=== PATIENT | male | born 1965 | race Caucasian/White ===

== ENCOUNTER 2016-04-19 10:43 | Inpatient (IN) | payer MEDICARE, OTHER ==
[2016-04-19 10:47] VITALS: BMI 28.1
[2016-04-19] MEDS ORDERED: Albuterol-Ipratrop 3 mg / 0.5 (3 ml) UD IH STA (11:07)
--- NOTE | 2016-04-19 11:08 | ED PDOC ---
Arrival/HPI - General Chief Complaint: Altered Mental Status Time Seen by Provider: 04/19/16 11:04 Historian: EMS - History of Present Illness Narrative History of Present Illness (Text): 04/19/16 11:07 A 50 year old male, whose past medical history includes hypertension and ESRD, presents to ED with paramedics after reportedly he was found "unresponsive at the [facility]" by a bystander. Patient reportedly was noted to be confused and lethargic and brought for evaluation. Patient unable to provide further history. Time/Duration: Prior to Arrival Symptom Onset: Other (unknown down time) Past Medical History - Cardiac Hx Hypertension: Yes - Pulmonary Hx Pneumonia: Yes - Neurological Hx Dizziness: Yes - HEENT Other/Comment: with dentures upper and lower dentures - Renal Hx Renal Disorder: Yes Hx Dialysis: Yes - Hematological/Oncological Hx Hepatitis B: Yes - Musculoskeletal/Rheumatological Hx Arthritis: Yes - Gastrointestinal Hx Gastrointestinal Ulcer: Yes (gi bleed) - Psychiatric Hx Substance Use: No - Surgical History Hx Open Heart Surgery: Yes - Anesthesia Hx Anesthesia: Yes Hx Anesthesia Reactions: No Hx Malignant Hyperthermia: No - Suicidal Assessment Feels Threatened In Home Enviroment: No Family/Social History Family/Social History: Unknown Family HX Smoking Status: Heavy Smoker > 10 Cigarettes Daily Hx Alcohol Use: Yes (occasionally) Hx Substance Use: No Allergies/Home Meds Allergies/Adverse Reactions: Allergies No Known Allergies Allergy (Verified 09/27/15 21:01) Home Medications: Home Meds Medication Instructions Recorded Confirmed Unobtainable 09/27/15 04/19/16 Review of Systems - Review of Systems Systems not reviewed;Unavailable: Acuity of Condition Gastrointestinal: absent: Vomiting Physical Exam - Physical Exam Narrative Physical Exam (Text): Head: Atraumatic. Normocephalic. Eyes: Pupils are NOT pinpoint, they are reactive minimally. No pathologic nystagmus noted. ENT: Mucous membranes are extremely dry and tacky. No drooling or pharyngeal edema. Neck: Supple. Full ROM. No JVD. No lymphadenopathy. Cardiovascular: Regular rate. Regular rhythm. Systolic murmur. Pulmonary/Chest: No evidence of respiratory distress. Not tachypneic. Mild rhonchi. Abdominal: Soft with mild distension. No pulsatile masses. No rebound or guarding. No incarcerated hernia. Back: No CVA tenderness. No midline deformity. Normal inspection. Extremities: No edema. Pulses intact. Rectal: ulceration, no melena or gross bleeding. Skin: Skin is cool and pale. Neurological: Patient is lethargic. Will respond to painful stimul and move all 4 extremities. Will open eyes to command at times but does not have meaningful verbal ineraction. No facial droop noted. Fine tremors. Hyperreflexive in lower extremities Rectal: no gross bleeding or melena Psychiatric: Poor eye contact. General: patient is found to have vials likely consistent with drug paraphernalia on his property upon arrival, police contacted regarding this 04/19/16 23:21 Vital Signs Reviewed: Yes Vital Signs Temp Pulse Resp BP Pulse Ox 04/19/16 15:48 95.7 F L 78 22 92/52 L 99 04/19/16 14:44 78 24 87/47 L 98 04/19/16 13:20 71 26 H 98/58 L 99 04/19/16 13:00 94.3 F L 70 16 93/57 L 97 04/19/16 12:50 76 26 H 101/53 L 90 L 04/19/16 12:35 60 29 H 83/45 L 91 L 04/19/16 12:20 68 23 95/59 L 91 L 04/19/16 11:09 91.9 F L 66 14 73/34 L 87 L Temperature: Hypothermic Blood Pressure: Hypotensive Respiratory Rate: Normal Appearance: Positive for: Ill-Appearing, Unkept Pain Distress: Severe Mental Status: Positive for: Lethargic Medical Decision Making ED Course and Treatment: 04/19/16 11:07 History obtained by EMS as paitent with AMS. Prior visits and studies reviewed: Prior Visits: Notes and results from previous visits were reviewed. Patient had a cardiac catheterization performed on 10/01/15, report showed: Report date: 10/01/15 13:46 Procedure: Right and left heart catherization with coronary angiography, left ventriculogram, right heart pressures, subclavian angiograms and supra-aortic valvular injection. Dictated by: Josh Kay MD The findings on catheterization included hemodynamic studies revealed a mean atrial pressure of 23 mmHG, the RV pressures were 44/13 mmHg. Because prosthetc tricupsid valve, thSwan-Anabell catheter could not advance to the pulmoary artery. LVEDP was 18 mmHg and no gradient across te aortic valve. Angiographic studies included a left ventriculogram was performed in the CARSON projection. In the CARSON projection, wall motion in within normal limits. Estimated ejection fraction is 55-60%. Supr-aortic valvular injection reveals trace aortic insufficiency. His coronary anatomy revealed a left main artery that eas unremarkable. The LAD and diagonal vessels reveled intimal irregularities without critical lesions. The circumflex artery and ontuse marginal branches reveled initmal irregularities without significant stenosis. The right coronary artery was a large vessel with slow filling. However, no coronary lesions were noted. Selective bilateral subclavian angiograms revealed no ostial stenoses in both vessels with no blockages noted. Angio-Seal was used to close the left femoral artery site. The patient tolerated the procedure well. Patient had a chest CT performed on 09/30/15, report showed: Report Date : 09/30/2015 09:59:05 PROCEDURE: CT Chest with contrast (Pulmonary Angiogram) Dictator : Westley Christiansen MD IMPRESSION: Bilateral pleural effusions, probably loculated. Moderate ascites. No evidence of pulmonary embolus Progress Notes: Patient on initial evaluation is at times responsive to stimuli. He is a dialysis patient, and at some point verbalized he was due for dialysis. Prior admission to Dr. Talavera was reviewed, patient does not follow-up with Dr. Talavera on a consistent basis. Patient reportedly had seen Dr. Rossi from nephrology in the past, I did call his office although they state he is not thier patient. He is hypothermic and was placed on EDDI hugger. Patient was given d50 prior to arrival with no significant improvement in mental status. He has heroin noted on his possession, prior history of drug and alcohol abuse. Narcan given and he appears more interactive. He is not in respiratory distress, although has had hypotension on re- evaluation. EKG difficult to interpret due to tremulousness, although patient is noted to have heart rate 80s. Patient given boluses of iv fluids. Report Date : 04/19/2016 13:04:28 Procedure: Chest xray Dictator : Qiana Estrada MD IMPRESSION: Mild pulmonary venous congestion. Background of COPD. Report Date : 04/19/2016 14:11:04 PROCEDURE: CT HEAD WITHOUT CONTRAST. Dictator : Qiana Estrada MD IMPRESSION: No acute intracranial abnormality. Moderate global parenchymal volume loss, advanced for the patient's age. Patient with improvement in BP. Mental status remains slightly more interactive. Suspect possible overdose, although cannot exclude shock, sepsis ( although initial lactate unremarkable). Prior cardiac cath reviewed. He is hypocalcemic. Abdomen appears nontender with serial exams. Will admit to ICU, consult nephrology for dialysis, continued to monitor cardiac status and serial neurological exams. Will maintain cardiovascular monitoring in the ICU. Bp to be monitored to assess for any further volume or pressor support. Will continue to monitor neuro status. Case d/w ICU team accepts admission and will admit to hospitalist service. Further medications as per icu team, care turned over to certified nurses' aide. 04/19/16 23:23 - Critical Care Critical Care Minutes: 60 minutes - Lab Interpretations Lab Results: 04/19/16 12:56 04/19/16 12:56 Lab Results 04/19/16 12:56: WBC 6.5 D, RBC 4.03, Hgb 11.8 L, Hct 36.5 L, MCV 90.6, MCH 29.3 , MCHC 32.3, RDW 14.8 H, Plt Count 113 L, MPV 12.3 H, Gran % 78.1 H, Lymph % ( Auto) 9.9 L, [place] % (Auto) 11.3 H, Eos % (Auto) 0.5 L, Baso % (Auto) 0.2, Gran # 5.05, Lymph # 0.6 L, [place] # 0.7 H, Eos # 0.0, Baso # 0.01, PT 12.4 H, INR 1.15 H, APTT 27.3, Sodium 139, Potassium 3.7, Chloride 101, Carbon Dioxide 26, Anion Gap 16, BUN 60 H, Creatinine 8.6 H*, Est GFR ( Amer) 8, Est GFR ( Non-Af Amer) 7, Random Glucose 77, Calcium 6.5 L*, Total Bilirubin 1.5 H, AST 50 , ALT 33, Alkaline Phosphatase 198 H, Lactate Dehydrogenase 713 H, Total Creatine Kinase 971 H, CK-MB (CK-2) 20.5 H, CK-MB (CK-2) % 2.1 L, Troponin I 0.01 D, NT-Pro-B Natriuret Pep 55817 H, Total Protein 4.5 L, Albumin 1.9 L, Globulin 2.6, Albumin/Globulin Ratio 0.7 L, Procalcitonin 0.92 H, Alcohol, Quantitative < 10 04/19/16 12:30: pCO2 47 H, pO2 52.0 L, HCO3 23.7, ABG pH 7.31 L, ABG Total CO2 25.1, ABG O2 Saturation 83.7 L, ABG Base Excess -2.9 L, ABG Potassium 3.7, Glucose 75, Lactate 1.5, FiO2 21.0, Sodium 137.0, Chloride 104.0, Arterial Blood Potassium 3.7, Digoxin 1.1 I have reviewed the lab results: Yes - RAD Interpretation Radiology Orders: 04/19/16 11:04 HEAD W/O CONTRAST [CT] Stat CHEST PORTABLE [RAD] Stat - EKG Interpretation EKG Interpretation (Text): 04/19/16 15:14 EKG at 13:12 extremely poor quality due to tremors, rate appears to be 69-70, sinus rhythm versus accelerated junction Interpreted by ED Physician: Yes Type: 12 lead EKG - Medication Orders Current Medication Orders: Heparin Sodium (Porcine) (Heparin) 5,000 units SC Q12 SIMON PRN Reason: Protocol Ceftriaxone Sodium (Rocephin 2 Gm Ivpb) 100 mls @ 100 mls/hr IVPB DAILY SIMON PRN Reason: Protocol Last Admin: 04/19/16 17:47 Dose: 100 MLS/HR eMAR Start Stop Document 04/19/16 17:47 CLA (Rec: 04/19/16 17:48 CLA [id number]) Intravenous Solution Start Date 04/19/16 Start Time 17:48 End Date 04/19/16 End time 18:55 Total Infusion Time 67 Lactulose (Enulose) 20 gm PO BID [facility] Last Admin: 04/19/16 17:48 Dose: 20 GM Lorazepam (Ativan) 2 mg IVP Q4H PRN; Protocol PRN Reason: Agitation Midodrine (Proamatine) 10 mg PO DAILY [facility] Last Admin: 04/19/16 17:48 Dose: 10 MG Pantoprazole Sodium (Protonix Inj) 40 mg IVP DAILY [facility] Rifaximin (Xifaxan) 550 mg PO BID SIMON PRN Reason: Protocol Last Admin: 04/19/16 17:48 Dose: 550 MG Discontinued Medications Albuterol/Ipratropium (Duoneb 3 Mg/0.5 Mg (3 Ml) Ud) 3 ml IH STAT STA Stop: 04/19/16 11:08 Last Admin: 04/19/16 11:54 Dose: 3 ML Heparin Sodium (Porcine) (Heparin Lock Flush) Confirm Administered Dose 300 unit .ROUTE .STK-MED ONE Stop: 04/19/16 12:31 Last Admin: 04/19/16 12:55 Dose: 300 UNIT Sodium Chloride (Sodium Chloride 0.9%) 500 mls @ 1,000 mls/hr IV .Q30M STA Stop: 04/19/16 12:02 Last Admin: 04/19/16 11:47 Dose: 1,000 MLS/HR eMAR Start Stop Document 04/19/16 11:47 JOL (Rec: 04/19/16 11:47 [id number] [id number]) Intravenous Solution Start Date 04/19/16 Start Time 11:47 End Date 04/19/16 End time 12:17 Total Infusion Time 30 Sodium Chloride (Sodium Chloride 0.9%) 500 mls @ 1,000 mls/hr IV .Q30M STA Stop: 04/19/16 15:22 Last Admin: 04/19/16 15:41 Dose: 1,000 MLS/HR eMAR Start Stop Document 04/19/16 15:41 JOL (Rec: 04/19/16 15:41 [id number] [id number]) Intravenous Solution Start Date 04/19/16 Start Time 15:41 End Date 04/19/16 End time 16:11 Total Infusion Time 30 Vancomycin HCl (Vancomycin 1gm) 250 mls @ 167 mls/hr IVPB DAILY ONE PRN Reason: Protocol Stop: 04/19/16 18:19 Last Admin: 04/19/16 17:48 Dose: 167 MLS/HR eMAR Start Stop Document 04/19/16 17:48 CLA (Rec: 04/19/16 17:48 CLA [id number]) Intravenous Solution Start Date 04/19/16 Start Time 17:48 End Date 04/19/16 End time 19:30 Total Infusion Time 102 Influenza Virus Vaccine (Fluvirin) 45 mcg IM .ONCE ONE Stop: 04/19/16 22:17 Naloxone HCl (Narcan) Confirm Administered Dose 0.4 mg .ROUTE .STK-MED ONE Stop: 04/19/16 11:44 Last Admin: 04/19/16 11:44 Dose: 0.4 MG Naloxone HCl (Narcan) 0.4 mg IVP STAT STA Stop: 04/19/16 11:46 Last Admin: 04/19/16 12:48 Dose: 0.4 MG IVP Administration Document 04/19/16 12:48 ANTONIO (Rec: 04/19/16 12:49 ANTONIO [id number]) Charges for Administration # of IVP Administrations 1 Pneumococcal Polyvalent Vaccine (Pneumovax 23 Vaccine) 0.5 ml IM .ONCE ONE Stop: 04/19/16 22:17 Disposition/Present on Arrival - Present on Arrival Any Indicators Present on Arrival: Yes History of DVT/PE: No History of Uncontrolled Diabetes: No Urinary Catheter: Yes History of Decub. Ulcer: No History Surgical Site Infection Following: None - Disposition Have Diagnosis and Disposition been Completed?: Yes Diagnosis: Altered mental status, Overdose, Renal failure, Hypocalcemia, Hypothermia, Hypotension Disposition: HOSPITALIZED Disposition Time: 13:00 Patient Plan: Admission, ICU Condition: CRITICAL
[2016-04-19] MEDS ORDERED: Sodium Chloride 0.9% 500 ML IV STA ×2 (11:33→14:53)
[2016-04-19] MEDS ORDERED: Naloxone 0.4 mg/ml Inj (Adult) SC STA (11:43)
[2016-04-19] MEDS ORDERED: Naloxone 0.4 mg/ml Inj (Adult) ONE (11:43)
[2016-04-19] MEDS ORDERED: Naloxone 0.4 mg/ml Inj (Adult) IVP STA (11:45)
[2016-04-19 12:57] LABS: ADD MANUAL DIFF? NO
[2016-04-19 12:58] LABS: ARTERIAL BLOOD GAS HCO3 23.7 mmol/L (21-28); ARTERIAL BLOOD GAS PH 7.31 (7.35-7.45)
[2016-04-19 13:01] LABS: BASO # 0.01 K/mm3 (0.0-2.0); BASO % 0.2 % (0.0-3.0); EOS % 0.5 % (1.5-5.0); GRAN # 5.05 (1.4-6.5); GRAN % 78.1 % (50.0-68.0); HEMATOCRIT 36.5 % (42.0-52.0); LYMPH # 0.6 (1.2-3.4); LYMPH % 9.9 % (22.0-35.0); MEAN CELL VOLUME 90.6 fL (80.0-105.0); MEAN CORPUSCULAR HEMOGLOBIN 29.3 pg (25.0-35.0); MEAN CORPUSCULAR HGB CONC 32.3 g/dl (31.0-37.0); MEAN PLATELET VOLUME 12.3 fl (7.0-11.0); MONO # 0.7 (0.1-0.6); MONO % 11.3 % (1.0-6.0); PLATELET COUNT 113 10^3/uL (120.0-450.0); RED CELL DISTRIBUTION WIDTH 14.8 % (11.5-14.5); WHITE BLOOD COUNT 6.5 10^3/ul (4.5-11.0)
--- NOTE | 2016-04-19 13:05 | RAD ---
HISTORY: Altered mental status COMPARISON: 09/29/2015 FINDINGS: The right-sided central venous catheter terminates in the right atrium. There is stable appearance of a left subclavian stent. LUNGS: Lung markings are accentuated. There is chronic scarring in both lungs. PLEURA: No significant pleural effusion identified, no pneumothorax apparent. CARDIOVASCULAR: The heart is normal in size. Status post median sternotomy and aortic valve replacement. OSSEOUS STRUCTURES: No significant abnormalities. VISUALIZED UPPER ABDOMEN: Normal. OTHER FINDINGS: None. IMPRESSION: Mild pulmonary venous congestion. Background of COPD.
[2016-04-19 13:11] LABS: ALB/GLOB RATIO 0.7 (1.1-1.8); BILIRUBIN,TOTAL 1.5 mg/dL (0.2-1.3); POTASSIUM 3.7 mmol/L (3.6-5.0); TOTAL PROTEIN 4.5 g/dL (5.8-8.3)
[2016-04-19 13:13] LABS: CALCIUM 6.5 mg/dL (8.4-10.5); INR 1.15 (0.93-1.08); PARTIAL THROMBOPLASTIN TIME 27.3 Seconds (23.7-30.8)
[2016-04-19 13:32] LABS: TROPONIN I 0.01 ng/mL
--- NOTE | 2016-04-19 14:12 | CT ---
PROCEDURE: CT HEAD WITHOUT CONTRAST. HISTORY: Altered mental status COMPARISON: None available. TECHNIQUE: Axial computed tomography images were obtained through the head/brain without intravenous contrast. Radiation dose: Total exam DLP = 812.28 mGy-cm. FINDINGS: HEMORRHAGE: No intracranial hemorrhage. BRAIN: There are mild chronic microangiopathic changes. There is no mass, mass effect or abnormal extra-axial fluid collection. VENTRICLES: There is moderate global parenchymal volume loss and proportionate enlargement of the ventricles and cortical sulci. CALVARIUM: Within normal limits. PARANASAL SINUSES: There is mild polypoid mucosal thickening in the paranasal sinuses. MASTOID AIR CELLS: Predominantly clear. OTHER FINDINGS: None. IMPRESSION: No acute intracranial abnormality. Moderate global parenchymal volume loss, advanced for the patient's age.
--- NOTE | 2016-04-19 15:46 | US ---
HISTORY: Ascites COMPARISON: None. TECHNIQUE: Grayscale imaging was performed. FINDINGS: LIVER: Measures 19.4 cm. Normal echogenicity of the liver parenchyma. No mass. No intrahepatic bile duct dilatation. GALLBLADDER: Unremarkable. No gallstones. COMMON BILE DUCT: Measures 5.0 mm. No stones. No dilatation. PANCREAS: Unremarkable as visualized. No mass. No ductal dilatation. RIGHT KIDNEY: Measures 7.3cm. Small in size with diffuse increased echogenicity. No hydronephrosis or nephrolithiasis. LEFT KIDNEY: Measures 7.6cm. Small in size with diffuse increased echogenicity. No hydronephrosis or nephrolithiasis. SPLEEN: Mildly enlarged and measures 13.3 cm. Normal echotexture. AORTA: No aneurysmal dilatation. IVC: Unremarkable. OTHER FINDINGS: There are moderate bilateral pleural effusions. There is moderate abdominal ascites. IMPRESSION: Moderate bilateral pleural effusions and moderate abdominal ascites. Medical renal disease. Mild hepatosplenomegaly.
--- NOTE | 2016-04-19 16:10 | CP.PCM.CON ---
<Foster Santoyo - Last Filed: 04/19/16 18:14> History of Present Illness - History of Present Illness History of Present Illness: Medicine PGY1 - GI service cc: ALE HPI: Patient is a 50yo male with past medical history of CAD s/p CABG, Hepatitis C, Ascites, Valvular disease, ESRD on hemodialysis (//Mon) that presented via EMS from [facility] care home with altered mental status. Patient was lethargic on presentation and unable to provide thorough history. Per ED history , patient was found by bystander at the [facility]. Multiple bags of heroine were found in his possession and he was subsequently given 2 doses of narcan. On arrival to the ED, patient's vitals were as follows: temperature 91.9, pulse 66bpm, blood pressure 73/34, respiratory rate 16, o2 saturation 87% on room air. Labs were notable for hgb of 11.8, hct 36.5, platelets 113, INR 1.15, total biliribuin 1.5, ALKP 198, BUN 60, Creatinine 8.6, Albumin 1.9, calcium 6.5. Patient was admitted to the ICU for further evaluation/treatment. 12point ROS limited due to patient status PMHx: CAD s/p CABG, Chronic Hepatitis C, ascites, valvular disease, lymphadenopathy, ascites, ESRD PSHx: CABG PFHx: Unknown Allergies: NKDA Social History: Homeless, lives at the [facility]. History of drug abuse heroine/ cocaine, tobacco use over 20yrs, alcohol abuse Review of Systems - Review of Systems Review of Systems: 12 point ROS limited due to patient status Past Patient History - Past Social History Smoking Status: Heavy Smoker > 10 Cigarettes Daily - CARDIAC Hx Hypertension: Yes - PULMONARY Hx Pneumonia: Yes - NEUROLOGICAL Hx Dizziness: Yes - HEENT Other/Comment: with dentures upper and lower dentures - RENAL Hx Chronic Kidney Disease: Yes Hx Dialysis: Yes - HEMATOLOGICAL/ONCOLOGICAL Hx Hepatitis B: Yes - MUSCULOSKELETAL/RHEUMATOLOGICAL Hx Arthritis: Yes - PSYCHIATRIC Hx Substance Use: No - SURGICAL HISTORY Hx Open Heart Surgery: Yes - ANESTHESIA Hx Anesthesia: Yes Hx Anesthesia Reactions: No Hx Malignant Hyperthermia: No Meds Allergies/Adverse Reactions: Allergies Allergy/AdvReac Type Severity Reaction Status Date / Time No Known Allergies Allergy Verified 09/27/15 21:01 - Medications Medications: Current Medications Pantoprazole Sodium (Protonix Inj) 40 mg IVP DAILY SIMON Physical Exam - Constitutional Appears: In Acute Distress, Unkempt, Chronically Ill - Head Exam Head Exam: ATRAUMATIC, NORMOCEPHALIC - Eye Exam Eye Exam: EOMI - ENT Exam ENT Exam: Mucous Membranes Dry - Respiratory Exam Respiratory Exam: Decreased Breath Sounds. absent: Rales, Rhonchi, Wheezes - Cardiovascular Exam Cardiovascular Exam: RRR, +S1, +S2, Systolic Murmur. absent: Rubs - GI/Abdominal Exam GI & Abdominal Exam: Distended (mild distention), Soft. absent: Firm, Guarding , Rebound, Rigid, Tenderness - Extremities Exam Extremities exam: Negative for: pedal edema - Neurological Exam Additional comments: lethargic; responds to name and is able to move all 4 extremities. Results - Vital Signs Recent Vital Signs: Last Vital Signs Temp 95.7 F L 04/19/16 15:48 Pulse 78 04/19/16 15:48 Resp 22 04/19/16 15:48 BP 92/52 L 04/19/16 15:48 Pulse Ox 99 04/19/16 15:48 - Labs Result Diagrams: 04/19/16 12:56 04/19/16 12:56 Assessment & Plan - Assessment and Plan (Free Text) Assessment: 50yo male with history of CAD s/p CABG, Hepatitis C, Ascites, Valvular disease, ESRD on hemodialysis (/) that presented via EMS from [facility] with altered mental status 1. Hepatic encephalopathy 2. Chronic hepatitis C 3. Ascites 4. ESRD on hemodialysis 5. CAD Plan: -Continue lactulose 20gm BID, titrate to 2-3 bowel movements per day -Continue xifaxan 550mg BID -Abdominal paracentesis ordered -Abdominal US reviewed; bilateral pleural effusions and moderate abdominal ascites; mild hepatosplenomegaly -MELD-Na score of 23 -Continue current medical management as per ICU/primary team -Nephrology on board - f/u recommendations Patient seen and case discussed with attending, Dr. Quiroz - Date & Time Date: 04/19/16 Time: 16:28 <Ezekiel Quiroz - Last Filed: 04/19/16 20:18> Meds - Medications Medications: Current Medications Heparin Sodium (Porcine) (Heparin) 5,000 units SC Q12 SIMON PRN Reason: Protocol Ceftriaxone Sodium (Rocephin 2 Gm Ivpb) 100 mls @ 100 mls/hr IVPB DAILY SIMON PRN Reason: Protocol Last Admin: 04/19/16 17:47 Dose: 100 mls/hr Lactulose (Enulose) 20 gm PO BID SIMON Last Admin: 04/19/16 17:48 Dose: 20 gm Lorazepam (Ativan) 2 mg IVP Q4H PRN; Protocol PRN Reason: Agitation Midodrine (Proamatine) 10 mg PO DAILY [facility] Last Admin: 04/19/16 17:48 Dose: 10 mg Pantoprazole Sodium (Protonix Inj) 40 mg IVP DAILY [facility] Rifaximin (Xifaxan) 550 mg PO BID SIMON PRN Reason: Protocol Last Admin: 04/19/16 17:48 Dose: 550 mg Results - Vital Signs Recent Vital Signs: Last Vital Signs Temp 96.1 F L 04/19/16 16:05 Pulse 77 04/19/16 18:00 Resp 22 04/19/16 18:00 BP 101/44 L 04/19/16 18:00 Pulse Ox 90 L 04/19/16 18:00 - Labs Result Diagrams: 04/19/16 12:56 04/19/16 12:56 Labs: Laboratory Results - last 24 hr 04/19/16 04/19/16 04/19/16 16:45 17:52 18:00 POC Glucose (mg/dL) 58 L 55 L Ammonia 19 Acetaminophen < 10.0 L Attending/Attestation - Attestation I have personally seen and examined this patient.: Yes I have fully participated in the care of the patient.: Yes I have reviewed all pertinent clinical information: Yes Notes (Text): 04/19/16 20:14 50 year old male with h/o CAD s/p CABG, chronic hepatitis C, ESRD on HD, polysubstance abuse including current heroin use admitted with altered mental status. 1. Altered mental status 2. Ascites 3. Chronic hepatitis C Plan: -altered mental status may be 2/2 drug abuse, uremia, or hepatic encephalopathy , or multifactorial -ammonia is unremarkable -mild asterixis on exam -no definite diagnosis of cirrhosis on imaging, but he does have thrombocytopenia and chronic hepatitis c -his paracentesis from 09/30/15 had a SAAG > 1.1 suggestive of portal hypertension -would empirically treat for HE until he improves -recommend lactulose and rifaxamin -recommend US guided paracentesis to reevaluate saag, TP, and r/o SBP
--- NOTE | 2016-04-19 16:35 | CP.PCM.CON ---
<Adela Foreman - Last Filed: 04/19/16 16:52> History of Present Illness - History of Present Illness History of Present Illness: PGY-1 ICU consult note. 50 yo male with PMH of ESRD on HD (T,,S) cirrhosis, hep C, alcohol abuse, and h/o cocaine and heroin use presented to ED after being found unresponsive. Patient was reportedly found by bystander at [facility]. Patient was minimally responsive in ED. Head CT showed no intracranial abnormalities. Multiple bags of heroin were found in his belonging. Patient was give 2 doses of narcan. Pt become more alert but remains lethargic and confused. PMH; ESRD on HD (T,Th,S) cirrhosis, hep C, alcohol abuse, and h/o cocaine and heroin use PSH; CABG family hx; unknown med; unknown allergy; NKDA Review of Systems - Review of Systems Systems not reviewed;Unavailable: Altered Mental Status Past Patient History - Past Social History Smoking Status: Heavy Smoker > 10 Cigarettes Daily - CARDIAC Hx Hypertension: Yes - PULMONARY Hx Pneumonia: Yes - NEUROLOGICAL Hx Dizziness: Yes - HEENT Other/Comment: with dentures upper and lower dentures - RENAL Hx Chronic Kidney Disease: Yes Hx Dialysis: Yes - HEMATOLOGICAL/ONCOLOGICAL Hx Hepatitis B: Yes - MUSCULOSKELETAL/RHEUMATOLOGICAL Hx Arthritis: Yes - PSYCHIATRIC Hx Substance Use: No - SURGICAL HISTORY Hx Open Heart Surgery: Yes - ANESTHESIA Hx Anesthesia: Yes Hx Anesthesia Reactions: No Hx Malignant Hyperthermia: No Meds Allergies/Adverse Reactions: Allergies Allergy/AdvReac Type Severity Reaction Status Date / Time No Known Allergies Allergy Verified 09/27/15 21:01 - Medications Medications: Current Medications Pantoprazole Sodium (Protonix Inj) 40 mg IVP DAILY SIMON Physical Exam - Head Exam Head Exam: ATRAUMATIC, NORMOCEPHALIC - Eye Exam Eye Exam: EOMI. absent: Scleral icterus Pupil Exam: PERRL. absent: NORMAL ACCOMODATION Additional comments: Pupils are sluggish - ENT Exam ENT Exam: Mucous Membranes Dry - Respiratory Exam Respiratory Exam: Clear to Auscultation Bilateral, NORMAL BREATHING PATTERN. absent: Decreased Breath Sounds, Wheezes, Respiratory Distress - Cardiovascular Exam Cardiovascular Exam: REGULAR RHYTHM. absent: Tachycardia, Diastolic murmur, Systolic Murmur - GI/Abdominal Exam GI & Abdominal Exam: Distended, Normal Bowel Sounds, Soft. absent: Guarding, Tenderness - Extremities Exam Extremities exam: Positive for: pedal pulses present. Negative for: pedal edema - Neurological Exam Additional comments: awake, oriented x1, able to follow simple commends - Skin Skin Exam: Dry, Intact, Normal Color Results - Vital Signs Recent Vital Signs: Last Vital Signs Temp 95.7 F L 04/19/16 15:48 Pulse 78 04/19/16 15:48 Resp 22 04/19/16 15:48 BP 92/52 L 04/19/16 15:48 Pulse Ox 99 04/19/16 15:48 - Labs Result Diagrams: 04/19/16 12:56 04/19/16 12:56 Assessment & Plan - Assessment and Plan (Free Text) Assessment: 50 yo male with PMH of ESRD on HD (T,TH,S) cirrhosis, hep C, alcohol abuse, and h/o cocaine and heroin use presented with AMS 2/2 drug overdose v. hepatic encephalopathy v. hypoglycemia Plan: Neuro -AMS 2/2 drug overdose v. hepatic encephalopathy v. hypoglycemia - received 2 doses of narcan in ED, increase in responsiveness - pt is awake and attempts to answer question - drug screen pending - glucose of 77, cont to monitor - if glucose decrease will start D10 IVF - ammonia level pending to r/o hepatic encephalopathy - if elevated will insert NG tube and start lactulose - cont to monitor cardio - Low BP - pt received 1 liter NS in ED, BP improved - trops neg x1 - B[place], [id number] - cont to monitor - maintain MAP>65 pulm - cxr shows mild pulm venous congestion and background of COPD - Saturating well on non rebreather - cont supplemental O2 to maintain SaO2>90 - cont to monitor GI - h/o hep c, cirrhosis with ascites - abd US showed moderate ascites with mild hepatosplenomegaly and moderate bilateral pleural effusions - mildly elevated total bilirubin of 1.5, AST and ALT is wnl - ammonia level pending to r/o hepatic encephalopathy - if elevated will insert NG tube and start lactulose - GI consulted, Dr. Quiroz - NPO - swallow eval when patient is awake and alert - protonix ppx Renal - ESRD on HD - nephro consult, Dr. Gonzalez - corrected Ca of 8.2 - monitor electrolytes, replace as needed endo - glucose of 77 - fingerstick q1h - if hypoglycemia will start D10 IVF ID - hypothermia (91.9) without leukocytosis - lia hugger placed - blood, urine cultures - procalcitonin pending - lactate in wnl - currently low suspension for infection will hold off on abx d/w attending <Kimberly Brush MD - Last Filed: 04/19/16 17:40> Meds - Medications Medications: Current Medications Heparin Sodium (Porcine) (Heparin) 5,000 units SC Q12 SIMON PRN Reason: Protocol Ceftriaxone Sodium (Rocephin 2 Gm Ivpb) 100 mls @ 100 mls/hr IVPB DAILY SIMON PRN Reason: Protocol Vancomycin HCl (Vancomycin 1gm) 250 mls @ 167 mls/hr IVPB DAILY ONE PRN Reason: Protocol Stop: 04/19/16 18:19 Lactulose (Enulose) 20 gm PO BID SIMON Lorazepam (Ativan) 2 mg IVP Q4H PRN; Protocol PRN Reason: Agitation Midodrine (Proamatine) 10 mg PO DAILY SIMON Pantoprazole Sodium (Protonix Inj) 40 mg IVP DAILY SIMON Rifaximin (Xifaxan) 550 mg PO BID SIMON PRN Reason: Protocol Results - Vital Signs Recent Vital Signs: Last Vital Signs Temp 96.1 F L 04/19/16 16:05 Pulse 71 04/19/16 17:05 Resp 37 H 04/19/16 17:05 BP 81/40 L 04/19/16 17:05 Pulse Ox 93 L 04/19/16 17:05 - Labs Result Diagrams: 04/19/16 12:56 04/19/16 12:56 Labs: Laboratory Results - last 24 hr 04/19/16 16:45 POC Glucose (mg/dL) 58 L Attending/Attestation - Attestation I have personally seen and examined this patient.: Yes I have fully participated in the care of the patient.: Yes I have reviewed all pertinent clinical information: Yes Notes (Text): 04/19/16 17:36 50 y/o M found difficult to arrouse at [facility] skilled nursing. Brought to the ER hypothermic and confused. Thought to have possibly ingested or used heroin, narcan given with minimal response Pt awake and answering some questions upon my arrival. CT head un remarakable , neuro exam doesn't show any focal defecits Pt has a questionable liver cirrohsis history, need imaging and records to show. Hepatitis history and could be encephalopathic from Liver failure, no signs of SBP U/S abd ordered for ascites screen and need for drainage , could show liver morphology Needs Hepatology consult ESRD received, 1L normal saline due to dehydration and hypotention. Currently awake and answering more questions. Explains that sbp normally 80's and takes midodrine daily Nephrology consult pending, HD in the a.m Neuro checks q 1hr Need to follow for any late intoxication syndromes. cc time 65 min
[2016-04-19] MEDS ORDERED: Vancomycin 1gm in NS 250ml 250 ML IVPB ONE (16:50)
--- NOTE | 2016-04-19 16:55 | CP.PCM.HP ---
<Joyce Ceja - Last Filed: 04/19/16 17:23> History of Present Illness - History of Present Illness History of Present Illness: CC: Found unconscious. Patient is a 50 y/o with PMH of alcohol abuse, cocaine and heroine abuse, ascites with liver cirrhosis, ESRD ( on HD , , and Monday), CAD with CABG in the past brought in by ambulance after patient was found unconscious at [facility], where patient resides. Patient was found with bags of heroin in front of him. In the ED patient was giving 2 doses of narcan. Patient is currently awake, but very altered and lethargic. Patient is only complaining of back pain. Unable to obtain a detail history due to mental status. PMH: alcohol abuse, cocaine and heroine abuse, ascites with liver cirrhosis, ESRD ( on HD , , and Monday), CAD with CABG PSH: CABG, cardiac cath, paracentesis Home meds: unknown Social: as per prior record, patient is alcoholic, uses heroinr, cocaine. Homeless, lives in [facility]. Allergy: nkda as per records. Present on Admission - Present on Admission Any Indicators Present on Admission: No History of DVT/PE: No History of Uncontrolled Diabetes: No Urinary Catheter: No Decubitus Ulcer Present: No Review of Systems - Review of Systems Review of Systems: Unable to obtain due to mental status. Past Patient History - Past Social History Smoking Status: Heavy Smoker > 10 Cigarettes Daily - CARDIAC Hx Hypertension: Yes - PULMONARY Hx Pneumonia: Yes - NEUROLOGICAL Hx Dizziness: Yes - HEENT Other/Comment: with dentures upper and lower dentures - RENAL Hx Chronic Kidney Disease: Yes Hx Dialysis: Yes - HEMATOLOGICAL/ONCOLOGICAL Hx Hepatitis B: Yes - MUSCULOSKELETAL/RHEUMATOLOGICAL Hx Arthritis: Yes - PSYCHIATRIC Hx Substance Use: No - SURGICAL HISTORY Hx Open Heart Surgery: Yes - ANESTHESIA Hx Anesthesia: Yes Hx Anesthesia Reactions: No Hx Malignant Hyperthermia: No Meds Allergies/Adverse Reactions: Allergies Allergy/AdvReac Type Severity Reaction Status Date / Time No Known Allergies Allergy Verified 09/27/15 21:01 Physical Exam - Constitutional Appears: Toxic, No Acute Distress, Unkempt - Head Exam Head Exam: ATRAUMATIC, NORMAL INSPECTION, NORMOCEPHALIC - Eye Exam Eye Exam: EOMI, Normal appearance, PERRL. absent: Conjunctival injection, Nystagmus, Scleral icterus Pupil Exam: Fixed Additional comments: equal, sluggish. + 2 - ENT Exam ENT Exam: Mucous Membranes Dry Additional comments: left port cath - Neck Exam Neck exam: Positive for: Normal Inspection - Respiratory Exam Respiratory Exam: Decreased Breath Sounds, NORMAL BREATHING PATTERN. absent: Rales, Rhonchi, Wheezes, Respiratory Distress, Stridor - Cardiovascular Exam Cardiovascular Exam: REGULAR RHYTHM, RRR, +S1, +S2. absent: Diastolic murmur, JVD, Rubs, Systolic Murmur - GI/Abdominal Exam GI & Abdominal Exam: Distended, Normal Bowel Sounds, Rigid (mild, + fluid wave.) , Soft, Tenderness. absent: Guarding - Extremities Exam Extremities exam: Negative for: pedal edema, tenderness Additional comments: left avf - Neurological Exam Additional comments: a&ox1. unable to assess neurological status due to mental status. Grossly moves his extremities. - Psychiatric Exam Psychiatric exam: Flat Affect - Skin Skin Exam: Dry, Warm Additional comments: dry, flaking skin in the lower extremities. Results - Vital Signs Recent Vital Signs: Last Vital Signs Temp 95.7 F L 04/19/16 15:48 Pulse 78 04/19/16 15:48 Resp 22 04/19/16 15:48 BP 92/52 L 04/19/16 15:48 Pulse Ox 99 04/19/16 15:48 - Labs Result Diagrams: 04/19/16 12:56 04/19/16 12:56 Labs: Laboratory Results - last 24 hr 04/19/16 04/19/16 04/19/16 12:30 12:56 16:45 WBC 6.5 D RBC 4.03 Hgb 11.8 L Hct 36.5 L MCV 90.6 MCH 29.3 MCHC 32.3 RDW 14.8 H Plt Count 113 L MPV 12.3 H Gran % 78.1 H Lymph % (Auto) 9.9 L [place] % (Auto) 11.3 H Eos % (Auto) 0.5 L Baso % (Auto) 0.2 Gran # 5.05 Lymph # 0.6 L [place] # 0.7 H Eos # 0.0 Baso # 0.01 PT 12.4 H INR 1.15 H APTT 27.3 pCO2 47 H pO2 52.0 L HCO3 23.7 ABG pH 7.31 L ABG Total CO2 25.1 ABG O2 Saturation 83.7 L ABG Base Excess -2.9 L ABG Potassium 3.7 Sodium 137.0 139 Chloride 104.0 101 Glucose 75 Lactate 1.5 FiO2 21.0 Potassium 3.7 Carbon Dioxide 26 Anion Gap 16 BUN 60 H Creatinine 8.6 H* Est GFR ( Amer) 8 Est GFR (Non-Af Amer) 7 POC Glucose (mg/dL) 58 L Random Glucose 77 Calcium 6.5 L* Total Bilirubin 1.5 H AST 50 ALT 33 Alkaline Phosphatase 198 H Lactate Dehydrogenase 713 H Total Creatine Kinase 971 H CK-MB (CK-2) 20.5 H CK-MB (CK-2) % 2.1 L Troponin I 0.01 D NT-Pro-B Natriuret Pep 88272 H Total Protein 4.5 L Albumin 1.9 L Globulin 2.6 Albumin/Globulin Ratio 0.7 L Arterial Blood Potassium 3.7 Digoxin 1.1 Alcohol, Quantitative < 10 Assessment & Plan - Assessment and Plan (Free Text) Assessment: 50 y/o with PMH of alcohol abuse, cocaine and heroine abuse, ascites with liver cirrhosis, ESRD ( on HD , , and Monday), CAD with CABG, latest cardiac cath normal EF 09/2015. Plan: 1) AMS likely secondary to drug overdose, r/o sepsis versus hyperuremia versus AL versus CVA versus hepatic encephalopathy. - CT head with no acute ischemia - will obtain toxicology panel - alcohol levl <10 - EKG with low voltage junction-> will repeat - Trop negative x1, will trend - pending ammonia level - speech and swallow eval - seizure and fall precaution. 2) Sirs with sbp as the possible source - hypothermic-> continue cooling blanket - mendieta cultures sent - will obtain procal - chest x-ray with vascular congestion - no wbc - no lactic acidosis - tachycardic and tachypneic - abdominal u/s with moderate ascites-> will consult IR for paracentesis. - will start rocephin, will give one dose of vanco 3) Low voltage junction on ekg - repeat ekg - Normal calcium and potassium - cardio consult - will consider repating echo 4) chronic thrombocytopenia likely from chronic alcohol abuse. - plt 113- will observe for now 5) ESRD - HD due today - neprho consulted for HD 6) Hypercapneic/hypoxemic respiratory distress with respiratory acidosis - saturating well on non rebreather - in icu for monitoring 7) h.o alcohol abuse - ciwa protocal - Ativan prn forn withdrawal 8) h/o liver cirrhosis secondary to hep c - gi consulted - mod ascites - ir for paracentesis to r/o sbp. - prophylactic abx for sbp. 9) Mild rhabdo - cpk 971 - will continue to trend 10) Hypotension- r/o sepsis/septic shock - s/p a litter of fluid bolus - monitor bp in icu 11) ppi for gi prophylaxis 12) DVT prophylaxis: heparin sc. Patient seen, examined, case discussed with Dr Villanueva. - Date & Time Date: 04/19/16 Time: 17:30 <Rich RILEY,Luis - Last Filed: 04/20/16 12:23> Results - Vital Signs Recent Vital Signs: Last Vital Signs Temp 98.3 F 04/20/16 05:58 Pulse 79 04/20/16 06:12 Resp 22 04/20/16 06:12 BP 105/48 L 04/20/16 05:30 Pulse Ox 95 04/20/16 05:59 - Labs Result Diagrams: 04/20/16 10:20 04/20/16 07:00 Labs: Laboratory Results - last 24 hr 04/19/16 04/19/16 04/19/16 16:45 17:52 18:00 WBC RBC Hgb Hct MCV MCH MCHC RDW Plt Count MPV Gran % Lymph % (Auto) [place] % (Auto) Eos % (Auto) Baso % (Auto) Gran # Lymph # [place] # Eos # Baso # Sodium Potassium Chloride Carbon Dioxide Anion Gap BUN Creatinine Est GFR ( Amer) Est GFR (Non-Af Amer) POC Glucose (mg/dL) 58 L 55 L Random Glucose Calcium Phosphorus Magnesium Total Bilirubin AST ALT Alkaline Phosphatase Ammonia 19 Lactate Dehydrogenase Total Creatine Kinase CK-MB (CK-2) CK-MB (CK-2) % Troponin I Total Protein Albumin Globulin Albumin/Globulin Ratio Acetaminophen < 10.0 L 04/19/16 04/19/16 04/19/16 18:46 19:47 20:50 WBC RBC Hgb Hct MCV MCH MCHC RDW Plt Count MPV Gran % Lymph % (Auto) [place] % (Auto) Eos % (Auto) Baso % (Auto) Gran # Lymph # [place] # Eos # Baso # Sodium Potassium Chloride Carbon Dioxide Anion Gap BUN Creatinine Est GFR ( Amer) Est GFR (Non-Af Amer) POC Glucose (mg/dL) 61 L 66 70 Random Glucose Calcium Phosphorus Magnesium Total Bilirubin AST ALT Alkaline Phosphatase Ammonia Lactate Dehydrogenase Total Creatine Kinase CK-MB (CK-2) CK-MB (CK-2) % Troponin I Total Protein Albumin Globulin Albumin/Globulin Ratio Acetaminophen 04/19/16 04/19/16 04/19/16 21:10 22:04 23:30 WBC RBC Hgb Hct MCV MCH MCHC RDW Plt Count MPV Gran % Lymph % (Auto) [place] % (Auto) Eos % (Auto) Baso % (Auto) Gran # Lymph # [place] # Eos # Baso # Sodium Potassium Chloride Carbon Dioxide Anion Gap BUN Creatinine Est GFR ( Amer) Est GFR (Non-Af Amer) POC Glucose (mg/dL) 72 79 Random Glucose Calcium Phosphorus Magnesium Total Bilirubin AST ALT Alkaline Phosphatase Ammonia Lactate Dehydrogenase 817 H Total Creatine Kinase 1078 H CK-MB (CK-2) 21.4 H CK-MB (CK-2) % 2.0 L Troponin I 0.02 D Total Protein Albumin Globulin Albumin/Globulin Ratio Acetaminophen 04/20/16 04/20/16 04/20/16 00:03 00:58 01:56 WBC RBC Hgb Hct MCV MCH MCHC RDW Plt Count MPV Gran % Lymph % (Auto) [place] % (Auto) Eos % (Auto) Baso % (Auto) Gran # Lymph # [place] # Eos # Baso # Sodium Potassium Chloride Carbon Dioxide Anion Gap BUN Creatinine Est GFR ( Amer) Est GFR (Non-Af Amer) POC Glucose (mg/dL) 78 89 85 Random Glucose Calcium Phosphorus Magnesium Total Bilirubin AST ALT Alkaline Phosphatase Ammonia Lactate Dehydrogenase Total Creatine Kinase CK-MB (CK-2) CK-MB (CK-2) % Troponin I Total Protein Albumin Globulin Albumin/Globulin Ratio Acetaminophen 04/20/16 04/20/16 04/20/16 03:07 04:33 05:03 WBC RBC Hgb Hct MCV MCH MCHC RDW Plt Count MPV Gran % Lymph % (Auto) [place] % (Auto) Eos % (Auto) Baso % (Auto) Gran # Lymph # [place] # Eos # Baso # Sodium Potassium Chloride Carbon Dioxide Anion Gap BUN Creatinine Est GFR ( Amer) Est GFR (Non-Af Amer) POC Glucose (mg/dL) 68 127 H 91 Random Glucose Calcium Phosphorus Magnesium Total Bilirubin AST ALT Alkaline Phosphatase Ammonia Lactate Dehydrogenase Total Creatine Kinase CK-MB (CK-2) CK-MB (CK-2) % Troponin I Total Protein Albumin Globulin Albumin/Globulin Ratio Acetaminophen 04/20/16 04/20/16 04/20/16 05:30 05:57 07:00 WBC RBC Hgb Hct MCV MCH MCHC RDW Plt Count MPV Gran % Lymph % (Auto) [place] % (Auto) Eos % (Auto) Baso % (Auto) Gran # Lymph # [place] # Eos # Baso # Sodium 140 Potassium 4.0 Chloride 101 Carbon Dioxide 25 Anion Gap 18 BUN 65 H Creatinine 9.0 H* Est GFR ( Amer) 8 Est GFR (Non-Af Amer) 6 POC Glucose (mg/dL) 104 Random Glucose 91 Calcium 6.5 L* Phosphorus 7.8 H Magnesium 2.0 Total Bilirubin 1.2 AST 54 ALT 41 Alkaline Phosphatase 220 H Ammonia Lactate Dehydrogenase 826 H Total Creatine Kinase 1031 H CK-MB (CK-2) 17.8 H CK-MB (CK-2) % 1.7 L Troponin I < 0.01 D Total Protein 4.8 L Albumin 2.0 L Globulin 2.8 Albumin/Globulin Ratio 0.7 L Acetaminophen 04/20/16 10:20 WBC 9.2 D RBC 4.18 Hgb 12.3 L Hct 37.9 L MCV 90.7 MCH 29.4 MCHC 32.5 RDW 15.3 H Plt Count 111 L MPV 11.5 H Gran % 82.5 H Lymph % (Auto) 4.5 L [place] % (Auto) 11.9 H Eos % (Auto) 0.9 L Baso % (Auto) 0.2 Gran # 7.58 H Lymph # 0.4 L [place] # 1.1 H Eos # 0.1 Baso # 0.02 Sodium Potassium Chloride Carbon Dioxide Anion Gap BUN Creatinine Est GFR ( Amer) Est GFR (Non-Af Amer) POC Glucose (mg/dL) Random Glucose Calcium Phosphorus Magnesium Total Bilirubin AST ALT Alkaline Phosphatase Ammonia Lactate Dehydrogenase Total Creatine Kinase CK-MB (CK-2) CK-MB (CK-2) % Troponin I Total Protein Albumin Globulin Albumin/Globulin Ratio Acetaminophen Attending/Attestation - Attestation I have personally seen and examined this patient.: Yes I have fully participated in the care of the patient.: Yes I have reviewed all pertinent clinical information: Yes Notes (Text): 04/20/16 12:17 Patient was seen and examined with territory sales manager medical .Agreed with resident assessment and plan. 50 y/o with PMH of CAD, SP CABAG,alcohol abuse, Drug abuse, Chronic liver disease , ascites ESRD ( on HD , , and Monday), was admitted with change of mental status, confusion, unresponsiveness, hypothermia and hypotension, was given Narcain by ER, more awake now but still confused, etiology of change of mental status is mutifactorial due to opiod abuse, hypothermia, sepsis can not be ruled out.Patient is also hypoxic, EKG in ER showed Junctional rythm likely due to hypothermia,CT head was negative. Patient will be admitted to ICU,agreed with broad spectrum antibiotics, will repeat EKG, will get serial troponin, will get cardiology and Nephrology consult.We will also watch for alcohol withdrawal. Prognosis is guarded due to non compliance and ongoing alcohol and drug abuse.
--- NOTE | 2016-04-19 17:03 | CARD ---
APPROVED REPORT EKG Measurement Heart [id number] <Conclusion> Accelerated Junctional rhythm with fusion complexes Low voltage QRS T wave abnormality, consider anterior ischemia vs artifacts Abnormal ECG
[2016-04-19 21:48] LABS: TROPONIN I 0.02 ng/mL
[2016-04-19] MEDS ORDERED: Influenza Vaccine 45 MCG/0.5 ml IM ONE (22:16)
[2016-04-19] MEDS ORDERED: Pneumococcal 23-Valent Vaccine IM ONE (22:16)
[2016-04-20] MEDS ORDERED: Dextrose 50% SYRINGE Inj (50 ml) IVP ONE ×2 (03:15→23:25)
[2016-04-20 07:21] LABS: TROPONIN I < 0.01 ng/mL
[2016-04-20 08:18] LABS: PHOSPHOROUS 7.8 mg/dL (2.5-4.5)
[2016-04-20 10:12] LABS: ALB/GLOB RATIO 0.7 (1.1-1.8); BILIRUBIN,TOTAL 1.2 mg/dL (0.2-1.3); TOTAL PROTEIN 4.8 g/dL (5.8-8.3)
[2016-04-20 10:17] LABS: CALCIUM 6.5 mg/dL (8.4-10.5)
[2016-04-20 10:27] LABS: ADD MANUAL DIFF? NO
[2016-04-20 10:33] LABS: BASO # 0.02 K/mm3 (0.0-2.0); BASO % 0.2 % (0.0-3.0); EOS # 0.1 (0.0-0.7); EOS % 0.9 % (1.5-5.0); GRAN # 7.58 (1.4-6.5); GRAN % 82.5 % (50.0-68.0); HEMATOCRIT 37.9 % (42.0-52.0); LYMPH # 0.4 (1.2-3.4); LYMPH % 4.5 % (22.0-35.0); MEAN CELL VOLUME 90.7 fL (80.0-105.0); MEAN CORPUSCULAR HEMOGLOBIN 29.4 pg (25.0-35.0); MEAN CORPUSCULAR HGB CONC 32.5 g/dl (31.0-37.0); MEAN PLATELET VOLUME 11.5 fl (7.0-11.0); MONO # 1.1 (0.1-0.6); MONO % 11.9 % (1.0-6.0); PLATELET COUNT 111 10^3/uL (120.0-450.0); RED CELL DISTRIBUTION WIDTH 15.3 % (11.5-14.5); WHITE BLOOD COUNT 9.2 10^3/ul (4.5-11.0)
--- NOTE | 2016-04-20 11:13 | RAD ---
HISTORY: congestion fu COMPARISON: 04/19/2016 FINDINGS: LUNGS: No active pulmonary disease. PLEURA: Small bilateral pleural effusions. CARDIOVASCULAR: Normal. OSSEOUS STRUCTURES: No significant abnormalities. VISUALIZED UPPER ABDOMEN: Normal. OTHER FINDINGS: Right internal jugular dialysis catheter terminates in the right atrium IMPRESSION: Small pleural effusions
--- NOTE | 2016-04-20 12:37 | CP.PCM.PN ---
<Foster Santoyo - Last Filed: 04/20/16 12:34> Subjective - Date & Time of Evaluation Date of Evaluation: 04/20/16 Time of Evaluation: 12:34 - Subjective Subjective: Medicine PGY1 - GI service Patient seen and examined at bedside this morning. No acute events overnight per nursing staff. Patient currently receiving hemodialysis, tolerating well; 12point ROS limited due to patient status. Objective - Vital Signs/Intake and Output Vital Signs (last 24 hours): Temp Pulse Resp BP Pulse Ox 98.8 F 112 H 17 128/97 H 78 L 04/20/16 12:00 04/20/16 12:15 04/20/16 12:15 04/20/16 12:15 04/20/16 12:15 Intake and Output: 04/20/16 04/20/16 06:59 18:59 Intake Total 660 Balance 660 - Medications Medications: Current Medications Heparin Sodium (Porcine) (Heparin) 5,000 units SC Q12 SIMON PRN Reason: Protocol Last Admin: 04/20/16 11:36 Dose: 5,000 units Ceftriaxone Sodium (Rocephin 2 Gm Ivpb) 100 mls @ 100 mls/hr IVPB DAILY SIMON PRN Reason: Protocol Last Admin: 04/20/16 11:37 Dose: 100 mls/hr Lactulose (Enulose) 20 gm PO BID SIMON Last Admin: 04/20/16 11:36 Dose: 20 gm Midodrine (Proamatine) 10 mg PO Q12H SIMON Pantoprazole Sodium (Protonix Inj) 40 mg IVP DAILY SIMON Last Admin: 04/20/16 11:36 Dose: 40 mg Rifaximin (Xifaxan) 550 mg PO BID SIMON PRN Reason: Protocol Last Admin: 04/20/16 11:37 Dose: 550 mg - Labs Labs: 04/20/16 10:20 04/20/16 07:00 PT 12.4 Seconds (9.9-11.8) H 04/19/16 12:56 INR 1.15 (0.93-1.08) H 04/19/16 12:56 APTT 27.3 Seconds (23.7-30.8) 04/19/16 12:56 - Constitutional Appears: Unkempt, Older Than Stated Age, Chronically Ill - Head Exam Head Exam: ATRAUMATIC, NORMAL INSPECTION, NORMOCEPHALIC - Eye Exam Eye Exam: EOMI - ENT Exam ENT Exam: Mucous Membranes Dry - Respiratory Exam Respiratory Exam: Decreased Breath Sounds. absent: Rales, Rhonchi, Wheezes - Cardiovascular Exam Cardiovascular Exam: +S1, +S2, Murmur. absent: Gallop, Rubs - GI/Abdominal Exam GI & Abdominal Exam: Soft, Diminished Bowel Sounds. absent: Distended, Firm, Guarding, Rigid, Tenderness, Rebound - Extremities Exam Additional comments: asterixis - Neurological Exam Neurological Exam: Alert, Awake - Skin Skin Exam: Dry, Intact, Warm. absent: Normal Color Assessment and Plan - Assessment and Plan (Free Text) Assessment: 50yo male with history of CAD s/p CABG, chronic Hepatitis C, ESRD on hemodialysis (), polysubstance abuse admitted to ICU with altered mental status 1. Altered mental status 2. Ascites 3. Chronic hepatitis C 4. ESRD on hemodialysis 5. CAD Plan: -Altered mental status may be 2/2 drug abuse, uremia, or hepatic encephalopathy , or multifactorial -Ascites may be cardiac in origin given extensive cardiac history; Echocardiogram pending -No definite diagnosis of cirrhosis on imaging, but he does have thrombocytopenia and chronic hepatitis c -Continue lactulose 20gm BID, titrate to 2-3 bowel movements per day -Continue xifaxan 550mg BID -Recommend empiric treatment for hepatic encephalopathy -ammonia is unremarkable; asterixis on examination -Recommend US guided paracentesis to reevaluate SAAG, TP, and r/o SBP -Paracentesis from 09/30/15 had a SAAG > 1.1 suggestive of portal hypertension -Abdominal US reviewed; bilateral pleural effusions and moderate abdominal ascites; mild hepatosplenomegaly -Continue current medical management as per ICU/primary team Patient seen and case discussed with attending, Dr. Reynolds <[facility] - Last Filed: 04/20/16 21:45> Objective - Vital Signs/Intake and Output Vital Signs (last 24 hours): Temp Pulse Resp BP Pulse Ox 97.8 F 86 22 94/36 L 78 L 04/20/16 20:00 04/20/16 21:03 04/20/16 19:25 04/20/16 21:03 04/20/16 21:03 Intake and Output: 04/20/16 04/21/16 18:59 06:59 Intake Total 220 Output Total 1000 Balance -780 - Medications Medications: Current Medications Albuterol/Ipratropium (Duoneb 3 Mg/0.5 Mg (3 Ml) Ud) 3 ml IH [id number] PRN PRN Reason: Shortness of Breath Calcium Acetate (Phoslo) 667 mg PO WM SIMON Heparin Sodium (Porcine) (Heparin) 5,000 units SC Q12 SIMON PRN Reason: Protocol Last Admin: 04/20/16 21:25 Dose: Not Given Ceftriaxone Sodium (Rocephin 2 Gm Ivpb) 100 mls @ 100 mls/hr IVPB DAILY SIMON PRN Reason: Protocol Last Admin: 04/20/16 11:37 Dose: 100 mls/hr Heparin Sodium/Sodium Chloride (Heparin 21238 Units/250ml 1/2 Normal Saline) 250 mls @ 14.158 mls/hr IV .[id number] PRN; Protocol; 18 UNITS/KG/HR PRN Reason: ADJUST RATE PER PROTOCOL Last Admin: 04/20/16 18:16 Dose: 14.158 mls/hr Propofol (Diprivan) 100 mls @ 2.36 mls/hr IV .Q24H PRN; Protocol; 5 MCG/KG/MIN PRN Reason: TITRATE PER MD ORDER Last Titration: 04/20/16 20:54 Dose: 15 mcg/kg/min Metronidazole (Flagyl) 100 mls @ 100 mls/hr IVPB Q8 SIMON PRN Reason: Protocol Lactulose (Enulose) 20 gm PO BID [facility] Last Admin: 04/20/16 18:14 Dose: Not Given Midodrine (Proamatine) 10 mg PO Q12H [facility] Pantoprazole Sodium (Protonix Inj) 40 mg IVP DAILY [facility] Last Admin: 04/20/16 11:36 Dose: 40 mg Rifaximin (Xifaxan) 550 mg PO BID SIMON PRN Reason: Protocol Last Admin: 04/20/16 18:14 Dose: Not Given - Labs Labs: 04/20/16 10:20 04/20/16 07:00 PT 12.4 Seconds (9.9-11.8) H 04/19/16 12:56 INR 1.15 (0.93-1.08) H 04/19/16 12:56 APTT 27.3 Seconds (23.7-30.8) 04/19/16 12:56 Attending/Attestation - Attestation I have personally seen and examined this patient.: Yes I have fully participated in the care of the patient.: Yes I have reviewed all pertinent clinical information, including history, physical exam and plan: Yes Notes (Text): 04/20/16 21:42 Patient seen and examined at bedside. This is a 50 year old male with h/o CAD s/ p CABG, chronic hepatitis C, ESRD on HD, polysubstance abuse including current heroin use admitted with altered mental status which could be multifactorial due to uremia, HE. Last paracentesis had SAAG > 1.1. Currently not enough fluid for diagnostic tap. ECHO pending which will be useful given extensive cardiac history. Continue lactulose and rifaximin for HE.
[2016-04-20 13:05] LABS: ARTERIAL BLOOD GAS O2 CAPACITY 19.1 mL/dl (16-24); ARTERIAL BLOOD GAS O2 CONTENT 14.6 ML/dl (15-23); ARTERIAL BLOOD GAS PH 7.38 (7.35-7.45); ARTERIAL BLOOD HGB O2 SAT 75.3 % (95.0-98.0); CARBOXYHEMOGLOBIN 0.9 % (0.5-1.5); HHB 23.4 % (0-5); METHEMOGLOBIN 0.3 % (0.0-3.0)
[2016-04-20] MEDS ORDERED: Albuterol-Ipratrop 3 mg / 0.5 (3 ml) UD IH STA (13:12)
--- NOTE | 2016-04-20 14:08 | CON ---
DATE: 04/20/2016 REQUESTING PHYSICIAN: Dr. Irwin REASON FOR CONSULTATION: Abnormal electrocardiogram, hypotension. HISTORY: This is a 50-year-old man who has undergone prior heart surgery, admitted with altered ment al status and hypotension. He was also noted to be hypothermic upon arrival. He has a history of po lysubstance abuse including alcohol, cocaine and heroin as well as chronic renal failure, maintained on hemodialysis. He was found unconscious at the [facility] where he is a resident. Upon arrival, he was noted to be hypothermic. His electrocardiogram showed low voltage and a probable junctional rhythm. Upon arrival, the emergency squad found bags of heroin in his possession. He was given Narcan with some improvement in his mental status. He is currently in the ICU and is arousable, but answers ques tions in unintelligent fashion. The rest of the history is obtained via the chart. He does have a h istory of chronic renal failure, cause unknown. He is maintained on hemodialysis. He has a history of cirrhosis as well. According to the chart, he has undergone prior coronary bypass surgery; nik olivarez, upon review of prior records this appears to be inaccurate. He appears to undergone a prior tricu spid valve replacement with a prosthetic valve. PAST MEDICAL HISTORY: Notable for the problems mentioned above. He has undergone prior paracenteses . MEDICATIONS AT HOME: Unknown. ALLERGIES: According to the chart, he has no reported allergies. CURRENT MEDICATIONS: Include lactulose, subcutaneous heparin, midodrine, Protonix, Rocephin, and rif aximin. SOCIAL HISTORY: As mentioned. FAMILY HISTORY: Unobtainable. REVIEW OF SYSTEMS: Unobtainable. PHYSICAL EXAMINATION: GENERAL: He is a disheveled appearing middle-aged man. VITAL SIGNS: His blood pressure is 82/30 with a pulse of 110 and regular, respirations are 16. He i s currently afebrile with a temperature of 98.8. HEENT: Some temporal wasting is noted. NECK: No JVD noted. CHEST: Bilateral scattered rhonchi are heard. HEART: PMI is in normal position with a harsh systolic murmur at the lower left sternal border. ABDOMEN: Soft, distended, somewhat protuberant. Bowel sounds are present. Hepatomegaly is noted. EXTREMITIES: 1+ leg edema with chronic cellulitic changes noted. SKIN: Warm and dry. PSYCHIATRIC: Unable to assess. NEUROLOGIC: Moving all 4 extremities. Exam otherwise limited due to mental status. DIAGNOSTIC DATA: Potassium is 4.0. BUN and creatinine are 65 and 9.0. White count 9.2, hemoglobin and hematocrit of 12.3 and 37.9 with a platelet count 111,000. Three sets of troponins are negative. Peak CK was 1078 with a negative MB fraction. Chest x-ray reveals a normal cardiac silhouette with post-sternotomy changes. The radiology report is inaccurate in that it reports the presence of a pr osthetic aortic valve. Electrocardiogram reveals probable junctional rhythm with low voltage in all limbs leads. This is fairly unchanged compared to prior tracings. IMPRESSION: 1. Abnormal electrocardiogram, appears likely chronic. Low voltage does not appear significantly ch anged from prior tracings. However, given his history of renal failure, the possibility of pericardi al effusion should be considered, especially in the setting of transient hypotension. 2. 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 3. Chronic renal failure, maintained on hemodialysis. 4. Altered mental status, possibly due to hypothermia although sepsis should be considered. 5. Chronic substance abuse. RECOMMENDATIONS: 1. Broad spectrum antibiotics should be continued. An echocardiogram has been ordered to evaluate h is tricuspid valve LV function and exclude any significant pericardial effusion. 2. Standard GI and DVT prophylaxis should continue. His overall prognosis is somewhat guarded at th is time. Substance abuse counseling should be provided. We will continue to follow and make further recommendations as appropriate. Jose Lai MD cc: [id number] TT: 04/20/2016 14:07:12 Confirmation # [id number] Dictation # [id number]
--- NOTE | 2016-04-20 14:46 | CARD ---
APPROVED REPORT EKG Measurement Heart [id number] <Conclusion> Undetermined rhythm Low voltage QRS ST & T wave abnormality, consider anterior ischemia Prolonged QT Abnormal ECG
--- NOTE | 2016-04-20 14:57 | CP.CCUPN ---
<Adela Foreman - Last Filed: 04/20/16 16:00> CCU Subjective - Physician Review Subjective (Free Text): PGY-1 ICU progress note. Patient seen and examined at bedside in ICU. No acute distress. Nurse reports that overnight his glucose level fell and he was given D50. He had 2 BM overnight. This morning patient is receiving HD at bedside. He did not report chest pain, fever, chills, abd pain, n/v. In the afternoon patient began to complain of SOB. 04/20/16 14:54 CCU Objective - Vital Signs / Intake & Output Vital Signs (Last 4 hours): Vital Signs Temp Pulse Resp BP Pulse Ox 04/20/16 12:15 112 H 17 128/97 H 78 L 04/20/16 12:00 98.8 F 110 H 27 H 95/43 L 89 L 04/20/16 11:45 102 H 37 H 111/52 L 88 L 04/20/16 11:30 121 H 34 H 97/52 L 83 L 04/20/16 11:18 122 H 46 H 103/43 L 86 L 04/20/16 11:00 98 H 29 H 89 L 04/20/16 10:55 108 H 33 H 82/28 L 88 L Intake and Output (Last 8hrs): Intake & Output 04/19/16 04/20/16 04/20/16 22:59 06:59 14:59 Intake Total 1969 660 Output Total 0 Balance 1969 660 Weight 79.2 kg 78.653 kg Intake: IV 300 RIGHT FOREARM 300 Oral 120 360 Other 1850 Output: Urine 0 Urine, Voided 0 Other: # Bowel Movements 0 2 - Physical Exam Head: Positive for: Atraumatic, Normocephalic Pupils: Positive for: Sluggish Extroacular Muscles: Positive for: EOMI Conjunctiva: Positive for: Normal Mouth: Positive for: Dry Respiratory/Chest: Positive for: Rhonchi, Tachypneic. Negative for: Accessory Muscle Use Cardiovascular: Positive for: Regular Rate and Rhythm, Normal S1, S2. Negative for: Murmurs Abdomen: Positive for: Distention, Normal Bowel Sounds. Negative for: Tenderness, Peritoneal Signs Upper Extremity: Positive for: Normal Inspection, Other (tremors of upper and lower extremties ). Negative for: Cyanosis, Edema Lower Extremity: Positive for: Normal Inspection. Negative for: Edema, CALF TENDERNESS Neurological: Positive for: CN II-XII Intact. Negative for: Speech Normal Skin: Positive for: Warm, Dry, Normal Color. Negative for: Rashes Psychiatric: Positive for: Alert. Negative for: Oriented x 3 - Medications Active Medications: Active Medications Generic Name Dose Route Start Last Admin Trade Name Freq PRN Reason Stop Dose Admin Albuterol/Ipratropium 3 ml 04/20/16 13:13 Duoneb 3 Mg/0.5 Mg (3 Ml) Ud IH [id number] PRN Shortness of Breath Heparin Sodium (Porcine) 5,000 units 04/20/16 10:00 04/20/16 11:36 Heparin SC 5,000 units Q12 SIMON Administration Protocol Ceftriaxone Sodium 100 mls @ 100 mls/hr 04/19/16 16:45 04/20/16 11:37 Rocephin 2 Gm Ivpb IVPB 100 mls/hr DAILY SIMON Administration Protocol Lactulose 20 gm 04/19/16 18:00 04/20/16 11:36 Enulose PO 20 gm BID SIMON Administration Midodrine 10 mg 04/20/16 22:00 Proamatine PO Q12H SIMON Pantoprazole Sodium 40 mg 04/20/16 10:00 04/20/16 11:36 Protonix Inj IVP 40 mg DAILY SIMON Administration Rifaximin 550 mg 04/19/16 18:00 04/20/16 11:37 Xifaxan PO 550 mg BID SIMON Administration Protocol - Patient Studies Lab Studies: Lab Studies 04/20/16 04/20/16 04/20/16 Range/Units 13:02 10:20 07:00 WBC 9.2 D (4.5-11.0) 10^3/ul RBC 4.18 (3.5-6.1) 10^6/uL Hgb 12.3 L (14.0-18.0) gm/dL Hct 37.9 L (42.0-52.0) % MCV 90.7 (80.0-105.0) fL MCH 29.4 (25.0-35.0) pg MCHC 32.5 (31.0-37.0) g/dl RDW 15.3 H (11.5-14.5) % Plt Count 111 L (120.0-450.0) 10^3/uL MPV 11.5 H (7.0-11.0) fl Gran % 82.5 H (50.0-68.0) % Lymph % (Auto) 4.5 L (22.0-35.0) % Ralls % (Auto) 11.9 H (1.0-6.0) % Eos % (Auto) 0.9 L (1.5-5.0) % Baso % (Auto) 0.2 (0.0-3.0) % Gran # 7.58 H (1.4-6.5) Lymph # 0.4 L (1.2-3.4) Ralls # 1.1 H (0.1-0.6) Eos # 0.1 (0.0-0.7) Baso # 0.02 (0.0-2.0) K/mm3 pCO2 44 (35-45) mm/Hg pO2 44.0 L* (80-100) mm/Hg HCO3 26.0 (21-28) mmol/L ABG pH 7.38 (7.35-7.45) ABG Total CO2 27.4 (22-28) mmol.L ABG O2 Saturation 76.3 L (95-98) % ABG O2 Content 14.6 L (15-23) ML/dl ABG Base Excess 0.5 (-2.0-3.0) mmol/L ABG Hemoglobin 13.8 (11.7-17.4) g/dL ABG Carboxyhemoglobin 0.9 (0.5-1.5) % POC ABG HHb (Measured) 23.4 H (0-5) % ABG Methemoglobin 0.3 (0.0-3.0) % ABG O2 Capacity 19.1 (16-24) mL/dl Hgb O2 Saturation 75.3 L (95.0-98.0) % FiO2 100.0 % Sodium 140 (132-148) mmol/L Potassium 4.0 (3.6-5.0) mmol/L Chloride 101 (98-107) mmol/L Carbon Dioxide 25 (21-33) mmol/L Anion Gap 18 (10-20) BUN 65 H (7-21) mg/dL Creatinine 9.0 H* (0.5-1.4) mg/dL Est GFR ( Amer) 8 Est GFR (Non-Af Amer) 6 POC Glucose (mg/dL) (65-110) mg/dL Random Glucose 91 (70-110) mg/dL Calcium 6.5 L* (8.4-10.5) mg/dL Phosphorus 7.8 H (2.5-4.5) mg/dL Magnesium 2.0 (1.7-2.2) mg/dL Total Bilirubin 1.2 (0.2-1.3) mg/dL AST 54 (15-59) U/L ALT 41 (7-56) U/L Alkaline Phosphatase 220 H (38-133) U/L Ammonia (9-33) umol/L Lactate Dehydrogenase (333-699) U/L Total Creatine Kinase (35-230) U/L CK-MB (CK-2) (0.0-3.6) NG/ML CK-MB (CK-2) % (2.5-3.0) % Troponin I ng/mL Total Protein 4.8 L (5.8-8.3) g/dL Albumin 2.0 L (3.0-4.8) g/dL Globulin 2.8 gm/dL Albumin/Globulin Ratio 0.7 L (1.1-1.8) Acetaminophen (10.0-20.0) ug/ml 04/20/16 04/20/16 04/20/16 Range/Units 05:57 05:30 05:03 WBC (4.5-11.0) 10^3/ul RBC (3.5-6.1) 10^6/uL Hgb (14.0-18.0) gm/dL Hct (42.0-52.0) % MCV (80.0-105.0) fL MCH (25.0-35.0) pg MCHC (31.0-37.0) g/dl RDW (11.5-14.5) % Plt Count (120.0-450.0) 10^3/uL MPV (7.0-11.0) fl Gran % (50.0-68.0) % Lymph % (Auto) (22.0-35.0) % Ralls % (Auto) (1.0-6.0) % Eos % (Auto) (1.5-5.0) % Baso % (Auto) (0.0-3.0) % Gran # (1.4-6.5) Lymph # (1.2-3.4) Ralls # (0.1-0.6) Eos # (0.0-0.7) Baso # (0.0-2.0) K/mm3 pCO2 (35-45) mm/Hg pO2 (80-100) mm/Hg HCO3 (21-28) mmol/L ABG pH (7.35-7.45) ABG Total CO2 (22-28) mmol.L ABG O2 Saturation (95-98) % ABG O2 Content (15-23) ML/dl ABG Base Excess (-2.0-3.0) mmol/L ABG Hemoglobin (11.7-17.4) g/dL ABG Carboxyhemoglobin (0.5-1.5) % POC ABG HHb (Measured) (0-5) % ABG Methemoglobin (0.0-3.0) % ABG O2 Capacity (16-24) mL/dl Hgb O2 Saturation (95.0-98.0) % FiO2 % Sodium (132-148) mmol/L Potassium (3.6-5.0) mmol/L Chloride (98-107) mmol/L Carbon Dioxide (21-33) mmol/L Anion Gap (10-20) BUN (7-21) mg/dL Creatinine (0.5-1.4) mg/dL Est GFR ( Amer) Est GFR (Non-Af Amer) POC Glucose (mg/dL) 104 91 (65-110) mg/dL Random Glucose (70-110) mg/dL Calcium (8.4-10.5) mg/dL Phosphorus (2.5-4.5) mg/dL Magnesium (1.7-2.2) mg/dL Total Bilirubin (0.2-1.3) mg/dL AST (15-59) U/L ALT (7-56) U/L Alkaline Phosphatase (38-133) U/L Ammonia (9-33) umol/L Lactate Dehydrogenase 826 H (333-699) U/L Total Creatine Kinase 1031 H (35-230) U/L CK-MB (CK-2) 17.8 H (0.0-3.6) NG/ML CK-MB (CK-2) % 1.7 L (2.5-3.0) % Troponin I < 0.01 D ng/mL Total Protein (5.8-8.3) g/dL Albumin (3.0-4.8) g/dL Globulin gm/dL Albumin/Globulin Ratio (1.1-1.8) Acetaminophen (10.0-20.0) ug/ml 04/20/16 04/20/16 04/20/16 Range/Units 04:33 03:07 01:56 WBC (4.5-11.0) 10^3/ul RBC (3.5-6.1) 10^6/uL Hgb (14.0-18.0) gm/dL Hct (42.0-52.0) % MCV (80.0-105.0) fL MCH (25.0-35.0) pg MCHC (31.0-37.0) g/dl RDW (11.5-14.5) % Plt Count (120.0-450.0) 10^3/uL MPV (7.0-11.0) fl Gran % (50.0-68.0) % Lymph % (Auto) (22.0-35.0) % Ralls % (Auto) (1.0-6.0) % Eos % (Auto) (1.5-5.0) % Baso % (Auto) (0.0-3.0) % Gran # (1.4-6.5) Lymph # (1.2-3.4) Ralls # (0.1-0.6) Eos # (0.0-0.7) Baso # (0.0-2.0) K/mm3 pCO2 (35-45) mm/Hg pO2 (80-100) mm/Hg HCO3 (21-28) mmol/L ABG pH (7.35-7.45) ABG Total CO2 (22-28) mmol.L ABG O2 Saturation (95-98) % ABG O2 Content (15-23) ML/dl ABG Base Excess (-2.0-3.0) mmol/L ABG Hemoglobin (11.7-17.4) g/dL ABG Carboxyhemoglobin (0.5-1.5) % POC ABG HHb (Measured) (0-5) % ABG Methemoglobin (0.0-3.0) % ABG O2 Capacity (16-24) mL/dl Hgb O2 Saturation (95.0-98.0) % FiO2 % Sodium (132-148) mmol/L Potassium (3.6-5.0) mmol/L Chloride (98-107) mmol/L Carbon Dioxide (21-33) mmol/L Anion Gap (10-20) BUN (7-21) mg/dL Creatinine (0.5-1.4) mg/dL Est GFR ( Amer) Est GFR (Non-Af Amer) POC Glucose (mg/dL) 127 H 68 85 (65-110) mg/dL Random Glucose (70-110) mg/dL Calcium (8.4-10.5) mg/dL Phosphorus (2.5-4.5) mg/dL Magnesium (1.7-2.2) mg/dL Total Bilirubin (0.2-1.3) mg/dL AST (15-59) U/L ALT (7-56) U/L Alkaline Phosphatase (38-133) U/L Ammonia (9-33) umol/L Lactate Dehydrogenase (333-699) U/L Total Creatine Kinase (35-230) U/L CK-MB (CK-2) (0.0-3.6) NG/ML CK-MB (CK-2) % (2.5-3.0) % Troponin I ng/mL Total Protein (5.8-8.3) g/dL Albumin (3.0-4.8) g/dL Globulin gm/dL Albumin/Globulin Ratio (1.1-1.8) Acetaminophen (10.0-20.0) ug/ml 04/20/16 04/20/16 04/19/16 Range/Units 00:58 00:03 23:30 WBC (4.5-11.0) 10^3/ul RBC (3.5-6.1) 10^6/uL Hgb (14.0-18.0) gm/dL Hct (42.0-52.0) % MCV (80.0-105.0) fL MCH (25.0-35.0) pg MCHC (31.0-37.0) g/dl RDW (11.5-14.5) % Plt Count (120.0-450.0) 10^3/uL MPV (7.0-11.0) fl Gran % (50.0-68.0) % Lymph % (Auto) (22.0-35.0) % Ralls % (Auto) (1.0-6.0) % Eos % (Auto) (1.5-5.0) % Baso % (Auto) (0.0-3.0) % Gran # (1.4-6.5) Lymph # (1.2-3.4) Ralls # (0.1-0.6) Eos # (0.0-0.7) Baso # (0.0-2.0) K/mm3 pCO2 (35-45) mm/Hg pO2 (80-100) mm/Hg HCO3 (21-28) mmol/L ABG pH (7.35-7.45) ABG Total CO2 (22-28) mmol.L ABG O2 Saturation (95-98) % ABG O2 Content (15-23) ML/dl ABG Base Excess (-2.0-3.0) mmol/L ABG Hemoglobin (11.7-17.4) g/dL ABG Carboxyhemoglobin (0.5-1.5) % POC ABG HHb (Measured) (0-5) % ABG Methemoglobin (0.0-3.0) % ABG O2 Capacity (16-24) mL/dl Hgb O2 Saturation (95.0-98.0) % FiO2 % Sodium (132-148) mmol/L Potassium (3.6-5.0) mmol/L Chloride (98-107) mmol/L Carbon Dioxide (21-33) mmol/L Anion Gap (10-20) BUN (7-21) mg/dL Creatinine (0.5-1.4) mg/dL Est GFR ( Amer) Est GFR (Non-Af Amer) POC Glucose (mg/dL) 89 78 79 (65-110) mg/dL Random Glucose (70-110) mg/dL Calcium (8.4-10.5) mg/dL Phosphorus (2.5-4.5) mg/dL Magnesium (1.7-2.2) mg/dL Total Bilirubin (0.2-1.3) mg/dL AST (15-59) U/L ALT (7-56) U/L Alkaline Phosphatase (38-133) U/L Ammonia (9-33) umol/L Lactate Dehydrogenase (333-699) U/L Total Creatine Kinase (35-230) U/L CK-MB (CK-2) (0.0-3.6) NG/ML CK-MB (CK-2) % (2.5-3.0) % Troponin I ng/mL Total Protein (5.8-8.3) g/dL Albumin (3.0-4.8) g/dL Globulin gm/dL Albumin/Globulin Ratio (1.1-1.8) Acetaminophen (10.0-20.0) ug/ml 04/19/16 04/19/16 04/19/16 Range/Units 22:04 21:10 20:50 WBC (4.5-11.0) 10^3/ul RBC (3.5-6.1) 10^6/uL Hgb (14.0-18.0) gm/dL Hct (42.0-52.0) % MCV (80.0-105.0) fL MCH (25.0-35.0) pg MCHC (31.0-37.0) g/dl RDW (11.5-14.5) % Plt Count (120.0-450.0) 10^3/uL MPV (7.0-11.0) fl Gran % (50.0-68.0) % Lymph % (Auto) (22.0-35.0) % Ralls % (Auto) (1.0-6.0) % Eos % (Auto) (1.5-5.0) % Baso % (Auto) (0.0-3.0) % Gran # (1.4-6.5) Lymph # (1.2-3.4) Ralls # (0.1-0.6) Eos # (0.0-0.7) Baso # (0.0-2.0) K/mm3 pCO2 (35-45) mm/Hg pO2 (80-100) mm/Hg HCO3 (21-28) mmol/L ABG pH (7.35-7.45) ABG Total CO2 (22-28) mmol.L ABG O2 Saturation (95-98) % ABG O2 Content (15-23) ML/dl ABG Base Excess (-2.0-3.0) mmol/L ABG Hemoglobin (11.7-17.4) g/dL ABG Carboxyhemoglobin (0.5-1.5) % POC ABG HHb (Measured) (0-5) % ABG Methemoglobin (0.0-3.0) % ABG O2 Capacity (16-24) mL/dl Hgb O2 Saturation (95.0-98.0) % FiO2 % Sodium (132-148) mmol/L Potassium (3.6-5.0) mmol/L Chloride (98-107) mmol/L Carbon Dioxide (21-33) mmol/L Anion Gap (10-20) BUN (7-21) mg/dL Creatinine (0.5-1.4) mg/dL Est GFR ( Amer) Est GFR (Non-Af Amer) POC Glucose (mg/dL) 72 70 (65-110) mg/dL Random Glucose (70-110) mg/dL Calcium (8.4-10.5) mg/dL Phosphorus (2.5-4.5) mg/dL Magnesium (1.7-2.2) mg/dL Total Bilirubin (0.2-1.3) mg/dL AST (15-59) U/L ALT (7-56) U/L Alkaline Phosphatase (38-133) U/L Ammonia (9-33) umol/L Lactate Dehydrogenase 817 H (333-699) U/L Total Creatine Kinase 1078 H (35-230) U/L CK-MB (CK-2) 21.4 H (0.0-3.6) NG/ML CK-MB (CK-2) % 2.0 L (2.5-3.0) % Troponin I 0.02 D ng/mL Total Protein (5.8-8.3) g/dL Albumin (3.0-4.8) g/dL Globulin gm/dL Albumin/Globulin Ratio (1.1-1.8) Acetaminophen (10.0-20.0) ug/ml 04/19/16 04/19/16 04/19/16 Range/Units 19:47 18:46 18:00 WBC (4.5-11.0) 10^3/ul RBC (3.5-6.1) 10^6/uL Hgb (14.0-18.0) gm/dL Hct (42.0-52.0) % MCV (80.0-105.0) fL MCH (25.0-35.0) pg MCHC (31.0-37.0) g/dl RDW (11.5-14.5) % Plt Count (120.0-450.0) 10^3/uL MPV (7.0-11.0) fl Gran % (50.0-68.0) % Lymph % (Auto) (22.0-35.0) % Ralls % (Auto) (1.0-6.0) % Eos % (Auto) (1.5-5.0) % Baso % (Auto) (0.0-3.0) % Gran # (1.4-6.5) Lymph # (1.2-3.4) Ralls # (0.1-0.6) Eos # (0.0-0.7) Baso # (0.0-2.0) K/mm3 pCO2 (35-45) mm/Hg pO2 (80-100) mm/Hg HCO3 (21-28) mmol/L ABG pH (7.35-7.45) ABG Total CO2 (22-28) mmol.L ABG O2 Saturation (95-98) % ABG O2 Content (15-23) ML/dl ABG Base Excess (-2.0-3.0) mmol/L ABG Hemoglobin (11.7-17.4) g/dL ABG Carboxyhemoglobin (0.5-1.5) % POC ABG HHb (Measured) (0-5) % ABG Methemoglobin (0.0-3.0) % ABG O2 Capacity (16-24) mL/dl Hgb O2 Saturation (95.0-98.0) % FiO2 % Sodium (132-148) mmol/L Potassium (3.6-5.0) mmol/L Chloride (98-107) mmol/L Carbon Dioxide (21-33) mmol/L Anion Gap (10-20) BUN (7-21) mg/dL Creatinine (0.5-1.4) mg/dL Est GFR ( Amer) Est GFR (Non-Af Amer) POC Glucose (mg/dL) 66 61 L (65-110) mg/dL Random Glucose (70-110) mg/dL Calcium (8.4-10.5) mg/dL Phosphorus (2.5-4.5) mg/dL Magnesium (1.7-2.2) mg/dL Total Bilirubin (0.2-1.3) mg/dL AST (15-59) U/L ALT (7-56) U/L Alkaline Phosphatase (38-133) U/L Ammonia 19 (9-33) umol/L Lactate Dehydrogenase (333-699) U/L Total Creatine Kinase (35-230) U/L CK-MB (CK-2) (0.0-3.6) NG/ML CK-MB (CK-2) % (2.5-3.0) % Troponin I ng/mL Total Protein (5.8-8.3) g/dL Albumin (3.0-4.8) g/dL Globulin gm/dL Albumin/Globulin Ratio (1.1-1.8) Acetaminophen < 10.0 L (10.0-20.0) ug/ml 04/19/16 04/19/16 Range/Units 17:52 16:45 WBC (4.5-11.0) 10^3/ul RBC (3.5-6.1) 10^6/uL Hgb (14.0-18.0) gm/dL Hct (42.0-52.0) % MCV (80.0-105.0) fL MCH (25.0-35.0) pg MCHC (31.0-37.0) g/dl RDW (11.5-14.5) % Plt Count (120.0-450.0) 10^3/uL MPV (7.0-11.0) fl Gran % (50.0-68.0) % Lymph % (Auto) (22.0-35.0) % Ralls % (Auto) (1.0-6.0) % Eos % (Auto) (1.5-5.0) % Baso % (Auto) (0.0-3.0) % Gran # (1.4-6.5) Lymph # (1.2-3.4) Ralls # (0.1-0.6) Eos # (0.0-0.7) Baso # (0.0-2.0) K/mm3 pCO2 (35-45) mm/Hg pO2 (80-100) mm/Hg HCO3 (21-28) mmol/L ABG pH (7.35-7.45) ABG Total CO2 (22-28) mmol.L ABG O2 Saturation (95-98) % ABG O2 Content (15-23) ML/dl ABG Base Excess (-2.0-3.0) mmol/L ABG Hemoglobin (11.7-17.4) g/dL ABG Carboxyhemoglobin (0.5-1.5) % POC ABG HHb (Measured) (0-5) % ABG Methemoglobin (0.0-3.0) % ABG O2 Capacity (16-24) mL/dl Hgb O2 Saturation (95.0-98.0) % FiO2 % Sodium (132-148) mmol/L Potassium (3.6-5.0) mmol/L Chloride (98-107) mmol/L Carbon Dioxide (21-33) mmol/L Anion Gap (10-20) BUN (7-21) mg/dL Creatinine (0.5-1.4) mg/dL Est GFR ( Amer) Est GFR (Non-Af Amer) POC Glucose (mg/dL) 55 L 58 L (65-110) mg/dL Random Glucose (70-110) mg/dL Calcium (8.4-10.5) mg/dL Phosphorus (2.5-4.5) mg/dL Magnesium (1.7-2.2) mg/dL Total Bilirubin (0.2-1.3) mg/dL AST (15-59) U/L ALT (7-56) U/L Alkaline Phosphatase (38-133) U/L Ammonia (9-33) umol/L Lactate Dehydrogenase (333-699) U/L Total Creatine Kinase (35-230) U/L CK-MB (CK-2) (0.0-3.6) NG/ML CK-MB (CK-2) % (2.5-3.0) % Troponin I ng/mL Total Protein (5.8-8.3) g/dL Albumin (3.0-4.8) g/dL Globulin gm/dL Albumin/Globulin Ratio (1.1-1.8) Acetaminophen (10.0-20.0) ug/ml Laboratory Results - last 24 hr 04/19/16 04/19/16 04/19/16 16:45 17:52 18:00 WBC RBC Hgb Hct MCV MCH MCHC RDW Plt Count MPV Gran % Lymph % (Auto) Ralls % (Auto) Eos % (Auto) Baso % (Auto) Gran # Lymph # Ralls # Eos # Baso # pCO2 pO2 HCO3 ABG pH ABG Total CO2 ABG O2 Saturation ABG O2 Content ABG Base Excess ABG Hemoglobin ABG Carboxyhemoglobin POC ABG HHb (Measured) ABG Methemoglobin ABG O2 Capacity Hgb O2 Saturation FiO2 Sodium Potassium Chloride Carbon Dioxide Anion Gap BUN Creatinine Est GFR ( Amer) Est GFR (Non-Af Amer) POC Glucose (mg/dL) 58 L 55 L Random Glucose Calcium Phosphorus Magnesium Total Bilirubin AST ALT Alkaline Phosphatase Ammonia 19 Lactate Dehydrogenase Total Creatine Kinase CK-MB (CK-2) CK-MB (CK-2) % Troponin I Total Protein Albumin Globulin Albumin/Globulin Ratio Acetaminophen < 10.0 L 04/19/16 04/19/16 04/19/16 18:46 19:47 20:50 WBC RBC Hgb Hct MCV MCH MCHC RDW Plt Count MPV Gran % Lymph % (Auto) Ralls % (Auto) Eos % (Auto) Baso % (Auto) Gran # Lymph # Ralls # Eos # Baso # pCO2 pO2 HCO3 ABG pH ABG Total CO2 ABG O2 Saturation ABG O2 Content ABG Base Excess ABG Hemoglobin ABG Carboxyhemoglobin POC ABG HHb (Measured) ABG Methemoglobin ABG O2 Capacity Hgb O2 Saturation FiO2 Sodium Potassium Chloride Carbon Dioxide Anion Gap BUN Creatinine Est GFR ( Amer) Est GFR (Non-Af Amer) POC Glucose (mg/dL) 61 L 66 70 Random Glucose Calcium Phosphorus Magnesium Total Bilirubin AST ALT Alkaline Phosphatase Ammonia Lactate Dehydrogenase Total Creatine Kinase CK-MB (CK-2) CK-MB (CK-2) % Troponin I Total Protein Albumin Globulin Albumin/Globulin Ratio Acetaminophen 04/19/16 04/19/16 04/19/16 21:10 22:04 23:30 WBC RBC Hgb Hct MCV MCH MCHC RDW Plt Count MPV Gran % Lymph % (Auto) Ralls % (Auto) Eos % (Auto) Baso % (Auto) Gran # Lymph # Ralls # Eos # Baso # pCO2 pO2 HCO3 ABG pH ABG Total CO2 ABG O2 Saturation ABG O2 Content ABG Base Excess ABG Hemoglobin ABG Carboxyhemoglobin POC ABG HHb (Measured) ABG Methemoglobin ABG O2 Capacity Hgb O2 Saturation FiO2 Sodium Potassium Chloride Carbon Dioxide Anion Gap BUN Creatinine Est GFR ( Amer) Est GFR (Non-Af Amer) POC Glucose (mg/dL) 72 79 Random Glucose Calcium Phosphorus Magnesium Total Bilirubin AST ALT Alkaline Phosphatase Ammonia Lactate Dehydrogenase 817 H Total Creatine Kinase 1078 H CK-MB (CK-2) 21.4 H CK-MB (CK-2) % 2.0 L Troponin I 0.02 D Total Protein Albumin Globulin Albumin/Globulin Ratio Acetaminophen 04/20/16 04/20/16 04/20/16 00:03 00:58 01:56 WBC RBC Hgb Hct MCV MCH MCHC RDW Plt Count MPV Gran % Lymph % (Auto) Ralls % (Auto) Eos % (Auto) Baso % (Auto) Gran # Lymph # Ralls # Eos # Baso # pCO2 pO2 HCO3 ABG pH ABG Total CO2 ABG O2 Saturation ABG O2 Content ABG Base Excess ABG Hemoglobin ABG Carboxyhemoglobin POC ABG HHb (Measured) ABG Methemoglobin ABG O2 Capacity Hgb O2 Saturation FiO2 Sodium Potassium Chloride Carbon Dioxide Anion Gap BUN Creatinine Est GFR ( Amer) Est GFR (Non-Af Amer) POC Glucose (mg/dL) 78 89 85 Random Glucose Calcium Phosphorus Magnesium Total Bilirubin AST ALT Alkaline Phosphatase Ammonia Lactate Dehydrogenase Total Creatine Kinase CK-MB (CK-2) CK-MB (CK-2) % Troponin I Total Protein Albumin Globulin Albumin/Globulin Ratio Acetaminophen 04/20/16 04/20/16 04/20/16 03:07 04:33 05:03 WBC RBC Hgb Hct MCV MCH MCHC RDW Plt Count MPV Gran % Lymph % (Auto) Ralls % (Auto) Eos % (Auto) Baso % (Auto) Gran # Lymph # Ralls # Eos # Baso # pCO2 pO2 HCO3 ABG pH ABG Total CO2 ABG O2 Saturation ABG O2 Content ABG Base Excess ABG Hemoglobin ABG Carboxyhemoglobin POC ABG HHb (Measured) ABG Methemoglobin ABG O2 Capacity Hgb O2 Saturation FiO2 Sodium Potassium Chloride Carbon Dioxide Anion Gap BUN Creatinine Est GFR ( Amer) Est GFR (Non-Af Amer) POC Glucose (mg/dL) 68 127 H 91 Random Glucose Calcium Phosphorus Magnesium Total Bilirubin AST ALT Alkaline Phosphatase Ammonia Lactate Dehydrogenase Total Creatine Kinase CK-MB (CK-2) CK-MB (CK-2) % Troponin I Total Protein Albumin Globulin Albumin/Globulin Ratio Acetaminophen 04/20/16 04/20/16 04/20/16 05:30 05:57 07:00 WBC RBC Hgb Hct MCV MCH MCHC RDW Plt Count MPV Gran % Lymph % (Auto) Ralls % (Auto) Eos % (Auto) Baso % (Auto) Gran # Lymph # Ralls # Eos # Baso # pCO2 pO2 HCO3 ABG pH ABG Total CO2 ABG O2 Saturation ABG O2 Content ABG Base Excess ABG Hemoglobin ABG Carboxyhemoglobin POC ABG HHb (Measured) ABG Methemoglobin ABG O2 Capacity Hgb O2 Saturation FiO2 Sodium 140 Potassium 4.0 Chloride 101 Carbon Dioxide 25 Anion Gap 18 BUN 65 H Creatinine 9.0 H* Est GFR ( Amer) 8 Est GFR (Non-Af Amer) 6 POC Glucose (mg/dL) 104 Random Glucose 91 Calcium 6.5 L* Phosphorus 7.8 H Magnesium 2.0 Total Bilirubin 1.2 AST 54 ALT 41 Alkaline Phosphatase 220 H Ammonia Lactate Dehydrogenase 826 H Total Creatine Kinase 1031 H CK-MB (CK-2) 17.8 H CK-MB (CK-2) % 1.7 L Troponin I < 0.01 D Total Protein 4.8 L Albumin 2.0 L Globulin 2.8 Albumin/Globulin Ratio 0.7 L Acetaminophen 04/20/16 04/20/16 10:20 13:02 WBC 9.2 D RBC 4.18 Hgb 12.3 L Hct 37.9 L MCV 90.7 MCH 29.4 MCHC 32.5 RDW 15.3 H Plt Count 111 L MPV 11.5 H Gran % 82.5 H Lymph % (Auto) 4.5 L Ralls % (Auto) 11.9 H Eos % (Auto) 0.9 L Baso % (Auto) 0.2 Gran # 7.58 H Lymph # 0.4 L Ralls # 1.1 H Eos # 0.1 Baso # 0.02 pCO2 44 pO2 44.0 L* HCO3 26.0 ABG pH 7.38 ABG Total CO2 27.4 ABG O2 Saturation 76.3 L ABG O2 Content 14.6 L ABG Base Excess 0.5 ABG Hemoglobin 13.8 ABG Carboxyhemoglobin 0.9 POC ABG HHb (Measured) 23.4 H ABG Methemoglobin 0.3 ABG O2 Capacity 19.1 Hgb O2 Saturation 75.3 L FiO2 100.0 Sodium Potassium Chloride Carbon Dioxide Anion Gap BUN Creatinine Est GFR ( Amer) Est GFR (Non-Af Amer) POC Glucose (mg/dL) Random Glucose Calcium Phosphorus Magnesium Total Bilirubin AST ALT Alkaline Phosphatase Ammonia Lactate Dehydrogenase Total Creatine Kinase CK-MB (CK-2) CK-MB (CK-2) % Troponin I Total Protein Albumin Globulin Albumin/Globulin Ratio Acetaminophen EKG/Cardiology Studies: Cardiology / EKG Studies 04/19/16 15:16 EKG [ELECTROCARDIOGRAM] Stat Comment: Reason For Exam: ams 04/20/16 09:29 EKG [ELECTROCARDIOGRAM] Stat Comment: Reason For Exam: fu Fingerstick Blood Sugar Results: 104 Critical Care Progress Note - Nutrition Nutrition: Nutrition Category Date Time Status NPO Diet [DIET] Diets 04/19/16 Dinner Ordered Renal Diet [DIET] Diets 04/20/16 Dinner Ordered Assessment/Plan - Assessment and Plan (Free Text) Assessment: 50 yo male with PMH of ESRD on HD (T,TH,S) cirrhosis, hep C, alcohol abuse, and h/o cocaine and heroin use presented with AMS 2/2 drug abuse v. uremia v. hepatic encephalopathy Plan: Neuro -AMS 2/2 drug overdose v. uremia v. hepatic encephalopathy - pt is awake and oriented x2, able to follow simple commends - pt continues to have tremors - drug screen pending - pt demonstrates moderate oropharyngeal dysphagia, was recommended pureed diet with crushed medications - will treat empirically for hepatic encephalopathy - cont to monitor cardio - Low BP - pt states he take midorine BID at home, will start - trops neg x3 - BNP elevated - echo pending - cont to monitor - maintain MAP>65 - cardiology following pulm - cxr shows mild pulm venous congestion and background of COPD - ABG showed low O2 on the rebreather - Saturations in the 80s - will start Bipap - cont supplemental O2 to maintain SaO2>90 - cont to monitor - aspiration precaution, HOB >35 GI - h/o hep c and ascites - abd US showed moderate ascites with mild hepatosplenomegaly and moderate bilateral pleural effusions - repeat total bilirubin is wnl, cont to monitor LFTs - ammonia level is unremarkable - on lactulose and rifaxmine for empiric treatment for hepatic encephalopathy - titrate lactulose to 2-3 BM per day - paracentesis is ordered - ppx antibiotic for SBP - GI following - pureed diet - protonix ppx Renal - ESRD on HD - HD today, 1 liter removed - nephro consult, Dr. Gonzalez - monitor electrolytes, replace as needed endo - glucose ranging between 50- 120 - fingerstick q6h - start PO diet, monitor glucose ID - afebrile without leukocytosis - hypothermia (91.9) has resolved - blood cx neg after 24 hours - urine cultures pending - procalcitonin mildly elevated - lactate in wnl d/w attending <Gonsalo RILEY,Kimberly H - Last Filed: 04/20/16 17:24> CCU Objective - Vital Signs / Intake & Output Vital Signs (Last 4 hours): Vital Signs Temp Pulse Resp BP Pulse Ox 04/20/16 17:00 103 H 39 H 84 L 04/20/16 16:29 90 04/20/16 16:18 107 H 40 H 80 L 04/20/16 16:00 97.4 F L 103 H 43 H 152/92 H 85 L 04/20/16 15:40 104 H 35 H 135/99 H 83 L 04/20/16 15:01 119 H 39 H 04/20/16 15:00 112 H 39 H 80 L 04/20/16 14:31 109 H 32 H 88/45 L 84 L 04/20/16 14:02 113 H 90/49 L 89 L 04/20/16 14:00 115 H 36 H 88 L 04/20/16 13:49 108 H 35 H 148/112 H 91 L Intake and Output (Last 8hrs): Intake & Output 03/08/17 03/08/17 03/08/17 06:59 14:59 22:59 Intake Total 660 Balance 660 Weight 173 lb 6.4 oz Intake: IV 300 RIGHT FOREARM 300 Oral 360 Other: # Bowel Movements 2 - Medications Active Medications: Active Medications Generic Name Dose Route Start Last Admin Trade Name Freq PRN Reason Stop Dose Admin Albuterol/Ipratropium 3 ml 04/20/16 13:13 Duoneb 3 Mg/0.5 Mg (3 Ml) Ud IH [id number] PRN Shortness of Breath Heparin Sodium (Porcine) 5,000 units 04/20/16 10:00 04/20/16 11:36 Heparin SC 5,000 units Q12 SIMON Administration Protocol Ceftriaxone Sodium 100 mls @ 100 mls/hr 04/19/16 16:45 04/20/16 11:37 Rocephin 2 Gm Ivpb IVPB 100 mls/hr DAILY SIMON Administration Protocol Lactulose 20 gm 04/19/16 18:00 04/20/16 11:36 Enulose PO 20 gm BID SIMON Administration Midodrine 10 mg 04/20/16 22:00 Proamatine PO Q12H SIMON Pantoprazole Sodium 40 mg 04/20/16 10:00 04/20/16 11:36 Protonix Inj IVP 40 mg DAILY SIMON Administration Rifaximin 550 mg 04/19/16 18:00 04/20/16 11:37 Xifaxan PO 550 mg BID SIMON Administration Protocol - Patient Studies Lab Studies: Lab Studies 04/20/16 04/20/16 04/20/16 Range/Units 16:01 14:58 13:51 WBC (4.5-11.0) 10^3/ul RBC (3.5-6.1) 10^6/uL Hgb (14.0-18.0) gm/dL Hct (42.0-52.0) % MCV (80.0-105.0) fL MCH (25.0-35.0) pg MCHC (31.0-37.0) g/dl RDW (11.5-14.5) % Plt Count (120.0-450.0) 10^3/uL MPV (7.0-11.0) fl Gran % (50.0-68.0) % Lymph % (Auto) (22.0-35.0) % Ralls % (Auto) (1.0-6.0) % Eos % (Auto) (1.5-5.0) % Baso % (Auto) (0.0-3.0) % Gran # (1.4-6.5) Lymph # (1.2-3.4) Ralls # (0.1-0.6) Eos # (0.0-0.7) Baso # (0.0-2.0) K/mm3 pCO2 (35-45) mm/Hg pO2 (80-100) mm/Hg HCO3 (21-28) mmol/L ABG pH (7.35-7.45) ABG Total CO2 (22-28) mmol.L ABG O2 Saturation (95-98) % ABG O2 Content (15-23) ML/dl ABG Base Excess (-2.0-3.0) mmol/L ABG Hemoglobin (11.7-17.4) g/dL ABG Carboxyhemoglobin (0.5-1.5) % POC ABG HHb (Measured) (0-5) % ABG Methemoglobin (0.0-3.0) % ABG O2 Capacity (16-24) mL/dl Hgb O2 Saturation (95.0-98.0) % FiO2 % Sodium (132-148) mmol/L Potassium (3.6-5.0) mmol/L Chloride (98-107) mmol/L Carbon Dioxide (21-33) mmol/L Anion Gap (10-20) BUN (7-21) mg/dL Creatinine (0.5-1.4) mg/dL Est GFR ( Amer) Est GFR (Non-Af Amer) POC Glucose (mg/dL) 66 79 86 (65-110) mg/dL Random Glucose (70-110) mg/dL Calcium (8.4-10.5) mg/dL Phosphorus (2.5-4.5) mg/dL Magnesium (1.7-2.2) mg/dL Total Bilirubin (0.2-1.3) mg/dL AST (15-59) U/L ALT (7-56) U/L Alkaline Phosphatase (38-133) U/L Ammonia (9-33) umol/L Lactate Dehydrogenase (333-699) U/L Total Creatine Kinase (35-230) U/L CK-MB (CK-2) (0.0-3.6) NG/ML CK-MB (CK-2) % (2.5-3.0) % Troponin I ng/mL Total Protein (5.8-8.3) g/dL Albumin (3.0-4.8) g/dL Globulin gm/dL Albumin/Globulin Ratio (1.1-1.8) Acetaminophen (10.0-20.0) ug/ml 04/20/16 04/20/16 04/20/16 Range/Units 13:02 12:53 11:57 WBC (4.5-11.0) 10^3/ul RBC (3.5-6.1) 10^6/uL Hgb (14.0-18.0) gm/dL Hct (42.0-52.0) % MCV (80.0-105.0) fL MCH (25.0-35.0) pg MCHC (31.0-37.0) g/dl RDW (11.5-14.5) % Plt Count (120.0-450.0) 10^3/uL MPV (7.0-11.0) fl Gran % (50.0-68.0) % Lymph % (Auto) (22.0-35.0) % Ralls % (Auto) (1.0-6.0) % Eos % (Auto) (1.5-5.0) % Baso % (Auto) (0.0-3.0) % Gran # (1.4-6.5) Lymph # (1.2-3.4) Ralls # (0.1-0.6) Eos # (0.0-0.7) Baso # (0.0-2.0) K/mm3 pCO2 44 (35-45) mm/Hg pO2 44.0 L* (80-100) mm/Hg HCO3 26.0 (21-28) mmol/L ABG pH 7.38 (7.35-7.45) ABG Total CO2 27.4 (22-28) mmol.L ABG O2 Saturation 76.3 L (95-98) % ABG O2 Content 14.6 L (15-23) ML/dl ABG Base Excess 0.5 (-2.0-3.0) mmol/L ABG Hemoglobin 13.8 (11.7-17.4) g/dL ABG Carboxyhemoglobin 0.9 (0.5-1.5) % POC ABG HHb (Measured) 23.4 H (0-5) % ABG Methemoglobin 0.3 (0.0-3.0) % ABG O2 Capacity 19.1 (16-24) mL/dl Hgb O2 Saturation 75.3 L (95.0-98.0) % FiO2 100.0 % Sodium (132-148) mmol/L Potassium (3.6-5.0) mmol/L Chloride (98-107) mmol/L Carbon Dioxide (21-33) mmol/L Anion Gap (10-20) BUN (7-21) mg/dL Creatinine (0.5-1.4) mg/dL Est GFR ( Amer) Est GFR (Non-Af Amer) POC Glucose (mg/dL) 105 84 (65-110) mg/dL Random Glucose (70-110) mg/dL Calcium (8.4-10.5) mg/dL Phosphorus (2.5-4.5) mg/dL Magnesium (1.7-2.2) mg/dL Total Bilirubin (0.2-1.3) mg/dL AST (15-59) U/L ALT (7-56) U/L Alkaline Phosphatase (38-133) U/L Ammonia (9-33) umol/L Lactate Dehydrogenase (333-699) U/L Total Creatine Kinase (35-230) U/L CK-MB (CK-2) (0.0-3.6) NG/ML CK-MB (CK-2) % (2.5-3.0) % Troponin I ng/mL Total Protein (5.8-8.3) g/dL Albumin (3.0-4.8) g/dL Globulin gm/dL Albumin/Globulin Ratio (1.1-1.8) Acetaminophen (10.0-20.0) ug/ml 04/20/16 04/20/16 04/20/16 Range/Units 11:09 10:20 09:45 WBC 9.2 D (4.5-11.0) 10^3/ul RBC 4.18 (3.5-6.1) 10^6/uL Hgb 12.3 L (14.0-18.0) gm/dL Hct 37.9 L (42.0-52.0) % MCV 90.7 (80.0-105.0) fL MCH 29.4 (25.0-35.0) pg MCHC 32.5 (31.0-37.0) g/dl RDW 15.3 H (11.5-14.5) % Plt Count 111 L (120.0-450.0) 10^3/uL MPV 11.5 H (7.0-11.0) fl Gran % 82.5 H (50.0-68.0) % Lymph % (Auto) 4.5 L (22.0-35.0) % Ralls % (Auto) 11.9 H (1.0-6.0) % Eos % (Auto) 0.9 L (1.5-5.0) % Baso % (Auto) 0.2 (0.0-3.0) % Gran # 7.58 H (1.4-6.5) Lymph # 0.4 L (1.2-3.4) Ralls # 1.1 H (0.1-0.6) Eos # 0.1 (0.0-0.7) Baso # 0.02 (0.0-2.0) K/mm3 pCO2 (35-45) mm/Hg pO2 (80-100) mm/Hg HCO3 (21-28) mmol/L ABG pH (7.35-7.45) ABG Total CO2 (22-28) mmol.L ABG O2 Saturation (95-98) % ABG O2 Content (15-23) ML/dl ABG Base Excess (-2.0-3.0) mmol/L ABG Hemoglobin (11.7-17.4) g/dL ABG Carboxyhemoglobin (0.5-1.5) % POC ABG HHb (Measured) (0-5) % ABG Methemoglobin (0.0-3.0) % ABG O2 Capacity (16-24) mL/dl Hgb O2 Saturation (95.0-98.0) % FiO2 % Sodium (132-148) mmol/L Potassium (3.6-5.0) mmol/L Chloride (98-107) mmol/L Carbon Dioxide (21-33) mmol/L Anion Gap (10-20) BUN (7-21) mg/dL Creatinine (0.5-1.4) mg/dL Est GFR ( Amer) Est GFR (Non-Af Amer) POC Glucose (mg/dL) 79 81 (65-110) mg/dL Random Glucose (70-110) mg/dL Calcium (8.4-10.5) mg/dL Phosphorus (2.5-4.5) mg/dL Magnesium (1.7-2.2) mg/dL Total Bilirubin (0.2-1.3) mg/dL AST (15-59) U/L ALT (7-56) U/L Alkaline Phosphatase (38-133) U/L Ammonia (9-33) umol/L Lactate Dehydrogenase (333-699) U/L Total Creatine Kinase (35-230) U/L CK-MB (CK-2) (0.0-3.6) NG/ML CK-MB (CK-2) % (2.5-3.0) % Troponin I ng/mL Total Protein (5.8-8.3) g/dL Albumin (3.0-4.8) g/dL Globulin gm/dL Albumin/Globulin Ratio (1.1-1.8) Acetaminophen (10.0-20.0) ug/ml 04/20/16 04/20/16 04/20/16 Range/Units 07:59 07:09 07:00 WBC (4.5-11.0) 10^3/ul RBC (3.5-6.1) 10^6/uL Hgb (14.0-18.0) gm/dL Hct (42.0-52.0) % MCV (80.0-105.0) fL MCH (25.0-35.0) pg MCHC (31.0-37.0) g/dl RDW (11.5-14.5) % Plt Count (120.0-450.0) 10^3/uL MPV (7.0-11.0) fl Gran % (50.0-68.0) % Lymph % (Auto) (22.0-35.0) % Ralls % (Auto) (1.0-6.0) % Eos % (Auto) (1.5-5.0) % Baso % (Auto) (0.0-3.0) % Gran # (1.4-6.5) Lymph # (1.2-3.4) Ralls # (0.1-0.6) Eos # (0.0-0.7) Baso # (0.0-2.0) K/mm3 pCO2 (35-45) mm/Hg pO2 (80-100) mm/Hg HCO3 (21-28) mmol/L ABG pH (7.35-7.45) ABG Total CO2 (22-28) mmol.L ABG O2 Saturation (95-98) % ABG O2 Content (15-23) ML/dl ABG Base Excess (-2.0-3.0) mmol/L ABG Hemoglobin (11.7-17.4) g/dL ABG Carboxyhemoglobin (0.5-1.5) % POC ABG HHb (Measured) (0-5) % ABG Methemoglobin (0.0-3.0) % ABG O2 Capacity (16-24) mL/dl Hgb O2 Saturation (95.0-98.0) % FiO2 % Sodium 140 (132-148) mmol/L Potassium 4.0 (3.6-5.0) mmol/L Chloride 101 (98-107) mmol/L Carbon Dioxide 25 (21-33) mmol/L Anion Gap 18 (10-20) BUN 65 H (7-21) mg/dL Creatinine 9.0 H* (0.5-1.4) mg/dL Est GFR ( Amer) 8 Est GFR (Non-Af Amer) 6 POC Glucose (mg/dL) 98 93 (65-110) mg/dL Random Glucose 91 (70-110) mg/dL Calcium 6.5 L* (8.4-10.5) mg/dL Phosphorus 7.8 H (2.5-4.5) mg/dL Magnesium 2.0 (1.7-2.2) mg/dL Total Bilirubin 1.2 (0.2-1.3) mg/dL AST 54 (15-59) U/L ALT 41 (7-56) U/L Alkaline Phosphatase 220 H (38-133) U/L Ammonia (9-33) umol/L Lactate Dehydrogenase (333-699) U/L Total Creatine Kinase (35-230) U/L CK-MB (CK-2) (0.0-3.6) NG/ML CK-MB (CK-2) % (2.5-3.0) % Troponin I ng/mL Total Protein 4.8 L (5.8-8.3) g/dL Albumin 2.0 L (3.0-4.8) g/dL Globulin 2.8 gm/dL Albumin/Globulin Ratio 0.7 L (1.1-1.8) Acetaminophen (10.0-20.0) ug/ml 04/20/16 04/20/16 04/20/16 Range/Units 05:57 05:30 05:03 WBC (4.5-11.0) 10^3/ul RBC (3.5-6.1) 10^6/uL Hgb (14.0-18.0) gm/dL Hct (42.0-52.0) % MCV (80.0-105.0) fL MCH (25.0-35.0) pg MCHC (31.0-37.0) g/dl RDW (11.5-14.5) % Plt Count (120.0-450.0) 10^3/uL MPV (7.0-11.0) fl Gran % (50.0-68.0) % Lymph % (Auto) (22.0-35.0) % Ralls % (Auto) (1.0-6.0) % Eos % (Auto) (1.5-5.0) % Baso % (Auto) (0.0-3.0) % Gran # (1.4-6.5) Lymph # (1.2-3.4) Ralls # (0.1-0.6) Eos # (0.0-0.7) Baso # (0.0-2.0) K/mm3 pCO2 (35-45) mm/Hg pO2 (80-100) mm/Hg HCO3 (21-28) mmol/L ABG pH (7.35-7.45) ABG Total CO2 (22-28) mmol.L ABG O2 Saturation (95-98) % ABG O2 Content (15-23) ML/dl ABG Base Excess (-2.0-3.0) mmol/L ABG Hemoglobin (11.7-17.4) g/dL ABG Carboxyhemoglobin (0.5-1.5) % POC ABG HHb (Measured) (0-5) % ABG Methemoglobin (0.0-3.0) % ABG O2 Capacity (16-24) mL/dl Hgb O2 Saturation (95.0-98.0) % FiO2 % Sodium (132-148) mmol/L Potassium (3.6-5.0) mmol/L Chloride (98-107) mmol/L Carbon Dioxide (21-33) mmol/L Anion Gap (10-20) BUN (7-21) mg/dL Creatinine (0.5-1.4) mg/dL Est GFR ( Amer) Est GFR (Non-Af Amer) POC Glucose (mg/dL) 104 91 (65-110) mg/dL Random Glucose (70-110) mg/dL Calcium (8.4-10.5) mg/dL Phosphorus (2.5-4.5) mg/dL Magnesium (1.7-2.2) mg/dL Total Bilirubin (0.2-1.3) mg/dL AST (15-59) U/L ALT (7-56) U/L Alkaline Phosphatase (38-133) U/L Ammonia (9-33) umol/L Lactate Dehydrogenase 826 H (333-699) U/L Total Creatine Kinase 1031 H (35-230) U/L CK-MB (CK-2) 17.8 H (0.0-3.6) NG/ML CK-MB (CK-2) % 1.7 L (2.5-3.0) % Troponin I < 0.01 D ng/mL Total Protein (5.8-8.3) g/dL Albumin (3.0-4.8) g/dL Globulin gm/dL Albumin/Globulin Ratio (1.1-1.8) Acetaminophen (10.0-20.0) ug/ml 04/20/16 04/20/16 04/20/16 Range/Units 04:33 03:07 01:56 WBC (4.5-11.0) 10^3/ul RBC (3.5-6.1) 10^6/uL Hgb (14.0-18.0) gm/dL Hct (42.0-52.0) % MCV (80.0-105.0) fL MCH (25.0-35.0) pg MCHC (31.0-37.0) g/dl RDW (11.5-14.5) % Plt Count (120.0-450.0) 10^3/uL MPV (7.0-11.0) fl Gran % (50.0-68.0) % Lymph % (Auto) (22.0-35.0) % Ralls % (Auto) (1.0-6.0) % Eos % (Auto) (1.5-5.0) % Baso % (Auto) (0.0-3.0) % Gran # (1.4-6.5) Lymph # (1.2-3.4) Ralls # (0.1-0.6) Eos # (0.0-0.7) Baso # (0.0-2.0) K/mm3 pCO2 (35-45) mm/Hg pO2 (80-100) mm/Hg HCO3 (21-28) mmol/L ABG pH (7.35-7.45) ABG Total CO2 (22-28) mmol.L ABG O2 Saturation (95-98) % ABG O2 Content (15-23) ML/dl ABG Base Excess (-2.0-3.0) mmol/L ABG Hemoglobin (11.7-17.4) g/dL ABG Carboxyhemoglobin (0.5-1.5) % POC ABG HHb (Measured) (0-5) % ABG Methemoglobin (0.0-3.0) % ABG O2 Capacity (16-24) mL/dl Hgb O2 Saturation (95.0-98.0) % FiO2 % Sodium (132-148) mmol/L Potassium (3.6-5.0) mmol/L Chloride (98-107) mmol/L Carbon Dioxide (21-33) mmol/L Anion Gap (10-20) BUN (7-21) mg/dL Creatinine (0.5-1.4) mg/dL Est GFR ( Amer) Est GFR (Non-Af Amer) POC Glucose (mg/dL) 127 H 68 85 (65-110) mg/dL Random Glucose (70-110) mg/dL Calcium (8.4-10.5) mg/dL Phosphorus (2.5-4.5) mg/dL Magnesium (1.7-2.2) mg/dL Total Bilirubin (0.2-1.3) mg/dL AST (15-59) U/L ALT (7-56) U/L Alkaline Phosphatase (38-133) U/L Ammonia (9-33) umol/L Lactate Dehydrogenase (333-699) U/L Total Creatine Kinase (35-230) U/L CK-MB (CK-2) (0.0-3.6) NG/ML CK-MB (CK-2) % (2.5-3.0) % Troponin I ng/mL Total Protein (5.8-8.3) g/dL Albumin (3.0-4.8) g/dL Globulin gm/dL Albumin/Globulin Ratio (1.1-1.8) Acetaminophen (10.0-20.0) ug/ml 04/20/16 04/20/16 04/19/16 Range/Units 00:58 00:03 23:30 WBC (4.5-11.0) 10^3/ul RBC (3.5-6.1) 10^6/uL Hgb (14.0-18.0) gm/dL Hct (42.0-52.0) % MCV (80.0-105.0) fL MCH (25.0-35.0) pg MCHC (31.0-37.0) g/dl RDW (11.5-14.5) % Plt Count (120.0-450.0) 10^3/uL MPV (7.0-11.0) fl Gran % (50.0-68.0) % Lymph % (Auto) (22.0-35.0) % Ralls % (Auto) (1.0-6.0) % Eos % (Auto) (1.5-5.0) % Baso % (Auto) (0.0-3.0) % Gran # (1.4-6.5) Lymph # (1.2-3.4) Ralls # (0.1-0.6) Eos # (0.0-0.7) Baso # (0.0-2.0) K/mm3 pCO2 (35-45) mm/Hg pO2 (80-100) mm/Hg HCO3 (21-28) mmol/L ABG pH (7.35-7.45) ABG Total CO2 (22-28) mmol.L ABG O2 Saturation (95-98) % ABG O2 Content (15-23) ML/dl ABG Base Excess (-2.0-3.0) mmol/L ABG Hemoglobin (11.7-17.4) g/dL ABG Carboxyhemoglobin (0.5-1.5) % POC ABG HHb (Measured) (0-5) % ABG Methemoglobin (0.0-3.0) % ABG O2 Capacity (16-24) mL/dl Hgb O2 Saturation (95.0-98.0) % FiO2 % Sodium (132-148) mmol/L Potassium (3.6-5.0) mmol/L Chloride (98-107) mmol/L Carbon Dioxide (21-33) mmol/L Anion Gap (10-20) BUN (7-21) mg/dL Creatinine (0.5-1.4) mg/dL Est GFR ( Amer) Est GFR (Non-Af Amer) POC Glucose (mg/dL) 89 78 79 (65-110) mg/dL Random Glucose (70-110) mg/dL Calcium (8.4-10.5) mg/dL Phosphorus (2.5-4.5) mg/dL Magnesium (1.7-2.2) mg/dL Total Bilirubin (0.2-1.3) mg/dL AST (15-59) U/L ALT (7-56) U/L Alkaline Phosphatase (38-133) U/L Ammonia (9-33) umol/L Lactate Dehydrogenase (333-699) U/L Total Creatine Kinase (35-230) U/L CK-MB (CK-2) (0.0-3.6) NG/ML CK-MB (CK-2) % (2.5-3.0) % Troponin I ng/mL Total Protein (5.8-8.3) g/dL Albumin (3.0-4.8) g/dL Globulin gm/dL Albumin/Globulin Ratio (1.1-1.8) Acetaminophen (10.0-20.0) ug/ml 04/19/16 04/19/16 04/19/16 Range/Units 22:04 21:10 20:50 WBC (4.5-11.0) 10^3/ul RBC (3.5-6.1) 10^6/uL Hgb (14.0-18.0) gm/dL Hct (42.0-52.0) % MCV (80.0-105.0) fL MCH (25.0-35.0) pg MCHC (31.0-37.0) g/dl RDW (11.5-14.5) % Plt Count (120.0-450.0) 10^3/uL MPV (7.0-11.0) fl Gran % (50.0-68.0) % Lymph % (Auto) (22.0-35.0) % Ralls % (Auto) (1.0-6.0) % Eos % (Auto) (1.5-5.0) % Baso % (Auto) (0.0-3.0) % Gran # (1.4-6.5) Lymph # (1.2-3.4) Ralls # (0.1-0.6) Eos # (0.0-0.7) Baso # (0.0-2.0) K/mm3 pCO2 (35-45) mm/Hg pO2 (80-100) mm/Hg HCO3 (21-28) mmol/L ABG pH (7.35-7.45) ABG Total CO2 (22-28) mmol.L ABG O2 Saturation (95-98) % ABG O2 Content (15-23) ML/dl ABG Base Excess (-2.0-3.0) mmol/L ABG Hemoglobin (11.7-17.4) g/dL ABG Carboxyhemoglobin (0.5-1.5) % POC ABG HHb (Measured) (0-5) % ABG Methemoglobin (0.0-3.0) % ABG O2 Capacity (16-24) mL/dl Hgb O2 Saturation (95.0-98.0) % FiO2 % Sodium (132-148) mmol/L Potassium (3.6-5.0) mmol/L Chloride (98-107) mmol/L Carbon Dioxide (21-33) mmol/L Anion Gap (10-20) BUN (7-21) mg/dL Creatinine (0.5-1.4) mg/dL Est GFR ( Amer) Est GFR (Non-Af Amer) POC Glucose (mg/dL) 72 70 (65-110) mg/dL Random Glucose (70-110) mg/dL Calcium (8.4-10.5) mg/dL Phosphorus (2.5-4.5) mg/dL Magnesium (1.7-2.2) mg/dL Total Bilirubin (0.2-1.3) mg/dL AST (15-59) U/L ALT (7-56) U/L Alkaline Phosphatase (38-133) U/L Ammonia (9-33) umol/L Lactate Dehydrogenase 817 H (333-699) U/L Total Creatine Kinase 1078 H (35-230) U/L CK-MB (CK-2) 21.4 H (0.0-3.6) NG/ML CK-MB (CK-2) % 2.0 L (2.5-3.0) % Troponin I 0.02 D ng/mL Total Protein (5.8-8.3) g/dL Albumin (3.0-4.8) g/dL Globulin gm/dL Albumin/Globulin Ratio (1.1-1.8) Acetaminophen (10.0-20.0) ug/ml 04/19/16 04/19/16 04/19/16 Range/Units 19:47 18:46 18:00 WBC (4.5-11.0) 10^3/ul RBC (3.5-6.1) 10^6/uL Hgb (14.0-18.0) gm/dL Hct (42.0-52.0) % MCV (80.0-105.0) fL MCH (25.0-35.0) pg MCHC (31.0-37.0) g/dl RDW (11.5-14.5) % Plt Count (120.0-450.0) 10^3/uL MPV (7.0-11.0) fl Gran % (50.0-68.0) % Lymph % (Auto) (22.0-35.0) % Ralls % (Auto) (1.0-6.0) % Eos % (Auto) (1.5-5.0) % Baso % (Auto) (0.0-3.0) % Gran # (1.4-6.5) Lymph # (1.2-3.4) Ralls # (0.1-0.6) Eos # (0.0-0.7) Baso # (0.0-2.0) K/mm3 pCO2 (35-45) mm/Hg pO2 (80-100) mm/Hg HCO3 (21-28) mmol/L ABG pH (7.35-7.45) ABG Total CO2 (22-28) mmol.L ABG O2 Saturation (95-98) % ABG O2 Content (15-23) ML/dl ABG Base Excess (-2.0-3.0) mmol/L ABG Hemoglobin (11.7-17.4) g/dL ABG Carboxyhemoglobin (0.5-1.5) % POC ABG HHb (Measured) (0-5) % ABG Methemoglobin (0.0-3.0) % ABG O2 Capacity (16-24) mL/dl Hgb O2 Saturation (95.0-98.0) % FiO2 % Sodium (132-148) mmol/L Potassium (3.6-5.0) mmol/L Chloride (98-107) mmol/L Carbon Dioxide (21-33) mmol/L Anion Gap (10-20) BUN (7-21) mg/dL Creatinine (0.5-1.4) mg/dL Est GFR ( Amer) Est GFR (Non-Af Amer) POC Glucose (mg/dL) 66 61 L (65-110) mg/dL Random Glucose (70-110) mg/dL Calcium (8.4-10.5) mg/dL Phosphorus (2.5-4.5) mg/dL Magnesium (1.7-2.2) mg/dL Total Bilirubin (0.2-1.3) mg/dL AST (15-59) U/L ALT (7-56) U/L Alkaline Phosphatase (38-133) U/L Ammonia 19 (9-33) umol/L Lactate Dehydrogenase (333-699) U/L Total Creatine Kinase (35-230) U/L CK-MB (CK-2) (0.0-3.6) NG/ML CK-MB (CK-2) % (2.5-3.0) % Troponin I ng/mL Total Protein (5.8-8.3) g/dL Albumin (3.0-4.8) g/dL Globulin gm/dL Albumin/Globulin Ratio (1.1-1.8) Acetaminophen < 10.0 L (10.0-20.0) ug/ml 04/19/16 Range/Units 17:52 WBC (4.5-11.0) 10^3/ul RBC (3.5-6.1) 10^6/uL Hgb (14.0-18.0) gm/dL Hct (42.0-52.0) % MCV (80.0-105.0) fL MCH (25.0-35.0) pg MCHC (31.0-37.0) g/dl RDW (11.5-14.5) % Plt Count (120.0-450.0) 10^3/uL MPV (7.0-11.0) fl Gran % (50.0-68.0) % Lymph % (Auto) (22.0-35.0) % Ralls % (Auto) (1.0-6.0) % Eos % (Auto) (1.5-5.0) % Baso % (Auto) (0.0-3.0) % Gran # (1.4-6.5) Lymph # (1.2-3.4) Ralls # (0.1-0.6) Eos # (0.0-0.7) Baso # (0.0-2.0) K/mm3 pCO2 (35-45) mm/Hg pO2 (80-100) mm/Hg HCO3 (21-28) mmol/L ABG pH (7.35-7.45) ABG Total CO2 (22-28) mmol.L ABG O2 Saturation (95-98) % ABG O2 Content (15-23) ML/dl ABG Base Excess (-2.0-3.0) mmol/L ABG Hemoglobin (11.7-17.4) g/dL ABG Carboxyhemoglobin (0.5-1.5) % POC ABG HHb (Measured) (0-5) % ABG Methemoglobin (0.0-3.0) % ABG O2 Capacity (16-24) mL/dl Hgb O2 Saturation (95.0-98.0) % FiO2 % Sodium (132-148) mmol/L Potassium (3.6-5.0) mmol/L Chloride (98-107) mmol/L Carbon Dioxide (21-33) mmol/L Anion Gap (10-20) BUN (7-21) mg/dL Creatinine (0.5-1.4) mg/dL Est GFR ( Amer) Est GFR (Non-Af Amer) POC Glucose (mg/dL) 55 L (65-110) mg/dL Random Glucose (70-110) mg/dL Calcium (8.4-10.5) mg/dL Phosphorus (2.5-4.5) mg/dL Magnesium (1.7-2.2) mg/dL Total Bilirubin (0.2-1.3) mg/dL AST (15-59) U/L ALT (7-56) U/L Alkaline Phosphatase (38-133) U/L Ammonia (9-33) umol/L Lactate Dehydrogenase (333-699) U/L Total Creatine Kinase (35-230) U/L CK-MB (CK-2) (0.0-3.6) NG/ML CK-MB (CK-2) % (2.5-3.0) % Troponin I ng/mL Total Protein (5.8-8.3) g/dL Albumin (3.0-4.8) g/dL Globulin gm/dL Albumin/Globulin Ratio (1.1-1.8) Acetaminophen (10.0-20.0) ug/ml Laboratory Results - last 24 hr 04/19/16 04/19/16 04/19/16 17:52 18:00 18:46 WBC RBC Hgb Hct MCV MCH MCHC RDW Plt Count MPV Gran % Lymph % (Auto) Ralls % (Auto) Eos % (Auto) Baso % (Auto) Gran # Lymph # Ralls # Eos # Baso # pCO2 pO2 HCO3 ABG pH ABG Total CO2 ABG O2 Saturation ABG O2 Content ABG Base Excess ABG Hemoglobin ABG Carboxyhemoglobin POC ABG HHb (Measured) ABG Methemoglobin ABG O2 Capacity Hgb O2 Saturation FiO2 Sodium Potassium Chloride Carbon Dioxide Anion Gap BUN Creatinine Est GFR ( Amer) Est GFR (Non-Af Amer) POC Glucose (mg/dL) 55 L 61 L Random Glucose Calcium Phosphorus Magnesium Total Bilirubin AST ALT Alkaline Phosphatase Ammonia 19 Lactate Dehydrogenase Total Creatine Kinase CK-MB (CK-2) CK-MB (CK-2) % Troponin I Total Protein Albumin Globulin Albumin/Globulin Ratio Acetaminophen < 10.0 L 04/19/16 04/19/16 04/19/16 19:47 20:50 21:10 WBC RBC Hgb Hct MCV MCH MCHC RDW Plt Count MPV Gran % Lymph % (Auto) Ralls % (Auto) Eos % (Auto) Baso % (Auto) Gran # Lymph # Ralls # Eos # Baso # pCO2 pO2 HCO3 ABG pH ABG Total CO2 ABG O2 Saturation ABG O2 Content ABG Base Excess ABG Hemoglobin ABG Carboxyhemoglobin POC ABG HHb (Measured) ABG Methemoglobin ABG O2 Capacity Hgb O2 Saturation FiO2 Sodium Potassium Chloride Carbon Dioxide Anion Gap BUN Creatinine Est GFR ( Amer) Est GFR (Non-Af Amer) POC Glucose (mg/dL) 66 70 Random Glucose Calcium Phosphorus Magnesium Total Bilirubin AST ALT Alkaline Phosphatase Ammonia Lactate Dehydrogenase 817 H Total Creatine Kinase 1078 H CK-MB (CK-2) 21.4 H CK-MB (CK-2) % 2.0 L Troponin I 0.02 D Total Protein Albumin Globulin Albumin/Globulin Ratio Acetaminophen 04/19/16 04/19/16 04/20/16 22:04 23:30 00:03 WBC RBC Hgb Hct MCV MCH MCHC RDW Plt Count MPV Gran % Lymph % (Auto) Ralls % (Auto) Eos % (Auto) Baso % (Auto) Gran # Lymph # Ralls # Eos # Baso # pCO2 pO2 HCO3 ABG pH ABG Total CO2 ABG O2 Saturation ABG O2 Content ABG Base Excess ABG Hemoglobin ABG Carboxyhemoglobin POC ABG HHb (Measured) ABG Methemoglobin ABG O2 Capacity Hgb O2 Saturation FiO2 Sodium Potassium Chloride Carbon Dioxide Anion Gap BUN Creatinine Est GFR ( Amer) Est GFR (Non-Af Amer) POC Glucose (mg/dL) 72 79 78 Random Glucose Calcium Phosphorus Magnesium Total Bilirubin AST ALT Alkaline Phosphatase Ammonia Lactate Dehydrogenase Total Creatine Kinase CK-MB (CK-2) CK-MB (CK-2) % Troponin I Total Protein Albumin Globulin Albumin/Globulin Ratio Acetaminophen 04/20/16 04/20/16 04/20/16 00:58 01:56 03:07 WBC RBC Hgb Hct MCV MCH MCHC RDW Plt Count MPV Gran % Lymph % (Auto) Ralls % (Auto) Eos % (Auto) Baso % (Auto) Gran # Lymph # Ralls # Eos # Baso # pCO2 pO2 HCO3 ABG pH ABG Total CO2 ABG O2 Saturation ABG O2 Content ABG Base Excess ABG Hemoglobin ABG Carboxyhemoglobin POC ABG HHb (Measured) ABG Methemoglobin ABG O2 Capacity Hgb O2 Saturation FiO2 Sodium Potassium Chloride Carbon Dioxide Anion Gap BUN Creatinine Est GFR ( Amer) Est GFR (Non-Af Amer) POC Glucose (mg/dL) 89 85 68 Random Glucose Calcium Phosphorus Magnesium Total Bilirubin AST ALT Alkaline Phosphatase Ammonia Lactate Dehydrogenase Total Creatine Kinase CK-MB (CK-2) CK-MB (CK-2) % Troponin I Total Protein Albumin Globulin Albumin/Globulin Ratio Acetaminophen 04/20/16 04/20/16 04/20/16 04:33 05:03 05:30 WBC RBC Hgb Hct MCV MCH MCHC RDW Plt Count MPV Gran % Lymph % (Auto) Ralls % (Auto) Eos % (Auto) Baso % (Auto) Gran # Lymph # Ralls # Eos # Baso # pCO2 pO2 HCO3 ABG pH ABG Total CO2 ABG O2 Saturation ABG O2 Content ABG Base Excess ABG Hemoglobin ABG Carboxyhemoglobin POC ABG HHb (Measured) ABG Methemoglobin ABG O2 Capacity Hgb O2 Saturation FiO2 Sodium Potassium Chloride Carbon Dioxide Anion Gap BUN Creatinine Est GFR ( Amer) Est GFR (Non-Af Amer) POC Glucose (mg/dL) 127 H 91 Random Glucose Calcium Phosphorus Magnesium Total Bilirubin AST ALT Alkaline Phosphatase Ammonia Lactate Dehydrogenase 826 H Total Creatine Kinase 1031 H CK-MB (CK-2) 17.8 H CK-MB (CK-2) % 1.7 L Troponin I < 0.01 D Total Protein Albumin Globulin Albumin/Globulin Ratio Acetaminophen 04/20/16 04/20/16 04/20/16 05:57 07:00 07:09 WBC RBC Hgb Hct MCV MCH MCHC RDW Plt Count MPV Gran % Lymph % (Auto) Ralls % (Auto) Eos % (Auto) Baso % (Auto) Gran # Lymph # Ralls # Eos # Baso # pCO2 pO2 HCO3 ABG pH ABG Total CO2 ABG O2 Saturation ABG O2 Content ABG Base Excess ABG Hemoglobin ABG Carboxyhemoglobin POC ABG HHb (Measured) ABG Methemoglobin ABG O2 Capacity Hgb O2 Saturation FiO2 Sodium 140 Potassium 4.0 Chloride 101 Carbon Dioxide 25 Anion Gap 18 BUN 65 H Creatinine 9.0 H* Est GFR ( Amer) 8 Est GFR (Non-Af Amer) 6 POC Glucose (mg/dL) 104 93 Random Glucose 91 Calcium 6.5 L* Phosphorus 7.8 H Magnesium 2.0 Total Bilirubin 1.2 AST 54 ALT 41 Alkaline Phosphatase 220 H Ammonia Lactate Dehydrogenase Total Creatine Kinase CK-MB (CK-2) CK-MB (CK-2) % Troponin I Total Protein 4.8 L Albumin 2.0 L Globulin 2.8 Albumin/Globulin Ratio 0.7 L Acetaminophen 04/20/16 04/20/16 04/20/16 07:59 09:45 10:20 WBC 9.2 D RBC 4.18 Hgb 12.3 L Hct 37.9 L MCV 90.7 MCH 29.4 MCHC 32.5 RDW 15.3 H Plt Count 111 L MPV 11.5 H Gran % 82.5 H Lymph % (Auto) 4.5 L Ralls % (Auto) 11.9 H Eos % (Auto) 0.9 L Baso % (Auto) 0.2 Gran # 7.58 H Lymph # 0.4 L Ralls # 1.1 H Eos # 0.1 Baso # 0.02 pCO2 pO2 HCO3 ABG pH ABG Total CO2 ABG O2 Saturation ABG O2 Content ABG Base Excess ABG Hemoglobin ABG Carboxyhemoglobin POC ABG HHb (Measured) ABG Methemoglobin ABG O2 Capacity Hgb O2 Saturation FiO2 Sodium Potassium Chloride Carbon Dioxide Anion Gap BUN Creatinine Est GFR ( Amer) Est GFR (Non-Af Amer) POC Glucose (mg/dL) 98 81 Random Glucose Calcium Phosphorus Magnesium Total Bilirubin AST ALT Alkaline Phosphatase Ammonia Lactate Dehydrogenase Total Creatine Kinase CK-MB (CK-2) CK-MB (CK-2) % Troponin I Total Protein Albumin Globulin Albumin/Globulin Ratio Acetaminophen 04/20/16 04/20/16 04/20/16 11:09 11:57 12:53 WBC RBC Hgb Hct MCV MCH MCHC RDW Plt Count MPV Gran % Lymph % (Auto) Ralls % (Auto) Eos % (Auto) Baso % (Auto) Gran # Lymph # Ralls # Eos # Baso # pCO2 pO2 HCO3 ABG pH ABG Total CO2 ABG O2 Saturation ABG O2 Content ABG Base Excess ABG Hemoglobin ABG Carboxyhemoglobin POC ABG HHb (Measured) ABG Methemoglobin ABG O2 Capacity Hgb O2 Saturation FiO2 Sodium Potassium Chloride Carbon Dioxide Anion Gap BUN Creatinine Est GFR ( Amer) Est GFR (Non-Af Amer) POC Glucose (mg/dL) 79 84 105 Random Glucose Calcium Phosphorus Magnesium Total Bilirubin AST ALT Alkaline Phosphatase Ammonia Lactate Dehydrogenase Total Creatine Kinase CK-MB (CK-2) CK-MB (CK-2) % Troponin I Total Protein Albumin Globulin Albumin/Globulin Ratio Acetaminophen 04/20/16 04/20/16 04/20/16 13:02 13:51 14:58 WBC RBC Hgb Hct MCV MCH MCHC RDW Plt Count MPV Gran % Lymph % (Auto) Ralls % (Auto) Eos % (Auto) Baso % (Auto) Gran # Lymph # Ralls # Eos # Baso # pCO2 44 pO2 44.0 L* HCO3 26.0 ABG pH 7.38 ABG Total CO2 27.4 ABG O2 Saturation 76.3 L ABG O2 Content 14.6 L ABG Base Excess 0.5 ABG Hemoglobin 13.8 ABG Carboxyhemoglobin 0.9 POC ABG HHb (Measured) 23.4 H ABG Methemoglobin 0.3 ABG O2 Capacity 19.1 Hgb O2 Saturation 75.3 L FiO2 100.0 Sodium Potassium Chloride Carbon Dioxide Anion Gap BUN Creatinine Est GFR ( Amer) Est GFR (Non-Af Amer) POC Glucose (mg/dL) 86 79 Random Glucose Calcium Phosphorus Magnesium Total Bilirubin AST ALT Alkaline Phosphatase Ammonia Lactate Dehydrogenase Total Creatine Kinase CK-MB (CK-2) CK-MB (CK-2) % Troponin I Total Protein Albumin Globulin Albumin/Globulin Ratio Acetaminophen 04/20/16 16:01 WBC RBC Hgb Hct MCV MCH MCHC RDW Plt Count MPV Gran % Lymph % (Auto) Ralls % (Auto) Eos % (Auto) Baso % (Auto) Gran # Lymph # Ralls # Eos # Baso # pCO2 pO2 HCO3 ABG pH ABG Total CO2 ABG O2 Saturation ABG O2 Content ABG Base Excess ABG Hemoglobin ABG Carboxyhemoglobin POC ABG HHb (Measured) ABG Methemoglobin ABG O2 Capacity Hgb O2 Saturation FiO2 Sodium Potassium Chloride Carbon Dioxide Anion Gap BUN Creatinine Est GFR ( Amer) Est GFR (Non-Af Amer) POC Glucose (mg/dL) 66 Random Glucose Calcium Phosphorus Magnesium Total Bilirubin AST ALT Alkaline Phosphatase Ammonia Lactate Dehydrogenase Total Creatine Kinase CK-MB (CK-2) CK-MB (CK-2) % Troponin I Total Protein Albumin Globulin Albumin/Globulin Ratio Acetaminophen EKG/Cardiology Studies: Cardiology / EKG Studies 04/20/16 09:29 EKG [ELECTROCARDIOGRAM] Stat Comment: Reason For Exam: fu Critical Care Progress Note - Nutrition Nutrition: Nutrition Category Date Time Status Renal Diet [DIET] Diets 04/20/16 Dinner Ordered Attending/Attestation - Attestation I have personally seen and examined this patient.: Yes I have fully participated in the care of the patient.: Yes I have reviewed all pertinent clinical information: Yes Notes (Text): 04/20/16 17:20 50 y/o M admitted to the ICU secondary to AMS, hypothermia and questionable drug OD with heroin. Overnight no acute issues, tolerated HD this am with 1L removal. Transient hypoxia continued as the day progressed, unclear cause as CXR does not explain. Would have to evaluate for possible VTE Would place on BIPAP 100% repeat ABG , if hypoxia continues, and work of breathing increases, would likely Intubate and evaluate with imaging. Start heparin ggt, Venous dopplers lower ext. F/U 2-d Echo findings, for PE, etc. HX of HEP C untreated, presumed HEP C Cirrhosis ? Encephalopathy improving on lactulose and rifaxamine. GI following patient as well. poor prognosis cc time 65 min
--- NOTE | 2016-04-20 16:48 | CP.PCM.PN ---
<Ezequiel Cota - Last Filed: 04/20/16 16:44> Subjective - Date & Time of Evaluation Date of Evaluation: 04/20/16 Time of Evaluation: 10:00 - Subjective Subjective: Pt was seen and examined at bedside. Pt was having hemodialysis at time of examination. He was AAOx2 to person and place. He denied any acute complaints. He was found to have a tremor. He had 2 bm overnight as per nursing staff. He admitted to [facility]. He denied fever, chills, chest pains, abdominal pains, n/v/d/ c. Objective - Vital Signs/Intake and Output Vital Signs (last 24 hours): Temp Pulse Resp BP Pulse Ox 97.4 F L 90 28 H 152/92 H 85 L 04/20/16 16:00 04/20/16 16:29 04/20/16 16:00 04/20/16 16:00 04/20/16 16:00 Intake and Output: 04/20/16 04/20/16 06:59 18:59 Intake Total 660 Balance 660 - Medications Medications: Current Medications Albuterol/Ipratropium (Duoneb 3 Mg/0.5 Mg (3 Ml) Ud) 3 ml IH [id number] PRN PRN Reason: Shortness of Breath Heparin Sodium (Porcine) (Heparin) 5,000 units SC Q12 SIMON PRN Reason: Protocol Last Admin: 04/20/16 11:36 Dose: 5,000 units Ceftriaxone Sodium (Rocephin 2 Gm Ivpb) 100 mls @ 100 mls/hr IVPB DAILY SIMON PRN Reason: Protocol Last Admin: 04/20/16 11:37 Dose: 100 mls/hr Lactulose (Enulose) 20 gm PO BID SIMON Last Admin: 04/20/16 11:36 Dose: 20 gm Midodrine (Proamatine) 10 mg PO Q12H SIMON Pantoprazole Sodium (Protonix Inj) 40 mg IVP DAILY SIMON Last Admin: 04/20/16 11:36 Dose: 40 mg Rifaximin (Xifaxan) 550 mg PO BID SIMON PRN Reason: Protocol Last Admin: 04/20/16 11:37 Dose: 550 mg - Labs Labs: 04/20/16 10:20 04/20/16 07:00 PT 12.4 Seconds (9.9-11.8) H 04/19/16 12:56 INR 1.15 (0.93-1.08) H 04/19/16 12:56 APTT 27.3 Seconds (23.7-30.8) 04/19/16 12:56 - Constitutional Appears: No Acute Distress, Confused - Head Exam Head Exam: ATRAUMATIC, NORMAL INSPECTION, NORMOCEPHALIC - Eye Exam Eye Exam: EOMI, Normal appearance, PERRL Pupil Exam: NORMAL ACCOMODATION, PERRL - ENT Exam ENT Exam: Mucous Membranes Moist, Normal Exam - Neck Exam Neck Exam: Full ROM, Normal Inspection. absent: Lymphadenopathy - Respiratory Exam Respiratory Exam: Decreased Breath Sounds, Rales - Cardiovascular Exam Cardiovascular Exam: REGULAR RHYTHM, +S1, +S2. absent: Murmur - GI/Abdominal Exam GI & Abdominal Exam: Soft, Normal Bowel Sounds. absent: Tenderness - Extremities Exam Extremities Exam: Full ROM, Normal Capillary Refill, Normal Inspection. absent : Joint Swelling, Pedal Edema - Neurological Exam Neurological Exam: Altered, Awake - Psychiatric Exam Psychiatric exam: Normal Affect, Normal Mood - Skin Skin Exam: Dry, Intact, Normal Color, Warm Assessment and Plan - Assessment and Plan (Free Text) Assessment: 50 M with PMHx of ESRD on HD (T,TH,S) cirrhosis, hep C, alcohol abuse, and polysubstance abuse (heroin/cocaine) admitted with AMS 2/2 drug intoxication vs encephalopathy. Pt to receiving HD today, will repeat cxr to fu congestion. As per GI, possible US guided paracentesis to reevaluate SAAG, TP, and r/o SBP. Pt on Bipap due to poor 02 sats. Repeat ABG Plan as per ICU Team Neuro -AMS 2/2 drug overdose v. uremia v. hepatic encephalopathy - pt is awake and oriented x2, able to follow simple commends - pt continues to have tremors - drug screen pending - pt demonstrates moderate oropharyngeal dysphagia, was recommended pureed diet with crushed medications - will treat empirically for hepatic encephalopathy - cont to monitor cardio - Low BP - pt states he take midorine BID at home, will start - trops neg x3 - BNP elevated - echo pending - cont to monitor - maintain MAP>65 - cardiology following pulm - cxr shows mild pulm venous congestion and background of COPD - ABG showed low O2 on the rebreather - Saturations in the 80s - will start Bipap - cont supplemental O2 to maintain SaO2>90 - cont to monitor - aspiration precaution, HOB >35 GI - h/o hep c and ascites - abd US showed moderate ascites with mild hepatosplenomegaly and moderate bilateral pleural effusions - repeat total bilirubin is wnl, cont to monitor LFTs - ammonia level is unremarkable - on lactulose and rifaxmine for empiric treatment for hepatic encephalopathy - titrate lactulose to 2-3 BM per day - paracentesis is ordered - ppx antibiotic for SBP - GI following - pureed diet - protonix ppx Renal - ESRD on HD - HD today, 1 liter removed - nephro consult, Dr. Gonzalez - monitor electrolytes, replace as needed endo - glucose ranging between 50- 120 - fingerstick q6h - start PO diet, monitor glucose ID - afebrile without leukocytosis - hypothermia (91.9) has resolved - blood cx neg after 24 hours - urine cultures pending - procalcitonin mildly elevated - lactate in wnl <Rich RILEY,Luis - Last Filed: 04/20/16 17:07> Objective - Vital Signs/Intake and Output Vital Signs (last 24 hours): Temp Pulse Resp BP Pulse Ox 97.4 F L 90 28 H 152/92 H 85 L 04/20/16 16:00 04/20/16 16:29 04/20/16 16:00 04/20/16 16:00 04/20/16 16:00 Intake and Output: 04/20/16 04/20/16 06:59 18:59 Intake Total 660 Balance 660 - Medications Medications: Current Medications Albuterol/Ipratropium (Duoneb 3 Mg/0.5 Mg (3 Ml) Ud) 3 ml IH [id number] PRN PRN Reason: Shortness of Breath Heparin Sodium (Porcine) (Heparin) 5,000 units SC Q12 SIMON PRN Reason: Protocol Last Admin: 04/20/16 11:36 Dose: 5,000 units Ceftriaxone Sodium (Rocephin 2 Gm Ivpb) 100 mls @ 100 mls/hr IVPB DAILY SIMON PRN Reason: Protocol Last Admin: 04/20/16 11:37 Dose: 100 mls/hr Lactulose (Enulose) 20 gm PO BID SIMON Last Admin: 04/20/16 11:36 Dose: 20 gm Midodrine (Proamatine) 10 mg PO Q12H SIMON Pantoprazole Sodium (Protonix Inj) 40 mg IVP DAILY SIMON Last Admin: 04/20/16 11:36 Dose: 40 mg Rifaximin (Xifaxan) 550 mg PO BID SIMON PRN Reason: Protocol Last Admin: 04/20/16 11:37 Dose: 550 mg - Labs Labs: 04/20/16 10:20 04/20/16 07:00 PT 12.4 Seconds (9.9-11.8) H 04/19/16 12:56 INR 1.15 (0.93-1.08) H 04/19/16 12:56 APTT 27.3 Seconds (23.7-30.8) 04/19/16 12:56 Attending/Attestation - Attestation I have personally seen and examined this patient.: Yes I have fully participated in the care of the patient.: Yes I have reviewed all pertinent clinical information, including history, physical exam and plan: Yes Notes (Text): Patient was seen and examined with chief medical technologist .Agreed with resident assessment and plan. 50 M with CAD,sp CABAG,ESRD on HD, wasa dmitted with change of mental status, hypothermia and possible drug overdose and hypotension. Menatal status is better , but patient is still confused, there is no focal deficit. Hypothermia has improved, on broad spectrum antibiotics , will follow up culture , also has possible aspiration Pneumonia. Prognosis is guarded.
--- NOTE | 2016-04-20 16:56 | RAD ---
HISTORY: Aspiration. COMPARISON: April 19, 2016. FINDINGS: LUNGS: Worsening infiltrates lower lobes consistent with clinically suspected aspiration pneumonia. PLEURA: Lobe stable trace bilateral pleural effusions. CARDIOVASCULAR: No radiographic findings to suggest acute or significant cardiovascular disease. Satisfactory position of dialysis catheter. OSSEOUS STRUCTURES: No significant abnormalities. VISUALIZED UPPER ABDOMEN: Normal. OTHER FINDINGS: None. IMPRESSION: New lower lobe infiltrates consistent with clinically suspected aspiration pneumonia.
[2016-04-20 17:52] LABS: ARTERIAL BLOOD GAS HCO3 25.4 mmol/L (21-28); ARTERIAL BLOOD GAS O2 CAPACITY 16.9 mL/dl (16-24); ARTERIAL BLOOD GAS O2 CONTENT 15.2 ML/dl (15-23); ARTERIAL BLOOD HGB O2 SAT 89.3 % (95.0-98.0); CARBOXYHEMOGLOBIN 0.8 % (0.5-1.5); HHB 9.9 % (0-5)
[2016-04-20] MEDS ORDERED: Heparin25000 units/250ml 1/2NS 250 ML IV PRN (17:56)
[2016-04-20] MEDS ORDERED: Propofol 10 mg/ml Inj (20 ML) IVP ONE (19:12)
[2016-04-20] MEDS ORDERED: Sodium Chloride 0.9% 500 ML IV STA (20:37)
[2016-04-20] MEDS ORDERED: Iodixanol 320 MG/ML 100 ML BOTTLE IV ONE (21:04)
[2016-04-20] MEDS ORDERED: metroNIDAZOLE IV 500 mg/100 ml 100 ML IVPB SCH (22:00)
--- NOTE | 2016-04-20 22:39 | CON ---
DATE: 04/20/2016 The patient seen, and consultation done on 04/20/2016. CONSULTATION REQUESTED BY: Dr. Wolfgang Irwin. REASON FOR CONSULTATION: End-stage renal disease, hypocalcemia, rhabdomyolysis. The patient is a 50-year-old gentleman with a known history of end-stage renal disease, although he i s not compliant with his outpatient hemodialysis sessions. He was brought to [facility] s Emergency Department yesterday after he was found unresponsive at his home (the [facility]). In truth, geovanny capone was noted to be confused and somewhat lethargic and with several bags of heroin being found around the patient. On arrival to the ED he was noted to be hypotensive with a blood pressure of 73/34, and a heart rate of 66, breathing at 14 breaths per minute. Oxygen saturation was 87%, and oral tempera ture was 91.9 degrees. In the ED, the patient was placed on a Nila Hugger. He was also given Narcan , and appeared to be more interactive following the administration of Narcan. Laboratory studies obtained in the ED revealed that the patient had a normal white blood cell count, although he had 78% neutrophils. He was thrombocytopenic at 113,000. Lactic acid level was within n ormal limits. Calcium was low at 6.5, however, and CPK was elevated at 971, but this subsequently in creased to as high as 1078. N-terminal proBNP was increased at 33,900, and chest x-ray did reveal so me mild vascular congestion. The patient underwent a CT scan of his head which did not reveal any ac alex pathology, as well as an abdominal ultrasound which revealed moderate bilateral pleural effusions , as well as moderate ascites, and mild hepatosplenomegaly. He was admitted to the intensive care unit for further evaluation and management. Of note, the patie nt does have end-stage renal disease, and is supposed to receive hemodialysis every Monday, , and Monday at [facility] under the care of another chocolate packer. His last hemodialysis sessio n, however, was on , 04/14, (today is 04/20). He is somewhat confused and cannot provide a more detailed history. There was apparently no nausea, vomiting, or abdominal pain, howeve r. REVIEW OF SYSTEMS: Taken across all 10 systems and 14 points, and was negative unless stated otherwi se above. PAST MEDICAL HISTORY: Significant for alcohol abuse, cocaine and heroin abuse, cirrhosis with prior history of decompensation, end-stage renal disease on hemodialysis every Monday, , and via a right internal jugular PermCath, coronary artery disease with history of CABG. Medications that the patient had been taking at home and prior to admission were unknown. The patient reportedly has no known drug allergies. SOCIAL HISTORY: Notable for the patient currently residing at the [facility]. As stated above, he does [place] ve a history of alcohol, cocaine, and heroin abuse. It is unclear whether or not he is a smoker. FAMILY HISTORY: Negative for any inheritable renal or electrolyte disorders, and was otherwise nonco ntributory. On exam I saw the patient in the intensive care unit. When I saw him, he was confused and tremulous. VITAL SIGNS: Blood pressure is 93/78, with a minimum blood pressure of 76/45, and a maximum blood pr essure of 177/91. Heart rate is 95, but has ranged from the 90s to approximately 115 beats per minut e in the last 24-hour period. Oral temperature is 97.4 degrees, and the patient's temperature has ra nged from 91.9 to 98.8 degrees. Respiratory rate is 43 breaths per minute, but has been documented fr om 17-46 breaths per minute. Oxygen saturation is 77%, but has been documented from the 70s to the 9 0s percent. The patient did undergo hemodialysis earlier today at my direction, with 1500 mL having been removed. The remainder of the exam was as follows: The patient, as stated above, appear to be unkempt. He wa s normocephalic and atraumatic. He did have mild jugular venous distention. Conjunctivae were neith er pale nor icteric. He had a right internal jugular PermCath in place. LUNGS ROSA: Had coarse breath sounds when auscultated anteriorly. There was no wheezing or rhonch i. Diaphragmatic excursion, as well as airflow into both lungs rosa was bilaterally symmetrical. CARDIAC EXAMINATION: Had a regular rate and rhythm without any rubs or gallops. There were no heave s. There was a II/ systolic ejection murmur. ABDOMEN: Soft, distended with ascites, but nontender. There was hepatosplenomegaly, but there was n o rebounding, guarding, or rigidity. EXTREMITIES: Had 2+ sacral edema. NEUROLOGICALLY: The patient was tremulous and confused as stated above. VASCULAR EXAMINATION: Had no bruits. SKIN: Was somewhat thickened, but the patient had 1+ edema in all limbs. NEUROLOGICALLY: He was as stated above. LABORATORY STUDIES: White count is 9.2, H and H is 12.3/37.9, with a platelet count of 111,000. The re are 83% neutrophils, 5% lymphocytes, 12% monocytes, 1% eosinophils. ABG today is a pH of 7.40, wi th a pCO2 of 41, PaO2 of 57, and an oxygen saturation of 98%. Sodium is 140, potassium is 4.0, chlor roma 101, bicarbonate 25, BUN/creatinine is 65/9.0, with a glucose of 91. Total protein/albumin is 4. 8/2.0, such that his calcium of 6.5 corrects to 8.1. Phosphorus level was 7.8. Total bilirubin is 1 .2, AST/ALT is 54/41, alkaline phosphatase is 220, ammonia level was 19. Acetaminophen level was les s than 10. Alcohol level was also less than 10. Chest x-ray revealed new lower lobe infiltrates consistent with aspiration pneumonia. Echocardiogram was performed, and the results are pending. Blood cultures thus far have no growth to date. IMPRESSION AND PLAN: The patient is a 50-year-old gentleman with a known history of alcohol abuse, c ocaine abuse, heroin abuse, and cirrhosis, end-stage renal disease on hemodialysis every Monday, Mon, Monday via a right internal jugular PermCath at a facility in [place], [place] under the care of another chocolate packer, with his last treatment having been on 04/14, who is brought to [facility]'s Emergency Department after being found to be lethargic, with multiple bags of hero in around him and on his person. On arrival to the ED he was hypotensive and hypothermic, as well as hypoxic, and improved following a dministration of 2 doses of Narcan. With respect to the hypotension he had on arrival, this is likely secondary to his known history of c irrhosis, as well as the vasodilation that can occur with any opiate. Although the patient's calcium level is low, after correcting for his hypoalbuminemia the corrected calcium is 8.1, which would n ot be low enough to impair his cardiac output. Nonetheless, hypocalcemia, it does raise the patient' s risk of seizures, and this patient will be at an elevated risk of seizure since he will be withdraw ing off of opiates, and therefore it would be preferable if his calcium level was higher. He has bee n started on a renal diet, and I will also start him on calcium acetate 667 mg with each meal, which will both lower his phosphorus level and help reciprocally increase his calcium level as well. He wi ll need to be monitored closely for signs of withdrawal. CPK was elevated on admission, and this may have been secondary to perhaps the patient having had an unwitnessed seizure, or perhaps intramuscul ar injection of medication. We will need to continue to monitor his CPK, however, given the fact helio t the patient has end-stage renal disease, even if the CPK is elevated, he not a candidate for intrav enous fluids. If he is hypotensive, however, we can give him boluses of isotonic intravenous fluids (such as normal saline) to help maintain his blood pressure, but he should not be on standing intrave nous fluids. GI followup is appreciated, and the patient is to have a paracentesis done, and is being given antibi otics prophylactically against spontaneous bacterial peritonitis for now. He has also been started o n a proton pump inhibitor also. We will to see whether or not he requires hemodialysis tomorrow. Of note, patients with cirrhosis are prone to hypoglycemia, as are patients with end-stage renal dise ase, and we will need to monitor his fingerstick quite closely as well. Chest x-ray on presentation did reveal mild vascular congestion on a background of chronic obstructiv e pulmonary disease, and we will also need to monitor the patient's respiratory status quite closely as well. Unfortunately, we are limited in how much fluid we can remove from the patient during hemod ialysis, as he is chronically hypotensive because of his underlying cirrhosis. I will be following this complex patient closely for the above complex medical problems, and more helio n 35 minutes were spent in the care of this ICU patient today. Jose Gonzalez MD cc: [id number] TT: 04/20/2016 22:38:57 Confirmation # [id number] Dictation # [id number] jn
[2016-04-21] MEDS: Piperacillin/Tazobact 2.25gm 100 ML IVPB SCH ×2 (00:09→06:12)
[2016-04-21] MEDS ORDERED: Sodium Chloride 0.9% 1,000 ML IV STA (00:43)
[2016-04-21 00:46] LABS: ARTERIAL BLOOD GAS HCO3 23.2 mmol/L (21-28); ARTERIAL BLOOD GAS O2 CAPACITY 15.1 mL/dl (16-24); ARTERIAL BLOOD GAS O2 CONTENT 13.8 ML/dl (15-23); ARTERIAL BLOOD GAS PH 7.43 (7.35-7.45); ARTERIAL BLOOD HGB O2 SAT 90.1 % (95.0-98.0); CARBOXYHEMOGLOBIN 1.1 % (0.5-1.5); HHB 8.6 % (0-5); METHEMOGLOBIN 0.2 % (0.0-3.0)
[2016-04-21] MEDS ORDERED: Dextrose 50% SYRINGE Inj (50 ml) IVP ONE (01:30)
[2016-04-21] MEDS ORDERED: Dextrose 50% SYRINGE Inj (50 ml) ONE (01:36)
--- NOTE | 2016-04-21 03:47 | US ---
HISTORY: Leg pain and swelling. Evaluate for DVT PHYSICIAN(S): Josh Gayle MD. TECHNIQUE: Duplex sonography and color-flow Doppler with graded compression were used to evaluate the deep venous systems of both lower extremities. FINDINGS: The exam is limited by edema. The visualized deep venous systems of both lower extremities are sonographically normal and compressible. Normal wave forms and augmentation are seen. There is no sonographic evidence for deep venous thrombosis in the visualized segments of both lower extremities. There is an anechoic 3.2 x 4.2 cm fluid collection in the right groin. There is a 1.7 x 3.4 cm fluid collection in the right popliteal fossa and a bilobed 1.9 x 3.2 cm fluid collection in the left popliteal fossa. These are consistent with bilateral Calderon's cysts IMPRESSION: No sonographic evidence for deep venous thrombosis in the visualized segments of both lower extremities.
--- NOTE | 2016-04-21 04:47 | CP.PCM.CON ---
History of Present Illness - History of Present Illness History of Present Illness: SURGERY CONSULT NOTE FOR DR. HENAO 50M presents with respiratory failure after being found unconscious in a [employer] with multiple bag as of heroin surrounding him. Last time patient was conscious is unknown. Patient is currently intubated on 100%FiO2 AND 5PEEP. Patient has a right subclavian catheter used for dialysis PMH: Cocaine use, heroin use, Alcohol abuse, Liver cirrhosis, ESRD on Dialysis //monday, CAD, Hep C? PSG: CABG, Cardiac cath, Paracentesis Allergies: NKDA Past Patient History - Past Social History Smoking Status: Heavy Smoker > 10 Cigarettes Daily - CARDIAC Hx Cardiac Disorders: Yes - PULMONARY Hx Pneumonia: Yes - NEUROLOGICAL Hx Dizziness: Yes - HEENT Other/Comment: with dentures upper and lower dentures - RENAL Hx Renal Failure: Yes - HEMATOLOGICAL/ONCOLOGICAL Hx Hepatitis B: Yes - INTEGUMENTARY Other/Comment: multiple tatoos, multiple small abrasions to left forehead, ble dry scaley tight discolored skin +1 pitting edema, rred sacrum - MUSCULOSKELETAL/RHEUMATOLOGICAL Hx Arthritis: Yes - GASTROINTESTINAL Hx Gastrointestinal Disorders: Yes (umbilical hernia, ascites) Hx Liver Failure: Yes (cirrhosis) - PSYCHIATRIC Hx Substance Use: No - SURGICAL HISTORY Hx Open Heart Surgery: Yes - ANESTHESIA Hx Anesthesia: Yes Hx Anesthesia Reactions: No Hx Malignant Hyperthermia: No Meds Allergies/Adverse Reactions: Allergies Allergy/AdvReac Type Severity Reaction Status Date / Time No Known Allergies Allergy Verified 09/27/15 21:01 - Medications Medications: Current Medications Albuterol/Ipratropium (Duoneb 3 Mg/0.5 Mg (3 Ml) Ud) 3 ml IH [id number] PRN PRN Reason: Shortness of Breath Calcium Acetate (Phoslo) 667 mg PO WM SIMON Heparin Sodium (Porcine) (Heparin) 5,000 units SC Q12 SIMON PRN Reason: Protocol Last Admin: 04/20/16 21:25 Dose: Not Given Heparin Sodium (Porcine) (Heparin) 5,000 units SC Q12 SIMON PRN Reason: Protocol Ceftriaxone Sodium (Rocephin 2 Gm Ivpb) 100 mls @ 100 mls/hr IVPB DAILY SIMON PRN Reason: Protocol Last Admin: 04/20/16 11:37 Dose: 100 mls/hr Propofol (Diprivan) 100 mls @ 2.36 mls/hr IV .Q24H PRN; Protocol; 5 MCG/KG/MIN PRN Reason: TITRATE PER MD ORDER Last Titration: 04/21/16 02:30 Dose: 31.78 mcg/kg/min Piperacillin Sod/Tazobactam Sod (Zosyn 2.25 Gm In 0.9% 100 Ml) 100 mls @ 100 mls/hr IVPB Q6 SIMON PRN Reason: Protocol Stop: 04/21/16 06:59 Last Admin: 04/21/16 00:09 Dose: 100 mls/hr Norepinephrine Bitartrate 4 mg (/ Dextrose) 254 mls @ 15.24 mls/hr IV .[id number] PRN; Protocol; 4 MCG/MIN PRN Reason: TITRATE PER MD ORDER Last Titration: 04/21/16 03:55 Dose: 8 mcg/min Lactulose (Enulose) 20 gm PO BID [facility] Last Admin: 04/20/16 18:14 Dose: Not Given Midodrine (Proamatine) 10 mg PO Q12H [facility] Last Admin: 04/20/16 22:48 Dose: 10 mg Pantoprazole Sodium (Protonix Inj) 40 mg IVP DAILY [facility] Last Admin: 04/20/16 11:36 Dose: 40 mg Rifaximin (Xifaxan) 550 mg PO BID [facility] PRN Reason: Protocol Last Admin: 04/20/16 18:14 Dose: Not Given Physical Exam - Constitutional Appears: Toxic, In Acute Distress Additional comments: intubated on [id number], 5PEEP, O2 sat 70s/80s - Head Exam Head Exam: ATRAUMATIC - ENT Exam ENT Exam: Mucous Membranes Moist - Respiratory Exam Respiratory Exam: Rhonchi Additional comments: Intubated at 100%FiO2 and 5PEEP. Saturating at 70s/80s - Cardiovascular Exam Cardiovascular Exam: REGULAR RHYTHM, +S1, +S2 - GI/Abdominal Exam GI & Abdominal Exam: Soft. absent: Distended, Rigid - Extremities Exam Additional comments: edema of lower extremities, hardening of skin, Genital ulcers - Neurological Exam Additional comments: Intubated Results - Vital Signs Recent Vital Signs: Last Vital Signs Temp 97.5 F L 04/21/16 00:00 Pulse 72 04/21/16 03:15 Resp 22 04/20/16 19:25 BP 56/38 L 04/21/16 03:15 Pulse Ox 83 L 04/21/16 03:15 - Labs Result Diagrams: 04/21/16 06:00 04/20/16 07:00 Labs: Laboratory Results - last 24 hr 04/19/16 04/19/16 04/19/16 18:46 19:47 20:50 WBC RBC Hgb Hct MCV MCH MCHC RDW Plt Count MPV Gran % Lymph % (Auto) [place] % (Auto) Eos % (Auto) Baso % (Auto) Gran # Lymph # [place] # Eos # Baso # pCO2 pO2 HCO3 ABG pH ABG Total CO2 ABG O2 Saturation ABG O2 Content ABG Base Excess ABG Hemoglobin ABG Carboxyhemoglobin POC ABG HHb (Measured) ABG Methemoglobin ABG O2 Capacity Hgb O2 Saturation FiO2 Sodium Potassium Chloride Carbon Dioxide Anion Gap BUN Creatinine Est GFR ( Amer) Est GFR (Non-Af Amer) POC Glucose (mg/dL) 61 L 66 70 Random Glucose Calcium Phosphorus Magnesium Total Bilirubin AST ALT Alkaline Phosphatase Lactate Dehydrogenase Total Creatine Kinase CK-MB (CK-2) CK-MB (CK-2) % Troponin I Total Protein Albumin Globulin Albumin/Globulin Ratio 04/19/16 04/19/16 04/20/16 22:04 23:30 00:03 WBC RBC Hgb Hct MCV MCH MCHC RDW Plt Count MPV Gran % Lymph % (Auto) [place] % (Auto) Eos % (Auto) Baso % (Auto) Gran # Lymph # [place] # Eos # Baso # pCO2 pO2 HCO3 ABG pH ABG Total CO2 ABG O2 Saturation ABG O2 Content ABG Base Excess ABG Hemoglobin ABG Carboxyhemoglobin POC ABG HHb (Measured) ABG Methemoglobin ABG O2 Capacity Hgb O2 Saturation FiO2 Sodium Potassium Chloride Carbon Dioxide Anion Gap BUN Creatinine Est GFR ( Amer) Est GFR (Non-Af Amer) POC Glucose (mg/dL) 72 79 78 Random Glucose Calcium Phosphorus Magnesium Total Bilirubin AST ALT Alkaline Phosphatase Lactate Dehydrogenase Total Creatine Kinase CK-MB (CK-2) CK-MB (CK-2) % Troponin I Total Protein Albumin Globulin Albumin/Globulin Ratio 04/20/16 04/20/16 04/20/16 00:58 01:56 03:07 WBC RBC Hgb Hct MCV MCH MCHC RDW Plt Count MPV Gran % Lymph % (Auto) [place] % (Auto) Eos % (Auto) Baso % (Auto) Gran # Lymph # [place] # Eos # Baso # pCO2 pO2 HCO3 ABG pH ABG Total CO2 ABG O2 Saturation ABG O2 Content ABG Base Excess ABG Hemoglobin ABG Carboxyhemoglobin POC ABG HHb (Measured) ABG Methemoglobin ABG O2 Capacity Hgb O2 Saturation FiO2 Sodium Potassium Chloride Carbon Dioxide Anion Gap BUN Creatinine Est GFR ( Amer) Est GFR (Non-Af Amer) POC Glucose (mg/dL) 89 85 68 Random Glucose Calcium Phosphorus Magnesium Total Bilirubin AST ALT Alkaline Phosphatase Lactate Dehydrogenase Total Creatine Kinase CK-MB (CK-2) CK-MB (CK-2) % Troponin I Total Protein Albumin Globulin Albumin/Globulin Ratio 04/20/16 04/20/16 04/20/16 04:33 05:03 05:30 WBC RBC Hgb Hct MCV MCH MCHC RDW Plt Count MPV Gran % Lymph % (Auto) [place] % (Auto) Eos % (Auto) Baso % (Auto) Gran # Lymph # [place] # Eos # Baso # pCO2 pO2 HCO3 ABG pH ABG Total CO2 ABG O2 Saturation ABG O2 Content ABG Base Excess ABG Hemoglobin ABG Carboxyhemoglobin POC ABG HHb (Measured) ABG Methemoglobin ABG O2 Capacity Hgb O2 Saturation FiO2 Sodium Potassium Chloride Carbon Dioxide Anion Gap BUN Creatinine Est GFR ( Amer) Est GFR (Non-Af Amer) POC Glucose (mg/dL) 127 H 91 Random Glucose Calcium Phosphorus Magnesium Total Bilirubin AST ALT Alkaline Phosphatase Lactate Dehydrogenase 826 H Total Creatine Kinase 1031 H CK-MB (CK-2) 17.8 H CK-MB (CK-2) % 1.7 L Troponin I < 0.01 D Total Protein Albumin Globulin Albumin/Globulin Ratio 04/20/16 04/20/16 04/20/16 05:57 07:00 07:09 WBC RBC Hgb Hct MCV MCH MCHC RDW Plt Count MPV Gran % Lymph % (Auto) [place] % (Auto) Eos % (Auto) Baso % (Auto) Gran # Lymph # [place] # Eos # Baso # pCO2 pO2 HCO3 ABG pH ABG Total CO2 ABG O2 Saturation ABG O2 Content ABG Base Excess ABG Hemoglobin ABG Carboxyhemoglobin POC ABG HHb (Measured) ABG Methemoglobin ABG O2 Capacity Hgb O2 Saturation FiO2 Sodium 140 Potassium 4.0 Chloride 101 Carbon Dioxide 25 Anion Gap 18 BUN 65 H Creatinine 9.0 H* Est GFR ( Amer) 8 Est GFR (Non-Af Amer) 6 POC Glucose (mg/dL) 104 93 Random Glucose 91 Calcium 6.5 L* Phosphorus 7.8 H Magnesium 2.0 Total Bilirubin 1.2 AST 54 ALT 41 Alkaline Phosphatase 220 H Lactate Dehydrogenase Total Creatine Kinase CK-MB (CK-2) CK-MB (CK-2) % Troponin I Total Protein 4.8 L Albumin 2.0 L Globulin 2.8 Albumin/Globulin Ratio 0.7 L 04/20/16 04/20/16 04/20/16 07:59 09:45 10:20 WBC 9.2 D RBC 4.18 Hgb 12.3 L Hct 37.9 L MCV 90.7 MCH 29.4 MCHC 32.5 RDW 15.3 H Plt Count 111 L MPV 11.5 H Gran % 82.5 H Lymph % (Auto) 4.5 L [place] % (Auto) 11.9 H Eos % (Auto) 0.9 L Baso % (Auto) 0.2 Gran # 7.58 H Lymph # 0.4 L [place] # 1.1 H Eos # 0.1 Baso # 0.02 pCO2 pO2 HCO3 ABG pH ABG Total CO2 ABG O2 Saturation ABG O2 Content ABG Base Excess ABG Hemoglobin ABG Carboxyhemoglobin POC ABG HHb (Measured) ABG Methemoglobin ABG O2 Capacity Hgb O2 Saturation FiO2 Sodium Potassium Chloride Carbon Dioxide Anion Gap BUN Creatinine Est GFR ( Amer) Est GFR (Non-Af Amer) POC Glucose (mg/dL) 98 81 Random Glucose Calcium Phosphorus Magnesium Total Bilirubin AST ALT Alkaline Phosphatase Lactate Dehydrogenase Total Creatine Kinase CK-MB (CK-2) CK-MB (CK-2) % Troponin I Total Protein Albumin Globulin Albumin/Globulin Ratio 04/20/16 04/20/16 04/20/16 11:09 11:57 12:53 WBC RBC Hgb Hct MCV MCH MCHC RDW Plt Count MPV Gran % Lymph % (Auto) [place] % (Auto) Eos % (Auto) Baso % (Auto) Gran # Lymph # [place] # Eos # Baso # pCO2 pO2 HCO3 ABG pH ABG Total CO2 ABG O2 Saturation ABG O2 Content ABG Base Excess ABG Hemoglobin ABG Carboxyhemoglobin POC ABG HHb (Measured) ABG Methemoglobin ABG O2 Capacity Hgb O2 Saturation FiO2 Sodium Potassium Chloride Carbon Dioxide Anion Gap BUN Creatinine Est GFR ( Amer) Est GFR (Non-Af Amer) POC Glucose (mg/dL) 79 84 105 Random Glucose Calcium Phosphorus Magnesium Total Bilirubin AST ALT Alkaline Phosphatase Lactate Dehydrogenase Total Creatine Kinase CK-MB (CK-2) CK-MB (CK-2) % Troponin I Total Protein Albumin Globulin Albumin/Globulin Ratio 04/20/16 04/20/16 04/20/16 13:02 13:51 14:58 WBC RBC Hgb Hct MCV MCH MCHC RDW Plt Count MPV Gran % Lymph % (Auto) [place] % (Auto) Eos % (Auto) Baso % (Auto) Gran # Lymph # [place] # Eos # Baso # pCO2 44 pO2 44.0 L* HCO3 26.0 ABG pH 7.38 ABG Total CO2 27.4 ABG O2 Saturation 76.3 L ABG O2 Content 14.6 L ABG Base Excess 0.5 ABG Hemoglobin 13.8 ABG Carboxyhemoglobin 0.9 POC ABG HHb (Measured) 23.4 H ABG Methemoglobin 0.3 ABG O2 Capacity 19.1 Hgb O2 Saturation 75.3 L FiO2 100.0 Sodium Potassium Chloride Carbon Dioxide Anion Gap BUN Creatinine Est GFR ( Amer) Est GFR (Non-Af Amer) POC Glucose (mg/dL) 86 79 Random Glucose Calcium Phosphorus Magnesium Total Bilirubin AST ALT Alkaline Phosphatase Lactate Dehydrogenase Total Creatine Kinase CK-MB (CK-2) CK-MB (CK-2) % Troponin I Total Protein Albumin Globulin Albumin/Globulin Ratio 04/20/16 04/20/16 04/20/16 16:01 17:49 21:49 WBC RBC Hgb Hct MCV MCH MCHC RDW Plt Count MPV Gran % Lymph % (Auto) [place] % (Auto) Eos % (Auto) Baso % (Auto) Gran # Lymph # [place] # Eos # Baso # pCO2 41 pO2 57.0 L HCO3 25.4 ABG pH 7.40 ABG Total CO2 26.7 ABG O2 Saturation 90.0 L ABG O2 Content 15.2 ABG Base Excess 0.5 ABG Hemoglobin 12.1 ABG Carboxyhemoglobin 0.8 POC ABG HHb (Measured) 9.9 H ABG Methemoglobin 0.0 ABG O2 Capacity 16.9 Hgb O2 Saturation 89.3 L FiO2 100.0 Sodium Potassium Chloride Carbon Dioxide Anion Gap BUN Creatinine Est GFR ( Amer) Est GFR (Non-Af Amer) POC Glucose (mg/dL) 66 64 L Random Glucose Calcium Phosphorus Magnesium Total Bilirubin AST ALT Alkaline Phosphatase Lactate Dehydrogenase Total Creatine Kinase CK-MB (CK-2) CK-MB (CK-2) % Troponin I Total Protein Albumin Globulin Albumin/Globulin Ratio 04/20/16 04/21/16 04/21/16 23:48 00:30 01:32 WBC RBC Hgb Hct MCV MCH MCHC RDW Plt Count MPV Gran % Lymph % (Auto) [place] % (Auto) Eos % (Auto) Baso % (Auto) Gran # Lymph # [place] # Eos # Baso # pCO2 35 pO2 57.0 L HCO3 23.2 ABG pH 7.43 ABG Total CO2 24.3 ABG O2 Saturation 91.3 L ABG O2 Content 13.8 L ABG Base Excess -0.8 ABG Hemoglobin 10.9 L ABG Carboxyhemoglobin 1.1 POC ABG HHb (Measured) 8.6 H ABG Methemoglobin 0.2 ABG O2 Capacity 15.1 L Hgb O2 Saturation 90.1 L FiO2 100.0 Sodium Potassium Chloride Carbon Dioxide Anion Gap BUN Creatinine Est GFR ( Amer) Est GFR (Non-Af Amer) POC Glucose (mg/dL) 56 L 62 L Random Glucose Calcium Phosphorus Magnesium Total Bilirubin AST ALT Alkaline Phosphatase Lactate Dehydrogenase Total Creatine Kinase CK-MB (CK-2) CK-MB (CK-2) % Troponin I Total Protein Albumin Globulin Albumin/Globulin Ratio Assessment & Plan - Assessment and Plan (Free Text) Assessment: 50M presents with respiratory failure likely 2/2 overdose, complicated by fluid collections in the lung CT Chest- Large loculated right pleural effusion and smaller left pleural effusion with complete atelectasis of bilateral lower lobes which has progressed compared with CT from . Large volume of ascites in visualized upper abdomen. Plan: - Continue ICU management - IR consulted - pleural effusions/ascites - Re-evaluated patient status later today after IR eval Further recs discuss with Dr. Sebastián Soto, PGY1
[2016-04-21 06:12] LABS: ADD MANUAL DIFF? NO
[2016-04-21 06:17] LABS: BASO # 0.04 K/mm3 (0.0-2.0); BASO % 0.4 % (0.0-3.0); EOS # 0.1 (0.0-0.7); EOS % 1.2 % (1.5-5.0); GRAN % 80.1 % (50.0-68.0); HEMATOCRIT 36.2 % (42.0-52.0); LYMPH # 0.5 (1.2-3.4); MEAN CELL VOLUME 92.6 fL (80.0-105.0); MEAN CORPUSCULAR HEMOGLOBIN 29.4 pg (25.0-35.0); MEAN CORPUSCULAR HGB CONC 31.8 g/dl (31.0-37.0); MEAN PLATELET VOLUME 12.4 fl (7.0-11.0); MONO # 1.2 (0.1-0.6); MONO % 13.3 % (1.0-6.0); PLATELET COUNT 101 10^3/uL (120.0-450.0); RED CELL DISTRIBUTION WIDTH 15.6 % (11.5-14.5); WHITE BLOOD COUNT 9.2 10^3/ul (4.5-11.0)
--- NOTE | 2016-04-21 06:41 | CP.PCM.PN ---
Subjective - Date & Time of Evaluation Date of Evaluation: 04/21/16 Time of Evaluation: 03:45 - Subjective Subjective: OVERNIGHT EVENTS: At around 6:45pm, the patient developed acute hypoxic respiratory distress, requiring intubation. CT-angio of chest was done which ruled out acute PE (and therefore empiric Heparin drip was stopped) as possible etiology. However, the CT did show a large new right-sided loculated pleural effusion and complete bilateral lower atlectasis and this is presumed to be underlying etiology of acute respiratory failure. Through the night, despite being on 100% FIO2, the patient intermittently became hypoxic (as low as 60's), as well as intermittently hypotensive (SBP also as low as 60's). A stat ABG was done which showed a pH of 7.43 but PO2 of 57. Therefore, surgery was consulted to evaluate for possible urgent chest tube (or pleural cath) placement (since urgent thoracentesis very unlikely overnight). In addition, a Left IJ central line was attempted but was unsuccessful (attempted by surgery resident as well as myself) . Femoral central lines were not option due to patient's anasarca. Consequently , Levophed drip was started using the patient's right subclavian central venous catheter (as a temporary solution). In the event that surgery is unable to place an urgent chest tube overnight, an IR consult has been placed (for diagnostic and therapeutic right-sided thoracentesis), which should hopefully resolve the patient's hypoxia. Also, empiric IV Zosyn was started for the loculated pleural effusion. Objective - Vital Signs/Intake and Output Vital Signs (last 24 hours): Temp Pulse Resp BP Pulse Ox 97.5 F L 72 22 56/38 L 83 L 04/21/16 00:00 04/21/16 03:15 04/20/16 19:25 04/21/16 03:15 04/21/16 03:15 Intake and Output: 04/20/16 04/21/16 18:59 06:59 Intake Total 220 0 Output Total 1000 Balance -780 0 - Medications Medications: Current Medications Albuterol/Ipratropium (Duoneb 3 Mg/0.5 Mg (3 Ml) Ud) 3 ml IH [id number] PRN PRN Reason: Shortness of Breath Calcium Acetate (Phoslo) 667 mg PO WM SIMON Heparin Sodium (Porcine) (Heparin) 5,000 units SC Q12 SIMON PRN Reason: Protocol Last Admin: 04/20/16 21:25 Dose: Not Given Heparin Sodium (Porcine) (Heparin) 5,000 units SC Q12 SIMON PRN Reason: Protocol Ceftriaxone Sodium (Rocephin 2 Gm Ivpb) 100 mls @ 100 mls/hr IVPB DAILY SIMON PRN Reason: Protocol Last Admin: 04/20/16 11:37 Dose: 100 mls/hr Propofol (Diprivan) 100 mls @ 2.36 mls/hr IV .Q24H PRN; Protocol; 5 MCG/KG/MIN PRN Reason: TITRATE PER MD ORDER Last Titration: 04/21/16 06:22 Dose: 31.78 mcg/kg/min Piperacillin Sod/Tazobactam Sod (Zosyn 2.25 Gm In 0.9% 100 Ml) 100 mls @ 100 mls/hr IVPB Q6 SIMON PRN Reason: Protocol Stop: 04/21/16 06:59 Last Admin: 04/21/16 06:12 Dose: 100 mls/hr Norepinephrine Bitartrate 4 mg (/ Dextrose) 254 mls @ 15.24 mls/hr IV .[id number] PRN; Protocol; 4 MCG/MIN PRN Reason: TITRATE PER MD ORDER Last Titration: 04/21/16 03:55 Dose: 8 mcg/min Lactulose (Enulose) 20 gm PO BID [facility] Last Admin: 04/20/16 18:14 Dose: Not Given Midodrine (Proamatine) 10 mg PO Q12H [facility] Last Admin: 04/20/16 22:48 Dose: 10 mg Pantoprazole Sodium (Protonix Inj) 40 mg IVP DAILY [facility] Last Admin: 04/20/16 11:36 Dose: 40 mg Rifaximin (Xifaxan) 550 mg PO BID [facility] PRN Reason: Protocol Last Admin: 04/20/16 18:14 Dose: Not Given - Labs Labs: 04/20/16 10:20 04/20/16 07:00 PT 12.4 Seconds (9.9-11.8) H 04/19/16 12:56 INR 1.15 (0.93-1.08) H 04/19/16 12:56 APTT 27.3 Seconds (23.7-30.8) 04/19/16 12:56
[2016-04-21 06:51] LABS: ALB/GLOB RATIO 0.7 (1.1-1.8); MAGNESIUM 1.8 mg/dL (1.7-2.2); PHOSPHOROUS 5.1 mg/dL (2.5-4.5); POTASSIUM 3.3 mmol/L (3.6-5.0); TOTAL PROTEIN 3.9 g/dL (5.8-8.3)
[2016-04-21 07:16] LABS: CALCIUM 5.5 mg/dL (8.4-10.5)
[2016-04-21] MEDS ORDERED: Potassium Chloride 10 mEq 100 ML IVPB SCH (07:30)
[2016-04-21] MEDS ORDERED: Vancomycin 1gm in NS 250ml 250 ML IVPB STA ×2 (08:13→13:32)
--- NOTE | 2016-04-21 08:43 | CP.PCM.CON ---
History of Present Illness - History of Present Illness History of Present Illness: 49 year old male with PMH of CAD S/P CABG, ESRD on HD, history of lymphadenopathy was found unconscious at the [facility] with heroin bags surrounding him. He was brought in by EMS to [facility] still unconscious, hypothermic. He was immediately intubated and sent to the ICU. He continues to be on the ventilator and hypoxia and was found to have infiltrates in his lungs on CXR. Also, there is note of possible loculated effusion in the lungs. He is now also on pressors. Infectious Diseases consult is requested to further evaluate and manage. Currently he is on the ventilator, on vasopressors, not responding to verbal or tactile stimuli, with some degree of hypoxia. Social History: The patient is apparently homeless, and lives at the [facility]. He has a significant smoking history, has been a chronic alcohol drinker and uses heroin and cocaine Review of Systems - Review of Systems Systems not reviewed;Unavailable: Altered Mental Status Past Patient History - Past Social History Smoking Status: Heavy Smoker > 10 Cigarettes Daily - CARDIAC Hx Cardiac Disorders: Yes - PULMONARY Hx Pneumonia: Yes - NEUROLOGICAL Hx Dizziness: Yes - HEENT Other/Comment: with dentures upper and lower dentures - RENAL Hx Renal Failure: Yes - HEMATOLOGICAL/ONCOLOGICAL Hx Hepatitis B: Yes - INTEGUMENTARY Other/Comment: multiple tatoos, multiple small abrasions to left forehead, ble dry scaley tight discolored skin +1 pitting edema, rred sacrum - MUSCULOSKELETAL/RHEUMATOLOGICAL Hx Arthritis: Yes - GASTROINTESTINAL Hx Gastrointestinal Disorders: Yes (umbilical hernia, ascites) Hx Liver Failure: Yes (cirrhosis) - PSYCHIATRIC Hx Substance Use: No - SURGICAL HISTORY Hx Open Heart Surgery: Yes - ANESTHESIA Hx Anesthesia: Yes Hx Anesthesia Reactions: No Hx Malignant Hyperthermia: No Meds Allergies/Adverse Reactions: Allergies Allergy/AdvReac Type Severity Reaction Status Date / Time No Known Allergies Allergy Verified 09/27/15 21:01 - Medications Medications: Current Medications Albuterol/Ipratropium (Duoneb 3 Mg/0.5 Mg (3 Ml) Ud) 3 ml IH [id number] PRN PRN Reason: Shortness of Breath Calcium Acetate (Phoslo) 667 mg PO WM SIMON Heparin Sodium (Porcine) (Heparin) 5,000 units SC Q12 SIMON PRN Reason: Protocol Last Admin: 04/20/16 21:25 Dose: Not Given Heparin Sodium (Porcine) (Heparin) 5,000 units SC Q12 SIMON PRN Reason: Protocol Propofol (Diprivan) 100 mls @ 2.36 mls/hr IV .Q24H PRN; Protocol; 5 MCG/KG/MIN PRN Reason: TITRATE PER MD ORDER Last Titration: 04/21/16 06:22 Dose: 31.78 mcg/kg/min Norepinephrine Bitartrate 4 mg (/ Dextrose) 254 mls @ 15.24 mls/hr IV .[id number] PRN; Protocol; 4 MCG/MIN PRN Reason: TITRATE PER MD ORDER Last Titration: 04/21/16 03:55 Dose: 8 mcg/min Meropenem 500 mg/ Sodium (Chloride) 100 mls @ 100 mls/hr IVPB Q12 SIMON PRN Reason: Protocol Stop: 04/28/16 10:01 Lactulose (Enulose) 20 gm PO BID [facility] Last Admin: 04/20/16 18:14 Dose: Not Given Midodrine (Proamatine) 10 mg PO Q12H [facility] Last Admin: 04/20/16 22:48 Dose: 10 mg Pantoprazole Sodium (Protonix Inj) 40 mg IVP DAILY [facility] Last Admin: 04/20/16 11:36 Dose: 40 mg Rifaximin (Xifaxan) 550 mg PO BID SIMON PRN Reason: Protocol Last Admin: 04/20/16 18:14 Dose: Not Given Physical Exam - Constitutional Appears: Other (Intubated, hypoxic on vasopressors) - Head Exam Head Exam: NORMAL INSPECTION - ENT Exam Additional comments: Et tube in place - Neck Exam Neck exam: Negative for: Lymphadenopathy, Meningismus - Respiratory Exam Respiratory Exam: Decreased Breath Sounds Additional comments: harsh breath sounds bilaterally, right anterior chest wall HD catheter site intact - Cardiovascular Exam Cardiovascular Exam: +S1, +S2 - GI/Abdominal Exam GI & Abdominal Exam: Soft. absent: Tenderness Results - Vital Signs Recent Vital Signs: Last Vital Signs Temp 97.5 F L 04/21/16 00:00 Pulse 72 04/21/16 03:15 Resp 16 04/21/16 07:28 BP 56/38 L 04/21/16 03:15 Pulse Ox 87 L 04/21/16 07:28 - Labs Result Diagrams: 04/21/16 06:00 04/21/16 06:00 Labs: Laboratory Results - last 24 hr 04/20/16 04/20/16 04/20/16 07:00 07:09 07:59 WBC RBC Hgb Hct MCV MCH MCHC RDW Plt Count MPV Gran % Lymph % (Auto) [place] % (Auto) Eos % (Auto) Baso % (Auto) Gran # Lymph # [place] # Eos # Baso # APTT pCO2 pO2 HCO3 ABG pH ABG Total CO2 ABG O2 Saturation ABG O2 Content ABG Base Excess ABG Hemoglobin ABG Carboxyhemoglobin POC ABG HHb (Measured) ABG Methemoglobin ABG O2 Capacity Hgb O2 Saturation FiO2 Sodium 140 Potassium 4.0 Chloride 101 Carbon Dioxide 25 Anion Gap 18 BUN 65 H Creatinine 9.0 H* Est GFR ( Amer) 8 Est GFR (Non-Af Amer) 6 POC Glucose (mg/dL) 93 98 Random Glucose 91 Calcium 6.5 L* Phosphorus 7.8 H Magnesium 2.0 Total Bilirubin 1.2 AST 54 ALT 41 Alkaline Phosphatase 220 H Total Protein 4.8 L Albumin 2.0 L Globulin 2.8 Albumin/Globulin Ratio 0.7 L 04/20/16 04/20/16 04/20/16 09:45 10:20 11:09 WBC 9.2 D RBC 4.18 Hgb 12.3 L Hct 37.9 L MCV 90.7 MCH 29.4 MCHC 32.5 RDW 15.3 H Plt Count 111 L MPV 11.5 H Gran % 82.5 H Lymph % (Auto) 4.5 L [place] % (Auto) 11.9 H Eos % (Auto) 0.9 L Baso % (Auto) 0.2 Gran # 7.58 H Lymph # 0.4 L [place] # 1.1 H Eos # 0.1 Baso # 0.02 APTT pCO2 pO2 HCO3 ABG pH ABG Total CO2 ABG O2 Saturation ABG O2 Content ABG Base Excess ABG Hemoglobin ABG Carboxyhemoglobin POC ABG HHb (Measured) ABG Methemoglobin ABG O2 Capacity Hgb O2 Saturation FiO2 Sodium Potassium Chloride Carbon Dioxide Anion Gap BUN Creatinine Est GFR ( Amer) Est GFR (Non-Af Amer) POC Glucose (mg/dL) 81 79 Random Glucose Calcium Phosphorus Magnesium Total Bilirubin AST ALT Alkaline Phosphatase Total Protein Albumin Globulin Albumin/Globulin Ratio 04/20/16 04/20/16 04/20/16 11:57 12:53 13:02 WBC RBC Hgb Hct MCV MCH MCHC RDW Plt Count MPV Gran % Lymph % (Auto) [place] % (Auto) Eos % (Auto) Baso % (Auto) Gran # Lymph # [place] # Eos # Baso # APTT pCO2 44 pO2 44.0 L* HCO3 26.0 ABG pH 7.38 ABG Total CO2 27.4 ABG O2 Saturation 76.3 L ABG O2 Content 14.6 L ABG Base Excess 0.5 ABG Hemoglobin 13.8 ABG Carboxyhemoglobin 0.9 POC ABG HHb (Measured) 23.4 H ABG Methemoglobin 0.3 ABG O2 Capacity 19.1 Hgb O2 Saturation 75.3 L FiO2 100.0 Sodium Potassium Chloride Carbon Dioxide Anion Gap BUN Creatinine Est GFR ( Amer) Est GFR (Non-Af Amer) POC Glucose (mg/dL) 84 105 Random Glucose Calcium Phosphorus Magnesium Total Bilirubin AST ALT Alkaline Phosphatase Total Protein Albumin Globulin Albumin/Globulin Ratio 04/20/16 04/20/16 04/20/16 13:51 14:58 16:01 WBC RBC Hgb Hct MCV MCH MCHC RDW Plt Count MPV Gran % Lymph % (Auto) [place] % (Auto) Eos % (Auto) Baso % (Auto) Gran # Lymph # [place] # Eos # Baso # APTT pCO2 pO2 HCO3 ABG pH ABG Total CO2 ABG O2 Saturation ABG O2 Content ABG Base Excess ABG Hemoglobin ABG Carboxyhemoglobin POC ABG HHb (Measured) ABG Methemoglobin ABG O2 Capacity Hgb O2 Saturation FiO2 Sodium Potassium Chloride Carbon Dioxide Anion Gap BUN Creatinine Est GFR ( Amer) Est GFR (Non-Af Amer) POC Glucose (mg/dL) 86 79 66 Random Glucose Calcium Phosphorus Magnesium Total Bilirubin AST ALT Alkaline Phosphatase Total Protein Albumin Globulin Albumin/Globulin Ratio 04/20/16 04/20/16 04/20/16 17:49 21:49 23:48 WBC RBC Hgb Hct MCV MCH MCHC RDW Plt Count MPV Gran % Lymph % (Auto) [place] % (Auto) Eos % (Auto) Baso % (Auto) Gran # Lymph # [place] # Eos # Baso # APTT pCO2 41 pO2 57.0 L HCO3 25.4 ABG pH 7.40 ABG Total CO2 26.7 ABG O2 Saturation 90.0 L ABG O2 Content 15.2 ABG Base Excess 0.5 ABG Hemoglobin 12.1 ABG Carboxyhemoglobin 0.8 POC ABG HHb (Measured) 9.9 H ABG Methemoglobin 0.0 ABG O2 Capacity 16.9 Hgb O2 Saturation 89.3 L FiO2 100.0 Sodium Potassium Chloride Carbon Dioxide Anion Gap BUN Creatinine Est GFR ( Amer) Est GFR (Non-Af Amer) POC Glucose (mg/dL) 64 L 56 L Random Glucose Calcium Phosphorus Magnesium Total Bilirubin AST ALT Alkaline Phosphatase Total Protein Albumin Globulin Albumin/Globulin Ratio 04/21/16 04/21/16 04/21/16 00:30 01:32 06:00 WBC 9.2 RBC 3.91 Hgb 11.5 L Hct 36.2 L MCV 92.6 MCH 29.4 MCHC 31.8 RDW 15.6 H Plt Count 101 L MPV 12.4 H Gran % 80.1 H Lymph % (Auto) 5.0 L [place] % (Auto) 13.3 H Eos % (Auto) 1.2 L Baso % (Auto) 0.4 Gran # 7.40 H Lymph # 0.5 L [place] # 1.2 H Eos # 0.1 Baso # 0.04 APTT 32.2 H pCO2 35 pO2 57.0 L HCO3 23.2 ABG pH 7.43 ABG Total CO2 24.3 ABG O2 Saturation 91.3 L ABG O2 Content 13.8 L ABG Base Excess -0.8 ABG Hemoglobin 10.9 L ABG Carboxyhemoglobin 1.1 POC ABG HHb (Measured) 8.6 H ABG Methemoglobin 0.2 ABG O2 Capacity 15.1 L Hgb O2 Saturation 90.1 L FiO2 100.0 Sodium 138 Potassium 3.3 L Chloride 104 Carbon Dioxide 25 Anion Gap 12 BUN 35 H Creatinine 5.5 H Est GFR ( Amer) 13 Est GFR (Non-Af Amer) 11 POC Glucose (mg/dL) 62 L Random Glucose 89 Calcium 5.5 L* Phosphorus 5.1 H Magnesium 1.8 Total Bilirubin 1.0 AST 43 ALT 35 Alkaline Phosphatase 167 H Total Protein 3.9 L Albumin 1.6 L Globulin 2.3 Albumin/Globulin Ratio 0.7 L Assessment & Plan - Assessment and Plan (Free Text) Plan: Assessment Septic shock with multiorgan dysfunction syndrome (MODS) with acute toxic- metabolic encephalopathy, chronic renal failure, hypoxic ventilator-dependent respiratory failure with severe healthcare-associated aspiration pneumonia with pleural effusion R/O empyema in a patient who possibly overdosed on heroin CAD S/P CABG ESRD on HD history of lymphadenopathy Plan Will start intermittent Vancomycin IV and start Meropenem pending sputum cx, final blood cx results; reviewed CXR and will await CT chest results Discussed with Dr. Nava - patient has possible empyema and we are awaiting Surgery to place Chest tube or plan for VATS Overall prognosis is poor
--- NOTE | 2016-04-21 09:34 | PCM.PROC ---
Procedures Attestation:: I certify that I have explained the specified Operation(s) or Procedure(s), risks, benefits and reasonable alternatives to the Patient and/or other person responsible. The opportunity was given to ask questions and all questions answered - Chest Tube Chest Tube Location: Mid-Axillary Left Size of Tube (cm): 36 Chest Tube Procedure: Chlorhexidine Tube Sutured to Skin: Yes Sterile Dressing Applied: Yes Anesthesia: Lidocaine 1% Volume Anesthetic (mls): 20 Incision Made With: #11 blade Post Procedure: sutured to skin, sterile dressing applied [place] of [place]: Yes Tube Drainage: fluid Amount of Initial Drainage: 750 Post Procedure CXR?: Yes Patient Tolerated Procedure: Yes
--- NOTE | 2016-04-21 09:59 | CT ---
PROCEDURE: CT Chest with contrast (Pulmonary Angiogram) HISTORY: r/o pe COMPARISON: None available. TECHNIQUE: Axial computed tomography images were obtained of the chest in the pulmonary arterial phase of enhancement. Coronal and sagittal reformatted images were created and reviewed. Intravenous contrast dose: 100 mL Visipaque 320 Radiation dose: Total exam DLP = 647.04 mGy-cm. FINDINGS: PULMONARY ARTERIES: The examination is technically limited. No central pulmonary embolism identified. Right lobar and bilateral segmental and subsegmental branches are inadequately evaluated on the basis of this examination. . AORTA: No acute findings. No thoracic aortic aneurysm. LUNGS: Bilateral lower lobe atelectasis likely secondary to pleural effusions. PLEURAL SPACES: Large right pleural effusion and moderate left pleural effusion. Right pleural effusion extends to lung apex. HEART: Normal heart size. Right internal jugular central venous catheter. Endotracheal tube terminates less than 1 cm above tracheal kilo and should be repositioned. Left subclavian/ axillary/ brachials venous stent noted. LYMPH NODES: Evaluation limited. No evidence of significant mediastinal lymphadenopathy. BONES, CHEST WALL: Unremarkable. No fracture or destructive lesion OTHER FINDINGS: Ascites. IMPRESSION: Limited examination. No large central pulmonary embolism. Bilateral pleural effusion, right greater than left. Bilateral lower lobe atelectasis likely secondary to pleural effusion. Endotracheal tube terminates close to tracheal kilo. This should be repositioned more proximally. Left subclavian vascular stent. Ascites. Preliminary interpretation of this examination was reported by [facility] at 10:16 p.m. on 04/20/2016. There is concurrence of this report with the preliminary interpretation.
--- NOTE | 2016-04-21 10:13 | CP.CCUPN ---
<Adela Foreman - Last Filed: 04/21/16 12:37> CCU Subjective - Physician Review Subjective (Free Text): PGY-1 ICU progress note. Patient seen and examined at bedside. Patient is lightly sedated and intubated. Yesterday evening patient intubated for hypoxemic respiratory failure and failure of bipap was taken for CTA which showed loculated plural effusion, no PE. This morning patient's bp continues to be low, and respiration is falling into the 80s. Nurse reports that overnight norepi was started. CCU Objective - Vital Signs / Intake & Output Vital Signs (Last 4 hours): Vital Signs Resp Pulse Ox 04/21/16 07:28 16 87 L Intake and Output (Last 8hrs): Intake & Output 04/20/16 04/21/16 04/21/16 22:59 06:59 14:59 Intake Total 220 289 Output Total 1000 0 Balance -780 289 Intake: IV 289 RIGHT FOREARM 289 Oral 120 Other 100 Output: Urine 0 0 Urine, Voided 0 0 Other 1000 Other: # Bowel Movements 0 - Physical Exam Head: Positive for: Atraumatic, Normocephalic Extroacular Muscles: Positive for: EOMI Conjunctiva: Positive for: Normal Mouth: Positive for: Dry Respiratory/Chest: Positive for: Decreased Breath Sounds, Rhonchi, Other ( intubated fio2 100%, peep 8, rate 15, tidal vol 400). Negative for: Accessory Muscle Use Cardiovascular: Positive for: Regular Rate and Rhythm, Normal S1, S2. Negative for: Murmurs Abdomen: Positive for: Distention, Normal Bowel Sounds. Negative for: Tenderness, Peritoneal Signs Upper Extremity: Positive for: Normal Inspection, Other (tremors of upper and lower extremties ). Negative for: Cyanosis, Edema Lower Extremity: Positive for: Normal Inspection. Negative for: Edema, CALF TENDERNESS Neurological: Positive for: CN II-XII Intact. Negative for: Speech Normal Skin: Positive for: Warm, Dry, Normal Color. Negative for: Rashes Psychiatric: Positive for: Alert. Negative for: Oriented x 3 - Medications Active Medications: Active Medications Generic Name Dose Route Start Last Admin Trade Name Freq PRN Reason Stop Dose Admin Albuterol/Ipratropium 3 ml 04/20/16 13:13 Duoneb 3 Mg/0.5 Mg (3 Ml) Ud IH [id number] PRN Shortness of Breath Calcium Acetate 667 mg 04/21/16 08:00 Phoslo PO WM SIMON Heparin Sodium (Porcine) 5,000 units 04/20/16 10:00 04/20/16 21:25 Heparin SC Not Given Q12 SIMON Protocol Heparin Sodium (Porcine) 5,000 units 04/21/16 10:00 Heparin SC Q12 SIMON Protocol Propofol 100 mls @ 2.36 mls/hr 04/20/16 19:13 04/21/16 06:22 Diprivan IV 31.78 mcg/kg/min .Q24H PRN Titration TITRATE PER MD ORDER Protocol 5 MCG/KG/MIN Norepinephrine Bitartrate 4 mg 254 mls @ 15.24 mls/hr 04/21/16 03:07 04/21/16 03:55 / Dextrose IV 8 mcg/min .[id number] PRN Titration TITRATE PER MD ORDER Protocol 4 MCG/MIN Meropenem 500 mg/ Sodium 100 mls @ 100 mls/hr 04/21/16 10:00 Chloride IVPB 04/28/16 10:01 Q12 SIMON Protocol Phenylephrine HCl 40 mg/ 254 mls @ 38.1 mls/hr 04/21/16 08:30 Sodium Chloride IV .Q6H40M PRN TITRATE PER MD ORDER Protocol 100 MCG/MIN Vasopressin 20 units/ Sodium 101 mls @ 9.09 mls/hr 04/21/16 08:30 Chloride IV .Q11H7M SIMON Protocol 0.03 U/MIN Lactulose 20 gm 04/19/16 18:00 04/20/16 18:14 Enulose PO Not Given BID [facility] Lorazepam 2 mg 04/21/16 08:41 04/21/16 08:50 Ativan IVP 2 mg Q2H PRN Administration Agitation Protocol Midodrine 10 mg 04/20/16 22:00 04/20/16 22:48 Proamatine PO 10 mg Q12H SIMON Administration Morphine Sulfate 2 mg 04/21/16 08:41 Morphine IVP Q4H PRN Pain, moderate (4-7) Pantoprazole Sodium 40 mg 04/20/16 10:00 04/20/16 11:36 Protonix Inj IVP 40 mg DAILY SIMON Administration Rifaximin 550 mg 04/19/16 18:00 04/20/16 18:14 Xifaxan PO Not Given BID [facility] Protocol - Patient Studies Lab Studies: Microbiology Studies 04/19/16 17:25 MRSA Culture (Admit) - Final Naris MRSA NOT DETECTED Lab Studies 04/21/16 04/21/16 04/21/16 Range/Units 06:00 01:32 00:30 WBC 9.2 (4.5-11.0) 10^3/ul RBC 3.91 (3.5-6.1) 10^6/uL Hgb 11.5 L (14.0-18.0) gm/dL Hct 36.2 L (42.0-52.0) % MCV 92.6 (80.0-105.0) fL MCH 29.4 (25.0-35.0) pg MCHC 31.8 (31.0-37.0) g/dl RDW 15.6 H (11.5-14.5) % Plt Count 101 L (120.0-450.0) 10^3/uL MPV 12.4 H (7.0-11.0) fl Gran % 80.1 H (50.0-68.0) % Lymph % (Auto) 5.0 L (22.0-35.0) % [place] % (Auto) 13.3 H (1.0-6.0) % Eos % (Auto) 1.2 L (1.5-5.0) % Baso % (Auto) 0.4 (0.0-3.0) % Gran # 7.40 H (1.4-6.5) Lymph # 0.5 L (1.2-3.4) [place] # 1.2 H (0.1-0.6) Eos # 0.1 (0.0-0.7) Baso # 0.04 (0.0-2.0) K/mm3 APTT 32.2 H (23.7-30.8) Seconds pCO2 35 (35-45) mm/Hg pO2 57.0 L (80-100) mm/Hg HCO3 23.2 (21-28) mmol/L ABG pH 7.43 (7.35-7.45) ABG Total CO2 24.3 (22-28) mmol.L ABG O2 Saturation 91.3 L (95-98) % ABG O2 Content 13.8 L (15-23) ML/dl ABG Base Excess -0.8 (-2.0-3.0) mmol/L ABG Hemoglobin 10.9 L (11.7-17.4) g/dL ABG Carboxyhemoglobin 1.1 (0.5-1.5) % POC ABG HHb (Measured) 8.6 H (0-5) % ABG Methemoglobin 0.2 (0.0-3.0) % ABG O2 Capacity 15.1 L (16-24) mL/dl Hgb O2 Saturation 90.1 L (95.0-98.0) % FiO2 100.0 % Sodium 138 (132-148) mmol/L Potassium 3.3 L (3.6-5.0) mmol/L Chloride 104 (98-107) mmol/L Carbon Dioxide 25 (21-33) mmol/L Anion Gap 12 (10-20) BUN 35 H (7-21) mg/dL Creatinine 5.5 H (0.5-1.4) mg/dL Est GFR ( Amer) 13 Est GFR (Non-Af Amer) 11 POC Glucose (mg/dL) 62 L (65-110) mg/dL Random Glucose 89 (70-110) mg/dL Calcium 5.5 L* (8.4-10.5) mg/dL Phosphorus 5.1 H (2.5-4.5) mg/dL Magnesium 1.8 (1.7-2.2) mg/dL Total Bilirubin 1.0 (0.2-1.3) mg/dL AST 43 (15-59) U/L ALT 35 (7-56) U/L Alkaline Phosphatase 167 H (38-133) U/L Total Protein 3.9 L (5.8-8.3) g/dL Albumin 1.6 L (3.0-4.8) g/dL Globulin 2.3 gm/dL Albumin/Globulin Ratio 0.7 L (1.1-1.8) 04/20/16 04/20/16 04/20/16 Range/Units 23:48 21:49 17:49 WBC (4.5-11.0) 10^3/ul RBC (3.5-6.1) 10^6/uL Hgb (14.0-18.0) gm/dL Hct (42.0-52.0) % MCV (80.0-105.0) fL MCH (25.0-35.0) pg MCHC (31.0-37.0) g/dl RDW (11.5-14.5) % Plt Count (120.0-450.0) 10^3/uL MPV (7.0-11.0) fl Gran % (50.0-68.0) % Lymph % (Auto) (22.0-35.0) % [place] % (Auto) (1.0-6.0) % Eos % (Auto) (1.5-5.0) % Baso % (Auto) (0.0-3.0) % Gran # (1.4-6.5) Lymph # (1.2-3.4) [place] # (0.1-0.6) Eos # (0.0-0.7) Baso # (0.0-2.0) K/mm3 APTT (23.7-30.8) Seconds pCO2 41 (35-45) mm/Hg pO2 57.0 L (80-100) mm/Hg HCO3 25.4 (21-28) mmol/L ABG pH 7.40 (7.35-7.45) ABG Total CO2 26.7 (22-28) mmol.L ABG O2 Saturation 90.0 L (95-98) % ABG O2 Content 15.2 (15-23) ML/dl ABG Base Excess 0.5 (-2.0-3.0) mmol/L ABG Hemoglobin 12.1 (11.7-17.4) g/dL ABG Carboxyhemoglobin 0.8 (0.5-1.5) % POC ABG HHb (Measured) 9.9 H (0-5) % ABG Methemoglobin 0.0 (0.0-3.0) % ABG O2 Capacity 16.9 (16-24) mL/dl Hgb O2 Saturation 89.3 L (95.0-98.0) % FiO2 100.0 % Sodium (132-148) mmol/L Potassium (3.6-5.0) mmol/L Chloride (98-107) mmol/L Carbon Dioxide (21-33) mmol/L Anion Gap (10-20) BUN (7-21) mg/dL Creatinine (0.5-1.4) mg/dL Est GFR ( Amer) Est GFR (Non-Af Amer) POC Glucose (mg/dL) 56 L 64 L (65-110) mg/dL Random Glucose (70-110) mg/dL Calcium (8.4-10.5) mg/dL Phosphorus (2.5-4.5) mg/dL Magnesium (1.7-2.2) mg/dL Total Bilirubin (0.2-1.3) mg/dL AST (15-59) U/L ALT (7-56) U/L Alkaline Phosphatase (38-133) U/L Total Protein (5.8-8.3) g/dL Albumin (3.0-4.8) g/dL Globulin gm/dL Albumin/Globulin Ratio (1.1-1.8) 04/20/16 04/20/16 04/20/16 Range/Units 16:01 14:58 13:51 WBC (4.5-11.0) 10^3/ul RBC (3.5-6.1) 10^6/uL Hgb (14.0-18.0) gm/dL Hct (42.0-52.0) % MCV (80.0-105.0) fL MCH (25.0-35.0) pg MCHC (31.0-37.0) g/dl RDW (11.5-14.5) % Plt Count (120.0-450.0) 10^3/uL MPV (7.0-11.0) fl Gran % (50.0-68.0) % Lymph % (Auto) (22.0-35.0) % [place] % (Auto) (1.0-6.0) % Eos % (Auto) (1.5-5.0) % Baso % (Auto) (0.0-3.0) % Gran # (1.4-6.5) Lymph # (1.2-3.4) [place] # (0.1-0.6) Eos # (0.0-0.7) Baso # (0.0-2.0) K/mm3 APTT (23.7-30.8) Seconds pCO2 (35-45) mm/Hg pO2 (80-100) mm/Hg HCO3 (21-28) mmol/L ABG pH (7.35-7.45) ABG Total CO2 (22-28) mmol.L ABG O2 Saturation (95-98) % ABG O2 Content (15-23) ML/dl ABG Base Excess (-2.0-3.0) mmol/L ABG Hemoglobin (11.7-17.4) g/dL ABG Carboxyhemoglobin (0.5-1.5) % POC ABG HHb (Measured) (0-5) % ABG Methemoglobin (0.0-3.0) % ABG O2 Capacity (16-24) mL/dl Hgb O2 Saturation (95.0-98.0) % FiO2 % Sodium (132-148) mmol/L Potassium (3.6-5.0) mmol/L Chloride (98-107) mmol/L Carbon Dioxide (21-33) mmol/L Anion Gap (10-20) BUN (7-21) mg/dL Creatinine (0.5-1.4) mg/dL Est GFR ( Amer) Est GFR (Non-Af Amer) POC Glucose (mg/dL) 66 79 86 (65-110) mg/dL Random Glucose (70-110) mg/dL Calcium (8.4-10.5) mg/dL Phosphorus (2.5-4.5) mg/dL Magnesium (1.7-2.2) mg/dL Total Bilirubin (0.2-1.3) mg/dL AST (15-59) U/L ALT (7-56) U/L Alkaline Phosphatase (38-133) U/L Total Protein (5.8-8.3) g/dL Albumin (3.0-4.8) g/dL Globulin gm/dL Albumin/Globulin Ratio (1.1-1.8) 04/20/16 04/20/16 04/20/16 Range/Units 13:02 12:53 11:57 WBC (4.5-11.0) 10^3/ul RBC (3.5-6.1) 10^6/uL Hgb (14.0-18.0) gm/dL Hct (42.0-52.0) % MCV (80.0-105.0) fL MCH (25.0-35.0) pg MCHC (31.0-37.0) g/dl RDW (11.5-14.5) % Plt Count (120.0-450.0) 10^3/uL MPV (7.0-11.0) fl Gran % (50.0-68.0) % Lymph % (Auto) (22.0-35.0) % [place] % (Auto) (1.0-6.0) % Eos % (Auto) (1.5-5.0) % Baso % (Auto) (0.0-3.0) % Gran # (1.4-6.5) Lymph # (1.2-3.4) [place] # (0.1-0.6) Eos # (0.0-0.7) Baso # (0.0-2.0) K/mm3 APTT (23.7-30.8) Seconds pCO2 44 (35-45) mm/Hg pO2 44.0 L* (80-100) mm/Hg HCO3 26.0 (21-28) mmol/L ABG pH 7.38 (7.35-7.45) ABG Total CO2 27.4 (22-28) mmol.L ABG O2 Saturation 76.3 L (95-98) % ABG O2 Content 14.6 L (15-23) ML/dl ABG Base Excess 0.5 (-2.0-3.0) mmol/L ABG Hemoglobin 13.8 (11.7-17.4) g/dL ABG Carboxyhemoglobin 0.9 (0.5-1.5) % POC ABG HHb (Measured) 23.4 H (0-5) % ABG Methemoglobin 0.3 (0.0-3.0) % ABG O2 Capacity 19.1 (16-24) mL/dl Hgb O2 Saturation 75.3 L (95.0-98.0) % FiO2 100.0 % Sodium (132-148) mmol/L Potassium (3.6-5.0) mmol/L Chloride (98-107) mmol/L Carbon Dioxide (21-33) mmol/L Anion Gap (10-20) BUN (7-21) mg/dL Creatinine (0.5-1.4) mg/dL Est GFR ( Amer) Est GFR (Non-Af Amer) POC Glucose (mg/dL) 105 84 (65-110) mg/dL Random Glucose (70-110) mg/dL Calcium (8.4-10.5) mg/dL Phosphorus (2.5-4.5) mg/dL Magnesium (1.7-2.2) mg/dL Total Bilirubin (0.2-1.3) mg/dL AST (15-59) U/L ALT (7-56) U/L Alkaline Phosphatase (38-133) U/L Total Protein (5.8-8.3) g/dL Albumin (3.0-4.8) g/dL Globulin gm/dL Albumin/Globulin Ratio (1.1-1.8) 04/20/16 04/20/16 04/20/16 Range/Units 11:09 10:20 09:45 WBC 9.2 D (4.5-11.0) 10^3/ul RBC 4.18 (3.5-6.1) 10^6/uL Hgb 12.3 L (14.0-18.0) gm/dL Hct 37.9 L (42.0-52.0) % MCV 90.7 (80.0-105.0) fL MCH 29.4 (25.0-35.0) pg MCHC 32.5 (31.0-37.0) g/dl RDW 15.3 H (11.5-14.5) % Plt Count 111 L (120.0-450.0) 10^3/uL MPV 11.5 H (7.0-11.0) fl Gran % 82.5 H (50.0-68.0) % Lymph % (Auto) 4.5 L (22.0-35.0) % [place] % (Auto) 11.9 H (1.0-6.0) % Eos % (Auto) 0.9 L (1.5-5.0) % Baso % (Auto) 0.2 (0.0-3.0) % Gran # 7.58 H (1.4-6.5) Lymph # 0.4 L (1.2-3.4) [place] # 1.1 H (0.1-0.6) Eos # 0.1 (0.0-0.7) Baso # 0.02 (0.0-2.0) K/mm3 APTT (23.7-30.8) Seconds pCO2 (35-45) mm/Hg pO2 (80-100) mm/Hg HCO3 (21-28) mmol/L ABG pH (7.35-7.45) ABG Total CO2 (22-28) mmol.L ABG O2 Saturation (95-98) % ABG O2 Content (15-23) ML/dl ABG Base Excess (-2.0-3.0) mmol/L ABG Hemoglobin (11.7-17.4) g/dL ABG Carboxyhemoglobin (0.5-1.5) % POC ABG HHb (Measured) (0-5) % ABG Methemoglobin (0.0-3.0) % ABG O2 Capacity (16-24) mL/dl Hgb O2 Saturation (95.0-98.0) % FiO2 % Sodium (132-148) mmol/L Potassium (3.6-5.0) mmol/L Chloride (98-107) mmol/L Carbon Dioxide (21-33) mmol/L Anion Gap (10-20) BUN (7-21) mg/dL Creatinine (0.5-1.4) mg/dL Est GFR ( Amer) Est GFR (Non-Af Amer) POC Glucose (mg/dL) 79 81 (65-110) mg/dL Random Glucose (70-110) mg/dL Calcium (8.4-10.5) mg/dL Phosphorus (2.5-4.5) mg/dL Magnesium (1.7-2.2) mg/dL Total Bilirubin (0.2-1.3) mg/dL AST (15-59) U/L ALT (7-56) U/L Alkaline Phosphatase (38-133) U/L Total Protein (5.8-8.3) g/dL Albumin (3.0-4.8) g/dL Globulin gm/dL Albumin/Globulin Ratio (1.1-1.8) 04/20/16 04/20/16 04/20/16 Range/Units 07:59 07:09 07:00 WBC (4.5-11.0) 10^3/ul RBC (3.5-6.1) 10^6/uL Hgb (14.0-18.0) gm/dL Hct (42.0-52.0) % MCV (80.0-105.0) fL MCH (25.0-35.0) pg MCHC (31.0-37.0) g/dl RDW (11.5-14.5) % Plt Count (120.0-450.0) 10^3/uL MPV (7.0-11.0) fl Gran % (50.0-68.0) % Lymph % (Auto) (22.0-35.0) % [place] % (Auto) (1.0-6.0) % Eos % (Auto) (1.5-5.0) % Baso % (Auto) (0.0-3.0) % Gran # (1.4-6.5) Lymph # (1.2-3.4) [place] # (0.1-0.6) Eos # (0.0-0.7) Baso # (0.0-2.0) K/mm3 APTT (23.7-30.8) Seconds pCO2 (35-45) mm/Hg pO2 (80-100) mm/Hg HCO3 (21-28) mmol/L ABG pH (7.35-7.45) ABG Total CO2 (22-28) mmol.L ABG O2 Saturation (95-98) % ABG O2 Content (15-23) ML/dl ABG Base Excess (-2.0-3.0) mmol/L ABG Hemoglobin (11.7-17.4) g/dL ABG Carboxyhemoglobin (0.5-1.5) % POC ABG HHb (Measured) (0-5) % ABG Methemoglobin (0.0-3.0) % ABG O2 Capacity (16-24) mL/dl Hgb O2 Saturation (95.0-98.0) % FiO2 % Sodium 140 (132-148) mmol/L Potassium 4.0 (3.6-5.0) mmol/L Chloride 101 (98-107) mmol/L Carbon Dioxide 25 (21-33) mmol/L Anion Gap 18 (10-20) BUN 65 H (7-21) mg/dL Creatinine 9.0 H* (0.5-1.4) mg/dL Est GFR ( Amer) 8 Est GFR (Non-Af Amer) 6 POC Glucose (mg/dL) 98 93 (65-110) mg/dL Random Glucose 91 (70-110) mg/dL Calcium 6.5 L* (8.4-10.5) mg/dL Phosphorus (2.5-4.5) mg/dL Magnesium (1.7-2.2) mg/dL Total Bilirubin 1.2 (0.2-1.3) mg/dL AST 54 (15-59) U/L ALT 41 (7-56) U/L Alkaline Phosphatase 220 H (38-133) U/L Total Protein 4.8 L (5.8-8.3) g/dL Albumin 2.0 L (3.0-4.8) g/dL Globulin 2.8 gm/dL Albumin/Globulin Ratio 0.7 L (1.1-1.8) Laboratory Results - last 24 hr 04/20/16 04/20/16 04/20/16 07:00 07:09 07:59 WBC RBC Hgb Hct MCV MCH MCHC RDW Plt Count MPV Gran % Lymph % (Auto) [place] % (Auto) Eos % (Auto) Baso % (Auto) Gran # Lymph # [place] # Eos # Baso # APTT pCO2 pO2 HCO3 ABG pH ABG Total CO2 ABG O2 Saturation ABG O2 Content ABG Base Excess ABG Hemoglobin ABG Carboxyhemoglobin POC ABG HHb (Measured) ABG Methemoglobin ABG O2 Capacity Hgb O2 Saturation FiO2 Sodium 140 Potassium 4.0 Chloride 101 Carbon Dioxide 25 Anion Gap 18 BUN 65 H Creatinine 9.0 H* Est GFR ( Amer) 8 Est GFR (Non-Af Amer) 6 POC Glucose (mg/dL) 93 98 Random Glucose 91 Calcium 6.5 L* Phosphorus Magnesium Total Bilirubin 1.2 AST 54 ALT 41 Alkaline Phosphatase 220 H Total Protein 4.8 L Albumin 2.0 L Globulin 2.8 Albumin/Globulin Ratio 0.7 L 04/20/16 04/20/16 04/20/16 09:45 10:20 11:09 WBC 9.2 D RBC 4.18 Hgb 12.3 L Hct 37.9 L MCV 90.7 MCH 29.4 MCHC 32.5 RDW 15.3 H Plt Count 111 L MPV 11.5 H Gran % 82.5 H Lymph % (Auto) 4.5 L [place] % (Auto) 11.9 H Eos % (Auto) 0.9 L Baso % (Auto) 0.2 Gran # 7.58 H Lymph # 0.4 L [place] # 1.1 H Eos # 0.1 Baso # 0.02 APTT pCO2 pO2 HCO3 ABG pH ABG Total CO2 ABG O2 Saturation ABG O2 Content ABG Base Excess ABG Hemoglobin ABG Carboxyhemoglobin POC ABG HHb (Measured) ABG Methemoglobin ABG O2 Capacity Hgb O2 Saturation FiO2 Sodium Potassium Chloride Carbon Dioxide Anion Gap BUN Creatinine Est GFR ( Amer) Est GFR (Non-Af Amer) POC Glucose (mg/dL) 81 79 Random Glucose Calcium Phosphorus Magnesium Total Bilirubin AST ALT Alkaline Phosphatase Total Protein Albumin Globulin Albumin/Globulin Ratio 04/20/16 04/20/16 04/20/16 11:57 12:53 13:02 WBC RBC Hgb Hct MCV MCH MCHC RDW Plt Count MPV Gran % Lymph % (Auto) [place] % (Auto) Eos % (Auto) Baso % (Auto) Gran # Lymph # [place] # Eos # Baso # APTT pCO2 44 pO2 44.0 L* HCO3 26.0 ABG pH 7.38 ABG Total CO2 27.4 ABG O2 Saturation 76.3 L ABG O2 Content 14.6 L ABG Base Excess 0.5 ABG Hemoglobin 13.8 ABG Carboxyhemoglobin 0.9 POC ABG HHb (Measured) 23.4 H ABG Methemoglobin 0.3 ABG O2 Capacity 19.1 Hgb O2 Saturation 75.3 L FiO2 100.0 Sodium Potassium Chloride Carbon Dioxide Anion Gap BUN Creatinine Est GFR ( Amer) Est GFR (Non-Af Amer) POC Glucose (mg/dL) 84 105 Random Glucose Calcium Phosphorus Magnesium Total Bilirubin AST ALT Alkaline Phosphatase Total Protein Albumin Globulin Albumin/Globulin Ratio 04/20/16 04/20/16 04/20/16 13:51 14:58 16:01 WBC RBC Hgb Hct MCV MCH MCHC RDW Plt Count MPV Gran % Lymph % (Auto) [place] % (Auto) Eos % (Auto) Baso % (Auto) Gran # Lymph # [place] # Eos # Baso # APTT pCO2 pO2 HCO3 ABG pH ABG Total CO2 ABG O2 Saturation ABG O2 Content ABG Base Excess ABG Hemoglobin ABG Carboxyhemoglobin POC ABG HHb (Measured) ABG Methemoglobin ABG O2 Capacity Hgb O2 Saturation FiO2 Sodium Potassium Chloride Carbon Dioxide Anion Gap BUN Creatinine Est GFR ( Amer) Est GFR (Non-Af Amer) POC Glucose (mg/dL) 86 79 66 Random Glucose Calcium Phosphorus Magnesium Total Bilirubin AST ALT Alkaline Phosphatase Total Protein Albumin Globulin Albumin/Globulin Ratio 04/20/16 04/20/16 04/20/16 17:49 21:49 23:48 WBC RBC Hgb Hct MCV MCH MCHC RDW Plt Count MPV Gran % Lymph % (Auto) [place] % (Auto) Eos % (Auto) Baso % (Auto) Gran # Lymph # [place] # Eos # Baso # APTT pCO2 41 pO2 57.0 L HCO3 25.4 ABG pH 7.40 ABG Total CO2 26.7 ABG O2 Saturation 90.0 L ABG O2 Content 15.2 ABG Base Excess 0.5 ABG Hemoglobin 12.1 ABG Carboxyhemoglobin 0.8 POC ABG HHb (Measured) 9.9 H ABG Methemoglobin 0.0 ABG O2 Capacity 16.9 Hgb O2 Saturation 89.3 L FiO2 100.0 Sodium Potassium Chloride Carbon Dioxide Anion Gap BUN Creatinine Est GFR ( Amer) Est GFR (Non-Af Amer) POC Glucose (mg/dL) 64 L 56 L Random Glucose Calcium Phosphorus Magnesium Total Bilirubin AST ALT Alkaline Phosphatase Total Protein Albumin Globulin Albumin/Globulin Ratio 04/21/16 04/21/16 04/21/16 00:30 01:32 06:00 WBC 9.2 RBC 3.91 Hgb 11.5 L Hct 36.2 L MCV 92.6 MCH 29.4 MCHC 31.8 RDW 15.6 H Plt Count 101 L MPV 12.4 H Gran % 80.1 H Lymph % (Auto) 5.0 L [place] % (Auto) 13.3 H Eos % (Auto) 1.2 L Baso % (Auto) 0.4 Gran # 7.40 H Lymph # 0.5 L [place] # 1.2 H Eos # 0.1 Baso # 0.04 APTT 32.2 H pCO2 35 pO2 57.0 L HCO3 23.2 ABG pH 7.43 ABG Total CO2 24.3 ABG O2 Saturation 91.3 L ABG O2 Content 13.8 L ABG Base Excess -0.8 ABG Hemoglobin 10.9 L ABG Carboxyhemoglobin 1.1 POC ABG HHb (Measured) 8.6 H ABG Methemoglobin 0.2 ABG O2 Capacity 15.1 L Hgb O2 Saturation 90.1 L FiO2 100.0 Sodium 138 Potassium 3.3 L Chloride 104 Carbon Dioxide 25 Anion Gap 12 BUN 35 H Creatinine 5.5 H Est GFR ( Amer) 13 Est GFR (Non-Af Amer) 11 POC Glucose (mg/dL) 62 L Random Glucose 89 Calcium 5.5 L* Phosphorus 5.1 H Magnesium 1.8 Total Bilirubin 1.0 AST 43 ALT 35 Alkaline Phosphatase 167 H Total Protein 3.9 L Albumin 1.6 L Globulin 2.3 Albumin/Globulin Ratio 0.7 L EKG/Cardiology Studies: Cardiology / EKG Studies 04/20/16 09:29 EKG [ELECTROCARDIOGRAM] Stat Comment: Reason For Exam: fu 04/21/16 00:44 EKG [ELECTROCARDIOGRAM] Stat Comment: Reason For Exam: rule out ACS Fingerstick Blood Sugar Results: 62 Critical Care Progress Note - Nutrition Nutrition: Nutrition Category Date Time Status Renal Diet [DIET] Diets 04/20/16 Dinner Ordered Assessment/Plan - Assessment and Plan (Free Text) Assessment: 50 yo male with PMH of ESRD on HD (T,TH,S) cirrhosis, hep C, alcohol abuse, and h/o cocaine and heroin use presented with hypoxemic respiratory failure and AMS. Currently he is intubated on levophed, phenylephrine and vasopresson. Surgery placed a chest tube on right side. Right femoral central line placed. Plan: Neuro -AMS 2/2 drug overdose v. uremia v. hepatic encephalopathy - pt is awake and alert, moving all 4 extremities - drug screen pending - hold propofol due to low BP - ativan and morphine - will treat empirically for hepatic encephalopathy - cont to monitor cardio - Low BP - levophed and vasopresson, and phenylephrine through central line - midodrine BID - echo pending - cont to monitor - maintain MAP>65 - cardiology following pulm - CTA showed no PE, bilateral pleural effusions R>L - ABG showed low O2, repeat in afternoon - Chest tube placed by surgery, serosanganous fluid - surgery following - Saturations improved after chest tube placement - intubated Fio2 100%, peep 8 - cont to monitor - aspiration precaution, HOB >35 GI - h/o hep c and ascites - abd US showed moderate ascites with mild hepatosplenomegaly and moderate bilateral pleural effusions - on lactulose and rifaxmine for empiric treatment for hepatic encephalopathy - titrate lactulose to 2-3 BM per day - paracentesis is ordered - GI following - NPO, pt is intubated with OG tube - protonix ppx Renal - ESRD on HD - patient will go for HD today - nephro consult, Dr. Gonzalez - monitor electrolytes, replace as needed endo - fingerstick q6h - D5 with medication - monitor glucose ID - afebrile without leukocytosis - bilateral pleural effusion - start meropenem and vanco - received zosyn overnight - blood cx neg after 24 hours - procalcitonin mildly elevated - repeat procalcitonin in afternoon - lactate in wnl - ID following, Dr. Millard d/w attending <Kevin Nava - Last Filed: 04/21/16 13:05> CCU Objective - Vital Signs / Intake & Output Vital Signs (Last 4 hours): Vital Signs Temp Pulse BP Pulse Ox 04/21/16 11:35 82 91/55 L 100 04/21/16 11:25 79 106/36 L 91 L 04/21/16 11:20 87 92/58 L 100 04/21/16 11:18 81 84/53 L 97 04/21/16 11:16 75 67/28 L 85 L 04/21/16 11:12 76 89/47 L 98 04/21/16 11:10 73 84/45 L 98 04/21/16 11:09 86 96/62 L 100 04/21/16 11:01 73 85/32 L 94 L 04/21/16 11:00 76 95 04/21/16 10:46 86 102/41 L 94 L 04/21/16 10:31 77 102/57 L 96 04/21/16 10:30 82 74/44 L 98 04/21/16 10:18 84 85/53 L 95 04/21/16 10:16 84 73/51 L 100 04/21/16 10:13 77 82/50 L 93 L 04/21/16 10:10 134 H 78/65 L 04/21/16 10:08 82 92 L 04/21/16 10:05 77 87/47 L 96 04/21/16 10:00 97 F L 85 97/40 L 84 L 04/21/16 09:56 84 94/56 L 99 04/21/16 09:52 78 04/21/16 09:50 80 110/72 04/21/16 09:48 77 80/59 L 04/21/16 09:46 80/61 L 96 04/21/16 09:45 96 H 04/21/16 09:40 86/62 L 97 Intake and Output (Last 8hrs): Intake & Output 04/20/16 04/21/16 04/21/16 22:59 06:59 14:59 Intake Total 220 289 Output Total 1000 0 Balance -780 289 Intake: IV 289 RIGHT FOREARM 289 Oral 120 Other 100 Output: Urine 0 0 Urine, Voided 0 0 Other 1000 Other: # Bowel Movements 0 - Medications Active Medications: Active Medications Generic Name Dose Route Start Last Admin Trade Name Freq PRN Reason Stop Dose Admin Albuterol/Ipratropium 3 ml 04/20/16 13:13 Duoneb 3 Mg/0.5 Mg (3 Ml) Ud IH [id number] PRN Shortness of Breath Calcium Acetate 667 mg 04/21/16 08:00 04/21/16 08:52 Phoslo PO Not Given WM SIMON Heparin Sodium (Porcine) 5,000 units 04/21/16 10:00 Heparin SC Q12 SIMON Protocol Propofol 100 mls @ 2.36 mls/hr 04/20/16 19:13 04/21/16 06:22 Diprivan IV 31.78 mcg/kg/min .Q24H PRN Titration TITRATE PER MD ORDER Protocol 5 MCG/KG/MIN Norepinephrine Bitartrate 4 mg 254 mls @ 15.24 mls/hr 04/21/16 03:07 04/21/16 03:55 / Dextrose IV 8 mcg/min .[id number] PRN Titration TITRATE PER MD ORDER Protocol 4 MCG/MIN Meropenem 500 mg/ Sodium 100 mls @ 100 mls/hr 04/21/16 10:00 Chloride IVPB 04/28/16 10:01 Q12 SIMON Protocol Phenylephrine HCl 40 mg/ 254 mls @ 38.1 mls/hr 04/21/16 08:30 04/21/16 10:24 Sodium Chloride IV 38.1 mls/hr .[id number] PRN Administration TITRATE PER MD ORDER Protocol 100 MCG/MIN Vasopressin 20 units/ Sodium 101 mls @ 9.09 mls/hr 04/21/16 08:30 04/21/16 09: 00 Chloride IV 9.09 mls/hr .[id number] SIMON Administration Protocol 0.03 U/MIN Lactulose 20 gm 04/19/16 18:00 04/20/16 18:14 Enulose PO Not Given BID [facility] Lorazepam 2 mg 04/21/16 08:41 04/21/16 11:10 Ativan IVP 2 mg Q2H PRN Administration Agitation Protocol Midodrine 10 mg 04/20/16 22:00 04/20/16 22:48 Proamatine PO 10 mg Q12H SIMON Administration Morphine Sulfate 2 mg 04/21/16 08:41 04/21/16 10:59 Morphine IVP 2 mg Q4H PRN Administration Pain, moderate (4-7) Pantoprazole Sodium 40 mg 04/20/16 10:00 04/20/16 11:36 Protonix Inj IVP 40 mg DAILY SIMON Administration Rifaximin 550 mg 04/19/16 18:00 04/20/16 18:14 Xifaxan PO Not Given BID [facility] Protocol - Patient Studies Lab Studies: Microbiology Studies 04/19/16 17:25 MRSA Culture (Admit) - Final Naris MRSA NOT DETECTED Lab Studies 04/21/16 04/21/16 04/21/16 Range/Units 06:00 01:32 00:30 WBC 9.2 (4.5-11.0) 10^3/ul RBC 3.91 (3.5-6.1) 10^6/uL Hgb 11.5 L (14.0-18.0) gm/dL Hct 36.2 L (42.0-52.0) % MCV 92.6 (80.0-105.0) fL MCH 29.4 (25.0-35.0) pg MCHC 31.8 (31.0-37.0) g/dl RDW 15.6 H (11.5-14.5) % Plt Count 101 L (120.0-450.0) 10^3/uL MPV 12.4 H (7.0-11.0) fl Gran % 80.1 H (50.0-68.0) % Lymph % (Auto) 5.0 L (22.0-35.0) % [place] % (Auto) 13.3 H (1.0-6.0) % Eos % (Auto) 1.2 L (1.5-5.0) % Baso % (Auto) 0.4 (0.0-3.0) % Gran # 7.40 H (1.4-6.5) Lymph # 0.5 L (1.2-3.4) [place] # 1.2 H (0.1-0.6) Eos # 0.1 (0.0-0.7) Baso # 0.04 (0.0-2.0) K/mm3 APTT 32.2 H (23.7-30.8) Seconds pCO2 35 (35-45) mm/Hg pO2 57.0 L (80-100) mm/Hg HCO3 23.2 (21-28) mmol/L ABG pH 7.43 (7.35-7.45) ABG Total CO2 24.3 (22-28) mmol.L ABG O2 Saturation 91.3 L (95-98) % ABG O2 Content 13.8 L (15-23) ML/dl ABG Base Excess -0.8 (-2.0-3.0) mmol/L ABG Hemoglobin 10.9 L (11.7-17.4) g/dL ABG Carboxyhemoglobin 1.1 (0.5-1.5) % POC ABG HHb (Measured) 8.6 H (0-5) % ABG Methemoglobin 0.2 (0.0-3.0) % ABG O2 Capacity 15.1 L (16-24) mL/dl Hgb O2 Saturation 90.1 L (95.0-98.0) % FiO2 100.0 % Sodium 138 (132-148) mmol/L Potassium 3.3 L (3.6-5.0) mmol/L Chloride 104 (98-107) mmol/L Carbon Dioxide 25 (21-33) mmol/L Anion Gap 12 (10-20) BUN 35 H (7-21) mg/dL Creatinine 5.5 H (0.5-1.4) mg/dL Est GFR ( Amer) 13 Est GFR (Non-Af Amer) 11 POC Glucose (mg/dL) 62 L (65-110) mg/dL Random Glucose 89 (70-110) mg/dL Calcium 5.5 L* (8.4-10.5) mg/dL Phosphorus 5.1 H (2.5-4.5) mg/dL Magnesium 1.8 (1.7-2.2) mg/dL Total Bilirubin 1.0 (0.2-1.3) mg/dL AST 43 (15-59) U/L ALT 35 (7-56) U/L Alkaline Phosphatase 167 H (38-133) U/L Total Protein 3.9 L (5.8-8.3) g/dL Albumin 1.6 L (3.0-4.8) g/dL Globulin 2.3 gm/dL Albumin/Globulin Ratio 0.7 L (1.1-1.8) 04/20/16 04/20/16 04/20/16 Range/Units 23:48 21:49 17:49 WBC (4.5-11.0) 10^3/ul RBC (3.5-6.1) 10^6/uL Hgb (14.0-18.0) gm/dL Hct (42.0-52.0) % MCV (80.0-105.0) fL MCH (25.0-35.0) pg MCHC (31.0-37.0) g/dl RDW (11.5-14.5) % Plt Count (120.0-450.0) 10^3/uL MPV (7.0-11.0) fl Gran % (50.0-68.0) % Lymph % (Auto) (22.0-35.0) % [place] % (Auto) (1.0-6.0) % Eos % (Auto) (1.5-5.0) % Baso % (Auto) (0.0-3.0) % Gran # (1.4-6.5) Lymph # (1.2-3.4) [place] # (0.1-0.6) Eos # (0.0-0.7) Baso # (0.0-2.0) K/mm3 APTT (23.7-30.8) Seconds pCO2 41 (35-45) mm/Hg pO2 57.0 L (80-100) mm/Hg HCO3 25.4 (21-28) mmol/L ABG pH 7.40 (7.35-7.45) ABG Total CO2 26.7 (22-28) mmol.L ABG O2 Saturation 90.0 L (95-98) % ABG O2 Content 15.2 (15-23) ML/dl ABG Base Excess 0.5 (-2.0-3.0) mmol/L ABG Hemoglobin 12.1 (11.7-17.4) g/dL ABG Carboxyhemoglobin 0.8 (0.5-1.5) % POC ABG HHb (Measured) 9.9 H (0-5) % ABG Methemoglobin 0.0 (0.0-3.0) % ABG O2 Capacity 16.9 (16-24) mL/dl Hgb O2 Saturation 89.3 L (95.0-98.0) % FiO2 100.0 % Sodium (132-148) mmol/L Potassium (3.6-5.0) mmol/L Chloride (98-107) mmol/L Carbon Dioxide (21-33) mmol/L Anion Gap (10-20) BUN (7-21) mg/dL Creatinine (0.5-1.4) mg/dL Est GFR ( Amer) Est GFR (Non-Af Amer) POC Glucose (mg/dL) 56 L 64 L (65-110) mg/dL Random Glucose (70-110) mg/dL Calcium (8.4-10.5) mg/dL Phosphorus (2.5-4.5) mg/dL Magnesium (1.7-2.2) mg/dL Total Bilirubin (0.2-1.3) mg/dL AST (15-59) U/L ALT (7-56) U/L Alkaline Phosphatase (38-133) U/L Total Protein (5.8-8.3) g/dL Albumin (3.0-4.8) g/dL Globulin gm/dL Albumin/Globulin Ratio (1.1-1.8) 04/20/16 04/20/16 04/20/16 Range/Units 16:01 14:58 13:51 WBC (4.5-11.0) 10^3/ul RBC (3.5-6.1) 10^6/uL Hgb (14.0-18.0) gm/dL Hct (42.0-52.0) % MCV (80.0-105.0) fL MCH (25.0-35.0) pg MCHC (31.0-37.0) g/dl RDW (11.5-14.5) % Plt Count (120.0-450.0) 10^3/uL MPV (7.0-11.0) fl Gran % (50.0-68.0) % Lymph % (Auto) (22.0-35.0) % [place] % (Auto) (1.0-6.0) % Eos % (Auto) (1.5-5.0) % Baso % (Auto) (0.0-3.0) % Gran # (1.4-6.5) Lymph # (1.2-3.4) [place] # (0.1-0.6) Eos # (0.0-0.7) Baso # (0.0-2.0) K/mm3 APTT (23.7-30.8) Seconds pCO2 (35-45) mm/Hg pO2 (80-100) mm/Hg HCO3 (21-28) mmol/L ABG pH (7.35-7.45) ABG Total CO2 (22-28) mmol.L ABG O2 Saturation (95-98) % ABG O2 Content (15-23) ML/dl ABG Base Excess (-2.0-3.0) mmol/L ABG Hemoglobin (11.7-17.4) g/dL ABG Carboxyhemoglobin (0.5-1.5) % POC ABG HHb (Measured) (0-5) % ABG Methemoglobin (0.0-3.0) % ABG O2 Capacity (16-24) mL/dl Hgb O2 Saturation (95.0-98.0) % FiO2 % Sodium (132-148) mmol/L Potassium (3.6-5.0) mmol/L Chloride (98-107) mmol/L Carbon Dioxide (21-33) mmol/L Anion Gap (10-20) BUN (7-21) mg/dL Creatinine (0.5-1.4) mg/dL Est GFR ( Amer) Est GFR (Non-Af Amer) POC Glucose (mg/dL) 66 79 86 (65-110) mg/dL Random Glucose (70-110) mg/dL Calcium (8.4-10.5) mg/dL Phosphorus (2.5-4.5) mg/dL Magnesium (1.7-2.2) mg/dL Total Bilirubin (0.2-1.3) mg/dL AST (15-59) U/L ALT (7-56) U/L Alkaline Phosphatase (38-133) U/L Total Protein (5.8-8.3) g/dL Albumin (3.0-4.8) g/dL Globulin gm/dL Albumin/Globulin Ratio (1.1-1.8) 04/20/16 04/20/16 04/20/16 Range/Units 13:02 12:53 11:57 WBC (4.5-11.0) 10^3/ul RBC (3.5-6.1) 10^6/uL Hgb (14.0-18.0) gm/dL Hct (42.0-52.0) % MCV (80.0-105.0) fL MCH (25.0-35.0) pg MCHC (31.0-37.0) g/dl RDW (11.5-14.5) % Plt Count (120.0-450.0) 10^3/uL MPV (7.0-11.0) fl Gran % (50.0-68.0) % Lymph % (Auto) (22.0-35.0) % [place] % (Auto) (1.0-6.0) % Eos % (Auto) (1.5-5.0) % Baso % (Auto) (0.0-3.0) % Gran # (1.4-6.5) Lymph # (1.2-3.4) [place] # (0.1-0.6) Eos # (0.0-0.7) Baso # (0.0-2.0) K/mm3 APTT (23.7-30.8) Seconds pCO2 44 (35-45) mm/Hg pO2 44.0 L* (80-100) mm/Hg HCO3 26.0 (21-28) mmol/L ABG pH 7.38 (7.35-7.45) ABG Total CO2 27.4 (22-28) mmol.L ABG O2 Saturation 76.3 L (95-98) % ABG O2 Content 14.6 L (15-23) ML/dl ABG Base Excess 0.5 (-2.0-3.0) mmol/L ABG Hemoglobin 13.8 (11.7-17.4) g/dL ABG Carboxyhemoglobin 0.9 (0.5-1.5) % POC ABG HHb (Measured) 23.4 H (0-5) % ABG Methemoglobin 0.3 (0.0-3.0) % ABG O2 Capacity 19.1 (16-24) mL/dl Hgb O2 Saturation 75.3 L (95.0-98.0) % FiO2 100.0 % Sodium (132-148) mmol/L Potassium (3.6-5.0) mmol/L Chloride (98-107) mmol/L Carbon Dioxide (21-33) mmol/L Anion Gap (10-20) BUN (7-21) mg/dL Creatinine (0.5-1.4) mg/dL Est GFR ( Amer) Est GFR (Non-Af Amer) POC Glucose (mg/dL) 105 84 (65-110) mg/dL Random Glucose (70-110) mg/dL Calcium (8.4-10.5) mg/dL Phosphorus (2.5-4.5) mg/dL Magnesium (1.7-2.2) mg/dL Total Bilirubin (0.2-1.3) mg/dL AST (15-59) U/L ALT (7-56) U/L Alkaline Phosphatase (38-133) U/L Total Protein (5.8-8.3) g/dL Albumin (3.0-4.8) g/dL Globulin gm/dL Albumin/Globulin Ratio (1.1-1.8) 03/09/2904/20/16 04/20/16 Range/Units 11:09 09:45 07:59 WBC (4.5-11.0) 10^3/ul RBC (3.5-6.1) 10^6/uL Hgb (14.0-18.0) gm/dL Hct (42.0-52.0) % MCV (80.0-105.0) fL MCH (25.0-35.0) pg MCHC (31.0-37.0) g/dl RDW (11.5-14.5) % Plt Count (120.0-450.0) 10^3/uL MPV (7.0-11.0) fl Gran % (50.0-68.0) % Lymph % (Auto) (22.0-35.0) % [place] % (Auto) (1.0-6.0) % Eos % (Auto) (1.5-5.0) % Baso % (Auto) (0.0-3.0) % Gran # (1.4-6.5) Lymph # (1.2-3.4) [place] # (0.1-0.6) Eos # (0.0-0.7) Baso # (0.0-2.0) K/mm3 APTT (23.7-30.8) Seconds pCO2 (35-45) mm/Hg pO2 (80-100) mm/Hg HCO3 (21-28) mmol/L ABG pH (7.35-7.45) ABG Total CO2 (22-28) mmol.L ABG O2 Saturation (95-98) % ABG O2 Content (15-23) ML/dl ABG Base Excess (-2.0-3.0) mmol/L ABG Hemoglobin (11.7-17.4) g/dL ABG Carboxyhemoglobin (0.5-1.5) % POC ABG HHb (Measured) (0-5) % ABG Methemoglobin (0.0-3.0) % ABG O2 Capacity (16-24) mL/dl Hgb O2 Saturation (95.0-98.0) % FiO2 % Sodium (132-148) mmol/L Potassium (3.6-5.0) mmol/L Chloride (98-107) mmol/L Carbon Dioxide (21-33) mmol/L Anion Gap (10-20) BUN (7-21) mg/dL Creatinine (0.5-1.4) mg/dL Est GFR ( Amer) Est GFR (Non-Af Amer) POC Glucose (mg/dL) 79 81 98 (65-110) mg/dL Random Glucose (70-110) mg/dL Calcium (8.4-10.5) mg/dL Phosphorus (2.5-4.5) mg/dL Magnesium (1.7-2.2) mg/dL Total Bilirubin (0.2-1.3) mg/dL AST (15-59) U/L ALT (7-56) U/L Alkaline Phosphatase (38-133) U/L Total Protein (5.8-8.3) g/dL Albumin (3.0-4.8) g/dL Globulin gm/dL Albumin/Globulin Ratio (1.1-1.8) 04/20/16 Range/Units 07:09 WBC (4.5-11.0) 10^3/ul RBC (3.5-6.1) 10^6/uL Hgb (14.0-18.0) gm/dL Hct (42.0-52.0) % MCV (80.0-105.0) fL MCH (25.0-35.0) pg MCHC (31.0-37.0) g/dl RDW (11.5-14.5) % Plt Count (120.0-450.0) 10^3/uL MPV (7.0-11.0) fl Gran % (50.0-68.0) % Lymph % (Auto) (22.0-35.0) % [place] % (Auto) (1.0-6.0) % Eos % (Auto) (1.5-5.0) % Baso % (Auto) (0.0-3.0) % Gran # (1.4-6.5) Lymph # (1.2-3.4) [place] # (0.1-0.6) Eos # (0.0-0.7) Baso # (0.0-2.0) K/mm3 APTT (23.7-30.8) Seconds pCO2 (35-45) mm/Hg pO2 (80-100) mm/Hg HCO3 (21-28) mmol/L ABG pH (7.35-7.45) ABG Total CO2 (22-28) mmol.L ABG O2 Saturation (95-98) % ABG O2 Content (15-23) ML/dl ABG Base Excess (-2.0-3.0) mmol/L ABG Hemoglobin (11.7-17.4) g/dL ABG Carboxyhemoglobin (0.5-1.5) % POC ABG HHb (Measured) (0-5) % ABG Methemoglobin (0.0-3.0) % ABG O2 Capacity (16-24) mL/dl Hgb O2 Saturation (95.0-98.0) % FiO2 % Sodium (132-148) mmol/L Potassium (3.6-5.0) mmol/L Chloride (98-107) mmol/L Carbon Dioxide (21-33) mmol/L Anion Gap (10-20) BUN (7-21) mg/dL Creatinine (0.5-1.4) mg/dL Est GFR ( Amer) Est GFR (Non-Af Amer) POC Glucose (mg/dL) 93 (65-110) mg/dL Random Glucose (70-110) mg/dL Calcium (8.4-10.5) mg/dL Phosphorus (2.5-4.5) mg/dL Magnesium (1.7-2.2) mg/dL Total Bilirubin (0.2-1.3) mg/dL AST (15-59) U/L ALT (7-56) U/L Alkaline Phosphatase (38-133) U/L Total Protein (5.8-8.3) g/dL Albumin (3.0-4.8) g/dL Globulin gm/dL Albumin/Globulin Ratio (1.1-1.8) Laboratory Results - last 24 hr 04/20/16 04/20/16 04/20/16 07:09 07:59 09:45 WBC RBC Hgb Hct MCV MCH MCHC RDW Plt Count MPV Gran % Lymph % (Auto) [place] % (Auto) Eos % (Auto) Baso % (Auto) Gran # Lymph # [place] # Eos # Baso # APTT pCO2 pO2 HCO3 ABG pH ABG Total CO2 ABG O2 Saturation ABG O2 Content ABG Base Excess ABG Hemoglobin ABG Carboxyhemoglobin POC ABG HHb (Measured) ABG Methemoglobin ABG O2 Capacity Hgb O2 Saturation FiO2 Sodium Potassium Chloride Carbon Dioxide Anion Gap BUN Creatinine Est GFR ( Amer) Est GFR (Non-Af Amer) POC Glucose (mg/dL) 93 98 81 Random Glucose Calcium Phosphorus Magnesium Total Bilirubin AST ALT Alkaline Phosphatase Total Protein Albumin Globulin Albumin/Globulin Ratio 04/20/16 04/20/16 04/20/16 11:09 11:57 12:53 WBC RBC Hgb Hct MCV MCH MCHC RDW Plt Count MPV Gran % Lymph % (Auto) [place] % (Auto) Eos % (Auto) Baso % (Auto) Gran # Lymph # [place] # Eos # Baso # APTT pCO2 pO2 HCO3 ABG pH ABG Total CO2 ABG O2 Saturation ABG O2 Content ABG Base Excess ABG Hemoglobin ABG Carboxyhemoglobin POC ABG HHb (Measured) ABG Methemoglobin ABG O2 Capacity Hgb O2 Saturation FiO2 Sodium Potassium Chloride Carbon Dioxide Anion Gap BUN Creatinine Est GFR ( Amer) Est GFR (Non-Af Amer) POC Glucose (mg/dL) 79 84 105 Random Glucose Calcium Phosphorus Magnesium Total Bilirubin AST ALT Alkaline Phosphatase Total Protein Albumin Globulin Albumin/Globulin Ratio 04/20/16 04/20/16 04/20/16 13:02 13:51 14:58 WBC RBC Hgb Hct MCV MCH MCHC RDW Plt Count MPV Gran % Lymph % (Auto) [place] % (Auto) Eos % (Auto) Baso % (Auto) Gran # Lymph # [place] # Eos # Baso # APTT pCO2 44 pO2 44.0 L* HCO3 26.0 ABG pH 7.38 ABG Total CO2 27.4 ABG O2 Saturation 76.3 L ABG O2 Content 14.6 L ABG Base Excess 0.5 ABG Hemoglobin 13.8 ABG Carboxyhemoglobin 0.9 POC ABG HHb (Measured) 23.4 H ABG Methemoglobin 0.3 ABG O2 Capacity 19.1 Hgb O2 Saturation 75.3 L FiO2 100.0 Sodium Potassium Chloride Carbon Dioxide Anion Gap BUN Creatinine Est GFR ( Amer) Est GFR (Non-Af Amer) POC Glucose (mg/dL) 86 79 Random Glucose Calcium Phosphorus Magnesium Total Bilirubin AST ALT Alkaline Phosphatase Total Protein Albumin Globulin Albumin/Globulin Ratio 04/20/16 04/20/16 04/20/16 16:01 17:49 21:49 WBC RBC Hgb Hct MCV MCH MCHC RDW Plt Count MPV Gran % Lymph % (Auto) [place] % (Auto) Eos % (Auto) Baso % (Auto) Gran # Lymph # [place] # Eos # Baso # APTT pCO2 41 pO2 57.0 L HCO3 25.4 ABG pH 7.40 ABG Total CO2 26.7 ABG O2 Saturation 90.0 L ABG O2 Content 15.2 ABG Base Excess 0.5 ABG Hemoglobin 12.1 ABG Carboxyhemoglobin 0.8 POC ABG HHb (Measured) 9.9 H ABG Methemoglobin 0.0 ABG O2 Capacity 16.9 Hgb O2 Saturation 89.3 L FiO2 100.0 Sodium Potassium Chloride Carbon Dioxide Anion Gap BUN Creatinine Est GFR ( Amer) Est GFR (Non-Af Amer) POC Glucose (mg/dL) 66 64 L Random Glucose Calcium Phosphorus Magnesium Total Bilirubin AST ALT Alkaline Phosphatase Total Protein Albumin Globulin Albumin/Globulin Ratio 04/20/16 04/21/16 04/21/16 23:48 00:30 01:32 WBC RBC Hgb Hct MCV MCH MCHC RDW Plt Count MPV Gran % Lymph % (Auto) [place] % (Auto) Eos % (Auto) Baso % (Auto) Gran # Lymph # [place] # Eos # Baso # APTT pCO2 35 pO2 57.0 L HCO3 23.2 ABG pH 7.43 ABG Total CO2 24.3 ABG O2 Saturation 91.3 L ABG O2 Content 13.8 L ABG Base Excess -0.8 ABG Hemoglobin 10.9 L ABG Carboxyhemoglobin 1.1 POC ABG HHb (Measured) 8.6 H ABG Methemoglobin 0.2 ABG O2 Capacity 15.1 L Hgb O2 Saturation 90.1 L FiO2 100.0 Sodium Potassium Chloride Carbon Dioxide Anion Gap BUN Creatinine Est GFR ( Amer) Est GFR (Non-Af Amer) POC Glucose (mg/dL) 56 L 62 L Random Glucose Calcium Phosphorus Magnesium Total Bilirubin AST ALT Alkaline Phosphatase Total Protein Albumin Globulin Albumin/Globulin Ratio 04/21/16 06:00 WBC 9.2 RBC 3.91 Hgb 11.5 L Hct 36.2 L MCV 92.6 MCH 29.4 MCHC 31.8 RDW 15.6 H Plt Count 101 L MPV 12.4 H Gran % 80.1 H Lymph % (Auto) 5.0 L [place] % (Auto) 13.3 H Eos % (Auto) 1.2 L Baso % (Auto) 0.4 Gran # 7.40 H Lymph # 0.5 L [place] # 1.2 H Eos # 0.1 Baso # 0.04 APTT 32.2 H pCO2 pO2 HCO3 ABG pH ABG Total CO2 ABG O2 Saturation ABG O2 Content ABG Base Excess ABG Hemoglobin ABG Carboxyhemoglobin POC ABG HHb (Measured) ABG Methemoglobin ABG O2 Capacity Hgb O2 Saturation FiO2 Sodium 138 Potassium 3.3 L Chloride 104 Carbon Dioxide 25 Anion Gap 12 BUN 35 H Creatinine 5.5 H Est GFR ( Amer) 13 Est GFR (Non-Af Amer) 11 POC Glucose (mg/dL) Random Glucose 89 Calcium 5.5 L* Phosphorus 5.1 H Magnesium 1.8 Total Bilirubin 1.0 AST 43 ALT 35 Alkaline Phosphatase 167 H Total Protein 3.9 L Albumin 1.6 L Globulin 2.3 Albumin/Globulin Ratio 0.7 L EKG/Cardiology Studies: Cardiology / EKG Studies 04/21/16 00:44 EKG [ELECTROCARDIOGRAM] Stat Comment: Reason For Exam: rule out ACS Critical Care Progress Note - Nutrition Nutrition: Nutrition Category Date Time Status Renal Diet [DIET] Diets 04/20/16 Dinner Ordered Attending/Attestation - Attestation I have personally seen and examined this patient.: Yes I have fully participated in the care of the patient.: Yes I have reviewed all pertinent clinical information: Yes Notes (Text): 04/21/16 12:59 The patient was seen and examined at the bedside. Patient care was discussed with resident Medical records, lab studies, and imaging were reviewed and management issues were discussed and formulated. Last 24H events reviewed. Agree with above treatment plans as outlined in 's note with addition of the following: Respiratory failure \ Septic shock \ Pleural Effusion \ PNA \ ESRD on HD \ Cirrhosis \ -hemodynamic monitoring and vasopressor support to maintain MAP>65; continue levophed, vasopressin, phenylephrine -f\u Echo -mechanical ventilation and o2 supplementation to maintain Spo2 >90 Pao2>60 -monitor for TV 6ml\kg IBW and plateau pressure <30 -ABG in AM reviewed -PEEP increased to 8 -s\p chest tube placement by surgical team -no air leak noted -escalated broad spectrum Abx as per ID team to V[place]\Merrem; f\u cultures -f\u serial LFT; GI team following -f\u Bun\Cr ; HD as per renal team -tube feeds and aspiration precautions -sedation PRN with benzo\opioid regiment -DVT \ PUD prophylaxis CCM time 55 min excluding procedures. Condition remains critical Procedure Note: Emergent central line placement , supervised Pls see full note in EMR by
--- NOTE | 2016-04-21 10:34 | CARD ---
APPROVED REPORT EXAM: Two-dimensional and M-mode echocardiogram with Doppler and color Doppler. Other Information Quality : Fair[employer] : INDICATION Dyspnea , TV prosthesis 2D DIMENSIONS Left Atrium (2D)4.4 (1.6-4.0cm)IVSd1.3 (0.7-1.1cm) LVDd4.3 (3.9-5.9cm)PWd1.4 (0.7-1.1cm) LVDs3.0 (2.5-4.0cm)FS (%) 31.0 % LVEF (%)59.0 (>50%) M-Mode DIMENSIONS Aortic Root3.50 (2.2-3.7cm)Aortic Cusp Exc.2.00 (1.5-2.0cm) Aortic Valve AoV Peak [id number]/Chiara Peak GR.6mmHg Mitral Valve E/A ratio0.0 TDI E/Lateral E'0.0E/Medial E'0.0 Pulmonary Valve PV Peak Fnfcrxve38.2cm/sPV Peak Grad.3mmHg Tricuspid Valve TR Peak [id number] [id number] Peak Gr.44mmHg [id number] LEFT VENTRICLE The left ventricle is normal size. There is normal left ventricular wall thickness. The left ventricular function is normal. The left ventricular ejection fraction is within the normal range. There is normal LV segmental wall motion. RIGHT VENTRICLE The right ventricle is mildly dilated. ATRIA The left atrium is moderately dilated. The right atrium is moderately dilated. The interatrial septum is intact with no evidence for an atrial septal defect. AORTIC VALVE The aortic valve is normal in structure. MITRAL VALVE The mitral valve is normal in structure. Mitral regurgitation is mild. TRICUSPID VALVE There is moderate tricuspid regurgitation. There is moderate-severe pulmonary hypertension. TV bipprosthesis noted. PULMONIC VALVE The pulmonary valve is normal in structure. GREAT VESSELS The aortic root is normal in size. PERICARDIAL EFFUSION pleural effusion present There is no pericardial effusion. <Conclusion> The left ventricle is normal size. There is normal left ventricular wall thickness. The left ventricular function is normal. The right ventricle is mildly dilated. The left atrium is moderately dilated. The right atrium is moderately dilated. Mitral regurgitation is mild. TV bipprosthesis noted. There is moderate tricuspid regurgitation. There is moderate-severe pulmonary hypertension.
[2016-04-21] MEDS: Morphine 2 mg/ml ISec IVP PRN (10:59)
--- NOTE | 2016-04-21 11:31 | PCM.PROC ---
Procedures Attestation:: I certify that I have explained the specified Operation(s) or Procedure(s), risks, benefits and reasonable alternatives to the Patient and/or other person responsible. The opportunity was given to ask questions and all questions answered - Central Line Placement Right Femoral Triple Lumen Catheter Aseptic technique was employed throughout the procedure: Hand Hygiene done prior to procedure, Full sterile barriers (mask, hair cover, sterile gown, sterile gloves), Full body sterile drape, Chloraprep Antiseptic: 2 minute prep for Femoral CVP Time Out Performed: Yes Pt. Placed on Pulse Ox Monitor: Yes Central Line Prep: Chlorhexidine-Alcohol Combination Local Anesthesia Used: Lidocaine 1% Ultrasound Used for Placement: Yes Central Line Lumen Inserted: triple Central Line Length: 20 cm Post Procedure: Sutured in Place, Good Blood Return, All Ports Aspirated, Flushed, Capped, Sterile Dressing Applied Post procedure dressing: Chlorhexidine disc (Biopatch) Patient Tolerated Procedure: Well Immediate Complications: None
--- NOTE | 2016-04-21 12:01 | RAD ---
HISTORY: s/p R CT COMPARISON: 04/20/2016 FINDINGS: LUNGS: There is near complete resolution of the pulmonary edema and effusions seen yesterday. There is minimal vascular congestion left greater than right. PLEURA: No significant pleural effusion identified, no pneumothorax apparent. CARDIOVASCULAR: Normal. OSSEOUS STRUCTURES: No significant abnormalities. VISUALIZED UPPER ABDOMEN: Normal. OTHER FINDINGS: Central lines and tubes are unchanged and remain in satisfactory position IMPRESSION: Near complete resolution of pulmonary edema
--- NOTE | 2016-04-21 12:05 | CP.PCM.PN ---
<Foster Santoyo - Last Filed: 04/21/16 12:28> Subjective - Date & Time of Evaluation Date of Evaluation: 04/21/16 Time of Evaluation: 11:55 - Subjective Subjective: Medicine PGY1 - GI service Patient seen and examined at bedside this morning. Patient is currently intubated and sedated on propofol and levophed drips. Overnight, patient went into acute hypoxemic respiratory failure and was subsequently intubated. A CTA was negative for PE, however revealed a new large r/s loculated pleurfal effusion and b/l lower atelectasis. Surgery consulted and a chest tube was placed. Objective - Vital Signs/Intake and Output Vital Signs (last 24 hours): Temp Pulse Resp BP Pulse Ox 97.5 F L 82 16 91/55 L 100 04/21/16 00:00 04/21/16 11:35 04/21/16 07:28 04/21/16 11:35 04/21/16 11:35 Intake and Output: 04/21/16 04/21/16 06:59 18:59 Intake Total 289 Output Total 0 Balance 289 - Medications Medications: Current Medications Albuterol/Ipratropium (Duoneb 3 Mg/0.5 Mg (3 Ml) Ud) 3 ml IH [id number] PRN PRN Reason: Shortness of Breath Calcium Acetate (Phoslo) 667 mg PO WM SIMON Heparin Sodium (Porcine) (Heparin) 5,000 units SC Q12 SIMON PRN Reason: Protocol Propofol (Diprivan) 100 mls @ 2.36 mls/hr IV .Q24H PRN; Protocol; 5 MCG/KG/MIN PRN Reason: TITRATE PER MD ORDER Last Titration: 04/21/16 06:22 Dose: 31.78 mcg/kg/min Norepinephrine Bitartrate 4 mg (/ Dextrose) 254 mls @ 15.24 mls/hr IV .[id number] PRN; Protocol; 4 MCG/MIN PRN Reason: TITRATE PER MD ORDER Last Titration: 04/21/16 03:55 Dose: 8 mcg/min Meropenem 500 mg/ Sodium (Chloride) 100 mls @ 100 mls/hr IVPB Q12 SIMON PRN Reason: Protocol Stop: 04/28/16 10:01 Phenylephrine HCl 40 mg/ (Sodium Chloride) 254 mls @ 38.1 mls/hr IV .Q6H40M PRN ; Protocol; 100 MCG/MIN PRN Reason: TITRATE PER MD ORDER Last Admin: 04/21/16 10:24 Dose: 38.1 mls/hr Vasopressin 20 units/ Sodium (Chloride) 101 mls @ 9.09 mls/hr IV .Q11H7M SIMON; 0.03 U/MIN PRN Reason: Protocol Last Admin: 04/21/16 09:00 Dose: 9.09 mls/hr Lactulose (Enulose) 20 gm PO BID [facility] Last Admin: 04/20/16 18:14 Dose: Not Given Lorazepam (Ativan) 2 mg IVP Q2H PRN; Protocol PRN Reason: Agitation Last Admin: 04/21/16 11:10 Dose: 2 mg Midodrine (Proamatine) 10 mg PO Q12H [facility] Last Admin: 04/20/16 22:48 Dose: 10 mg Morphine Sulfate (Morphine) 2 mg IVP Q4H PRN PRN Reason: Pain, moderate (4-7) Last Admin: 04/21/16 10:59 Dose: 2 mg Pantoprazole Sodium (Protonix Inj) 40 mg IVP DAILY [facility] Last Admin: 04/20/16 11:36 Dose: 40 mg Rifaximin (Xifaxan) 550 mg PO BID SIMON PRN Reason: Protocol Last Admin: 04/20/16 18:14 Dose: Not Given - Labs Labs: 04/21/16 06:00 04/21/16 06:00 PT 12.4 Seconds (9.9-11.8) H 04/19/16 12:56 INR 1.15 (0.93-1.08) H 04/19/16 12:56 APTT 32.2 Seconds (23.7-30.8) H 04/21/16 06:00 - Constitutional Appears: Older Than Stated Age, Chronically Ill - Head Exam Head Exam: ATRAUMATIC, NORMOCEPHALIC - Respiratory Exam Respiratory Exam: Decreased Breath Sounds, Rhonchi. absent: Rales, Wheezes - Cardiovascular Exam Cardiovascular Exam: +S1, +S2, Murmur. absent: Gallop, Rubs - GI/Abdominal Exam GI & Abdominal Exam: Soft. absent: Distended, Firm, Guarding, Rigid, Tenderness - Neurological Exam Neurological Exam: absent: Alert, Awake, Oriented x3 Assessment and Plan - Assessment and Plan (Free Text) Assessment: 50yo male with history of CAD s/p CABG, chronic Hepatitis C, ESRD on hemodialysis (), polysubstance abuse admitted to ICU with altered mental status 1. Altered mental status 2. Ascites 3. Chronic hepatitis C 4. ESRD on hemodialysis 5. CAD Plan: -Altered mental status may be 2/2 drug abuse, uremia, or hepatic encephalopathy , or multifactorial -No definite diagnosis of cirrhosis on imaging, but he does have thrombocytopenia and chronic hepatitis c -Continue lactulose 20gm BID, titrate to 2-3 bowel movements per day -Continue xifaxan 550mg BID -Recommend empiric treatment for hepatic encephalopathy -ammonia is unremarkable -Recommend US guided paracentesis to reevaluate SAAG, TP, and r/o SBP -Paracentesis from 09/30/15 had a SAAG > 1.1 suggestive of portal hypertension -Echocardiogram revealed LVEF of 59%; see full report -Abdominal US reviewed; bilateral pleural effusions and moderate abdominal ascites; mild hepatosplenomegaly -Continue current medical management as per ICU/primary team -Will continue to monitor and make recommendations as indicated Patient seen and case discussed with attending, Dr. Quiroz <Ezekiel Quiroz - Last Filed: 04/21/16 16:12> Objective - Vital Signs/Intake and Output Vital Signs (last 24 hours): Temp Pulse Resp BP Pulse Ox 97.1 F L 73 16 107/50 L 96 04/21/16 12:00 04/21/16 15:00 04/21/16 07:28 04/21/16 15:00 04/21/16 15:00 Intake and Output: 04/21/16 04/21/16 06:59 18:59 Intake Total 289 Output Total 0 Balance 289 - Medications Medications: Current Medications Albuterol/Ipratropium (Duoneb 3 Mg/0.5 Mg (3 Ml) Ud) 3 ml IH [id number] PRN PRN Reason: Shortness of Breath Calcium Acetate (Phoslo) 667 mg PO WM SIMON Last Admin: 04/21/16 08:52 Dose: Not Given Heparin Sodium (Porcine) (Heparin) 5,000 units SC Q12 SIMON PRN Reason: Protocol Last Admin: 04/21/16 10:08 Dose: Not Given Propofol (Diprivan) 100 mls @ 2.36 mls/hr IV .Q24H PRN; Protocol; 5 MCG/KG/MIN PRN Reason: TITRATE PER MD ORDER Last Titration: 04/21/16 08:25 Dose: 0 mcg/kg/min Norepinephrine Bitartrate 4 mg (/ Dextrose) 254 mls @ 15.24 mls/hr IV .[id number] PRN; Protocol; 4 MCG/MIN PRN Reason: TITRATE PER MD ORDER Last Titration: 04/21/16 03:55 Dose: 8 mcg/min Meropenem 500 mg/ Sodium (Chloride) 100 mls @ 100 mls/hr IVPB Q12 SIMON PRN Reason: Protocol Stop: 04/28/16 10:01 Last Admin: 04/21/16 12:34 Dose: 100 mls/hr Phenylephrine HCl 40 mg/ (Sodium Chloride) 254 mls @ 38.1 mls/hr IV .Q6H40M PRN ; Protocol; 100 MCG/MIN PRN Reason: TITRATE PER MD ORDER Last Admin: 04/21/16 10:24 Dose: 38.1 mls/hr Vasopressin 20 units/ Sodium (Chloride) 101 mls @ 9.09 mls/hr IV .Q11H7M SIMON; 0.03 U/MIN PRN Reason: Protocol Last Admin: 04/21/16 09:00 Dose: 9.09 mls/hr Lactulose (Enulose) 20 gm PO BID SIMON Last Admin: 04/20/16 18:14 Dose: Not Given Lorazepam (Ativan) 2 mg IVP Q2H PRN; Protocol PRN Reason: Agitation Last Admin: 04/21/16 14:03 Dose: 2 mg Midodrine (Proamatine) 10 mg PO Q12H SIMON Last Admin: 04/20/16 22:48 Dose: 10 mg Morphine Sulfate (Morphine) 2 mg IVP Q4H PRN PRN Reason: Pain, moderate (4-7) Last Admin: 04/21/16 10:59 Dose: 2 mg Pantoprazole Sodium (Protonix Inj) 40 mg IVP DAILY SIMON Last Admin: 04/20/16 11:36 Dose: 40 mg Rifaximin (Xifaxan) 550 mg PO BID SIMON PRN Reason: Protocol Last Admin: 04/20/16 18:14 Dose: Not Given - Labs Labs: 04/21/16 06:00 04/21/16 06:00 PT 12.4 Seconds (9.9-11.8) H 04/19/16 12:56 INR 1.15 (0.93-1.08) H 04/19/16 12:56 APTT 32.2 Seconds (23.7-30.8) H 04/21/16 06:00 Attending/Attestation - Attestation I have personally seen and examined this patient.: Yes I have fully participated in the care of the patient.: Yes I have reviewed all pertinent clinical information, including history, physical exam and plan: Yes Notes (Text): 04/21/16 16:10 50 year old male with h/o CAD s/p CABG, chronic hepatitis C, ESRD on HD, polysubstance abuse including current heroin use admitted with altered mental status. 1. Altered mental status 2. Ascites 3. Chronic hepatitis C Plan: -altered mental status may be 2/2 drug abuse, uremia, or hepatic encephalopathy , or multifactorial -ammonia was unremarkable -no definite diagnosis of cirrhosis on imaging, but he does have thrombocytopenia, chronic hepatitis c, prior history of EtOH abuse, and high SAAG ascites in the past -has severe pneumonia and sepsis, intubated, on pressor support, critically ill -continue lactulose and rifaxamin -recommend broad spectrum IV antibiotics -recommend paracentesis when possible -supportive care
--- NOTE | 2016-04-21 12:08 | RAD ---
HISTORY: ETT adjustment and OGT placement COMPARISON: Earlier same day FINDINGS: LUNGS: There is increasing pulmonary edema. The endotracheal tube nasogastric tube and right-sided dialysis catheter are in satisfactory position PLEURA: Small pleural effusions CARDIOVASCULAR: Mild cardiomegaly OSSEOUS STRUCTURES: No significant abnormalities. VISUALIZED UPPER ABDOMEN: Normal. OTHER FINDINGS: None. IMPRESSION: Increasing pulmonary edema
--- NOTE | 2016-04-21 12:13 | RAD ---
HISTORY: ETT placement COMPARISON: Earlier same day FINDINGS: LUNGS: There is moderate vascular congestion and bilateral pleural effusions layered along the major and minor fissures. PLEURA: As above CARDIOVASCULAR: Mild cardiomegaly. OSSEOUS STRUCTURES: No significant abnormalities. VISUALIZED UPPER ABDOMEN: Normal. OTHER FINDINGS: The endotracheal tube is in satisfactory position. IMPRESSION: Endotracheal tube in satisfactory position. Moderate vascular congestion
[2016-04-21] MEDS: Meropenem 500 MG in Sodium Chloride 0.9% 100 ML IVPB SCH ×2 (12:34→22:11)
--- NOTE | 2016-04-21 14:41 | CARD ---
APPROVED REPORT EKG Measurement Heart [id number] [place] 168P [id number] <Conclusion> Sinus rhythm with frequent and consecutive premature ventricular complexes Rightward axis Low voltage QRS Septal infarct, age undetermined Abnormal ECG
[2016-04-21 16:35] LABS: ARTERIAL BLOOD GAS HCO3 24.2 mmol/L (21-28); ARTERIAL BLOOD GAS O2 CAPACITY 19.4 mL/dl (16-24); ARTERIAL BLOOD GAS PH 7.39 (7.35-7.45); ARTERIAL BLOOD HGB O2 SAT 91.6 % (95.0-98.0); CARBOXYHEMOGLOBIN 1.1 % (0.5-1.5); METHEMOGLOBIN 0.3 % (0.0-3.0)
--- NOTE | 2016-04-21 16:57 | CP.PCM.PN ---
<Ezequiel Cota - Last Filed: 04/21/16 16:54> Subjective - Date & Time of Evaluation Date of Evaluation: 04/21/16 Time of Evaluation: 09:25 - Subjective Subjective: Pt was seen and examined at bedside. Pt is sedated and intubated. As per ICU, pt was hypoxic despite Bipap with Fi02 of 100 and was decided to intubate the pt yesterday. Pt is for HD today. Pt is also having chest tube placed by surgery for loculated pleural effusion. Pt is on pressor support. Objective - Vital Signs/Intake and Output Vital Signs (last 24 hours): Temp Pulse Resp BP Pulse Ox 97.1 F L 73 16 107/50 L 96 04/21/16 12:00 04/21/16 15:00 04/21/16 07:28 04/21/16 15:00 04/21/16 15:00 Intake and Output: 04/21/16 04/21/16 06:59 18:59 Intake Total 289 Output Total 0 Balance 289 - Medications Medications: Current Medications Albuterol/Ipratropium (Duoneb 3 Mg/0.5 Mg (3 Ml) Ud) 3 ml IH [id number] PRN PRN Reason: Shortness of Breath Calcium Acetate (Phoslo) 667 mg PO WM SIMON Last Admin: 04/21/16 08:52 Dose: Not Given Heparin Sodium (Porcine) (Heparin) 5,000 units SC Q12 SIMON PRN Reason: Protocol Last Admin: 04/21/16 10:08 Dose: Not Given Propofol (Diprivan) 100 mls @ 2.36 mls/hr IV .Q24H PRN; Protocol; 5 MCG/KG/MIN PRN Reason: TITRATE PER MD ORDER Last Titration: 04/21/16 08:25 Dose: 0 mcg/kg/min Norepinephrine Bitartrate 4 mg (/ Dextrose) 254 mls @ 15.24 mls/hr IV .[id number] PRN; Protocol; 4 MCG/MIN PRN Reason: TITRATE PER MD ORDER Last Titration: 04/21/16 03:55 Dose: 8 mcg/min Meropenem 500 mg/ Sodium (Chloride) 100 mls @ 100 mls/hr IVPB Q12 SIMON PRN Reason: Protocol Stop: 04/28/16 10:01 Last Admin: 04/21/16 12:34 Dose: 100 mls/hr Phenylephrine HCl 40 mg/ (Sodium Chloride) 254 mls @ 38.1 mls/hr IV .Q6H40M PRN ; Protocol; 100 MCG/MIN PRN Reason: TITRATE PER MD ORDER Last Admin: 04/21/16 10:24 Dose: 38.1 mls/hr Vasopressin 20 units/ Sodium (Chloride) 101 mls @ 9.09 mls/hr IV .Q11H7M SIMON; 0.03 U/MIN PRN Reason: Protocol Last Admin: 04/21/16 09:00 Dose: 9.09 mls/hr Lactulose (Enulose) 20 gm PO BID SIMON Last Admin: 04/20/16 18:14 Dose: Not Given Lorazepam (Ativan) 2 mg IVP Q2H PRN; Protocol PRN Reason: Agitation Last Admin: 04/21/16 14:03 Dose: 2 mg Midodrine (Proamatine) 10 mg PO Q12H SIMON Last Admin: 04/20/16 22:48 Dose: 10 mg Morphine Sulfate (Morphine) 2 mg IVP Q4H PRN PRN Reason: Pain, moderate (4-7) Last Admin: 04/21/16 10:59 Dose: 2 mg Pantoprazole Sodium (Protonix Inj) 40 mg IVP DAILY [facility] Last Admin: 04/20/16 11:36 Dose: 40 mg Rifaximin (Xifaxan) 550 mg PO BID SIMON PRN Reason: Protocol Last Admin: 04/20/16 18:14 Dose: Not Given - Labs Labs: 04/21/16 06:00 04/21/16 06:00 PT 12.4 Seconds (9.9-11.8) H 04/19/16 12:56 INR 1.15 (0.93-1.08) H 04/19/16 12:56 APTT 32.2 Seconds (23.7-30.8) H 04/21/16 06:00 - Constitutional Appears: Older Than Stated Age - Head Exam Head Exam: ATRAUMATIC - Eye Exam Eye Exam: Normal appearance, PERRL Pupil Exam: NORMAL ACCOMODATION, PERRL - ENT Exam ENT Exam: Mucous Membranes Moist - Respiratory Exam Respiratory Exam: Decreased Breath Sounds, Rales, Rhonchi - Cardiovascular Exam Cardiovascular Exam: REGULAR RHYTHM, +S1, +S2 - GI/Abdominal Exam GI & Abdominal Exam: Distended, Hypoactive Bowel Sounds - Neurological Exam Neurological Exam: absent: Alert, Awake - Skin Skin Exam: Dry, Intact, Normal Color, Warm Assessment and Plan - Assessment and Plan (Free Text) Assessment: 50 yo male with PMH of ESRD on HD (T,,S) cirrhosis, hep C, alcohol abuse, and h/o cocaine and heroin use presented with hypoxemic respiratory failure and AMS. Currently he is intubated on levophed, phenylephrine and vasopresson. Surgery placed a chest tube on right side. Right femoral central line placed. 50 M with PMHx of ESRD on HD (,,S) cirrhosis, hep C, alcohol abuse, and polysubstance abuse (heroin/cocaine) admitted with AMS 2/2 drug intoxication vs encephalopathy. Pt to receiving HD today, will repeat cxr to fu congestion. As per GI, possible US guided paracentesis to reevaluate SAAG, TP, and r/o SBP. Pt intubated following hypoxic respiratory failure on bipap with fi02 of 100. CTA was negative for PE, however revealed a new large r/s loculated pleurfal effusion and b/l lower atelectasis. Surgery consulted and a chest tube was placed. HD was completed today. Pt remains on pressor support and intubated. Plan as per ICU team: Neuro -AMS 2/2 drug overdose v. uremia v. hepatic encephalopathy - pt is awake and alert, moving all 4 extremities - drug screen pending - hold propofol due to low BP - ativan and morphine - will treat empirically for hepatic encephalopathy - cont to monitor cardio - Low BP - levophed and vasopresson, and phenylephrine through central line - midodrine BID - echo pending - cont to monitor - maintain MAP>65 - cardiology following pulm - CTA showed no PE, bilateral pleural effusions R>L - ABG showed low O2, repeat in afternoon - Chest tube placed by surgery, serosanganous fluid - surgery following - Saturations improved after chest tube placement - intubated Fio2 100%, peep 8 - cont to monitor - aspiration precaution, HOB >35 GI - h/o hep c and ascites - abd US showed moderate ascites with mild hepatosplenomegaly and moderate bilateral pleural effusions - on lactulose and rifaxmine for empiric treatment for hepatic encephalopathy - titrate lactulose to 2-3 BM per day - paracentesis is ordered - GI following - NPO, pt is intubated with OG tube - protonix ppx Renal - ESRD on HD - patient will go for HD today - nephro consult, Dr. Gonzalez - monitor electrolytes, replace as needed endo - fingerstick q6h - D5 with medication - monitor glucose ID - afebrile without leukocytosis - bilateral pleural effusion - start meropenem and vanco - received zosyn overnight - blood cx neg after 24 hours - procalcitonin mildly elevated - repeat procalcitonin in afternoon - lactate in wnl - ID following, Dr. Millard d/w attending <Luis Villanueva MD - Last Filed: 04/21/16 17:48> Objective - Vital Signs/Intake and Output Vital Signs (last 24 hours): Temp Pulse Resp BP Pulse Ox 97.1 F L 73 16 107/50 L 96 04/21/16 12:00 04/21/16 15:00 04/21/16 07:28 04/21/16 15:00 04/21/16 15:00 Intake and Output: 04/21/16 04/21/16 06:59 18:59 Intake Total 289 Output Total 0 Balance 289 - Medications Medications: Current Medications Albuterol/Ipratropium (Duoneb 3 Mg/0.5 Mg (3 Ml) Ud) 3 ml IH [id number] PRN PRN Reason: Shortness of Breath Calcium Acetate (Phoslo) 667 mg PO WM [facility] Last Admin: 04/21/16 08:52 Dose: Not Given Heparin Sodium (Porcine) (Heparin) 5,000 units SC Q12 SIMON PRN Reason: Protocol Last Admin: 04/21/16 10:08 Dose: Not Given Propofol (Diprivan) 100 mls @ 2.36 mls/hr IV .Q24H PRN; Protocol; 5 MCG/KG/MIN PRN Reason: TITRATE PER MD ORDER Last Titration: 04/21/16 08:25 Dose: 0 mcg/kg/min Norepinephrine Bitartrate 4 mg (/ Dextrose) 254 mls @ 15.24 mls/hr IV .[id number] PRN; Protocol; 4 MCG/MIN PRN Reason: TITRATE PER MD ORDER Last Titration: 04/21/16 03:55 Dose: 8 mcg/min Meropenem 500 mg/ Sodium (Chloride) 100 mls @ 100 mls/hr IVPB Q12 SIMON PRN Reason: Protocol Stop: 04/28/16 10:01 Last Admin: 04/21/16 12:34 Dose: 100 mls/hr Phenylephrine HCl 40 mg/ (Sodium Chloride) 254 mls @ 38.1 mls/hr IV .Q6H40M PRN ; Protocol; 100 MCG/MIN PRN Reason: TITRATE PER MD ORDER Last Admin: 04/21/16 10:24 Dose: 38.1 mls/hr Vasopressin 20 units/ Sodium (Chloride) 101 mls @ 9.09 mls/hr IV .Q11H7M SIMON; 0.03 U/MIN PRN Reason: Protocol Last Admin: 04/21/16 09:00 Dose: 9.09 mls/hr Lactulose (Enulose) 20 gm PO BID [facility] Last Admin: 04/20/16 18:14 Dose: Not Given Lorazepam (Ativan) 2 mg IVP Q2H PRN; Protocol PRN Reason: Agitation Last Admin: 04/21/16 14:03 Dose: 2 mg Midodrine (Proamatine) 10 mg PO Q12H SIMON Last Admin: 04/20/16 22:48 Dose: 10 mg Morphine Sulfate (Morphine) 2 mg IVP Q4H PRN PRN Reason: Pain, moderate (4-7) Last Admin: 04/21/16 10:59 Dose: 2 mg Pantoprazole Sodium (Protonix Inj) 40 mg IVP DAILY [facility] Last Admin: 04/20/16 11:36 Dose: 40 mg Rifaximin (Xifaxan) 550 mg PO BID SIMON PRN Reason: Protocol Last Admin: 04/20/16 18:14 Dose: Not Given - Labs Labs: 04/21/16 06:00 04/21/16 06:00 PT 12.4 Seconds (9.9-11.8) H 04/19/16 12:56 INR 1.15 (0.93-1.08) H 04/19/16 12:56 APTT 32.2 Seconds (23.7-30.8) H 04/21/16 06:00 Attending/Attestation - Attestation I have personally seen and examined this patient.: Yes I have fully participated in the care of the patient.: Yes I have reviewed all pertinent clinical information, including history, physical exam and plan: Yes Notes (Text): Patient was seen and examined with medical record librarian .Agreed with resident assessment and plan. 50 yrs old male with PMH of ESRD on HD, Chronic liver disease, drug abuse,HTN was admitted with change of mental status, hypothermia now intubated for Resp Failure due to bilateral Pleural effusion and posssible aspiration Pneumonia on IV antibiotics as per ID. Patient is SP chest tube, we will follow up pleural fluid studies. Patient is also hypotensive requiring pressors. Critical care team ,cardiology and Nephrology following Prognosis is poor.
[2016-04-21 18:00] LABS: ADD MANUAL DIFF? NO
[2016-04-21 18:15] LABS: ALB/GLOB RATIO 0.7 (1.1-1.8); BILIRUBIN,TOTAL 1.8 mg/dL (0.2-1.3); CALCIUM 7.6 mg/dL (8.4-10.5); POTASSIUM 3.3 mmol/L (3.6-5.0); TOTAL PROTEIN 4.7 g/dL (5.8-8.3)
[2016-04-21 18:41] LABS: BASO # 0.03 K/mm3 (0.0-2.0); BASO % 0.2 % (0.0-3.0); EOS # 0.1 (0.0-0.7); EOS % 0.8 % (1.5-5.0); GRAN # 11.45 (1.4-6.5); GRAN % 80.1 % (50.0-68.0); HEMATOCRIT 44.8 % (42.0-52.0); LYMPH % 7.1 % (22.0-35.0); MEAN CELL VOLUME 92.6 fL (80.0-105.0); MEAN CORPUSCULAR HGB CONC 32.4 g/dl (31.0-37.0); MEAN PLATELET VOLUME 11.2 fl (7.0-11.0); MONO # 1.7 (0.1-0.6); MONO % 11.8 % (1.0-6.0); PLATELET COUNT 113 10^3/uL (120.0-450.0); RED CELL DISTRIBUTION WIDTH 15.6 % (11.5-14.5); WHITE BLOOD COUNT 14.3 10^3/ul (4.5-11.0)
[2016-04-22 06:19] LABS: ARTERIAL BLOOD GAS HCO3 22.7 mmol/L (21-28); ARTERIAL BLOOD GAS O2 CAPACITY 20.1 mL/dl (16-24); ARTERIAL BLOOD GAS O2 CONTENT 19.3 ML/dl (15-23); ARTERIAL BLOOD GAS PH 7.32 (7.35-7.45); ARTERIAL BLOOD HGB O2 SAT 94.7 % (95.0-98.0); HHB 3.7 % (0-5); METHEMOGLOBIN 0.6 % (0.0-3.0)
[2016-04-22 06:50] LABS: ADD MANUAL DIFF? NO
[2016-04-22 07:11] LABS: BASO # 0.04 K/mm3 (0.0-2.0); BASO % 0.3 % (0.0-3.0); EOS # 0.2 (0.0-0.7); EOS % 1.4 % (1.5-5.0); GRAN # 9.25 (1.4-6.5); GRAN % 77.7 % (50.0-68.0); HEMATOCRIT 43.7 % (42.0-52.0); LYMPH # 0.6 (1.2-3.4); LYMPH % 5.4 % (22.0-35.0); MEAN CORPUSCULAR HEMOGLOBIN 29.5 pg (25.0-35.0); MEAN PLATELET VOLUME 12.9 fl (7.0-11.0); MONO # 1.8 (0.1-0.6); MONO % 15.2 % (1.0-6.0); PLATELET COUNT 125 10^3/uL (120.0-450.0); RED CELL DISTRIBUTION WIDTH 15.4 % (11.5-14.5); WHITE BLOOD COUNT 11.9 10^3/ul (4.5-11.0)
[2016-04-22] MEDS ORDERED: Albumin Human 5% (12.5 gm/250 ml) IV ONE ×3 (07:15→14:25)
[2016-04-22 07:20] LABS: ALB/GLOB RATIO 0.7 (1.1-1.8); BILIRUBIN,TOTAL 1.5 mg/dL (0.2-1.3); MAGNESIUM 1.8 mg/dL (1.7-2.2); POTASSIUM 3.7 mmol/L (3.6-5.0); TOTAL PROTEIN 4.7 g/dL (5.8-8.3)
[2016-04-22] MEDS ORDERED: DOPamine 400mg/250ml D5W 250 ML IV PRN (08:15)
[2016-04-22 08:29] LABS: ARTERIAL BLOOD GAS HCO3 23.7 mmol/L (21-28); ARTERIAL BLOOD GAS O2 CAPACITY 18.8 mL/dl (16-24); ARTERIAL BLOOD GAS O2 CONTENT 17.6 ML/dl (15-23); ARTERIAL BLOOD GAS PH 7.37 (7.35-7.45); ARTERIAL BLOOD HGB O2 SAT 92.8 % (95.0-98.0); CARBOXYHEMOGLOBIN 0.9 % (0.5-1.5); HHB 6.2 % (0-5); METHEMOGLOBIN 0.1 % (0.0-3.0)
--- NOTE | 2016-04-22 08:31 | CP.PCM.PN ---
<Foster Santoyo - Last Filed: 04/22/16 13:12> Subjective - Date & Time of Evaluation Date of Evaluation: 04/22/16 Time of Evaluation: 08:27 - Subjective Subjective: Medicine PGY1 - GI service Patient seen and examined at bedside in the ICU this morning. Patient is intubated and sedated on pressors. Patient hypotensive despite levophed, phenylephrine and vasopressin. Prognosis guarded. Objective - Vital Signs/Intake and Output Vital Signs (last 24 hours): Temp Pulse Resp BP Pulse Ox 97.0 F L 82 16 101/39 L 87 L 04/22/16 00:00 04/22/16 06:21 04/21/16 07:28 04/22/16 06:21 04/22/16 05:40 Intake and Output: 04/22/16 04/22/16 06:59 18:59 Intake Total 0 Balance 0 - Medications Medications: Current Medications Albuterol/Ipratropium (Duoneb 3 Mg/0.5 Mg (3 Ml) Ud) 3 ml IH [id number] PRN PRN Reason: Shortness of Breath Calcium Acetate (Phoslo) 667 mg PO WM SIMON Last Admin: 04/21/16 17:58 Dose: 667 mg Heparin Sodium (Porcine) (Heparin) 5,000 units SC Q12 SIMON PRN Reason: Protocol Last Admin: 04/21/16 22:10 Dose: 5,000 units Hydrocortisone Sodium Succinate (Solu-Cortef) 50 mg IVP Q6H SIMON Propofol (Diprivan) 100 mls @ 2.36 mls/hr IV .Q24H PRN; Protocol; 5 MCG/KG/MIN PRN Reason: TITRATE PER MD ORDER Last Titration: 04/21/16 08:25 Dose: 0 mcg/kg/min Norepinephrine Bitartrate 4 mg (/ Dextrose) 254 mls @ 15.24 mls/hr IV .[id number] PRN; Protocol; 4 MCG/MIN PRN Reason: TITRATE PER MD ORDER Last Titration: 04/22/16 06:24 Dose: 30 mcg/min Meropenem 500 mg/ Sodium (Chloride) 100 mls @ 100 mls/hr IVPB Q12 SIMON PRN Reason: Protocol Stop: 04/28/16 10:01 Last Admin: 04/21/16 22:11 Dose: 100 mls/hr Phenylephrine HCl 40 mg/ (Sodium Chloride) 254 mls @ 38.1 mls/hr IV .Q6H40M PRN ; Protocol; 100 MCG/MIN PRN Reason: TITRATE PER MD ORDER Last Titration: 04/22/16 05:15 Dose: 120 mcg/min Vasopressin 20 units/ Sodium (Chloride) 101 mls @ 9.09 mls/hr IV .Q11H7M SIMON; 0.03 U/MIN PRN Reason: Protocol Last Admin: 04/22/16 05:15 Dose: 9.09 mls/hr Lactulose (Enulose) 20 gm PO BID SIMON Last Admin: 04/21/16 18:38 Dose: 20 gm Lorazepam (Ativan) 2 mg IVP Q2H PRN; Protocol PRN Reason: Agitation Last Admin: 04/21/16 14:03 Dose: 2 mg Midodrine (Proamatine) 10 mg PO Q12H SIMON Last Admin: 04/21/16 22:11 Dose: 10 mg Morphine Sulfate (Morphine) 2 mg IVP Q4H PRN PRN Reason: Pain, moderate (4-7) Last Admin: 04/21/16 10:59 Dose: 2 mg Pantoprazole Sodium (Protonix Inj) 40 mg IVP DAILY [facility] Last Admin: 04/21/16 17:58 Dose: 40 mg Rifaximin (Xifaxan) 550 mg PO BID SIMON PRN Reason: Protocol Last Admin: 04/21/16 17:58 Dose: 550 mg - Labs Labs: 04/22/16 06:30 04/22/16 06:30 PT 12.4 Seconds (9.9-11.8) H 04/19/16 12:56 INR 1.15 (0.93-1.08) H 04/19/16 12:56 APTT 32.2 Seconds (23.7-30.8) H 04/21/16 06:00 - Constitutional Appears: In Acute Distress, Older Than Stated Age, Chronically Ill - Head Exam Head Exam: ATRAUMATIC, NORMOCEPHALIC - ENT Exam ENT Exam: Mucous Membranes Dry - Respiratory Exam Respiratory Exam: Decreased Breath Sounds, Rhonchi. absent: Rales, Wheezes - Cardiovascular Exam Cardiovascular Exam: +S1, +S2, Murmur - GI/Abdominal Exam GI & Abdominal Exam: Soft, Hypoactive Bowel Sounds. absent: Distended, Firm, Guarding, Tenderness, Rebound - Extremities Exam Extremities Exam: absent: Pedal Edema, Tenderness - Neurological Exam Neurological Exam: absent: Alert, Awake, Oriented x3 - Skin Skin Exam: Dry, Intact, Warm Assessment and Plan - Assessment and Plan (Free Text) Assessment: 50yo male with history of CAD s/p CABG, chronic Hepatitis C, ESRD on hemodialysis (), polysubstance abuse admitted to ICU with altered mental status. Currently in septic shock likely secondary to aspriation pneumonia. 1. Altered mental status 2. Ascites 3. Chronic hepatitis C 4. Septic shock 5. ESRD on hemodialysis 6. CAD Plan: -Altered mental status may be 2/2 drug abuse, uremia, or hepatic encephalopathy , or multifactorial -No definite diagnosis of cirrhosis on imaging, but in setting of thrombocytopenia, hypoalbuminemia, elevated INR, history of hep C and asterixis on prior examination, patient has decompensated cirrhosis until proven otherwise -Continue lactulose 20gm BID, titrate to 2-3 bowel movements per day -ammonia is unremarkable -Pending fluid analysis of US guided paracentesis to reevaluate SAAG, TP, and r/ o SBP -Paracentesis from 09/30/15 had a SAAG > 1.1 suggestive of portal hypertension -Echocardiogram revealed LVEF of 59%; see full report -Abdominal US reviewed; bilateral pleural effusions and moderate abdominal ascites; mild hepatosplenomegaly -Continue current medical management as per ICU/primary team -Will continue to monitor and make recommendations as indicated -Prognosis guarded; Patient in septic shock likely secondary to aspiration pneumonia Patient seen and case discussed with attending, Dr. Molina <Dwayne Molina - Last Filed: 04/22/16 14:58> Objective - Vital Signs/Intake and Output Vital Signs (last 24 hours): Temp Pulse Resp BP Pulse Ox 97.4 F L 97 H 16 94/63 L 92 L 04/22/16 12:00 04/22/16 12:00 04/22/16 12:00 04/22/16 12:00 04/22/16 12:00 Intake and Output: 04/22/16 04/22/16 06:59 18:59 Intake Total 0 Balance 0 - Medications Medications: Current Medications Albuterol/Ipratropium (Duoneb 3 Mg/0.5 Mg (3 Ml) Ud) 3 ml IH [id number] PRN PRN Reason: Shortness of Breath Calcium Acetate (Phoslo) 667 mg PO WM [facility] Last Admin: 04/22/16 12:07 Dose: Not Given Heparin Sodium (Porcine) (Heparin) 5,000 units SC Q12 SIMON PRN Reason: Protocol Last Admin: 04/22/16 12:53 Dose: Not Given Hydrocortisone Sodium Succinate (Solu-Cortef) 50 mg IVP Q6H [facility] Last Admin: 04/22/16 10:33 Dose: 50 mg Propofol (Diprivan) 100 mls @ 2.36 mls/hr IV .Q24H PRN; Protocol; 5 MCG/KG/MIN PRN Reason: TITRATE PER MD ORDER Last Titration: 04/21/16 08:25 Dose: 0 mcg/kg/min Norepinephrine Bitartrate 4 mg (/ Dextrose) 254 mls @ 15.24 mls/hr IV .[id number] PRN; Protocol; 4 MCG/MIN PRN Reason: TITRATE PER MD ORDER Last Admin: 04/22/16 13:53 Dose: 76.2 mls/hr Meropenem 500 mg/ Sodium (Chloride) 100 mls @ 100 mls/hr IVPB Q12 SIMON PRN Reason: Protocol Stop: 04/28/16 10:01 Last Admin: 04/22/16 10:34 Dose: 100 mls/hr Phenylephrine HCl 40 mg/ (Sodium Chloride) 254 mls @ 38.1 mls/hr IV .Q6H40M PRN ; Protocol; 100 MCG/MIN PRN Reason: TITRATE PER MD ORDER Last Titration: 04/22/16 08:50 Dose: 0 mcg/min Vasopressin 20 units/ Sodium (Chloride) 101 mls @ 9.09 mls/hr IV .Q11H7M SIMON; 0.03 U/MIN PRN Reason: Protocol Last Admin: 04/22/16 05:15 Dose: 9.09 mls/hr Dopamine HCl/Dextrose (Dopamine 400mg/250ml D5w) 250 mls @ 5.899 mls/hr IV .Q24H PRN; Protocol; 2 MCG/KG/MIN PRN Reason: TITRATE PER MD ORDER Last Titration: 04/22/16 13:12 Dose: 0 mcg/kg/min Lactulose (Enulose) 20 gm PO BID [facility] Last Admin: 04/22/16 10:32 Dose: 20 gm Lorazepam (Ativan) 2 mg IVP Q2H PRN; Protocol PRN Reason: Agitation Last Admin: 04/21/16 14:03 Dose: 2 mg Midodrine (Proamatine) 10 mg PO Q12H [facility] Last Admin: 04/22/16 10:34 Dose: 10 mg Morphine Sulfate (Morphine) 2 mg IVP Q4H PRN PRN Reason: Pain, moderate (4-7) Last Admin: 04/21/16 10:59 Dose: 2 mg Pantoprazole Sodium (Protonix Inj) 40 mg IVP DAILY [facility] Last Admin: 04/22/16 10:33 Dose: 40 mg - Labs Labs: 04/22/16 06:30 04/22/16 06:30 PT 12.4 Seconds (9.9-11.8) H 04/19/16 12:56 INR 1.15 (0.93-1.08) H 04/19/16 12:56 APTT 32.2 Seconds (23.7-30.8) H 04/21/16 06:00 Attending/Attestation - Attestation I have personally seen and examined this patient.: Yes I have fully participated in the care of the patient.: Yes I have reviewed all pertinent clinical information, including history, physical exam and plan: Yes Notes (Text): 04/22/16 14:53 Patient seen and examined with GI fellow and medical van driver. Patient remains in ICU critical care, intubated, on 3 agents for vasopressor support. s/p paracentesis today with 3 liters fluid removed. Review of systems not available, patient intubated. CAD/CABG HCV decompensated cirrhosis ESRD on HD Septic shock, currently on vasopressor support Ascites, s/p paracentesis Polysubstance abuse - Await results of ascitic fluid studies - Patient clinical condition suggestive of decompensated cirrhosis, would continue with lactulose therapy. Titrate so patient has 3 bowel movements daily. - Continue with antibiotic therapy as per critical care team - No contraindication to beginning tube feedings as tolerated - Overall prognosis remains quite poor. Will continue to monitor patient clinical course.
--- NOTE | 2016-04-22 08:51 | CP.PCM.PN ---
Subjective - Date & Time of Evaluation Date of Evaluation: 04/22/16 Time of Evaluation: 08:48 - Subjective Subjective: SURGERY CONSULT NOTE FOR DR. HENAO 50M seen and examined at bedside. Patient intubated but initiating own breath. Able to follow commands. Objective - Vital Signs/Intake and Output Vital Signs (last 24 hours): Temp Pulse Resp BP Pulse Ox 97.0 F L 82 16 101/39 L 87 L 04/22/16 00:00 04/22/16 06:21 04/21/16 07:28 04/22/16 06:21 04/22/16 05:40 Intake and Output: 04/22/16 04/22/16 06:59 18:59 Intake Total 0 Balance 0 - Medications Medications: Current Medications Albuterol/Ipratropium (Duoneb 3 Mg/0.5 Mg (3 Ml) Ud) 3 ml IH [id number] PRN PRN Reason: Shortness of Breath Calcium Acetate (Phoslo) 667 mg PO WM SIMON Last Admin: 04/21/16 17:58 Dose: 667 mg Heparin Sodium (Porcine) (Heparin) 5,000 units SC Q12 SIMON PRN Reason: Protocol Last Admin: 04/21/16 22:10 Dose: 5,000 units Hydrocortisone Sodium Succinate (Solu-Cortef) 50 mg IVP Q6H SIMON Propofol (Diprivan) 100 mls @ 2.36 mls/hr IV .Q24H PRN; Protocol; 5 MCG/KG/MIN PRN Reason: TITRATE PER MD ORDER Last Titration: 04/21/16 08:25 Dose: 0 mcg/kg/min Norepinephrine Bitartrate 4 mg (/ Dextrose) 254 mls @ 15.24 mls/hr IV .[id number] PRN; Protocol; 4 MCG/MIN PRN Reason: TITRATE PER MD ORDER Last Titration: 04/22/16 06:24 Dose: 30 mcg/min Meropenem 500 mg/ Sodium (Chloride) 100 mls @ 100 mls/hr IVPB Q12 SIMON PRN Reason: Protocol Stop: 04/28/16 10:01 Last Admin: 04/21/16 22:11 Dose: 100 mls/hr Phenylephrine HCl 40 mg/ (Sodium Chloride) 254 mls @ 38.1 mls/hr IV .Q6H40M PRN ; Protocol; 100 MCG/MIN PRN Reason: TITRATE PER MD ORDER Last Titration: 04/22/16 05:15 Dose: 120 mcg/min Vasopressin 20 units/ Sodium (Chloride) 101 mls @ 9.09 mls/hr IV .Q11H7M SIMON; 0.03 U/MIN PRN Reason: Protocol Last Admin: 04/22/16 05:15 Dose: 9.09 mls/hr Lactulose (Enulose) 20 gm PO BID SIMON Last Admin: 04/21/16 18:38 Dose: 20 gm Lorazepam (Ativan) 2 mg IVP Q2H PRN; Protocol PRN Reason: Agitation Last Admin: 04/21/16 14:03 Dose: 2 mg Midodrine (Proamatine) 10 mg PO Q12H SIMON Last Admin: 04/21/16 22:11 Dose: 10 mg Morphine Sulfate (Morphine) 2 mg IVP Q4H PRN PRN Reason: Pain, moderate (4-7) Last Admin: 04/21/16 10:59 Dose: 2 mg Pantoprazole Sodium (Protonix Inj) 40 mg IVP DAILY [facility] Last Admin: 04/21/16 17:58 Dose: 40 mg Rifaximin (Xifaxan) 550 mg PO BID SIMON PRN Reason: Protocol Last Admin: 04/21/16 17:58 Dose: 550 mg - Labs Labs: 04/22/16 06:30 04/22/16 06:30 PT 12.4 Seconds (9.9-11.8) H 04/19/16 12:56 INR 1.15 (0.93-1.08) H 04/19/16 12:56 APTT 32.2 Seconds (23.7-30.8) H 04/21/16 06:00 - Constitutional Appears: Other (intubated) - Eye Exam Eye Exam: EOMI Pupil Exam: PERRL - Respiratory Exam Respiratory Exam: Rhonchi (intubated) - Cardiovascular Exam Cardiovascular Exam: REGULAR RHYTHM, +S1, +S2 Additional comments: chest tube in place - 380cc/24hr, no air leak, on suction - GI/Abdominal Exam GI & Abdominal Exam: Soft. absent: Distended, Firm, Guarding, Rigid, Tenderness , Rebound - Neurological Exam Neurological Exam: Alert - Skin Skin Exam: Dry, Intact, Normal Color, Warm Additional comments: edematous Assessment and Plan - Assessment and Plan (Free Text) Assessment: 50M with respiratory failure and pleural effusions, s/p right chest tube placement POD#1 Plan: - Monitor dressing, chest tube placement - daily CXR, monitor chest tube output - Monitor A-line site Further recs discuss with Dr. Sebastián Soto, PGY1
--- NOTE | 2016-04-22 09:07 | PN ---
DATE: 04/22/2016 The patient seen and examined at bedside. He is off of sedation, he is following commands. He is on PRVC as follows, 400/15/10/100-->later tapered down to 60 with 02sat in the range of 94-96 and toelrates PS 7/5. Vital signs on the monitor 52/22 (the patient is likely vasculopath as he has end-stage renal disease and his blood pressure, based on the fact that he is alert and awake and following commands, might be high. A decision to put the arterial line was made). End-tidal CO2 on the monitor 29, heart rate 56. PHYSICAL EXAMINATION: HEAD AND NECK: Atraumatic. LUNGS: Clear to auscultation anteriorly bilaterally. HEART: Regular rate and rhythm. S1, S2 distant. ABDOMEN: Soft, nontender, nondistended. MUSCULOSKELETAL: 1+ bilateral pedal and ankle edema. NEUROLOGIC: The patient moves all extremities spontaneously. SKIN: Moist. PSYCHIATRIC: The patient is following commands. LABORATORIES: WBC 11.9, down from 14.3, platelet count 125, hemoglobin 14. Sodium 133, potassium 3.7, chloride 97, BUN 26, creatinine 4.5 (the patient is on hemodialysis), glucose 130, calcium 7, albumin 1.9, AST 40, ALT 33. ABG on 100% FiO2 is 7.32/44/82, oxygen saturation 96. PTT 32.2. Echocardiogram performed on 04/20/2016 (2 days ago) showed left ventricle is of normal size. There is normal left ventricular wall thickness, left ventricular function is normal. However, right ventricle is mildly dilated, right atrium is moderately dilated, tricuspid valve bioprosthesis noted, moderate tricuspid regurgitation and moderate to severe pulmonary hypertension. Left atrium is mildly dilated. Chest x-ray today showed mild haziness in the left lower lobe. However, overall chest x-ray appears to be the same as yesterday. Yesterday' s chest x-ray showed near complete resolution of the pulmonary edema and effusions seen day before yesterday, minimal vascular congestion, left more than right. MEDICATIONS: Ativan p.r.n., DuoNeb p.r.n., lactulose, heparin subQ, meropenem, morphine p.r.n., norepinephrine 30 mcg per minute, phenylephrine 120 mcg per minute, PhosLo, midodrine 10 mg p.o. q. 12, Protonix 40 mg daily, vancomycin 1 dose was given yesterday, vasopressin 0.03 units per minute, Xifaxan. ASSESSMENT AND PLAN: This is a 50-year-old gentleman with hepatitis C, portopulmonary hypertension, who came with community-acquired pneumonia and likely drug overdose. The patient was intubated for hypoxemic respiratory failure, likely secondary to progression of community-acquired pneumonia in the setting of septic shock. Blood culture negative so far. The patient is on broad-spectrum antibiotics. Hemodynamic support is provided with 2 pressors and vasopressin 0.03 units per minute. Due to difficulty monitoring his blood pressure, A-line was placed by surgical service. NEUROLOGIC: The patient is off of sedation, comfortable, responding to commands. CARDIOVASCULAR: The patient appears to be in septic shock, hemodynamically unstable, on incremental doses of phenylephrine and norepinephrine. He is on vasopressin 0.03 units per minute. Arterial line was placed and pressors titrated/tapered accordingly. Of note, the patient has portopulmonary hypertension, most likely secondary to his chronic liver disease, which also portends poor prognosis. He has hypoalbuminemia, which also portends poor prognosis in the setting of septic shock. Patient was bradycardic-- phenylephrine was tapered off, dopamine started, however later on dopamine was tapered off as well. patient had paracenthesis with 3L removed--became relatively hypotensive--500 cc of 5% albumin was given and 150 cc of 25% albumin was given. NE increased to 30 mcg/min, vaso continued PULMONARY: The patient is intubated for hypoxemic respiratory failure. His chest x-ray substantially improved after draining of the right-sided loculated pleural effusion. Chest tube is in place. We will continue with protective lung ventilation strategy and tidal volume 6-8 mL per predicted body weight with plateau pressure less than 30 to avoid ventilator induced lung injury. Once shock is resolved, we will adhere to conservative fluid management. We will taper FiO2 as tolerated. fi02 tapered down to 60, patient tolerates PS 7/ 5. We will continue with head of bed elevated more than 35 degrees, deep venous thrombosis and gastrointestinal prophylaxis. The patient has bilateral pneumonia and currently is on broad-spectrum antibiotics including meropenem and vancomycin. RENAL: The patient has end-stage renal disease and renal replacement therapy intermittently ongoing. Dr. Gonzalez is following patient from this perspective. ID: The patient has septic shock secondary to pneumonia. Spontaneous bacterial peritonitis cannot be ruled out, but patient is on broad-spectrum antibiotics. We will try to obtain a sample of his peritoneal fluid at bedside. The culture of the pleural effusion as well as chemical and otherwise analysis is pending. Blood and urine culture, procalcitonin as well as sputum culture will be sent as well. ENDOCRINE: We will continue with blood glucose level within 140-180 area according to NICE-SUGAR trial. We will avoid hypoglycemia. GASTROINTESTINAL: The patient is on Protonix for deep venous thrombosis prophylaxis. I would hold enteral nutrition until basal pressor requirement is substantially decreased. We will continue with deep venous thrombosis and gastrointestinal prophylaxis. We will continue with maintaining euglycemia, normothermia and oxygen saturation more than 90%. ccm time 40 min Gabriel Johns MD cc: [id number] TT: 04/22/2016 09:06:34 Confirmation # [id number] Dictation # [id number] en MTDD
[2016-04-22 09:20] LABS: BODY FLUID TYPE PLEURAL
[2016-04-22 09:23] LABS: BF GROSS APPEARANCE CLOUDY (CLEAR); BODY FLUID TOTAL COUNT 100 (0-0)
--- NOTE | 2016-04-22 10:11 | RAD ---
HISTORY: chest tube, comparison COMPARISON: 04/21/2016 FINDINGS: LUNGS: Right-sided chest tube. No pleural effusion or pneumothorax. Small left-sided effusion PLEURA: As above CARDIOVASCULAR: Normal. OSSEOUS STRUCTURES: No significant abnormalities. VISUALIZED UPPER ABDOMEN: Normal. OTHER FINDINGS: Central lines and tubes unchanged IMPRESSION: No active disease.
[2016-04-22] MEDS: Meropenem 500 MG in Sodium Chloride 0.9% 100 ML IVPB SCH ×2 (10:34→23:29)
--- NOTE | 2016-04-22 11:31 | PCM.PROC ---
Procedures Attestation:: I certify that I have explained the specified Operation(s) or Procedure(s), risks, benefits and reasonable alternatives to the Patient and/or other person responsible. The opportunity was given to ask questions and all questions answered - Arterial Line Left Femoral Aseptic technique was employed throughout the procedure: Hand Hygiene done prior to procedure, Full sterile barriers (mask, hair cover, sterile gown, sterile gloves), Chloraprep Antiseptic: 2 minute prep for Femoral Time Out Performed: Yes Pt. placed on Pulse Ox Monitor: Yes Local Anesthesia Used: Lidocaine 1% Amount of Anesthesia Used (mls): 5 Ultrasound Used for Placement: Yes Technique Used: Guide Wire Technique Secured by: Suture Post procedure dressing: Gauze Patient Tolerated Procedure: well Immediate Complications: none
--- NOTE | 2016-04-22 11:35 | CP.CCUPN ---
<Adela Foreman - Last Filed: 04/22/16 15:08> CCU Subjective - Physician Review Subjective (Free Text): PGY-1 ICU progress note. Patient was seen and examined at bedside. Patient remains intubated and is currently on levophed, phenylephrine and vasopresson. Chest tube is in place, on suction without air leaks and produced a total of 450cc. Nurse reports no changes overnight. Surgery is bedside to insert arterial line to measure BP. 04/22/16 11:33 CCU Objective - Vital Signs / Intake & Output Vital Signs (Last 4 hours): Vital Signs Temp Pulse Resp BP Pulse Ox 04/22/16 11:00 101 H 93/62 L 95 04/22/16 10:30 85 96/58 L 97 04/22/16 10:01 102 H 87/60 L 97 04/22/16 10:00 110 H 98 04/22/16 09:54 118 H 04/22/16 09:30 108 H 95/44 L 88 L 04/22/16 09:01 113 H 109/47 L 91 L 04/22/16 09:00 114 H 92 L 04/22/16 08:45 121 H 118/70 92 L 04/22/16 08:30 69 123/64 95 04/22/16 08:23 69 04/22/16 08:22 77 04/22/16 08:21 79 04/22/16 08:20 68 04/22/16 08:19 61 04/22/16 08:18 50 L 04/22/16 08:17 51 L 103/77 91 L 04/22/16 08:16 64 04/22/16 08:10 53 L 117/39 L 04/22/16 08:01 53 L 80/27 L 04/22/16 08:00 97 F L 52 L 16 93 L 04/22/16 07:50 48 L 66/43 L 04/22/16 07:44 56 L 57/30 L 04/22/16 07:40 53 L 58/21 L 04/22/16 07:34 61 52/22 L Intake and Output (Last 8hrs): Intake & Output 04/21/16 04/22/16 04/22/16 22:59 06:59 14:59 Intake Total 1769 0 Output Total 250 Balance 1519 0 Intake: IV 1729 0 Right Femoral 1714 RIGHT FOREARM 15 Tube Feeding 40 Output: Chest Tube Drainage 250 Right 250 Urine 0 Urine, Voided 0 Other: # Bowel Movements 0 - Physical Exam Head: Positive for: Atraumatic, Normocephalic Pupils: Positive for: Sluggish Extroacular Muscles: Positive for: EOMI Conjunctiva: Positive for: Normal Mouth: Positive for: Dry Respiratory/Chest: Positive for: Decreased Breath Sounds, Rhonchi, Other ( intubated). Negative for: Accessory Muscle Use Cardiovascular: Positive for: Regular Rate and Rhythm, Normal S1, S2. Negative for: Murmurs Abdomen: Positive for: Distention, Normal Bowel Sounds. Negative for: Tenderness, Peritoneal Signs Upper Extremity: Positive for: Normal Inspection, Edema. Negative for: Cyanosis Lower Extremity: Positive for: Normal Inspection, Edema. Negative for: CALF TENDERNESS Neurological: Positive for: CN II-XII Intact. Negative for: Speech Normal Skin: Positive for: Warm, Dry, Normal Color. Negative for: Rashes Psychiatric: Positive for: Alert. Negative for: Oriented x 3 - Medications Active Medications: Active Medications Generic Name Dose Route Start Last Admin Trade Name Freq PRN Reason Stop Dose Admin Albuterol/Ipratropium 3 ml 04/20/16 13:13 Duoneb 3 Mg/0.5 Mg (3 Ml) Ud IH [id number] PRN Shortness of Breath Calcium Acetate 667 mg 04/21/16 08:00 04/22/16 10:32 Phoslo PO 667 mg WM SIMON Administration Heparin Sodium (Porcine) 5,000 units 04/21/16 10:00 04/21/16 22:10 Heparin SC 5,000 units Q12 SIMON Administration Protocol Hydrocortisone Sodium Succinate 50 mg 04/22/16 08:30 04/22/16 10:33 Solu-Cortef IVP 50 mg Q6H SIMON Administration Propofol 100 mls @ 2.36 mls/hr 04/20/16 19:13 04/21/16 08:25 Diprivan IV 0 mcg/kg/min .Q24H PRN Titration TITRATE PER MD ORDER Protocol 5 MCG/KG/MIN Norepinephrine Bitartrate 4 mg 254 mls @ 15.24 mls/hr 04/21/16 03:07 04/22/16 08:30 / Dextrose IV 20 mcg/min .[id number] PRN Titration TITRATE PER MD ORDER Protocol 4 MCG/MIN Meropenem 500 mg/ Sodium 100 mls @ 100 mls/hr 04/21/16 10:00 04/22/16 10:34 Chloride IVPB 04/28/16 10:01 100 mls/hr Q12 SIMON Administration Protocol Phenylephrine HCl 40 mg/ 254 mls @ 38.1 mls/hr 04/21/16 08:30 04/22/16 08:50 Sodium Chloride IV 0 mcg/min .[id number] PRN Titration TITRATE PER MD ORDER Protocol 100 MCG/MIN Vasopressin 20 units/ Sodium 101 mls @ 9.09 mls/hr 04/21/16 08:30 04/22/16 05: 15 Chloride IV 9.09 mls/hr .Q11H7M SIMON Administration Protocol 0.03 U/MIN Dopamine HCl/Dextrose 250 mls @ 5.899 mls/hr 04/22/16 08:15 04/22/16 10:40 Dopamine 400mg/250ml D5w IV 4 mcg/kg/min .Q24H PRN Titration TITRATE PER MD ORDER Protocol 2 MCG/KG/MIN Lactulose 20 gm 04/19/16 18:00 04/22/16 10:32 Enulose PO 20 gm BID SIMON Administration Lorazepam 2 mg 04/21/16 08:41 04/21/16 14:03 Ativan IVP 2 mg Q2H PRN Administration Agitation Protocol Midodrine 10 mg 04/20/16 22:00 04/22/16 10:34 Proamatine PO 10 mg Q12H SIMON Administration Morphine Sulfate 2 mg 04/21/16 08:41 04/21/16 10:59 Morphine IVP 2 mg Q4H PRN Administration Pain, moderate (4-7) Pantoprazole Sodium 40 mg 04/20/16 10:00 04/22/16 10:33 Protonix Inj IVP 40 mg DAILY SIMON Administration Rifaximin 550 mg 04/19/16 18:00 04/22/16 10:32 Xifaxan PO 550 mg BID SIMON Administration Protocol - Patient Studies Lab Studies: Lab Studies 04/22/16 04/22/16 04/22/16 Range/Units 09:00 08:20 06:30 WBC 11.9 H (4.5-11.0) 10^3/ul RBC 4.75 (3.5-6.1) 10^6/uL Hgb 14.0 (14.0-18.0) gm/dL Hct 43.7 (42.0-52.0) % MCV 92.0 (80.0-105.0) fL MCH 29.5 (25.0-35.0) pg MCHC 32.0 (31.0-37.0) g/dl RDW 15.4 H (11.5-14.5) % Plt Count 125 (120.0-450.0) 10^3/uL MPV 12.9 H (7.0-11.0) fl Gran % 77.7 H (50.0-68.0) % Lymph % (Auto) 5.4 L (22.0-35.0) % [place] % (Auto) 15.2 H (1.0-6.0) % Eos % (Auto) 1.4 L (1.5-5.0) % Baso % (Auto) 0.3 (0.0-3.0) % Gran # 9.25 H (1.4-6.5) Lymph # 0.6 L (1.2-3.4) [place] # 1.8 H (0.1-0.6) Eos # 0.2 (0.0-0.7) Baso # 0.04 (0.0-2.0) K/mm3 pCO2 41 (35-45) mm/Hg pO2 66.0 L (80-100) mm/Hg HCO3 23.7 (21-28) mmol/L ABG pH 7.37 (7.35-7.45) ABG Total CO2 25.0 (22-28) mmol.L ABG O2 Saturation 93.7 L (95-98) % ABG O2 Content 17.6 (15-23) ML/dl ABG Base Excess -1.5 (-2.0-3.0) mmol/L ABG Hemoglobin 13.5 (11.7-17.4) g/dL ABG Carboxyhemoglobin 0.9 (0.5-1.5) % POC ABG HHb (Measured) 6.2 H (0-5) % ABG Methemoglobin 0.1 (0.0-3.0) % ABG O2 Capacity 18.8 (16-24) mL/dl Hgb O2 Saturation 92.8 L (95.0-98.0) % FiO2 100.0 % Sodium 133 (132-148) mmol/L Potassium 3.7 (3.6-5.0) mmol/L Chloride 97 L (98-107) mmol/L Carbon Dioxide 29 (21-33) mmol/L Anion Gap 11 (10-20) BUN 26 H (7-21) mg/dL Creatinine 4.5 H (0.5-1.4) mg/dL Est GFR ( Amer) 17 Est GFR (Non-Af Amer) 14 POC Glucose (mg/dL) (65-110) mg/dL Random Glucose 130 H (70-110) mg/dL Calcium 7.0 L (8.4-10.5) mg/dL Phosphorus 5.0 H (2.5-4.5) mg/dL Magnesium 1.8 (1.7-2.2) mg/dL Total Bilirubin 1.5 H (0.2-1.3) mg/dL AST 40 (15-59) U/L ALT 33 (7-56) U/L Alkaline Phosphatase 222 H (38-133) U/L Total Protein 4.7 L (5.8-8.3) g/dL Albumin 1.9 L (3.0-4.8) g/dL Globulin 2.8 gm/dL Albumin/Globulin Ratio 0.7 L (1.1-1.8) Procalcitonin (0.19-0.49) NG/ML Fluid Source Pleural Fluid Appearance Cloudy (CLEAR) Fluid WBC 587.0 H (0.0-300.0) /uL Fluid RBC 9000.0 H (0.0-0.0) /uL Fluid Tot Cell Count 100 H (0-0) Fluid Neutrophils 76.3 H (0-0) % Fluid Lymphocytes 23.7 H (0-0) % Fld Monocyte/Macrophag 0 (0-0) % Fluid Comment TEST NOT PERFORMED Pleural pH 8.0 04/22/16 04/21/16 04/21/16 Range/Units 05:30 23:46 21:39 WBC (4.5-11.0) 10^3/ul RBC (3.5-6.1) 10^6/uL Hgb (14.0-18.0) gm/dL Hct (42.0-52.0) % MCV (80.0-105.0) fL MCH (25.0-35.0) pg MCHC (31.0-37.0) g/dl RDW (11.5-14.5) % Plt Count (120.0-450.0) 10^3/uL MPV (7.0-11.0) fl Gran % (50.0-68.0) % Lymph % (Auto) (22.0-35.0) % [place] % (Auto) (1.0-6.0) % Eos % (Auto) (1.5-5.0) % Baso % (Auto) (0.0-3.0) % Gran # (1.4-6.5) Lymph # (1.2-3.4) [place] # (0.1-0.6) Eos # (0.0-0.7) Baso # (0.0-2.0) K/mm3 pCO2 44 (35-45) mm/Hg pO2 82.0 (80-100) mm/Hg HCO3 22.7 (21-28) mmol/L ABG pH 7.32 L (7.35-7.45) ABG Total CO2 24.1 (22-28) mmol.L ABG O2 Saturation 96.2 (95-98) % ABG O2 Content 19.3 (15-23) ML/dl ABG Base Excess -3.5 L (-2.0-3.0) mmol/L ABG Hemoglobin 14.5 (11.7-17.4) g/dL ABG Carboxyhemoglobin 1.0 (0.5-1.5) % POC ABG HHb (Measured) 3.7 (0-5) % ABG Methemoglobin 0.6 (0.0-3.0) % ABG O2 Capacity 20.1 (16-24) mL/dl Hgb O2 Saturation 94.7 L (95.0-98.0) % FiO2 100.0 % Sodium (132-148) mmol/L Potassium (3.6-5.0) mmol/L Chloride (98-107) mmol/L Carbon Dioxide (21-33) mmol/L Anion Gap (10-20) BUN (7-21) mg/dL Creatinine (0.5-1.4) mg/dL Est GFR ( Amer) Est GFR (Non-Af Amer) POC Glucose (mg/dL) 139 H 119 H (65-110) mg/dL Random Glucose (70-110) mg/dL Calcium (8.4-10.5) mg/dL Phosphorus (2.5-4.5) mg/dL Magnesium (1.7-2.2) mg/dL Total Bilirubin (0.2-1.3) mg/dL AST (15-59) U/L ALT (7-56) U/L Alkaline Phosphatase (38-133) U/L Total Protein (5.8-8.3) g/dL Albumin (3.0-4.8) g/dL Globulin gm/dL Albumin/Globulin Ratio (1.1-1.8) Procalcitonin (0.19-0.49) NG/ML Fluid Source Fluid Appearance (CLEAR) Fluid WBC (0.0-300.0) /uL Fluid RBC (0.0-0.0) /uL Fluid Tot Cell Count (0-0) Fluid Neutrophils (0-0) % Fluid Lymphocytes (0-0) % Fld Monocyte/Macrophag (0-0) % Fluid Comment Pleural pH 04/21/16 04/21/16 04/21/16 Range/Units 19:54 18:01 17:59 WBC 14.3 H D (4.5-11.0) 10^3/ul RBC 4.84 (3.5-6.1) 10^6/uL Hgb 14.5 (14.0-18.0) gm/dL Hct 44.8 (42.0-52.0) % MCV 92.6 (80.0-105.0) fL MCH 30.0 (25.0-35.0) pg MCHC 32.4 (31.0-37.0) g/dl RDW 15.6 H (11.5-14.5) % Plt Count 113 L (120.0-450.0) 10^3/uL MPV 11.2 H (7.0-11.0) fl Gran % 80.1 H (50.0-68.0) % Lymph % (Auto) 7.1 L (22.0-35.0) % [place] % (Auto) 11.8 H (1.0-6.0) % Eos % (Auto) 0.8 L (1.5-5.0) % Baso % (Auto) 0.2 (0.0-3.0) % Gran # 11.45 H (1.4-6.5) Lymph # 1.0 L (1.2-3.4) [place] # 1.7 H (0.1-0.6) Eos # 0.1 (0.0-0.7) Baso # 0.03 (0.0-2.0) K/mm3 pCO2 (35-45) mm/Hg pO2 (80-100) mm/Hg HCO3 (21-28) mmol/L ABG pH (7.35-7.45) ABG Total CO2 (22-28) mmol.L ABG O2 Saturation (95-98) % ABG O2 Content (15-23) ML/dl ABG Base Excess (-2.0-3.0) mmol/L ABG Hemoglobin (11.7-17.4) g/dL ABG Carboxyhemoglobin (0.5-1.5) % POC ABG HHb (Measured) (0-5) % ABG Methemoglobin (0.0-3.0) % ABG O2 Capacity (16-24) mL/dl Hgb O2 Saturation (95.0-98.0) % FiO2 % Sodium 136 (132-148) mmol/L Potassium 3.3 L (3.6-5.0) mmol/L Chloride 99 (98-107) mmol/L Carbon Dioxide 30 (21-33) mmol/L Anion Gap 10 (10-20) BUN 24 H (7-21) mg/dL Creatinine 4.3 H (0.5-1.4) mg/dL Est GFR ( Amer) 18 Est GFR (Non-Af Amer) 15 POC Glucose (mg/dL) 120 H 115 H (65-110) mg/dL Random Glucose 124 H (70-110) mg/dL Calcium 7.6 L (8.4-10.5) mg/dL Phosphorus (2.5-4.5) mg/dL Magnesium (1.7-2.2) mg/dL Total Bilirubin 1.8 H (0.2-1.3) mg/dL AST 53 (15-59) U/L ALT 38 (7-56) U/L Alkaline Phosphatase 236 H (38-133) U/L Total Protein 4.7 L (5.8-8.3) g/dL Albumin 2.0 L (3.0-4.8) g/dL Globulin 2.7 gm/dL Albumin/Globulin Ratio 0.7 L (1.1-1.8) Procalcitonin (0.19-0.49) NG/ML Fluid Source Fluid Appearance (CLEAR) Fluid WBC (0.0-300.0) /uL Fluid RBC (0.0-0.0) /uL Fluid Tot Cell Count (0-0) Fluid Neutrophils (0-0) % Fluid Lymphocytes (0-0) % Fld Monocyte/Macrophag (0-0) % Fluid Comment Pleural pH 04/21/16 04/21/16 04/21/16 Range/Units 16:33 16:10 13:58 WBC (4.5-11.0) 10^3/ul RBC (3.5-6.1) 10^6/uL Hgb (14.0-18.0) gm/dL Hct (42.0-52.0) % MCV (80.0-105.0) fL MCH (25.0-35.0) pg MCHC (31.0-37.0) g/dl RDW (11.5-14.5) % Plt Count (120.0-450.0) 10^3/uL MPV (7.0-11.0) fl Gran % (50.0-68.0) % Lymph % (Auto) (22.0-35.0) % [place] % (Auto) (1.0-6.0) % Eos % (Auto) (1.5-5.0) % Baso % (Auto) (0.0-3.0) % Gran # (1.4-6.5) Lymph # (1.2-3.4) [place] # (0.1-0.6) Eos # (0.0-0.7) Baso # (0.0-2.0) K/mm3 pCO2 40 (35-45) mm/Hg pO2 65.0 L (80-100) mm/Hg HCO3 24.2 (21-28) mmol/L ABG pH 7.39 (7.35-7.45) ABG Total CO2 25.4 (22-28) mmol.L ABG O2 Saturation 92.9 L (95-98) % ABG O2 Content 18.0 (15-23) ML/dl ABG Base Excess -0.7 (-2.0-3.0) mmol/L ABG Hemoglobin 14.0 (11.7-17.4) g/dL ABG Carboxyhemoglobin 1.1 (0.5-1.5) % POC ABG HHb (Measured) 7.0 H (0-5) % ABG Methemoglobin 0.3 (0.0-3.0) % ABG O2 Capacity 19.4 (16-24) mL/dl Hgb O2 Saturation 91.6 L (95.0-98.0) % FiO2 100.0 % Sodium (132-148) mmol/L Potassium (3.6-5.0) mmol/L Chloride (98-107) mmol/L Carbon Dioxide (21-33) mmol/L Anion Gap (10-20) BUN (7-21) mg/dL Creatinine (0.5-1.4) mg/dL Est GFR ( Amer) Est GFR (Non-Af Amer) POC Glucose (mg/dL) 88 96 (65-110) mg/dL Random Glucose (70-110) mg/dL Calcium (8.4-10.5) mg/dL Phosphorus (2.5-4.5) mg/dL Magnesium (1.7-2.2) mg/dL Total Bilirubin (0.2-1.3) mg/dL AST (15-59) U/L ALT (7-56) U/L Alkaline Phosphatase (38-133) U/L Total Protein (5.8-8.3) g/dL Albumin (3.0-4.8) g/dL Globulin gm/dL Albumin/Globulin Ratio (1.1-1.8) Procalcitonin (0.19-0.49) NG/ML Fluid Source Fluid Appearance (CLEAR) Fluid WBC (0.0-300.0) /uL Fluid RBC (0.0-0.0) /uL Fluid Tot Cell Count (0-0) Fluid Neutrophils (0-0) % Fluid Lymphocytes (0-0) % Fld Monocyte/Macrophag (0-0) % Fluid Comment Pleural pH 04/21/16 04/21/16 04/21/16 Range/Units 12:57 12:23 11:00 WBC (4.5-11.0) 10^3/ul RBC (3.5-6.1) 10^6/uL Hgb (14.0-18.0) gm/dL Hct (42.0-52.0) % MCV (80.0-105.0) fL MCH (25.0-35.0) pg MCHC (31.0-37.0) g/dl RDW (11.5-14.5) % Plt Count (120.0-450.0) 10^3/uL MPV (7.0-11.0) fl Gran % (50.0-68.0) % Lymph % (Auto) (22.0-35.0) % [place] % (Auto) (1.0-6.0) % Eos % (Auto) (1.5-5.0) % Baso % (Auto) (0.0-3.0) % Gran # (1.4-6.5) Lymph # (1.2-3.4) [place] # (0.1-0.6) Eos # (0.0-0.7) Baso # (0.0-2.0) K/mm3 pCO2 (35-45) mm/Hg pO2 (80-100) mm/Hg HCO3 (21-28) mmol/L ABG pH (7.35-7.45) ABG Total CO2 (22-28) mmol.L ABG O2 Saturation (95-98) % ABG O2 Content (15-23) ML/dl ABG Base Excess (-2.0-3.0) mmol/L ABG Hemoglobin (11.7-17.4) g/dL ABG Carboxyhemoglobin (0.5-1.5) % POC ABG HHb (Measured) (0-5) % ABG Methemoglobin (0.0-3.0) % ABG O2 Capacity (16-24) mL/dl Hgb O2 Saturation (95.0-98.0) % FiO2 % Sodium (132-148) mmol/L Potassium (3.6-5.0) mmol/L Chloride (98-107) mmol/L Carbon Dioxide (21-33) mmol/L Anion Gap (10-20) BUN (7-21) mg/dL Creatinine (0.5-1.4) mg/dL Est GFR ( Amer) Est GFR (Non-Af Amer) POC Glucose (mg/dL) 114 H 114 H 144 H (65-110) mg/dL Random Glucose (70-110) mg/dL Calcium (8.4-10.5) mg/dL Phosphorus (2.5-4.5) mg/dL Magnesium (1.7-2.2) mg/dL Total Bilirubin (0.2-1.3) mg/dL AST (15-59) U/L ALT (7-56) U/L Alkaline Phosphatase (38-133) U/L Total Protein (5.8-8.3) g/dL Albumin (3.0-4.8) g/dL Globulin gm/dL Albumin/Globulin Ratio (1.1-1.8) Procalcitonin (0.19-0.49) NG/ML Fluid Source Fluid Appearance (CLEAR) Fluid WBC (0.0-300.0) /uL Fluid RBC (0.0-0.0) /uL Fluid Tot Cell Count (0-0) Fluid Neutrophils (0-0) % Fluid Lymphocytes (0-0) % Fld Monocyte/Macrophag (0-0) % Fluid Comment Pleural pH 04/21/16 04/21/16 04/21/16 Range/Units 10:05 10:01 08:31 WBC (4.5-11.0) 10^3/ul RBC (3.5-6.1) 10^6/uL Hgb (14.0-18.0) gm/dL Hct (42.0-52.0) % MCV (80.0-105.0) fL MCH (25.0-35.0) pg MCHC (31.0-37.0) g/dl RDW (11.5-14.5) % Plt Count (120.0-450.0) 10^3/uL MPV (7.0-11.0) fl Gran % (50.0-68.0) % Lymph % (Auto) (22.0-35.0) % [place] % (Auto) (1.0-6.0) % Eos % (Auto) (1.5-5.0) % Baso % (Auto) (0.0-3.0) % Gran # (1.4-6.5) Lymph # (1.2-3.4) [place] # (0.1-0.6) Eos # (0.0-0.7) Baso # (0.0-2.0) K/mm3 pCO2 (35-45) mm/Hg pO2 (80-100) mm/Hg HCO3 (21-28) mmol/L ABG pH (7.35-7.45) ABG Total CO2 (22-28) mmol.L ABG O2 Saturation (95-98) % ABG O2 Content (15-23) ML/dl ABG Base Excess (-2.0-3.0) mmol/L ABG Hemoglobin (11.7-17.4) g/dL ABG Carboxyhemoglobin (0.5-1.5) % POC ABG HHb (Measured) (0-5) % ABG Methemoglobin (0.0-3.0) % ABG O2 Capacity (16-24) mL/dl Hgb O2 Saturation (95.0-98.0) % FiO2 % Sodium (132-148) mmol/L Potassium (3.6-5.0) mmol/L Chloride (98-107) mmol/L Carbon Dioxide (21-33) mmol/L Anion Gap (10-20) BUN (7-21) mg/dL Creatinine (0.5-1.4) mg/dL Est GFR ( Amer) Est GFR (Non-Af Amer) POC Glucose (mg/dL) 108 115 H (65-110) mg/dL Random Glucose (70-110) mg/dL Calcium (8.4-10.5) mg/dL Phosphorus (2.5-4.5) mg/dL Magnesium (1.7-2.2) mg/dL Total Bilirubin (0.2-1.3) mg/dL AST (15-59) U/L ALT (7-56) U/L Alkaline Phosphatase (38-133) U/L Total Protein (5.8-8.3) g/dL Albumin (3.0-4.8) g/dL Globulin gm/dL Albumin/Globulin Ratio (1.1-1.8) Procalcitonin 2.89 H (0.19-0.49) NG/ML Fluid Source Fluid Appearance (CLEAR) Fluid WBC (0.0-300.0) /uL Fluid RBC (0.0-0.0) /uL Fluid Tot Cell Count (0-0) Fluid Neutrophils (0-0) % Fluid Lymphocytes (0-0) % Fld Monocyte/Macrophag (0-0) % Fluid Comment Pleural pH 04/21/16 04/21/16 Range/Units 05:52 03:46 WBC (4.5-11.0) 10^3/ul RBC (3.5-6.1) 10^6/uL Hgb (14.0-18.0) gm/dL Hct (42.0-52.0) % MCV (80.0-105.0) fL MCH (25.0-35.0) pg MCHC (31.0-37.0) g/dl RDW (11.5-14.5) % Plt Count (120.0-450.0) 10^3/uL MPV (7.0-11.0) fl Gran % (50.0-68.0) % Lymph % (Auto) (22.0-35.0) % [place] % (Auto) (1.0-6.0) % Eos % (Auto) (1.5-5.0) % Baso % (Auto) (0.0-3.0) % Gran # (1.4-6.5) Lymph # (1.2-3.4) [place] # (0.1-0.6) Eos # (0.0-0.7) Baso # (0.0-2.0) K/mm3 pCO2 (35-45) mm/Hg pO2 (80-100) mm/Hg HCO3 (21-28) mmol/L ABG pH (7.35-7.45) ABG Total CO2 (22-28) mmol.L ABG O2 Saturation (95-98) % ABG O2 Content (15-23) ML/dl ABG Base Excess (-2.0-3.0) mmol/L ABG Hemoglobin (11.7-17.4) g/dL ABG Carboxyhemoglobin (0.5-1.5) % POC ABG HHb (Measured) (0-5) % ABG Methemoglobin (0.0-3.0) % ABG O2 Capacity (16-24) mL/dl Hgb O2 Saturation (95.0-98.0) % FiO2 % Sodium (132-148) mmol/L Potassium (3.6-5.0) mmol/L Chloride (98-107) mmol/L Carbon Dioxide (21-33) mmol/L Anion Gap (10-20) BUN (7-21) mg/dL Creatinine (0.5-1.4) mg/dL Est GFR ( Amer) Est GFR (Non-Af Amer) POC Glucose (mg/dL) 86 74 (65-110) mg/dL Random Glucose (70-110) mg/dL Calcium (8.4-10.5) mg/dL Phosphorus (2.5-4.5) mg/dL Magnesium (1.7-2.2) mg/dL Total Bilirubin (0.2-1.3) mg/dL AST (15-59) U/L ALT (7-56) U/L Alkaline Phosphatase (38-133) U/L Total Protein (5.8-8.3) g/dL Albumin (3.0-4.8) g/dL Globulin gm/dL Albumin/Globulin Ratio (1.1-1.8) Procalcitonin (0.19-0.49) NG/ML Fluid Source Fluid Appearance (CLEAR) Fluid WBC (0.0-300.0) /uL Fluid RBC (0.0-0.0) /uL Fluid Tot Cell Count (0-0) Fluid Neutrophils (0-0) % Fluid Lymphocytes (0-0) % Fld Monocyte/Macrophag (0-0) % Fluid Comment Pleural pH Laboratory Results - last 24 hr 04/21/16 04/21/16 04/21/16 03:46 05:52 08:31 WBC RBC Hgb Hct MCV MCH MCHC RDW Plt Count MPV Gran % Lymph % (Auto) [place] % (Auto) Eos % (Auto) Baso % (Auto) Gran # Lymph # [place] # Eos # Baso # pCO2 pO2 HCO3 ABG pH ABG Total CO2 ABG O2 Saturation ABG O2 Content ABG Base Excess ABG Hemoglobin ABG Carboxyhemoglobin POC ABG HHb (Measured) ABG Methemoglobin ABG O2 Capacity Hgb O2 Saturation FiO2 Sodium Potassium Chloride Carbon Dioxide Anion Gap BUN Creatinine Est GFR ( Amer) Est GFR (Non-Af Amer) POC Glucose (mg/dL) 74 86 115 H Random Glucose Calcium Phosphorus Magnesium Total Bilirubin AST ALT Alkaline Phosphatase Total Protein Albumin Globulin Albumin/Globulin Ratio Procalcitonin Fluid Source Fluid Appearance Fluid WBC Fluid RBC Fluid Tot Cell Count Fluid Neutrophils Fluid Lymphocytes Fld Monocyte/Macrophag Fluid Comment Pleural pH 04/21/16 04/21/16 04/21/16 10:01 10:05 11:00 WBC RBC Hgb Hct MCV MCH MCHC RDW Plt Count MPV Gran % Lymph % (Auto) [place] % (Auto) Eos % (Auto) Baso % (Auto) Gran # Lymph # [place] # Eos # Baso # pCO2 pO2 HCO3 ABG pH ABG Total CO2 ABG O2 Saturation ABG O2 Content ABG Base Excess ABG Hemoglobin ABG Carboxyhemoglobin POC ABG HHb (Measured) ABG Methemoglobin ABG O2 Capacity Hgb O2 Saturation FiO2 Sodium Potassium Chloride Carbon Dioxide Anion Gap BUN Creatinine Est GFR ( Amer) Est GFR (Non-Af Amer) POC Glucose (mg/dL) 108 144 H Random Glucose Calcium Phosphorus Magnesium Total Bilirubin AST ALT Alkaline Phosphatase Total Protein Albumin Globulin Albumin/Globulin Ratio Procalcitonin 2.89 H Fluid Source Fluid Appearance Fluid WBC Fluid RBC Fluid Tot Cell Count Fluid Neutrophils Fluid Lymphocytes Fld Monocyte/Macrophag Fluid Comment Pleural pH 04/21/16 04/21/16 04/21/16 12:23 12:57 13:58 WBC RBC Hgb Hct MCV MCH MCHC RDW Plt Count MPV Gran % Lymph % (Auto) [place] % (Auto) Eos % (Auto) Baso % (Auto) Gran # Lymph # [place] # Eos # Baso # pCO2 pO2 HCO3 ABG pH ABG Total CO2 ABG O2 Saturation ABG O2 Content ABG Base Excess ABG Hemoglobin ABG Carboxyhemoglobin POC ABG HHb (Measured) ABG Methemoglobin ABG O2 Capacity Hgb O2 Saturation FiO2 Sodium Potassium Chloride Carbon Dioxide Anion Gap BUN Creatinine Est GFR ( Amer) Est GFR (Non-Af Amer) POC Glucose (mg/dL) 114 H 114 H 96 Random Glucose Calcium Phosphorus Magnesium Total Bilirubin AST ALT Alkaline Phosphatase Total Protein Albumin Globulin Albumin/Globulin Ratio Procalcitonin Fluid Source Fluid Appearance Fluid WBC Fluid RBC Fluid Tot Cell Count Fluid Neutrophils Fluid Lymphocytes Fld Monocyte/Macrophag Fluid Comment Pleural pH 04/21/16 04/21/16 04/21/16 16:10 16:33 17:59 WBC 14.3 H D RBC 4.84 Hgb 14.5 Hct 44.8 MCV 92.6 MCH 30.0 MCHC 32.4 RDW 15.6 H Plt Count 113 L MPV 11.2 H Gran % 80.1 H Lymph % (Auto) 7.1 L [place] % (Auto) 11.8 H Eos % (Auto) 0.8 L Baso % (Auto) 0.2 Gran # 11.45 H Lymph # 1.0 L [place] # 1.7 H Eos # 0.1 Baso # 0.03 pCO2 40 pO2 65.0 L HCO3 24.2 ABG pH 7.39 ABG Total CO2 25.4 ABG O2 Saturation 92.9 L ABG O2 Content 18.0 ABG Base Excess -0.7 ABG Hemoglobin 14.0 ABG Carboxyhemoglobin 1.1 POC ABG HHb (Measured) 7.0 H ABG Methemoglobin 0.3 ABG O2 Capacity 19.4 Hgb O2 Saturation 91.6 L FiO2 100.0 Sodium 136 Potassium 3.3 L Chloride 99 Carbon Dioxide 30 Anion Gap 10 BUN 24 H Creatinine 4.3 H Est GFR ( Amer) 18 Est GFR (Non-Af Amer) 15 POC Glucose (mg/dL) 88 Random Glucose 124 H Calcium 7.6 L Phosphorus Magnesium Total Bilirubin 1.8 H AST 53 ALT 38 Alkaline Phosphatase 236 H Total Protein 4.7 L Albumin 2.0 L Globulin 2.7 Albumin/Globulin Ratio 0.7 L Procalcitonin Fluid Source Fluid Appearance Fluid WBC Fluid RBC Fluid Tot Cell Count Fluid Neutrophils Fluid Lymphocytes Fld Monocyte/Macrophag Fluid Comment Pleural pH 04/21/16 04/21/16 04/21/16 18:01 19:54 21:39 WBC RBC Hgb Hct MCV MCH MCHC RDW Plt Count MPV Gran % Lymph % (Auto) [place] % (Auto) Eos % (Auto) Baso % (Auto) Gran # Lymph # [place] # Eos # Baso # pCO2 pO2 HCO3 ABG pH ABG Total CO2 ABG O2 Saturation ABG O2 Content ABG Base Excess ABG Hemoglobin ABG Carboxyhemoglobin POC ABG HHb (Measured) ABG Methemoglobin ABG O2 Capacity Hgb O2 Saturation FiO2 Sodium Potassium Chloride Carbon Dioxide Anion Gap BUN Creatinine Est GFR ( Amer) Est GFR (Non-Af Amer) POC Glucose (mg/dL) 115 H 120 H 119 H Random Glucose Calcium Phosphorus Magnesium Total Bilirubin AST ALT Alkaline Phosphatase Total Protein Albumin Globulin Albumin/Globulin Ratio Procalcitonin Fluid Source Fluid Appearance Fluid WBC Fluid RBC Fluid Tot Cell Count Fluid Neutrophils Fluid Lymphocytes Fld Monocyte/Macrophag Fluid Comment Pleural pH 04/21/16 04/22/16 04/22/16 23:46 05:30 06:30 WBC 11.9 H RBC 4.75 Hgb 14.0 Hct 43.7 MCV 92.0 MCH 29.5 MCHC 32.0 RDW 15.4 H Plt Count 125 MPV 12.9 H Gran % 77.7 H Lymph % (Auto) 5.4 L [place] % (Auto) 15.2 H Eos % (Auto) 1.4 L Baso % (Auto) 0.3 Gran # 9.25 H Lymph # 0.6 L [place] # 1.8 H Eos # 0.2 Baso # 0.04 pCO2 44 pO2 82.0 HCO3 22.7 ABG pH 7.32 L ABG Total CO2 24.1 ABG O2 Saturation 96.2 ABG O2 Content 19.3 ABG Base Excess -3.5 L ABG Hemoglobin 14.5 ABG Carboxyhemoglobin 1.0 POC ABG HHb (Measured) 3.7 ABG Methemoglobin 0.6 ABG O2 Capacity 20.1 Hgb O2 Saturation 94.7 L FiO2 100.0 Sodium 133 Potassium 3.7 Chloride 97 L Carbon Dioxide 29 Anion Gap 11 BUN 26 H Creatinine 4.5 H Est GFR ( Amer) 17 Est GFR (Non-Af Amer) 14 POC Glucose (mg/dL) 139 H Random Glucose 130 H Calcium 7.0 L Phosphorus 5.0 H Magnesium 1.8 Total Bilirubin 1.5 H AST 40 ALT 33 Alkaline Phosphatase 222 H Total Protein 4.7 L Albumin 1.9 L Globulin 2.8 Albumin/Globulin Ratio 0.7 L Procalcitonin Fluid Source Fluid Appearance Fluid WBC Fluid RBC Fluid Tot Cell Count Fluid Neutrophils Fluid Lymphocytes Fld Monocyte/Macrophag Fluid Comment Pleural pH 04/22/16 04/22/16 08:20 09:00 WBC RBC Hgb Hct MCV MCH MCHC RDW Plt Count MPV Gran % Lymph % (Auto) [place] % (Auto) Eos % (Auto) Baso % (Auto) Gran # Lymph # [place] # Eos # Baso # pCO2 41 pO2 66.0 L HCO3 23.7 ABG pH 7.37 ABG Total CO2 25.0 ABG O2 Saturation 93.7 L ABG O2 Content 17.6 ABG Base Excess -1.5 ABG Hemoglobin 13.5 ABG Carboxyhemoglobin 0.9 POC ABG HHb (Measured) 6.2 H ABG Methemoglobin 0.1 ABG O2 Capacity 18.8 Hgb O2 Saturation 92.8 L FiO2 100.0 Sodium Potassium Chloride Carbon Dioxide Anion Gap BUN Creatinine Est GFR ( Amer) Est GFR (Non-Af Amer) POC Glucose (mg/dL) Random Glucose Calcium Phosphorus Magnesium Total Bilirubin AST ALT Alkaline Phosphatase Total Protein Albumin Globulin Albumin/Globulin Ratio Procalcitonin Fluid Source Pleural Fluid Appearance Cloudy Fluid WBC 587.0 H Fluid RBC 9000.0 H Fluid Tot Cell Count 100 H Fluid Neutrophils 76.3 H Fluid Lymphocytes 23.7 H Fld Monocyte/Macrophag 0 Fluid Comment TEST NOT PERFORMED Pleural pH 8.0 Fingerstick Blood Sugar Results: 139 Critical Care Progress Note - Nutrition Nutrition: Nutrition Category Date Time Status Renal Diet [DIET] Diets 04/20/16 Dinner Ordered Assessment/Plan - Assessment and Plan (Free Text) Assessment: 50 yo male with PMH of ESRD on HD (T,TH,S) cirrhosis, hep C, alcohol abuse, and h/o cocaine and heroin use presented with septic shock 2/2 aspiration PNA with multiorgan failure. He has hypoxemic respiratory failure and AMS, currently he is intubated on levophed, dopamine and vasopresson. Surgery placed a chest tube on right side which produced 450cc. Right femoral central line placed and left femoral arterial line placed. Plan: Neuro - intially presented with AMS - pt is intubated but not on sedation, he is awake and alert, and able to follow simple commend - drug screen pending - propofol was held due to hypotension - ativan and morphine - will treat empirically for hepatic encephalopathy - cont to monitor cardio - spetic shock with hypotension - levophed and vasopresson - phenylephrine and dopamine were stopped - albumin was started - arterial line was placed - midodrine BID - echo should EF for 50% with severe pulmonary HTN and bioprosthesis valve - cont to monitor - maintain MAP>65 - cardiology following pulm - hypoxemic respiratory failure 2/2 aspiration PNE - CTA showed no PE, bilateral pleural effusions R>L - repeat cxr showed no pleural effusion or pneumothorax and small left sided effusion - ABG showed low O2 - Chest tube is on suction without air leaks and produced a total of 450cc of serosanganous fluid - surgery following - intubated on PRVC overnight, this morning placed on CPAP - cont to monitor - aspiration precaution, HOB >35 GI - h/o hep c and ascites - abd US showed moderate ascites with mild hepatosplenomegaly and moderate bilateral pleural effusions - on lactulose and rifaxmine for empiric treatment for hepatic encephalopathy - titrate lactulose to 2-3 BM per day - paracentesis today at bedside by IR - GI following - NPO, pt is intubated with OG tube - protonix ppx Renal - ESRD on HD T,T,S - HD yesterday - nephro following, Dr. Gonzalez - monitor electrolytes, replace as needed endo - fingerstick q6h, cont to monitor glucose - maintain euglycemia ID - septic shock 2/2 aspiration PNA - afebrile with leukocytosis - cont meropenem and vanco - blood cx neg after 48 hours - repeat procalcitonin elevated - maintain normathermia - ID following, Dr. Millard d/w attending <Gabriel Johns - Last Filed: 04/22/16 15:41> CCU Objective - Vital Signs / Intake & Output Vital Signs (Last 4 hours): Vital Signs Temp Pulse Resp BP Pulse Ox 04/22/16 12:00 97.4 F L 97 H 16 94/63 L 92 L Intake and Output (Last 8hrs): Intake & Output 04/22/16 04/22/16 04/22/16 06:59 14:59 22:59 Intake Total 0 Balance 0 Intake: IV 0 - Medications Active Medications: Active Medications Generic Name Dose Route Start Last Admin Trade Name Freq PRN Reason Stop Dose Admin Albuterol/Ipratropium 3 ml 04/20/16 13:13 Duoneb 3 Mg/0.5 Mg (3 Ml) Ud IH [id number] PRN Shortness of Breath Calcium Acetate 667 mg 04/21/16 08:00 04/22/16 12:07 Phoslo PO Not Given WM SIMON Heparin Sodium (Porcine) 5,000 units 04/21/16 10:00 04/22/16 12:53 Heparin SC Not Given Q12 SIMON Protocol Hydrocortisone Sodium Succinate 50 mg 04/22/16 08:30 04/22/16 10:33 Solu-Cortef IVP 50 mg Q6H SIMON Administration Propofol 100 mls @ 2.36 mls/hr 04/20/16 19:13 04/21/16 08:25 Diprivan IV 0 mcg/kg/min .Q24H PRN Titration TITRATE PER MD ORDER Protocol 5 MCG/KG/MIN Norepinephrine Bitartrate 4 mg 254 mls @ 15.24 mls/hr 04/21/16 03:07 04/22/16 13:53 / Dextrose IV 76.2 mls/hr .[id number] PRN Administration TITRATE PER MD ORDER Protocol 4 MCG/MIN Meropenem 500 mg/ Sodium 100 mls @ 100 mls/hr 04/21/16 10:00 04/22/16 10:34 Chloride IVPB 04/28/16 10:01 100 mls/hr Q12 SIMON Administration Protocol Phenylephrine HCl 40 mg/ 254 mls @ 38.1 mls/hr 04/21/16 08:30 04/22/16 08:50 Sodium Chloride IV 0 mcg/min .[id number] PRN Titration TITRATE PER MD ORDER Protocol 100 MCG/MIN Vasopressin 20 units/ Sodium 101 mls @ 9.09 mls/hr 04/21/16 08:30 04/22/16 05: 15 Chloride IV 9.09 mls/hr .[id number] SIMON Administration Protocol 0.03 U/MIN Dopamine HCl/Dextrose 250 mls @ 5.899 mls/hr 04/22/16 08:15 04/22/16 13:12 Dopamine 400mg/250ml D5w IV 0 mcg/kg/min .Q24H PRN Titration TITRATE PER MD ORDER Protocol 2 MCG/KG/MIN Lactulose 20 gm 04/19/16 18:00 04/22/16 10:32 Enulose PO 20 gm BID SMION Administration Lorazepam 2 mg 04/21/16 08:41 04/21/16 14:03 Ativan IVP 2 mg Q2H PRN Administration Agitation Protocol Midodrine 10 mg 04/20/16 22:00 04/22/16 10:34 Proamatine PO 10 mg Q12H SIMON Administration Morphine Sulfate 2 mg 04/21/16 08:41 04/21/16 10:59 Morphine IVP 2 mg Q4H PRN Administration Pain, moderate (4-7) Pantoprazole Sodium 40 mg 04/20/16 10:00 04/22/16 10:33 Protonix Inj IVP 40 mg DAILY SIMON Administration - Patient Studies Lab Studies: Microbiology Studies 04/21/16 20:27 Gram Stain - Preliminary Sputum Lab Studies 04/22/16 04/22/16 04/22/16 Range/Units 13:53 11:33 09:00 WBC (4.5-11.0) 10^3/ul RBC (3.5-6.1) 10^6/uL Hgb (14.0-18.0) gm/dL Hct (42.0-52.0) % MCV (80.0-105.0) fL MCH (25.0-35.0) pg MCHC (31.0-37.0) g/dl RDW (11.5-14.5) % Plt Count (120.0-450.0) 10^3/uL MPV (7.0-11.0) fl Gran % (50.0-68.0) % Lymph % (Auto) (22.0-35.0) % [place] % (Auto) (1.0-6.0) % Eos % (Auto) (1.5-5.0) % Baso % (Auto) (0.0-3.0) % Gran # (1.4-6.5) Lymph # (1.2-3.4) [place] # (0.1-0.6) Eos # (0.0-0.7) Baso # (0.0-2.0) K/mm3 pCO2 39 (35-45) mm/Hg pO2 58.0 L (80-100) mm/Hg HCO3 22.5 (21-28) mmol/L ABG pH 7.37 (7.35-7.45) ABG Total CO2 23.7 (22-28) mmol.L ABG O2 Saturation 91.1 L (95-98) % ABG O2 Content (15-23) ML/dl ABG Base Excess -2.5 L (-2.0-3.0) mmol/L ABG Hemoglobin (11.7-17.4) g/dL ABG Carboxyhemoglobin (0.5-1.5) % POC ABG HHb (Measured) (0-5) % ABG Methemoglobin (0.0-3.0) % ABG O2 Capacity (16-24) mL/dl ABG Potassium 3.3 L (3.6-5.2) mmol/L Hgb O2 Saturation (95.0-98.0) % Sodium 132.0 (132-148) mmol/L Chloride 104.0 (98-107) mmol/L Glucose 134 H (75-110) mg/dl Lactate 1.2 (0.7-2.1) mmol/L FiO2 50.0 % PEEP 5 Pressure Support 7 Potassium (3.6-5.0) mmol/L Carbon Dioxide (21-33) mmol/L Anion Gap (10-20) BUN (7-21) mg/dL Creatinine (0.5-1.4) mg/dL Est GFR ( Amer) Est GFR (Non-Af Amer) POC Glucose (mg/dL) 170 H (65-110) mg/dL Random Glucose (70-110) mg/dL Calcium (8.4-10.5) mg/dL Phosphorus (2.5-4.5) mg/dL Magnesium (1.7-2.2) mg/dL Total Bilirubin (0.2-1.3) mg/dL AST (15-59) U/L ALT (7-56) U/L Alkaline Phosphatase (38-133) U/L Total Protein (5.8-8.3) g/dL Albumin (3.0-4.8) g/dL Globulin gm/dL Albumin/Globulin Ratio (1.1-1.8) Procalcitonin (0.19-0.49) NG/ML Arterial Blood Potassium 3.3 L (3.6-5.2) mmol/L Fluid Source Pleural Fluid Appearance Cloudy (CLEAR) Fluid WBC 587.0 H (0.0-300.0) /uL Fluid RBC 9000.0 H (0.0-0.0) /uL Fluid Tot Cell Count 100 H (0-0) Fluid Neutrophils 76.3 H (0-0) % Fluid Lymphocytes 23.7 H (0-0) % Fld Monocyte/Macrophag 0 (0-0) % Fluid Comment TEST NOT PERFORMED Pleural pH 8.0 04/22/16 04/22/16 04/22/16 Range/Units 08:20 06:30 05:30 WBC 11.9 H (4.5-11.0) 10^3/ul RBC 4.75 (3.5-6.1) 10^6/uL Hgb 14.0 (14.0-18.0) gm/dL Hct 43.7 (42.0-52.0) % MCV 92.0 (80.0-105.0) fL MCH 29.5 (25.0-35.0) pg MCHC 32.0 (31.0-37.0) g/dl RDW 15.4 H (11.5-14.5) % Plt Count 125 (120.0-450.0) 10^3/uL MPV 12.9 H (7.0-11.0) fl Gran % 77.7 H (50.0-68.0) % Lymph % (Auto) 5.4 L (22.0-35.0) % [place] % (Auto) 15.2 H (1.0-6.0) % Eos % (Auto) 1.4 L (1.5-5.0) % Baso % (Auto) 0.3 (0.0-3.0) % Gran # 9.25 H (1.4-6.5) Lymph # 0.6 L (1.2-3.4) [place] # 1.8 H (0.1-0.6) Eos # 0.2 (0.0-0.7) Baso # 0.04 (0.0-2.0) K/mm3 pCO2 41 44 (35-45) mm/Hg pO2 66.0 L 82.0 (80-100) mm/Hg HCO3 23.7 22.7 (21-28) mmol/L ABG pH 7.37 7.32 L (7.35-7.45) ABG Total CO2 25.0 24.1 (22-28) mmol.L ABG O2 Saturation 93.7 L 96.2 (95-98) % ABG O2 Content 17.6 19.3 (15-23) ML/dl ABG Base Excess -1.5 -3.5 L (-2.0-3.0) mmol/L ABG Hemoglobin 13.5 14.5 (11.7-17.4) g/dL ABG Carboxyhemoglobin 0.9 1.0 (0.5-1.5) % POC ABG HHb (Measured) 6.2 H 3.7 (0-5) % ABG Methemoglobin 0.1 0.6 (0.0-3.0) % ABG O2 Capacity 18.8 20.1 (16-24) mL/dl ABG Potassium (3.6-5.2) mmol/L Hgb O2 Saturation 92.8 L 94.7 L (95.0-98.0) % Sodium 133 (132-148) mmol/L Chloride 97 L (98-107) mmol/L Glucose (75-110) mg/dl Lactate (0.7-2.1) mmol/L FiO2 100.0 100.0 % PEEP Pressure Support Potassium 3.7 (3.6-5.0) mmol/L Carbon Dioxide 29 (21-33) mmol/L Anion Gap 11 (10-20) BUN 26 H (7-21) mg/dL Creatinine 4.5 H (0.5-1.4) mg/dL Est GFR ( Amer) 17 Est GFR (Non-Af Amer) 14 POC Glucose (mg/dL) (65-110) mg/dL Random Glucose 130 H (70-110) mg/dL Calcium 7.0 L (8.4-10.5) mg/dL Phosphorus 5.0 H (2.5-4.5) mg/dL Magnesium 1.8 (1.7-2.2) mg/dL Total Bilirubin 1.5 H (0.2-1.3) mg/dL AST 40 (15-59) U/L ALT 33 (7-56) U/L Alkaline Phosphatase 222 H (38-133) U/L Total Protein 4.7 L (5.8-8.3) g/dL Albumin 1.9 L (3.0-4.8) g/dL Globulin 2.8 gm/dL Albumin/Globulin Ratio 0.7 L (1.1-1.8) Procalcitonin (0.19-0.49) NG/ML Arterial Blood Potassium (3.6-5.2) mmol/L Fluid Source Fluid Appearance (CLEAR) Fluid WBC (0.0-300.0) /uL Fluid RBC (0.0-0.0) /uL Fluid Tot Cell Count (0-0) Fluid Neutrophils (0-0) % Fluid Lymphocytes (0-0) % Fld Monocyte/Macrophag (0-0) % Fluid Comment Pleural pH 04/21/16 04/21/16 04/21/16 Range/Units 23:46 21:39 19:54 WBC (4.5-11.0) 10^3/ul RBC (3.5-6.1) 10^6/uL Hgb (14.0-18.0) gm/dL Hct (42.0-52.0) % MCV (80.0-105.0) fL MCH (25.0-35.0) pg MCHC (31.0-37.0) g/dl RDW (11.5-14.5) % Plt Count (120.0-450.0) 10^3/uL MPV (7.0-11.0) fl Gran % (50.0-68.0) % Lymph % (Auto) (22.0-35.0) % [place] % (Auto) (1.0-6.0) % Eos % (Auto) (1.5-5.0) % Baso % (Auto) (0.0-3.0) % Gran # (1.4-6.5) Lymph # (1.2-3.4) [place] # (0.1-0.6) Eos # (0.0-0.7) Baso # (0.0-2.0) K/mm3 pCO2 (35-45) mm/Hg pO2 (80-100) mm/Hg HCO3 (21-28) mmol/L ABG pH (7.35-7.45) ABG Total CO2 (22-28) mmol.L ABG O2 Saturation (95-98) % ABG O2 Content (15-23) ML/dl ABG Base Excess (-2.0-3.0) mmol/L ABG Hemoglobin (11.7-17.4) g/dL ABG Carboxyhemoglobin (0.5-1.5) % POC ABG HHb (Measured) (0-5) % ABG Methemoglobin (0.0-3.0) % ABG O2 Capacity (16-24) mL/dl ABG Potassium (3.6-5.2) mmol/L Hgb O2 Saturation (95.0-98.0) % Sodium (132-148) mmol/L Chloride (98-107) mmol/L Glucose (75-110) mg/dl Lactate (0.7-2.1) mmol/L FiO2 % PEEP Pressure Support Potassium (3.6-5.0) mmol/L Carbon Dioxide (21-33) mmol/L Anion Gap (10-20) BUN (7-21) mg/dL Creatinine (0.5-1.4) mg/dL Est GFR ( Amer) Est GFR (Non-Af Amer) POC Glucose (mg/dL) 139 H 119 H 120 H (65-110) mg/dL Random Glucose (70-110) mg/dL Calcium (8.4-10.5) mg/dL Phosphorus (2.5-4.5) mg/dL Magnesium (1.7-2.2) mg/dL Total Bilirubin (0.2-1.3) mg/dL AST (15-59) U/L ALT (7-56) U/L Alkaline Phosphatase (38-133) U/L Total Protein (5.8-8.3) g/dL Albumin (3.0-4.8) g/dL Globulin gm/dL Albumin/Globulin Ratio (1.1-1.8) Procalcitonin (0.19-0.49) NG/ML Arterial Blood Potassium (3.6-5.2) mmol/L Fluid Source Fluid Appearance (CLEAR) Fluid WBC (0.0-300.0) /uL Fluid RBC (0.0-0.0) /uL Fluid Tot Cell Count (0-0) Fluid Neutrophils (0-0) % Fluid Lymphocytes (0-0) % Fld Monocyte/Macrophag (0-0) % Fluid Comment Pleural pH 04/21/16 04/21/16 04/21/16 Range/Units 18:01 17:59 16:33 WBC 14.3 H D (4.5-11.0) 10^3/ul RBC 4.84 (3.5-6.1) 10^6/uL Hgb 14.5 (14.0-18.0) gm/dL Hct 44.8 (42.0-52.0) % MCV 92.6 (80.0-105.0) fL MCH 30.0 (25.0-35.0) pg MCHC 32.4 (31.0-37.0) g/dl RDW 15.6 H (11.5-14.5) % Plt Count 113 L (120.0-450.0) 10^3/uL MPV 11.2 H (7.0-11.0) fl Gran % 80.1 H (50.0-68.0) % Lymph % (Auto) 7.1 L (22.0-35.0) % [place] % (Auto) 11.8 H (1.0-6.0) % Eos % (Auto) 0.8 L (1.5-5.0) % Baso % (Auto) 0.2 (0.0-3.0) % Gran # 11.45 H (1.4-6.5) Lymph # 1.0 L (1.2-3.4) [place] # 1.7 H (0.1-0.6) Eos # 0.1 (0.0-0.7) Baso # 0.03 (0.0-2.0) K/mm3 pCO2 40 (35-45) mm/Hg pO2 65.0 L (80-100) mm/Hg HCO3 24.2 (21-28) mmol/L ABG pH 7.39 (7.35-7.45) ABG Total CO2 25.4 (22-28) mmol.L ABG O2 Saturation 92.9 L (95-98) % ABG O2 Content 18.0 (15-23) ML/dl ABG Base Excess -0.7 (-2.0-3.0) mmol/L ABG Hemoglobin 14.0 (11.7-17.4) g/dL ABG Carboxyhemoglobin 1.1 (0.5-1.5) % POC ABG HHb (Measured) 7.0 H (0-5) % ABG Methemoglobin 0.3 (0.0-3.0) % ABG O2 Capacity 19.4 (16-24) mL/dl ABG Potassium (3.6-5.2) mmol/L Hgb O2 Saturation 91.6 L (95.0-98.0) % Sodium 136 (132-148) mmol/L Chloride 99 (98-107) mmol/L Glucose (75-110) mg/dl Lactate (0.7-2.1) mmol/L FiO2 100.0 % PEEP Pressure Support Potassium 3.3 L (3.6-5.0) mmol/L Carbon Dioxide 30 (21-33) mmol/L Anion Gap 10 (10-20) BUN 24 H (7-21) mg/dL Creatinine 4.3 H (0.5-1.4) mg/dL Est GFR ( Amer) 18 Est GFR (Non-Af Amer) 15 POC Glucose (mg/dL) 115 H (65-110) mg/dL Random Glucose 124 H (70-110) mg/dL Calcium 7.6 L (8.4-10.5) mg/dL Phosphorus (2.5-4.5) mg/dL Magnesium (1.7-2.2) mg/dL Total Bilirubin 1.8 H (0.2-1.3) mg/dL AST 53 (15-59) U/L ALT 38 (7-56) U/L Alkaline Phosphatase 236 H (38-133) U/L Total Protein 4.7 L (5.8-8.3) g/dL Albumin 2.0 L (3.0-4.8) g/dL Globulin 2.7 gm/dL Albumin/Globulin Ratio 0.7 L (1.1-1.8) Procalcitonin (0.19-0.49) NG/ML Arterial Blood Potassium (3.6-5.2) mmol/L Fluid Source Fluid Appearance (CLEAR) Fluid WBC (0.0-300.0) /uL Fluid RBC (0.0-0.0) /uL Fluid Tot Cell Count (0-0) Fluid Neutrophils (0-0) % Fluid Lymphocytes (0-0) % Fld Monocyte/Macrophag (0-0) % Fluid Comment Pleural pH 04/21/16 04/21/16 04/21/16 Range/Units 16:10 13:58 12:57 WBC (4.5-11.0) 10^3/ul RBC (3.5-6.1) 10^6/uL Hgb (14.0-18.0) gm/dL Hct (42.0-52.0) % MCV (80.0-105.0) fL MCH (25.0-35.0) pg MCHC (31.0-37.0) g/dl RDW (11.5-14.5) % Plt Count (120.0-450.0) 10^3/uL MPV (7.0-11.0) fl Gran % (50.0-68.0) % Lymph % (Auto) (22.0-35.0) % [place] % (Auto) (1.0-6.0) % Eos % (Auto) (1.5-5.0) % Baso % (Auto) (0.0-3.0) % Gran # (1.4-6.5) Lymph # (1.2-3.4) [place] # (0.1-0.6) Eos # (0.0-0.7) Baso # (0.0-2.0) K/mm3 pCO2 (35-45) mm/Hg pO2 (80-100) mm/Hg HCO3 (21-28) mmol/L ABG pH (7.35-7.45) ABG Total CO2 (22-28) mmol.L ABG O2 Saturation (95-98) % ABG O2 Content (15-23) ML/dl ABG Base Excess (-2.0-3.0) mmol/L ABG Hemoglobin (11.7-17.4) g/dL ABG Carboxyhemoglobin (0.5-1.5) % POC ABG HHb (Measured) (0-5) % ABG Methemoglobin (0.0-3.0) % ABG O2 Capacity (16-24) mL/dl ABG Potassium (3.6-5.2) mmol/L Hgb O2 Saturation (95.0-98.0) % Sodium (132-148) mmol/L Chloride (98-107) mmol/L Glucose (75-110) mg/dl Lactate (0.7-2.1) mmol/L FiO2 % PEEP Pressure Support Potassium (3.6-5.0) mmol/L Carbon Dioxide (21-33) mmol/L Anion Gap (10-20) BUN (7-21) mg/dL Creatinine (0.5-1.4) mg/dL Est GFR ( Amer) Est GFR (Non-Af Amer) POC Glucose (mg/dL) 88 96 114 H (65-110) mg/dL Random Glucose (70-110) mg/dL Calcium (8.4-10.5) mg/dL Phosphorus (2.5-4.5) mg/dL Magnesium (1.7-2.2) mg/dL Total Bilirubin (0.2-1.3) mg/dL AST (15-59) U/L ALT (7-56) U/L Alkaline Phosphatase (38-133) U/L Total Protein (5.8-8.3) g/dL Albumin (3.0-4.8) g/dL Globulin gm/dL Albumin/Globulin Ratio (1.1-1.8) Procalcitonin (0.19-0.49) NG/ML Arterial Blood Potassium (3.6-5.2) mmol/L Fluid Source Fluid Appearance (CLEAR) Fluid WBC (0.0-300.0) /uL Fluid RBC (0.0-0.0) /uL Fluid Tot Cell Count (0-0) Fluid Neutrophils (0-0) % Fluid Lymphocytes (0-0) % Fld Monocyte/Macrophag (0-0) % Fluid Comment Pleural pH 04/21/16 04/21/16 04/21/16 Range/Units 12:23 11:00 10:05 WBC (4.5-11.0) 10^3/ul RBC (3.5-6.1) 10^6/uL Hgb (14.0-18.0) gm/dL Hct (42.0-52.0) % MCV (80.0-105.0) fL MCH (25.0-35.0) pg MCHC (31.0-37.0) g/dl RDW (11.5-14.5) % Plt Count (120.0-450.0) 10^3/uL MPV (7.0-11.0) fl Gran % (50.0-68.0) % Lymph % (Auto) (22.0-35.0) % [place] % (Auto) (1.0-6.0) % Eos % (Auto) (1.5-5.0) % Baso % (Auto) (0.0-3.0) % Gran # (1.4-6.5) Lymph # (1.2-3.4) [place] # (0.1-0.6) Eos # (0.0-0.7) Baso # (0.0-2.0) K/mm3 pCO2 (35-45) mm/Hg pO2 (80-100) mm/Hg HCO3 (21-28) mmol/L ABG pH (7.35-7.45) ABG Total CO2 (22-28) mmol.L ABG O2 Saturation (95-98) % ABG O2 Content (15-23) ML/dl ABG Base Excess (-2.0-3.0) mmol/L ABG Hemoglobin (11.7-17.4) g/dL ABG Carboxyhemoglobin (0.5-1.5) % POC ABG HHb (Measured) (0-5) % ABG Methemoglobin (0.0-3.0) % ABG O2 Capacity (16-24) mL/dl ABG Potassium (3.6-5.2) mmol/L Hgb O2 Saturation (95.0-98.0) % Sodium (132-148) mmol/L Chloride (98-107) mmol/L Glucose (75-110) mg/dl Lactate (0.7-2.1) mmol/L FiO2 % PEEP Pressure Support Potassium (3.6-5.0) mmol/L Carbon Dioxide (21-33) mmol/L Anion Gap (10-20) BUN (7-21) mg/dL Creatinine (0.5-1.4) mg/dL Est GFR ( Amer) Est GFR (Non-Af Amer) POC Glucose (mg/dL) 114 H 144 H (65-110) mg/dL Random Glucose (70-110) mg/dL Calcium (8.4-10.5) mg/dL Phosphorus (2.5-4.5) mg/dL Magnesium (1.7-2.2) mg/dL Total Bilirubin (0.2-1.3) mg/dL AST (15-59) U/L ALT (7-56) U/L Alkaline Phosphatase (38-133) U/L Total Protein (5.8-8.3) g/dL Albumin (3.0-4.8) g/dL Globulin gm/dL Albumin/Globulin Ratio (1.1-1.8) Procalcitonin 2.89 H (0.19-0.49) NG/ML Arterial Blood Potassium (3.6-5.2) mmol/L Fluid Source Fluid Appearance (CLEAR) Fluid WBC (0.0-300.0) /uL Fluid RBC (0.0-0.0) /uL Fluid Tot Cell Count (0-0) Fluid Neutrophils (0-0) % Fluid Lymphocytes (0-0) % Fld Monocyte/Macrophag (0-0) % Fluid Comment Pleural pH 04/21/16 04/21/16 04/21/16 Range/Units 10:01 08:31 05:52 WBC (4.5-11.0) 10^3/ul RBC (3.5-6.1) 10^6/uL Hgb (14.0-18.0) gm/dL Hct (42.0-52.0) % MCV (80.0-105.0) fL MCH (25.0-35.0) pg MCHC (31.0-37.0) g/dl RDW (11.5-14.5) % Plt Count (120.0-450.0) 10^3/uL MPV (7.0-11.0) fl Gran % (50.0-68.0) % Lymph % (Auto) (22.0-35.0) % [place] % (Auto) (1.0-6.0) % Eos % (Auto) (1.5-5.0) % Baso % (Auto) (0.0-3.0) % Gran # (1.4-6.5) Lymph # (1.2-3.4) [place] # (0.1-0.6) Eos # (0.0-0.7) Baso # (0.0-2.0) K/mm3 pCO2 (35-45) mm/Hg pO2 (80-100) mm/Hg HCO3 (21-28) mmol/L ABG pH (7.35-7.45) ABG Total CO2 (22-28) mmol.L ABG O2 Saturation (95-98) % ABG O2 Content (15-23) ML/dl ABG Base Excess (-2.0-3.0) mmol/L ABG Hemoglobin (11.7-17.4) g/dL ABG Carboxyhemoglobin (0.5-1.5) % POC ABG HHb (Measured) (0-5) % ABG Methemoglobin (0.0-3.0) % ABG O2 Capacity (16-24) mL/dl ABG Potassium (3.6-5.2) mmol/L Hgb O2 Saturation (95.0-98.0) % Sodium (132-148) mmol/L Chloride (98-107) mmol/L Glucose (75-110) mg/dl Lactate (0.7-2.1) mmol/L FiO2 % PEEP Pressure Support Potassium (3.6-5.0) mmol/L Carbon Dioxide (21-33) mmol/L Anion Gap (10-20) BUN (7-21) mg/dL Creatinine (0.5-1.4) mg/dL Est GFR ( Amer) Est GFR (Non-Af Amer) POC Glucose (mg/dL) 108 115 H 86 (65-110) mg/dL Random Glucose (70-110) mg/dL Calcium (8.4-10.5) mg/dL Phosphorus (2.5-4.5) mg/dL Magnesium (1.7-2.2) mg/dL Total Bilirubin (0.2-1.3) mg/dL AST (15-59) U/L ALT (7-56) U/L Alkaline Phosphatase (38-133) U/L Total Protein (5.8-8.3) g/dL Albumin (3.0-4.8) g/dL Globulin gm/dL Albumin/Globulin Ratio (1.1-1.8) Procalcitonin (0.19-0.49) NG/ML Arterial Blood Potassium (3.6-5.2) mmol/L Fluid Source Fluid Appearance (CLEAR) Fluid WBC (0.0-300.0) /uL Fluid RBC (0.0-0.0) /uL Fluid Tot Cell Count (0-0) Fluid Neutrophils (0-0) % Fluid Lymphocytes (0-0) % Fld Monocyte/Macrophag (0-0) % Fluid Comment Pleural pH 04/21/16 Range/Units 03:46 WBC (4.5-11.0) 10^3/ul RBC (3.5-6.1) 10^6/uL Hgb (14.0-18.0) gm/dL Hct (42.0-52.0) % MCV (80.0-105.0) fL MCH (25.0-35.0) pg MCHC (31.0-37.0) g/dl RDW (11.5-14.5) % Plt Count (120.0-450.0) 10^3/uL MPV (7.0-11.0) fl Gran % (50.0-68.0) % Lymph % (Auto) (22.0-35.0) % [place] % (Auto) (1.0-6.0) % Eos % (Auto) (1.5-5.0) % Baso % (Auto) (0.0-3.0) % Gran # (1.4-6.5) Lymph # (1.2-3.4) [place] # (0.1-0.6) Eos # (0.0-0.7) Baso # (0.0-2.0) K/mm3 pCO2 (35-45) mm/Hg pO2 (80-100) mm/Hg HCO3 (21-28) mmol/L ABG pH (7.35-7.45) ABG Total CO2 (22-28) mmol.L ABG O2 Saturation (95-98) % ABG O2 Content (15-23) ML/dl ABG Base Excess (-2.0-3.0) mmol/L ABG Hemoglobin (11.7-17.4) g/dL ABG Carboxyhemoglobin (0.5-1.5) % POC ABG HHb (Measured) (0-5) % ABG Methemoglobin (0.0-3.0) % ABG O2 Capacity (16-24) mL/dl ABG Potassium (3.6-5.2) mmol/L Hgb O2 Saturation (95.0-98.0) % Sodium (132-148) mmol/L Chloride (98-107) mmol/L Glucose (75-110) mg/dl Lactate (0.7-2.1) mmol/L FiO2 % PEEP Pressure Support Potassium (3.6-5.0) mmol/L Carbon Dioxide (21-33) mmol/L Anion Gap (10-20) BUN (7-21) mg/dL Creatinine (0.5-1.4) mg/dL Est GFR ( Amer) Est GFR (Non-Af Amer) POC Glucose (mg/dL) 74 (65-110) mg/dL Random Glucose (70-110) mg/dL Calcium (8.4-10.5) mg/dL Phosphorus (2.5-4.5) mg/dL Magnesium (1.7-2.2) mg/dL Total Bilirubin (0.2-1.3) mg/dL AST (15-59) U/L ALT (7-56) U/L Alkaline Phosphatase (38-133) U/L Total Protein (5.8-8.3) g/dL Albumin (3.0-4.8) g/dL Globulin gm/dL Albumin/Globulin Ratio (1.1-1.8) Procalcitonin (0.19-0.49) NG/ML Arterial Blood Potassium (3.6-5.2) mmol/L Fluid Source Fluid Appearance (CLEAR) Fluid WBC (0.0-300.0) /uL Fluid RBC (0.0-0.0) /uL Fluid Tot Cell Count (0-0) Fluid Neutrophils (0-0) % Fluid Lymphocytes (0-0) % Fld Monocyte/Macrophag (0-0) % Fluid Comment Pleural pH Laboratory Results - last 24 hr 04/21/16 04/21/16 04/21/16 03:46 05:52 08:31 WBC RBC Hgb Hct MCV MCH MCHC RDW Plt Count MPV Gran % Lymph % (Auto) [place] % (Auto) Eos % (Auto) Baso % (Auto) Gran # Lymph # [place] # Eos # Baso # pCO2 pO2 HCO3 ABG pH ABG Total CO2 ABG O2 Saturation ABG O2 Content ABG Base Excess ABG Hemoglobin ABG Carboxyhemoglobin POC ABG HHb (Measured) ABG Methemoglobin ABG O2 Capacity ABG Potassium Hgb O2 Saturation Glucose Lactate FiO2 PEEP Pressure Support Sodium Potassium Chloride Carbon Dioxide Anion Gap BUN Creatinine Est GFR ( Amer) Est GFR (Non-Af Amer) POC Glucose (mg/dL) 74 86 115 H Random Glucose Calcium Phosphorus Magnesium Total Bilirubin AST ALT Alkaline Phosphatase Total Protein Albumin Globulin Albumin/Globulin Ratio Procalcitonin Arterial Blood Potassium Fluid Source Fluid Appearance Fluid WBC Fluid RBC Fluid Tot Cell Count Fluid Neutrophils Fluid Lymphocytes Fld Monocyte/Macrophag Fluid Comment Pleural pH 04/21/16 04/21/16 04/21/16 10:01 10:05 11:00 WBC RBC Hgb Hct MCV MCH MCHC RDW Plt Count MPV Gran % Lymph % (Auto) [place] % (Auto) Eos % (Auto) Baso % (Auto) Gran # Lymph # [place] # Eos # Baso # pCO2 pO2 HCO3 ABG pH ABG Total CO2 ABG O2 Saturation ABG O2 Content ABG Base Excess ABG Hemoglobin ABG Carboxyhemoglobin POC ABG HHb (Measured) ABG Methemoglobin ABG O2 Capacity ABG Potassium Hgb O2 Saturation Glucose Lactate FiO2 PEEP Pressure Support Sodium Potassium Chloride Carbon Dioxide Anion Gap BUN Creatinine Est GFR ( Amer) Est GFR (Non-Af Amer) POC Glucose (mg/dL) 108 144 H Random Glucose Calcium Phosphorus Magnesium Total Bilirubin AST ALT Alkaline Phosphatase Total Protein Albumin Globulin Albumin/Globulin Ratio Procalcitonin 2.89 H Arterial Blood Potassium Fluid Source Fluid Appearance Fluid WBC Fluid RBC Fluid Tot Cell Count Fluid Neutrophils Fluid Lymphocytes Fld Monocyte/Macrophag Fluid Comment Pleural pH 04/21/16 04/21/16 04/21/16 12:23 12:57 13:58 WBC RBC Hgb Hct MCV MCH MCHC RDW Plt Count MPV Gran % Lymph % (Auto) [place] % (Auto) Eos % (Auto) Baso % (Auto) Gran # Lymph # [place] # Eos # Baso # pCO2 pO2 HCO3 ABG pH ABG Total CO2 ABG O2 Saturation ABG O2 Content ABG Base Excess ABG Hemoglobin ABG Carboxyhemoglobin POC ABG HHb (Measured) ABG Methemoglobin ABG O2 Capacity ABG Potassium Hgb O2 Saturation Glucose Lactate FiO2 PEEP Pressure Support Sodium Potassium Chloride Carbon Dioxide Anion Gap BUN Creatinine Est GFR ( Amer) Est GFR (Non-Af Amer) POC Glucose (mg/dL) 114 H 114 H 96 Random Glucose Calcium Phosphorus Magnesium Total Bilirubin AST ALT Alkaline Phosphatase Total Protein Albumin Globulin Albumin/Globulin Ratio Procalcitonin Arterial Blood Potassium Fluid Source Fluid Appearance Fluid WBC Fluid RBC Fluid Tot Cell Count Fluid Neutrophils Fluid Lymphocytes Fld Monocyte/Macrophag Fluid Comment Pleural pH 04/21/16 04/21/16 04/21/16 16:10 16:33 17:59 WBC 14.3 H D RBC 4.84 Hgb 14.5 Hct 44.8 MCV 92.6 MCH 30.0 MCHC 32.4 RDW 15.6 H Plt Count 113 L MPV 11.2 H Gran % 80.1 H Lymph % (Auto) 7.1 L [place] % (Auto) 11.8 H Eos % (Auto) 0.8 L Baso % (Auto) 0.2 Gran # 11.45 H Lymph # 1.0 L [place] # 1.7 H Eos # 0.1 Baso # 0.03 pCO2 40 pO2 65.0 L HCO3 24.2 ABG pH 7.39 ABG Total CO2 25.4 ABG O2 Saturation 92.9 L ABG O2 Content 18.0 ABG Base Excess -0.7 ABG Hemoglobin 14.0 ABG Carboxyhemoglobin 1.1 POC ABG HHb (Measured) 7.0 H ABG Methemoglobin 0.3 ABG O2 Capacity 19.4 ABG Potassium Hgb O2 Saturation 91.6 L Glucose Lactate FiO2 100.0 PEEP Pressure Support Sodium 136 Potassium 3.3 L Chloride 99 Carbon Dioxide 30 Anion Gap 10 BUN 24 H Creatinine 4.3 H Est GFR ( Amer) 18 Est GFR (Non-Af Amer) 15 POC Glucose (mg/dL) 88 Random Glucose 124 H Calcium 7.6 L Phosphorus Magnesium Total Bilirubin 1.8 H AST 53 ALT 38 Alkaline Phosphatase 236 H Total Protein 4.7 L Albumin 2.0 L Globulin 2.7 Albumin/Globulin Ratio 0.7 L Procalcitonin Arterial Blood Potassium Fluid Source Fluid Appearance Fluid WBC Fluid RBC Fluid Tot Cell Count Fluid Neutrophils Fluid Lymphocytes Fld Monocyte/Macrophag Fluid Comment Pleural pH 04/21/16 04/21/16 04/21/16 18:01 19:54 21:39 WBC RBC Hgb Hct MCV MCH MCHC RDW Plt Count MPV Gran % Lymph % (Auto) [place] % (Auto) Eos % (Auto) Baso % (Auto) Gran # Lymph # [place] # Eos # Baso # pCO2 pO2 HCO3 ABG pH ABG Total CO2 ABG O2 Saturation ABG O2 Content ABG Base Excess ABG Hemoglobin ABG Carboxyhemoglobin POC ABG HHb (Measured) ABG Methemoglobin ABG O2 Capacity ABG Potassium Hgb O2 Saturation Glucose Lactate FiO2 PEEP Pressure Support Sodium Potassium Chloride Carbon Dioxide Anion Gap BUN Creatinine Est GFR ( Amer) Est GFR (Non-Af Amer) POC Glucose (mg/dL) 115 H 120 H 119 H Random Glucose Calcium Phosphorus Magnesium Total Bilirubin AST ALT Alkaline Phosphatase Total Protein Albumin Globulin Albumin/Globulin Ratio Procalcitonin Arterial Blood Potassium Fluid Source Fluid Appearance Fluid WBC Fluid RBC Fluid Tot Cell Count Fluid Neutrophils Fluid Lymphocytes Fld Monocyte/Macrophag Fluid Comment Pleural pH 04/21/16 04/22/16 04/22/16 23:46 05:30 06:30 WBC 11.9 H RBC 4.75 Hgb 14.0 Hct 43.7 MCV 92.0 MCH 29.5 MCHC 32.0 RDW 15.4 H Plt Count 125 MPV 12.9 H Gran % 77.7 H Lymph % (Auto) 5.4 L [place] % (Auto) 15.2 H Eos % (Auto) 1.4 L Baso % (Auto) 0.3 Gran # 9.25 H Lymph # 0.6 L [place] # 1.8 H Eos # 0.2 Baso # 0.04 pCO2 44 pO2 82.0 HCO3 22.7 ABG pH 7.32 L ABG Total CO2 24.1 ABG O2 Saturation 96.2 ABG O2 Content 19.3 ABG Base Excess -3.5 L ABG Hemoglobin 14.5 ABG Carboxyhemoglobin 1.0 POC ABG HHb (Measured) 3.7 ABG Methemoglobin 0.6 ABG O2 Capacity 20.1 ABG Potassium Hgb O2 Saturation 94.7 L Glucose Lactate FiO2 100.0 PEEP Pressure Support Sodium 133 Potassium 3.7 Chloride 97 L Carbon Dioxide 29 Anion Gap 11 BUN 26 H Creatinine 4.5 H Est GFR ( Amer) 17 Est GFR (Non-Af Amer) 14 POC Glucose (mg/dL) 139 H Random Glucose 130 H Calcium 7.0 L Phosphorus 5.0 H Magnesium 1.8 Total Bilirubin 1.5 H AST 40 ALT 33 Alkaline Phosphatase 222 H Total Protein 4.7 L Albumin 1.9 L Globulin 2.8 Albumin/Globulin Ratio 0.7 L Procalcitonin Arterial Blood Potassium Fluid Source Fluid Appearance Fluid WBC Fluid RBC Fluid Tot Cell Count Fluid Neutrophils Fluid Lymphocytes Fld Monocyte/Macrophag Fluid Comment Pleural pH 04/22/16 04/22/16 04/22/16 08:20 09:00 11:33 WBC RBC Hgb Hct MCV MCH MCHC RDW Plt Count MPV Gran % Lymph % (Auto) [place] % (Auto) Eos % (Auto) Baso % (Auto) Gran # Lymph # [place] # Eos # Baso # pCO2 41 pO2 66.0 L HCO3 23.7 ABG pH 7.37 ABG Total CO2 25.0 ABG O2 Saturation 93.7 L ABG O2 Content 17.6 ABG Base Excess -1.5 ABG Hemoglobin 13.5 ABG Carboxyhemoglobin 0.9 POC ABG HHb (Measured) 6.2 H ABG Methemoglobin 0.1 ABG O2 Capacity 18.8 ABG Potassium Hgb O2 Saturation 92.8 L Glucose Lactate FiO2 100.0 PEEP Pressure Support Sodium Potassium Chloride Carbon Dioxide Anion Gap BUN Creatinine Est GFR ( Amer) Est GFR (Non-Af Amer) POC Glucose (mg/dL) 170 H Random Glucose Calcium Phosphorus Magnesium Total Bilirubin AST ALT Alkaline Phosphatase Total Protein Albumin Globulin Albumin/Globulin Ratio Procalcitonin Arterial Blood Potassium Fluid Source Pleural Fluid Appearance Cloudy Fluid WBC 587.0 H Fluid RBC 9000.0 H Fluid Tot Cell Count 100 H Fluid Neutrophils 76.3 H Fluid Lymphocytes 23.7 H Fld Monocyte/Macrophag 0 Fluid Comment TEST NOT PERFORMED Pleural pH 8.0 04/22/16 13:53 WBC RBC Hgb Hct MCV MCH MCHC RDW Plt Count MPV Gran % Lymph % (Auto) [place] % (Auto) Eos % (Auto) Baso % (Auto) Gran # Lymph # [place] # Eos # Baso # pCO2 39 pO2 58.0 L HCO3 22.5 ABG pH 7.37 ABG Total CO2 23.7 ABG O2 Saturation 91.1 L ABG O2 Content ABG Base Excess -2.5 L ABG Hemoglobin ABG Carboxyhemoglobin POC ABG HHb (Measured) ABG Methemoglobin ABG O2 Capacity ABG Potassium 3.3 L Hgb O2 Saturation Glucose 134 H Lactate 1.2 FiO2 50.0 PEEP 5 Pressure Support 7 Sodium 132.0 Potassium Chloride 104.0 Carbon Dioxide Anion Gap BUN Creatinine Est GFR ( Amer) Est GFR (Non-Af Amer) POC Glucose (mg/dL) Random Glucose Calcium Phosphorus Magnesium Total Bilirubin AST ALT Alkaline Phosphatase Total Protein Albumin Globulin Albumin/Globulin Ratio Procalcitonin Arterial Blood Potassium 3.3 L Fluid Source Fluid Appearance Fluid WBC Fluid RBC Fluid Tot Cell Count Fluid Neutrophils Fluid Lymphocytes Fld Monocyte/Macrophag Fluid Comment Pleural pH Critical Care Progress Note - Nutrition Nutrition: Nutrition Category Date Time Status Renal Diet [DIET] Diets 04/20/16 Dinner Ordered Addendum Addendum: 04/22/16 15:40 patient was seen and examined with resident. please see Dr. Johns note
--- NOTE | 2016-04-22 11:48 | CP.PCM.PN ---
<Ezequiel Cota - Last Filed: 04/22/16 11:49> Subjective - Date & Time of Evaluation Date of Evaluation: 04/22/16 Time of Evaluation: 09:35 - Subjective Subjective: Patient was seen and examined at bedside. He remains intubated and on pressor support with levophed, phenylephrine and vasopresson. Chest tube is draining serosanguinous fluid approx 400cc overnight and femoral arterial line is in place. No acute events overnight as per nursing staff. Pt is off sedation. Objective - Vital Signs/Intake and Output Vital Signs (last 24 hours): Temp Pulse Resp BP Pulse Ox 97 F L 101 H 16 93/62 L 95 04/22/16 08:00 04/22/16 11:00 04/22/16 08:00 04/22/16 11:00 04/22/16 11:00 Intake and Output: 04/22/16 04/22/16 06:59 18:59 Intake Total 0 Balance 0 - Medications Medications: Current Medications Albuterol/Ipratropium (Duoneb 3 Mg/0.5 Mg (3 Ml) Ud) 3 ml IH [id number] PRN PRN Reason: Shortness of Breath Calcium Acetate (Phoslo) 667 mg PO WM SIMON Last Admin: 04/22/16 10:32 Dose: 667 mg Heparin Sodium (Porcine) (Heparin) 5,000 units SC Q12 SIMON PRN Reason: Protocol Last Admin: 04/21/16 22:10 Dose: 5,000 units Hydrocortisone Sodium Succinate (Solu-Cortef) 50 mg IVP Q6H SIMON Last Admin: 04/22/16 10:33 Dose: 50 mg Propofol (Diprivan) 100 mls @ 2.36 mls/hr IV .Q24H PRN; Protocol; 5 MCG/KG/MIN PRN Reason: TITRATE PER MD ORDER Last Titration: 04/21/16 08:25 Dose: 0 mcg/kg/min Norepinephrine Bitartrate 4 mg (/ Dextrose) 254 mls @ 15.24 mls/hr IV .[id number] PRN; Protocol; 4 MCG/MIN PRN Reason: TITRATE PER MD ORDER Last Titration: 04/22/16 08:30 Dose: 20 mcg/min Meropenem 500 mg/ Sodium (Chloride) 100 mls @ 100 mls/hr IVPB Q12 SIMON PRN Reason: Protocol Stop: 04/28/16 10:01 Last Admin: 04/22/16 10:34 Dose: 100 mls/hr Phenylephrine HCl 40 mg/ (Sodium Chloride) 254 mls @ 38.1 mls/hr IV .Q6H40M PRN ; Protocol; 100 MCG/MIN PRN Reason: TITRATE PER MD ORDER Last Titration: 04/22/16 08:50 Dose: 0 mcg/min Vasopressin 20 units/ Sodium (Chloride) 101 mls @ 9.09 mls/hr IV .Q11H7M SIMON; 0.03 U/MIN PRN Reason: Protocol Last Admin: 04/22/16 05:15 Dose: 9.09 mls/hr Dopamine HCl/Dextrose (Dopamine 400mg/250ml D5w) 250 mls @ 5.899 mls/hr IV .Q24H PRN; Protocol; 2 MCG/KG/MIN PRN Reason: TITRATE PER MD ORDER Last Titration: 04/22/16 10:40 Dose: 4 mcg/kg/min Lactulose (Enulose) 20 gm PO BID [facility] Last Admin: 04/22/16 10:32 Dose: 20 gm Lorazepam (Ativan) 2 mg IVP Q2H PRN; Protocol PRN Reason: Agitation Last Admin: 04/21/16 14:03 Dose: 2 mg Midodrine (Proamatine) 10 mg PO Q12H [facility] Last Admin: 04/22/16 10:34 Dose: 10 mg Morphine Sulfate (Morphine) 2 mg IVP Q4H PRN PRN Reason: Pain, moderate (4-7) Last Admin: 04/21/16 10:59 Dose: 2 mg Pantoprazole Sodium (Protonix Inj) 40 mg IVP DAILY [facility] Last Admin: 04/22/16 10:33 Dose: 40 mg Rifaximin (Xifaxan) 550 mg PO BID SIMON PRN Reason: Protocol Last Admin: 04/22/16 10:32 Dose: 550 mg - Labs Labs: 04/22/16 06:30 04/22/16 06:30 PT 12.4 Seconds (9.9-11.8) H 04/19/16 12:56 INR 1.15 (0.93-1.08) H 04/19/16 12:56 APTT 32.2 Seconds (23.7-30.8) H 04/21/16 06:00 - Constitutional Appears: No Acute Distress - Head Exam Head Exam: ATRAUMATIC, NORMAL INSPECTION, NORMOCEPHALIC - Eye Exam Eye Exam: EOMI, Normal appearance, PERRL Pupil Exam: NORMAL ACCOMODATION, PERRL - ENT Exam ENT Exam: Mucous Membranes Moist, Normal Exam - Neck Exam Neck Exam: Full ROM, Normal Inspection. absent: Lymphadenopathy - Respiratory Exam Respiratory Exam: Decreased Breath Sounds (intubated) - Cardiovascular Exam Cardiovascular Exam: REGULAR RHYTHM, +S1, +S2. absent: Murmur - GI/Abdominal Exam GI & Abdominal Exam: Soft, Normal Bowel Sounds. absent: Tenderness - Extremities Exam Extremities Exam: Full ROM, Normal Capillary Refill, Normal Inspection. absent : Joint Swelling, Pedal Edema - Neurological Exam Neurological Exam: Altered. absent: Alert, Awake - Skin Skin Exam: Dry, Intact, Normal Color, Warm Assessment and Plan - Assessment and Plan (Free Text) Assessment: 50 yo male with PMH of ESRD on HD (,,) cirrhosis, hep C, alcohol abuse, and h/o cocaine and heroin use presented with hypoxemic respiratory failure and AMS. Currently he is intubated on levophed, phenylephrine and vasopresson. Surgery placed a chest tube on right side. Right femoral central line placed. 50 M with PMHx of ESRD on HD (,,) cirrhosis, hep C, alcohol abuse, and polysubstance abuse (heroin/cocaine) admitted with AMS 2/2 drug intoxication vs encephalopathy. Pt to receiving HD today, will repeat cxr to fu congestion. As per GI, possible US guided paracentesis to reevaluate SAAG, TP, and r/o SBP. Pt intubated following hypoxic respiratory failure on bipap with fi02 of 100. CTA was negative for PE, however revealed a new large r/s loculated pleurfal effusion and b/l lower atelectasis. Surgery consulted and a chest tube was placed. HD was completed today. Pt remains on pressor support and intubated. Femoral A-line placed for closer monitoring. Will attempt to wean off pressors. Plan as per ICU team: Neuro - intially presented with AMS - pt is intubated but not on sedation, he is awake and alert, and able to follow commend - drug screen pending - propofol was held due to hypotension - ativan and morphine - will treat empirically for hepatic encephalopathy - cont to monitor cardio - hypotension - levophed and vasopresson - phenylephrine was stopped and dopamine was started - arterial line was placed - midodrine BID - echo should EF fo 50% with severe pulmonary HTN adn bioprosthesis valve - cont to monitor - maintain MAP>65 - cardiology following pulm - hypoxemic respiratory failure 2/2 aspiration PNE - CTA showed no PE, bilateral pleural effusions R>L - repeat cxr showed no pleural effusion or pneumothorax and small left sided effusion - ABG showed low O2 - Chest tube is on suction without air leaks and produced a total of 450cc of serosanganous fluid - surgery following - intubated on PRVC overnight, this morning spontaneous breathing trial - cont to monitor - aspiration precaution, HOB >35 GI - h/o hep c and ascites - abd US showed moderate ascites with mild hepatosplenomegaly and moderate bilateral pleural effusions - on lactulose and rifaxmine for empiric treatment for hepatic encephalopathy - titrate lactulose to 2-3 BM per day - paracentesis is scheduled for today at bedside - GI following, IR following - NPO, pt is intubated with OG tube - protonix ppx Renal - ESRD on HD T,T,S - HD yesterday - nephro rocío, Dr. Gonzalez - monitor electrolytes, replace as needed endo - fingerstick q6h, cont to monitor glucose ID - septic shock 2/2 aspiration PNA - afebrile with leukocytosis - cont meropenem and vanco - blood cx neg after 48 hours - repeat procalcitonin elevated - ID following, Dr. Millard <Rich RILEY,Luis - Last Filed: 04/22/16 14:44> Objective - Vital Signs/Intake and Output Vital Signs (last 24 hours): Temp Pulse Resp BP Pulse Ox 97.4 F L 97 H 16 94/63 L 92 L 04/22/16 12:00 04/22/16 12:00 04/22/16 12:00 04/22/16 12:00 04/22/16 12:00 Intake and Output: 04/22/16 04/22/16 06:59 18:59 Intake Total 0 Balance 0 - Medications Medications: Current Medications Albuterol/Ipratropium (Duoneb 3 Mg/0.5 Mg (3 Ml) Ud) 3 ml IH [id number] PRN PRN Reason: Shortness of Breath Calcium Acetate (Phoslo) 667 mg PO WM [facility] Last Admin: 04/22/16 12:07 Dose: Not Given Heparin Sodium (Porcine) (Heparin) 5,000 units SC Q12 SIMON PRN Reason: Protocol Last Admin: 04/22/16 12:53 Dose: Not Given Hydrocortisone Sodium Succinate (Solu-Cortef) 50 mg IVP Q6H SIMON Last Admin: 04/22/16 10:33 Dose: 50 mg Propofol (Diprivan) 100 mls @ 2.36 mls/hr IV .Q24H PRN; Protocol; 5 MCG/KG/MIN PRN Reason: TITRATE PER MD ORDER Last Titration: 04/21/16 08:25 Dose: 0 mcg/kg/min Norepinephrine Bitartrate 4 mg (/ Dextrose) 254 mls @ 15.24 mls/hr IV .[id number] PRN; Protocol; 4 MCG/MIN PRN Reason: TITRATE PER MD ORDER Last Admin: 04/22/16 13:53 Dose: 76.2 mls/hr Meropenem 500 mg/ Sodium (Chloride) 100 mls @ 100 mls/hr IVPB Q12 SIMON PRN Reason: Protocol Stop: 04/28/16 10:01 Last Admin: 04/22/16 10:34 Dose: 100 mls/hr Phenylephrine HCl 40 mg/ (Sodium Chloride) 254 mls @ 38.1 mls/hr IV .Q6H40M PRN ; Protocol; 100 MCG/MIN PRN Reason: TITRATE PER MD ORDER Last Titration: 04/22/16 08:50 Dose: 0 mcg/min Vasopressin 20 units/ Sodium (Chloride) 101 mls @ 9.09 mls/hr IV .Q11H7M SIMON; 0.03 U/MIN PRN Reason: Protocol Last Admin: 04/22/16 05:15 Dose: 9.09 mls/hr Dopamine HCl/Dextrose (Dopamine 400mg/250ml D5w) 250 mls @ 5.899 mls/hr IV .Q24H PRN; Protocol; 2 MCG/KG/MIN PRN Reason: TITRATE PER MD ORDER Last Titration: 04/22/16 13:12 Dose: 0 mcg/kg/min Lactulose (Enulose) 20 gm PO BID [facility] Last Admin: 04/22/16 10:32 Dose: 20 gm Lorazepam (Ativan) 2 mg IVP Q2H PRN; Protocol PRN Reason: Agitation Last Admin: 04/21/16 14:03 Dose: 2 mg Midodrine (Proamatine) 10 mg PO Q12H [facility] Last Admin: 04/22/16 10:34 Dose: 10 mg Morphine Sulfate (Morphine) 2 mg IVP Q4H PRN PRN Reason: Pain, moderate (4-7) Last Admin: 04/21/16 10:59 Dose: 2 mg Pantoprazole Sodium (Protonix Inj) 40 mg IVP DAILY [facility] Last Admin: 04/22/16 10:33 Dose: 40 mg - Labs Labs: 04/22/16 06:30 04/22/16 06:30 PT 12.4 Seconds (9.9-11.8) H 04/19/16 12:56 INR 1.15 (0.93-1.08) H 04/19/16 12:56 APTT 32.2 Seconds (23.7-30.8) H 04/21/16 06:00 Attending/Attestation - Attestation I have personally seen and examined this patient.: Yes I have fully participated in the care of the patient.: Yes I have reviewed all pertinent clinical information, including history, physical exam and plan: Yes Notes (Text): Patient was seen and examined with medical billing coder .Agreed with resident assessment and plan. 50 yo male with PMH of ESRD on HD , liver cirrhosis, hep C, alcohol abuse, and h /o cocaine and heroin use presented with change of mental status , hypothermia and hypoxic Resp Failure, intubated for Resp Failure, also had right sided chest tube placement.Patient procalcitonin level is high, on IV antibiotics as per ID.Patient is still requiring high FIO2 of oxygen,still hypotensive on pressors, Critical care team ID and Nephrology is following. Management plan was discussed in detail with patient Education was provided.
[2016-04-22] MEDS ORDERED: Albumin Human 25% (12.5 gm/50 ml) IV ONE ×3 (13:09→13:12)
[2016-04-22 13:56] LABS: ARTERIAL BLOOD GAS HCO3 22.5 mmol/L (21-28); ARTERIAL BLOOD GAS PH 7.37 (7.35-7.45); ATERIAL BLOOD GAS PEEP 5
--- NOTE | 2016-04-22 14:38 | PN ---
DATE: 04/22/2016 The patient was seen in the intensive care unit. He remains intubated, but is currently on a CPAP tr ial with an FiO2 of 50%. He is on Levophed and vasopressin, although these are being tapered down. A right-sided chest tube remains in place. The patient does have an A-line in place as well. He cross s not appear to be in any distress. He is awake. Wrist restraints are also in place. PHYSICAL EXAMINATION: VITAL SIGNS: Blood pressure is 94/63, minimum blood pressure in the last 24-hour period was 52/22 wi th a maximum of 123/64. Heart rate is 85, but has ranged from the 50s to approximately 118 beats per minute. Axillary temperature is 97.4 degrees, but he has ranged from 96.3 to 97.4 degrees. Respira tory rate is 16 breaths per minute, but has ranged from 16-45 breaths per minute. Oxygen saturation is 92%, but has ranged from 87%-97% with an FiO2 of 50%. GENERAL: The patient is status post hemodialysis yesterday. As stated above, he remains on the vent ilator. HEENT: Conjunctivae are not pale nor are they icteric. NECK: There was mild jugular venous distention that I could appreciated. He also did have a right i nternal jugular PermCath in place. CHEST: Lung paez were grossly clear to auscultation anteriorly and I could not appreciate any rale s, rhonchi or wheezing. He was noted to have a right-sided chest tube as well. CARDIAC: Showed a regular rate and rhythm without any rubs. ABDOMEN: Soft, distended with ascites, but nontender, without any rebounding, guarding or rigidity. EXTREMITIES: Had 2 to 3+ edema distal to his sacrum. Wrists were restrained. NEUROLOGIC: He was awake on the ventilator. LABORATORIES: White count is 11.9, H and H is 14/43.7 with a platelet count of 125,000, MCV is 92. There are 78% neutrophils, 5% lymphocytes, 15% monocytes, 1% eosinophils. ABG had a pH of 7.37 with a pCO2 of 41, PaO2 of 66 and an oxygen saturation of 94% on an FiO2 of 100%. Sodium is 133, potassiu m 3.7, chloride is 97, bicarbonate 29, BUN/creatinine is 26/4.5 with a glucose of 130. Calcium is 7, but after correcting for the albumin of 1.9, becomes 8.6. Phosphorus is 5.0. Magnesium is 1.8. Bl ood cultures have no growth to date. Chest x-ray revealed a right-sided chest tube without any pleural effusion or pneumothorax, although the patient did have a left-sided small pleural effusion. IMPRESSION AND PLAN: The patient is a 50-year-old gentleman with a known history of alcohol abuse as well as cocaine and heroin abuse, cirrhosis, end-stage renal disease on hemodialysis every Monday, , Monday via right internal jugular PermCath at [facility], brought into [facility] after being found to be lethargic and hypothermic with an improvement in his mental status fol lowing 2 doses of Narcan. He also has a known history of coronary artery disease with coronary arter y bypass graft as well as chronic hepatitis C. He is in septic shock, thought to be secondary to asp iration pneumonia, for which he is currently on Levophed as well as vasopressin, although these are b eing tapered down. 1. For now, we will continue Levophed as well as vasopressin. Since the patient is hypotensive at [facility], targeting a mean arterial pressure of 65 mmHg is unnecessary. 2. The patient is status post hemodialysis yesterday. He will have hemodialysis again tomorrow with as much fluid removal as he can tolerate hemodynamically. 3. The patient is currently on meropenem 500 mg intravenously twice daily for presumed aspiration pn eumonia and clinically his respiratory status appears to be improving. 4. When feeding eventually resumes, he will need PhosLo 667 mg via nasogastric tube, orogastric tube or orally depending on when it is to begin. 5. For deep venous thrombosis prophylaxis, the patient is currently on heparin 5000 units subcutaneo usly twice daily. 6. For history of hepatic encephalopathy, he is currently receiving lactulose as well. 7. The patient is on hydrocortisone since he is also on 2 pressors and for gastrointestinal prophyla xis, on pantoprazole. 8. Continue attempts to wean the patient off the ventilator. 9. Next hemodialysis session is tomorrow. Via the chart, review of systems, past medical history, social history and family history were review ed without any new changes. More than 35 minutes were spent in the care of this ICU patient today. Jose Gonzalez MD cc: [id number] TT: 04/22/2016 14:38:10 Confirmation # [id number] Dictation # [id number]
[2016-04-22] MEDS ORDERED: Sodium Chloride 0.9% 500 ML IV STA (15:20)
[2016-04-22] MEDS ORDERED: Vancomycin 1gm in NS 250ml 250 ML IVPB STA (16:01)
--- NOTE | 2016-04-22 16:06 | CP.PCM.PN ---
Subjective - Date & Time of Evaluation Date of Evaluation: 04/22/16 Time of Evaluation: 13:20 - Subjective Subjective: Patient continues to be on the ventilator and is sedated. Still on vasopressors. Currently afebrile. Objective - Vital Signs/Intake and Output Vital Signs (last 24 hours): Temp Pulse Resp BP Pulse Ox 97.4 F L 97 H 16 94/63 L 92 L 04/22/16 12:00 04/22/16 12:00 04/22/16 12:00 04/22/16 12:00 04/22/16 12:00 Intake and Output: 04/22/16 04/22/16 06:59 18:59 Intake Total 0 Balance 0 - Medications Medications: Current Medications Albuterol/Ipratropium (Duoneb 3 Mg/0.5 Mg (3 Ml) Ud) 3 ml IH [id number] PRN PRN Reason: Shortness of Breath Calcium Acetate (Phoslo) 667 mg PO WM [facility] Last Admin: 04/22/16 10:32 Dose: 667 mg Heparin Sodium (Porcine) (Heparin) 5,000 units SC Q12 SIMON PRN Reason: Protocol Last Admin: 04/22/16 12:53 Dose: Not Given Hydrocortisone Sodium Succinate (Solu-Cortef) 50 mg IVP Q6H [facility] Last Admin: 04/22/16 10:33 Dose: 50 mg Propofol (Diprivan) 100 mls @ 2.36 mls/hr IV .Q24H PRN; Protocol; 5 MCG/KG/MIN PRN Reason: TITRATE PER MD ORDER Last Titration: 04/21/16 08:25 Dose: 0 mcg/kg/min Norepinephrine Bitartrate 4 mg (/ Dextrose) 254 mls @ 15.24 mls/hr IV .[id number] PRN; Protocol; 4 MCG/MIN PRN Reason: TITRATE PER MD ORDER Last Titration: 04/22/16 08:30 Dose: 20 mcg/min Meropenem 500 mg/ Sodium (Chloride) 100 mls @ 100 mls/hr IVPB Q12 SIMON PRN Reason: Protocol Stop: 04/28/16 10:01 Last Admin: 04/22/16 10:34 Dose: 100 mls/hr Phenylephrine HCl 40 mg/ (Sodium Chloride) 254 mls @ 38.1 mls/hr IV .Q6H40M PRN ; Protocol; 100 MCG/MIN PRN Reason: TITRATE PER MD ORDER Last Titration: 04/22/16 08:50 Dose: 0 mcg/min Vasopressin 20 units/ Sodium (Chloride) 101 mls @ 9.09 mls/hr IV .Q11H7M SIMON; 0.03 U/MIN PRN Reason: Protocol Last Admin: 04/22/16 05:15 Dose: 9.09 mls/hr Dopamine HCl/Dextrose (Dopamine 400mg/250ml D5w) 250 mls @ 5.899 mls/hr IV .Q24H PRN; Protocol; 2 MCG/KG/MIN PRN Reason: TITRATE PER MD ORDER Last Titration: 04/22/16 13:12 Dose: 0 mcg/kg/min Lactulose (Enulose) 20 gm PO BID [facility] Last Admin: 04/22/16 10:32 Dose: 20 gm Lorazepam (Ativan) 2 mg IVP Q2H PRN; Protocol PRN Reason: Agitation Last Admin: 04/21/16 14:03 Dose: 2 mg Midodrine (Proamatine) 10 mg PO Q12H [facility] Last Admin: 04/22/16 10:34 Dose: 10 mg Morphine Sulfate (Morphine) 2 mg IVP Q4H PRN PRN Reason: Pain, moderate (4-7) Last Admin: 04/21/16 10:59 Dose: 2 mg Pantoprazole Sodium (Protonix Inj) 40 mg IVP DAILY [facility] Last Admin: 04/22/16 10:33 Dose: 40 mg - Labs Labs: 04/22/16 06:30 04/22/16 06:30 PT 12.4 Seconds (9.9-11.8) H 04/19/16 12:56 INR 1.15 (0.93-1.08) H 04/19/16 12:56 APTT 32.2 Seconds (23.7-30.8) H 04/21/16 06:00 - Constitutional Appears: Other (Intubated and sedated) - Head Exam Head Exam: NORMAL INSPECTION - ENT Exam Additional comments: ET tube in place - Neck Exam Neck Exam: absent: Lymphadenopathy, Meningismus - Respiratory Exam Respiratory Exam: Decreased Breath Sounds, Rales (scattered) Additional comments: right anterior chest wall permacath site intact and clean - Cardiovascular Exam Cardiovascular Exam: +S1, +S2 - GI/Abdominal Exam GI & Abdominal Exam: Soft. absent: Tenderness - Extremities Exam Additional comments: right femoral central venous catheter in place Assessment and Plan - Assessment and Plan (Free Text) Plan: Assessment Septic shock with multiorgan dysfunction syndrome (MODS) with acute toxic- metabolic encephalopathy, chronic renal failure, hypoxic ventilator-dependent respiratory failure with probable right sided severe healthcare-associated pneumonia with pleural effusion S/P chest tube placement POD #1 in a patient who possibly overdosed on heroin CAD S/P CABG ESRD on HD history of lymphadenopathy Plan continue intermittent Vancomycin IV and Meropenem (day 2) pending identification of the gram positive cocci in the sputum cx as well as cultures of the pleural fluid; blood cx are negative; reviewed CXR and CT chest Discussed with Dr. Nava Patient continues to be in critical condition
[2016-04-22 16:08] LABS: BODY FLUID TYPE PERITONEAL/ASCITES
[2016-04-22 17:02] LABS: BF GROSS APPEARANCE CLEAR (CLEAR)
[2016-04-22 17:11] LABS: BODY FLUID TOTAL COUNT 100 (0-0)
--- NOTE | 2016-04-22 18:36 | US ---
PROCEDURE: Ultrasound guided paracentesis. HISTORY: Alcoholic cirrhosis recent ascites with abdominal pain and distention. Shortness of breath. PHYSICIAN(S): Josh Gayle MD. TECHNIQUE: The relative risks and indications for the procedure were explained to the patient and informed written consent obtained. Sonography of the abdomen was performed in a supine position. This revealed a moderate amount of non-loculated ascites, greatest in the right lower quadrant. A puncture site was selected and the area was prepped and draped in the usual sterile fashion. 1% Xylocaine was used to anesthetize the skin and soft tissues. A 7 Japanese paracentesis catheter was trocared into the right lower quadrantand 3000 cc of slightly turbid yellow fluid aspirated. The appropriate labs were sent. IMPRESSION: Ultrasound-guided paracentesis in the right lower quadrant. 3000 cc of slightly turbid fluid were aspirated. Labs were sent
--- NOTE | 2016-04-22 19:55 | US ---
PROCEDURE: Left upper extremity venous ultrasound HISTORY: Arm pain and swelling. Evaluate for deep venous thrombosis. PHYSICIAN(S): Josh Gayle MD. FINDINGS: There is echogenic occlusive thrombus noted in the left internal jugular vein. This is consistent with subacute thrombus The visualized segments of the left subclavian vein are patent with normal waveforms. No sonographic evidence of obstruction or thrombosis is seen. The visualized deep venous system of the proximal leftupper extremity is sonographically normal and compressible. IMPRESSION: 1. Subacute thrombus in the left internal jugular vein.
[2016-04-22] MEDS ORDERED: Norepinephrine 8 MG in Dextrose 5% In Water 500 ML IV PRN (21:31)
[2016-04-23 06:12] LABS: ADD MANUAL DIFF? NO
[2016-04-23 06:17] LABS: ARTERIAL BLOOD GAS HCO3 10.4 mmol/L (21-28); ARTERIAL BLOOD GAS O2 CAPACITY 10.7 mL/dl (16-24); ARTERIAL BLOOD GAS O2 CONTENT 10.5 ML/dl (15-23); ARTERIAL BLOOD GAS PH 7.37 (7.35-7.45); ARTERIAL BLOOD HGB O2 SAT 97.2 % (95.0-98.0); HHB 1.6 % (0-5); METHEMOGLOBIN 0.1 % (0.0-3.0)
[2016-04-23 06:20] LABS: BASO # 0.01 K/mm3 (0.0-2.0); BASO % 0.1 % (0.0-3.0); GRAN # 12.43 (1.4-6.5); GRAN % 85.6 % (50.0-68.0); HEMATOCRIT 39.3 % (42.0-52.0); LYMPH # 0.8 (1.2-3.4); LYMPH % 5.7 % (22.0-35.0); MEAN CELL VOLUME 90.1 fL (80.0-105.0); MEAN CORPUSCULAR HEMOGLOBIN 29.8 pg (25.0-35.0); MEAN CORPUSCULAR HGB CONC 33.1 g/dl (31.0-37.0); MEAN PLATELET VOLUME 11.5 fl (7.0-11.0); MONO # 1.3 (0.1-0.6); MONO % 8.6 % (1.0-6.0); PLATELET COUNT 106 10^3/uL (120.0-450.0); RED CELL DISTRIBUTION WIDTH 15.5 % (11.5-14.5); WHITE BLOOD COUNT 14.5 10^3/ul (4.5-11.0)
[2016-04-23 06:30] LABS: ALB/GLOB RATIO 0.9 (1.1-1.8); BILIRUBIN,TOTAL 1.7 mg/dL (0.2-1.3); MAGNESIUM 1.6 mg/dL (1.7-2.2); PHOSPHOROUS 5.3 mg/dL (2.5-4.5); POTASSIUM 3.7 mmol/L (3.6-5.0); TOTAL PROTEIN 4.3 g/dL (5.8-8.3)
[2016-04-23 06:33] LABS: CALCIUM 6.4 mg/dL (8.4-10.5)
--- NOTE | 2016-04-23 07:47 | CP.PCM.PN ---
<Karan Martinez - Last Filed: 04/23/16 08:33> Subjective - Date & Time of Evaluation Date of Evaluation: 04/23/16 Time of Evaluation: 07:25 - Subjective Subjective: PGY4 GI Fellow Progress Note Patient seen and examined bedside this morning. The patient is currently on a CPAP trial in attempt to wean off ventilator. He opens his eyes and is able to nod yes/no answers. Denies any abdominal discomfort at this time. No events overnight. 12 system ROS cannot be performed at this time. Objective - Vital Signs/Intake and Output Vital Signs (last 24 hours): Temp Pulse Resp BP Pulse Ox 97.8 F 69 14 95/57 L 95 04/23/16 04:00 04/22/16 21:00 04/22/16 16:00 04/23/16 04:33 04/22/16 21:00 Intake and Output: 04/23/16 04/23/16 06:59 18:59 Intake Total 1336 Output Total 3855 Balance -2519 - Medications Medications: Current Medications Albumin Human (Albumin Human 25% (12.5 Gm/50 Ml)) 12.5 gm IV Q1H SIMON Stop: 04/23/16 15:01 Albumin Human (Albumin Human 25% (12.5 Gm/50 Ml)) 12.5 gm IV Q1H SIMON Stop: 04/25/16 13:01 Albuterol/Ipratropium (Duoneb 3 Mg/0.5 Mg (3 Ml) Ud) 3 ml IH [id number] PRN PRN Reason: Shortness of Breath Calcium Acetate (Phoslo) 667 mg PO WM [facility] Last Admin: 04/22/16 17:16 Dose: 667 mg Heparin Sodium (Porcine) (Heparin) 5,000 units SC Q12 SIMON PRN Reason: Protocol Last Admin: 04/22/16 23:28 Dose: 5,000 units Hydrocortisone Sodium Succinate (Solu-Cortef) 50 mg IVP Q6H [facility] Last Admin: 04/23/16 01:36 Dose: 50 mg Propofol (Diprivan) 100 mls @ 2.36 mls/hr IV .Q24H PRN; Protocol; 5 MCG/KG/MIN PRN Reason: TITRATE PER MD ORDER Last Titration: 04/21/16 08:25 Dose: 0 mcg/kg/min Meropenem 500 mg/ Sodium (Chloride) 100 mls @ 100 mls/hr IVPB Q12 SIMON PRN Reason: Protocol Stop: 04/28/16 10:01 Last Admin: 04/22/16 23:29 Dose: 100 mls/hr Phenylephrine HCl 40 mg/ (Sodium Chloride) 254 mls @ 38.1 mls/hr IV .Q6H40M PRN ; Protocol; 100 MCG/MIN PRN Reason: TITRATE PER MD ORDER Last Titration: 04/22/16 08:50 Dose: 0 mcg/min Vasopressin 20 units/ Sodium (Chloride) 101 mls @ 9.09 mls/hr IV .Q11H7M SIMON; 0.03 U/MIN PRN Reason: Protocol Last Admin: 04/23/16 04:33 Dose: 9.09 mls/hr Dopamine HCl/Dextrose (Dopamine 400mg/250ml D5w) 250 mls @ 5.899 mls/hr IV .Q24H PRN; Protocol; 2 MCG/KG/MIN PRN Reason: TITRATE PER MD ORDER Last Titration: 04/22/16 13:12 Dose: 0 mcg/kg/min Norepinephrine Bitartrate 8 mg (/ Dextrose) 508 mls @ 95.25 mls/hr IV .Q5H20M PRN; Protocol; 25 MCG/MIN PRN Reason: TITRATE PER MD ORDER Last Titration: 04/23/16 06:39 Dose: 25 mcg/min Lactulose (Enulose) 20 gm PO BID SIMON Last Admin: 04/22/16 17:16 Dose: 20 gm Lorazepam (Ativan) 2 mg IVP Q2H PRN; Protocol PRN Reason: Agitation Last Admin: 04/21/16 14:03 Dose: 2 mg Midodrine (Proamatine) 10 mg PO Q12H SIMON Last Admin: 04/22/16 23:35 Dose: 10 mg Morphine Sulfate (Morphine) 2 mg IVP Q4H PRN PRN Reason: Pain, moderate (4-7) Last Admin: 04/21/16 10:59 Dose: 2 mg Pantoprazole Sodium (Protonix Inj) 40 mg IVP DAILY SIMON Last Admin: 04/22/16 10:33 Dose: 40 mg - Labs Labs: 04/23/16 06:00 04/23/16 06:00 PT 12.4 Seconds (9.9-11.8) H 04/19/16 12:56 INR 1.15 (0.93-1.08) H 04/19/16 12:56 APTT 32.2 Seconds (23.7-30.8) H 04/21/16 06:00 - Constitutional Appears: Non-toxic, No Acute Distress - Eye Exam Eye Exam: EOMI, PERRL - ENT Exam ENT Exam: Mucous Membranes Dry - Respiratory Exam Respiratory Exam: Rales, Rhonchi. absent: Wheezes Additional comments: B/L air entry; ETT in place on CPAP/PS - Cardiovascular Exam Cardiovascular Exam: RRR, +S1, +S2 - GI/Abdominal Exam GI & Abdominal Exam: Soft, Hernia (umbilical, reducible), Normal Bowel Sounds. absent: Distended, Firm, Guarding, Rigid, Tenderness, Organomegaly - Extremities Exam Extremities Exam: absent: Pedal Edema - Neurological Exam Neurological Exam: Alert, Awake - Skin Skin Exam: Dry, Warm Assessment and Plan - Assessment and Plan (Free Text) Assessment: 50yo male with history of CAD s/p CABG, chronic Hepatitis C, ESRD on hemodialysis (//Mon), polysubstance abuse admitted to ICU with altered mental status. Currently in septic shock likely secondary to aspriation pneumonia. -HCV decompensated cirrhosis -Spontaneous bacterial peritonitis -Pneumonia -ESRD on hemodialysis -CAD/CABG -Polysubstance abuse Plan: -Encourage continuation of broad spectrum ABX, ID following -Ascitic fluid c/w SBP, given albumin 1.5gm/kg today and 1gm/kg on Monday -Presently being weaned off of ventilator -Swallow eval once extubated, encourage PO intake if pt can tolerate -HD as scheduled -Lactulose as ordered, Rifaximin discontinued <Ezekiel Quiroz - Last Filed: 04/23/16 11:49> Objective - Vital Signs/Intake and Output Vital Signs (last 24 hours): Temp Pulse Resp BP Pulse Ox 97.0 F L 69 14 95/57 L 95 04/23/16 08:00 04/22/16 21:00 04/22/16 16:00 04/23/16 04:33 04/22/16 21:00 Intake and Output: 04/23/16 04/23/16 06:59 18:59 Intake Total 1336 Output Total 3855 Balance -2519 - Medications Medications: Current Medications Albumin Human (Albumin Human 25% (12.5 Gm/50 Ml)) 12.5 gm IV Q1H SIMON Stop: 04/23/16 15:01 Last Admin: 04/23/16 11:01 Dose: 12.5 gm Albumin Human (Albumin Human 25% (12.5 Gm/50 Ml)) 12.5 gm IV Q1H SIMON Stop: 04/25/16 13:01 Albuterol/Ipratropium (Duoneb 3 Mg/0.5 Mg (3 Ml) Ud) 3 ml IH [id number] PRN PRN Reason: Shortness of Breath Last Admin: 04/23/16 08:23 Dose: 3 ml Calcium Acetate (Phoslo) 667 mg PO WM SIMON Last Admin: 04/23/16 08:59 Dose: Not Given Hydrocortisone Sodium Succinate (Solu-Cortef) 50 mg IVP Q6H SIMON Last Admin: 04/23/16 08:39 Dose: 50 mg Propofol (Diprivan) 100 mls @ 2.36 mls/hr IV .Q24H PRN; Protocol; 5 MCG/KG/MIN PRN Reason: TITRATE PER MD ORDER Last Titration: 04/21/16 08:25 Dose: 0 mcg/kg/min Meropenem 500 mg/ Sodium (Chloride) 100 mls @ 100 mls/hr IVPB Q12 SIMON PRN Reason: Protocol Stop: 04/28/16 10:01 Last Admin: 04/22/16 23:29 Dose: 100 mls/hr Phenylephrine HCl 40 mg/ (Sodium Chloride) 254 mls @ 38.1 mls/hr IV .Q6H40M PRN ; Protocol; 100 MCG/MIN PRN Reason: TITRATE PER MD ORDER Last Titration: 04/22/16 08:50 Dose: 0 mcg/min Vasopressin 20 units/ Sodium (Chloride) 101 mls @ 9.09 mls/hr IV .Q11H7M SIMON; 0.03 U/MIN PRN Reason: Protocol Last Admin: 04/23/16 04:33 Dose: 9.09 mls/hr Dopamine HCl/Dextrose (Dopamine 400mg/250ml D5w) 250 mls @ 5.899 mls/hr IV .Q24H PRN; Protocol; 2 MCG/KG/MIN PRN Reason: TITRATE PER MD ORDER Last Titration: 04/22/16 13:12 Dose: 0 mcg/kg/min Heparin Sodium/Sodium Chloride (Heparin 33691 Units/250ml 1/2 Normal Saline) 250 mls @ 14.158 mls/hr IV .[id number] PRN; Protocol; 18 UNITS/KG/HR PRN Reason: ADJUST RATE PER PROTOCOL Last Admin: 04/23/16 08:18 Dose: 14.158 mls/hr Norepinephrine Bitartrate 16 (mg/ Dextrose) 1,016 mls @ 95.25 mls/hr IV .[id number] PRN; Protocol; 25 MCG/MIN PRN Reason: TITRATE PER MD ORDER Lactulose (Enulose) 20 gm PO BID SIMON Last Admin: 04/22/16 17:16 Dose: 20 gm Lorazepam (Ativan) 2 mg IVP Q2H PRN; Protocol PRN Reason: Agitation Last Admin: 04/21/16 14:03 Dose: 2 mg Midodrine (Proamatine) 10 mg PO Q12H SIMON Last Admin: 04/22/16 23:35 Dose: 10 mg Morphine Sulfate (Morphine) 2 mg IVP Q4H PRN PRN Reason: Pain, moderate (4-7) Last Admin: 04/21/16 10:59 Dose: 2 mg Pantoprazole Sodium (Protonix Inj) 40 mg IVP DAILY SIMON Last Admin: 04/22/16 10:33 Dose: 40 mg - Labs Labs: 04/23/16 06:00 04/23/16 06:00 PT 12.4 Seconds (9.9-11.8) H 04/19/16 12:56 INR 1.15 (0.93-1.08) H 04/19/16 12:56 APTT 32.2 Seconds (23.7-30.8) H 04/21/16 06:00 Attending/Attestation - Attestation I have personally seen and examined this patient.: Yes I have fully participated in the care of the patient.: Yes I have reviewed all pertinent clinical information, including history, physical exam and plan: Yes Notes (Text): 04/23/16 11:47 50 year old male with h/o CAD s/p CABG, chronic hepatitis C, ESRD on HD, polysubstance abuse including current heroin use admitted with altered mental status. 1. Altered mental status 2. Ascites 3. SBP 4. Chronic hepatitis C Plan: -no definite diagnosis of cirrhosis on imaging, but he does have thrombocytopenia, chronic hepatitis c, prior history of EtOH abuse, and high SAAG ascites in the past -has severe pneumonia and sepsis, intubated, on pressor support, critically ill -pressors are being weaned -he has SBP -he is on antibiotics and albumin -he may be extubated today -continue lactulose and rifaxamin -recommend broad spectrum IV antibiotics -supportive care
--- NOTE | 2016-04-23 08:00 | CP.PCM.PN ---
Subjective - Date & Time of Evaluation Date of Evaluation: 04/23/16 Time of Evaluation: 07:58 - Subjective Subjective: Surgery for Dr. ballesteros Pt s&e. Intubated. Arouasable. Follows commands. CT in place. 900cc/24hrs. Pt underwent paracenthesis yesterday and tolerated it well. 3 L output. Objective - Vital Signs/Intake and Output Vital Signs (last 24 hours): Temp Pulse Resp BP Pulse Ox 97.8 F 69 14 95/57 L 95 04/23/16 04:00 04/22/16 21:00 04/22/16 16:00 04/23/16 04:33 04/22/16 21:00 Intake and Output: 04/23/16 04/23/16 06:59 18:59 Intake Total 1336 Output Total 3855 Balance -2519 - Medications Medications: Current Medications Albumin Human (Albumin Human 25% (12.5 Gm/50 Ml)) 12.5 gm IV Q1H SIMON Stop: 04/23/16 15:01 Albumin Human (Albumin Human 25% (12.5 Gm/50 Ml)) 12.5 gm IV Q1H SIMON Stop: 04/25/16 13:01 Albuterol/Ipratropium (Duoneb 3 Mg/0.5 Mg (3 Ml) Ud) 3 ml IH [id number] PRN PRN Reason: Shortness of Breath Calcium Acetate (Phoslo) 667 mg PO WM SIMON Last Admin: 04/22/16 17:16 Dose: 667 mg Hydrocortisone Sodium Succinate (Solu-Cortef) 50 mg IVP Q6H SIMON Last Admin: 04/23/16 01:36 Dose: 50 mg Propofol (Diprivan) 100 mls @ 2.36 mls/hr IV .Q24H PRN; Protocol; 5 MCG/KG/MIN PRN Reason: TITRATE PER MD ORDER Last Titration: 04/21/16 08:25 Dose: 0 mcg/kg/min Meropenem 500 mg/ Sodium (Chloride) 100 mls @ 100 mls/hr IVPB Q12 SIMON PRN Reason: Protocol Stop: 04/28/16 10:01 Last Admin: 04/22/16 23:29 Dose: 100 mls/hr Phenylephrine HCl 40 mg/ (Sodium Chloride) 254 mls @ 38.1 mls/hr IV .Q6H40M PRN ; Protocol; 100 MCG/MIN PRN Reason: TITRATE PER MD ORDER Last Titration: 04/22/16 08:50 Dose: 0 mcg/min Vasopressin 20 units/ Sodium (Chloride) 101 mls @ 9.09 mls/hr IV .Q11H7M SIMON; 0.03 U/MIN PRN Reason: Protocol Last Admin: 04/23/16 04:33 Dose: 9.09 mls/hr Dopamine HCl/Dextrose (Dopamine 400mg/250ml D5w) 250 mls @ 5.899 mls/hr IV .Q24H PRN; Protocol; 2 MCG/KG/MIN PRN Reason: TITRATE PER MD ORDER Last Titration: 04/22/16 13:12 Dose: 0 mcg/kg/min Norepinephrine Bitartrate 8 mg (/ Dextrose) 508 mls @ 95.25 mls/hr IV .Q5H20M PRN; Protocol; 25 MCG/MIN PRN Reason: TITRATE PER MD ORDER Last Titration: 04/23/16 06:39 Dose: 25 mcg/min Heparin Sodium/Sodium Chloride (Heparin 01201 Units/250ml 1/2 Normal Saline) 250 mls @ 14.158 mls/hr IV .[id number] PRN; Protocol; 18 UNITS/KG/HR PRN Reason: ADJUST RATE PER PROTOCOL Lactulose (Enulose) 20 gm PO BID [facility] Last Admin: 04/22/16 17:16 Dose: 20 gm Lorazepam (Ativan) 2 mg IVP Q2H PRN; Protocol PRN Reason: Agitation Last Admin: 04/21/16 14:03 Dose: 2 mg Midodrine (Proamatine) 10 mg PO Q12H SIMON Last Admin: 04/22/16 23:35 Dose: 10 mg Morphine Sulfate (Morphine) 2 mg IVP Q4H PRN PRN Reason: Pain, moderate (4-7) Last Admin: 04/21/16 10:59 Dose: 2 mg Pantoprazole Sodium (Protonix Inj) 40 mg IVP DAILY [facility] Last Admin: 04/22/16 10:33 Dose: 40 mg - Labs Labs: 04/23/16 06:00 04/23/16 06:00 PT 12.4 Seconds (9.9-11.8) H 04/19/16 12:56 INR 1.15 (0.93-1.08) H 04/19/16 12:56 APTT 32.2 Seconds (23.7-30.8) H 04/21/16 06:00 - Constitutional Appears: Non-toxic - Head Exam Head Exam: ATRAUMATIC, NORMAL INSPECTION, NORMOCEPHALIC - Eye Exam Eye Exam: EOMI, Normal appearance, PERRL Pupil Exam: NORMAL ACCOMODATION, PERRL - ENT Exam ENT Exam: Mucous Membranes Moist, Normal Exam - Neck Exam Neck Exam: Full ROM, Normal Inspection. absent: Lymphadenopathy - Respiratory Exam Respiratory Exam: Respiratory Distress. absent: NORMAL BREATHING PATTERN Additional comments: ETT. CT on R side: 900cc /24hrs SS - Cardiovascular Exam Cardiovascular Exam: REGULAR RHYTHM, +S1, +S2 - GI/Abdominal Exam GI & Abdominal Exam: Soft. absent: Distended - Extremities Exam Extremities Exam: Normal Inspection - Back Exam Back Exam: NORMAL INSPECTION - Neurological Exam Neurological Exam: Awake - Skin Skin Exam: Dry, Intact, Normal Color, Warm Assessment and Plan - Assessment and Plan (Free Text) Assessment: 50M with respiratory failure and pleural effusions, s/p right chest tube placement POD#2 Plan: - Monitor dressing, chest tube placement - daily CXR, monitor chest tube output - Monitor A-line site discussed with Dr. Ballesteros
[2016-04-23] MEDS: Heparin25000 units/250ml 1/2NS 250 ML IV PRN (08:18)
[2016-04-23] MEDS: Albumin Human 25% (12.5 gm/50 ml) IV SCH ×9 (08:20→15:22)
[2016-04-23] MEDS: Albuterol-Ipratrop 3 mg / 0.5 (3 ml) UD IH PRN ×2 (08:23→13:53)
--- NOTE | 2016-04-23 08:51 | PN ---
DATE: 04/23/2016 The patient was seen earlier this morning in room 129, bed 4. The patient had an uneventful night nu rse caring for the patient stated. The patient has been afebrile. The patient still has the chest t ube. There has been no chest pain that is new. No nausea or vomiting. He is tolerating the antibio tics well. PHYSICAL EXAMINATION: VITAL SIGNS: Temperature is 97, blood pressure is 95/50. Respiratory rate: The patient is on the v ent and heart rate is 69. HEENT: Noted. NECK: Supple. LUNGS: Decreased. HEART: S1, S2. ABDOMEN: Soft, nontender, no rebound or guarding. LABORATORY DATA: Reveals a white count of 14,500, hemoglobin of 13, platelets of 106 with a creatini ne 4.5. Last procalcitonin on 04/21 was 2.89. Review of the microbiology reveals the blood cultures a re negative. Sputum culture is pending. The gram stain shows gram-positive cocci in the sputum. Th e ascitic fluid culture is no organisms on the gram stain, no fungal elements are seen. The culture is pending on the ascitic fluid. Review of the orders. The patient to be on meropenem, dose adjusted for renal failure, intermittent vancomycin. Dr. Beck's note is reviewed. Dr. Chase ____ note is reviewed from today. The chest x-ray result from this morning is pending. The patient had an ultrasound that showed a subacute thrombus in the left internal jugular vein. This is a 50-year-old male who was seen earlier this morning in the CCU 129, bed 4 with septic shock with multiorgan dysfunction syndrome, acute toxic metabolic encephalopathy, chronic renal failure, hy poxic, ventilatory dependent respiratory failure with probable right-sided severe healthcare-associat ed pneumonia, possible gram-positive cocci, possible gram-negative juana with a pleural effusion status post chest tube placement, postop procedure day 2. Possible of overdose of heroin in a patient with a subacute thrombus in the left internal jugular vein with cultures negative so far. On meropenem a nd intermittent vancomycin. The patient also has coronary artery disease, status post coronary bypas s graft, end-stage renal disease on hemodialysis, history of lymphadenopathy. Overall, prognosis is quite poor. Krystian Young MD cc: 350 TT: 04/23/2016 08:51:17 Confirmation # [id number] Dictation # [id number]
--- NOTE | 2016-04-23 09:10 | CP.PCM.PN ---
<Jocye Ceja - Last Filed: 04/23/16 09:07> Subjective - Date & Time of Evaluation Date of Evaluation: 04/23/16 Time of Evaluation: 07:30 - Subjective Subjective: Medicine progress note for Dr Villanueva. Patient seen, and examined at bedside, in ICU. Patient is still intubated, off of sedation. Patient is alert, follows to simple commands. Patient denies any abdominal or chest pain. No acute events overnight night as per nurse. Patient is currently on CPAP trial. Patient is on vasopressin and levophed drips. Objective - Vital Signs/Intake and Output Vital Signs (last 24 hours): Temp Pulse Resp BP Pulse Ox 97.8 F 69 14 95/57 L 95 04/23/16 04:00 04/22/16 21:00 04/22/16 16:00 04/23/16 04:33 04/22/16 21:00 Intake and Output: 04/23/16 04/23/16 06:59 18:59 Intake Total 1336 Output Total 3855 Balance -2519 - Medications Medications: Current Medications Albumin Human (Albumin Human 25% (12.5 Gm/50 Ml)) 12.5 gm IV Q1H SIMON Stop: 04/23/16 15:01 Last Admin: 04/23/16 08:20 Dose: 12.5 gm Albumin Human (Albumin Human 25% (12.5 Gm/50 Ml)) 12.5 gm IV Q1H SIMON Stop: 04/25/16 13:01 Albuterol/Ipratropium (Duoneb 3 Mg/0.5 Mg (3 Ml) Ud) 3 ml IH [id number] PRN PRN Reason: Shortness of Breath Last Admin: 04/23/16 08:23 Dose: 3 ml Calcium Acetate (Phoslo) 667 mg PO WM SIMON Last Admin: 04/23/16 08:59 Dose: Not Given Hydrocortisone Sodium Succinate (Solu-Cortef) 50 mg IVP Q6H SIMON Last Admin: 04/23/16 08:39 Dose: 50 mg Propofol (Diprivan) 100 mls @ 2.36 mls/hr IV .Q24H PRN; Protocol; 5 MCG/KG/MIN PRN Reason: TITRATE PER MD ORDER Last Titration: 04/21/16 08:25 Dose: 0 mcg/kg/min Meropenem 500 mg/ Sodium (Chloride) 100 mls @ 100 mls/hr IVPB Q12 SIMON PRN Reason: Protocol Stop: 04/28/16 10:01 Last Admin: 04/22/16 23:29 Dose: 100 mls/hr Phenylephrine HCl 40 mg/ (Sodium Chloride) 254 mls @ 38.1 mls/hr IV .Q6H40M PRN ; Protocol; 100 MCG/MIN PRN Reason: TITRATE PER MD ORDER Last Titration: 04/22/16 08:50 Dose: 0 mcg/min Vasopressin 20 units/ Sodium (Chloride) 101 mls @ 9.09 mls/hr IV .Q11H7M SIMON; 0.03 U/MIN PRN Reason: Protocol Last Admin: 04/23/16 04:33 Dose: 9.09 mls/hr Dopamine HCl/Dextrose (Dopamine 400mg/250ml D5w) 250 mls @ 5.899 mls/hr IV .Q24H PRN; Protocol; 2 MCG/KG/MIN PRN Reason: TITRATE PER MD ORDER Last Titration: 04/22/16 13:12 Dose: 0 mcg/kg/min Norepinephrine Bitartrate 8 mg (/ Dextrose) 508 mls @ 95.25 mls/hr IV .Q5H20M PRN; Protocol; 25 MCG/MIN PRN Reason: TITRATE PER MD ORDER Last Titration: 04/23/16 06:39 Dose: 25 mcg/min Heparin Sodium/Sodium Chloride (Heparin 96754 Units/250ml 1/2 Normal Saline) 250 mls @ 14.158 mls/hr IV .[id number] PRN; Protocol; 18 UNITS/KG/HR PRN Reason: ADJUST RATE PER PROTOCOL Last Admin: 04/23/16 08:18 Dose: 14.158 mls/hr Lactulose (Enulose) 20 gm PO BID SIMON Last Admin: 04/22/16 17:16 Dose: 20 gm Lorazepam (Ativan) 2 mg IVP Q2H PRN; Protocol PRN Reason: Agitation Last Admin: 04/21/16 14:03 Dose: 2 mg Midodrine (Proamatine) 10 mg PO Q12H SIMON Last Admin: 04/22/16 23:35 Dose: 10 mg Morphine Sulfate (Morphine) 2 mg IVP Q4H PRN PRN Reason: Pain, moderate (4-7) Last Admin: 04/21/16 10:59 Dose: 2 mg Pantoprazole Sodium (Protonix Inj) 40 mg IVP DAILY SIMON Last Admin: 04/22/16 10:33 Dose: 40 mg - Labs Labs: 04/23/16 06:00 04/23/16 06:00 PT 12.4 Seconds (9.9-11.8) H 04/19/16 12:56 INR 1.15 (0.93-1.08) H 04/19/16 12:56 APTT 32.2 Seconds (23.7-30.8) H 04/21/16 06:00 - Constitutional Appears: No Acute Distress, Older Than Stated Age, Chronically Ill - Head Exam Head Exam: ATRAUMATIC, NORMAL INSPECTION, NORMOCEPHALIC - Eye Exam Eye Exam: EOMI, Normal appearance, PERRL. absent: Scleral icterus - ENT Exam ENT Exam: Mucous Membranes Moist Additional comments: ETT in place. - Neck Exam Neck Exam: Normal Inspection - Respiratory Exam Respiratory Exam: Decreased Breath Sounds (in the left with mild crackles. ), NORMAL BREATHING PATTERN. absent: Rhonchi, Wheezes, Respiratory Distress, Stridor Additional comments: intubated. - Cardiovascular Exam Cardiovascular Exam: REGULAR RHYTHM, RRR, +S1, +S2. absent: JVD, Rubs, Murmur - GI/Abdominal Exam GI & Abdominal Exam: Soft, Normal Bowel Sounds. absent: Distended, Firm, Guarding, Rigid, Tenderness - Extremities Exam Extremities Exam: absent: Pedal Edema Additional comments: b/l edema on the upper extremities. - Neurological Exam Neurological Exam: Alert, Awake - Psychiatric Exam Psychiatric exam: Normal Affect, Normal Mood - Skin Skin Exam: Dry, Warm Additional comments: + abrasions and ecchymosis on b/l upper extremities. Right HD port cath with clean dressing. Right femoral A-line with clean dressing. Left old IJ site with ecchymosis. Assessment and Plan - Assessment and Plan (Free Text) Assessment: Patient is a 50 y/o with PMH of alcohol abuse, heroine and cocaine abuse, liver cirrhosis with chronic hep c, CAD with CAGB in the past, ESRD on HD ( , , and mon) presented after patient was found lethargic with possible heroine overdose, and is currently admitted with septic shock with pneumonia as the possible source, complicated with toxic metabolic encephalopathy. Plan: 1) Septic shock with HAP versus aspiration pneumonia as the possible source - R/O SBP, s/p paracentesis, pending cultures and cytology. - Patient is on levophed drip and vasopressin with stress dose steroid - Patient is also on midodrine - Continue titrating vasopresors to maintain MAP above 60%. - echo with normal EF, mod-severe pulm htn ( please emr for full report) - Patient is on antibiotics 2) HAP versus aspiration pneumonia complicated with hypoxemic respiratory failure. - CTPE negative for PE. - s/p intubation - currently on CPAP trials - Continue pulmonary toileting, HOB elevated above 35 degrees, and bronchodilators, - Patient had CT chest wich revealed b/l pleural effusion R>L, s/p chest tube placement POD#2. - Repeat chest x-ray with improvement of the right sided effusion, left sided remains stable - Procal elevated, WBC slightly elevated, afebrile. - s/p mendieta cultures, so far no growth - Patient is on merrem and intermittent vanco with HD. - So far no - ID following 3) Subacute thrombosis in the left IJ vein on u/s - Started on heparin drip - monitor PTT as per protocol 4) Distended abdomen secondary to liver ascites from chronic liver cirrhosis from chronic alcohol abuse and hep. - s/p paracentesis by IR, with 3000cc of turbid fluid removed - Pending cytology and cultures, LDH, albumin and protein. - Patient is on broadspectrum antibiotics. - Gi following 5) ESRD with HD Tues, henrique, and sat - HD today - Renal following - On phoslo for hyperphosphatemia 6) Polysubstance abuse - On ativan prn 7) Toxic encephalopathy - mental status seems to be improving - Patient is off of sedation - empirically being treated for possible hepatic encaphalopathy with lactulose. 8) Malnutrition - getting albumin for hypoalbumenemia - on OGT feeding with renal diet. 9) Mild hyponatremia- will monitor for now 10) Hypomagnesemia- will replete and continue to monitor. 11) DVT prophyalxis: on heparin drip for left IJ thrombosis 12) GI prophyalxis: - protonix Patient seen, examined, case discussed with Dr Villanueva. <Rich RILEYLuis - Last Filed: 04/23/16 10:13> Objective - Vital Signs/Intake and Output Vital Signs (last 24 hours): Temp Pulse Resp BP Pulse Ox 97.0 F L 69 14 95/57 L 95 04/23/16 08:00 04/22/16 21:00 04/22/16 16:00 04/23/16 04:33 04/22/16 21:00 Intake and Output: 04/23/16 04/23/16 06:59 18:59 Intake Total 1336 Output Total 3855 Balance -2519 - Medications Medications: Current Medications Albumin Human (Albumin Human 25% (12.5 Gm/50 Ml)) 12.5 gm IV Q1H SIMON Stop: 04/23/16 15:01 Last Admin: 04/23/16 10:08 Dose: 12.5 gm Albumin Human (Albumin Human 25% (12.5 Gm/50 Ml)) 12.5 gm IV Q1H SIMON Stop: 04/25/16 13:01 Albuterol/Ipratropium (Duoneb 3 Mg/0.5 Mg (3 Ml) Ud) 3 ml IH [id number] PRN PRN Reason: Shortness of Breath Last Admin: 04/23/16 08:23 Dose: 3 ml Calcium Acetate (Phoslo) 667 mg PO WM SIMON Last Admin: 04/23/16 08:59 Dose: Not Given Hydrocortisone Sodium Succinate (Solu-Cortef) 50 mg IVP Q6H SIMON Last Admin: 04/23/16 08:39 Dose: 50 mg Propofol (Diprivan) 100 mls @ 2.36 mls/hr IV .Q24H PRN; Protocol; 5 MCG/KG/MIN PRN Reason: TITRATE PER MD ORDER Last Titration: 04/21/16 08:25 Dose: 0 mcg/kg/min Meropenem 500 mg/ Sodium (Chloride) 100 mls @ 100 mls/hr IVPB Q12 SIMON PRN Reason: Protocol Stop: 04/28/16 10:01 Last Admin: 04/22/16 23:29 Dose: 100 mls/hr Phenylephrine HCl 40 mg/ (Sodium Chloride) 254 mls @ 38.1 mls/hr IV .Q6H40M PRN ; Protocol; 100 MCG/MIN PRN Reason: TITRATE PER MD ORDER Last Titration: 04/22/16 08:50 Dose: 0 mcg/min Vasopressin 20 units/ Sodium (Chloride) 101 mls @ 9.09 mls/hr IV .Q11H7M SIMON; 0.03 U/MIN PRN Reason: Protocol Last Admin: 04/23/16 04:33 Dose: 9.09 mls/hr Dopamine HCl/Dextrose (Dopamine 400mg/250ml D5w) 250 mls @ 5.899 mls/hr IV .Q24H PRN; Protocol; 2 MCG/KG/MIN PRN Reason: TITRATE PER MD ORDER Last Titration: 04/22/16 13:12 Dose: 0 mcg/kg/min Norepinephrine Bitartrate 8 mg (/ Dextrose) 508 mls @ 95.25 mls/hr IV .Q5H20M PRN; Protocol; 25 MCG/MIN PRN Reason: TITRATE PER MD ORDER Last Titration: 04/23/16 09:19 Dose: 30 mcg/min Heparin Sodium/Sodium Chloride (Heparin 14541 Units/250ml 1/2 Normal Saline) 250 mls @ 14.158 mls/hr IV .[id number] PRN; Protocol; 18 UNITS/KG/HR PRN Reason: ADJUST RATE PER PROTOCOL Last Admin: 04/23/16 08:18 Dose: 14.158 mls/hr Magnesium Sulfate 2 gm/ Sodium (Chloride) 104 mls @ 102 mls/hr IV ONCE ONE Stop: 04/23/16 10:50 Lactulose (Enulose) 20 gm PO BID SIMON Last Admin: 04/22/16 17:16 Dose: 20 gm Lorazepam (Ativan) 2 mg IVP Q2H PRN; Protocol PRN Reason: Agitation Last Admin: 04/21/16 14:03 Dose: 2 mg Midodrine (Proamatine) 10 mg PO Q12H SIMON Last Admin: 04/22/16 23:35 Dose: 10 mg Morphine Sulfate (Morphine) 2 mg IVP Q4H PRN PRN Reason: Pain, moderate (4-7) Last Admin: 04/21/16 10:59 Dose: 2 mg Pantoprazole Sodium (Protonix Inj) 40 mg IVP DAILY SIMON Last Admin: 04/22/16 10:33 Dose: 40 mg - Labs Labs: 04/23/16 06:00 04/23/16 06:00 PT 12.4 Seconds (9.9-11.8) H 04/19/16 12:56 INR 1.15 (0.93-1.08) H 04/19/16 12:56 APTT 32.2 Seconds (23.7-30.8) H 04/21/16 06:00 Attending/Attestation - Attestation I have personally seen and examined this patient.: Yes I have fully participated in the care of the patient.: Yes I have reviewed all pertinent clinical information, including history, physical exam and plan: Yes Notes (Text): Patient was seen and examined with medical coder .Agreed with resident assessment and plan. 50 Y old male with hypoxic Resp Failure due to Aspiraion Pneumonia, Bilateral Pleural effusion, SP right sided chest tube, pleural fluid studies are pending, antibiotics as per ID.Patient hypoxia is improving, still requiring Ventilatory support, Patient is still hypotensive, requiring pressors, Critical care team is following. Patient mental status has improved, he is awake and is following command today. Prognosis is guarded.
[2016-04-23] MEDS ORDERED: Magnesium Sulfate 2 GM in Sodium Chloride 0.9% 100 ML IV ONE (09:49)
--- NOTE | 2016-04-23 09:54 | RAD ---
HISTORY: Chest tube. COMPARISON: Multiple serial examinations preceding the most recent study: April 20, 2016. FINDINGS: LUNGS: Improved aeration of the right lung. Progressive infiltrates left upper lobe. PLEURA: No appreciable right pleural effusion following chest tube placement. No pneumothorax. CARDIOVASCULAR: No significant interval change compared to the prior examination(s). Stable position of dialysis catheter. OSSEOUS STRUCTURES: No significant abnormalities. VISUALIZED UPPER ABDOMEN: Normal. OTHER FINDINGS: Satisfactory position of recently placed endotracheal tube and nasogastric tube. IMPRESSION: Status post chest tube placement right pleural space. Chest tube is in satisfactory position. No appreciable right pleural effusion. No active pulmonary disease/infiltrates right lung. Worsening left lung infiltrates, new, progressive infiltrate left upper lobe. Satisfactory position ventilatory, vascular and nasogastric apparatus.
[2016-04-23] MEDS ORDERED: WATER IV PRN (11:40)
[2016-04-23] MEDS ORDERED: NOREPINEPHRINE IV PRN (11:40)
[2016-04-23] MEDS ORDERED: DEXTROSE 5% IV PRN (11:40)
[2016-04-23] MEDS: Meropenem 500 MG in Sodium Chloride 0.9% 100 ML IVPB SCH ×2 (13:24→22:23)
--- NOTE | 2016-04-23 14:12 | PN ---
DATE: 04/23/2016 The patient seen and examined at bedside, comfortable. He is alert, awake, and following commands easily. He is on pressure support 5/5 and FiO2 of 50%. His O2 sat around 92-97. He is on dialysis. He still requires 30 mcg per minute of Levophed and his blood pressure 101/63. He is on vasopressin 0.03 units per minute. He is on heparin drip (yesterday's upper extremities venous Doppler revealed DVT). PHYSICAL EXAMINATION: HEAD AND NECK: Atraumatic. LUNGS: Clear to auscultation bilaterally. HEART: Regular rate and rhythm. S1, S2 normal. ABDOMEN: Soft, nontender, nondistended. MUSCULOSKELETAL: No C/C/E. NEUROLOGIC: The patient moves all extremities spontaneously. SKIN: Moist. PSYCHIATRIC: The patient is alert, awake, and follow commands. LABORATORY DATA: WBC 14.5, hemoglobin 13, platelet count 106. Sodium 131, potassium 3.7, chloride 99, carbon dioxide 23, BUN 29, creatinine 4.5 (patient is on hemodialysis), albumin 2. Procalcitonin 2.89 as of 2 days ago). MEDICATIONS: Hyperoncotic albumin every 1 hour as per GI service order, Ativan p.r.n., heparin drip, norepinephrine drip, meropenem, midodrine 10 mg p.o. q. 12 , hydrocortisone 50 mg IV q. 6, vasopressin drip. Upper extremity ultrasound yesterday revealed subacute thrombus in the left internal jugular vein. Chest x-ray showed status post chest tube placement, right pleural space. Chest tube is in satisfactory position, no appreciable right pleural effusion, no active pulmonary disease. Infiltrates in the right lung; however, worsening of left lung infiltrates, progressive infiltrate left upper lobe. ASSESSMENT AND PLAN: This is a 50-year-old gentleman with severe sepsis secondary to spontaneous bacterial peritonitis. He is on broad-spectrum antibiotics and appears to be improving. He passed pressure support trial and will be extubated after dialysis. At present time, dialysis is ongoing. Despite high vasopressor support, the patient appears very comfortable and mentating very well. His lactate as of yesterday 1.2. At present time, we will scan with ultrasound his left lung and if significant amount of fluid in the left side is present, we might consider to tap it if unable to extubate. I will follow the patient also clinically to see if invasive intervention like this would be needed to improve the patient's respiratory status. I will follow on procalcitonin level. We will continue with gastrointestinal prophylaxis. We will continue continuous therapeutic anticoagulation of acute deep venous thrombosis in the left upper extremity. We will continue to maintain euvolemia, euglycemia, normothermia and oxygen saturation more than 90% . Despite high vasopressor support, the patient does not appear to have end- organ dysfunction with lactic acid 1.2, with patient being very comfortable, mentating well. Unfortunately, we cannot assess renal perfusion as patient is on dialysis and has end-stage renal disease. Patient was extubated to BPAP. comfirtable is doing well. Will switch to high flow 02 ccm time 40 min Gabriel Johns MD cc: [id number] TT: 04/23/2016 14:11:14 Confirmation # [id number] Dictation # [id number] tn MTDD
[2016-04-23] MEDS: metroNIDAZOLE IV 500 mg/100 ml 100 ML IVPB SCH ×2 (17:00→22:22)
[2016-04-23] MEDS: Vancomycin 25 MG/ML PO SCH ×2 (17:48→22:24)
[2016-04-23] MEDS: Morphine 2 mg/ml ISec IVP PRN (22:36)
[2016-04-24] MEDS: metroNIDAZOLE IV 500 mg/100 ml 100 ML IVPB SCH ×3 (05:47→21:47)
[2016-04-24 06:02] LABS: ADD MANUAL DIFF? NO
[2016-04-24 06:15] LABS: ALB/GLOB RATIO 1.1 (1.1-1.8); BILIRUBIN,TOTAL 1.6 mg/dL (0.2-1.3); CALCIUM 7.2 mg/dL (8.4-10.5); POTASSIUM 3.8 mmol/L (3.6-5.0); TOTAL PROTEIN 4.4 g/dL (5.8-8.3)
[2016-04-24 06:17] LABS: BASO # 0.01 K/mm3 (0.0-2.0); BASO % 0.1 % (0.0-3.0); GRAN # 12.84 (1.4-6.5); GRAN % 86.7 % (50.0-68.0); HEMATOCRIT 38.3 % (42.0-52.0); LYMPH # 0.6 (1.2-3.4); LYMPH % 4.3 % (22.0-35.0); MEAN CELL VOLUME 88.9 fL (80.0-105.0); MEAN CORPUSCULAR HEMOGLOBIN 29.5 pg (25.0-35.0); MEAN CORPUSCULAR HGB CONC 33.2 g/dl (31.0-37.0); MEAN PLATELET VOLUME 11.8 fl (7.0-11.0); MONO # 1.3 (0.1-0.6); MONO % 8.9 % (1.0-6.0); PLATELET COUNT 86 10^3/uL (120.0-450.0); RED CELL DISTRIBUTION WIDTH 15.5 % (11.5-14.5); WHITE BLOOD COUNT 14.8 10^3/ul (4.5-11.0)
[2016-04-24] MEDS: Morphine 2 mg/ml ISec IVP PRN ×4 (06:37→20:12)
[2016-04-24 07:07] LABS: INR 1.55 (0.93-1.08); PARTIAL THROMBOPLASTIN TIME 49.7 Seconds (23.7-30.8)
[2016-04-24] MEDS: Albuterol-Ipratrop 3 mg / 0.5 (3 ml) UD IH PRN (07:38)
--- NOTE | 2016-04-24 09:13 | CP.PCM.PN ---
<MichelleKaran - Last Filed: 04/24/16 09:13> Subjective - Date & Time of Evaluation Date of Evaluation: 04/24/16 Time of Evaluation: 07:05 - Subjective Subjective: PGY4 GI Fellow Progress Note Patient seen and examined bedside this morning. The patient is much more alert and conversant today. He was successfully extubated yesterday. Complains of multiple loose BMs this AM (3 episodes thusfar). Denies any fever, chills, n/v. Does not clearly recall the events that led him to become hospitalized. 12 system ROS performed and negative except where stated. Objective - Vital Signs/Intake and Output Vital Signs (last 24 hours): Temp Pulse Resp BP Pulse Ox 97.5 F L 72 22 107/66 89 L 04/24/16 00:00 04/24/16 01:15 04/24/16 03:11 04/24/16 06:10 04/24/16 01:15 Intake and Output: 04/24/16 04/24/16 06:59 18:59 Intake Total Output Total Balance - Medications Medications: Current Medications Albumin Human (Albumin Human 25% (12.5 Gm/50 Ml)) 12.5 gm IV Q1H SIMON Stop: 04/25/16 13:01 Albuterol/Ipratropium (Duoneb 3 Mg/0.5 Mg (3 Ml) Ud) 3 ml IH [id number] PRN PRN Reason: Shortness of Breath Last Admin: 04/24/16 07:38 Dose: 3 ml Calcium Acetate (Phoslo) 667 mg PO WM SIMON Last Admin: 04/23/16 17:32 Dose: Not Given Hydrocortisone Sodium Succinate (Solu-Cortef) 50 mg IVP Q6H SIMON Last Admin: 04/24/16 05:46 Dose: 50 mg Propofol (Diprivan) 100 mls @ 2.36 mls/hr IV .Q24H PRN; Protocol; 5 MCG/KG/MIN PRN Reason: TITRATE PER MD ORDER Last Titration: 04/21/16 08:25 Dose: 0 mcg/kg/min Meropenem 500 mg/ Sodium (Chloride) 100 mls @ 100 mls/hr IVPB Q12 SIMON PRN Reason: Protocol Stop: 04/28/16 10:01 Last Admin: 04/23/16 22:23 Dose: 100 mls/hr Vasopressin 20 units/ Sodium (Chloride) 101 mls @ 9.09 mls/hr IV .Q11H7M SIMON; 0.03 U/MIN PRN Reason: Protocol Last Admin: 04/24/16 06:10 Dose: 9.09 mls/hr Heparin Sodium/Sodium Chloride (Heparin 55044 Units/250ml 1/2 Normal Saline) 250 mls @ 14.158 mls/hr IV .[id number] PRN; Protocol; 18 UNITS/KG/HR PRN Reason: ADJUST RATE PER PROTOCOL Last Titration: 04/24/16 00:21 Dose: 13 units/kg/hr Norepinephrine Bitartrate 16 (mg/ Dextrose) 1,016 mls @ 95.25 mls/hr IV .[id number] PRN; Protocol; 25 MCG/MIN PRN Reason: TITRATE PER MD ORDER Last Titration: 04/23/16 18:15 Dose: 18 mcg/min Metronidazole (Flagyl) 100 mls @ 100 mls/hr IVPB Q8 SIMON PRN Reason: Protocol Last Admin: 04/24/16 05:47 Dose: 100 mls/hr Lactulose (Enulose) 20 gm PO BID [facility] Last Admin: 04/23/16 17:48 Dose: 20 gm Lorazepam (Ativan) 2 mg IVP Q2H PRN; Protocol PRN Reason: Agitation Last Admin: 04/21/16 14:03 Dose: 2 mg Midodrine (Proamatine) 10 mg PO Q12H [facility] Last Admin: 04/23/16 22:23 Dose: 10 mg Morphine Sulfate (Morphine) 2 mg IVP Q4H PRN PRN Reason: Pain, moderate (4-7) Last Admin: 04/24/16 06:37 Dose: 2 mg Pantoprazole Sodium (Protonix Inj) 40 mg IVP DAILY [facility] Last Admin: 04/23/16 13:23 Dose: 40 mg Vancomycin HCl (Vancocin 25 Mg/Ml (Oral Use)) 125 mg PO QID SIMON PRN Reason: Protocol Last Admin: 04/23/16 22:24 Dose: 125 mg - Labs Labs: 04/24/16 05:55 04/24/16 05:55 PT 16.7 Seconds (9.9-11.8) H 04/24/16 06:30 INR 1.55 (0.93-1.08) H 04/24/16 06:30 APTT 49.7 Seconds (23.7-30.8) H 04/24/16 06:30 - Constitutional Appears: No Acute Distress, Chronically Ill - Eye Exam Eye Exam: EOMI, PERRL - ENT Exam ENT Exam: Mucous Membranes Dry - Respiratory Exam Respiratory Exam: Rhonchi. absent: Rales, Wheezes - Cardiovascular Exam Cardiovascular Exam: RRR, +S1, +S2 - GI/Abdominal Exam GI & Abdominal Exam: Soft, Normal Bowel Sounds. absent: Distended, Firm, Guarding, Rigid, Tenderness, Organomegaly - Extremities Exam Extremities Exam: Pedal Edema Additional comments: B/L LE discoloration of skin, chronic - Neurological Exam Neurological Exam: Alert, Awake, Oriented x3 - Psychiatric Exam Psychiatric exam: Normal Affect, Normal Mood - Skin Skin Exam: Dry, Warm Assessment and Plan - Assessment and Plan (Free Text) Assessment: 50yo male with history of CAD s/p CABG, chronic Hepatitis C, ESRD on hemodialysis (//Mon), polysubstance abuse admitted to ICU with altered mental status. Currently in septic shock likely secondary to aspriation pneumonia. -HCV decompensated cirrhosis -Spontaneous bacterial peritonitis -Pneumonia, Klebsiella ESBL -C diff infection -ESRD on hemodialysis -CAD/CABG -Polysubstance abuse Plan: -Decrease lactulose to PO QD -Continue IV Flagyl/Merrem/PO Vancomycin, ID following -Albumin to be administered tomorrow at 1gm/kg given SBP -Encourage PO intake as tolerated -HD as scheduled <Ezekiel Quiroz - Last Filed: 04/24/16 10:44> Objective - Vital Signs/Intake and Output Vital Signs (last 24 hours): Temp Pulse Resp BP Pulse Ox 97.5 F L 70 20 106/66 91 L 04/24/16 10:36 04/24/16 10:36 04/24/16 10:36 04/24/16 10:36 04/24/16 10:36 Intake and Output: 04/24/16 04/24/16 06:59 18:59 Intake Total Output Total Balance - Medications Medications: Current Medications Albumin Human (Albumin Human 25% (12.5 Gm/50 Ml)) 12.5 gm IV Q1H SIMON Stop: 04/25/16 13:01 Albuterol/Ipratropium (Duoneb 3 Mg/0.5 Mg (3 Ml) Ud) 3 ml IH [id number] PRN PRN Reason: Shortness of Breath Last Admin: 04/24/16 07:38 Dose: 3 ml Calcium Acetate (Phoslo) 667 mg PO WM SIMON Last Admin: 04/23/16 17:32 Dose: Not Given Hydrocortisone Sodium Succinate (Solu-Cortef) 50 mg IVP Q6H SIMON Last Admin: 04/24/16 05:46 Dose: 50 mg Propofol (Diprivan) 100 mls @ 2.36 mls/hr IV .Q24H PRN; Protocol; 5 MCG/KG/MIN PRN Reason: TITRATE PER MD ORDER Last Titration: 04/21/16 08:25 Dose: 0 mcg/kg/min Meropenem 500 mg/ Sodium (Chloride) 100 mls @ 100 mls/hr IVPB Q12 SIMON PRN Reason: Protocol Stop: 04/28/16 10:01 Last Admin: 04/23/16 22:23 Dose: 100 mls/hr Vasopressin 20 units/ Sodium (Chloride) 101 mls @ 9.09 mls/hr IV .Q11H7M SIMON; 0.03 U/MIN PRN Reason: Protocol Last Admin: 04/24/16 06:10 Dose: 9.09 mls/hr Heparin Sodium/Sodium Chloride (Heparin 10969 Units/250ml 1/2 Normal Saline) 250 mls @ 14.158 mls/hr IV .[id number] PRN; Protocol; 18 UNITS/KG/HR PRN Reason: ADJUST RATE PER PROTOCOL Last Titration: 04/24/16 00:21 Dose: 13 units/kg/hr Norepinephrine Bitartrate 16 (mg/ Dextrose) 1,016 mls @ 95.25 mls/hr IV .[id number] PRN; Protocol; 25 MCG/MIN PRN Reason: TITRATE PER MD ORDER Last Titration: 04/23/16 18:15 Dose: 18 mcg/min Metronidazole (Flagyl) 100 mls @ 100 mls/hr IVPB Q8 SIMON PRN Reason: Protocol Last Admin: 04/24/16 05:47 Dose: 100 mls/hr Lactulose (Enulose) 20 gm PO DAILY SIMON Lorazepam (Ativan) 2 mg IVP Q2H PRN; Protocol PRN Reason: Agitation Last Admin: 04/21/16 14:03 Dose: 2 mg Midodrine (Proamatine) 10 mg PO Q12H [facility] Last Admin: 04/23/16 22:23 Dose: 10 mg Morphine Sulfate (Morphine) 2 mg IVP Q4H PRN PRN Reason: Pain, moderate (4-7) Last Admin: 04/24/16 06:37 Dose: 2 mg Pantoprazole Sodium (Protonix Inj) 40 mg IVP DAILY [facility] Last Admin: 04/23/16 13:23 Dose: 40 mg Vancomycin HCl (Vancocin 25 Mg/Ml (Oral Use)) 125 mg PO QID SIMON PRN Reason: Protocol Last Admin: 04/23/16 22:24 Dose: 125 mg - Labs Labs: 04/24/16 05:55 04/24/16 05:55 PT 16.7 Seconds (9.9-11.8) H 04/24/16 06:30 INR 1.55 (0.93-1.08) H 04/24/16 06:30 APTT 49.7 Seconds (23.7-30.8) H 04/24/16 06:30 Attending/Attestation - Attestation I have personally seen and examined this patient.: Yes I have fully participated in the care of the patient.: Yes I have reviewed all pertinent clinical information, including history, physical exam and plan: Yes Notes (Text): 04/24/16 10:43 50 year old male with h/o CAD s/p CABG, chronic hepatitis C, ESRD on HD, polysubstance abuse including current heroin use admitted with altered mental status. 1. Altered mental status 2. Ascites 3. SBP 4. Chronic hepatitis C 5. Clostridium difficile diarrhea Plan: -no definite diagnosis of cirrhosis on imaging, but he does have thrombocytopenia, chronic hepatitis c, prior history of EtOH abuse, and high SAAG ascites in the past -has severe pneumonia and sepsis, intubated, on pressor support, critically ill -pressors are being weaned -he has SBP -he is on antibiotics and albumin -extubated and starting to eat -continue lactulose and rifaxamin -recommend broad spectrum IV antibiotics -supportive care
[2016-04-24] MEDS: Meropenem 500 MG in Sodium Chloride 0.9% 100 ML IVPB SCH ×2 (11:10→22:49)
[2016-04-24] MEDS: Vancomycin 25 MG/ML PO SCH ×4 (11:10→22:16)
[2016-04-24] MEDS: Heparin25000 units/250ml 1/2NS 250 ML IV PRN (11:28)
--- NOTE | 2016-04-24 11:32 | CP.PCM.PN ---
Subjective - Date & Time of Evaluation Date of Evaluation: 04/24/16 Time of Evaluation: 08:16 - Subjective Subjective: General Surgery Progress note for Dr. ballesteros This 50M was seen and examined this AM at bedside. Nurse reports no acute events overnight. He denies significant pain. CT has no air leaks 400cc/24hrs. Denies fevers, chills, chest pain, SOB, nausea, vomiting, diarrhea. Objective - Vital Signs/Intake and Output Vital Signs (last 24 hours): Temp Pulse Resp BP Pulse Ox 97.5 F L 70 20 106/66 91 L 04/24/16 10:36 04/24/16 10:36 04/24/16 10:36 04/24/16 10:36 04/24/16 10:36 Intake and Output: 04/24/16 04/24/16 06:59 18:59 Intake Total Output Total Balance - Medications Medications: Current Medications Albumin Human (Albumin Human 25% (12.5 Gm/50 Ml)) 12.5 gm IV Q1H SIMON Stop: 04/25/16 13:01 Albuterol/Ipratropium (Duoneb 3 Mg/0.5 Mg (3 Ml) Ud) 3 ml IH [id number] PRN PRN Reason: Shortness of Breath Last Admin: 04/24/16 07:38 Dose: 3 ml Calcium Acetate (Phoslo) 667 mg PO WM SIMON Last Admin: 04/23/16 17:32 Dose: Not Given Hydrocortisone Sodium Succinate (Solu-Cortef) 50 mg IVP Q6H SIMON Last Admin: 04/24/16 05:46 Dose: 50 mg Propofol (Diprivan) 100 mls @ 2.36 mls/hr IV .Q24H PRN; Protocol; 5 MCG/KG/MIN PRN Reason: TITRATE PER MD ORDER Last Titration: 04/21/16 08:25 Dose: 0 mcg/kg/min Meropenem 500 mg/ Sodium (Chloride) 100 mls @ 100 mls/hr IVPB Q12 SIMON PRN Reason: Protocol Stop: 04/28/16 10:01 Last Admin: 04/23/16 22:23 Dose: 100 mls/hr Vasopressin 20 units/ Sodium (Chloride) 101 mls @ 9.09 mls/hr IV .[id number] SIMON; 0.03 U/MIN PRN Reason: Protocol Last Admin: 04/24/16 06:10 Dose: 9.09 mls/hr Heparin Sodium/Sodium Chloride (Heparin 64196 Units/250ml 1/2 Normal Saline) 250 mls @ 14.158 mls/hr IV .[id number] PRN; Protocol; 18 UNITS/KG/HR PRN Reason: ADJUST RATE PER PROTOCOL Last Titration: 04/24/16 00:21 Dose: 13 units/kg/hr Norepinephrine Bitartrate 16 (mg/ Dextrose) 1,016 mls @ 95.25 mls/hr IV .[id number] PRN; Protocol; 25 MCG/MIN PRN Reason: TITRATE PER MD ORDER Last Titration: 04/23/16 18:15 Dose: 18 mcg/min Metronidazole (Flagyl) 100 mls @ 100 mls/hr IVPB Q8 SIMON PRN Reason: Protocol Last Admin: 04/24/16 05:47 Dose: 100 mls/hr Lactulose (Enulose) 20 gm PO DAILY [facility] Lorazepam (Ativan) 2 mg IVP Q2H PRN; Protocol PRN Reason: Agitation Last Admin: 04/21/16 14:03 Dose: 2 mg Midodrine (Proamatine) 10 mg PO Q12H [facility] Last Admin: 04/23/16 22:23 Dose: 10 mg Morphine Sulfate (Morphine) 2 mg IVP Q4H PRN PRN Reason: Pain, moderate (4-7) Last Admin: 04/24/16 06:37 Dose: 2 mg Pantoprazole Sodium (Protonix Inj) 40 mg IVP DAILY [facility] Last Admin: 04/23/16 13:23 Dose: 40 mg Vancomycin HCl (Vancocin 25 Mg/Ml (Oral Use)) 125 mg PO QID SIMON PRN Reason: Protocol Last Admin: 04/23/16 22:24 Dose: 125 mg - Labs Labs: 04/24/16 05:55 04/24/16 05:55 PT 16.7 Seconds (9.9-11.8) H 04/24/16 06:30 INR 1.55 (0.93-1.08) H 04/24/16 06:30 APTT 49.7 Seconds (23.7-30.8) H 04/24/16 06:30 - Constitutional Appears: Non-toxic - Head Exam Head Exam: ATRAUMATIC, NORMAL INSPECTION, NORMOCEPHALIC - Eye Exam Eye Exam: EOMI, Normal appearance, PERRL Pupil Exam: NORMAL ACCOMODATION, PERRL - ENT Exam ENT Exam: Mucous Membranes Moist, Normal Exam - Neck Exam Neck Exam: Full ROM, Normal Inspection. absent: Lymphadenopathy - Respiratory Exam Respiratory Exam: Normal breathing pattern - Cardiovascular Exam Cardiovascular Exam: REGULAR RHYTHM, +S1, +S2 - GI/Abdominal Exam GI & Abdominal Exam: Soft. absent: Distended - Extremities Exam Extremities Exam: Normal Inspection - Back Exam Back Exam: NORMAL INSPECTION - Neurological Exam Neurological Exam: Awake - Skin Skin Exam: Dry, Intact, Normal Color, Warm Assessment and Plan - Assessment and Plan (Free Text) Assessment: 50M with respiratory failure and pleural effusions, s/p right chest tube placement POD#3, CXR shows improvement Plan: - Monitor dressing, chest tube placement - daily CXR, monitor chest tube output - Monitor A-line site - D/W Dr. Sebastián Cummings PGY-1
--- NOTE | 2016-04-24 13:07 | RAD ---
HISTORY: Follow-up. Technique: Single view portable semi erect @ 07:55. COMPARISON: Multiple serial examinations preceding the most recent study: April 23, 2016. FINDINGS: LUNGS: Worsening infiltrates bilaterally. PLEURA: Chest tube in stable satisfactory position right pleural space. No significant pneumothorax identified. Stable pleural effusions. No significant pleural effusion identified, no pneumothorax apparent. CARDIOVASCULAR: No radiographic findings to suggest acute or significant cardiovascular disease. Venous access catheter in stable, satisfactory position. OSSEOUS STRUCTURES: No significant abnormalities. VISUALIZED UPPER ABDOMEN: Normal. OTHER FINDINGS: None. IMPRESSION: Worsening bilateral infiltrates. Stable position of support apparatus including chest tube in the right pleural space and dialysis catheter. Removal of support apparatus since the prior study: The patient has been extubated and the nasogastric tube removed.
--- NOTE | 2016-04-24 13:22 | PN ---
DATE: 04/24/2016 The patient is in bed, in no acute distress, nontoxic, was seen earlier today in CCU 129, bed 2. He appears to be much comfortable and he was seen early. He has had no fevers. He is now extubated. VITAL SIGNS: The temperature is 97. The patient had a chest x-ray today this morning and results are pending. LABORATORY EXAMINATION: Reveals the patient's white count of 14,000, hemoglobin of 12, platelets of 86. Review of the medications reveals the patient to be on Flagyl and p.o. vancomycin and meropenem. ASSESSMENT AND PLAN: A 50-year-old male, seen early this morning in the CCU 129, bed 4 with septic s hock, multiorgan dysfunction syndrome, acute toxic metabolic encephalopathy, chronic renal failure an d hypoxic, ventilatory dependent respiratory failure, now extubated, comfortable with a probable righ t-sided healthcare-associated pneumonia, possible gram-positive cocci, possible gram-negative juana wit h a pleural effusion, status post chest tube placement, post procedure day #3, possible overdose of h eroin in a patient with a subacute thrombus in the left internal jugular vein. Culture is negative s o far, on IV meropenem in a patient with status post coronary bypass graft and end-stage renal diseas e on hemodialysis, history of lymphadenopathy, was also given intermittent IV vancomycin and with a s tool Clostridium difficile from yesterday was positive antigen, but negative toxin. Currently on IV Flagyl and p.o. vancomycin in addition to IV meropenem. We will follow closely with you. The patien t is also on Solu-Cortef, which may explain the persistent leukocytosis. Krystian Young MD cc: [phone] TT: 04/24/2016 13:21:16 Confirmation # [id number] Dictation # [id number] en
--- NOTE | 2016-04-24 13:37 | PN ---
DATE: 04/24/2016 The patient seen and examined at bedside. He is comfortable. He is sitting in the chair. He is enjoying his lunch. FiO2 down to 60% with 02sat 89-92. The patient is on 10 mcg per minute of Levophed and his blood pressure varies between 90 and 105 systolic with mean arterial pressure more than 65. The patient is mentating well, alert and oriented x 3, comfortable, not in respiratory or otherwise distress. No chest pain. The patient has end-stage renal disease/on HD Lactic acid level normalized, however. Thus, I will tolerate MAP level based on patient mentation, absence of lactic acidosis, absence of chest pain. PHYSICAL EXAMINATION: HEAD AND NECK: Atraumatic. LUNGS: Few crackles bibasilarly. HEART: Regular rate and rhythm. S1, S2 distant. ABDOMEN: Soft, nontender, nondistended. MUSCULOSKELETAL: No C/C/E. NEUROLOGIC: The patient moves all extremities spontaneously. SKIN: Moist. PSYCHIATRIC: The patient is alert and oriented x 3. LABORATORY DATA: WBC 14.8, hemoglobin 12.7, platelet count 86. Sodium 132, potassium 3.8, chloride 97, BUN 23, creatinine 2.4, glucose 134. MEDICATIONS: Albumin every 1 hour, Ativan p.r.n., DuoNeb p.r.n., lactulose, Flagyl, heparin drip, norepinephrine at 10 mcg per minute, meropenem, PhosLo, midodrine 10 mg q. 12, Protonix daily, hydrocortisone 50 mg IV q. 6, vasopressin 0.03 units per minute. ASSESSMENT AND PLAN: This is a 50-year-old gentleman who is recovering from septic shock secondary to SBP, HAP with ESBL Klebsiella, and/or C.diff colitis ( Ag positive/toxins negative/+diarrhea). Patient is on Meropenem, Vanco PO and Flagyl IV. Despite being on NE 15 (now 10) mcg/min, vaso 0.03 and midodrine PO, patient surprisingly looks well clinically--comfortably sitting in the chiar, eating his meal, watching TV. His A-line measurements failry concordant with non -invasive BP measurement. Despite high flow 60/60 and 02sat fluctuating at high 80s/low 90s patient is not in respiratory distress, talks full sentences, doesnt use accessory muscles to breath. We will continue with IHD, I will also give him a trial of dobutamine as patient has severe portopulmonary hypertension. Of note patient is on TAC with heparin for LUE DVT, thus even if PE present it would be treated anyway. I did thoracal ultrasound of the left lung---predominantly consolidation (and small pleural effusion, unlikely safely tapable at bedside). Of note L.chest tube drained about 200 cc over last 10 hrs. (serous fluid). He is getting albumin supplementation ccm time 40 min Gabriel Johns MD cc: [id number] TT: 04/24/2016 13:36:55 Confirmation # [id number] Dictation # [id number] lobo MEDINA
--- NOTE | 2016-04-24 14:54 | CP.PCM.PN ---
<Ezequiel Cota - Last Filed: 04/24/16 14:51> Subjective - Date & Time of Evaluation Date of Evaluation: 04/24/16 Time of Evaluation: 11:00 - Subjective Subjective: Pt was seen and examined at bedside. No acute events overnight as per nursing staff. No acute complaints at this time. Pt noted that he has been experiencing more loose stools. He was successfully extubated yesterday. Pt remains on pressor support. He has chest tube in place. He is awake and alert and mentating well. He denied fever, chills, sob, chest pains, abdominal pains, n/v/ c or urinary symptoms. Objective - Vital Signs/Intake and Output Vital Signs (last 24 hours): Temp Pulse Resp BP Pulse Ox 97.5 F L 70 20 106/66 91 L 04/24/16 10:36 04/24/16 10:36 04/24/16 10:36 04/24/16 10:36 04/24/16 10:36 Intake and Output: 04/24/16 04/24/16 06:59 18:59 Intake Total Output Total Balance - Medications Medications: Current Medications Albumin Human (Albumin Human 25% (12.5 Gm/50 Ml)) 12.5 gm IV Q1H SIMON Stop: 04/25/16 13:01 Albuterol/Ipratropium (Duoneb 3 Mg/0.5 Mg (3 Ml) Ud) 3 ml IH [id number] PRN PRN Reason: Shortness of Breath Last Admin: 04/24/16 07:38 Dose: 3 ml Calcium Acetate (Phoslo) 667 mg PO WM SIMON Last Admin: 04/24/16 09:05 Dose: 667 mg Hydrocortisone Sodium Succinate (Solu-Cortef) 50 mg IVP Q6H SIMON Last Admin: 04/24/16 09:40 Dose: 50 mg Propofol (Diprivan) 100 mls @ 2.36 mls/hr IV .Q24H PRN; Protocol; 5 MCG/KG/MIN PRN Reason: TITRATE PER MD ORDER Last Titration: 04/21/16 08:25 Dose: 0 mcg/kg/min Meropenem 500 mg/ Sodium (Chloride) 100 mls @ 100 mls/hr IVPB Q12 SIMON PRN Reason: Protocol Stop: 04/28/16 10:01 Last Admin: 04/24/16 11:10 Dose: 100 mls/hr Vasopressin 20 units/ Sodium (Chloride) 101 mls @ 9.09 mls/hr IV .Q11H7M SIMON; 0.03 U/MIN PRN Reason: Protocol Last Admin: 04/24/16 06:10 Dose: 9.09 mls/hr Heparin Sodium/Sodium Chloride (Heparin 15294 Units/250ml 1/2 Normal Saline) 250 mls @ 14.158 mls/hr IV .[id number] PRN; Protocol; 18 UNITS/KG/HR PRN Reason: ADJUST RATE PER PROTOCOL Last Admin: 04/24/16 11:28 Dose: 10.225 mls/hr Norepinephrine Bitartrate 16 (mg/ Dextrose) 1,016 mls @ 95.25 mls/hr IV .[id number] PRN; Protocol; 25 MCG/MIN PRN Reason: TITRATE PER MD ORDER Last Titration: 04/23/16 18:15 Dose: 18 mcg/min Metronidazole (Flagyl) 100 mls @ 100 mls/hr IVPB Q8 SIMON PRN Reason: Protocol Last Admin: 04/24/16 05:47 Dose: 100 mls/hr Lactulose (Enulose) 20 gm PO DAILY [facility] Last Admin: 04/24/16 11:08 Dose: 20 gm Lorazepam (Ativan) 2 mg IVP Q2H PRN; Protocol PRN Reason: Agitation Last Admin: 04/21/16 14:03 Dose: 2 mg Midodrine (Proamatine) 10 mg PO Q12H SIMON Last Admin: 04/24/16 11:08 Dose: 10 mg Morphine Sulfate (Morphine) 2 mg IVP Q4H PRN PRN Reason: Pain, moderate (4-7) Last Admin: 04/24/16 11:12 Dose: 2 mg Pantoprazole Sodium (Protonix Inj) 40 mg IVP DAILY [facility]ON Last Admin: 04/24/16 11:09 Dose: 40 mg Vancomycin HCl (Vancocin 25 Mg/Ml (Oral Use)) 125 mg PO QID SIMON PRN Reason: Protocol Last Admin: 04/24/16 11:10 Dose: 125 mg - Labs Labs: 04/24/16 05:55 04/24/16 05:55 PT 16.7 Seconds (9.9-11.8) H 04/24/16 06:30 INR 1.55 (0.93-1.08) H 04/24/16 06:30 APTT 53.9 Seconds (23.7-30.8) H 04/24/16 13:00 - Constitutional Appears: Non-toxic, No Acute Distress - Head Exam Head Exam: ATRAUMATIC, NORMAL INSPECTION, NORMOCEPHALIC - Eye Exam Eye Exam: EOMI, Normal appearance, PERRL - ENT Exam ENT Exam: Mucous Membranes Moist, Normal Exam - Neck Exam Neck Exam: Full ROM, Normal Inspection. absent: Lymphadenopathy - Respiratory Exam Respiratory Exam: Decreased Breath Sounds, Clear to Ausculation Bilateral, Rhonchi, NORMAL BREATHING PATTERN - Cardiovascular Exam Cardiovascular Exam: RRR, +S1, +S2 - GI/Abdominal Exam GI & Abdominal Exam: Soft, Normal Bowel Sounds. absent: Tenderness - Extremities Exam Extremities Exam: Normal Capillary Refill, Normal Inspection. absent: Joint Swelling, Pedal Edema - Neurological Exam Neurological Exam: Alert, Awake, CN II-XII Intact, Normal Gait, Oriented x3 - Psychiatric Exam Psychiatric exam: Normal Affect, Normal Mood - Skin Skin Exam: Dry, Intact, Normal Color, Warm Assessment and Plan - Assessment and Plan (Free Text) Assessment: 50 yo male with PMH of ESRD on HD (T,TH,S) cirrhosis, hep C, alcohol abuse, and h/o cocaine and heroin use presented with hypoxemic respiratory failure and septic shock secondary to SBP and aspiration pna - found to have klebsiella pna in sputum. Currently he is intubated on levophed, phenylephrine and vasopresson. Surgery placed a chest tube on right side. Right femoral central line placed. Surgery consulted and a chest tube was placed. HD was completed today. Pt remains on pressor support and now has been sucessfully extubated. Will attempt to wean off pressors. As per GI, Decrease lactulose to PO QD, Continue IV Flagyl/Merrem/PO Vancomycin, as per ID. Albumin 1gm/kg SBP. Continue HD as scheduled and monitor chest tube output as well as daily CXR. Plan as per ICU team: Neuro - intially presented with AMS, now mentating well - pt is extubated to high flow, alert, and able to follow commands - will treat empirically for hepatic encephalopathy - cont to monitor cardio - hypotension - levophed and vasopresson - phenylephrine was stopped and dopamine was started - arterial line was placed - midodrine BID - echo should EF fo 50% with severe pulmonary HTN adn bioprosthesis valve - cont to monitor - maintain MAP>65 - cardiology following pulm - hypoxemic respiratory failure 2/2 aspiration PNE - CTA showed no PE, bilateral pleural effusions R>L - repeat cxr showed no pleural effusion or pneumothorax and small left sided effusion - Chest tube is on suction without air leaks and produced a total of 450cc of serosanganous fluid - surgery following - intubated on PRVC overnight, this morning spontaneous breathing trial - cont to monitor - aspiration precaution, HOB >35 GI - h/o hep c and ascites - abd US showed moderate ascites with mild hepatosplenomegaly and moderate bilateral pleural effusions - on lactulose and rifaxmine for empiric treatment for hepatic encephalopathy - titrate lactulose to 2-3 BM per day - paracentesis possible if tapable - GI following, IR following - advance diet as tolerated - Albumin 1gm/kg - protonix ppx Renal - ESRD on HD T,T,S - HD yesterday - nephro following, Dr. Gonzalez - monitor electrolytes, replace as needed endo - fingerstick q6h, cont to monitor glucose ID - septic shock 2/2 aspiration PNA, (+) Klebsiella pna - C Diff Ag (+) - afebrile with leukocytosis - cont vanco PO, flagyl - blood cx neg after 48 hours - repeat procalcitonin elevated - ID following, Dr. Millard <Rich RILEY,Luis - Last Filed: 04/24/16 17:23> Objective - Vital Signs/Intake and Output Vital Signs (last 24 hours): Temp Pulse Resp BP Pulse Ox 97.8 F 64 22 101/60 85 L 04/24/16 16:00 04/24/16 16:29 04/24/16 16:00 04/24/16 16:29 04/24/16 16:00 Intake and Output: 04/24/16 04/24/16 06:59 18:59 Intake Total Output Total Balance - Medications Medications: Current Medications Albumin Human (Albumin Human 25% (12.5 Gm/50 Ml)) 12.5 gm IV Q1H SIMON Stop: 04/25/16 13:01 Albuterol/Ipratropium (Duoneb 3 Mg/0.5 Mg (3 Ml) Ud) 3 ml IH [id number] PRN PRN Reason: Shortness of Breath Last Admin: 04/24/16 07:38 Dose: 3 ml Calcium Acetate (Phoslo) 667 mg PO WM SIMON Last Admin: 04/24/16 16:56 Dose: 667 mg Hydrocortisone Sodium Succinate (Solu-Cortef) 50 mg IVP Q6H SIMON Last Admin: 04/24/16 15:45 Dose: 50 mg Propofol (Diprivan) 100 mls @ 2.36 mls/hr IV .Q24H PRN; Protocol; 5 MCG/KG/MIN PRN Reason: TITRATE PER MD ORDER Last Titration: 04/21/16 08:25 Dose: 0 mcg/kg/min Meropenem 500 mg/ Sodium (Chloride) 100 mls @ 100 mls/hr IVPB Q12 SIMON PRN Reason: Protocol Stop: 04/28/16 10:01 Last Admin: 04/24/16 11:10 Dose: 100 mls/hr Vasopressin 20 units/ Sodium (Chloride) 101 mls @ 9.09 mls/hr IV .Q11H7M SIMON; 0.03 U/MIN PRN Reason: Protocol Last Admin: 04/24/16 16:29 Dose: 9.09 mls/hr Heparin Sodium/Sodium Chloride (Heparin 62040 Units/250ml 1/2 Normal Saline) 250 mls @ 14.158 mls/hr IV .[id number] PRN; Protocol; 18 UNITS/KG/HR PRN Reason: ADJUST RATE PER PROTOCOL Last Admin: 04/24/16 11:28 Dose: 10.225 mls/hr Norepinephrine Bitartrate 16 (mg/ Dextrose) 1,016 mls @ 95.25 mls/hr IV .[id number] PRN; Protocol; 25 MCG/MIN PRN Reason: TITRATE PER MD ORDER Last Titration: 04/23/16 18:15 Dose: 18 mcg/min Metronidazole (Flagyl) 100 mls @ 100 mls/hr IVPB Q8 SIMON PRN Reason: Protocol Last Admin: 04/24/16 15:45 Dose: 100 mls/hr Dobutamine HCl/Dextrose (Dobutamine/Dextrose 5% 500mg/250ml) 250 mls @ 6.017 mls/hr IV .Q24H PRN; Protocol; 2.5 MCG/KG/MIN PRN Reason: TITRATE PER PROTOCOL Last Admin: 04/24/16 16:57 Dose: 6.017 mls/hr Lactulose (Enulose) 20 gm PO DAILY [facility] Last Admin: 04/24/16 11:08 Dose: 20 gm Lorazepam (Ativan) 2 mg IVP Q2H PRN; Protocol PRN Reason: Agitation Last Admin: 04/21/16 14:03 Dose: 2 mg Midodrine (Proamatine) 10 mg PO Q12H [facility] Last Admin: 04/24/16 11:08 Dose: 10 mg Morphine Sulfate (Morphine) 2 mg IVP Q4H PRN PRN Reason: Pain, moderate (4-7) Last Admin: 04/24/16 16:04 Dose: 2 mg Pantoprazole Sodium (Protonix Inj) 40 mg IVP DAILY [facility] Last Admin: 04/24/16 11:09 Dose: 40 mg Vancomycin HCl (Vancocin 25 Mg/Ml (Oral Use)) 125 mg PO QID [facility] PRN Reason: Protocol Last Admin: 04/24/16 15:00 Dose: 125 mg - Labs Labs: 04/24/16 05:55 04/24/16 05:55 PT 16.7 Seconds (9.9-11.8) H 04/24/16 06:30 INR 1.55 (0.93-1.08) H 04/24/16 06:30 APTT 53.9 Seconds (23.7-30.8) H 04/24/16 13:00 Attending/Attestation - Attestation I have personally seen and examined this patient.: Yes I have fully participated in the care of the patient.: Yes I have reviewed all pertinent clinical information, including history, physical exam and plan: Yes Notes (Text): Patient was seen and examined with medical writer .Agreed with resident assessment and plan. 50 Yrs MALE with PMH of CAD, SP CABAG,alcohol abuse, Drug abuse, Chronic liver disease , ascites ESRD , was admitted with change of mental status, confusion, unresponsiveness, hypothermia and hypotension, on 04/19/16, found to have hypoxic Resp Failure due to Aspiration Pneumonia, bilateral Pleural effusion, was intubated in ICU, had right sided chest tube placement, extubated yesterday, on high flow oxygen, Sputum cultures are growing Kelebsiella.Blood cultures are negative for any growth so far. Blood pressure is low , on low dose of pressors, mental status is back to normal.Patient also has DVT of left IJV on Heparin drip, now also has Clostridium C diff colitis. GI/ID/Nephrology following. Management plan was discussed in detail with patient Education was provided. Prognosis is guarded.
[2016-04-24] MEDS: DOBUTamine 500mg/250ml D5W 250 ML IV PRN (16:57)
[2016-04-25] MEDS: Morphine 2 mg/ml ISec IVP PRN ×2 (01:20→06:07)
[2016-04-25 05:19] LABS: ADD MANUAL DIFF? NO
[2016-04-25] MEDS: metroNIDAZOLE IV 500 mg/100 ml 100 ML IVPB SCH ×3 (05:24→22:42)
[2016-04-25 05:36] LABS: GRAN # 7.75 (1.4-6.5); GRAN % 88.7 % (50.0-68.0); HEMATOCRIT 32.8 % (42.0-52.0); LYMPH # 0.4 (1.2-3.4); MEAN CELL VOLUME 87.5 fL (80.0-105.0); MEAN CORPUSCULAR HEMOGLOBIN 29.1 pg (25.0-35.0); MEAN CORPUSCULAR HGB CONC 33.2 g/dl (31.0-37.0); MEAN PLATELET VOLUME 10.7 fl (7.0-11.0); MONO # 0.6 (0.1-0.6); MONO % 7.3 % (1.0-6.0); RED CELL DISTRIBUTION WIDTH 15.5 % (11.5-14.5); WHITE BLOOD COUNT 8.7 10^3/ul (4.5-11.0)
[2016-04-25 05:43] LABS: ALB/GLOB RATIO 0.9 (1.1-1.8); POTASSIUM 3.7 mmol/L (3.6-5.0); TOTAL PROTEIN 3.7 g/dL (5.8-8.3)
[2016-04-25 06:03] LABS: CALCIUM 6.8 mg/dL (8.4-10.5)
[2016-04-25 06:42] LABS: PLATELET COUNT 47 10^3/uL (120.0-450.0)
--- NOTE | 2016-04-25 07:38 | CP.PCM.PN ---
<CrystallibbyleaKaran - Last Filed: 04/25/16 09:00> Subjective - Date & Time of Evaluation Date of Evaluation: 04/25/16 Time of Evaluation: 06:20 - Subjective Subjective: PGY4 GI Fellow Progress Note Patient seen and examined bedside this morning. The patient admits to some discomfort from central line in right groin and at chest tube insertion site in right thorax. Had 4 loose stool yesterday which is improved per patient. No fever, chills, abdominal pain. 12 system ROS performed and negative except where stated. Objective - Vital Signs/Intake and Output Vital Signs (last 24 hours): Temp Pulse Resp BP Pulse Ox 98.0 F 69 16 101/48 L 91 L 04/25/16 04:00 04/25/16 06:09 04/25/16 06:09 04/25/16 06:09 04/25/16 06:09 Intake and Output: 04/25/16 04/25/16 06:59 18:59 Intake Total 1212 Output Total 280 Balance 932 - Medications Medications: Current Medications Albumin Human (Albumin Human 25% (12.5 Gm/50 Ml)) 12.5 gm IV Q1H SIMON Stop: 04/25/16 13:01 Albuterol/Ipratropium (Duoneb 3 Mg/0.5 Mg (3 Ml) Ud) 3 ml IH [id number] PRN PRN Reason: Shortness of Breath Last Admin: 04/24/16 07:38 Dose: 3 ml Calcium Acetate (Phoslo) 667 mg PO WM SIMON Last Admin: 04/24/16 16:56 Dose: 667 mg Hydrocortisone Sodium Succinate (Solu-Cortef) 50 mg IVP Q6H SIMON Last Admin: 04/25/16 01:31 Dose: 50 mg Propofol (Diprivan) 100 mls @ 2.36 mls/hr IV .Q24H PRN; Protocol; 5 MCG/KG/MIN PRN Reason: TITRATE PER MD ORDER Last Titration: 04/21/16 08:25 Dose: 0 mcg/kg/min Meropenem 500 mg/ Sodium (Chloride) 100 mls @ 100 mls/hr IVPB Q12 SIMON PRN Reason: Protocol Stop: 04/28/16 10:01 Last Admin: 04/24/16 22:49 Dose: 100 mls/hr Vasopressin 20 units/ Sodium (Chloride) 101 mls @ 9.09 mls/hr IV .Q11H7M SIMON; 0.03 U/MIN PRN Reason: Protocol Last Admin: 04/25/16 06:52 Dose: 9.09 mls/hr Heparin Sodium/Sodium Chloride (Heparin 32819 Units/250ml 1/2 Normal Saline) 250 mls @ 14.158 mls/hr IV .[id number] PRN; Protocol; 18 UNITS/KG/HR PRN Reason: ADJUST RATE PER PROTOCOL Last Admin: 04/24/16 11:28 Dose: 10.225 mls/hr Norepinephrine Bitartrate 16 (mg/ Dextrose) 1,016 mls @ 95.25 mls/hr IV .[id number] PRN; Protocol; 25 MCG/MIN PRN Reason: TITRATE PER MD ORDER Last Titration: 04/25/16 03:45 Dose: 4 mcg/min Metronidazole (Flagyl) 100 mls @ 100 mls/hr IVPB Q8 SIMON PRN Reason: Protocol Last Admin: 04/25/16 05:24 Dose: 100 mls/hr Dobutamine HCl/Dextrose (Dobutamine/Dextrose 5% 500mg/250ml) 250 mls @ 6.017 mls/hr IV .Q24H PRN; Protocol; 2.5 MCG/KG/MIN PRN Reason: TITRATE PER PROTOCOL Last Admin: 04/24/16 16:57 Dose: 6.017 mls/hr Lactulose (Enulose) 20 gm PO DAILY [facility] Last Admin: 04/24/16 11:08 Dose: 20 gm Lorazepam (Ativan) 2 mg IVP Q2H PRN; Protocol PRN Reason: Agitation Last Admin: 04/21/16 14:03 Dose: 2 mg Midodrine (Proamatine) 10 mg PO Q12H [facility] Last Admin: 04/24/16 22:11 Dose: 10 mg Morphine Sulfate (Morphine) 2 mg IVP Q4H PRN PRN Reason: Pain, moderate (4-7) Last Admin: 04/25/16 06:07 Dose: 2 mg Pantoprazole Sodium (Protonix Inj) 40 mg IVP DAILY [facility] Last Admin: 04/24/16 11:09 Dose: 40 mg Vancomycin HCl (Vancocin 25 Mg/Ml (Oral Use)) 125 mg PO QID [facility] PRN Reason: Protocol Last Admin: 04/24/16 22:16 Dose: 125 mg - Labs Labs: 04/25/16 05:00 04/25/16 05:00 PT 16.7 Seconds (9.9-11.8) H 04/24/16 06:30 INR 1.55 (0.93-1.08) H 04/24/16 06:30 APTT 73.2 Seconds (23.7-30.8) H* 04/25/16 05:00 - Constitutional Appears: Non-toxic, No Acute Distress - Eye Exam Eye Exam: EOMI, PERRL - ENT Exam ENT Exam: Mucous Membranes Moist - Respiratory Exam Respiratory Exam: Rales (Right sided). absent: Clear to Ausculation Bilateral, Rhonchi, Wheezes - Cardiovascular Exam Cardiovascular Exam: RRR, +S1, +S2 - GI/Abdominal Exam GI & Abdominal Exam: Soft, Hernia (umbilical, reducible), Normal Bowel Sounds. absent: Distended, Firm, Guarding, Rigid, Tenderness, Organomegaly - Extremities Exam Extremities Exam: absent: Pedal Edema - Neurological Exam Neurological Exam: Alert, Awake, Oriented x3 - Psychiatric Exam Psychiatric exam: Normal Affect, Normal Mood - Skin Skin Exam: Dry, Warm Assessment and Plan - Assessment and Plan (Free Text) Assessment: 50yo male with history of CAD s/p CABG, chronic Hepatitis C, ESRD on hemodialysis (T/R/Sa), polysubstance abuse admitted to ICU with altered mental status. Currently in septic shock with multiple infectious etiologies. -Septic shock 2/2 Klebsiella pneumonia, SBP and C diff diarrhea -HCV decompensated cirrhosis with ascites -Spontaneous bacterial peritonitis -Pneumonia, Klebsiella ESBL -C diff infection -Left internal jugular vein DVT -ESRD on hemodialysis -CAD/CABG -Polysubstance abuse Plan: -Now on Levophed, Vasopressin, Dobutamine -Lactulose 20g PO QD -On broad spectrum ABX with IV Flagyl/Merrem/PO Vancomycin, ID following -Contact isolation for Klebsiella ESBL and C diff -Albumin to be administered @ 1gm/kg today -Encourage PO intake as tolerated -HD as scheduled <Dwayne Molina - Last Filed: 04/25/16 10:56> Objective - Vital Signs/Intake and Output Vital Signs (last 24 hours): Temp Pulse Resp BP Pulse Ox 98.0 F 69 16 101/48 L 91 L 04/25/16 04:00 04/25/16 06:09 04/25/16 06:09 04/25/16 06:09 04/25/16 06:09 Intake and Output: 04/25/16 04/25/16 06:59 18:59 Intake Total 1212 Output Total 280 Balance 932 - Medications Medications: Current Medications Albumin Human (Albumin Human 25% (12.5 Gm/50 Ml)) 12.5 gm IV Q1H SIMON Stop: 04/25/16 13:01 Last Admin: 04/25/16 09:52 Dose: 12.5 gm Albuterol/Ipratropium (Duoneb 3 Mg/0.5 Mg (3 Ml) Ud) 3 ml IH [id number] PRN PRN Reason: Shortness of Breath Last Admin: 04/24/16 07:38 Dose: 3 ml Calcium Acetate (Phoslo) 667 mg PO WM SIMON Last Admin: 04/25/16 08:06 Dose: 667 mg Hydrocortisone Sodium Succinate (Solu-Cortef) 50 mg IVP Q6H SIMON Last Admin: 04/25/16 08:06 Dose: 50 mg Propofol (Diprivan) 100 mls @ 2.36 mls/hr IV .Q24H PRN; Protocol; 5 MCG/KG/MIN PRN Reason: TITRATE PER MD ORDER Last Titration: 04/21/16 08:25 Dose: 0 mcg/kg/min Meropenem 500 mg/ Sodium (Chloride) 100 mls @ 100 mls/hr IVPB Q12 SIMON PRN Reason: Protocol Stop: 04/28/16 10:01 Last Admin: 04/24/16 22:49 Dose: 100 mls/hr Vasopressin 20 units/ Sodium (Chloride) 101 mls @ 9.09 mls/hr IV .Q11H7M SIMON; 0.03 U/MIN PRN Reason: Protocol Last Admin: 04/25/16 06:52 Dose: 9.09 mls/hr Heparin Sodium/Sodium Chloride (Heparin 26576 Units/250ml 1/2 Normal Saline) 250 mls @ 14.158 mls/hr IV .[id number] PRN; Protocol; 18 UNITS/KG/HR PRN Reason: ADJUST RATE PER PROTOCOL Last Admin: 04/24/16 11:28 Dose: 10.225 mls/hr Norepinephrine Bitartrate 16 (mg/ Dextrose) 1,016 mls @ 95.25 mls/hr IV .[id number] PRN; Protocol; 25 MCG/MIN PRN Reason: TITRATE PER MD ORDER Last Titration: 04/25/16 03:45 Dose: 4 mcg/min Metronidazole (Flagyl) 100 mls @ 100 mls/hr IVPB Q8 SIMON PRN Reason: Protocol Last Admin: 04/25/16 05:24 Dose: 100 mls/hr Dobutamine HCl/Dextrose (Dobutamine/Dextrose 5% 500mg/250ml) 250 mls @ 6.017 mls/hr IV .Q24H PRN; Protocol; 2.5 MCG/KG/MIN PRN Reason: TITRATE PER PROTOCOL Last Admin: 04/24/16 16:57 Dose: 6.017 mls/hr Lactulose (Enulose) 20 gm PO DAILY [facility] Last Admin: 04/24/16 11:08 Dose: 20 gm Lorazepam (Ativan) 2 mg IVP Q2H PRN; Protocol PRN Reason: Agitation Last Admin: 04/25/16 09:57 Dose: 2 mg Midodrine (Proamatine) 10 mg PO Q12H SIMON Last Admin: 04/24/16 22:11 Dose: 10 mg Pantoprazole Sodium (Protonix Inj) 40 mg IVP DAILY [facility] Last Admin: 04/24/16 11:09 Dose: 40 mg Vancomycin HCl (Vancocin 25 Mg/Ml (Oral Use)) 125 mg PO QID SIMON PRN Reason: Protocol Last Admin: 04/25/16 09:16 Dose: Not Given - Labs Labs: 04/25/16 05:00 04/25/16 05:00 PT 16.7 Seconds (9.9-11.8) H 04/24/16 06:30 INR 1.55 (0.93-1.08) H 04/24/16 06:30 APTT 73.2 Seconds (23.7-30.8) H* 04/25/16 05:00 Attending/Attestation - Attestation I have personally seen and examined this patient.: Yes I have fully participated in the care of the patient.: Yes I have reviewed all pertinent clinical information, including history, physical exam and plan: Yes Notes (Text): 04/25/16 10:51 I have seen and examined patient with GI fellow. Patient remains in ICU critical care requiring vasopressor support. However he is now extubated and seen sitting in bed eating breakfast and appears comfortable. He denies abdominal pain, nausea, vomiting, fever/chills. He is moderately confused, though able to participate in conversation appropriately. Review of vitals from today shows persistent hypotension. CAD/CABG HCV decompensated cirrhosis, + SBP ESRD on HD Septic shock with multiple sources including peritoneal ascites, c-difficile colitis, klebsiella pneumonia - Continue with antibiotic therapy as per ID, follow culture results - Patient to receive albumin therapy for SBP protocol day #3 - Vasopresor support and adjustment as per critical care team - Diet as tolerated - Continue with lactulose, titrate so that patient has 3 bowel movements daily - Will continue to monitor patient clinical course
--- NOTE | 2016-04-25 07:57 | CP.PCM.PN ---
Subjective - Date & Time of Evaluation Date of Evaluation: 04/25/16 Time of Evaluation: 07:39 - Subjective Subjective: SURGERY NOTE FOR DR. HENAO 50M seen and examined at bedside. Patient extubated, follows verbal, follow commands. Denies chest pain, shortness of breath. Objective - Vital Signs/Intake and Output Vital Signs (last 24 hours): Temp Pulse Resp BP Pulse Ox 98.0 F 69 16 101/48 L 91 L 04/25/16 04:00 04/25/16 06:09 04/25/16 06:09 04/25/16 06:09 04/25/16 06:09 Intake and Output: 04/25/16 04/25/16 06:59 18:59 Intake Total 1212 Output Total 280 Balance 932 - Medications Medications: Current Medications Albumin Human (Albumin Human 25% (12.5 Gm/50 Ml)) 12.5 gm IV Q1H SIMON Stop: 04/25/16 13:01 Albuterol/Ipratropium (Duoneb 3 Mg/0.5 Mg (3 Ml) Ud) 3 ml IH [id number] PRN PRN Reason: Shortness of Breath Last Admin: 04/24/16 07:38 Dose: 3 ml Calcium Acetate (Phoslo) 667 mg PO WM SIMON Last Admin: 04/24/16 16:56 Dose: 667 mg Hydrocortisone Sodium Succinate (Solu-Cortef) 50 mg IVP Q6H SIMON Last Admin: 04/25/16 01:31 Dose: 50 mg Propofol (Diprivan) 100 mls @ 2.36 mls/hr IV .Q24H PRN; Protocol; 5 MCG/KG/MIN PRN Reason: TITRATE PER MD ORDER Last Titration: 04/21/16 08:25 Dose: 0 mcg/kg/min Meropenem 500 mg/ Sodium (Chloride) 100 mls @ 100 mls/hr IVPB Q12 SIMON PRN Reason: Protocol Stop: 04/28/16 10:01 Last Admin: 04/24/16 22:49 Dose: 100 mls/hr Vasopressin 20 units/ Sodium (Chloride) 101 mls @ 9.09 mls/hr IV .Q11H7M SIMON; 0.03 U/MIN PRN Reason: Protocol Last Admin: 04/25/16 06:52 Dose: 9.09 mls/hr Heparin Sodium/Sodium Chloride (Heparin 44545 Units/250ml 1/2 Normal Saline) 250 mls @ 14.158 mls/hr IV .[id number] PRN; Protocol; 18 UNITS/KG/HR PRN Reason: ADJUST RATE PER PROTOCOL Last Admin: 04/24/16 11:28 Dose: 10.225 mls/hr Norepinephrine Bitartrate 16 (mg/ Dextrose) 1,016 mls @ 95.25 mls/hr IV .[id number] PRN; Protocol; 25 MCG/MIN PRN Reason: TITRATE PER MD ORDER Last Titration: 04/25/16 03:45 Dose: 4 mcg/min Metronidazole (Flagyl) 100 mls @ 100 mls/hr IVPB Q8 SIMON PRN Reason: Protocol Last Admin: 04/25/16 05:24 Dose: 100 mls/hr Dobutamine HCl/Dextrose (Dobutamine/Dextrose 5% 500mg/250ml) 250 mls @ 6.017 mls/hr IV .Q24H PRN; Protocol; 2.5 MCG/KG/MIN PRN Reason: TITRATE PER PROTOCOL Last Admin: 04/24/16 16:57 Dose: 6.017 mls/hr Lactulose (Enulose) 20 gm PO DAILY [facility] Last Admin: 04/24/16 11:08 Dose: 20 gm Lorazepam (Ativan) 2 mg IVP Q2H PRN; Protocol PRN Reason: Agitation Last Admin: 04/21/16 14:03 Dose: 2 mg Midodrine (Proamatine) 10 mg PO Q12H [facility] Last Admin: 04/24/16 22:11 Dose: 10 mg Morphine Sulfate (Morphine) 2 mg IVP Q4H PRN PRN Reason: Pain, moderate (4-7) Last Admin: 04/25/16 06:07 Dose: 2 mg Pantoprazole Sodium (Protonix Inj) 40 mg IVP DAILY [facility] Last Admin: 04/24/16 11:09 Dose: 40 mg Vancomycin HCl (Vancocin 25 Mg/Ml (Oral Use)) 125 mg PO QID SIMON PRN Reason: Protocol Last Admin: 04/24/16 22:16 Dose: 125 mg - Labs Labs: 04/25/16 05:00 04/25/16 05:00 PT 16.7 Seconds (9.9-11.8) H 04/24/16 06:30 INR 1.55 (0.93-1.08) H 04/24/16 06:30 APTT 73.2 Seconds (23.7-30.8) H* 04/25/16 05:00 - Constitutional Appears: Non-toxic - Head Exam Head Exam: ATRAUMATIC - ENT Exam ENT Exam: Mucous Membranes Moist - Respiratory Exam Respiratory Exam: Clear to Ausculation Bilateral, NORMAL BREATHING PATTERN - Cardiovascular Exam Cardiovascular Exam: REGULAR RHYTHM, +S1, +S2 Additional comments: chest tube in place. dressing clean dry intact. 280cc/24hrs serosang - GI/Abdominal Exam GI & Abdominal Exam: Soft. absent: Distended, Firm, Guarding, Rigid, Tenderness , Rebound - Neurological Exam Neurological Exam: Alert, Awake - Skin Skin Exam: Dry, Intact, Normal Color, Warm Assessment and Plan - Assessment and Plan (Free Text) Assessment: 50M s/p chest tube placement POD#4 Plan: - Monitor dressing - daily CXR, monitor chest tube output - Monitor A-line site Discussed with Dr. Sebastián Soto, PGY1
[2016-04-25] MEDS: Albumin Human 25% (12.5 gm/50 ml) IV SCH ×6 (08:41→12:22)
[2016-04-25] MEDS: Vancomycin 25 MG/ML PO SCH ×4 (09:16→22:45)
--- NOTE | 2016-04-25 09:25 | CP.CCUPN ---
<Joan Beck - Last Filed: 04/25/16 11:49> CCU Subjective - Physician Review Subjective (Free Text): 04/25/16 09:26 Pt s&e w ICU attending. DEXTER. Pt continue to have soft stool. Pt on Lactulose. Denies SOB, CP, ALEXANDER. Pt is resting comfortably. CT in place. On Levo 4mcg. CCU Objective - Vital Signs / Intake & Output Vital Signs (Last 4 hours): Vital Signs Pulse Resp BP Pulse Ox 04/25/16 06:09 69 16 101/48 L 91 L 04/25/16 06:00 83 27 H 89 L Intake and Output (Last 8hrs): Intake & Output 04/24/16 04/25/16 04/25/16 22:59 06:59 14:59 Intake Total 1518 1212 Output Total 245 280 Balance 1273 932 Intake: IV 918 712 RFA 72 heparin 120 Antibiotics 200 300 Levophed 490 232 Vasopressin 108 108 Oral 600 500 Output: Chest Tube Drainage 245 280 Right 245 280 Urine 0 0 Urine, Voided 0 0 Other: # Bowel Movements 2 2 - Physical Exam Head: Positive for: Atraumatic, Normocephalic Pupils: Positive for: PERRL Extroacular Muscles: Positive for: EOMI Conjunctiva: Positive for: Normal. Negative for: Injected, Icteric Mouth: Positive for: Dry Respiratory/Chest: Positive for: Decreased Breath Sounds, Other (CT on R chest: 530cc/24. SS . On NC 5L ). Negative for: Accessory Muscle Use Cardiovascular: Positive for: Regular Rate and Rhythm, Normal S1, S2. Negative for: Murmurs Abdomen: Positive for: Normal Bowel Sounds. Negative for: Tenderness, Distention, Peritoneal Signs Upper Extremity: Positive for: Edema. Negative for: Cyanosis Lower Extremity: Positive for: Edema. Negative for: CALF TENDERNESS Neurological: Positive for: GCS=15, CN II-XII Intact, Speech Normal Skin: Positive for: Warm, Dry, Normal Color. Negative for: Rashes Psychiatric: Positive for: Alert, Oriented x 3 - Medications Active Medications: Active Medications Generic Name Dose Route Start Last Admin Trade Name Freq PRN Reason Stop Dose Admin Albumin Human 12.5 gm 04/25/16 08:00 04/25/16 08:41 Albumin Human 25% (12.5 Gm/50 Ml) IV 04/25/16 13:01 12.5 gm Q1H SIMON Administration Albuterol/Ipratropium 3 ml 04/20/16 13:13 04/24/16 07:38 Duoneb 3 Mg/0.5 Mg (3 Ml) Ud IH 3 ml [id number] PRN Administration Shortness of Breath Calcium Acetate 667 mg 04/21/16 08:00 04/25/16 08:06 Phoslo PO 667 mg WM SIMON Administration Hydrocortisone Sodium Succinate 50 mg 04/22/16 08:30 04/25/16 08:06 Solu-Cortef IVP 50 mg Q6H SIMON Administration Propofol 100 mls @ 2.36 mls/hr 04/20/16 19:13 04/21/16 08:25 Diprivan IV 0 mcg/kg/min .Q24H PRN Titration TITRATE PER MD ORDER Protocol 5 MCG/KG/MIN Meropenem 500 mg/ Sodium 100 mls @ 100 mls/hr 04/21/16 10:00 04/24/16 22:49 Chloride IVPB 04/28/16 10:01 100 mls/hr Q12 SIMON Administration Protocol Vasopressin 20 units/ Sodium 101 mls @ 9.09 mls/hr 04/21/16 08:30 04/25/16 06: 52 Chloride IV 9.09 mls/hr .[id number] SIMON Administration Protocol 0.03 U/MIN Heparin Sodium/Sodium Chloride 250 mls @ 14.158 mls/hr 04/23/16 07:51 04/24/16 11:28 Heparin 34413 Units/250ml 1/2 Normal Saline IV 10.225 mls/hr .[id number] PRN Administration ADJUST RATE PER PROTOCOL Protocol 18 UNITS/KG/HR Norepinephrine Bitartrate 16 1,016 mls @ 95.25 mls/hr 04/23/16 11:40 04/25/16 03:45 mg/ Dextrose IV 4 mcg/min .[id number] PRN Titration TITRATE PER MD ORDER Protocol 25 MCG/MIN Metronidazole 100 mls @ 100 mls/hr 04/23/16 14:30 04/25/16 05:24 Flagyl IVPB 100 mls/hr Q8 SIMON Administration Protocol Dobutamine HCl/Dextrose 250 mls @ 6.017 mls/hr 04/24/16 16:24 03/12/17 16:57 Dobutamine/Dextrose 5% 500mg/250ml IV 6.017 mls/hr .Q24H PRN Administration TITRATE PER PROTOCOL Protocol 2.5 MCG/KG/MIN Lactulose 20 gm 04/24/16 10:00 04/24/16 11:08 Enulose PO 20 gm DAILY SIMON Administration Lorazepam 2 mg 04/21/16 08:41 04/21/16 14:03 Ativan IVP 2 mg Q2H PRN Administration Agitation Protocol Midodrine 10 mg 04/20/16 22:00 04/24/16 22:11 Proamatine PO 10 mg Q12H SIMON Administration Pantoprazole Sodium 40 mg 04/20/16 10:00 04/24/16 11:09 Protonix Inj IVP 40 mg DAILY SIMON Administration Vancomycin HCl 125 mg 04/23/16 18:00 04/24/16 22:16 Vancocin 25 Mg/Ml (Oral Use) PO 125 mg QID SIMON Administration Protocol - Patient Studies Lab Studies: Microbiology Studies 04/22/16 16:07 Gram Stain - Final Ascitic Fluid Anaerobic Culture - Final NO ANAEROBES ISOLATED. Body Fluid Culture - Preliminary NO GROWTH AFTER 2 DAYS Fungal Culture - Preliminary 04/21/16 20:27 Gram Stain - Final Sputum Sputum Culture - Final Klebsiella Pneumoniae Ssp Pneu Lab Studies 04/25/16 04/24/16 04/24/16 Range/Units 05:00 21:23 16:26 WBC 8.7 D (4.5-11.0) 10^3/ul RBC 3.75 (3.5-6.1) 10^6/uL Hgb 10.9 L (14.0-18.0) gm/dL Hct 32.8 L (42.0-52.0) % MCV 87.5 (80.0-105.0) fL MCH 29.1 (25.0-35.0) pg MCHC 33.2 (31.0-37.0) g/dl RDW 15.5 H (11.5-14.5) % Plt Count 47 L* (120.0-450.0) 10^3/uL MPV 10.7 (7.0-11.0) fl Gran % 88.7 H (50.0-68.0) % Lymph % (Auto) 4.0 L (22.0-35.0) % [place] % (Auto) 7.3 H (1.0-6.0) % Eos % (Auto) 0.0 L (1.5-5.0) % Baso % (Auto) 0.0 (0.0-3.0) % Gran # 7.75 H (1.4-6.5) Lymph # 0.4 L (1.2-3.4) [place] # 0.6 (0.1-0.6) Eos # 0.0 (0.0-0.7) Baso # 0.00 (0.0-2.0) K/mm3 APTT 73.2 H* (23.7-30.8) Seconds Sodium 129 L (132-148) mmol/L Potassium 3.7 (3.6-5.0) mmol/L Chloride 98 (98-107) mmol/L Carbon Dioxide 25 (21-33) mmol/L Anion Gap 10 (10-20) BUN 34 H (7-21) mg/dL Creatinine 4.1 H (0.5-1.4) mg/dL Est GFR ( Amer) 19 Est GFR (Non-Af Amer) 15 POC Glucose (mg/dL) 115 H 131 H (65-110) mg/dL Random Glucose 111 H (70-110) mg/dL Calcium 6.8 L* (8.4-10.5) mg/dL Total Bilirubin 1.0 (0.2-1.3) mg/dL AST 17 (15-59) U/L ALT 27 (7-56) U/L Alkaline Phosphatase 143 H (38-133) U/L Total Protein 3.7 L (5.8-8.3) g/dL Albumin 1.8 L (3.0-4.8) g/dL Globulin 1.9 gm/dL Albumin/Globulin Ratio 0.9 L (1.1-1.8) 04/24/16 04/24/16 04/24/16 Range/Units 13:00 10:26 06:21 WBC (4.5-11.0) 10^3/ul RBC (3.5-6.1) 10^6/uL Hgb (14.0-18.0) gm/dL Hct (42.0-52.0) % MCV (80.0-105.0) fL MCH (25.0-35.0) pg MCHC (31.0-37.0) g/dl RDW (11.5-14.5) % Plt Count (120.0-450.0) 10^3/uL MPV (7.0-11.0) fl Gran % (50.0-68.0) % Lymph % (Auto) (22.0-35.0) % [place] % (Auto) (1.0-6.0) % Eos % (Auto) (1.5-5.0) % Baso % (Auto) (0.0-3.0) % Gran # (1.4-6.5) Lymph # (1.2-3.4) [place] # (0.1-0.6) Eos # (0.0-0.7) Baso # (0.0-2.0) K/mm3 APTT 53.9 H (23.7-30.8) Seconds Sodium (132-148) mmol/L Potassium (3.6-5.0) mmol/L Chloride (98-107) mmol/L Carbon Dioxide (21-33) mmol/L Anion Gap (10-20) BUN (7-21) mg/dL Creatinine (0.5-1.4) mg/dL Est GFR ( Amer) Est GFR (Non-Af Amer) POC Glucose (mg/dL) 136 H 116 H (65-110) mg/dL Random Glucose (70-110) mg/dL Calcium (8.4-10.5) mg/dL Total Bilirubin (0.2-1.3) mg/dL AST (15-59) U/L ALT (7-56) U/L Alkaline Phosphatase (38-133) U/L Total Protein (5.8-8.3) g/dL Albumin (3.0-4.8) g/dL Globulin gm/dL Albumin/Globulin Ratio (1.1-1.8) Laboratory Results - last 24 hr 04/24/16 04/24/16 04/24/16 06:21 10:26 13:00 WBC RBC Hgb Hct MCV MCH MCHC RDW Plt Count MPV Gran % Lymph % (Auto) [place] % (Auto) Eos % (Auto) Baso % (Auto) Gran # Lymph # [place] # Eos # Baso # APTT 53.9 H Sodium Potassium Chloride Carbon Dioxide Anion Gap BUN Creatinine Est GFR ( Amer) Est GFR (Non-Af Amer) POC Glucose (mg/dL) 116 H 136 H Random Glucose Calcium Total Bilirubin AST ALT Alkaline Phosphatase Total Protein Albumin Globulin Albumin/Globulin Ratio 04/24/16 04/24/16 04/25/16 16:26 21:23 05:00 WBC 8.7 D RBC 3.75 Hgb 10.9 L Hct 32.8 L MCV 87.5 MCH 29.1 MCHC 33.2 RDW 15.5 H Plt Count 47 L* MPV 10.7 Gran % 88.7 H Lymph % (Auto) 4.0 L [place] % (Auto) 7.3 H Eos % (Auto) 0.0 L Baso % (Auto) 0.0 Gran # 7.75 H Lymph # 0.4 L [place] # 0.6 Eos # 0.0 Baso # 0.00 APTT 73.2 H* Sodium 129 L Potassium 3.7 Chloride 98 Carbon Dioxide 25 Anion Gap 10 BUN 34 H Creatinine 4.1 H Est GFR ( Amer) 19 Est GFR (Non-Af Amer) 15 POC Glucose (mg/dL) 131 H 115 H Random Glucose 111 H Calcium 6.8 L* Total Bilirubin 1.0 AST 17 ALT 27 Alkaline Phosphatase 143 H Total Protein 3.7 L Albumin 1.8 L Globulin 1.9 Albumin/Globulin Ratio 0.9 L Fingerstick Blood Sugar Results: 115 Review of Systems - Constitutional Constitutional: absent: Fever, Chills - EENT Eyes: absent: Blurred Vision, Change in Vision Ears: absent: Decreased Hearing Nose/Mouth/Throat: absent: Epistaxis - Cardiovascular Cardiovascular: absent: Chest Pain - Respiratory Respiratory: absent: Cough, Dyspnea - Gastrointestinal Gastrointestinal: absent: Abdominal Pain, Bloating - Genitourinary Genitourinary: absent: Change in Urinary Stream Critical Care Progress Note - Ventilator Checklist Head of Bed 30 Degrees: Yes Daily Sedation Vacation: No - Nutrition Nutrition: Nutrition Category Date Time Status Renal Diet [DIET] Diets 04/23/16 Dinner Ordered Assessment/Plan - Assessment and Plan (Free Text) Assessment: 50 yo male with PMH of ESRD on HD (T,TH,S) cirrhosis, hep C, alcohol abuse, and h/o cocaine and heroin use presented with septic shock 2/2 aspiration PNA with multiorgan failure. He has hypoxemic respiratory failure and AMS. Surgery placed a chest tube on right side which produced 530cc. Right femoral central line placed and left femoral arterial line: Improving overall. Plan: Neuro: AAO x3 - initially presented with AMS - ativan and morphine - will treat empirically for hepatic encephalopathy - cont to monitor cardio - spetic shock with hypotension - levophed 4mcg/hr - albumin - arterial line - midodrine BID - echo should EF for 50% with severe pulmonary HTN and bioprosthesis valve - Dobutamine for pulm HTN - cont to monitor - maintain MAP>65 - cardiology following pulm - hypoxemic respiratory failure 2/2 aspiration PNE - CTA showed no PE, bilateral pleural effusions R>L - repeat cxr showed worsening b/l infiltrate - Chest tube is on suction without air leaks and produced a total of 530cc of serosanganous fluid - surgery following - NC O2 5L - cont to monitor - aspiration precaution, HOB >35 GI: C-diff ag + - h/o hep c, cirrhosis, and ascites - abd US showed moderate ascites with mild hepatosplenomegaly and moderate bilateral pleural effusions - on lactulose for empiric treatment for hepatic encephalopathy - titrate lactulose to 2-3 BM per day - s/p paracentesis: 2L out - GI following - Renal diet - Albumin - protonix ppx - Vanc/Flagyl Renal - ESRD on HD - nephro following, Dr. Gonzalez - monitor electrolytes, replace as needed endo - maintain euglycemia ID - septic shock 2/2 aspiration PNA, C-diff - afebrile, no leukocytosis - cont meropenem, Flagyl and vanco - blood cx neg - Sputum cx : Klebsiella - maintain normathermia - ID following, Dr. Millard DVT: + for LUE -Heparin drip Disposition: Titrate Levophed. When off pressors, ok to transfer out. d/w attending <Gabriel Johns - Last Filed: 04/25/16 17:29> CCU Objective - Vital Signs / Intake & Output Vital Signs (Last 4 hours): Vital Signs Temp Pulse Resp BP Pulse Ox 04/25/16 17:12 92 H 90/53 L 04/25/16 16:00 97.7 F 04/25/16 15:00 83 12 98/40 L 95 04/25/16 14:04 96 H 69 H 142/62 04/25/16 14:03 87 15 04/25/16 14:00 141 H 19 04/25/16 13:47 85 23 Intake and Output (Last 8hrs): Intake & Output 04/25/16 04/25/16 04/25/16 06:59 14:59 22:59 Intake Total 1212 Output Total 280 Balance 932 Weight 176 lb 14.8 oz Intake: IV 712 RFA 72 Antibiotics 300 Levophed 232 Vasopressin 108 Oral 500 Output: Chest Tube Drainage 280 Right 280 Urine 0 Urine, Voided 0 Other: # Bowel Movements 2 - Medications Active Medications: Active Medications Generic Name Dose Route Start Last Admin Trade Name Freq PRN Reason Stop Dose Admin Albuterol/Ipratropium 3 ml 04/20/16 13:13 04/24/16 07:38 Duoneb 3 Mg/0.5 Mg (3 Ml) Ud IH 3 ml [id number] PRN Administration Shortness of Breath Calcium Acetate 667 mg 04/21/16 08:00 04/25/16 17:05 Phoslo PO 667 mg WM SIMON Administration Famotidine 40 mg 04/25/16 22:00 Pepcid PO HS SIMON Hydrocortisone Sodium Succinate 50 mg 04/22/16 08:30 04/25/16 13:32 Solu-Cortef IVP 50 mg Q6H SIMON Administration Propofol 100 mls @ 2.36 mls/hr 04/20/16 19:13 04/21/16 08:25 Diprivan IV 0 mcg/kg/min .Q24H PRN Titration TITRATE PER MD ORDER Protocol 5 MCG/KG/MIN Meropenem 500 mg/ Sodium 100 mls @ 100 mls/hr 04/21/16 10:00 04/25/16 13:17 Chloride IVPB 04/28/16 10:01 100 mls/hr Q12 SIMON Administration Protocol Heparin Sodium/Sodium Chloride 250 mls @ 14.158 mls/hr 04/23/16 07:51 04/25/16 13:14 Heparin 82187 Units/250ml 1/2 Normal Saline IV 10.225 mls/hr .[id number] PRN Administration ADJUST RATE PER PROTOCOL Protocol 18 UNITS/KG/HR Metronidazole 100 mls @ 100 mls/hr 04/23/16 14:30 04/25/16 13:13 Flagyl IVPB 100 mls/hr Q8 SIMON Administration Protocol Dobutamine HCl/Dextrose 250 mls @ 6.017 mls/hr 04/24/16 16:24 04/25/16 17:09 Dobutamine/Dextrose 5% 500mg/250ml IV 6.017 mls/hr .Q24H PRN Administration TITRATE PER PROTOCOL Protocol 2.5 MCG/KG/MIN Vasopressin 20 units/ Sodium 101 mls @ 9.09 mls/hr 04/25/16 15:35 04/25/16 17: 12 Chloride IV 9.09 mls/hr .[id number] SIMON Administration Protocol 0.03 U/MIN Norepinephrine Bitartrate 4 mg 254 mls @ 9 mls/hr 04/25/16 15:52 04/25/16 17:15 / Dextrose IV 15.24 mls/hr .Q24H PRN Administration TITRATE PER MD ORDER Protocol Lactulose 20 gm 04/24/16 10:00 04/25/16 13:13 Enulose PO 20 gm DAILY SIMON Administration Lorazepam 2 mg 04/21/16 08:41 04/25/16 14:33 Ativan IVP 2 mg Q2H PRN Administration Agitation Protocol Midodrine 10 mg 04/20/16 22:00 04/25/16 13:18 Proamatine PO 10 mg Q12H SIMON Administration Vancomycin HCl 125 mg 04/23/16 18:00 04/25/16 17:06 Vancocin 25 Mg/Ml (Oral Use) PO 125 mg QID SIMON Administration Protocol - Patient Studies Lab Studies: Microbiology Studies 04/22/16 16:07 Gram Stain - Final Ascitic Fluid Anaerobic Culture - Final NO ANAEROBES ISOLATED. Body Fluid Culture - Preliminary NO GROWTH AFTER 3 DAYS Fungal Culture - Preliminary Lab Studies 04/25/16 04/24/16 04/24/16 Range/Units 05:00 21:23 16:26 WBC 8.7 D (4.5-11.0) 10^3/ul RBC 3.75 (3.5-6.1) 10^6/uL Hgb 10.9 L (14.0-18.0) gm/dL Hct 32.8 L (42.0-52.0) % MCV 87.5 (80.0-105.0) fL MCH 29.1 (25.0-35.0) pg MCHC 33.2 (31.0-37.0) g/dl RDW 15.5 H (11.5-14.5) % Plt Count 47 L* (120.0-450.0) 10^3/uL MPV 10.7 (7.0-11.0) fl Gran % 88.7 H (50.0-68.0) % Lymph % (Auto) 4.0 L (22.0-35.0) % [place] % (Auto) 7.3 H (1.0-6.0) % Eos % (Auto) 0.0 L (1.5-5.0) % Baso % (Auto) 0.0 (0.0-3.0) % Gran # 7.75 H (1.4-6.5) Lymph # 0.4 L (1.2-3.4) [place] # 0.6 (0.1-0.6) Eos # 0.0 (0.0-0.7) Baso # 0.00 (0.0-2.0) K/mm3 APTT 73.2 H* (23.7-30.8) Seconds Sodium 129 L (132-148) mmol/L Potassium 3.7 (3.6-5.0) mmol/L Chloride 98 (98-107) mmol/L Carbon Dioxide 25 (21-33) mmol/L Anion Gap 10 (10-20) BUN 34 H (7-21) mg/dL Creatinine 4.1 H (0.5-1.4) mg/dL Est GFR ( Amer) 19 Est GFR (Non-Af Amer) 15 POC Glucose (mg/dL) 115 H 131 H (65-110) mg/dL Random Glucose 111 H (70-110) mg/dL Calcium 6.8 L* (8.4-10.5) mg/dL Total Bilirubin 1.0 (0.2-1.3) mg/dL AST 17 (15-59) U/L ALT 27 (7-56) U/L Alkaline Phosphatase 143 H (38-133) U/L Total Protein 3.7 L (5.8-8.3) g/dL Albumin 1.8 L (3.0-4.8) g/dL Globulin 1.9 gm/dL Albumin/Globulin Ratio 0.9 L (1.1-1.8) Peritoneal Lipase (<10) U/L Pleural Total Protein (()) g/dL Pleural LDH (()) U/L Toxicology Panel (()) 04/24/16 04/24/16 04/22/16 Range/Units 10:26 06:21 16:07 WBC (4.5-11.0) 10^3/ul RBC (3.5-6.1) 10^6/uL Hgb (14.0-18.0) gm/dL Hct (42.0-52.0) % MCV (80.0-105.0) fL MCH (25.0-35.0) pg MCHC (31.0-37.0) g/dl RDW (11.5-14.5) % Plt Count (120.0-450.0) 10^3/uL MPV (7.0-11.0) fl Gran % (50.0-68.0) % Lymph % (Auto) (22.0-35.0) % [place] % (Auto) (1.0-6.0) % Eos % (Auto) (1.5-5.0) % Baso % (Auto) (0.0-3.0) % Gran # (1.4-6.5) Lymph # (1.2-3.4) [place] # (0.1-0.6) Eos # (0.0-0.7) Baso # (0.0-2.0) K/mm3 APTT (23.7-30.8) Seconds Sodium (132-148) mmol/L Potassium (3.6-5.0) mmol/L Chloride (98-107) mmol/L Carbon Dioxide (21-33) mmol/L Anion Gap (10-20) BUN (7-21) mg/dL Creatinine (0.5-1.4) mg/dL Est GFR ( Amer) Est GFR (Non-Af Amer) POC Glucose (mg/dL) 136 H 116 H (65-110) mg/dL Random Glucose (70-110) mg/dL Calcium (8.4-10.5) mg/dL Total Bilirubin (0.2-1.3) mg/dL AST (15-59) U/L ALT (7-56) U/L Alkaline Phosphatase (38-133) U/L Total Protein (5.8-8.3) g/dL Albumin (3.0-4.8) g/dL Globulin gm/dL Albumin/Globulin Ratio (1.1-1.8) Peritoneal Lipase 5.0 (<10) U/L Pleural Total Protein (()) g/dL Pleural LDH (()) U/L Toxicology Panel (()) 04/22/16 04/19/16 Range/Units 09:00 21:10 WBC (4.5-11.0) 10^3/ul RBC (3.5-6.1) 10^6/uL Hgb (14.0-18.0) gm/dL Hct (42.0-52.0) % MCV (80.0-105.0) fL MCH (25.0-35.0) pg MCHC (31.0-37.0) g/dl RDW (11.5-14.5) % Plt Count (120.0-450.0) 10^3/uL MPV (7.0-11.0) fl Gran % (50.0-68.0) % Lymph % (Auto) (22.0-35.0) % [place] % (Auto) (1.0-6.0) % Eos % (Auto) (1.5-5.0) % Baso % (Auto) (0.0-3.0) % Gran # (1.4-6.5) Lymph # (1.2-3.4) [place] # (0.1-0.6) Eos # (0.0-0.7) Baso # (0.0-2.0) K/mm3 APTT (23.7-30.8) Seconds Sodium (132-148) mmol/L Potassium (3.6-5.0) mmol/L Chloride (98-107) mmol/L Carbon Dioxide (21-33) mmol/L Anion Gap (10-20) BUN (7-21) mg/dL Creatinine (0.5-1.4) mg/dL Est GFR ( Amer) Est GFR (Non-Af Amer) POC Glucose (mg/dL) (65-110) mg/dL Random Glucose (70-110) mg/dL Calcium (8.4-10.5) mg/dL Total Bilirubin (0.2-1.3) mg/dL AST (15-59) U/L ALT (7-56) U/L Alkaline Phosphatase (38-133) U/L Total Protein (5.8-8.3) g/dL Albumin (3.0-4.8) g/dL Globulin gm/dL Albumin/Globulin Ratio (1.1-1.8) Peritoneal Lipase (<10) U/L Pleural Total Protein <3.0 (()) g/dL Pleural LDH 126 (()) U/L Toxicology Panel see note (()) Laboratory Results - last 24 hr 04/19/16 04/22/16 04/22/16 21:10 09:00 16:07 WBC RBC Hgb Hct MCV MCH MCHC RDW Plt Count MPV Gran % Lymph % (Auto) [place] % (Auto) Eos % (Auto) Baso % (Auto) Gran # Lymph # [place] # Eos # Baso # APTT Sodium Potassium Chloride Carbon Dioxide Anion Gap BUN Creatinine Est GFR ( Amer) Est GFR (Non-Af Amer) POC Glucose (mg/dL) Random Glucose Calcium Total Bilirubin AST ALT Alkaline Phosphatase Total Protein Albumin Globulin Albumin/Globulin Ratio Peritoneal Lipase 5.0 Pleural Total Protein <3.0 Pleural LDH 126 Toxicology Panel see note 04/24/16 04/24/16 04/24/16 06:21 10:26 16:26 WBC RBC Hgb Hct MCV MCH MCHC RDW Plt Count MPV Gran % Lymph % (Auto) [place] % (Auto) Eos % (Auto) Baso % (Auto) Gran # Lymph # [place] # Eos # Baso # APTT Sodium Potassium Chloride Carbon Dioxide Anion Gap BUN Creatinine Est GFR ( Amer) Est GFR (Non-Af Amer) POC Glucose (mg/dL) 116 H 136 H 131 H Random Glucose Calcium Total Bilirubin AST ALT Alkaline Phosphatase Total Protein Albumin Globulin Albumin/Globulin Ratio Peritoneal Lipase Pleural Total Protein Pleural LDH Toxicology Panel 04/24/16 04/25/16 21:23 05:00 WBC 8.7 D RBC 3.75 Hgb 10.9 L Hct 32.8 L MCV 87.5 MCH 29.1 MCHC 33.2 RDW 15.5 H Plt Count 47 L* MPV 10.7 Gran % 88.7 H Lymph % (Auto) 4.0 L [place] % (Auto) 7.3 H Eos % (Auto) 0.0 L Baso % (Auto) 0.0 Gran # 7.75 H Lymph # 0.4 L [place] # 0.6 Eos # 0.0 Baso # 0.00 APTT 73.2 H* Sodium 129 L Potassium 3.7 Chloride 98 Carbon Dioxide 25 Anion Gap 10 BUN 34 H Creatinine 4.1 H Est GFR ( Amer) 19 Est GFR (Non-Af Amer) 15 POC Glucose (mg/dL) 115 H Random Glucose 111 H Calcium 6.8 L* Total Bilirubin 1.0 AST 17 ALT 27 Alkaline Phosphatase 143 H Total Protein 3.7 L Albumin 1.8 L Globulin 1.9 Albumin/Globulin Ratio 0.9 L Peritoneal Lipase Pleural Total Protein Pleural LDH Toxicology Panel Critical Care Progress Note - Nutrition Nutrition: Nutrition Category Date Time Status Renal Diet [DIET] Diets 04/23/16 Dinner Ordered Addendum Addendum: 04/25/16 17:29 patient was seen and examined with Dr. Joan Beck. Please see Dr. Johns note
--- NOTE | 2016-04-25 09:55 | CP.PCM.PN ---
Subjective - Date & Time of Evaluation Date of Evaluation: 04/25/16 Time of Evaluation: 09:10 - Subjective Subjective: Patient is now extubated but still having cough. He is currently afebrile. Objective - Vital Signs/Intake and Output Vital Signs (last 24 hours): Temp Pulse Resp BP Pulse Ox 98.0 F 69 16 101/48 L 91 L 04/25/16 04:00 04/25/16 06:09 04/25/16 06:09 04/25/16 06:09 04/25/16 06:09 Intake and Output: 04/25/16 04/25/16 06:59 18:59 Intake Total 1212 Output Total 280 Balance 932 - Medications Medications: Current Medications Albumin Human (Albumin Human 25% (12.5 Gm/50 Ml)) 12.5 gm IV Q1H SIMON Stop: 04/25/16 13:01 Albuterol/Ipratropium (Duoneb 3 Mg/0.5 Mg (3 Ml) Ud) 3 ml IH [id number] PRN PRN Reason: Shortness of Breath Last Admin: 04/24/16 07:38 Dose: 3 ml Calcium Acetate (Phoslo) 667 mg PO WM SIMON Last Admin: 04/25/16 08:06 Dose: 667 mg Hydrocortisone Sodium Succinate (Solu-Cortef) 50 mg IVP Q6H SIMON Last Admin: 04/25/16 08:06 Dose: 50 mg Propofol (Diprivan) 100 mls @ 2.36 mls/hr IV .Q24H PRN; Protocol; 5 MCG/KG/MIN PRN Reason: TITRATE PER MD ORDER Last Titration: 04/21/16 08:25 Dose: 0 mcg/kg/min Meropenem 500 mg/ Sodium (Chloride) 100 mls @ 100 mls/hr IVPB Q12 SIMON PRN Reason: Protocol Stop: 04/28/16 10:01 Last Admin: 04/24/16 22:49 Dose: 100 mls/hr Vasopressin 20 units/ Sodium (Chloride) 101 mls @ 9.09 mls/hr IV .[id number] SIMON; 0.03 U/MIN PRN Reason: Protocol Last Admin: 04/25/16 06:52 Dose: 9.09 mls/hr Heparin Sodium/Sodium Chloride (Heparin 93301 Units/250ml 1/2 Normal Saline) 250 mls @ 14.158 mls/hr IV .[id number] PRN; Protocol; 18 UNITS/KG/HR PRN Reason: ADJUST RATE PER PROTOCOL Last Admin: 04/24/16 11:28 Dose: 10.225 mls/hr Norepinephrine Bitartrate 16 (mg/ Dextrose) 1,016 mls @ 95.25 mls/hr IV .[id number] PRN; Protocol; 25 MCG/MIN PRN Reason: TITRATE PER MD ORDER Last Titration: 04/25/16 03:45 Dose: 4 mcg/min Metronidazole (Flagyl) 100 mls @ 100 mls/hr IVPB Q8 SIMON PRN Reason: Protocol Last Admin: 04/25/16 05:24 Dose: 100 mls/hr Dobutamine HCl/Dextrose (Dobutamine/Dextrose 5% 500mg/250ml) 250 mls @ 6.017 mls/hr IV .Q24H PRN; Protocol; 2.5 MCG/KG/MIN PRN Reason: TITRATE PER PROTOCOL Last Admin: 04/24/16 16:57 Dose: 6.017 mls/hr Lactulose (Enulose) 20 gm PO DAILY [facility] Last Admin: 04/24/16 11:08 Dose: 20 gm Lorazepam (Ativan) 2 mg IVP Q2H PRN; Protocol PRN Reason: Agitation Last Admin: 04/21/16 14:03 Dose: 2 mg Midodrine (Proamatine) 10 mg PO Q12H [facility] Last Admin: 04/24/16 22:11 Dose: 10 mg Morphine Sulfate (Morphine) 2 mg IVP Q4H PRN PRN Reason: Pain, moderate (4-7) Last Admin: 04/25/16 06:07 Dose: 2 mg Pantoprazole Sodium (Protonix Inj) 40 mg IVP DAILY [facility] Last Admin: 04/24/16 11:09 Dose: 40 mg Vancomycin HCl (Vancocin 25 Mg/Ml (Oral Use)) 125 mg PO QID SIMON PRN Reason: Protocol Last Admin: 04/24/16 22:16 Dose: 125 mg - Labs Labs: 04/25/16 05:00 04/25/16 05:00 PT 16.7 Seconds (9.9-11.8) H 04/24/16 06:30 INR 1.55 (0.93-1.08) H 04/24/16 06:30 APTT 73.2 Seconds (23.7-30.8) H* 04/25/16 05:00 - Constitutional Appears: No Acute Distress - ENT Exam ENT Exam: Mucous Membranes Moist - Neck Exam Neck Exam: absent: Lymphadenopathy, Meningismus - Respiratory Exam Respiratory Exam: Decreased Breath Sounds Additional comments: right anterior chest wall port site intact - Cardiovascular Exam Cardiovascular Exam: +S1, +S2 - GI/Abdominal Exam GI & Abdominal Exam: Soft. absent: Tenderness Assessment and Plan - Assessment and Plan (Free Text) Plan: Assessment Septic shock with multiorgan dysfunction syndrome (MODS) with acute toxic- metabolic encephalopathy, chronic renal failure, hypoxic respiratory failure (S/ P ventilator-dependence) with probable right sided severe healthcare-associated pneumonia with Klebsiella (ESBL-producing, multidrug-resistant) with pleural effusion S/P chest tube placement POD #4 in a patient who possibly overdosed on heroin; slowly improving clinically CAD S/P CABG ESRD on HD history of lymphadenopathy Plan continue Meropenem (day 5); sputum cx growing Klebsiella (ESBL-producing, multidrug-resistant) as well as cultures of the pleural fluid; blood cx are negative; reviewed CXR and CT chest Patient continues to be in critical condition and will monitor closely
--- NOTE | 2016-04-25 10:56 | CP.PCM.PN ---
<Leonel Pierre - Last Filed: 04/25/16 10:43> Subjective - Date & Time of Evaluation Date of Evaluation: 04/25/16 Time of Evaluation: 10:43 - Subjective Subjective: Pt seen and examined at bedside. Pt doing well with no new complaints. No acute events overnight. Pt resting comfortably after being switched to nasal cannula yesterday. Pt receiving hemodialysis today. Denies CP, SOB, N/V/D, fevers, chills. Objective - Vital Signs/Intake and Output Vital Signs (last 24 hours): Temp Pulse Resp BP Pulse Ox 98.0 F 69 16 101/48 L 91 L 04/25/16 04:00 04/25/16 06:09 04/25/16 06:09 04/25/16 06:09 04/25/16 06:09 Intake and Output: 04/25/16 04/25/16 06:59 18:59 Intake Total 1212 Output Total 280 Balance 932 - Medications Medications: Current Medications Albumin Human (Albumin Human 25% (12.5 Gm/50 Ml)) 12.5 gm IV Q1H SIMON Stop: 04/25/16 13:01 Last Admin: 04/25/16 09:52 Dose: 12.5 gm Albuterol/Ipratropium (Duoneb 3 Mg/0.5 Mg (3 Ml) Ud) 3 ml IH [id number] PRN PRN Reason: Shortness of Breath Last Admin: 04/24/16 07:38 Dose: 3 ml Calcium Acetate (Phoslo) 667 mg PO WM SIMON Last Admin: 04/25/16 08:06 Dose: 667 mg Hydrocortisone Sodium Succinate (Solu-Cortef) 50 mg IVP Q6H SIMON Last Admin: 04/25/16 08:06 Dose: 50 mg Propofol (Diprivan) 100 mls @ 2.36 mls/hr IV .Q24H PRN; Protocol; 5 MCG/KG/MIN PRN Reason: TITRATE PER MD ORDER Last Titration: 04/21/16 08:25 Dose: 0 mcg/kg/min Meropenem 500 mg/ Sodium (Chloride) 100 mls @ 100 mls/hr IVPB Q12 SIMON PRN Reason: Protocol Stop: 04/28/16 10:01 Last Admin: 04/24/16 22:49 Dose: 100 mls/hr Vasopressin 20 units/ Sodium (Chloride) 101 mls @ 9.09 mls/hr IV .Q11H7M SIMON; 0.03 U/MIN PRN Reason: Protocol Last Admin: 04/25/16 06:52 Dose: 9.09 mls/hr Heparin Sodium/Sodium Chloride (Heparin 63200 Units/250ml 1/2 Normal Saline) 250 mls @ 14.158 mls/hr IV .[id number] PRN; Protocol; 18 UNITS/KG/HR PRN Reason: ADJUST RATE PER PROTOCOL Last Admin: 04/24/16 11:28 Dose: 10.225 mls/hr Norepinephrine Bitartrate 16 (mg/ Dextrose) 1,016 mls @ 95.25 mls/hr IV .[id number] PRN; Protocol; 25 MCG/MIN PRN Reason: TITRATE PER MD ORDER Last Titration: 04/25/16 03:45 Dose: 4 mcg/min Metronidazole (Flagyl) 100 mls @ 100 mls/hr IVPB Q8 SIMON PRN Reason: Protocol Last Admin: 04/25/16 05:24 Dose: 100 mls/hr Dobutamine HCl/Dextrose (Dobutamine/Dextrose 5% 500mg/250ml) 250 mls @ 6.017 mls/hr IV .Q24H PRN; Protocol; 2.5 MCG/KG/MIN PRN Reason: TITRATE PER PROTOCOL Last Admin: 04/24/16 16:57 Dose: 6.017 mls/hr Lactulose (Enulose) 20 gm PO DAILY SIMON Last Admin: 04/24/16 11:08 Dose: 20 gm Lorazepam (Ativan) 2 mg IVP Q2H PRN; Protocol PRN Reason: Agitation Last Admin: 04/25/16 09:57 Dose: 2 mg Midodrine (Proamatine) 10 mg PO Q12H SIMON Last Admin: 04/24/16 22:11 Dose: 10 mg Pantoprazole Sodium (Protonix Inj) 40 mg IVP DAILY [facility] Last Admin: 04/24/16 11:09 Dose: 40 mg Vancomycin HCl (Vancocin 25 Mg/Ml (Oral Use)) 125 mg PO QID SIMON PRN Reason: Protocol Last Admin: 04/25/16 09:16 Dose: Not Given - Labs Labs: 04/25/16 05:00 04/25/16 05:00 PT 16.7 Seconds (9.9-11.8) H 04/24/16 06:30 INR 1.55 (0.93-1.08) H 04/24/16 06:30 APTT 73.2 Seconds (23.7-30.8) H* 04/25/16 05:00 - Constitutional Appears: Non-toxic, No Acute Distress - Head Exam Head Exam: ATRAUMATIC, NORMAL INSPECTION, NORMOCEPHALIC - ENT Exam ENT Exam: Mucous Membranes Moist, Normal Exam - Neck Exam Neck Exam: Normal Inspection. absent: Lymphadenopathy - Respiratory Exam Respiratory Exam: Clear to Ausculation Bilateral, NORMAL BREATHING PATTERN. absent: Rhonchi, Wheezes - Cardiovascular Exam Cardiovascular Exam: RRR, +S1, +S2 - GI/Abdominal Exam GI & Abdominal Exam: Soft. absent: Guarding, Rigid, Tenderness - Exam Additional comments: Right groin femoral line in place - Extremities Exam Extremities Exam: Normal Inspection. absent: Pedal Edema - Neurological Exam Neurological Exam: Alert, Awake, Oriented x3 - Psychiatric Exam Psychiatric exam: Normal Affect, Normal Mood - Skin Skin Exam: Intact, Normal Color, Warm Assessment and Plan - Assessment and Plan (Free Text) Plan: 50 y/o male with PMH of ESRD on HD (T,TH,S) cirrhosis, hep C, alcohol abuse, and polysubstance abuse with cocain and heroin use presented with hypoxemic respiratory failure and septic shock secondary to klebsiella pneumonia and SBP. Pt extubated successfully yesterday. Pt remains on norepinephrine, vasopressin, and dobutamine, although trying to be weaned at this time. Pt undergoing HD again today. Pt had lactulose decreased and will continue with abx and albumin. Pt noted to have continuing decrease of platelets over last 4 days, may be due to heparin drip. Will discuss treatment options with ICU team. Plan will be as per ICU team. Neuro - intially presented with AMS but AAO x3 at this time. - Continue lactulose for possible hepatic encephalopathy cardio - levophed, vasopresson, and dobutamine, attempting to be weaned - midodrine BID - echo: EF of 50% with severe pulmonary HTN and bioprosthesis valve - cardiology following pulm - CTA demonstrated no PE - B/l pleural effusions - repeat cxr showed no pleural effusion or pneumothorax and small left sided effusion - Right sided chest tube on suction with air leak. Output: 300 cc of serosanganous fluid - aspiration precaution, HOB >35 - surgery following GI - lactulose and rifaxmin for empiric treatment for hepatic encephalopathy - advance diet as tolerated - Albumin 1gm/kg - protonix ppx - GI following, IR following Renal - ESRD on HD T,T,S - Extra session of HD today endo - fingerstick q6h - cont to monitor glucose ID - Afebrile, no leukocytosis - septic shock 2/2 aspiration PNA, (+) Klebsiella pna - C Diff Ag positive, continue vancomycin. - blood cx neg after 48 hours - ID following, Dr. Millard Seen, reviewed, and discussed with attending. Gabby, PGY-1 <Elly Flores - Last Filed: 04/25/16 12:49> Objective - Vital Signs/Intake and Output Vital Signs (last 24 hours): Temp Pulse Resp BP Pulse Ox 97.9 F 75 14 134/77 88 L 04/25/16 08:00 04/25/16 10:00 04/25/16 10:00 04/25/16 10:00 04/25/16 10:00 Intake and Output: 04/25/16 04/25/16 06:59 18:59 Intake Total 1212 Output Total 280 Balance 932 - Medications Medications: Current Medications Albumin Human (Albumin Human 25% (12.5 Gm/50 Ml)) 12.5 gm IV Q1H SIMON Stop: 04/25/16 13:01 Last Admin: 04/25/16 12:22 Dose: 12.5 gm Albuterol/Ipratropium (Duoneb 3 Mg/0.5 Mg (3 Ml) Ud) 3 ml IH [id number] PRN PRN Reason: Shortness of Breath Last Admin: 04/24/16 07:38 Dose: 3 ml Calcium Acetate (Phoslo) 667 mg PO WM SIMON Last Admin: 04/25/16 08:06 Dose: 667 mg Famotidine (Pepcid) 40 mg PO HS SIMON Hydrocortisone Sodium Succinate (Solu-Cortef) 50 mg IVP Q6H SIMON Last Admin: 04/25/16 08:06 Dose: 50 mg Propofol (Diprivan) 100 mls @ 2.36 mls/hr IV .Q24H PRN; Protocol; 5 MCG/KG/MIN PRN Reason: TITRATE PER MD ORDER Last Titration: 04/21/16 08:25 Dose: 0 mcg/kg/min Meropenem 500 mg/ Sodium (Chloride) 100 mls @ 100 mls/hr IVPB Q12 SIMON PRN Reason: Protocol Stop: 04/28/16 10:01 Last Admin: 04/24/16 22:49 Dose: 100 mls/hr Vasopressin 20 units/ Sodium (Chloride) 101 mls @ 9.09 mls/hr IV .Q11H7M SIMON; 0.03 U/MIN PRN Reason: Protocol Last Admin: 04/25/16 06:52 Dose: 9.09 mls/hr Heparin Sodium/Sodium Chloride (Heparin 43220 Units/250ml 1/2 Normal Saline) 250 mls @ 14.158 mls/hr IV .[id number] PRN; Protocol; 18 UNITS/KG/HR PRN Reason: ADJUST RATE PER PROTOCOL Last Admin: 04/24/16 11:28 Dose: 10.225 mls/hr Norepinephrine Bitartrate 16 (mg/ Dextrose) 1,016 mls @ 95.25 mls/hr IV .[id number] PRN; Protocol; 25 MCG/MIN PRN Reason: TITRATE PER MD ORDER Last Titration: 04/25/16 09:45 Dose: 6 mcg/min Metronidazole (Flagyl) 100 mls @ 100 mls/hr IVPB Q8 SIMON PRN Reason: Protocol Last Admin: 04/25/16 05:24 Dose: 100 mls/hr Dobutamine HCl/Dextrose (Dobutamine/Dextrose 5% 500mg/250ml) 250 mls @ 6.017 mls/hr IV .Q24H PRN; Protocol; 2.5 MCG/KG/MIN PRN Reason: TITRATE PER PROTOCOL Last Admin: 04/24/16 16:57 Dose: 6.017 mls/hr Lactulose (Enulose) 20 gm PO DAILY SIMON Last Admin: 04/24/16 11:08 Dose: 20 gm Lorazepam (Ativan) 2 mg IVP Q2H PRN; Protocol PRN Reason: Agitation Last Admin: 04/25/16 09:57 Dose: 2 mg Midodrine (Proamatine) 10 mg PO Q12H SIMON Last Admin: 04/24/16 22:11 Dose: 10 mg Vancomycin HCl (Vancocin 25 Mg/Ml (Oral Use)) 125 mg PO QID SIMON PRN Reason: Protocol Last Admin: 04/25/16 09:16 Dose: Not Given - Labs Labs: 04/25/16 05:00 04/25/16 05:00 PT 16.7 Seconds (9.9-11.8) H 04/24/16 06:30 INR 1.55 (0.93-1.08) H 04/24/16 06:30 APTT 73.2 Seconds (23.7-30.8) H* 04/25/16 05:00 Attending/Attestation - Attestation I have personally seen and examined this patient.: Yes I have fully participated in the care of the patient.: Yes I have reviewed all pertinent clinical information, including history, physical exam and plan: Yes Notes (Text): 04/25/16 12:42 50 year old male with past medical history of CAD s/p CABG, alcohol abuse, substance abuse, chronic liver disease and ESRD who presented with altered mental status, sepsis and hypoxic respiratory failure s/p intubation. He was found to have aspiration pneumonia (sputum culture growing Klebsiella) and bilateral pleural effusion s/p chest tube. He is s/p extubation. He is being weaned off pressors and oxygen. His mental status has improved. Continue with chest tube care as per surgery and antibiotics as per ID. He has worsening thrombocytopenia who which we will request hematology evaluation. He is being followed by GI for SBP/ascites and by nephrology for ESRD. He is on heparin drip for DVT of left IJV. He is on antibiotics for C Diff diarrhea. Elly Flores MD Hospitalist.
[2016-04-25] MEDS: Heparin25000 units/250ml 1/2NS 250 ML IV PRN (13:14)
[2016-04-25] MEDS: Meropenem 500 MG in Sodium Chloride 0.9% 100 ML IVPB SCH ×2 (13:17→22:43)
[2016-04-25 16:44] LABS: LDH PLEURAL FLUID 126 U/L (())
[2016-04-25] MEDS: DOBUTamine 500mg/250ml D5W 250 ML IV PRN (17:09)
--- NOTE | 2016-04-26 01:19 | CON ---
DATE: 04/25/2016 REASON FOR CONSULTATION: Progressive thrombocytopenia and background history of sepsis. HISTORY OF PRESENT ILLNESS: This is a 50-year-old male with history of coronary artery disease, stat us post coronary artery bypass surgery, history of chronic hepatitis C, end-stage renal disease on he modialysis Tuesdays, and Saturdays, history of polysubstance abuse, was admitted to the ICU with altered mental status, currently in septic shock with multiple infectious etiologies, septic sh ock is secondary to Klebsiella pneumoniae, spontaneous bacterial peritonitis and Clostridium difficil e diarrhea. The patient also has had severe decompensated cirrhosis with ascites, he has spontaneous bacterial peritonitis, pneumonia Klebsiella, ESBL, Clostridium difficile infection, left inferior in ternal jugular vein DVT, which appears to be old, end-stage renal disease on dialysis and also has a chest tube as well for drainage of the pleural fluid. Currently, the patient is on Levophed, vasopre ssin and dobutamine, lactulose 20 mg p.o. daily, on broad spectrum antibiotics with IV Flagyl, merope nem, p.o. vancomycin with ID following, on contact isolation for Klebsiella, ESBL and C. diff and was extubated and is on high flow oxygen at this time. We are asked to see the patient because of the p latelet count gradually dropping from 147 to 47,000 today. SUBJECTIVE: The patient is seen and examined by the bedside. The patient admits to some discomfort from the central line in the right groin and the chest tube insertion site in the right thorax. The patient had some loose bowel stools, and bowel movements yesterday, but no fevers, no chills, or is t here any significant abdominal pain. MEDICATIONS: The patient's medications were reviewed. He is on albumin 12.5 grams IV q. 1 hour. He is on DuoNeb 3 mL inhaled q. 4 hours. He is on PhosLo 667 mg p.o. daily. He is on hydrocortisone, Solu-Cortef 50 mg IV q. 6 hours. He is on Diprivan, which has been stopped. He is on meropenem 500 mg IV piggyback q. 12 hours, vasopressin IV. He is on heparin for dialysis and to adjust for protoco l he is on heparin infusion. He is on norepinephrine bitartrate, he is on Flagyl IV q. 8 hours. He is on dobutamine for his cardiac failure. He is on norepinephrine. He is on Flagyl IV piggyback q. 8 hours. He is on lactulose. He is on Ativan 2 mg IV q. 2 hours p.r.n. He is on midodrine 10 mg p. o. q. 12 hours, morphine sulfate 2 mg IV q. 4 hours p.r.n., pantoprazole 40 mg daily and he is on als o oral vancomycin 125 mg q.i.d. LABORATORY DATA: Reveals a white count of 8.7, hemoglobin 10.9, hematocrit 32.8, platelet count of 4 7,000. Review of his smear reveals anisocytosis, poikilocytosis, sarah cells elliptocytes, macro-oval ocytes as well. Absolute platelet count appears to be decreased on the peripheral smear. Sodium is 129, K is 3.7, chloride 98, CO2 of 25, BUN 34, creatinine 4.1, glucose is 111. PT 16.7 with an INR o f 1.5. PTT is 73.2. PHYSICAL EXAMINATION: VITAL SIGNS: The patient is noted to have a T-max of 98, pulse of 69, respirations 16, blood pressur e is 101/48, pulse ox is 91. GENERAL: The patient appears to be nontoxic looking, in no acute distress. HEENT: Conjunctivae pale. Sclerae are anicteric. Pupils are equally reactive to light and accommod ation. Examination of the oropharynx reveals no oropharyngeal lesions. Chest: Clear to auscultation. Bilateral rhonchi and wheezes heard. HEART: Reveals S1, S2 to be normal. No gallop or murmur is heard. ABDOMEN: Soft. The patient has a reducible umbilical hernia. Normal bowel sounds are heard distend ed, firm, rigidity and tenderness. No organomegaly is discernible. EXTREMITIES: Reveals no significant pedal edema. NEUROLOGIC: The patient is awake, alert, and oriented x 3, without any physical impediments or weakn esses or focal findings. PSYCHIATRIC: Normal affect. SKIN: Warm and dry. Review of labs from the past few days reveals the following: His platelet count, which started out a t 101,000 on 04/21, has been gradually shifting down, it was 86 on 04/24 and today on 04/25 it is 47, 000 and this is of concern to us in the review of the medicines. Question is the drop in the platele t count is of concern to us. I have requested for heparin-induced antibodies at this time. I will s peak to Dr. Josh Gayle as to the significance of the DVT in the right jugular vein, whether it is an organized clot and whether this is from heparin-induced thrombocytopenia as opposed to multifactoria l causes for the thrombocytopenia. We may have to think about switching him to a different drug such as one of the drugs that could be used for heparin-induced thrombocytopenia. We will check with Dr. Josh Gayle as well regarding what our treatment plan should be. I will discuss with the intensivis t as well to discuss the findings of the thrombocytopenia that concerns, although he is managing the case. Again we will discuss with the snaker driving horses and the primary doctor, Dr. Flores as well. Esha Latham MD cc: [id number] TT: 04/26/2016 01:18:40 Confirmation # [id number] Dictation # [id number] tn
[2016-04-26] MEDS: metroNIDAZOLE IV 500 mg/100 ml 100 ML IVPB SCH ×3 (06:48→21:40)
--- NOTE | 2016-04-26 07:09 | CP.PCM.PN ---
Subjective - Date & Time of Evaluation Date of Evaluation: 04/26/16 Time of Evaluation: 07:06 - Subjective Subjective: Surgery: Dr. Lowery Pt seen and examined. Per nursing no acute events overnight. Still on pressors. Mild discomfort at CT site. No SOB Objective - Vital Signs/Intake and Output Vital Signs (last 24 hours): Temp Pulse Resp BP Pulse Ox 97.7 F 104 H 36 H 98/48 L 87 L 04/25/16 16:00 04/26/16 01:01 04/26/16 01:01 04/26/16 01:01 04/26/16 01:01 - Medications Medications: Current Medications Albuterol/Ipratropium (Duoneb 3 Mg/0.5 Mg (3 Ml) Ud) 3 ml IH [id number] PRN PRN Reason: Shortness of Breath Last Admin: 04/24/16 07:38 Dose: 3 ml Calcium Acetate (Phoslo) 667 mg PO WM SIMON Last Admin: 04/25/16 17:05 Dose: 667 mg Famotidine (Pepcid) 40 mg PO HS SIMON Last Admin: 04/25/16 22:46 Dose: 40 mg Hydrocortisone Sodium Succinate (Solu-Cortef) 50 mg IVP Q6H SIMON Last Admin: 04/26/16 02:45 Dose: 50 mg Propofol (Diprivan) 100 mls @ 2.36 mls/hr IV .Q24H PRN; Protocol; 5 MCG/KG/MIN PRN Reason: TITRATE PER MD ORDER Last Titration: 04/21/16 08:25 Dose: 0 mcg/kg/min Meropenem 500 mg/ Sodium (Chloride) 100 mls @ 100 mls/hr IVPB Q12 SIMON PRN Reason: Protocol Stop: 04/28/16 10:01 Last Admin: 04/25/16 22:43 Dose: 100 mls/hr Heparin Sodium/Sodium Chloride (Heparin 14600 Units/250ml 1/2 Normal Saline) 250 mls @ 14.158 mls/hr IV .[id number] PRN; Protocol; 18 UNITS/KG/HR PRN Reason: ADJUST RATE PER PROTOCOL Last Admin: 04/25/16 13:14 Dose: 10.225 mls/hr Metronidazole (Flagyl) 100 mls @ 100 mls/hr IVPB Q8 SIMON PRN Reason: Protocol Last Admin: 04/26/16 06:48 Dose: 100 mls/hr Dobutamine HCl/Dextrose (Dobutamine/Dextrose 5% 500mg/250ml) 250 mls @ 6.017 mls/hr IV .Q24H PRN; Protocol; 2.5 MCG/KG/MIN PRN Reason: TITRATE PER PROTOCOL Last Admin: 04/25/16 17:09 Dose: 6.017 mls/hr Vasopressin 20 units/ Sodium (Chloride) 101 mls @ 9.09 mls/hr IV .Q11H7M SIMON; 0.03 U/MIN PRN Reason: Protocol Last Admin: 04/26/16 06:33 Dose: 9.09 mls/hr Norepinephrine Bitartrate 4 mg (/ Dextrose) 254 mls @ 9 mls/hr IV .Q24H PRN; Protocol PRN Reason: TITRATE PER MD ORDER Last Titration: 04/25/16 18:59 Dose: 2 mcg/min Lactulose (Enulose) 20 gm PO DAILY SIMON Last Admin: 04/25/16 13:13 Dose: 20 gm Lorazepam (Ativan) 2 mg IVP Q2H PRN; Protocol PRN Reason: Agitation Last Admin: 04/26/16 04:14 Dose: 2 mg Midodrine (Proamatine) 10 mg PO Q12H SIMON Last Admin: 04/25/16 22:46 Dose: 10 mg Vancomycin HCl (Vancocin 25 Mg/Ml (Oral Use)) 125 mg PO QID SIMON PRN Reason: Protocol Last Admin: 04/25/16 22:45 Dose: 125 mg - Labs Labs: 04/25/16 05:00 04/25/16 05:00 PT 16.7 Seconds (9.9-11.8) H 04/24/16 06:30 INR 1.55 (0.93-1.08) H 04/24/16 06:30 APTT 73.2 Seconds (23.7-30.8) H* 04/25/16 05:00 - Constitutional Appears: Older Than Stated Age, Chronically Ill - Head Exam Head Exam: ATRAUMATIC, NORMOCEPHALIC - Eye Exam Eye Exam: EOMI - ENT Exam ENT Exam: Mucous Membranes Moist - Respiratory Exam Respiratory Exam: NORMAL BREATHING PATTERN. absent: Accessory Muscle Use, Respiratory Distress Additional comments: R side CT in place - GI/Abdominal Exam GI & Abdominal Exam: Soft. absent: Tenderness - Extremities Exam Extremities Exam: absent: Calf Tenderness, Pedal Edema - Neurological Exam Neurological Exam: Alert, Awake, Oriented x3 - Psychiatric Exam Psychiatric exam: Normal Affect, Normal Mood Assessment and Plan - Assessment and Plan (Free Text) Assessment: 50M s/p chest tube placement POD#5 - CT: 290/cc 24hr serosang, tidling, no air leaks - CXR stable, c/w daily cxr - dressing changes daily - will d/w attending Yusufitis Pgy2
--- NOTE | 2016-04-26 08:14 | RAD ---
HISTORY: Comparison. Technique: Single view portable semi erect @ 05:25. COMPARISON: 04/24/2016. FINDINGS: LUNGS: Improving infiltrates bilaterally. PLEURA: Decrease in left pleural effusion. Stable position of chest tube in the right pleural space. No pneumothorax. CARDIOVASCULAR: No significant interval change compared to the prior examination(s). Venous access catheter in stable, satisfactory position. OSSEOUS STRUCTURES: No significant abnormalities. VISUALIZED UPPER ABDOMEN: Normal. OTHER FINDINGS: None. IMPRESSION: Improving bilateral infiltrates. Otherwise stable examination.
--- NOTE | 2016-04-26 08:31 | CP.PCM.PN ---
<GoldieMegha - Last Filed: 04/26/16 08:28> Subjective - Date & Time of Evaluation Date of Evaluation: 04/26/16 Time of Evaluation: 08:28 - Subjective Subjective: Gastroenterology Fellow/PGY4 Progress Note Patient oriented to person, place, and time. Denies abdominal pain. Admit sto four loose stools overnight. Tolerating regular diet. A 12-point review of systems negative except for as above. Objective - Vital Signs/Intake and Output Vital Signs (last 24 hours): Temp Pulse Resp BP Pulse Ox 97.7 F 104 H 36 H 98/48 L 87 L 04/25/16 16:00 04/26/16 01:01 04/26/16 01:01 04/26/16 01:01 04/26/16 01:01 - Medications Medications: Current Medications Albuterol/Ipratropium (Duoneb 3 Mg/0.5 Mg (3 Ml) Ud) 3 ml IH [id number] PRN PRN Reason: Shortness of Breath Last Admin: 04/24/16 07:38 Dose: 3 ml Calcium Acetate (Phoslo) 667 mg PO WM SIMON Last Admin: 04/25/16 17:05 Dose: 667 mg Famotidine (Pepcid) 40 mg PO HS SIMON Last Admin: 04/25/16 22:46 Dose: 40 mg Hydrocortisone Sodium Succinate (Solu-Cortef) 50 mg IVP Q6H SIMON Last Admin: 04/26/16 02:45 Dose: 50 mg Propofol (Diprivan) 100 mls @ 2.36 mls/hr IV .Q24H PRN; Protocol; 5 MCG/KG/MIN PRN Reason: TITRATE PER MD ORDER Last Titration: 04/21/16 08:25 Dose: 0 mcg/kg/min Meropenem 500 mg/ Sodium (Chloride) 100 mls @ 100 mls/hr IVPB Q12 SIMON PRN Reason: Protocol Stop: 04/28/16 10:01 Last Admin: 04/25/16 22:43 Dose: 100 mls/hr Heparin Sodium/Sodium Chloride (Heparin 39615 Units/250ml 1/2 Normal Saline) 250 mls @ 14.158 mls/hr IV .[id number] PRN; Protocol; 18 UNITS/KG/HR PRN Reason: ADJUST RATE PER PROTOCOL Last Admin: 04/25/16 13:14 Dose: 10.225 mls/hr Metronidazole (Flagyl) 100 mls @ 100 mls/hr IVPB Q8 SIMON PRN Reason: Protocol Last Admin: 04/26/16 06:48 Dose: 100 mls/hr Dobutamine HCl/Dextrose (Dobutamine/Dextrose 5% 500mg/250ml) 250 mls @ 6.017 mls/hr IV .Q24H PRN; Protocol; 2.5 MCG/KG/MIN PRN Reason: TITRATE PER PROTOCOL Last Admin: 04/25/16 17:09 Dose: 6.017 mls/hr Vasopressin 20 units/ Sodium (Chloride) 101 mls @ 9.09 mls/hr IV .Q11H7M SIMON; 0.03 U/MIN PRN Reason: Protocol Last Admin: 04/26/16 06:33 Dose: 9.09 mls/hr Norepinephrine Bitartrate 4 mg (/ Dextrose) 254 mls @ 9 mls/hr IV .Q24H PRN; Protocol PRN Reason: TITRATE PER MD ORDER Last Titration: 04/25/16 18:59 Dose: 2 mcg/min Lactulose (Enulose) 20 gm PO DAILY SIMON Last Admin: 04/25/16 13:13 Dose: 20 gm Lorazepam (Ativan) 2 mg IVP Q2H PRN; Protocol PRN Reason: Agitation Last Admin: 04/26/16 04:14 Dose: 2 mg Midodrine (Proamatine) 10 mg PO Q12H SIMON Last Admin: 04/25/16 22:46 Dose: 10 mg Vancomycin HCl (Vancocin 25 Mg/Ml (Oral Use)) 125 mg PO QID SIMON PRN Reason: Protocol Last Admin: 04/25/16 22:45 Dose: 125 mg - Labs Labs: 04/25/16 05:00 04/25/16 05:00 PT 16.7 Seconds (9.9-11.8) H 04/24/16 06:30 INR 1.55 (0.93-1.08) H 04/24/16 06:30 APTT 73.2 Seconds (23.7-30.8) H* 04/25/16 05:00 - Constitutional Appears: Non-toxic, No Acute Distress - Head Exam Head Exam: ATRAUMATIC, NORMOCEPHALIC - Eye Exam Eye Exam: EOMI, PERRL Pupil Exam: PERRL. absent: Miosis, Mydriatic - ENT Exam ENT Exam: Mucous Membranes Moist, Normal Oropharynx - Neck Exam Neck Exam: Full ROM, Normal Inspection - Respiratory Exam Respiratory Exam: Clear to Ausculation Bilateral. absent: Rales, Rhonchi, Wheezes - Cardiovascular Exam Cardiovascular Exam: RRR, +S1, +S2. absent: Gallop, Rubs - GI/Abdominal Exam GI & Abdominal Exam: Soft, Hernia, Normal Bowel Sounds. absent: Distended, Firm , Guarding, Rigid, Tenderness, Organomegaly, Rebound Additional comments: reducible umbilical hernia - Extremities Exam Extremities Exam: Pedal Edema Additional comments: chronic discoloration of lower extremities from knees down - Neurological Exam Neurological Exam: Alert, Awake, Oriented x3 - Psychiatric Exam Psychiatric exam: Normal Affect, Normal Mood - Skin Skin Exam: Dry, Intact, Normal Color, Warm Assessment and Plan - Assessment and Plan (Free Text) Assessment: 50 tear old male with history of CAD s/p CABG, ESRD on HD TTS, polysubstance abuse, and chronic Hepatitis C presenting with altered mental status. Active treatment of septic shock secondary to multiple infectious sources. Septic shock 2/2 SBP, Cdiff colitis, Klebsiella pneumonia Ascites 2/2 Decompensated Hepatitis C cirrhosis SBP (spontaneous bacterial peritonitis) Left internal jugular vein subacute thrombus Pleural effusion s/p Right chest tube (04/21) ESRD on HD CAD s/p CABG Polysubstance abuse Plan: >refractory hypotension- on Levophed, Vasopressin, Dobutamine, midodrine >continue Lactulose 20g PO daily, titrate to 2-3 BMs per day >continue broad spectrum antibiotics-Flagyl IV, Merrem, Vancomycin PO, ID managing >on Heparin drip for thrombus >chest tube-300cc in last 24 hours, surgery managing >received albumin yesterday per SBP day 3 protocol >tolerating diet >further recommendations based on clinical course <Ezekiel Quiroz - Last Filed: 04/26/16 10:28> Objective - Vital Signs/Intake and Output Vital Signs (last 24 hours): Temp Pulse Resp BP Pulse Ox 97.7 F 104 H 36 H 98/48 L 87 L 04/25/16 16:00 04/26/16 01:01 04/26/16 01:01 04/26/16 01:01 04/26/16 01:01 - Medications Medications: Current Medications Albuterol/Ipratropium (Duoneb 3 Mg/0.5 Mg (3 Ml) Ud) 3 ml IH [id number] PRN PRN Reason: Shortness of Breath Last Admin: 04/24/16 07:38 Dose: 3 ml Calcium Acetate (Phoslo) 667 mg PO WM SIMON Last Admin: 04/26/16 08:57 Dose: 667 mg Famotidine (Pepcid) 40 mg PO HS SIMON Last Admin: 04/25/16 22:46 Dose: 40 mg Hydrocortisone Sodium Succinate (Solu-Cortef) 50 mg IVP Q6H SIMON Last Admin: 04/26/16 08:57 Dose: 50 mg Propofol (Diprivan) 100 mls @ 2.36 mls/hr IV .Q24H PRN; Protocol; 5 MCG/KG/MIN PRN Reason: TITRATE PER MD ORDER Last Titration: 04/21/16 08:25 Dose: 0 mcg/kg/min Meropenem 500 mg/ Sodium (Chloride) 100 mls @ 100 mls/hr IVPB Q12 SIMON PRN Reason: Protocol Stop: 04/28/16 10:01 Last Admin: 04/26/16 10:08 Dose: 100 mls/hr Heparin Sodium/Sodium Chloride (Heparin 67345 Units/250ml 1/2 Normal Saline) 250 mls @ 14.158 mls/hr IV .[id number] PRN; Protocol; 18 UNITS/KG/HR PRN Reason: ADJUST RATE PER PROTOCOL Last Admin: 04/25/16 13:14 Dose: 10.225 mls/hr Metronidazole (Flagyl) 100 mls @ 100 mls/hr IVPB Q8 SIMON PRN Reason: Protocol Last Admin: 04/26/16 06:48 Dose: 100 mls/hr Dobutamine HCl/Dextrose (Dobutamine/Dextrose 5% 500mg/250ml) 250 mls @ 6.017 mls/hr IV .Q24H PRN; Protocol; 2.5 MCG/KG/MIN PRN Reason: TITRATE PER PROTOCOL Last Admin: 04/25/16 17:09 Dose: 6.017 mls/hr Vasopressin 20 units/ Sodium (Chloride) 101 mls @ 9.09 mls/hr IV .Q11H7M SIMON; 0.03 U/MIN PRN Reason: Protocol Last Admin: 04/26/16 06:33 Dose: 9.09 mls/hr Norepinephrine Bitartrate 4 mg (/ Dextrose) 254 mls @ 9 mls/hr IV .Q24H PRN; Protocol PRN Reason: TITRATE PER MD ORDER Last Titration: 04/25/16 18:59 Dose: 2 mcg/min Lactulose (Enulose) 20 gm PO DAILY SIMON Last Admin: 04/26/16 10:07 Dose: 20 gm Lorazepam (Ativan) 2 mg IVP Q2H PRN; Protocol PRN Reason: Agitation Last Admin: 04/26/16 04:14 Dose: 2 mg Midodrine (Proamatine) 10 mg PO Q12H SIMON Last Admin: 04/26/16 10:07 Dose: 10 mg Vancomycin HCl (Vancocin 25 Mg/Ml (Oral Use)) 125 mg PO QID SIMON PRN Reason: Protocol Last Admin: 04/26/16 10:07 Dose: 125 mg - Labs Labs: 04/25/16 05:00 04/25/16 05:00 PT 16.7 Seconds (9.9-11.8) H 04/24/16 06:30 INR 1.55 (0.93-1.08) H 04/24/16 06:30 APTT 70.6 Seconds (23.7-30.8) H* 04/26/16 07:57 Attending/Attestation - Attestation I have personally seen and examined this patient.: Yes I have fully participated in the care of the patient.: Yes I have reviewed all pertinent clinical information, including history, physical exam and plan: Yes Notes (Text): 04/26/16 10:27 50 year old male with h/o CAD s/p CABG, chronic hepatitis C, ESRD on HD, polysubstance abuse including current heroin use admitted with altered mental status. 1. Altered mental status 2. Ascites 3. SBP 4. Chronic hepatitis C 5. Clostridium difficile diarrhea Plan: -no definite diagnosis of cirrhosis on imaging, but he does have thrombocytopenia, chronic hepatitis c, prior history of EtOH abuse, and high SAAG ascites in the past -has severe pneumonia and sepsis, on pressor support -weaned off vent and respiratory status more stable -pressors are being weaned -he has SBP -he is on antibiotics -tolerating diet -mental status significantly improved -continue lactulose and rifaxamin -recommend broad spectrum IV antibiotics -supportive care -will sign off at this time
[2016-04-26] MEDS: Vancomycin 25 MG/ML PO SCH ×4 (10:07→21:40)
[2016-04-26] MEDS: Meropenem 500 MG in Sodium Chloride 0.9% 100 ML IVPB SCH ×2 (10:08→21:41)
--- NOTE | 2016-04-26 10:18 | PN ---
DATE: 04/25/2016 SUBJECTIVE: The patient was seen in the intensive care unit. He is awake, alert and off the ventila tor. When I saw him, he had a right-sided chest tube in place. He was on Levophed, vasopressin as w ell as dobutamine and was also receiving heparin infusion. He also had a right-sided chest tube in [facility]. He denied any complaints, but appeared to be somewhat dyspneic. OBJECTIVE: VITAL SIGNS: Blood pressure is 103/61, minimum blood pressure in the last 24-hour period is approxim ately around 87/32 with a maximum of 134/77. Heart rate is 78, although it has ranged from the 70s t o as high as 96, but he did have a brief ____ to 141 beats per minute. Oral temperature 97.7 where the patient has been afebrile. Respiratory rate is 20, but has ranged from 18-33 breaths per minute. Last 24-hour period oxygen saturation 91%, but has ranged from 88-95% on 2 liters nasal cannula. I 's and O's in the last 24-hour period 2400/2300. Of note, the patient did have hemodialysis on , on account of the anticipated snow storm on Monday. HEENT: The patient was normocephalic and atraumatic. He had payne appearance; however, he was anicte emiliana on exam and conjunctivae were not pale. He did have mild jugular venous distention. He also a r ight IJ PermCath in place. CHEST: Lung paez were auscultated anteriorly and were clear without any rales, rhonchi or wheezing . He did have a right-sided chest tube in place. CARDIAC: Had a regular rate and rhythm without any rubs or gallops. ABDOMEN: Soft, distended with ascites, but nontender and there was no rebound, guarding or rigidity. He did have ascites present, however. EXTREMITIES: Had 2 to 3+ edema distal to his sacrum. NEUROLOGIC: He was awake, alert and conversational. VASCULAR: He had payne issue to his skin. LABORATORY STUDIES: White count is 8.7, H and H is 10.9/32.8 with a platelet count of 47,000. There are 89% neutrophils, 4% lymphocytes, 7% monocytes. Sodium is 129, potassium is 3.7, chloride 98, bi carbonate 25, BUN/creatinine 34/4.1 with glucose of 111, calcium was 6.8, but after correcting the al bumin to 1.8, it corrected to 8.4, total bilirubin is 1.0, ascites had a white count of 25,000, of wh ich 72% were lymphocytes was clear. Stool was noted to be positive for C diff antigen. IMPRESSION AND PLAN: Mr. Guerrero Tovar is a 50-year-old gentleman with history of alcohol abuse, hep atitis C, history of intravenous cocaine and heroin abuse, cirrhosis, end-stage renal disease on hemo dialysis every Monday, , Monday via right internal jugular PermCath at [facility] under the care of another death surveys coder, originally brought to [facility] after being found leth argic and hypothermic with numerous bags of heroin around him. His mentation improved following 2 do ses of Narcan. He is in septic shock secondary to aspiration pneumonia and is currently pressor depe ndent. 1. The patient had hemodialysis today instead of tomorrow on account of inclement weather anticipated for Monday. 2. Given the fact that he is cirrhotic, he is hypotensive at baseline which limits how much of volume could be removed with each dialysis. It also implies that in titrating his pressors, we do not need to attain a mean arterial pressure of 65 mmHg. 3. When I saw the patient was on Levophed, vasopressin and dobutamine which were attempted to be wean ed off. Echocardiogram did reveal preserved LV function with an ejection fraction of 50%. He did ang[place] ve severe pulmonary hypertension. CT angiogram did not demonstrate any evidence of pulmonary embolis m. 4. The patient has a right-sided chest tube in place for which Surgery is following. 5. For empiric treatment of hepatic encephalopathy, the patient is on lactulose as well as rifaximin. 6. Given the fact that the patient is on pressors, he is also on hydrocortisone as well. 7. For Clostridium difficile colitis, he is currently receiving vancomycin orally and is on intraveno us Flagyl. 8. For aspiration pneumonia, he is also on meropenem. 9. His next dialysis after Monday will be either on Monday or . We will see how he does. 10. Upon discharge, patient should enter a sobriety program to minimize the chances of relapse into h eroin dependence. 11. The patient is noted to have a deep vein thrombosis in the right internal jugular vein. He had b een on heparin and thus there is a concern about heparin-induced thrombocytopenia and discussions are underway to see whether or not the patient would benefit from another agent instead. 12. For hyperphosphatemia, continue PhosLo which will both decrease his phosphorous and reciprocally increase his calcium. Review of systems, past medical history, social history and family history were all reviewed and ther e were no new changes. More than 35 minutes were spent in the care of this ICU patient on this notes for 04/25/2016. Jose Gonzalez MD cc: [id number] TT: 04/26/2016 07:22:05 Confirmation # [id number] Dictation # [id number] tn 04/26/2016 09:18:00
[2016-04-26 11:04] LABS: ADD MANUAL DIFF? NO; EOS % 0.2 % (1.5-5.0); GRAN # 5.44 (1.4-6.5); GRAN % 86.7 % (50.0-68.0); HEMATOCRIT 30.6 % (42.0-52.0); LYMPH # 0.4 (1.2-3.4); LYMPH % 6.2 % (22.0-35.0); MEAN CELL VOLUME 87.4 fL (80.0-105.0); MEAN CORPUSCULAR HEMOGLOBIN 28.9 pg (25.0-35.0); MEAN PLATELET VOLUME 11.5 fl (7.0-11.0); MONO # 0.4 (0.1-0.6); MONO % 6.9 % (1.0-6.0); PLATELET COUNT 47 10^3/uL (120.0-450.0); RED CELL DISTRIBUTION WIDTH 15.8 % (11.5-14.5); WHITE BLOOD COUNT 6.3 10^3/ul (4.5-11.0)
--- NOTE | 2016-04-26 11:43 | CP.PCM.PN ---
<Leonel Pierre - Last Filed: 04/26/16 11:34> Subjective - Date & Time of Evaluation Date of Evaluation: 04/26/16 Time of Evaluation: 11:37 - Subjective Subjective: Pt seen and examined at bedside. Pt is resting comfortably in bed with no complaints at time. No acute events overnight. Pt remains on pressors. Denies CP , SOB, N/V/D, fevers, chills, cough. Objective - Vital Signs/Intake and Output Vital Signs (last 24 hours): Temp Pulse Resp BP Pulse Ox 97.7 F 104 H 36 H 98/48 L 87 L 04/25/16 16:00 04/26/16 01:01 04/26/16 01:01 04/26/16 01:01 04/26/16 01:01 - Medications Medications: Current Medications Albuterol/Ipratropium (Duoneb 3 Mg/0.5 Mg (3 Ml) Ud) 3 ml IH [id number] PRN PRN Reason: Shortness of Breath Last Admin: 04/24/16 07:38 Dose: 3 ml Calcium Acetate (Phoslo) 667 mg PO WM SIMON Last Admin: 04/26/16 08:57 Dose: 667 mg Famotidine (Pepcid) 40 mg PO HS SIMON Last Admin: 04/25/16 22:46 Dose: 40 mg Hydrocortisone Sodium Succinate (Solu-Cortef) 50 mg IVP Q6H SIMON Last Admin: 04/26/16 08:57 Dose: 50 mg Propofol (Diprivan) 100 mls @ 2.36 mls/hr IV .Q24H PRN; Protocol; 5 MCG/KG/MIN PRN Reason: TITRATE PER MD ORDER Last Titration: 04/21/16 08:25 Dose: 0 mcg/kg/min Meropenem 500 mg/ Sodium (Chloride) 100 mls @ 100 mls/hr IVPB Q12 SIMON PRN Reason: Protocol Stop: 04/28/16 10:01 Last Admin: 04/26/16 10:08 Dose: 100 mls/hr Heparin Sodium/Sodium Chloride (Heparin 43987 Units/250ml 1/2 Normal Saline) 250 mls @ 14.158 mls/hr IV .[id number] PRN; Protocol; 18 UNITS/KG/HR PRN Reason: ADJUST RATE PER PROTOCOL Last Admin: 04/25/16 13:14 Dose: 10.225 mls/hr Metronidazole (Flagyl) 100 mls @ 100 mls/hr IVPB Q8 SIMON PRN Reason: Protocol Last Admin: 04/26/16 06:48 Dose: 100 mls/hr Dobutamine HCl/Dextrose (Dobutamine/Dextrose 5% 500mg/250ml) 250 mls @ 6.017 mls/hr IV .Q24H PRN; Protocol; 2.5 MCG/KG/MIN PRN Reason: TITRATE PER PROTOCOL Last Admin: 04/25/16 17:09 Dose: 6.017 mls/hr Vasopressin 20 units/ Sodium (Chloride) 101 mls @ 9.09 mls/hr IV .Q11H7M SIMON; 0.03 U/MIN PRN Reason: Protocol Last Admin: 04/26/16 06:33 Dose: 9.09 mls/hr Norepinephrine Bitartrate 4 mg (/ Dextrose) 254 mls @ 9 mls/hr IV .Q24H PRN; Protocol PRN Reason: TITRATE PER MD ORDER Last Titration: 04/25/16 18:59 Dose: 2 mcg/min Lactulose (Enulose) 20 gm PO DAILY SIMON Last Admin: 04/26/16 10:07 Dose: 20 gm Lorazepam (Ativan) 2 mg IVP Q2H PRN; Protocol PRN Reason: Agitation Last Admin: 04/26/16 04:14 Dose: 2 mg Midodrine (Proamatine) 10 mg PO Q12H SIMON Last Admin: 04/26/16 10:07 Dose: 10 mg Vancomycin HCl (Vancocin 25 Mg/Ml (Oral Use)) 125 mg PO QID SIMON PRN Reason: Protocol Last Admin: 04/26/16 10:07 Dose: 125 mg - Labs Labs: 04/26/16 11:00 04/25/16 05:00 PT 16.7 Seconds (9.9-11.8) H 04/24/16 06:30 INR 1.55 (0.93-1.08) H 04/24/16 06:30 APTT 70.6 Seconds (23.7-30.8) H* 04/26/16 07:57 - Constitutional Appears: Well, No Acute Distress - Head Exam Head Exam: ATRAUMATIC, NORMAL INSPECTION, NORMOCEPHALIC - ENT Exam ENT Exam: Mucous Membranes Moist, Normal Exam - Neck Exam Neck Exam: Normal Inspection. absent: Lymphadenopathy - Respiratory Exam Respiratory Exam: Clear to Ausculation Bilateral, NORMAL BREATHING PATTERN. absent: Rales, Rhonchi, Wheezes Additional comments: Right chest tube in place, 300 cc of serosanguinous drainage over the past 24 hours. - Cardiovascular Exam Cardiovascular Exam: RRR, +S1, +S2 - GI/Abdominal Exam GI & Abdominal Exam: Soft, Normal Bowel Sounds. absent: Guarding, Tenderness - Extremities Exam Extremities Exam: Normal Inspection. absent: Calf Tenderness, Pedal Edema - Neurological Exam Neurological Exam: Alert, Awake, Oriented x3 - Psychiatric Exam Psychiatric exam: Normal Affect, Normal Mood - Skin Skin Exam: Intact, Normal Color, Warm Assessment and Plan - Assessment and Plan (Free Text) Plan: 50 y/o male with PMH of ESRD on HD (T,,S) cirrhosis, hep C, alcohol abuse, and polysubstance abuse with cocain and heroin use presented with hypoxemic respiratory failure and septic shock secondary to klebsiella pneumonia and SBP. Pt resting comfortably on nasal cannula today, with no respiratory distress. Pt remains on norepinephrine, vasopressin, and dobutamine, although trying to be weaned at this time. Pt had lactulose decreased and will continue with abx and albumin. Platelets stable from yesterday, still low. Hem/onc consulted for thrombocytopenia who will speak with Dr. Gayle about the type of upper extremity thrombus and if heparin is warranted at this time. Heparin antibodies are also ordered at this time. Will discuss treatment options with ICU team. Plan will be as per ICU team. Neuro - AAO x3 at this time. - Continue lactulose and rifaximin for possible hepatic encephalopathy cardio - levophed, vasopresson, and dobutamine, attempting to be weaned - midodrine BID - echo: EF of 50% with severe pulmonary HTN and bioprosthesis valve - cardiology following pulm - CTA demonstrated no PE - B/l pleural effusions - CXR from today shows improving b/l infiltrates - Right sided chest tube on suction without air leak. Output: 300 cc of serosanganous fluid - aspiration precaution, HOB >35 - surgery following GI - lactulose and rifaxmin for empiric treatment for hepatic encephalopathy - advance diet as tolerated - Albumin 1gm/kg for SBP - protonix ppx - GI following, IR following Renal - ESRD on HD T,T,S - Maintain euvolemia - Replenish electrolytes as needed endo - fingerstick q6h - cont to monitor glucose ID - Afebrile, no leukocytosis - septic shock 2/2 aspiration PNA, (+) Klebsiella pna - C Diff Ag positive, continue vancomycin. - blood cx neg after 48 hours - ID following, Dr. Millard Seen, reviewed, and discussed with attending. Gabby, PGY-1 <Elly Flores A - Last Filed: 04/26/16 12:25> Objective - Vital Signs/Intake and Output Vital Signs (last 24 hours): Temp Pulse Resp BP Pulse Ox 97.7 F 104 H 36 H 98/48 L 87 L 04/25/16 16:00 04/26/16 01:01 04/26/16 01:01 04/26/16 01:01 04/26/16 01:01 - Medications Medications: Current Medications Albuterol/Ipratropium (Duoneb 3 Mg/0.5 Mg (3 Ml) Ud) 3 ml IH [id number] PRN PRN Reason: Shortness of Breath Last Admin: 04/24/16 07:38 Dose: 3 ml Calcium Acetate (Phoslo) 667 mg PO WM SIMON Last Admin: 04/26/16 08:57 Dose: 667 mg Famotidine (Pepcid) 40 mg PO HS SIMON Last Admin: 04/25/16 22:46 Dose: 40 mg Hydrocortisone Sodium Succinate (Solu-Cortef) 50 mg IVP Q6H SIMON Last Admin: 04/26/16 08:57 Dose: 50 mg Propofol (Diprivan) 100 mls @ 2.36 mls/hr IV .Q24H PRN; Protocol; 5 MCG/KG/MIN PRN Reason: TITRATE PER MD ORDER Last Titration: 04/21/16 08:25 Dose: 0 mcg/kg/min Meropenem 500 mg/ Sodium (Chloride) 100 mls @ 100 mls/hr IVPB Q12 SIMON PRN Reason: Protocol Stop: 04/28/16 10:01 Last Admin: 04/26/16 10:08 Dose: 100 mls/hr Heparin Sodium/Sodium Chloride (Heparin 01676 Units/250ml 1/2 Normal Saline) 250 mls @ 14.158 mls/hr IV .[id number] PRN; Protocol; 18 UNITS/KG/HR PRN Reason: ADJUST RATE PER PROTOCOL Last Admin: 04/25/16 13:14 Dose: 10.225 mls/hr Metronidazole (Flagyl) 100 mls @ 100 mls/hr IVPB Q8 SIMON PRN Reason: Protocol Last Admin: 04/26/16 06:48 Dose: 100 mls/hr Dobutamine HCl/Dextrose (Dobutamine/Dextrose 5% 500mg/250ml) 250 mls @ 6.017 mls/hr IV .Q24H PRN; Protocol; 2.5 MCG/KG/MIN PRN Reason: TITRATE PER PROTOCOL Last Admin: 04/25/16 17:09 Dose: 6.017 mls/hr Vasopressin 20 units/ Sodium (Chloride) 101 mls @ 9.09 mls/hr IV .Q11H7M SIMON; 0.03 U/MIN PRN Reason: Protocol Last Admin: 04/26/16 06:33 Dose: 9.09 mls/hr Norepinephrine Bitartrate 4 mg (/ Dextrose) 254 mls @ 9 mls/hr IV .Q24H PRN; Protocol PRN Reason: TITRATE PER MD ORDER Last Titration: 04/25/16 18:59 Dose: 2 mcg/min Lactulose (Enulose) 20 gm PO DAILY SIMON Last Admin: 04/26/16 10:07 Dose: 20 gm Lorazepam (Ativan) 2 mg IVP Q2H PRN; Protocol PRN Reason: Agitation Last Admin: 04/26/16 04:14 Dose: 2 mg Midodrine (Proamatine) 10 mg PO Q12H SIMON Last Admin: 04/26/16 10:07 Dose: 10 mg Vancomycin HCl (Vancocin 25 Mg/Ml (Oral Use)) 125 mg PO QID SIMON PRN Reason: Protocol Last Admin: 04/26/16 10:07 Dose: 125 mg - Labs Labs: 04/26/16 11:00 04/26/16 11:00 PT 16.7 Seconds (9.9-11.8) H 04/24/16 06:30 INR 1.55 (0.93-1.08) H 04/24/16 06:30 APTT 70.6 Seconds (23.7-30.8) H* 04/26/16 07:57 Attending/Attestation - Attestation I have personally seen and examined this patient.: Yes I have fully participated in the care of the patient.: Yes I have reviewed all pertinent clinical information, including history, physical exam and plan: Yes Notes (Text): 04/26/16 12:24 50 year old male with past medical history of CAD s/p CABG, alcohol abuse, substance abuse, chronic liver disease and ESRD who presented with altered mental status, sepsis and hypoxic respiratory failure s/p intubation. He was found to have aspiration pneumonia (sputum culture growing Klebsiella) and bilateral pleural effusion s/p chest tube. He is s/p extubation. He is being weaned off pressors and oxygen. Continue with chest tube care as per surgery and antibiotics as per ID. His mental status has improved. He is being followed by GI for SBP/ascites and by nephrology for ESRD. He is on heparin drip for DVT of left IJV. Hematology evaluation was requested for thrombocytopenia. Will follow up with recommendations. Will replete and repeat potassium. He is on antibiotics for C Diff diarrhea. Elly Flores MD Hospitalist.
[2016-04-26 11:45] LABS: ALB/GLOB RATIO 1.2 (1.1-1.8); BILIRUBIN,TOTAL 0.9 mg/dL (0.2-1.3); CALCIUM 7.6 mg/dL (8.4-10.5); POTASSIUM 3.4 mmol/L (3.6-5.0); TOTAL PROTEIN 3.5 g/dL (5.8-8.3)
[2016-04-26] MEDS ORDERED: Potassium Chloride 40 mEq/30 ml LIQ UD PO ONE (12:23)
[2016-04-26] MEDS ORDERED: Argatroban 250 MG in Dextrose 5% In Water 250 ML IV SCH (13:45)
--- NOTE | 2016-04-26 13:56 | CP.CCUPN ---
<Joan Beck - Last Filed: 04/26/16 13:53> CCU Subjective - Physician Review Subjective (Free Text): Pt s&e w ICU attending. DEXTER. Pt continue to have soft stool. Pt on Lactulose. Denies SOB, CP, ALEXNADER. Pt is resting comfortably. CT in place. On Levophed, vasopressin, Dobutamin. CCU Objective - Vital Signs / Intake & Output Intake and Output (Last 8hrs): Intake & Output 04/25/16 04/26/16 04/26/16 22:59 06:59 14:59 Intake Total 1203 Output Total 1900 Balance -697 Intake: IV 783 Right Femoral 601 Left Femoral 60 RFA 122 Oral 120 Albumin 300 Output: Chest Tube Drainage 300 Right 300 Urine 0 Urine, Voided 0 Stool 100 Emesis 0 Oral Regurgitation 0 Other 1500 Other: # Bowel Movements 2 - Physical Exam Head: Positive for: Atraumatic, Normocephalic Pupils: Positive for: PERRL Extroacular Muscles: Positive for: EOMI Conjunctiva: Positive for: Normal. Negative for: Injected, Icteric Mouth: Positive for: Moist Mucous Membranes Neck: Positive for: Normal Range of Motion Respiratory/Chest: Positive for: Decreased Breath Sounds, Other (CT on R chest: 300cc/24. SS . On NC 5L ). Negative for: Accessory Muscle Use Cardiovascular: Positive for: Regular Rate and Rhythm, Normal S1, S2. Negative for: Murmurs Abdomen: Positive for: Distention, Normal Bowel Sounds. Negative for: Tenderness, Peritoneal Signs, Rebound Upper Extremity: Positive for: Edema. Negative for: Cyanosis Lower Extremity: Positive for: Edema. Negative for: CALF TENDERNESS Neurological: Positive for: GCS=15, CN II-XII Intact, Speech Normal Skin: Positive for: Warm, Dry, Normal Color. Negative for: Rashes Psychiatric: Positive for: Alert, Oriented x 3 - Medications Active Medications: Active Medications Generic Name Dose Route Start Last Admin Trade Name Freq PRN Reason Stop Dose Admin Albuterol/Ipratropium 3 ml 04/20/16 13:13 04/24/16 07:38 Duoneb 3 Mg/0.5 Mg (3 Ml) Ud IH 3 ml [id number] PRN Administration Shortness of Breath Calcium Acetate 667 mg 04/21/16 08:00 04/26/16 08:57 Phoslo PO 667 mg WM SIMON Administration Famotidine 40 mg 04/25/16 22:00 04/25/16 22:46 Pepcid PO 40 mg HS SIMON Administration Hydrocortisone Sodium Succinate 50 mg 04/22/16 08:30 04/26/16 08:57 Solu-Cortef IVP 50 mg Q6H SIMON Administration Meropenem 500 mg/ Sodium 100 mls @ 100 mls/hr 04/21/16 10:00 04/26/16 10:08 Chloride IVPB 04/28/16 10:01 100 mls/hr Q12 SIMON Administration Protocol Metronidazole 100 mls @ 100 mls/hr 04/23/16 14:30 04/26/16 06:48 Flagyl IVPB 100 mls/hr Q8 SIMON Administration Protocol Dobutamine HCl/Dextrose 250 mls @ 6.017 mls/hr 04/24/16 16:24 04/25/16 17:09 Dobutamine/Dextrose 5% 500mg/250ml IV 6.017 mls/hr .Q24H PRN Administration TITRATE PER PROTOCOL Protocol 2.5 MCG/KG/MIN Vasopressin 20 units/ Sodium 101 mls @ 9.09 mls/hr 04/25/16 15:35 04/26/16 06: 33 Chloride IV 9.09 mls/hr .Q11H7M SIMON Administration Protocol 0.03 U/MIN Norepinephrine Bitartrate 4 mg 254 mls @ 9 mls/hr 04/25/16 15:52 04/25/16 18:59 / Dextrose IV 2 mcg/min .Q24H PRN Titration TITRATE PER MD ORDER Protocol Argatroban 250 mg/ Dextrose 252.5 mls @ 2.43 mls/hr 04/26/16 13:45 IV .Q24H SIMON Protocol 0.5 MCG/KG/MIN Lactulose 20 gm 04/24/16 10:00 04/26/16 10:07 Enulose PO 20 gm DAILY SIMON Administration Lorazepam 2 mg 04/21/16 08:41 04/26/16 04:14 Ativan IVP 2 mg Q2H PRN Administration Agitation Protocol Midodrine 10 mg 04/20/16 22:00 04/26/16 10:07 Proamatine PO 10 mg Q12H SIMON Administration Vancomycin HCl 125 mg 04/23/16 18:00 04/26/16 10:07 Vancocin 25 Mg/Ml (Oral Use) PO 125 mg QID SIMON Administration Protocol - Patient Studies Lab Studies: Microbiology Studies 04/22/16 16:07 Gram Stain - Final Ascitic Fluid Anaerobic Culture - Final NO ANAEROBES ISOLATED. Body Fluid Culture - Final No growth. Fungal Culture - Preliminary Lab Studies 04/26/16 04/26/16 04/26/16 Range/Units 11:00 07:57 07:37 WBC 6.3 D (4.5-11.0) 10^3/ul RBC 3.50 (3.5-6.1) 10^6/uL Hgb 10.1 L (14.0-18.0) gm/dL Hct 30.6 L (42.0-52.0) % MCV 87.4 (80.0-105.0) fL MCH 28.9 (25.0-35.0) pg MCHC 33.0 (31.0-37.0) g/dl RDW 15.8 H (11.5-14.5) % Plt Count 47 L* (120.0-450.0) 10^3/uL MPV 11.5 H (7.0-11.0) fl Gran % 86.7 H (50.0-68.0) % Lymph % (Auto) 6.2 L (22.0-35.0) % [place] % (Auto) 6.9 H (1.0-6.0) % Eos % (Auto) 0.2 L (1.5-5.0) % Baso % (Auto) 0.0 (0.0-3.0) % Gran # 5.44 (1.4-6.5) Lymph # 0.4 L (1.2-3.4) [place] # 0.4 (0.1-0.6) Eos # 0.0 (0.0-0.7) Baso # 0.00 (0.0-2.0) K/mm3 APTT 70.6 H* (23.7-30.8) Seconds Sodium 135 (132-148) mmol/L Potassium 3.4 L (3.6-5.0) mmol/L Chloride 102 (95-110) mmol/L Carbon Dioxide 23 (21-33) mmol/L Anion Gap 13 (10-20) BUN 37 H (7-21) mg/dL Creatinine 3.5 H (0.5-1.4) mg/dL Est GFR ( Amer) 22 Est GFR (Non-Af Amer) 18 POC Glucose (mg/dL) 106 (65-110) mg/dL Random Glucose 87 (70-110) mg/dL Calcium 7.6 L (8.4-10.5) mg/dL Total Bilirubin 0.9 (0.2-1.3) mg/dL AST 15 (15-59) U/L ALT 27 (7-56) U/L Alkaline Phosphatase 142 H (38-133) U/L Total Protein 3.5 L (5.8-8.3) g/dL Albumin 1.9 L (3.0-4.8) g/dL Globulin 1.6 gm/dL Albumin/Globulin Ratio 1.2 (1.1-1.8) Peritoneal Lipase (<10) U/L Pleural Total Protein (()) g/dL Pleural LDH (()) U/L Toxicology Panel (()) 04/22/16 04/22/16 04/19/16 Range/Units 16:07 09:00 21:10 WBC (4.5-11.0) 10^3/ul RBC (3.5-6.1) 10^6/uL Hgb (14.0-18.0) gm/dL Hct (42.0-52.0) % MCV (80.0-105.0) fL MCH (25.0-35.0) pg MCHC (31.0-37.0) g/dl RDW (11.5-14.5) % Plt Count (120.0-450.0) 10^3/uL MPV (7.0-11.0) fl Gran % (50.0-68.0) % Lymph % (Auto) (22.0-35.0) % [place] % (Auto) (1.0-6.0) % Eos % (Auto) (1.5-5.0) % Baso % (Auto) (0.0-3.0) % Gran # (1.4-6.5) Lymph # (1.2-3.4) [place] # (0.1-0.6) Eos # (0.0-0.7) Baso # (0.0-2.0) K/mm3 APTT (23.7-30.8) Seconds Sodium (132-148) mmol/L Potassium (3.6-5.0) mmol/L Chloride (95-110) mmol/L Carbon Dioxide (21-33) mmol/L Anion Gap (10-20) BUN (7-21) mg/dL Creatinine (0.5-1.4) mg/dL Est GFR ( Amer) Est GFR (Non-Af Amer) POC Glucose (mg/dL) (65-110) mg/dL Random Glucose (70-110) mg/dL Calcium (8.4-10.5) mg/dL Total Bilirubin (0.2-1.3) mg/dL AST (15-59) U/L ALT (7-56) U/L Alkaline Phosphatase (38-133) U/L Total Protein (5.8-8.3) g/dL Albumin (3.0-4.8) g/dL Globulin gm/dL Albumin/Globulin Ratio (1.1-1.8) Peritoneal Lipase 5.0 (<10) U/L Pleural Total Protein <3.0 (()) g/dL Pleural LDH 126 (()) U/L Toxicology Panel see note (()) Laboratory Results - last 24 hr 04/19/16 04/22/16 04/22/16 21:10 09:00 16:07 WBC RBC Hgb Hct MCV MCH MCHC RDW Plt Count MPV Gran % Lymph % (Auto) [place] % (Auto) Eos % (Auto) Baso % (Auto) Gran # Lymph # [place] # Eos # Baso # APTT Sodium Potassium Chloride Carbon Dioxide Anion Gap BUN Creatinine Est GFR ( Amer) Est GFR (Non-Af Amer) POC Glucose (mg/dL) Random Glucose Calcium Total Bilirubin AST ALT Alkaline Phosphatase Total Protein Albumin Globulin Albumin/Globulin Ratio Peritoneal Lipase 5.0 Pleural Total Protein <3.0 Pleural LDH 126 Toxicology Panel see note 04/26/16 04/26/16 04/26/16 07:37 07:57 11:00 WBC 6.3 D RBC 3.50 Hgb 10.1 L Hct 30.6 L MCV 87.4 MCH 28.9 MCHC 33.0 RDW 15.8 H Plt Count 47 L* MPV 11.5 H Gran % 86.7 H Lymph % (Auto) 6.2 L [place] % (Auto) 6.9 H Eos % (Auto) 0.2 L Baso % (Auto) 0.0 Gran # 5.44 Lymph # 0.4 L [place] # 0.4 Eos # 0.0 Baso # 0.00 APTT 70.6 H* Sodium 135 Potassium 3.4 L Chloride 102 Carbon Dioxide 23 Anion Gap 13 BUN 37 H Creatinine 3.5 H Est GFR ( Amer) 22 Est GFR (Non-Af Amer) 18 POC Glucose (mg/dL) 106 Random Glucose 87 Calcium 7.6 L Total Bilirubin 0.9 AST 15 ALT 27 Alkaline Phosphatase 142 H Total Protein 3.5 L Albumin 1.9 L Globulin 1.6 Albumin/Globulin Ratio 1.2 Peritoneal Lipase Pleural Total Protein Pleural LDH Toxicology Panel Fingerstick Blood Sugar Results: 115 Review of Systems - Constitutional Constitutional: absent: Fever, Sweats, Weakness, Malaise - EENT Eyes: absent: Blurred Vision, Change in Vision Ears: absent: Decreased Hearing - Cardiovascular Cardiovascular: Edema. absent: Chest Pain, Chest Pain at Rest, Claudication, Dyspnea, Irregular Heart Rhythm - Respiratory Respiratory: absent: Cough, Dyspnea - Gastrointestinal Gastrointestinal: Bloating. absent: Abdominal Pain, Belching - Genitourinary Genitourinary: absent: Difficulty Urinating Critical Care Progress Note - Ventilator Checklist Head of Bed 30 Degrees: Yes Daily Sedation Vacation: No - Nutrition Nutrition: Nutrition Category Date Time Status Renal Diet [DIET] Diets 04/23/16 Dinner Ordered Assessment/Plan - Assessment and Plan (Free Text) Assessment: 50 yo male with PMH of ESRD on HD (T,TH,S) cirrhosis, hep C, alcohol abuse, and h/o cocaine and heroin use presented with septic shock 2/2 aspiration PNA with multiorgan failure. He had hypoxemic respiratory failure and AMS. Surgery placed a chest tube on right side Right femoral central line placed and left femoral arterial line: Improving overall. Plan: Neuro: AAO x3 - initially presented with AMS - ativan PRN - treating empirically for hepatic encephalopathy - cont to monitor cardio - spetic shock with hypotension - levophed , Vasopressin, Dobutamin drips - arterial line - midodrine BID - echo should EF for 50% with severe pulmonary HTN and bioprosthesis valve - Dobutamine for pulm HTN - cont to monitor - cardiology following pulm - hypoxemic respiratory failure 2/2 aspiration PNE: Resolved - CTA showed no PE, bilateral pleural effusions R>L - repeat cxr : b/l infiltrate - Chest tube is on suction without air leaks and produced 300cc of serosanganous fluid - surgery following - NC O2 5L - cont to monitor - aspiration precaution, HOB >35 GI: C-diff ag + - h/o hep c, cirrhosis, and ascites - abd US showed moderate ascites with mild hepatosplenomegaly and moderate bilateral pleural effusions - on lactulose for empiric treatment for hepatic encephalopathy - titrate lactulose to 2-3 BM per day - s/p paracentesis: 2L out - GI following - Renal diet - protonix ppx - Vanc/Flagyl Renal - ESRD on HD - nephro following, Dr. Gonzalez - monitor electrolytes, replace as needed endo - maintain euglycemia ID - septic shock 2/2 aspiration PNA, C-diff - afebrile, no leukocytosis - cont meropenem, Flagyl and vanco - blood cx neg - Sputum cx : Klebsiella - maintain normothermia - ID following, Dr. Millard DVT: + for LUE -Heparin drip DCed -Starting on argatroban drip: Impaired Hepatic protocol (Child Gomez score B) 0.5 /kg/hr Disposition: Titrate pressors. When pressors are off, ok to transfer out. d/w attending <Kevin Nava - Last Filed: 04/26/16 14:18> CCU Objective - Vital Signs / Intake & Output Intake and Output (Last 8hrs): Intake & Output 04/25/16 04/26/16 04/26/16 22:59 06:59 14:59 Intake Total 1203 Output Total 1900 Balance -697 Intake: IV 783 Right Femoral 601 Left Femoral 60 RFA 122 Oral 120 Albumin 300 Output: Chest Tube Drainage 300 Right 300 Urine 0 Urine, Voided 0 Stool 100 Emesis 0 Oral Regurgitation 0 Other 1500 Other: # Bowel Movements 2 - Medications Active Medications: Active Medications Generic Name Dose Route Start Last Admin Trade Name Freq PRN Reason Stop Dose Admin Albuterol/Ipratropium 3 ml 04/20/16 13:13 04/24/16 07:38 Duoneb 3 Mg/0.5 Mg (3 Ml) Ud IH 3 ml [id number] PRN Administration Shortness of Breath Calcium Acetate 667 mg 04/21/16 08:00 04/26/16 08:57 Phoslo PO 667 mg WM SIMON Administration Famotidine 40 mg 04/25/16 22:00 04/25/16 22:46 Pepcid PO 40 mg HS SIMON Administration Hydrocortisone Sodium Succinate 50 mg 04/22/16 08:30 04/26/16 08:57 Solu-Cortef IVP 50 mg Q6H SIMON Administration Meropenem 500 mg/ Sodium 100 mls @ 100 mls/hr 04/21/16 10:00 04/26/16 10:08 Chloride IVPB 04/28/16 10:01 100 mls/hr Q12 SIMON Administration Protocol Metronidazole 100 mls @ 100 mls/hr 04/23/16 14:30 04/26/16 06:48 Flagyl IVPB 100 mls/hr Q8 SIMON Administration Protocol Dobutamine HCl/Dextrose 250 mls @ 6.017 mls/hr 04/24/16 16:24 04/25/16 17:09 Dobutamine/Dextrose 5% 500mg/250ml IV 6.017 mls/hr .Q24H PRN Administration TITRATE PER PROTOCOL Protocol 2.5 MCG/KG/MIN Vasopressin 20 units/ Sodium 101 mls @ 9.09 mls/hr 04/25/16 15:35 04/26/16 06: 33 Chloride IV 9.09 mls/hr .Q11H7M SIMON Administration Protocol 0.03 U/MIN Norepinephrine Bitartrate 4 mg 254 mls @ 9 mls/hr 04/25/16 15:52 04/25/16 18:59 / Dextrose IV 2 mcg/min .Q24H PRN Titration TITRATE PER MD ORDER Protocol Argatroban 250 mg/ Dextrose 252.5 mls @ 2.43 mls/hr 04/26/16 13:45 IV .Q24H SIMON Protocol 0.5 MCG/KG/MIN Lactulose 20 gm 04/24/16 10:00 04/26/16 10:07 Enulose PO 20 gm DAILY SIMON Administration Lorazepam 2 mg 04/21/16 08:41 04/26/16 04:14 Ativan IVP 2 mg Q2H PRN Administration Agitation Protocol Midodrine 10 mg 04/20/16 22:00 04/26/16 10:07 Proamatine PO 10 mg Q12H SIMON Administration Vancomycin HCl 125 mg 04/23/16 18:00 04/26/16 10:07 Vancocin 25 Mg/Ml (Oral Use) PO 125 mg QID SIMON Administration Protocol - Patient Studies Lab Studies: Microbiology Studies 04/22/16 16:07 Gram Stain - Final Ascitic Fluid Anaerobic Culture - Final NO ANAEROBES ISOLATED. Body Fluid Culture - Final No growth. Fungal Culture - Preliminary Lab Studies 04/26/16 04/26/16 04/26/16 Range/Units 11:00 07:57 07:37 WBC 6.3 D (4.5-11.0) 10^3/ul RBC 3.50 (3.5-6.1) 10^6/uL Hgb 10.1 L (14.0-18.0) gm/dL Hct 30.6 L (42.0-52.0) % MCV 87.4 (80.0-105.0) fL MCH 28.9 (25.0-35.0) pg MCHC 33.0 (31.0-37.0) g/dl RDW 15.8 H (11.5-14.5) % Plt Count 47 L* (120.0-450.0) 10^3/uL MPV 11.5 H (7.0-11.0) fl Gran % 86.7 H (50.0-68.0) % Lymph % (Auto) 6.2 L (22.0-35.0) % [place] % (Auto) 6.9 H (1.0-6.0) % Eos % (Auto) 0.2 L (1.5-5.0) % Baso % (Auto) 0.0 (0.0-3.0) % Gran # 5.44 (1.4-6.5) Lymph # 0.4 L (1.2-3.4) [place] # 0.4 (0.1-0.6) Eos # 0.0 (0.0-0.7) Baso # 0.00 (0.0-2.0) K/mm3 APTT 70.6 H* (23.7-30.8) Seconds Sodium 135 (132-148) mmol/L Potassium 3.4 L (3.6-5.0) mmol/L Chloride 102 (95-110) mmol/L Carbon Dioxide 23 (21-33) mmol/L Anion Gap 13 (10-20) BUN 37 H (7-21) mg/dL Creatinine 3.5 H (0.5-1.4) mg/dL Est GFR ( Amer) 22 Est GFR (Non-Af Amer) 18 POC Glucose (mg/dL) 106 (65-110) mg/dL Random Glucose 87 (70-110) mg/dL Calcium 7.6 L (8.4-10.5) mg/dL Total Bilirubin 0.9 (0.2-1.3) mg/dL AST 15 (15-59) U/L ALT 27 (7-56) U/L Alkaline Phosphatase 142 H (38-133) U/L Total Protein 3.5 L (5.8-8.3) g/dL Albumin 1.9 L (3.0-4.8) g/dL Globulin 1.6 gm/dL Albumin/Globulin Ratio 1.2 (1.1-1.8) Peritoneal Lipase (<10) U/L Pleural Total Protein (()) g/dL Pleural LDH (()) U/L Toxicology Panel (()) 04/22/16 04/22/16 04/19/16 Range/Units 16:07 09:00 21:10 WBC (4.5-11.0) 10^3/ul RBC (3.5-6.1) 10^6/uL Hgb (14.0-18.0) gm/dL Hct (42.0-52.0) % MCV (80.0-105.0) fL MCH (25.0-35.0) pg MCHC (31.0-37.0) g/dl RDW (11.5-14.5) % Plt Count (120.0-450.0) 10^3/uL MPV (7.0-11.0) fl Gran % (50.0-68.0) % Lymph % (Auto) (22.0-35.0) % [place] % (Auto) (1.0-6.0) % Eos % (Auto) (1.5-5.0) % Baso % (Auto) (0.0-3.0) % Gran # (1.4-6.5) Lymph # (1.2-3.4) [place] # (0.1-0.6) Eos # (0.0-0.7) Baso # (0.0-2.0) K/mm3 APTT (23.7-30.8) Seconds Sodium (132-148) mmol/L Potassium (3.6-5.0) mmol/L Chloride (95-110) mmol/L Carbon Dioxide (21-33) mmol/L Anion Gap (10-20) BUN (7-21) mg/dL Creatinine (0.5-1.4) mg/dL Est GFR ( Amer) Est GFR (Non-Af Amer) POC Glucose (mg/dL) (65-110) mg/dL Random Glucose (70-110) mg/dL Calcium (8.4-10.5) mg/dL Total Bilirubin (0.2-1.3) mg/dL AST (15-59) U/L ALT (7-56) U/L Alkaline Phosphatase (38-133) U/L Total Protein (5.8-8.3) g/dL Albumin (3.0-4.8) g/dL Globulin gm/dL Albumin/Globulin Ratio (1.1-1.8) Peritoneal Lipase 5.0 (<10) U/L Pleural Total Protein <3.0 (()) g/dL Pleural LDH 126 (()) U/L Toxicology Panel see note (()) Laboratory Results - last 24 hr 04/19/16 04/22/16 04/22/16 21:10 09:00 16:07 WBC RBC Hgb Hct MCV MCH MCHC RDW Plt Count MPV Gran % Lymph % (Auto) [place] % (Auto) Eos % (Auto) Baso % (Auto) Gran # Lymph # [place] # Eos # Baso # APTT Sodium Potassium Chloride Carbon Dioxide Anion Gap BUN Creatinine Est GFR ( Amer) Est GFR (Non-Af Amer) POC Glucose (mg/dL) Random Glucose Calcium Total Bilirubin AST ALT Alkaline Phosphatase Total Protein Albumin Globulin Albumin/Globulin Ratio Peritoneal Lipase 5.0 Pleural Total Protein <3.0 Pleural LDH 126 Toxicology Panel see note 04/26/16 04/26/16 04/26/16 07:37 07:57 11:00 WBC 6.3 D RBC 3.50 Hgb 10.1 L Hct 30.6 L MCV 87.4 MCH 28.9 MCHC 33.0 RDW 15.8 H Plt Count 47 L* MPV 11.5 H Gran % 86.7 H Lymph % (Auto) 6.2 L [place] % (Auto) 6.9 H Eos % (Auto) 0.2 L Baso % (Auto) 0.0 Gran # 5.44 Lymph # 0.4 L [place] # 0.4 Eos # 0.0 Baso # 0.00 APTT 70.6 H* Sodium 135 Potassium 3.4 L Chloride 102 Carbon Dioxide 23 Anion Gap 13 BUN 37 H Creatinine 3.5 H Est GFR ( Amer) 22 Est GFR (Non-Af Amer) 18 POC Glucose (mg/dL) 106 Random Glucose 87 Calcium 7.6 L Total Bilirubin 0.9 AST 15 ALT 27 Alkaline Phosphatase 142 H Total Protein 3.5 L Albumin 1.9 L Globulin 1.6 Albumin/Globulin Ratio 1.2 Peritoneal Lipase Pleural Total Protein Pleural LDH Toxicology Panel Critical Care Progress Note - Nutrition Nutrition: Nutrition Category Date Time Status Renal Diet [DIET] Diets 04/23/16 Dinner Ordered Attending/Attestation - Attestation I have personally seen and examined this patient.: Yes I have fully participated in the care of the patient.: Yes I have reviewed all pertinent clinical information: Yes Notes (Text): 04/26/16 14:15 The patient was seen and examined at the bedside. Patient care was discussed with resident Medical records, lab studies, and imaging were reviewed and management issues were discussed and formulated. Last 24H events reviewed. Agree with above treatment plans as outlined in 's note with addition of the following: -hemodynamic monitoring and vasopressor support to maintain MAP>65; continue titrating levophed, vasopressin -continue dobutamine and midodrine -o2 supplementation to maintain Spo2 >90 Pao2>60; comfortable on NC -s\p chest tube placement -no air leak noted -f\u repeat CXR -continue broad spectrum Abx as per ID team ; f\u cultures -continue lactulose; GI team f\u -f\u Bun\Cr and HD as per renal team -PO diet and aspiration precautions -f\u HIT work up; hematology eval appreciated; d\c heparin and start argatroban -monitor closely for bleeding -DVT \ PUD prophylaxis CCM f\u 34min
[2016-04-26] MEDS: Argatroban 250 MG in Dextrose 5% In Water 250 ML IV SCH (14:08)
--- NOTE | 2016-04-26 15:46 | CP.PCM.PN ---
Subjective - Date & Time of Evaluation Date of Evaluation: 04/26/16 Time of Evaluation: 09:40 - Subjective Subjective: Patient is comfortable in bed, but at times get agitated and wants to go out to have a smoke. He states his breathing is better, is afebrile. His stools are now soft and not watery anymore. Objective - Vital Signs/Intake and Output Vital Signs (last 24 hours): Temp Pulse Resp BP Pulse Ox 97.7 F 104 H 36 H 98/48 L 87 L 04/25/16 16:00 04/26/16 01:01 04/26/16 01:01 04/26/16 01:01 04/26/16 01:01 - Medications Medications: Current Medications Albuterol/Ipratropium (Duoneb 3 Mg/0.5 Mg (3 Ml) Ud) 3 ml IH [id number] PRN PRN Reason: Shortness of Breath Last Admin: 04/24/16 07:38 Dose: 3 ml Calcium Acetate (Phoslo) 667 mg PO WM SIMON Last Admin: 04/26/16 08:57 Dose: 667 mg Famotidine (Pepcid) 40 mg PO HS SIMON Last Admin: 04/25/16 22:46 Dose: 40 mg Hydrocortisone Sodium Succinate (Solu-Cortef) 50 mg IVP Q6H SIMON Last Admin: 04/26/16 08:57 Dose: 50 mg Meropenem 500 mg/ Sodium (Chloride) 100 mls @ 100 mls/hr IVPB Q12 SIMON PRN Reason: Protocol Stop: 04/28/16 10:01 Last Admin: 04/26/16 10:08 Dose: 100 mls/hr Metronidazole (Flagyl) 100 mls @ 100 mls/hr IVPB Q8 SIMON PRN Reason: Protocol Last Admin: 04/26/16 06:48 Dose: 100 mls/hr Dobutamine HCl/Dextrose (Dobutamine/Dextrose 5% 500mg/250ml) 250 mls @ 6.017 mls/hr IV .Q24H PRN; Protocol; 2.5 MCG/KG/MIN PRN Reason: TITRATE PER PROTOCOL Last Admin: 04/25/16 17:09 Dose: 6.017 mls/hr Vasopressin 20 units/ Sodium (Chloride) 101 mls @ 9.09 mls/hr IV .Q11H7M SIMON; 0.03 U/MIN PRN Reason: Protocol Last Admin: 04/26/16 06:33 Dose: 9.09 mls/hr Norepinephrine Bitartrate 4 mg (/ Dextrose) 254 mls @ 9 mls/hr IV .Q24H PRN; Protocol PRN Reason: TITRATE PER MD ORDER Last Titration: 04/25/16 18:59 Dose: 2 mcg/min Argatroban 250 mg/ Dextrose 252.5 mls @ 2.43 mls/hr IV .Q24H SIMON; 0.5 MCG/KG/ MIN PRN Reason: Protocol Last Admin: 04/26/16 14:08 Dose: 2.43 mls/hr Lactulose (Enulose) 20 gm PO DAILY SIMON Last Admin: 04/26/16 10:07 Dose: 20 gm Lorazepam (Ativan) 2 mg IVP Q2H PRN; Protocol PRN Reason: Agitation Last Admin: 04/26/16 04:14 Dose: 2 mg Midodrine (Proamatine) 10 mg PO Q12H SIMON Last Admin: 04/26/16 10:07 Dose: 10 mg Vancomycin HCl (Vancocin 25 Mg/Ml (Oral Use)) 125 mg PO QID SIMON PRN Reason: Protocol Last Admin: 04/26/16 10:07 Dose: 125 mg - Labs Labs: 04/26/16 11:00 04/26/16 11:00 PT 16.7 Seconds (9.9-11.8) H 04/24/16 06:30 INR 1.55 (0.93-1.08) H 04/24/16 06:30 APTT 70.6 Seconds (23.7-30.8) H* 04/26/16 07:57 - Constitutional Appears: Non-toxic, No Acute Distress - Head Exam Head Exam: NORMAL INSPECTION - ENT Exam ENT Exam: Mucous Membranes Moist - Neck Exam Neck Exam: absent: Lymphadenopathy, Meningismus - Respiratory Exam Respiratory Exam: Decreased Breath Sounds Additional comments: right anterior chest wall permacath in place, site intact - Cardiovascular Exam Cardiovascular Exam: +S1, +S2 - GI/Abdominal Exam GI & Abdominal Exam: Soft. absent: Tenderness - Extremities Exam Additional comments: right femoral central venous catheter in place, left femoral arterial line in place Assessment and Plan - Assessment and Plan (Free Text) Plan: Assessment Septic shock with multiorgan dysfunction syndrome (MODS) with acute toxic- metabolic encephalopathy, chronic renal failure, hypoxic respiratory failure (S/ P ventilator-dependence) with probable right sided severe healthcare-associated pneumonia with Klebsiella (ESBL-producing, multidrug-resistant) with pleural effusion S/P chest tube placement POD #5 in a patient who possibly overdosed on heroin; patient is improving clinically, is not encephalopathic currently and is off the ventilator and breathing well on his own CAD S/P CABG ESRD on HD history of lymphadenopathy Plan continue Meropenem (day 6 - target 7-8 days), PO Vanco and IV Flagyl (day 4 - target 10 days total but may consider discontinuing IV Flagyl as long as his stools continue to be soft); sputum cx growing Klebsiella (ESBL-producing, multidrug-resistant) as well as cultures of the pleural fluid; blood cx are negative; reviewed CXR and CT chest will continue to monitor closely
--- NOTE | 2016-04-27 01:28 | PN ---
DATE: 04/26/2016 The patient was in the unit bed 4, currently in the unit for multiple medical issues. He is intensiv aster sick with multiple bacterial infections, hepatic encephalopathy, hypotension and status post inse rtion of chest tube on PS, on hemodialysis, has DVT for which he has been on heparin. Currently, the problems have been profound thrombocytopenia, raising the issue of heparin-induced thrombocytopenia, which has been requested. Subjectively the patient is continuing to have loose bowel movements, on lactulose. Denies any histo ry of shortness of breath, chest pain, headaches resting comfortably. The patient's chest tube is in place and he is on Levophed, vasopressin and dobutamine for his cardiac issues. PHYSICAL EXAMINATION: GENERAL: The patient is awake, alert. HEENT: Pupils are equally reactive to light and accommodation. Conjunctivae pale. Sclerae is anict ashleigh. Mouth reveals moist mucous membranes. NECK: Supple. There is no adenopathy. CHEST: Decreased breath sounds with a chest tube in place. No accessory muscle use is noted. Scatt ered wheezes are heard. HEART: Reveals S1, S2 to be normal. No gallop is heard. ABDOMEN: Soft, normal bowel sounds are heard. No peritoneal signs are noted. EXTREMITIES: Upper extremities positive for edema so does the lower extremity show edema. NEUROLOGIC: Higher functions are normal. Speech is normal. Also, the patient has intermittent epis odes of confusion. SKIN: Turgor is decreased. No skin lesions are noted. PSYCHIATRIC: The patient is awake, alert, and oriented x 3. MEDICATIONS: The patient's medications were reviewed and he is currently off heparin and switched ov er to argatroban as per protocol. The patient continues to be on lactulose and Ativan for his hepati c encephalopathy. He continues to be on antibiotics as well. The patient is also on oral vancomycin and also on meropenem. LABORATORY DATA: Today's white count is 6.3, hemoglobin 10.1, hematocrit 30.6, platelet count is 47, 000. ASSESSMENT NOTES AND PLAN: The patient has multiple comorbid medical issues that could be a causativ e factor for this thrombocytopenia in a patient with end-stage renal disease on hemodialysis, cirrhos is, hepatitis C, alcohol abuse, drug abuse, septic shock, status post aspiration, multiorgan failure, hypoxemic respiratory failure, chest tube placed on the right side, right femoral central line, left femoral arterial line, could have thrombocytopenia related to the multifactorial causes, but in view of the fact that the platelets have dramatically dropped over the last 4 days while on heparin, I th ought it was prudent to do heparin antibodies, in the meantime switch over to argatroban, pending eliceo gnosis. I have spoken in detail with Dr. Nava the snow technician who is going to communicate to his re sidence. I will speak to Dr. Flores as well. Esha Latham MD cc: [id number] TT: 04/27/2016 01:27:30 Confirmation # [id number] Dictation # [id number]
[2016-04-27] MEDS: metroNIDAZOLE IV 500 mg/100 ml 100 ML IVPB SCH (06:13)
[2016-04-27 06:40] LABS: HEMATOCRIT 30.1 % (42.0-52.0); MEAN CELL VOLUME 88.3 fL (80.0-105.0); MEAN CORPUSCULAR HEMOGLOBIN 28.7 pg (25.0-35.0); MEAN CORPUSCULAR HGB CONC 32.6 g/dl (31.0-37.0); PLATELET COUNT 56 10^3/uL (120.0-450.0); RED CELL DISTRIBUTION WIDTH 15.6 % (11.5-14.5); WHITE BLOOD COUNT 6.4 10^3/ul (4.5-11.0)
[2016-04-27 06:48] LABS: ADD MANUAL DIFF? YES
[2016-04-27 07:18] LABS: ALB/GLOB RATIO 0.9 (1.1-1.8); POTASSIUM 3.2 mmol/L (3.6-5.0); TOTAL PROTEIN 3.5 g/dL (5.8-8.3)
--- NOTE | 2016-04-27 07:43 | PN ---
DATE: 04/25/2016 The patient seen and examined at bedside. He is comfortable. He is on nasal cannula 5 L per minute. His oxygen saturation 91%. He is on norepinephrine 4 mcg per minute. Heparin drip is also going on. HEAD AND NECK: Atraumatic. LUNGS: Decreased breath sounds on the left side; some crackles on the right side. HEART: Irregular rate and rhythm. S1, S2 distant. ABDOMEN: Soft, nontender, nondistended. MUSCULOSKELETAL EXAMINATION: Trace bilateral pedal and ankle edema. NEUROLOGIC: The patient moves all extremities spontaneously. SKIN: Moist. PSYCHIATRIC: The patient is alert and oriented x 3. Chest tube on the right side looks okay. There is 200 mL output from 7 a.m. until 2:10 p.m. LABORATORIES: PTT 73.2. WBC 8.7, hemoglobin 10.9, platelet count 47. Sodium 129, potassium 3.7, chloride 98, carbon dioxide 25, BUN 34, creatinine 4.9 ( patient is on hemodialysis). Glucose 111, calcium 7.8, however, albumin 1.8. MEDICATIONS: Ativan p.r.n. The patient is on dobutamine at 2.5 mcg/kg/min. Lactulose, DuoNeb p.r.n., Flagyl, heparin drip, norepinephrine, meropenem, Pepcid, PhosLo, midodrine, hydrocortisone 50 mg IV q. 6, vancomycin p.o., vasopressin 0.03 units per minute. ASSESSMENT AND PLAN: This is 50-year-old gentleman with hepatitis C, portopulmonary hypertension, end-stage renal disease on dialysis, who presented to ICU for severe hypoxemic respiratory failure requiring intubation secondary to Klebsiella pneumonia. The patient was also found to have Clostridium difficile colitis and spontaneous bacterial peritonitis which were consequently treated with antibiotics and paracentesis respectively. The patient was started on dobutamine for severe portopulmonary hypertension. At present time, patient made substantial strides toward improvement in his clinical status. He was weaned down on norepinephrine to 4 mcg per minute from yesterday's 10 mcg per minute. His FIO2 requirements substantially improved. He is on 5 L per minute of nasal cannula with oxygen saturation 91-94%. He is out of bed to chair. He is comfortable. He continues to be on antibiotics. I doubt that the patient has HIT, as the patient's all 3 lineages of hematopoiesis decreased, not only platelets. Besides, timing for drop in platelet level was too soon after heparin exposure. I would continue treatment of his upper extremity DVT with therapeutic anticoagulation, as the risk of stopping it much overweigh the benefits. I will, however, keep a close eye on platelet level, and if it continues to drop down I will touch base with straightening roll operator about next step in managing this problem. However, I think that dropping 3 lineage of hematopoietic activity is secondary to underlying problem , including sepsis and hepatitis C. At present time, will continue to taper down his pressor support and FiO2 as tolerated. Yesterday, bedside thoracic ultrasound revealed air bronchogram and consolidation with a small amount of pleural effusion on the left side, which unlikely can be safely tapped at a bedside. Will continue to target euvolemia, euglycemia, normothermia, and oxygen saturation more than 90%. The patient tolerates oral nutrition well. He just received his hemodialysis, which also helped wean down his FiO2. ccm time 40 min Gabriel Johns MD cc: [id number] TT: 04/25/2016 17:39:17 Confirmation # [id number] Dictation # [id number] CAROL
[2016-04-27] MEDS: Albuterol-Ipratrop 3 mg / 0.5 (3 ml) UD IH PRN (07:48)
[2016-04-27] MEDS ORDERED: Potassium Chloride 20 mEq ER Tab PO STA (07:56)
[2016-04-27 08:10] LABS: NEUTROPHIL 90 % (50.0-70.0)
[2016-04-27 08:11] LABS: HYPOCHROMIA 1+; PLATELET ESTIMATE LOW (NORMAL); POLYCHROMASIA SLIGHT
[2016-04-27 08:12] LABS: ANISOCYTOSIS 1+; OVALOCYTES SLIGHT; TEAR DROP CELLS SLIGHT
--- NOTE | 2016-04-27 08:24 | CP.PCM.PN ---
Subjective - Date & Time of Evaluation Date of Evaluation: 04/27/16 Time of Evaluation: 08:23 - Subjective Subjective: Surgery: Dr. Lowery Pt seen and examined. Resting comfortably in bed. Mildly confused this AM. Per nursing no acute events overnight. Pt denies SOB. Has some discomfort at CT site. Objective - Vital Signs/Intake and Output Vital Signs (last 24 hours): Temp Pulse Resp BP Pulse Ox 98.5 F 87 16 92/58 L 92 L 04/27/16 08:00 04/27/16 08:00 04/27/16 08:00 04/27/16 08:18 04/27/16 08:00 Intake and Output: 04/27/16 04/27/16 06:59 18:59 Intake Total 802 Output Total 550 Balance 252 - Medications Medications: Current Medications Albuterol/Ipratropium (Duoneb 3 Mg/0.5 Mg (3 Ml) Ud) 3 ml IH [id number] PRN PRN Reason: Shortness of Breath Last Admin: 04/27/16 07:48 Dose: 3 ml Calcium Acetate (Phoslo) 667 mg PO WM SIMON Last Admin: 04/26/16 17:13 Dose: 667 mg Famotidine (Pepcid) 40 mg PO HS SIMON Last Admin: 04/26/16 21:42 Dose: 40 mg Hydrocortisone Sodium Succinate (Solu-Cortef) 50 mg IVP Q6H SIMON Last Admin: 04/27/16 03:30 Dose: 50 mg Meropenem 500 mg/ Sodium (Chloride) 100 mls @ 100 mls/hr IVPB Q12 SIMON PRN Reason: Protocol Stop: 04/28/16 10:01 Last Admin: 04/26/16 21:41 Dose: 100 mls/hr Metronidazole (Flagyl) 100 mls @ 100 mls/hr IVPB Q8 SIMON PRN Reason: Protocol Last Admin: 04/27/16 06:13 Dose: 100 mls/hr Dobutamine HCl/Dextrose (Dobutamine/Dextrose 5% 500mg/250ml) 250 mls @ 6.017 mls/hr IV .Q24H PRN; Protocol; 2.5 MCG/KG/MIN PRN Reason: TITRATE PER PROTOCOL Last Admin: 04/25/16 17:09 Dose: 6.017 mls/hr Norepinephrine Bitartrate 4 mg (/ Dextrose) 254 mls @ 9 mls/hr IV .Q24H PRN; Protocol PRN Reason: TITRATE PER MD ORDER Last Titration: 04/25/16 18:59 Dose: 2 mcg/min Argatroban 250 mg/ Dextrose 252.5 mls @ 2.43 mls/hr IV .Q24H SIMON; 0.5 MCG/KG/ MIN PRN Reason: Protocol Last Admin: 04/26/16 14:08 Dose: 2.43 mls/hr Lactulose (Enulose) 20 gm PO DAILY SIMON Last Admin: 04/26/16 10:07 Dose: 20 gm Lorazepam (Ativan) 2 mg IVP Q2H PRN; Protocol PRN Reason: Agitation Last Admin: 04/27/16 01:18 Dose: 2 mg Midodrine (Proamatine) 10 mg PO Q12H SIMON Last Admin: 04/26/16 21:41 Dose: 10 mg Vancomycin HCl (Vancocin 25 Mg/Ml (Oral Use)) 125 mg PO QID SIMON PRN Reason: Protocol Last Admin: 04/26/16 21:40 Dose: 125 mg - Labs Labs: 04/27/16 06:00 04/27/16 06:00 PT 16.7 Seconds (9.9-11.8) H 04/24/16 06:30 INR 1.55 (0.93-1.08) H 04/24/16 06:30 APTT 75.8 Seconds (23.7-30.8) H* 04/27/16 02:04 - Constitutional Appears: Non-toxic, No Acute Distress - Head Exam Head Exam: ATRAUMATIC, NORMOCEPHALIC - Eye Exam Eye Exam: EOMI. absent: Scleral icterus - ENT Exam ENT Exam: Mucous Membranes Moist, Normal External Ear Exam - Neck Exam Neck Exam: Full ROM - Respiratory Exam Respiratory Exam: NORMAL BREATHING PATTERN. absent: Accessory Muscle Use, Respiratory Distress Additional comments: R side CT in place - GI/Abdominal Exam GI & Abdominal Exam: Soft. absent: Tenderness - Extremities Exam Extremities Exam: absent: Calf Tenderness - Neurological Exam Neurological Exam: Alert, Awake. absent: Oriented x3 Assessment and Plan - Assessment and Plan (Free Text) Assessment: 50M s/p R side chest tube placement POD#6 - CT: 400cc/12 hr serosang, tidling, no air leaks - AM CXR, f/u official read, c/w daily cxr - dressing changes daily - c/w current medical management - will d/w attending Zemaitis PGY2
[2016-04-27 08:58] LABS: MAGNESIUM 1.9 mg/dL (1.7-2.2); PHOSPHOROUS 3.1 mg/dL (2.5-4.5)
--- NOTE | 2016-04-27 09:03 | CP.CCUPN ---
Addendum entered and electronically signed by Joan Beck DO 04/27/16 10:42: Dispo: OK to transfer out when Argatroban drip off. Will DC A line f/u Serotonin Release assay Original Note: <Joan Beck - Last Filed: 04/27/16 08:57> CCU Subjective - Physician Review Subjective (Free Text): Pt s&e w ICU attending. NAEON. Pt continue to have soft stool. Pt on Lactulose. Denies SOB, CP, ALEXANDER. Pt is resting comfortably. CT in place: 1L/24hrs. On Dobutamin. Off pressors. PO tolerating. No complaints. 04/27/16 08:57 CCU Objective - Vital Signs / Intake & Output Vital Signs (Last 4 hours): Vital Signs Temp Pulse Resp BP Pulse Ox 04/27/16 08:18 92/58 L 04/27/16 08:00 98.5 F 87 16 92 L 04/27/16 07:00 92 H 20 90 L 04/27/16 06:21 88 23 04/27/16 06:19 89 25 H 04/27/16 06:17 91 H 04/27/16 06:16 90 17 04/27/16 06:15 86 19 04/27/16 06:14 95 H 20 04/27/16 06:13 95 H 16 04/27/16 06:11 88 23 04/27/16 06:10 92 H 34 H 04/27/16 06:09 138 H 32 H 04/27/16 06:08 87 30 H 04/27/16 06:07 100 H 18 04/27/16 06:06 91 H 37 H 04/27/16 06:05 91 H 34 H 04/27/16 06:04 91 H 34 H 04/27/16 06:03 98 H 26 H 04/27/16 06:00 98 H 30 H 66 L 04/27/16 05:59 95 H 18 04/27/16 05:58 100 H 18 04/27/16 05:27 80 22 04/27/16 05:26 84 25 H 04/27/16 05:25 84 25 H 04/27/16 05:24 84 17 04/27/16 05:23 83 23 04/27/16 05:22 83 25 H 04/27/16 05:21 104 H 19 04/27/16 05:20 95 H 22 04/27/16 05:19 82 17 Intake and Output (Last 8hrs): Intake & Output 04/26/16 04/27/16 04/27/16 22:59 06:59 14:59 Intake Total 450 802 Output Total 700 550 Balance -250 252 Weight 170 lb Intake: IV 450 402 Right Femoral 450 402 Oral 400 Output: Chest Tube Drainage 700 400 Right 700 400 Urine 0 Urine, Voided 0 Stool 150 Other: # Bowel Movements 2 1 - Physical Exam Head: Positive for: Atraumatic, Normocephalic Pupils: Positive for: PERRL Extroacular Muscles: Positive for: EOMI Conjunctiva: Positive for: Normal. Negative for: Injected, Icteric Mouth: Positive for: Moist Mucous Membranes Neck: Positive for: Normal Range of Motion Respiratory/Chest: Positive for: Decreased Breath Sounds, Other (CT on R chest: 1Lcc/24. SS .). Negative for: Accessory Muscle Use Cardiovascular: Positive for: Regular Rate and Rhythm, Normal S1, S2. Negative for: Murmurs Abdomen: Positive for: Distention, Normal Bowel Sounds. Negative for: Tenderness, Peritoneal Signs, Rebound Upper Extremity: Positive for: Edema. Negative for: Cyanosis Lower Extremity: Positive for: Edema. Negative for: CALF TENDERNESS Neurological: Positive for: GCS=15, CN II-XII Intact, Speech Normal Skin: Positive for: Warm, Dry, Normal Color. Negative for: Rashes Psychiatric: Positive for: Alert, Oriented x 3 - Medications Active Medications: Active Medications Generic Name Dose Route Start Last Admin Trade Name Freq PRN Reason Stop Dose Admin Albuterol/Ipratropium 3 ml 04/20/16 13:13 04/27/16 07:48 Duoneb 3 Mg/0.5 Mg (3 Ml) Ud IH 3 ml [id number] PRN Administration Shortness of Breath Calcium Acetate 667 mg 04/21/16 08:00 04/26/16 17:13 Phoslo PO 667 mg WM SIMON Administration Famotidine 40 mg 04/25/16 22:00 04/26/16 21:42 Pepcid PO 40 mg HS SIMON Administration Hydrocortisone Sodium Succinate 50 mg 04/22/16 08:30 04/27/16 03:30 Solu-Cortef IVP 50 mg Q6H SIMON Administration Meropenem 500 mg/ Sodium 100 mls @ 100 mls/hr 04/21/16 10:00 04/26/16 21:41 Chloride IVPB 04/28/16 10:01 100 mls/hr Q12 SIMON Administration Protocol Metronidazole 100 mls @ 100 mls/hr 04/23/16 14:30 04/27/16 06:13 Flagyl IVPB 100 mls/hr Q8 SIMON Administration Protocol Dobutamine HCl/Dextrose 250 mls @ 6.017 mls/hr 04/24/16 16:24 04/25/16 17:09 Dobutamine/Dextrose 5% 500mg/250ml IV 6.017 mls/hr .Q24H PRN Administration TITRATE PER PROTOCOL Protocol 2.5 MCG/KG/MIN Norepinephrine Bitartrate 4 mg 254 mls @ 9 mls/hr 04/25/16 15:52 04/25/16 18:59 / Dextrose IV 2 mcg/min .Q24H PRN Titration TITRATE PER MD ORDER Protocol Argatroban 250 mg/ Dextrose 252.5 mls @ 2.43 mls/hr 04/26/16 13:45 04/26/16 14: 08 IV 2.43 mls/hr .Q24H SIMON Administration Protocol 0.5 MCG/KG/MIN Lactulose 20 gm 04/24/16 10:00 04/26/16 10:07 Enulose PO 20 gm DAILY SIMON Administration Lorazepam 2 mg 04/21/16 08:41 04/27/16 01:18 Ativan IVP 2 mg Q2H PRN Administration Agitation Protocol Midodrine 10 mg 04/20/16 22:00 04/26/16 21:41 Proamatine PO 10 mg Q12H SIMON Administration Vancomycin HCl 125 mg 04/23/16 18:00 04/26/16 21:40 Vancocin 25 Mg/Ml (Oral Use) PO 125 mg QID SIMON Administration Protocol - Patient Studies Lab Studies: Microbiology Studies 04/22/16 16:07 Gram Stain - Final Ascitic Fluid Anaerobic Culture - Final NO ANAEROBES ISOLATED. Body Fluid Culture - Final No growth. Fungal Culture - Preliminary Lab Studies 04/27/16 04/27/16 04/26/16 Range/Units 06:00 02:04 21:38 WBC 6.4 (4.5-11.0) 10^3/ul RBC 3.41 L (3.5-6.1) 10^6/uL Hgb 9.8 L (14.0-18.0) gm/dL Hct 30.1 L (42.0-52.0) % MCV 88.3 (80.0-105.0) fL MCH 28.7 (25.0-35.0) pg MCHC 32.6 (31.0-37.0) g/dl RDW 15.6 H (11.5-14.5) % Plt Count 56 L (120.0-450.0) 10^3/uL MPV 12.0 H (7.0-11.0) fl Gran % (50.0-68.0) % Lymph % (Auto) (22.0-35.0) % [place] % (Auto) (1.0-6.0) % Eos % (Auto) (1.5-5.0) % Baso % (Auto) (0.0-3.0) % Gran # (1.4-6.5) Lymph # (1.2-3.4) [place] # (0.1-0.6) Eos # (0.0-0.7) Baso # (0.0-2.0) K/mm3 Neutrophils % (Manual) 90 H (50.0-70.0) % Lymphocytes % (Manual) 6 L (22.0-35.0) % Monocytes % (Manual) 4 (1.0-6.0) % Platelet Evaluation Low (NORMAL) Polychromasia Slight Hypochromasia 1+ Anisocytosis (manual) 1+ Tear Drop Cells Slight Ovalocytes Slight APTT 75.8 H* (23.7-30.8) Seconds Sodium 135 (132-148) mmol/L Potassium 3.2 L (3.6-5.0) mmol/L Chloride 104 (98-107) mmol/L Carbon Dioxide 24 (21-33) mmol/L Anion Gap 10 (10-20) BUN 53 H (7-21) mg/dL Creatinine 4.1 H (0.5-1.4) mg/dL Est GFR ( Amer) 19 Est GFR (Non-Af Amer) 15 POC Glucose (mg/dL) 101 (65-110) mg/dL Random Glucose 106 (70-110) mg/dL Calcium 7.0 L (8.4-10.5) mg/dL Total Bilirubin 1.0 (0.2-1.3) mg/dL AST 22 (15-59) U/L ALT 25 (7-56) U/L Alkaline Phosphatase 129 (38-133) U/L Total Protein 3.5 L (5.8-8.3) g/dL Albumin 1.7 L (3.0-4.8) g/dL Globulin 1.8 gm/dL Albumin/Globulin Ratio 0.9 L (1.1-1.8) 04/26/16 04/26/16 04/26/16 Range/Units 20:35 11:46 11:00 WBC 6.3 D (4.5-11.0) 10^3/ul RBC 3.50 (3.5-6.1) 10^6/uL Hgb 10.1 L (14.0-18.0) gm/dL Hct 30.6 L (42.0-52.0) % MCV 87.4 (80.0-105.0) fL MCH 28.9 (25.0-35.0) pg MCHC 33.0 (31.0-37.0) g/dl RDW 15.8 H (11.5-14.5) % Plt Count 47 L* (120.0-450.0) 10^3/uL MPV 11.5 H (7.0-11.0) fl Gran % 86.7 H (50.0-68.0) % Lymph % (Auto) 6.2 L (22.0-35.0) % [place] % (Auto) 6.9 H (1.0-6.0) % Eos % (Auto) 0.2 L (1.5-5.0) % Baso % (Auto) 0.0 (0.0-3.0) % Gran # 5.44 (1.4-6.5) Lymph # 0.4 L (1.2-3.4) [place] # 0.4 (0.1-0.6) Eos # 0.0 (0.0-0.7) Baso # 0.00 (0.0-2.0) K/mm3 Neutrophils % (Manual) (50.0-70.0) % Lymphocytes % (Manual) (22.0-35.0) % Monocytes % (Manual) (1.0-6.0) % Platelet Evaluation (NORMAL) Polychromasia Hypochromasia Anisocytosis (manual) Tear Drop Cells Ovalocytes APTT 69.2 H (23.7-30.8) Seconds Sodium 135 (132-148) mmol/L Potassium 3.4 L (3.6-5.0) mmol/L Chloride 102 (98-107) mmol/L Carbon Dioxide 23 (21-33) mmol/L Anion Gap 13 (10-20) BUN 37 H (7-21) mg/dL Creatinine 3.5 H (0.5-1.4) mg/dL Est GFR ( Amer) 22 Est GFR (Non-Af Amer) 18 POC Glucose (mg/dL) 130 H (65-110) mg/dL Random Glucose 87 (70-110) mg/dL Calcium 7.6 L (8.4-10.5) mg/dL Total Bilirubin 0.9 (0.2-1.3) mg/dL AST 15 (15-59) U/L ALT 27 (7-56) U/L Alkaline Phosphatase 142 H (38-133) U/L Total Protein 3.5 L (5.8-8.3) g/dL Albumin 1.9 L (3.0-4.8) g/dL Globulin 1.6 gm/dL Albumin/Globulin Ratio 1.2 (1.1-1.8) 04/26/16 Range/Units 07:57 WBC (4.5-11.0) 10^3/ul RBC (3.5-6.1) 10^6/uL Hgb (14.0-18.0) gm/dL Hct (42.0-52.0) % MCV (80.0-105.0) fL MCH (25.0-35.0) pg MCHC (31.0-37.0) g/dl RDW (11.5-14.5) % Plt Count (120.0-450.0) 10^3/uL MPV (7.0-11.0) fl Gran % (50.0-68.0) % Lymph % (Auto) (22.0-35.0) % [place] % (Auto) (1.0-6.0) % Eos % (Auto) (1.5-5.0) % Baso % (Auto) (0.0-3.0) % Gran # (1.4-6.5) Lymph # (1.2-3.4) [place] # (0.1-0.6) Eos # (0.0-0.7) Baso # (0.0-2.0) K/mm3 Neutrophils % (Manual) (50.0-70.0) % Lymphocytes % (Manual) (22.0-35.0) % Monocytes % (Manual) (1.0-6.0) % Platelet Evaluation (NORMAL) Polychromasia Hypochromasia Anisocytosis (manual) Tear Drop Cells Ovalocytes APTT 70.6 H* (23.7-30.8) Seconds Sodium (132-148) mmol/L Potassium (3.6-5.0) mmol/L Chloride (98-107) mmol/L Carbon Dioxide (21-33) mmol/L Anion Gap (10-20) BUN (7-21) mg/dL Creatinine (0.5-1.4) mg/dL Est GFR ( Amer) Est GFR (Non-Af Amer) POC Glucose (mg/dL) (65-110) mg/dL Random Glucose (70-110) mg/dL Calcium (8.4-10.5) mg/dL Total Bilirubin (0.2-1.3) mg/dL AST (15-59) U/L ALT (7-56) U/L Alkaline Phosphatase (38-133) U/L Total Protein (5.8-8.3) g/dL Albumin (3.0-4.8) g/dL Globulin gm/dL Albumin/Globulin Ratio (1.1-1.8) Laboratory Results - last 24 hr 04/26/16 04/26/16 04/26/16 07:57 11:00 11:46 WBC 6.3 D RBC 3.50 Hgb 10.1 L Hct 30.6 L MCV 87.4 MCH 28.9 MCHC 33.0 RDW 15.8 H Plt Count 47 L* MPV 11.5 H Gran % 86.7 H Lymph % (Auto) 6.2 L [place] % (Auto) 6.9 H Eos % (Auto) 0.2 L Baso % (Auto) 0.0 Gran # 5.44 Lymph # 0.4 L [place] # 0.4 Eos # 0.0 Baso # 0.00 Neutrophils % (Manual) Lymphocytes % (Manual) Monocytes % (Manual) Platelet Evaluation Polychromasia Hypochromasia Anisocytosis (manual) Tear Drop Cells Ovalocytes APTT 70.6 H* Sodium 135 Potassium 3.4 L Chloride 102 Carbon Dioxide 23 Anion Gap 13 BUN 37 H Creatinine 3.5 H Est GFR ( Amer) 22 Est GFR (Non-Af Amer) 18 POC Glucose (mg/dL) 130 H Random Glucose 87 Calcium 7.6 L Total Bilirubin 0.9 AST 15 ALT 27 Alkaline Phosphatase 142 H Total Protein 3.5 L Albumin 1.9 L Globulin 1.6 Albumin/Globulin Ratio 1.2 04/26/16 04/26/16 04/27/16 20:35 21:38 02:04 WBC RBC Hgb Hct MCV MCH MCHC RDW Plt Count MPV Gran % Lymph % (Auto) [place] % (Auto) Eos % (Auto) Baso % (Auto) Gran # Lymph # [place] # Eos # Baso # Neutrophils % (Manual) Lymphocytes % (Manual) Monocytes % (Manual) Platelet Evaluation Polychromasia Hypochromasia Anisocytosis (manual) Tear Drop Cells Ovalocytes APTT 69.2 H 75.8 H* Sodium Potassium Chloride Carbon Dioxide Anion Gap BUN Creatinine Est GFR ( Amer) Est GFR (Non-Af Amer) POC Glucose (mg/dL) 101 Random Glucose Calcium Total Bilirubin AST ALT Alkaline Phosphatase Total Protein Albumin Globulin Albumin/Globulin Ratio 04/27/16 06:00 WBC 6.4 RBC 3.41 L Hgb 9.8 L Hct 30.1 L MCV 88.3 MCH 28.7 MCHC 32.6 RDW 15.6 H Plt Count 56 L MPV 12.0 H Gran % Lymph % (Auto) [place] % (Auto) Eos % (Auto) Baso % (Auto) Gran # Lymph # [place] # Eos # Baso # Neutrophils % (Manual) 90 H Lymphocytes % (Manual) 6 L Monocytes % (Manual) 4 Platelet Evaluation Low Polychromasia Slight Hypochromasia 1+ Anisocytosis (manual) 1+ Tear Drop Cells Slight Ovalocytes Slight APTT Sodium 135 Potassium 3.2 L Chloride 104 Carbon Dioxide 24 Anion Gap 10 BUN 53 H Creatinine 4.1 H Est GFR ( Amer) 19 Est GFR (Non-Af Amer) 15 POC Glucose (mg/dL) Random Glucose 106 Calcium 7.0 L Total Bilirubin 1.0 AST 22 ALT 25 Alkaline Phosphatase 129 Total Protein 3.5 L Albumin 1.7 L Globulin 1.8 Albumin/Globulin Ratio 0.9 L Fingerstick Blood Sugar Results: 115 Review of Systems - Constitutional Constitutional: absent: Fever, Chills, Sweats - EENT Eyes: absent: Blurred Vision Nose/Mouth/Throat: absent: Epistaxis, Nasal Congestion - Cardiovascular Cardiovascular: absent: Chest Pain, Chest Pain at Rest - Gastrointestinal Gastrointestinal: Bloating. absent: Abdominal Pain Critical Care Progress Note - Ventilator Checklist Head of Bed 30 Degrees: Yes Daily Sedation Vacation: No - Nutrition Nutrition: Nutrition Category Date Time Status Renal Diet [DIET] Diets 04/23/16 Dinner Ordered Assessment/Plan - Assessment and Plan (Free Text) Assessment: 50 yo male with PMH of ESRD on HD (T,TH,S) cirrhosis, hep C, alcohol abuse, and h/o cocaine and heroin use presented with septic shock 2/2 aspiration PNA with multiorgan failure. He had hypoxemic respiratory failure and AMS. Surgery placed a chest tube on right side Right femoral central line placed and left femoral arterial line: Improving overall. Plan: Neuro: AAO x3 - initially presented with AMS - ativan PRN - treating empirically for hepatic encephalopathy - cont to monitor cardio - spetic shock with hypotension - Dobutamin drips - arterial line - midodrine BID - echo should EF for 50% with severe pulmonary HTN and bioprosthesis valve - Dobutamine for pulm HTN - cont to monitor - cardiology following pulm - hypoxemic respiratory failure 2/2 aspiration PNE: Resolved - CTA showed no PE, bilateral pleural effusions R>L - repeat cxr : b/l infiltrate - Chest tube is on suction without air leaks and produced 1000cc of serosanganous fluid - surgery following - NC O2 5L - cont to monitor - aspiration precaution, HOB >35 GI: C-diff ag + - h/o hep c, cirrhosis, and ascites - abd US showed moderate ascites with mild hepatosplenomegaly and moderate bilateral pleural effusions - on lactulose for empiric treatment for hepatic encephalopathy - titrate lactulose to 2-3 BM per day - s/p paracentesis: 2L out - GI following - Renal diet - protonix ppx - Vanc/Flagyl Renal - ESRD on HD - nephro following, Dr. Gonzalez - monitor electrolytes, replace as needed endo - maintain euglycemia ID - septic shock 2/2 aspiration PNA, C-diff, Sputum cx: Klebsiella - afebrile, no leukocytosis - cont meropenem, Flagyl and vanco - blood cx neg - maintain normothermia - ID following, Dr. Millard DVT: + for LUE , L IJ -Heparin drip DCed for HIT -on argatroban drip: Impaired Hepatic protocol (Child Gomez score B) 0.5/kg/hr Disposition: When pressors are off, ok to transfer out. <Kevin Nava - Last Filed: 04/27/16 12:13> CCU Objective - Vital Signs / Intake & Output Vital Signs (Last 4 hours): Vital Signs Temp Pulse Resp BP Pulse Ox 04/27/16 12:00 97.9 F 73 21 96/60 L 97 04/27/16 11:00 81 18 91/54 L 04/27/16 10:00 82 15 113/43 L 04/27/16 09:35 82 16 04/27/16 09:08 100 H 19 106/63 04/27/16 09:00 97 H 17 117/67 04/27/16 08:28 79 105/41 L 91 L 04/27/16 08:18 92/58 L Intake and Output (Last 8hrs): Intake & Output 04/26/16 04/27/16 04/27/16 22:59 06:59 14:59 Intake Total 450 802 Output Total 700 550 Balance -250 252 Weight 170 lb Intake: IV 450 402 Right Femoral 450 402 Oral 400 Output: Chest Tube Drainage 700 400 Right 700 400 Urine 0 Urine, Voided 0 Stool 150 Other: # Bowel Movements 2 1 - Medications Active Medications: Active Medications Generic Name Dose Route Start Last Admin Trade Name Freq PRN Reason Stop Dose Admin Albuterol/Ipratropium 3 ml 04/20/16 13:13 04/27/16 07:48 Duoneb 3 Mg/0.5 Mg (3 Ml) Ud IH 3 ml [id number] PRN Administration Shortness of Breath Calcium Acetate 667 mg 04/21/16 08:00 04/27/16 12:09 Phoslo PO Not Given WM SIMON Famotidine 40 mg 04/25/16 22:00 04/26/16 21:42 Pepcid PO 40 mg HS SIMON Administration Hydrocortisone Sodium Succinate 50 mg 04/22/16 08:30 04/27/16 09:18 Solu-Cortef IVP 50 mg Q6H SIMON Administration Meropenem 500 mg/ Sodium 100 mls @ 100 mls/hr 04/21/16 10:00 04/27/16 09:14 Chloride IVPB 04/28/16 10:01 100 mls/hr Q12 SIMON Administration Protocol Dobutamine HCl/Dextrose 250 mls @ 6.017 mls/hr 04/24/16 16:24 04/25/16 17:09 Dobutamine/Dextrose 5% 500mg/250ml IV 6.017 mls/hr .Q24H PRN Administration TITRATE PER PROTOCOL Protocol 2.5 MCG/KG/MIN Norepinephrine Bitartrate 4 mg 254 mls @ 9 mls/hr 04/25/16 15:52 04/25/16 18:59 / Dextrose IV 2 mcg/min .Q24H PRN Titration TITRATE PER MD ORDER Protocol Argatroban 250 mg/ Dextrose 252.5 mls @ 2.43 mls/hr 04/26/16 13:45 04/26/16 14: 08 IV 2.43 mls/hr .Q24H SIMON Administration Protocol 0.5 MCG/KG/MIN Lactulose 20 gm 04/24/16 10:00 04/27/16 09:14 Enulose PO 20 gm DAILY SIMON Administration Lorazepam 2 mg 04/21/16 08:41 04/27/16 09:18 Ativan IVP 2 mg Q2H PRN Administration Agitation Protocol Midodrine 10 mg 04/20/16 22:00 04/27/16 09:15 Proamatine PO 10 mg Q12H SIMON Administration Vancomycin HCl 125 mg 04/23/16 18:00 04/27/16 09:16 Vancocin 25 Mg/Ml (Oral Use) PO 125 mg QID SIMON Administration Protocol - Patient Studies Lab Studies: Microbiology Studies 04/22/16 16:07 Gram Stain - Final Ascitic Fluid Anaerobic Culture - Final NO ANAEROBES ISOLATED. Body Fluid Culture - Final No growth. Fungal Culture - Preliminary Lab Studies 04/27/16 04/27/16 04/27/16 Range/Units 08:30 06:30 06:00 WBC 6.4 (4.5-11.0) 10^3/ul RBC 3.41 L (3.5-6.1) 10^6/uL Hgb 9.8 L (14.0-18.0) gm/dL Hct 30.1 L (42.0-52.0) % MCV 88.3 (80.0-105.0) fL MCH 28.7 (25.0-35.0) pg MCHC 32.6 (31.0-37.0) g/dl RDW 15.6 H (11.5-14.5) % Plt Count 56 L (120.0-450.0) 10^3/uL MPV 12.0 H (7.0-11.0) fl Neutrophils % (Manual) 90 H (50.0-70.0) % Lymphocytes % (Manual) 6 L (22.0-35.0) % Monocytes % (Manual) 4 (1.0-6.0) % Platelet Evaluation Low (NORMAL) Polychromasia Slight Hypochromasia 1+ Anisocytosis (manual) 1+ Tear Drop Cells Slight Ovalocytes Slight PT 41.5 H* (9.9-11.8) Seconds INR 3.84 H* (0.93-1.08) APTT 72.4 H* (23.7-30.8) Seconds Sodium 135 (132-148) mmol/L Potassium 3.2 L (3.6-5.0) mmol/L Chloride 104 (98-107) mmol/L Carbon Dioxide 24 (21-33) mmol/L Anion Gap 10 (10-20) BUN 53 H (7-21) mg/dL Creatinine 4.1 H (0.5-1.4) mg/dL Est GFR ( Amer) 19 Est GFR (Non-Af Amer) 15 POC Glucose (mg/dL) (65-110) mg/dL Random Glucose 106 (70-110) mg/dL Calcium 7.0 L (8.4-10.5) mg/dL Phosphorus 3.1 (2.5-4.5) mg/dL Magnesium 1.9 (1.7-2.2) mg/dL Total Bilirubin 1.0 (0.2-1.3) mg/dL AST 22 (15-59) U/L ALT 25 (7-56) U/L Alkaline Phosphatase 129 (38-133) U/L Total Protein 3.5 L (5.8-8.3) g/dL Albumin 1.7 L (3.0-4.8) g/dL Globulin 1.8 gm/dL Albumin/Globulin Ratio 0.9 L (1.1-1.8) 04/27/16 04/26/16 04/26/16 Range/Units 02:04 21:38 20:35 WBC (4.5-11.0) 10^3/ul RBC (3.5-6.1) 10^6/uL Hgb (14.0-18.0) gm/dL Hct (42.0-52.0) % MCV (80.0-105.0) fL MCH (25.0-35.0) pg MCHC (31.0-37.0) g/dl RDW (11.5-14.5) % Plt Count (120.0-450.0) 10^3/uL MPV (7.0-11.0) fl Neutrophils % (Manual) (50.0-70.0) % Lymphocytes % (Manual) (22.0-35.0) % Monocytes % (Manual) (1.0-6.0) % Platelet Evaluation (NORMAL) Polychromasia Hypochromasia Anisocytosis (manual) Tear Drop Cells Ovalocytes PT (9.9-11.8) Seconds INR (0.93-1.08) APTT 75.8 H* 69.2 H (23.7-30.8) Seconds Sodium (132-148) mmol/L Potassium (3.6-5.0) mmol/L Chloride (98-107) mmol/L Carbon Dioxide (21-33) mmol/L Anion Gap (10-20) BUN (7-21) mg/dL Creatinine (0.5-1.4) mg/dL Est GFR ( Amer) Est GFR (Non-Af Amer) POC Glucose (mg/dL) 101 (65-110) mg/dL Random Glucose (70-110) mg/dL Calcium (8.4-10.5) mg/dL Phosphorus (2.5-4.5) mg/dL Magnesium (1.7-2.2) mg/dL Total Bilirubin (0.2-1.3) mg/dL AST (15-59) U/L ALT (7-56) U/L Alkaline Phosphatase (38-133) U/L Total Protein (5.8-8.3) g/dL Albumin (3.0-4.8) g/dL Globulin gm/dL Albumin/Globulin Ratio (1.1-1.8) 04/26/16 Range/Units 11:46 WBC (4.5-11.0) 10^3/ul RBC (3.5-6.1) 10^6/uL Hgb (14.0-18.0) gm/dL Hct (42.0-52.0) % MCV (80.0-105.0) fL MCH (25.0-35.0) pg MCHC (31.0-37.0) g/dl RDW (11.5-14.5) % Plt Count (120.0-450.0) 10^3/uL MPV (7.0-11.0) fl Neutrophils % (Manual) (50.0-70.0) % Lymphocytes % (Manual) (22.0-35.0) % Monocytes % (Manual) (1.0-6.0) % Platelet Evaluation (NORMAL) Polychromasia Hypochromasia Anisocytosis (manual) Tear Drop Cells Ovalocytes PT (9.9-11.8) Seconds INR (0.93-1.08) APTT (23.7-30.8) Seconds Sodium (132-148) mmol/L Potassium (3.6-5.0) mmol/L Chloride (98-107) mmol/L Carbon Dioxide (21-33) mmol/L Anion Gap (10-20) BUN (7-21) mg/dL Creatinine (0.5-1.4) mg/dL Est GFR ( Amer) Est GFR (Non-Af Amer) POC Glucose (mg/dL) 130 H (65-110) mg/dL Random Glucose (70-110) mg/dL Calcium (8.4-10.5) mg/dL Phosphorus (2.5-4.5) mg/dL Magnesium (1.7-2.2) mg/dL Total Bilirubin (0.2-1.3) mg/dL AST (15-59) U/L ALT (7-56) U/L Alkaline Phosphatase (38-133) U/L Total Protein (5.8-8.3) g/dL Albumin (3.0-4.8) g/dL Globulin gm/dL Albumin/Globulin Ratio (1.1-1.8) Laboratory Results - last 24 hr 04/26/16 04/26/16 04/26/16 11:46 20:35 21:38 WBC RBC Hgb Hct MCV MCH MCHC RDW Plt Count MPV Neutrophils % (Manual) Lymphocytes % (Manual) Monocytes % (Manual) Platelet Evaluation Polychromasia Hypochromasia Anisocytosis (manual) Tear Drop Cells Ovalocytes PT INR APTT 69.2 H Sodium Potassium Chloride Carbon Dioxide Anion Gap BUN Creatinine Est GFR ( Amer) Est GFR (Non-Af Amer) POC Glucose (mg/dL) 130 H 101 Random Glucose Calcium Phosphorus Magnesium Total Bilirubin AST ALT Alkaline Phosphatase Total Protein Albumin Globulin Albumin/Globulin Ratio 04/27/16 04/27/16 04/27/16 02:04 06:00 06:30 WBC 6.4 RBC 3.41 L Hgb 9.8 L Hct 30.1 L MCV 88.3 MCH 28.7 MCHC 32.6 RDW 15.6 H Plt Count 56 L MPV 12.0 H Neutrophils % (Manual) 90 H Lymphocytes % (Manual) 6 L Monocytes % (Manual) 4 Platelet Evaluation Low Polychromasia Slight Hypochromasia 1+ Anisocytosis (manual) 1+ Tear Drop Cells Slight Ovalocytes Slight PT INR APTT 75.8 H* Sodium 135 Potassium 3.2 L Chloride 104 Carbon Dioxide 24 Anion Gap 10 BUN 53 H Creatinine 4.1 H Est GFR ( Amer) 19 Est GFR (Non-Af Amer) 15 POC Glucose (mg/dL) Random Glucose 106 Calcium 7.0 L Phosphorus 3.1 Magnesium 1.9 Total Bilirubin 1.0 AST 22 ALT 25 Alkaline Phosphatase 129 Total Protein 3.5 L Albumin 1.7 L Globulin 1.8 Albumin/Globulin Ratio 0.9 L 04/27/16 08:30 WBC RBC Hgb Hct MCV MCH MCHC RDW Plt Count MPV Neutrophils % (Manual) Lymphocytes % (Manual) Monocytes % (Manual) Platelet Evaluation Polychromasia Hypochromasia Anisocytosis (manual) Tear Drop Cells Ovalocytes PT 41.5 H* INR 3.84 H* APTT 72.4 H* Sodium Potassium Chloride Carbon Dioxide Anion Gap BUN Creatinine Est GFR ( Amer) Est GFR (Non-Af Amer) POC Glucose (mg/dL) Random Glucose Calcium Phosphorus Magnesium Total Bilirubin AST ALT Alkaline Phosphatase Total Protein Albumin Globulin Albumin/Globulin Ratio Critical Care Progress Note - Nutrition Nutrition: Nutrition Category Date Time Status Renal Diet [DIET] Diets 04/23/16 Dinner Ordered Attending/Attestation - Attestation I have personally seen and examined this patient.: Yes I have fully participated in the care of the patient.: Yes I have reviewed all pertinent clinical information: Yes Notes (Text): 04/27/16 12:12 The patient was seen and examined at the bedside. Patient care was discussed with resident Medical records, lab studies, and imaging were reviewed and management issues were discussed and formulated. Last 24H events reviewed. Agree with above treatment plans as outlined in 's note with addition of the following: -hemodynamic monitoring and vasopressor support to maintain MAP>65; off levophed , vasopressin -continue dobutamine and midodrine -o2 supplementation to maintain Spo2 >90 Pao2>60; comfortable on NC -s\p chest tube placement -no air leak noted; surgical team following -f\u repeat CXR -continue broad spectrum Abx as per ID team ; f\u cultures -continue lactulose; GI team f\u -f\u Bun\Cr and HD as per renal team -PO diet and aspiration precautions -f\u HIT work up; hematology eval appreciated;continue argatroban and f\u PTT -monitor closely for bleeding and f\u serial CBC -DVT \ PUD prophylaxis CCM f\u 35min
[2016-04-27] MEDS: Meropenem 500 MG in Sodium Chloride 0.9% 100 ML IVPB SCH ×2 (09:14→21:52)
[2016-04-27] MEDS: Vancomycin 25 MG/ML PO SCH ×4 (09:16→22:11)
[2016-04-27 09:20] LABS: INR 3.84 (0.93-1.08)
[2016-04-27 09:21] LABS: PARTIAL THROMBOPLASTIN TIME 72.4 Seconds (23.7-30.8)
--- NOTE | 2016-04-27 09:38 | CP.PCM.PN ---
Subjective - Date & Time of Evaluation Date of Evaluation: 04/27/16 Time of Evaluation: 09:00 - Subjective Subjective: Patient is comfortable, much better breathing, not agitated, less pain on the right side of the chest where the chest tube is, no fevers, still with loose stools but is not watery anymore. Objective - Vital Signs/Intake and Output Vital Signs (last 24 hours): Temp Pulse Resp BP Pulse Ox 97.4 F L 86 23 90/54 L 87 L 04/27/16 04:00 04/27/16 04:16 04/27/16 04:16 04/26/16 17:00 04/26/16 01:01 Intake and Output: 04/26/16 04/27/16 18:59 06:59 Intake Total 450 802 Output Total 700 550 Balance -250 252 - Medications Medications: Current Medications Albuterol/Ipratropium (Duoneb 3 Mg/0.5 Mg (3 Ml) Ud) 3 ml IH [id number] PRN PRN Reason: Shortness of Breath Last Admin: 04/24/16 07:38 Dose: 3 ml Calcium Acetate (Phoslo) 667 mg PO WM SIMON Last Admin: 04/26/16 17:13 Dose: 667 mg Famotidine (Pepcid) 40 mg PO HS SIMON Last Admin: 04/26/16 21:42 Dose: 40 mg Hydrocortisone Sodium Succinate (Solu-Cortef) 50 mg IVP Q6H SIMON Last Admin: 04/27/16 03:30 Dose: 50 mg Meropenem 500 mg/ Sodium (Chloride) 100 mls @ 100 mls/hr IVPB Q12 SIMON PRN Reason: Protocol Stop: 04/28/16 10:01 Last Admin: 04/26/16 21:41 Dose: 100 mls/hr Metronidazole (Flagyl) 100 mls @ 100 mls/hr IVPB Q8 SIMON PRN Reason: Protocol Last Admin: 04/27/16 06:13 Dose: 100 mls/hr Dobutamine HCl/Dextrose (Dobutamine/Dextrose 5% 500mg/250ml) 250 mls @ 6.017 mls/hr IV .Q24H PRN; Protocol; 2.5 MCG/KG/MIN PRN Reason: TITRATE PER PROTOCOL Last Admin: 04/25/16 17:09 Dose: 6.017 mls/hr Vasopressin 20 units/ Sodium (Chloride) 101 mls @ 9.09 mls/hr IV .Q11H7M SIMON; 0.03 U/MIN PRN Reason: Protocol Last Admin: 04/26/16 06:33 Dose: 9.09 mls/hr Norepinephrine Bitartrate 4 mg (/ Dextrose) 254 mls @ 9 mls/hr IV .Q24H PRN; Protocol PRN Reason: TITRATE PER MD ORDER Last Titration: 04/25/16 18:59 Dose: 2 mcg/min Argatroban 250 mg/ Dextrose 252.5 mls @ 2.43 mls/hr IV .Q24H SIMON; 0.5 MCG/KG/ MIN PRN Reason: Protocol Last Admin: 04/26/16 14:08 Dose: 2.43 mls/hr Lactulose (Enulose) 20 gm PO DAILY SIMON Last Admin: 04/26/16 10:07 Dose: 20 gm Lorazepam (Ativan) 2 mg IVP Q2H PRN; Protocol PRN Reason: Agitation Last Admin: 04/27/16 01:18 Dose: 2 mg Midodrine (Proamatine) 10 mg PO Q12H SIMON Last Admin: 04/26/16 21:41 Dose: 10 mg Vancomycin HCl (Vancocin 25 Mg/Ml (Oral Use)) 125 mg PO QID SIMON PRN Reason: Protocol Last Admin: 04/26/16 21:40 Dose: 125 mg - Labs Labs: 04/26/16 11:00 04/26/16 11:00 PT 16.7 Seconds (9.9-11.8) H 04/24/16 06:30 INR 1.55 (0.93-1.08) H 04/24/16 06:30 APTT 75.8 Seconds (23.7-30.8) H* 04/27/16 02:04 - Constitutional Appears: Non-toxic, No Acute Distress - Head Exam Head Exam: NORMAL INSPECTION - ENT Exam ENT Exam: Mucous Membranes Moist - Neck Exam Neck Exam: absent: Lymphadenopathy, Meningismus - Respiratory Exam Respiratory Exam: Decreased Breath Sounds Additional comments: right sided chest tube in place with serosanguinous fluid; right sided port site clean - Cardiovascular Exam Cardiovascular Exam: +S1, +S2 - GI/Abdominal Exam GI & Abdominal Exam: Soft. absent: Tenderness Assessment and Plan - Assessment and Plan (Free Text) Plan: Assessment Septic shock with multiorgan dysfunction syndrome (MODS) with acute toxic- metabolic encephalopathy, chronic renal failure, hypoxic respiratory failure (S/ P ventilator-dependence) with probable right sided severe healthcare-associated pneumonia with Klebsiella (ESBL-producing, multidrug-resistant) with pleural effusion S/P chest tube placement POD #6 in a patient who possibly overdosed on heroin; patient is improving clinically, is not encephalopathic currently and is off the ventilator and continues to breathe well on his own - clinically improving C. diff associated diarrhea, slowly improving CAD S/P CABG ESRD on HD history of lymphadenopathy Plan continue Meropenem (day 7 - target 7-8 days), PO Vanco and IV Flagyl (day 5 - target 10 days total but may consider discontinuing IV Flagyl today since the stools are not watery anymore); sputum cx grew Klebsiella (ESBL-producing, multidrug-resistant) ; blood cx are negative; reviewed CXR and CT chest will continue to monitor closely
--- NOTE | 2016-04-27 10:10 | RAD ---
HISTORY: comparison COMPARISON: 04/26/2016 FINDINGS: LUNGS: There is no change in the left-sided infiltrate. There is improvement in the right-sided infiltrate. A right-sided chest tube remains in place PLEURA: No significant pleural effusion identified, no pneumothorax apparent. CARDIOVASCULAR: Normal. OSSEOUS STRUCTURES: No significant abnormalities. VISUALIZED UPPER ABDOMEN: Normal. OTHER FINDINGS: None. IMPRESSION: No change in left-sided infiltrate. Slight improvement in right-sided infiltrate.
--- NOTE | 2016-04-27 13:10 | CP.PCM.PN ---
<Leonel Pierre - Last Filed: 04/27/16 13:06> Subjective - Date & Time of Evaluation Date of Evaluation: 04/27/16 Time of Evaluation: 13:07 - Subjective Subjective: Pt seen and examined at bedside. Pt states he is breathing much better today than previous day, he is still on nasal cannula 5 L. Pt has right sided chest tube in place which drained 400 cc over 12 hours. Denies CP, SOB, Nausea, vomiting, fever. Objective - Vital Signs/Intake and Output Vital Signs (last 24 hours): Temp Pulse Resp BP Pulse Ox 97.9 F 77 21 96/60 L 97 04/27/16 12:00 04/27/16 12:00 04/27/16 12:00 04/27/16 12:00 04/27/16 12:00 Intake and Output: 04/27/16 04/27/16 06:59 18:59 Intake Total 802 Output Total 550 Balance 252 - Medications Medications: Current Medications Albuterol/Ipratropium (Duoneb 3 Mg/0.5 Mg (3 Ml) Ud) 3 ml IH [id number] PRN PRN Reason: Shortness of Breath Last Admin: 04/27/16 07:48 Dose: 3 ml Calcium Acetate (Phoslo) 667 mg PO WM SIMON Last Admin: 04/27/16 12:09 Dose: Not Given Famotidine (Pepcid) 40 mg PO HS SIMON Last Admin: 04/26/16 21:42 Dose: 40 mg Hydrocortisone Sodium Succinate (Solu-Cortef) 50 mg IVP Q6H SIMON Last Admin: 04/27/16 09:18 Dose: 50 mg Meropenem 500 mg/ Sodium (Chloride) 100 mls @ 100 mls/hr IVPB Q12 SIMON PRN Reason: Protocol Stop: 04/28/16 10:01 Last Admin: 04/27/16 09:14 Dose: 100 mls/hr Dobutamine HCl/Dextrose (Dobutamine/Dextrose 5% 500mg/250ml) 250 mls @ 6.017 mls/hr IV .Q24H PRN; Protocol; 2.5 MCG/KG/MIN PRN Reason: TITRATE PER PROTOCOL Last Admin: 04/25/16 17:09 Dose: 6.017 mls/hr Norepinephrine Bitartrate 4 mg (/ Dextrose) 254 mls @ 9 mls/hr IV .Q24H PRN; Protocol PRN Reason: TITRATE PER MD ORDER Last Titration: 04/25/16 18:59 Dose: 2 mcg/min Argatroban 250 mg/ Dextrose 252.5 mls @ 2.43 mls/hr IV .Q24H SIMON; 0.5 MCG/KG/ MIN PRN Reason: Protocol Last Admin: 04/26/16 14:08 Dose: 2.43 mls/hr Lactulose (Enulose) 20 gm PO DAILY SIMON Last Admin: 04/27/16 09:14 Dose: 20 gm Lorazepam (Ativan) 2 mg IVP Q2H PRN; Protocol PRN Reason: Agitation Last Admin: 04/27/16 09:18 Dose: 2 mg Midodrine (Proamatine) 10 mg PO Q12H SIMON Last Admin: 04/27/16 09:15 Dose: 10 mg Vancomycin HCl (Vancocin 25 Mg/Ml (Oral Use)) 125 mg PO QID SIMON PRN Reason: Protocol Last Admin: 04/27/16 09:16 Dose: 125 mg - Labs Labs: 04/27/16 06:00 04/27/16 06:00 PT 41.5 Seconds (9.9-11.8) H* 04/27/16 08:30 INR 3.84 (0.93-1.08) H* 04/27/16 08:30 APTT 72.4 Seconds (23.7-30.8) H* 04/27/16 08:30 - Constitutional Appears: Well, No Acute Distress - Head Exam Head Exam: ATRAUMATIC, NORMAL INSPECTION, NORMOCEPHALIC - ENT Exam ENT Exam: Mucous Membranes Moist, Normal Exam - Respiratory Exam Respiratory Exam: Clear to Ausculation Bilateral, NORMAL BREATHING PATTERN. absent: Rhonchi, Wheezes - Cardiovascular Exam Cardiovascular Exam: RRR, +S1, +S2 Additional comments: Right sided chest tube in place. - GI/Abdominal Exam GI & Abdominal Exam: Soft, Tenderness, Normal Bowel Sounds - Extremities Exam Extremities Exam: Normal Inspection. absent: Calf Tenderness, Pedal Edema - Neurological Exam Neurological Exam: Alert, Awake, Oriented x3 - Psychiatric Exam Psychiatric exam: Normal Affect, Normal Mood - Skin Skin Exam: Intact, Normal Color, Warm Assessment and Plan - Assessment and Plan (Free Text) Plan: 50 y/o male with PMH of ESRD on HD (T,,S) cirrhosis, hep C, alcohol abuse, and polysubstance abuse with cocaine and heroin use presented with hypoxemic respiratory failure and septic shock secondary to klebsiella pneumonia and SBP. Pt resting comfortably on nasal cannula today, with no respiratory distress. Pt only on dobutamine at this time. Platelets increased today after previous day, pt changed to agatroban yesterday. Heparin antibodies are still pending at this time. Plan as per ICU team. Neuro - AAO x3 at this time. - Continue lactulose and rifaximin for possible hepatic encephalopathy cardio - levophed and vasopressin stopped - dobutamine continued - Continue midodrine BID - echo: EF of 50% with severe pulmonary HTN and bioprosthesis valve - cardiology following pulm - CTA demonstrated no PE - B/l pleural effusions - CXR (04/27/16) shows improving right sided infiltrate and stable left sided infiltrate. - CXR (04/26/16) shows improving b/l infiltrates - Right sided chest tube on suction without air leak. Output: 400 cc of serosanganous fluid - aspiration precaution, HOB >35 - surgery following GI - lactulose and rifaxmin for empiric treatment for hepatic encephalopathy - advance diet as tolerated - Albumin 1gm/kg for SBP - protonix ppx - GI following, IR following Renal - ESRD on HD T,T,S - Maintain euvolemia - Replenish electrolytes as needed endo - fingerstick q6h - cont to monitor glucose ID - Afebrile, no leukocytosis - septic shock 2/2 aspiration PNA, (+) Klebsiella pna - C Diff Ag positive, continue vancomycin. - blood cx neg after 48 hours - ID following, Dr. Millard Seen, reviewed, and discussed with attending. Gabby PGY-1 <Elly Flores - Last Filed: 04/27/16 15:39> Objective - Vital Signs/Intake and Output Vital Signs (last 24 hours): Temp Pulse Resp BP Pulse Ox 97.9 F 76 17 123/45 L 97 04/27/16 12:00 04/27/16 14:00 04/27/16 13:00 04/27/16 13:00 04/27/16 12:00 Intake and Output: 04/27/16 04/27/16 06:59 18:59 Intake Total 802 Output Total 550 Balance 252 - Medications Medications: Current Medications Albuterol/Ipratropium (Duoneb 3 Mg/0.5 Mg (3 Ml) Ud) 3 ml IH [id number] PRN PRN Reason: Shortness of Breath Last Admin: 04/27/16 07:48 Dose: 3 ml Calcium Acetate (Phoslo) 667 mg PO WM SIMON Last Admin: 04/27/16 12:09 Dose: Not Given Famotidine (Pepcid) 40 mg PO HS SIMON Last Admin: 04/26/16 21:42 Dose: 40 mg Hydrocortisone Sodium Succinate (Solu-Cortef) 50 mg IVP Q6H SIMON Last Admin: 04/27/16 14:22 Dose: 50 mg Meropenem 500 mg/ Sodium (Chloride) 100 mls @ 100 mls/hr IVPB Q12 SIMON PRN Reason: Protocol Stop: 04/28/16 10:01 Last Admin: 04/27/16 09:14 Dose: 100 mls/hr Dobutamine HCl/Dextrose (Dobutamine/Dextrose 5% 500mg/250ml) 250 mls @ 6.017 mls/hr IV .Q24H PRN; Protocol; 2.5 MCG/KG/MIN PRN Reason: TITRATE PER PROTOCOL Last Admin: 04/25/16 17:09 Dose: 6.017 mls/hr Norepinephrine Bitartrate 4 mg (/ Dextrose) 254 mls @ 9 mls/hr IV .Q24H PRN; Protocol PRN Reason: TITRATE PER MD ORDER Last Titration: 04/25/16 18:59 Dose: 2 mcg/min Argatroban 250 mg/ Dextrose 252.5 mls @ 2.43 mls/hr IV .Q24H SIMON; 0.5 MCG/KG/ MIN PRN Reason: Protocol Last Admin: 04/26/16 14:08 Dose: 2.43 mls/hr Lactulose (Enulose) 20 gm PO DAILY SIMON Last Admin: 04/27/16 09:14 Dose: 20 gm Lorazepam (Ativan) 2 mg IVP Q2H PRN; Protocol PRN Reason: Agitation Last Admin: 04/27/16 09:18 Dose: 2 mg Midodrine (Proamatine) 10 mg PO TID SIMON Last Admin: 04/27/16 14:22 Dose: 10 mg Vancomycin HCl (Vancocin 25 Mg/Ml (Oral Use)) 125 mg PO QID SIMON PRN Reason: Protocol Last Admin: 04/27/16 14:23 Dose: 125 mg - Labs Labs: 04/27/16 06:00 04/27/16 06:00 PT 41.5 Seconds (9.9-11.8) H* 04/27/16 08:30 INR 3.84 (0.93-1.08) H* 04/27/16 08:30 APTT 72.4 Seconds (23.7-30.8) H* 04/27/16 08:30 Attending/Attestation - Attestation I have personally seen and examined this patient.: Yes I have fully participated in the care of the patient.: Yes I have reviewed all pertinent clinical information, including history, physical exam and plan: Yes Notes (Text): 04/27/16 15:36 50 year old male with past medical history of CAD s/p CABG, alcohol abuse, substance abuse, chronic liver disease and ESRD who presented with altered mental status, sepsis and hypoxic respiratory failure s/p intubation. He is now extubated, on nasal cannula oxygen. He was found to have aspiration pneumonia (sputum culture growing Klebsiella) on antibiotics. He also had bilateral pleural effusion for which he is s/p chest tube. Continue with chest tube care as per surgery. He is on agatroban for DVT of left IJV. Heparin drip was discontinued due to thrombocytopenia. Will follow up HIT panel. Follow up with hematology and IR recommendations. Will replete and repeat potassium. Continue with dialysis for ESRD as per nephrology. He is on antibiotics for C Diff diarrhea. Elly Flores MD Hospitalist.
--- NOTE | 2016-04-27 14:44 | PN ---
DATE: 04/27/2016 SUBJECTIVE: The patient was seen in the intensive care unit, 1:1 is present at bedside. At present, he remains on a dobutamine infusion and is also receiving an argatroban infusion as well. He is elle ke and does not appear to be in any distress. He continues to have a right-sided chest tube in place as well. OBJECTIVE: VITAL SIGNS: Blood pressure is 96/60 with a minimum blood pressure as low as 85/49 in the last 24-ho ur period and as high as 142/62, heart rate is 73, but has ranged from the 70s to approximately 138 b eats per minute in the last 24-hour period. Oral temperature is 97.9 and the patient has been afebri le for a 48-hour period. Respiratory rate is 21, but has ranged from 15-37 breaths per minute in the last 24-hour period. Oxygen saturation is 97%, but has been documented from 73%-98% in the last 24- hour period on 2 liters oxygen via nasal cannula. I's and O's are documented as 1300/1300, all via t he right chest tube. HEENT: The patient was normocephalic and atraumatic. Conjunctivae were mildly pale, but they were a nicteric. NECK: There was mild jugular venous distention. He did have a tunneled right internal jugular dialy sis catheter (PermCath). CHEST: Lung paez were auscultated anteriorly on my exam and were mostly clear without any rales, r honchi or wheezing. He did have a right-sided chest tube in place. Diaphragmatic excursion shows air flow into both lung paez was bilaterally symmetrical. CARDIAC: Had a regular rate and rhythm. There were no rub or gallops. ABDOMEN: Distended with ascites, but nontender. There is no rebound, guarding or rigidity. EXTREMITIES: Have 1+ sacral edema. SKIN: Notable for right IJ PermCath, as well as right chest tube. NEUROLOGIC: The patient was somewhat confused, but was oriented. LABORATORY STUDIES: White count is 6.4, H and H is 9.8/30.1 with a platelet count of 56,000. There are 90% neutrophils, 6% lymphocytes, 4% monocytes. INR is 3.84. PTT 72.4. Sodium is 135, potassium 3.2, chloride is 104, bicarbonate 24, BUN/creatinine is 43/5.1 with glucose of 106. Phosphorus 3.1, magnesium is 1.9. Calcium is 7.0, but after correcting the albumin of 1.7, it comes to 8.7. AST/ALT is 22/25, alkaline phosphatase is 129. Paracentesis done on 04/22 revealed 25,000 WBCs, of which 28% were neutrophils. The fluid was described as clear. Sputum has grown out Klebsiella pneumoniae. S tool is positive for C. diff antigen. Chest x-ray from today shows a left-sided infiltrate that is un changed and a small improvement in the right-sided infiltrate. IMPRESSION AND PLAN: The patient is a 50-year-old gentleman with a known history of alcohol abuse, h epatitis C and cirrhosis, also with history of cocaine and heroin abuse intravenously, end-stage lino l disease on hemodialysis every Monday, and Monday at [facility], under the care of ano ther respiratory coordinator, via right IJ PermCath, brought to [facility] after being found to be l ethargic with 30 bags of heroin around him. His mentation improved following 2 doses of Narcan in ED. He remains hospitalized in the intensive care unit in septic shock secondary to aspiration pne umonia and remains on dobutamine (Levophed and vasopressin were stopped). The dobutamine is on accou nt of severe pulmonary hypertension noted on his echocardiogram. 1. In an attempt to help increase the patient's blood pressure further, we will increase his midodri ne from 10 mg orally every 12 hours to 10 mg orally 3 times a day. 2. The patient is to have hemodialysis tomorrow so that he can revert back to his Monday, , Monday schedule. Upon discharge, he is to resume hemodialysis at his outpatient center [facility] in [place], [place] under the care of his outpatient respiratory coordinator. 3. The patient has been thrombocytopenic during this hospitalization and has been noted to have suba cute thrombus in the left internal jugular vein. Out of concern for the possibility of heparin-induc ed thrombocytopenia, he is now on an argatroban infusion. Coagulation studies are as stated above. 4. The etiology of the patient's septic shock is presumed to be aspiration pneumonia for which he is currently on day #7 of meropenem with a total of 7-8 days plan. For his Clostridium difficile colit is, he is on intravenous Flagyl and oral vancomycin. 5. Management of the patient's right-sided chest tube as per surgery. 6. Given the fact that the patient is cirrhotic, his baseline blood pressure is not all that high to begin with and so a systolic blood pressure of 80-90 would seem reasonable for this patient. 7. I agree with discontinuing his arterial line. 8. Hematology followup is also appreciated and the patient's serotonin release acetate workup is pos sible heparin-induced thrombocytopenia and thrombocytosis is still pending. 9. For deep venous thrombosis prophylaxis, the argatroban infusion will suffice. 10. For gastrointestinal prophylaxis, continue famotidine 40 mg orally nightly. 11. Since the patient is off Levophed as well as vasopressin, continue to taper hydrocortisone to of f. 12. For prophylaxis against hepatic encephalopathy, continue lactulose at the current dose. 13. Next hemodialysis session will be tomorrow. 14. Although the patient is hypokalemic, I would not replete it at present since dialysis patients a re accustomed to fluctuations in the potassium level. Review of systems, past medical history, social history and family history were all reviewed and ther e were no new changes. More than 35 minutes were spent in the care of this ICU patient today. Jose Gonzalez MD cc: [phone] TT: 04/27/2016 14:43:50 Confirmation # [id number] Dictation # [id number] lobo
[2016-04-27] MEDS: DOBUTamine 500mg/250ml D5W 250 ML IV PRN (17:12)
[2016-04-27 17:52] LABS: ACETONE 7 mg/dL (()); ETHANOL None Detected (()); ISOPROPANOL None Detected (()); METHANOL None Detected (())
[2016-04-27] MEDS: Argatroban 250 MG in Dextrose 5% In Water 250 ML IV SCH (18:55)
--- NOTE | 2016-04-27 20:26 | PN ---
DATE: 04/27/2016 This is patient's hospital visit in the intensive care unit. For Dr. Latham. SUBJECTIVE: The patient is a 50-year-old male seen sitting up in bed in the intensive care unit hosp italized now for multiple medical problems in the intensive care unit, presently being treated with I V antibiotics for septic shock. He does suffer from chronic kidney disease on dialysis with respirat ory failure, pneumonia with encephalopathy now improved. He is in no acute distress. OBJECTIVE: PHYSICAL EXAMINATION: VITAL SIGNS: Temperature 98.4, pulse 79, respirations 15, blood pressure 122/46, pulse ox 96%. HEENT: Unremarkable. NECK: Mild JVD at 30 degrees. HEART: Regular rate. LUNGS: Right-sided chest tube, left side clear. ABDOMEN: Minimally distended, positive ascitic fluid wave, nontender. EXTREMITIES: Faint +1 edema. NEUROLOGIC: Awake, alert, but confused. SKIN: Warm, dry and clear. LABORATORY DATA: The patient's labs were done. White blood cell count 6.4, hemoglobin 9.8, hematocr it 30.1, platelet count of 56,000 with a chem metabolic panel showing a potassium of 3.2, BUN of 53, creatinine of 4.1 for dialysis tomorrow, calcium of 7.0, total protein 3.5, albumin 1.7. His INR tod ay was 3.84 with a PTT of 72.4. The patient's sputum on 04/21/2016 grew out Klebsiella pneumoniae. The patient had a chest x-ray earlier today. It was read as no change, left-sided infiltrate, slight improvement in right-sided infiltrate with a right chest tube in place. No pneumothorax apparent. ASSESSMENT: Includes septic shock, chronic kidney disease on dialysis, thrombocytopenia with subacut e thrombus, left internal jugular vein, on argatroban, aspiration pneumonia, Clostridium difficile en terocolitis, right side chest tube for pneumothorax, cirrhosis of the liver, IV drug abuse, hepatic e ncephalopathy, improved. Also hepatitis C positivity with hypoxic respiratory failure. PLAN: After conversation with Dr. Latham is to continue argatroban for now, continue with dialysis as per Dr. Gonzalez, continue ICU as per medical services coordinator recommendations. We will monitor clinically a nd with labs with thrombocytopenia workup in progress with the prognosis for this patient guarded. Jose Alejandro Ginger RILEY cc: [phone] TT: 04/27/2016 20:25:25 Confirmation # [id number] Dictation # [id number] rn
[2016-04-28 07:13] LABS: BASO # 0.01 K/mm3 (0.0-2.0); BASO % 0.1 % (0.0-3.0); GRAN # 7.14 (1.4-6.5); GRAN % 91.2 % (50.0-68.0); HEMATOCRIT 31.3 % (42.0-52.0); LYMPH # 0.3 (1.2-3.4); LYMPH % 4.1 % (22.0-35.0); MEAN CELL VOLUME 88.9 fL (80.0-105.0); MEAN CORPUSCULAR HEMOGLOBIN 29.3 pg (25.0-35.0); MEAN CORPUSCULAR HGB CONC 32.9 g/dl (31.0-37.0); MEAN PLATELET VOLUME 11.2 fl (7.0-11.0); MONO # 0.4 (0.1-0.6); MONO % 4.6 % (1.0-6.0); PLATELET COUNT 68 10^3/uL (120.0-450.0); RED CELL DISTRIBUTION WIDTH 15.9 % (11.5-14.5); WHITE BLOOD COUNT 7.8 10^3/ul (4.5-11.0)
[2016-04-28 07:15] LABS: BILIRUBIN,TOTAL 0.8 mg/dL (0.2-1.3); MAGNESIUM 1.9 mg/dL (1.7-2.2); PHOSPHOROUS 3.3 mg/dL (2.5-4.5); POTASSIUM 3.6 mmol/L (3.6-5.0); TOTAL PROTEIN 3.6 g/dL (5.8-8.3)
--- NOTE | 2016-04-28 07:44 | CP.PCM.PN ---
Subjective - Date & Time of Evaluation Date of Evaluation: 04/28/16 Time of Evaluation: 07:41 - Subjective Subjective: SURGERY NOTE FOR DR. HENAO 50M seen and examined at bedside. DEXTER. Complains of discomfort at chest tube site, 430cc/24hr from chest tube, serosang fluid. Objective - Vital Signs/Intake and Output Vital Signs (last 24 hours): Temp Pulse Resp BP Pulse Ox 98.7 F 84 15 96/75 L 95 04/28/16 00:00 04/28/16 05:29 04/28/16 05:29 04/28/16 05:00 04/28/16 02:01 Intake and Output: 04/28/16 04/28/16 06:59 18:59 Intake Total 831 Output Total 430 Balance 401 - Medications Medications: Current Medications Albuterol/Ipratropium (Duoneb 3 Mg/0.5 Mg (3 Ml) Ud) 3 ml IH [id number] PRN PRN Reason: Shortness of Breath Last Admin: 04/27/16 07:48 Dose: 3 ml Calcium Acetate (Phoslo) 667 mg PO WM SIMON Last Admin: 04/27/16 17:21 Dose: 667 mg Famotidine (Pepcid) 40 mg PO HS SMION Last Admin: 04/27/16 21:53 Dose: 40 mg Hydrocortisone Sodium Succinate (Solu-Cortef) 50 mg IVP Q6H SIMON Last Admin: 04/28/16 06:43 Dose: 50 mg Meropenem 500 mg/ Sodium (Chloride) 100 mls @ 100 mls/hr IVPB Q12 SIMON PRN Reason: Protocol Stop: 04/28/16 10:01 Last Admin: 04/27/16 21:52 Dose: 100 mls/hr Dobutamine HCl/Dextrose (Dobutamine/Dextrose 5% 500mg/250ml) 250 mls @ 6.017 mls/hr IV .Q24H PRN; Protocol; 2.5 MCG/KG/MIN PRN Reason: TITRATE PER PROTOCOL Last Admin: 04/27/16 17:12 Dose: 6.017 mls/hr Norepinephrine Bitartrate 4 mg (/ Dextrose) 254 mls @ 9 mls/hr IV .Q24H PRN; Protocol PRN Reason: TITRATE PER MD ORDER Last Titration: 04/25/16 18:59 Dose: 2 mcg/min Argatroban 250 mg/ Dextrose 252.5 mls @ 2.43 mls/hr IV .Q24H SIMON; 0.5 MCG/KG/ MIN PRN Reason: Protocol Last Admin: 04/27/16 18:55 Dose: 2.43 mls/hr Lactulose (Enulose) 20 gm PO DAILY SIMON Last Admin: 04/27/16 09:14 Dose: 20 gm Lorazepam (Ativan) 2 mg IVP Q2H PRN; Protocol PRN Reason: Agitation Last Admin: 04/28/16 03:12 Dose: 2 mg Midodrine (Proamatine) 10 mg PO TID SIMON Last Admin: 04/27/16 17:20 Dose: 10 mg Vancomycin HCl (Vancocin 25 Mg/Ml (Oral Use)) 125 mg PO QID SIMON PRN Reason: Protocol Last Admin: 04/27/16 22:11 Dose: 125 mg - Labs Labs: 04/28/16 06:30 04/28/16 06:30 PT 41.5 Seconds (9.9-11.8) H* 04/27/16 08:30 INR 3.84 (0.93-1.08) H* 04/27/16 08:30 APTT 72.4 Seconds (23.7-30.8) H* 04/27/16 08:30 - Constitutional Appears: Non-toxic, No Acute Distress - Head Exam Head Exam: ATRAUMATIC - Respiratory Exam Respiratory Exam: Clear to Ausculation Bilateral, NORMAL BREATHING PATTERN - Cardiovascular Exam Cardiovascular Exam: REGULAR RHYTHM, +S1, +S2 Additional comments: 430cc/24hrs serosang - GI/Abdominal Exam GI & Abdominal Exam: Soft. absent: Distended, Firm, Guarding, Rigid, Tenderness - Neurological Exam Neurological Exam: Alert, Awake - Skin Skin Exam: Dry, Intact, Normal Color, Warm Assessment and Plan - Assessment and Plan (Free Text) Assessment: 50M s/p R side chest tube placement POD#7 Plan: - CT: 430cc/24hr serosang, no air leaks - f/u chest x-ray result - monitor chest tube drainage - dressing changes daily - Continue ICU management Further recs discuss with Dr. Sebastián Soto, PGY1
[2016-04-28] MEDS: Morphine 2 mg/ml ISec IVP PRN ×2 (08:38→17:08)
--- NOTE | 2016-04-28 08:45 | CP.CCUPN ---
<Joan Beck - Last Filed: 04/28/16 10:44> CCU Subjective - Physician Review Subjective (Free Text): Pt s&e w ICU attending. DEXTER. Pt continue to have soft stool. Pt on Lactulose. Denies SOB, CP, ALEXANDER. Pt is resting comfortably. CT in place: 1L/24hrs. On Dobutamin and argatroban drips. Off pressors. PO tolerating. c/o legs pain. No swelling noted. Dobutamine will be DCed. He is planned for HD today. 04/28/16 10:44 CCU Objective - Vital Signs / Intake & Output Vital Signs (Last 4 hours): Vital Signs Temp Pulse Resp BP Pulse Ox 04/28/16 06:45 101 H 30 H 92 L 04/28/16 06:00 97.8 F 90 18 97/57 L 94 L 04/28/16 05:44 16 04/28/16 05:32 84 25 H 04/28/16 05:29 84 15 04/28/16 05:10 102 H 04/28/16 05:00 86 96/75 L 04/28/16 04:52 20 04/28/16 04:47 28 H 04/28/16 04:46 15 04/28/16 04:43 15 Intake and Output (Last 8hrs): Intake & Output 04/27/16 04/28/16 04/28/16 22:59 06:59 14:59 Intake Total 1221 831 Output Total 300 430 Balance 921 401 Intake: IV 201 231 Dobutamine 72 102 Argatroban 29 29 Antibiotic 100 100 Oral 1020 600 Output: Chest Tube Drainage 300 430 Right 300 430 Urine 0 Urine, Voided 0 Other: # Bowel Movements 3 - Physical Exam Head: Positive for: Atraumatic, Normocephalic Pupils: Positive for: PERRL Extroacular Muscles: Positive for: EOMI Conjunctiva: Positive for: Normal. Negative for: Injected, Icteric Mouth: Positive for: Moist Mucous Membranes Neck: Positive for: Normal Range of Motion Respiratory/Chest: Positive for: Decreased Breath Sounds, Other (CT on R chest: 500Lcc/24. SS .). Negative for: Accessory Muscle Use Cardiovascular: Positive for: Regular Rate and Rhythm, Normal S1, S2. Negative for: Murmurs Abdomen: Positive for: Distention, Normal Bowel Sounds. Negative for: Tenderness, Peritoneal Signs, Rebound Upper Extremity: Positive for: Edema. Negative for: Cyanosis Lower Extremity: Positive for: Tenderness. Negative for: CALF TENDERNESS Neurological: Positive for: GCS=15, CN II-XII Intact, Speech Normal Skin: Positive for: Warm, Dry, Normal Color. Negative for: Rashes Psychiatric: Positive for: Alert, Oriented x 3 - Medications Active Medications: Active Medications Generic Name Dose Route Start Last Admin Trade Name Freq PRN Reason Stop Dose Admin Albuterol/Ipratropium 3 ml 04/20/16 13:13 04/27/16 07:48 Duoneb 3 Mg/0.5 Mg (3 Ml) Ud IH 3 ml [id number] PRN Administration Shortness of Breath Calcium Acetate 667 mg 04/21/16 08:00 04/27/16 17:21 Phoslo PO 667 mg WM SIMON Administration Famotidine 40 mg 04/25/16 22:00 04/27/16 21:53 Pepcid PO 40 mg HS SIMON Administration Hydrocortisone Sodium Succinate 50 mg 04/22/16 08:30 04/28/16 06:43 Solu-Cortef IVP 50 mg Q6H SIMON Administration Meropenem 500 mg/ Sodium 100 mls @ 100 mls/hr 04/21/16 10:00 04/27/16 21:52 Chloride IVPB 04/28/16 10:01 100 mls/hr Q12 SIMON Administration Protocol Dobutamine HCl/Dextrose 250 mls @ 6.017 mls/hr 04/24/16 16:24 04/27/16 17:12 Dobutamine/Dextrose 5% 500mg/250ml IV 6.017 mls/hr .Q24H PRN Administration TITRATE PER PROTOCOL Protocol 2.5 MCG/KG/MIN Argatroban 250 mg/ Dextrose 252.5 mls @ 2.43 mls/hr 04/26/16 13:45 04/27/16 18: 55 IV 2.43 mls/hr .Q24H SIMON Administration Protocol 0.5 MCG/KG/MIN Lactulose 20 gm 04/24/16 10:00 04/27/16 09:14 Enulose PO 20 gm DAILY SIMON Administration Lorazepam 2 mg 04/21/16 08:41 04/28/16 03:12 Ativan IVP 2 mg Q2H PRN Administration Agitation Protocol Midodrine 10 mg 04/27/16 14:00 04/27/16 17:20 Proamatine PO 10 mg TID SIMON Administration Morphine Sulfate 2 mg 04/28/16 08:26 Morphine IVP Q6H PRN Pain, moderate (4-7) Vancomycin HCl 125 mg 04/23/16 18:00 04/27/16 22:11 Vancocin 25 Mg/Ml (Oral Use) PO 125 mg QID SIMON Administration Protocol - Patient Studies Lab Studies: Lab Studies 04/28/16 04/28/16 04/28/16 Range/Units 06:45 06:30 00:23 WBC 7.8 D (4.5-11.0) 10^3/ul RBC 3.52 (3.5-6.1) 10^6/uL Hgb 10.3 L (14.0-18.0) gm/dL Hct 31.3 L (42.0-52.0) % MCV 88.9 (80.0-105.0) fL MCH 29.3 (25.0-35.0) pg MCHC 32.9 (31.0-37.0) g/dl RDW 15.9 H (11.5-14.5) % Plt Count 68 L (120.0-450.0) 10^3/uL MPV 11.2 H (7.0-11.0) fl Gran % 91.2 H (50.0-68.0) % Lymph % (Auto) 4.1 L (22.0-35.0) % [place] % (Auto) 4.6 (1.0-6.0) % Eos % (Auto) 0.0 L (1.5-5.0) % Baso % (Auto) 0.1 (0.0-3.0) % Gran # 7.14 H (1.4-6.5) Lymph # 0.3 L (1.2-3.4) [place] # 0.4 (0.1-0.6) Eos # 0.0 (0.0-0.7) Baso # 0.01 (0.0-2.0) K/mm3 PT (9.9-11.8) Seconds INR (0.93-1.08) APTT (23.7-30.8) Seconds Sodium 132 (132-148) mmol/L Potassium 3.6 (3.6-5.0) mmol/L Chloride 101 (95-110) mmol/L Carbon Dioxide 24 (21-33) mmol/L Anion Gap 11 (10-20) BUN 66 H (7-21) mg/dL Creatinine 4.9 H (0.5-1.4) mg/dL Est GFR ( Amer) 15 Est GFR (Non-Af Amer) 13 POC Glucose (mg/dL) 116 H (65-110) mg/dL Random Glucose 106 (70-110) mg/dL Calcium 7.0 L (8.4-10.5) mg/dL Phosphorus 3.3 (2.5-4.5) mg/dL Magnesium 1.9 (1.7-2.2) mg/dL Total Bilirubin 0.8 (0.2-1.3) mg/dL AST 17 (15-59) U/L ALT 29 (7-56) U/L Alkaline Phosphatase 125 (38-133) U/L Ammonia < 9 L (9-33) umol/L Total Protein 3.6 L (5.8-8.3) g/dL Albumin 1.8 L (3.0-4.8) g/dL Globulin 1.8 gm/dL Albumin/Globulin Ratio 1.0 L (1.1-1.8) Ethanolamine (()) Fluid Albumin (()) g/dL Toxicology Panel (()) Methyl Alcohol Level (()) Isopropanol (()) Acetone Level (()) mg/dL 04/27/16 04/27/16 04/27/16 Range/Units 16:16 11:29 08:30 WBC (4.5-11.0) 10^3/ul RBC (3.5-6.1) 10^6/uL Hgb (14.0-18.0) gm/dL Hct (42.0-52.0) % MCV (80.0-105.0) fL MCH (25.0-35.0) pg MCHC (31.0-37.0) g/dl RDW (11.5-14.5) % Plt Count (120.0-450.0) 10^3/uL MPV (7.0-11.0) fl Gran % (50.0-68.0) % Lymph % (Auto) (22.0-35.0) % [place] % (Auto) (1.0-6.0) % Eos % (Auto) (1.5-5.0) % Baso % (Auto) (0.0-3.0) % Gran # (1.4-6.5) Lymph # (1.2-3.4) [place] # (0.1-0.6) Eos # (0.0-0.7) Baso # (0.0-2.0) K/mm3 PT 41.5 H* (9.9-11.8) Seconds INR 3.84 H* (0.93-1.08) APTT 72.4 H* (23.7-30.8) Seconds Sodium (132-148) mmol/L Potassium (3.6-5.0) mmol/L Chloride (95-110) mmol/L Carbon Dioxide (21-33) mmol/L Anion Gap (10-20) BUN (7-21) mg/dL Creatinine (0.5-1.4) mg/dL Est GFR ( Amer) Est GFR (Non-Af Amer) POC Glucose (mg/dL) 153 H 111 H (65-110) mg/dL Random Glucose (70-110) mg/dL Calcium (8.4-10.5) mg/dL Phosphorus (2.5-4.5) mg/dL Magnesium (1.7-2.2) mg/dL Total Bilirubin (0.2-1.3) mg/dL AST (15-59) U/L ALT (7-56) U/L Alkaline Phosphatase (38-133) U/L Ammonia (9-33) umol/L Total Protein (5.8-8.3) g/dL Albumin (3.0-4.8) g/dL Globulin gm/dL Albumin/Globulin Ratio (1.1-1.8) Ethanolamine (()) Fluid Albumin (()) g/dL Toxicology Panel (()) Methyl Alcohol Level (()) Isopropanol (()) Acetone Level (()) mg/dL 04/27/16 04/27/16 04/22/16 Range/Units 07:40 06:30 16:07 WBC (4.5-11.0) 10^3/ul RBC (3.5-6.1) 10^6/uL Hgb (14.0-18.0) gm/dL Hct (42.0-52.0) % MCV (80.0-105.0) fL MCH (25.0-35.0) pg MCHC (31.0-37.0) g/dl RDW (11.5-14.5) % Plt Count (120.0-450.0) 10^3/uL MPV (7.0-11.0) fl Gran % (50.0-68.0) % Lymph % (Auto) (22.0-35.0) % [place] % (Auto) (1.0-6.0) % Eos % (Auto) (1.5-5.0) % Baso % (Auto) (0.0-3.0) % Gran # (1.4-6.5) Lymph # (1.2-3.4) [place] # (0.1-0.6) Eos # (0.0-0.7) Baso # (0.0-2.0) K/mm3 PT (9.9-11.8) Seconds INR (0.93-1.08) APTT (23.7-30.8) Seconds Sodium (132-148) mmol/L Potassium (3.6-5.0) mmol/L Chloride (95-110) mmol/L Carbon Dioxide (21-33) mmol/L Anion Gap (10-20) BUN (7-21) mg/dL Creatinine (0.5-1.4) mg/dL Est GFR ( Amer) Est GFR (Non-Af Amer) POC Glucose (mg/dL) 115 H (65-110) mg/dL Random Glucose (70-110) mg/dL Calcium (8.4-10.5) mg/dL Phosphorus 3.1 (2.5-4.5) mg/dL Magnesium 1.9 (1.7-2.2) mg/dL Total Bilirubin (0.2-1.3) mg/dL AST (15-59) U/L ALT (7-56) U/L Alkaline Phosphatase (38-133) U/L Ammonia (9-33) umol/L Total Protein (5.8-8.3) g/dL Albumin (3.0-4.8) g/dL Globulin gm/dL Albumin/Globulin Ratio (1.1-1.8) Ethanolamine (()) Fluid Albumin 0.4 (()) g/dL Toxicology Panel (()) Methyl Alcohol Level (()) Isopropanol (()) Acetone Level (()) mg/dL 04/19/16 Range/Units 21:10 WBC (4.5-11.0) 10^3/ul RBC (3.5-6.1) 10^6/uL Hgb (14.0-18.0) gm/dL Hct (42.0-52.0) % MCV (80.0-105.0) fL MCH (25.0-35.0) pg MCHC (31.0-37.0) g/dl RDW (11.5-14.5) % Plt Count (120.0-450.0) 10^3/uL MPV (7.0-11.0) fl Gran % (50.0-68.0) % Lymph % (Auto) (22.0-35.0) % [place] % (Auto) (1.0-6.0) % Eos % (Auto) (1.5-5.0) % Baso % (Auto) (0.0-3.0) % Gran # (1.4-6.5) Lymph # (1.2-3.4) [place] # (0.1-0.6) Eos # (0.0-0.7) Baso # (0.0-2.0) K/mm3 PT (9.9-11.8) Seconds INR (0.93-1.08) APTT (23.7-30.8) Seconds Sodium (132-148) mmol/L Potassium (3.6-5.0) mmol/L Chloride (95-110) mmol/L Carbon Dioxide (21-33) mmol/L Anion Gap (10-20) BUN (7-21) mg/dL Creatinine (0.5-1.4) mg/dL Est GFR ( Amer) Est GFR (Non-Af Amer) POC Glucose (mg/dL) (65-110) mg/dL Random Glucose (70-110) mg/dL Calcium (8.4-10.5) mg/dL Phosphorus (2.5-4.5) mg/dL Magnesium (1.7-2.2) mg/dL Total Bilirubin (0.2-1.3) mg/dL AST (15-59) U/L ALT (7-56) U/L Alkaline Phosphatase (38-133) U/L Ammonia (9-33) umol/L Total Protein (5.8-8.3) g/dL Albumin (3.0-4.8) g/dL Globulin gm/dL Albumin/Globulin Ratio (1.1-1.8) Ethanolamine None detected (()) Fluid Albumin (()) g/dL Toxicology Panel see note (()) Methyl Alcohol Level None detected (()) Isopropanol None detected (()) Acetone Level 7 H (()) mg/dL Laboratory Results - last 24 hr 04/19/16 04/22/16 04/27/16 21:10 16:07 06:30 WBC RBC Hgb Hct MCV MCH MCHC RDW Plt Count MPV Gran % Lymph % (Auto) [place] % (Auto) Eos % (Auto) Baso % (Auto) Gran # Lymph # [place] # Eos # Baso # PT INR APTT Sodium Potassium Chloride Carbon Dioxide Anion Gap BUN Creatinine Est GFR ( Amer) Est GFR (Non-Af Amer) POC Glucose (mg/dL) Random Glucose Calcium Phosphorus 3.1 Magnesium 1.9 Total Bilirubin AST ALT Alkaline Phosphatase Ammonia Total Protein Albumin Globulin Albumin/Globulin Ratio Ethanolamine None detected Fluid Albumin 0.4 Toxicology Panel see note Methyl Alcohol Level None detected Isopropanol None detected Acetone Level 7 H 04/27/16 04/27/16 04/27/16 07:40 08:30 11:29 WBC RBC Hgb Hct MCV MCH MCHC RDW Plt Count MPV Gran % Lymph % (Auto) [place] % (Auto) Eos % (Auto) Baso % (Auto) Gran # Lymph # [place] # Eos # Baso # PT 41.5 H* INR 3.84 H* APTT 72.4 H* Sodium Potassium Chloride Carbon Dioxide Anion Gap BUN Creatinine Est GFR ( Amer) Est GFR (Non-Af Amer) POC Glucose (mg/dL) 115 H 111 H Random Glucose Calcium Phosphorus Magnesium Total Bilirubin AST ALT Alkaline Phosphatase Ammonia Total Protein Albumin Globulin Albumin/Globulin Ratio Ethanolamine Fluid Albumin Toxicology Panel Methyl Alcohol Level Isopropanol Acetone Level 04/27/16 04/28/16 04/28/16 16:16 00:23 06:30 WBC 7.8 D RBC 3.52 Hgb 10.3 L Hct 31.3 L MCV 88.9 MCH 29.3 MCHC 32.9 RDW 15.9 H Plt Count 68 L MPV 11.2 H Gran % 91.2 H Lymph % (Auto) 4.1 L [place] % (Auto) 4.6 Eos % (Auto) 0.0 L Baso % (Auto) 0.1 Gran # 7.14 H Lymph # 0.3 L [place] # 0.4 Eos # 0.0 Baso # 0.01 PT INR APTT Sodium 132 Potassium 3.6 Chloride 101 Carbon Dioxide 24 Anion Gap 11 BUN 66 H Creatinine 4.9 H Est GFR ( Amer) 15 Est GFR (Non-Af Amer) 13 POC Glucose (mg/dL) 153 H 116 H Random Glucose 106 Calcium 7.0 L Phosphorus 3.3 Magnesium 1.9 Total Bilirubin 0.8 AST 17 ALT 29 Alkaline Phosphatase 125 Ammonia Total Protein 3.6 L Albumin 1.8 L Globulin 1.8 Albumin/Globulin Ratio 1.0 L Ethanolamine Fluid Albumin Toxicology Panel Methyl Alcohol Level Isopropanol Acetone Level 04/28/16 06:45 WBC RBC Hgb Hct MCV MCH MCHC RDW Plt Count MPV Gran % Lymph % (Auto) [place] % (Auto) Eos % (Auto) Baso % (Auto) Gran # Lymph # [place] # Eos # Baso # PT INR APTT Sodium Potassium Chloride Carbon Dioxide Anion Gap BUN Creatinine Est GFR ( Amer) Est GFR (Non-Af Amer) POC Glucose (mg/dL) Random Glucose Calcium Phosphorus Magnesium Total Bilirubin AST ALT Alkaline Phosphatase Ammonia < 9 L Total Protein Albumin Globulin Albumin/Globulin Ratio Ethanolamine Fluid Albumin Toxicology Panel Methyl Alcohol Level Isopropanol Acetone Level Fingerstick Blood Sugar Results: 111 Review of Systems - Constitutional Constitutional: absent: Fever, Chills - EENT Eyes: absent: Blurred Vision Ears: absent: Decreased Hearing Nose/Mouth/Throat: absent: Epistaxis - Cardiovascular Cardiovascular: absent: Chest Pain, Chest Pain at Rest, Dyspnea Critical Care Progress Note - Ventilator Checklist Head of Bed 30 Degrees: Yes Daily Sedation Vacation: No PUD Prophalyxis: Yes DVT Prophylaxis: Yes - Nutrition Nutrition: Nutrition Category Date Time Status Renal Diet [DIET] Diets 04/23/16 Dinner Ordered Assessment/Plan - Assessment and Plan (Free Text) Assessment: 50 yo male with PMH of ESRD on HD (T,TH,S) cirrhosis, hep C, alcohol abuse, and h/o cocaine and heroin use presented with septic shock 2/2 aspiration PNA with multiorgan failure. He had hypoxemic respiratory failure and AMS. Surgery placed a chest tube on right side Right femoral central line placed: Improved. Plan: Neuro: AAO x3 - initially presented with AMS - ativan PRN, Morphine PRN - treating empirically for hepatic encephalopathy - cont to monitor cardio - spetic shock with hypotension: Resolved. - DC Dobutamin drips - arterial line DCed - midodrine BID - echo should EF for 50% with severe pulmonary HTN and bioprosthesis valve - cont to monitor - cardiology following pulm - hypoxemic respiratory failure 2/2 aspiration PNE: Resolved - CTA showed no PE, bilateral pleural effusions R>L - repeat cxr : b/l infiltrate - Chest tube is on without air leaks and produced 500cc of serosanganous fluid/ 24hrs - surgery following - NC O2 5L - cont to monitor - aspiration precaution, HOB >35 GI: C-diff ag + - h/o hep c, cirrhosis, and ascites - abd US showed moderate ascites with mild hepatosplenomegaly and moderate bilateral pleural effusions - on lactulose for empiric treatment for hepatic encephalopathy - titrate lactulose to 2-3 BM per day - s/p paracentesis: 2L out - GI following - Renal diet - Pepcid ppx - Vanc - May renew flagyl Renal - ESRD on HD : HD today - nephro following, Dr. Gonzalez - monitor electrolytes, replace as needed endo - maintain euglycemia ID - septic shock 2/2 aspiration PNA, C-diff, Sputum cx: Klebsiella - afebrile, no leukocytosis - cont meropenem and vanco - blood cx neg - maintain normothermia - ID following, Dr. Millard DVT: + for LUE , L IJ -Heparin drip DCed for HIT -on argatroban drip: Impaired Hepatic protocol (Child Gomez score B) 0.5/kg/hr -F/U serotonin assay, HIT labs -PT/OT Disposition: When finished Argatroban, ok to transfer out of ICU. <MichaelKevin gilbert - Last Filed: 04/28/16 12:06> CCU Objective - Vital Signs / Intake & Output Vital Signs (Last 4 hours): Vital Signs Pulse Resp BP Pulse Ox 04/28/16 10:02 79 75 H 95/59 L 91 L 04/28/16 10:00 80 28 H 91 L 04/28/16 09:00 76 27 H 116/62 88 L Intake and Output (Last 8hrs): Intake & Output 04/27/16 04/28/16 04/28/16 22:59 06:59 14:59 Intake Total 1221 831 Output Total 300 430 Balance 921 401 Intake: IV 201 231 Dobutamine 72 102 Argatroban 29 29 Antibiotic 100 100 Oral 1020 600 Output: Chest Tube Drainage 300 430 Right 300 430 Urine 0 Urine, Voided 0 Other: # Bowel Movements 3 - Medications Active Medications: Active Medications Generic Name Dose Route Start Last Admin Trade Name Freq PRN Reason Stop Dose Admin Albuterol/Ipratropium 3 ml 04/20/16 13:13 04/27/16 07:48 Duoneb 3 Mg/0.5 Mg (3 Ml) Ud IH 3 ml [id number] PRN Administration Shortness of Breath Calcium Acetate 667 mg 04/21/16 08:00 04/28/16 12:02 Phoslo PO 667 mg WM SIMON Administration Famotidine 40 mg 04/25/16 22:00 04/27/16 21:53 Pepcid PO 40 mg HS SIMON Administration Hydrocortisone Sodium Succinate 50 mg 04/22/16 08:30 04/28/16 09:47 Solu-Cortef IVP Not Given Q6H SIMON Argatroban 250 mg/ Dextrose 252.5 mls @ 2.43 mls/hr 04/26/16 13:45 04/27/16 18: 55 IV 2.43 mls/hr .Q24H SIMON Administration Protocol 0.5 MCG/KG/MIN Lactulose 20 gm 04/24/16 10:00 04/28/16 09:46 Enulose PO 20 gm DAILY SIMON Administration Lorazepam 2 mg 04/21/16 08:41 04/28/16 08:37 Ativan IVP 2 mg Q2H PRN Administration Agitation Protocol Midodrine 10 mg 04/27/16 14:00 04/28/16 09:46 Proamatine PO 10 mg TID SIMON Administration Morphine Sulfate 2 mg 04/28/16 08:26 04/28/16 08:38 Morphine IVP 2 mg Q6H PRN Administration Pain, moderate (4-7) Vancomycin HCl 125 mg 04/23/16 18:00 04/28/16 09:46 Vancocin 25 Mg/Ml (Oral Use) PO 125 mg QID SIMON Administration Protocol - Patient Studies Lab Studies: Lab Studies 04/28/16 04/28/16 04/28/16 Range/Units 08:20 06:45 06:30 WBC 7.8 D (4.5-11.0) 10^3/ul RBC 3.52 (3.5-6.1) 10^6/uL Hgb 10.3 L (14.0-18.0) gm/dL Hct 31.3 L (42.0-52.0) % MCV 88.9 (80.0-105.0) fL MCH 29.3 (25.0-35.0) pg MCHC 32.9 (31.0-37.0) g/dl RDW 15.9 H (11.5-14.5) % Plt Count 68 L (120.0-450.0) 10^3/uL Manual Plt Count 80 L (120-450) K/mm3 MPV 11.2 H (7.0-11.0) fl Gran % 91.2 H (50.0-68.0) % Lymph % (Auto) 4.1 L (22.0-35.0) % [place] % (Auto) 4.6 (1.0-6.0) % Eos % (Auto) 0.0 L (1.5-5.0) % Baso % (Auto) 0.1 (0.0-3.0) % Gran # 7.14 H (1.4-6.5) Lymph # 0.3 L (1.2-3.4) [place] # 0.4 (0.1-0.6) Eos # 0.0 (0.0-0.7) Baso # 0.01 (0.0-2.0) K/mm3 PT 40.8 H* (9.9-11.8) Seconds INR 3.78 H* (0.93-1.08) APTT 60.1 H (23.7-30.8) Seconds Sodium 132 (132-148) mmol/L Potassium 3.6 (3.6-5.0) mmol/L Chloride 101 (95-110) mmol/L Carbon Dioxide 24 (21-33) mmol/L Anion Gap 11 (10-20) BUN 66 H (7-21) mg/dL Creatinine 4.9 H (0.5-1.4) mg/dL Est GFR ( Amer) 15 Est GFR (Non-Af Amer) 13 POC Glucose (mg/dL) (65-110) mg/dL Random Glucose 106 (70-110) mg/dL Calcium 7.0 L (8.4-10.5) mg/dL Phosphorus 3.3 (2.5-4.5) mg/dL Magnesium 1.9 (1.7-2.2) mg/dL Total Bilirubin 0.8 (0.2-1.3) mg/dL AST 17 (15-59) U/L ALT 29 (7-56) U/L Alkaline Phosphatase 125 (38-133) U/L Ammonia < 9 L (9-33) umol/L Total Protein 3.6 L (5.8-8.3) g/dL Albumin 1.8 L (3.0-4.8) g/dL Globulin 1.8 gm/dL Albumin/Globulin Ratio 1.0 L (1.1-1.8) Ethanolamine (()) Fluid Albumin (()) g/dL Toxicology Panel (()) Methyl Alcohol Level (()) Isopropanol (()) Acetone Level (()) mg/dL 04/28/16 04/27/16 04/27/16 Range/Units 00:23 16:16 11:29 WBC (4.5-11.0) 10^3/ul RBC (3.5-6.1) 10^6/uL Hgb (14.0-18.0) gm/dL Hct (42.0-52.0) % MCV (80.0-105.0) fL MCH (25.0-35.0) pg MCHC (31.0-37.0) g/dl RDW (11.5-14.5) % Plt Count (120.0-450.0) 10^3/uL Manual Plt Count (120-450) K/mm3 MPV (7.0-11.0) fl Gran % (50.0-68.0) % Lymph % (Auto) (22.0-35.0) % [place] % (Auto) (1.0-6.0) % Eos % (Auto) (1.5-5.0) % Baso % (Auto) (0.0-3.0) % Gran # (1.4-6.5) Lymph # (1.2-3.4) [place] # (0.1-0.6) Eos # (0.0-0.7) Baso # (0.0-2.0) K/mm3 PT (9.9-11.8) Seconds INR (0.93-1.08) APTT (23.7-30.8) Seconds Sodium (132-148) mmol/L Potassium (3.6-5.0) mmol/L Chloride (95-110) mmol/L Carbon Dioxide (21-33) mmol/L Anion Gap (10-20) BUN (7-21) mg/dL Creatinine (0.5-1.4) mg/dL Est GFR ( Amer) Est GFR (Non-Af Amer) POC Glucose (mg/dL) 116 H 153 H 111 H (65-110) mg/dL Random Glucose (70-110) mg/dL Calcium (8.4-10.5) mg/dL Phosphorus (2.5-4.5) mg/dL Magnesium (1.7-2.2) mg/dL Total Bilirubin (0.2-1.3) mg/dL AST (15-59) U/L ALT (7-56) U/L Alkaline Phosphatase (38-133) U/L Ammonia (9-33) umol/L Total Protein (5.8-8.3) g/dL Albumin (3.0-4.8) g/dL Globulin gm/dL Albumin/Globulin Ratio (1.1-1.8) Ethanolamine (()) Fluid Albumin (()) g/dL Toxicology Panel (()) Methyl Alcohol Level (()) Isopropanol (()) Acetone Level (()) mg/dL 04/27/16 04/22/16 04/19/16 Range/Units 07:40 16:07 21:10 WBC (4.5-11.0) 10^3/ul RBC (3.5-6.1) 10^6/uL Hgb (14.0-18.0) gm/dL Hct (42.0-52.0) % MCV (80.0-105.0) fL MCH (25.0-35.0) pg MCHC (31.0-37.0) g/dl RDW (11.5-14.5) % Plt Count (120.0-450.0) 10^3/uL Manual Plt Count (120-450) K/mm3 MPV (7.0-11.0) fl Gran % (50.0-68.0) % Lymph % (Auto) (22.0-35.0) % [place] % (Auto) (1.0-6.0) % Eos % (Auto) (1.5-5.0) % Baso % (Auto) (0.0-3.0) % Gran # (1.4-6.5) Lymph # (1.2-3.4) [place] # (0.1-0.6) Eos # (0.0-0.7) Baso # (0.0-2.0) K/mm3 PT (9.9-11.8) Seconds INR (0.93-1.08) APTT (23.7-30.8) Seconds Sodium (132-148) mmol/L Potassium (3.6-5.0) mmol/L Chloride (95-110) mmol/L Carbon Dioxide (21-33) mmol/L Anion Gap (10-20) BUN (7-21) mg/dL Creatinine (0.5-1.4) mg/dL Est GFR ( Amer) Est GFR (Non-Af Amer) POC Glucose (mg/dL) 115 H (65-110) mg/dL Random Glucose (70-110) mg/dL Calcium (8.4-10.5) mg/dL Phosphorus (2.5-4.5) mg/dL Magnesium (1.7-2.2) mg/dL Total Bilirubin (0.2-1.3) mg/dL AST (15-59) U/L ALT (7-56) U/L Alkaline Phosphatase (38-133) U/L Ammonia (9-33) umol/L Total Protein (5.8-8.3) g/dL Albumin (3.0-4.8) g/dL Globulin gm/dL Albumin/Globulin Ratio (1.1-1.8) Ethanolamine None detected (()) Fluid Albumin 0.4 (()) g/dL Toxicology Panel see note (()) Methyl Alcohol Level None detected (()) Isopropanol None detected (()) Acetone Level 7 H (()) mg/dL Laboratory Results - last 24 hr 04/19/16 04/22/16 04/27/16 21:10 16:07 07:40 WBC RBC Hgb Hct MCV MCH MCHC RDW Plt Count Manual Plt Count MPV Gran % Lymph % (Auto) [place] % (Auto) Eos % (Auto) Baso % (Auto) Gran # Lymph # [place] # Eos # Baso # PT INR APTT Sodium Potassium Chloride Carbon Dioxide Anion Gap BUN Creatinine Est GFR ( Amer) Est GFR (Non-Af Amer) POC Glucose (mg/dL) 115 H Random Glucose Calcium Phosphorus Magnesium Total Bilirubin AST ALT Alkaline Phosphatase Ammonia Total Protein Albumin Globulin Albumin/Globulin Ratio Ethanolamine None detected Fluid Albumin 0.4 Toxicology Panel see note Methyl Alcohol Level None detected Isopropanol None detected Acetone Level 7 H 04/27/16 04/27/16 04/28/16 11:29 16:16 00:23 WBC RBC Hgb Hct MCV MCH MCHC RDW Plt Count Manual Plt Count MPV Gran % Lymph % (Auto) [place] % (Auto) Eos % (Auto) Baso % (Auto) Gran # Lymph # [place] # Eos # Baso # PT INR APTT Sodium Potassium Chloride Carbon Dioxide Anion Gap BUN Creatinine Est GFR ( Amer) Est GFR (Non-Af Amer) POC Glucose (mg/dL) 111 H 153 H 116 H Random Glucose Calcium Phosphorus Magnesium Total Bilirubin AST ALT Alkaline Phosphatase Ammonia Total Protein Albumin Globulin Albumin/Globulin Ratio Ethanolamine Fluid Albumin Toxicology Panel Methyl Alcohol Level Isopropanol Acetone Level 04/28/16 04/28/16 04/28/16 06:30 06:45 08:20 WBC 7.8 D RBC 3.52 Hgb 10.3 L Hct 31.3 L MCV 88.9 MCH 29.3 MCHC 32.9 RDW 15.9 H Plt Count 68 L Manual Plt Count 80 L MPV 11.2 H Gran % 91.2 H Lymph % (Auto) 4.1 L [place] % (Auto) 4.6 Eos % (Auto) 0.0 L Baso % (Auto) 0.1 Gran # 7.14 H Lymph # 0.3 L [place] # 0.4 Eos # 0.0 Baso # 0.01 PT 40.8 H* INR 3.78 H* APTT 60.1 H Sodium 132 Potassium 3.6 Chloride 101 Carbon Dioxide 24 Anion Gap 11 BUN 66 H Creatinine 4.9 H Est GFR ( Amer) 15 Est GFR (Non-Af Amer) 13 POC Glucose (mg/dL) Random Glucose 106 Calcium 7.0 L Phosphorus 3.3 Magnesium 1.9 Total Bilirubin 0.8 AST 17 ALT 29 Alkaline Phosphatase 125 Ammonia < 9 L Total Protein 3.6 L Albumin 1.8 L Globulin 1.8 Albumin/Globulin Ratio 1.0 L Ethanolamine Fluid Albumin Toxicology Panel Methyl Alcohol Level Isopropanol Acetone Level Critical Care Progress Note - Nutrition Nutrition: Nutrition Category Date Time Status Renal Diet [DIET] Diets 04/23/16 Dinner Ordered Attending/Attestation - Attestation I have personally seen and examined this patient.: Yes I have fully participated in the care of the patient.: Yes I have reviewed all pertinent clinical information: Yes Notes (Text): 04/28/16 12:04 The patient was seen and examined at the bedside. Patient care was discussed with resident Medical records, lab studies, and imaging were reviewed and management issues were discussed and formulated. Last 24H events reviewed. Agree with above treatment plans as outlined in 's note with addition of the following: -hemodynamic monitoring to maintain MAP>65 -continue midodrine; and d\c dobutamine -o2 supplementation to maintain Spo2 >90 Pao2>60; comfortable on NC -s\p chest tube placement -no air leak noted; surgical team following -f\u repeat CXR -continue broad spectrum Abx as per ID team ; f\u cultures -continue lactulose; GI team f\u -f\u Bun\Cr and HD as per renal team -PO diet and aspiration precautions -f\u HIT work up ; hematology eval appreciated;continue argatroban and f\u PTT and monitor platelet counts that are improving -monitor closely for bleeding and f\u serial CBC -DVT \ PUD prophylaxis CCM f\u 35min
[2016-04-28 08:48] LABS: PARTIAL THROMBOPLASTIN TIME 60.1 Seconds (23.7-30.8)
[2016-04-28 08:48] LABS: ADD MANUAL DIFF? NO
[2016-04-28 08:55] LABS: INR 3.78 (0.93-1.08)
[2016-04-28] MEDS: Vancomycin 25 MG/ML PO SCH ×4 (09:46→21:54)
--- NOTE | 2016-04-28 09:46 | RAD ---
HISTORY: evaluate right chest tube and infiltrates COMPARISON: 04/27/2026 FINDINGS: LUNGS: Stable left-sided opacity. Followup to clearing to rule out underlying neoplasm. No other opacity elsewhere. PLEURA: Right chest tube. No pneumothorax. No pleural effusion. CARDIOVASCULAR: Oval heart size. Sternotomy wires. Mitral valvular prosthesis. OSSEOUS STRUCTURES: No significant abnormalities. VISUALIZED UPPER ABDOMEN: Normal. OTHER FINDINGS: None. IMPRESSION: Stable ovoid opacity at left base. Rule out neoplasm. Followup advised. Right chest tube without evidence of pneumothorax.
[2016-04-28] MEDS: Meropenem 500 MG in Sodium Chloride 0.9% 100 ML IVPB SCH (09:50)
--- NOTE | 2016-04-28 13:19 | PN ---
DATE: 04/28/2016 SUBJECTIVE: The patient was seen in the intensive care unit. One-to-one is present at bedside. He is eating his meal comfortably. He remains on argatroban infusion. He denies any complaints. Of no te, he continues to have right-sided chest tube in place. He is not on any pressors nor on any inotr opes. OBJECTIVE: VITAL SIGNS: Blood pressure is 95/59 with a minimum blood pressure of 86/51 in the last 24-hour tiffanie od and a maximum of 117/70. Heart rate is 79, but has ranged from the 70s to approximately 100 beats per minute in the last 24-hour period. Oral temperature is 97.8 and the patient has been afebrile f or the last 48-hour period. Respiratory rate is 27 breaths per minute, but has ranged from 15-31 janessa aths per minute in the last 24-hour period. Oxygen saturation is 91%, but has ranged from 88-95% in the last 24-hour period on 2 L via nasal cannula. I's and O's in the last 24-hour period are documen yumiko as . The patient did have hemodialysis earlier today as well. HEENT: The patient appears chronically ill, but is normocephalic and atraumatic. There is no sinus tenderness. He was anicteric, although he did have an ashy complexion to his skin and conjunctivae w ere not pale. CHEST: Lungs paez were auscultated anteriorly and were clear without any rales, rhonchi or wheezin g. Diaphragmatic excursion and airflow into both lung paez was bilaterally symmetrical. The patie nt did have a right-sided chest tube. CARDIAC: Had a regular rate and rhythm without any rubs or gallops. ABDOMEN: Distended with ascites, but nontender and there was no rebounding, guarding or rigidity. I was unable to appreciate any hepatosplenomegaly on account of his ascites. EXTREMITIES: Had 2+ sacral edema. Of note, he also had a right internal jugular PermCath as well. NEUROLOGIC: He was alert and oriented x 3 and nonfocal. VASCULAR: Had no bruits. LABORATORY STUDIES: As follows: White count is 7.8, H and H is 10.3/31.3 with a platelet count that is 80,000 now. There are 91% neutrophils, 4% lymphocytes, 5% monocytes. Sodium is 132, potassium 3 .6, chloride is 101, bicarbonate 24, BUN/creatinine 66/4.9 with a glucose of 106. Calcium is 7, but after correcting for the albumin of 1.8, it corrects to approximately 8.6 which is within normal limi ts. Phosphorus is 3.3, magnesium is 1.9. Ammonia level is less than 9. There is no new microbiolog y data to report and chest x-ray from today reveals a stable ovoid opacity at the left base concernin g for neoplasm. Right chest tube is in place without any evidence of pneumothorax. IMPRESSION AND PLAN: The patient is a 50-year-old gentleman with a known history of alcohol abuse, h epatitis C and cirrhosis, history of intravenous cocaine and heroin use, end-stage renal disease on h emodialysis every Monday, , Monday at [facility] via right internal jugular PermCath, br ought into [facility] after being found to be lethargic and surrounded by 30 bags of hero in. He received 2 doses of Narcan in the Emergency Department with improvement in his mental status. Since being hospitalized, he remains in the intensive care unit, having had septic shock secondary to aspiration pneumonia. Levophed, vasopressin and now dobutamine have all been weaned off. Of note , echocardiogram did reveal severe pulmonary hypertension. 1. The patient's blood pressure is reasonable and a systolic blood pressure between 80-90 would appe ar to be baseline for this patient with cirrhosis. We will continue him on midodrine 10 mg orally 3 times a day. 2. While the patient had been on pressors, he was also on hydrocortisone 50 mg intravenously every 6 hours. I would continue to taper this to eventually off. 3. Phosphorus and calcium are at goal and we will continue current dose of calcium acetate 667 mg or ally with each meal. 4. The patient had his hemodialysis today which he tolerated well. After today, his next one will b e on Monday and we will continue Monday, , Monday schedule. 5. Management of right-sided chest tube as per surgery. Given the finding on chest x-ray that is barone spicious for malignancy, consider CT scan of his chest. 6. The patient is noted to be Clostridium difficile antigen positive for which he remains on vancomy jesse 125 mg orally every 6 hours. 7. The patient has also been noted to have a left internal jugular vein thrombosis with suspected he connie-induced thrombocytopenia for which he is now on an argatroban infusion. We will defer to hemat ologist to where the clinical standpoint should be as far as getting the patient off argatroban or sw itching him to another anticoagulant. 8. For gastrointestinal prophylaxis, the patient remains on famotidine. 9. For hepatic encephalopathy, continue lactulose. His most recent ammonia level is not elevated. 10. Once the patient is off argatroban, he is to be transferred out of the intensive care unit and I agree with this. Via the chart, review of systems, past medical history, social history and family history were all re viewed and there were no new changes. More than 35 minutes were spent in the care of this ICU patient today. Jose Gonzalez MD cc: [phone] TT: 04/28/2016 13:19:05 Confirmation # [id number] Dictation # [id number] tn
[2016-04-28] MEDS: Argatroban 250 MG in Dextrose 5% In Water 250 ML IV SCH (14:44)
--- NOTE | 2016-04-28 14:50 | CP.PCM.PN ---
Subjective - Date & Time of Evaluation Date of Evaluation: 04/28/16 Time of Evaluation: 09:00 - Subjective Subjective: Comfortable in bed, still with loose stools, but remains afebrile, breathing well, no cough, less pain on the right side of the chest. Objective - Vital Signs/Intake and Output Vital Signs (last 24 hours): Temp Pulse Resp BP Pulse Ox 98.7 F 81 21 98/70 L 94 L 04/28/16 00:00 04/28/16 02:00 04/28/16 02:00 04/28/16 02:00 04/28/16 02:00 Intake and Output: 04/27/16 04/28/16 18:59 06:59 Intake Total 1221 Output Total 300 Balance 921 - Medications Medications: Current Medications Albuterol/Ipratropium (Duoneb 3 Mg/0.5 Mg (3 Ml) Ud) 3 ml IH [id number] PRN PRN Reason: Shortness of Breath Last Admin: 04/27/16 07:48 Dose: 3 ml Calcium Acetate (Phoslo) 667 mg PO WM SIMON Last Admin: 04/27/16 17:21 Dose: 667 mg Famotidine (Pepcid) 40 mg PO HS SIMON Last Admin: 04/27/16 21:53 Dose: 40 mg Hydrocortisone Sodium Succinate (Solu-Cortef) 50 mg IVP Q6H SIMON Last Admin: 04/27/16 21:52 Dose: 50 mg Meropenem 500 mg/ Sodium (Chloride) 100 mls @ 100 mls/hr IVPB Q12 SIMON PRN Reason: Protocol Stop: 04/28/16 10:01 Last Admin: 04/27/16 21:52 Dose: 100 mls/hr Dobutamine HCl/Dextrose (Dobutamine/Dextrose 5% 500mg/250ml) 250 mls @ 6.017 mls/hr IV .Q24H PRN; Protocol; 2.5 MCG/KG/MIN PRN Reason: TITRATE PER PROTOCOL Last Admin: 04/27/16 17:12 Dose: 6.017 mls/hr Norepinephrine Bitartrate 4 mg (/ Dextrose) 254 mls @ 9 mls/hr IV .Q24H PRN; Protocol PRN Reason: TITRATE PER MD ORDER Last Titration: 04/25/16 18:59 Dose: 2 mcg/min Argatroban 250 mg/ Dextrose 252.5 mls @ 2.43 mls/hr IV .Q24H SIMON; 0.5 MCG/KG/ MIN PRN Reason: Protocol Last Admin: 04/27/16 18:55 Dose: 2.43 mls/hr Lactulose (Enulose) 20 gm PO DAILY SIMON Last Admin: 04/27/16 09:14 Dose: 20 gm Lorazepam (Ativan) 2 mg IVP Q2H PRN; Protocol PRN Reason: Agitation Last Admin: 04/28/16 03:12 Dose: 2 mg Midodrine (Proamatine) 10 mg PO TID SIMON Last Admin: 04/27/16 17:20 Dose: 10 mg Vancomycin HCl (Vancocin 25 Mg/Ml (Oral Use)) 125 mg PO QID SIMON PRN Reason: Protocol Last Admin: 04/27/16 22:11 Dose: 125 mg - Labs Labs: 04/27/16 06:00 04/27/16 06:00 PT 41.5 Seconds (9.9-11.8) H* 04/27/16 08:30 INR 3.84 (0.93-1.08) H* 04/27/16 08:30 APTT 72.4 Seconds (23.7-30.8) H* 04/27/16 08:30 - Constitutional Appears: Non-toxic, No Acute Distress - Head Exam Head Exam: NORMAL INSPECTION - ENT Exam ENT Exam: Mucous Membranes Moist - Neck Exam Neck Exam: absent: Lymphadenopathy, Meningismus - Respiratory Exam Respiratory Exam: Decreased Breath Sounds Additional comments: right chest wall chest tube in place with serosanguinous fluid - Cardiovascular Exam Cardiovascular Exam: +S1, +S2 Additional comments: right anterior chest wall permacath site intact and clean - GI/Abdominal Exam GI & Abdominal Exam: Soft. absent: Tenderness - Extremities Exam Additional comments: right femoral central venous catheter site intact and clean; left femoral arterial line site intact and clean Assessment and Plan - Assessment and Plan (Free Text) Plan: Assessment Septic shock with multiorgan dysfunction syndrome (MODS) with acute toxic- metabolic encephalopathy, chronic renal failure, hypoxic respiratory failure (S/ P ventilator-dependence) with probable right sided severe healthcare-associated pneumonia with Klebsiella (ESBL-producing, multidrug-resistant) with pleural effusion S/P chest tube placement POD #7 in a patient who possibly overdosed on heroin; patient has clinically improved, is not encephalopathic currently and is off the ventilator and continues to breathe well on his own C. diff associated diarrhea, slowly improving CAD S/P CABG ESRD on HD history of lymphadenopathy Plan on Meropenem (day 8 - target 7-8 days), PO Vanco and IV Flagyl (day 6 - target 10 days total but may consider discontinuing IV Flagyl in the next 24 hours); sputum cx grew Klebsiella (ESBL-producing, multidrug-resistant) ; blood cx are negative; reviewed CXR and CT chest; patient has clinically improved - will d/c merrem and observe Recommend removal or change site of femoral lines when feasible to decrease the risk of infections will continue to monitor closely
--- NOTE | 2016-04-28 15:17 | CP.PCM.PN ---
<Leonel Pierre - Last Filed: 04/28/16 15:27> Subjective - Date & Time of Evaluation Date of Evaluation: 04/28/16 Time of Evaluation: 15:14 - Subjective Subjective: Pt seen and examined at bedside. Pt states he slept well overnight and has no complaints at this time. Pt has chest tube in place with 430 cc of output last night. Dobutamine rasied to 5 mcg last night. Denies CP, SOB, N/V/D. Objective - Vital Signs/Intake and Output Vital Signs (last 24 hours): Temp Pulse Resp BP Pulse Ox 97.8 F 79 75 H 95/59 L 91 L 04/28/16 06:00 04/28/16 10:02 04/28/16 10:02 04/28/16 10:02 04/28/16 10:02 Intake and Output: 04/28/16 04/28/16 06:59 18:59 Intake Total 831 Output Total 430 Balance 401 - Medications Medications: Current Medications Albuterol/Ipratropium (Duoneb 3 Mg/0.5 Mg (3 Ml) Ud) 3 ml IH [id number] PRN PRN Reason: Shortness of Breath Last Admin: 04/27/16 07:48 Dose: 3 ml Calcium Acetate (Phoslo) 667 mg PO WM SIMON Last Admin: 04/28/16 12:02 Dose: 667 mg Famotidine (Pepcid) 40 mg PO HS SIMON Last Admin: 04/27/16 21:53 Dose: 40 mg Hydrocortisone Sodium Succinate (Solu-Cortef) 50 mg IVP Q12 SIMON Argatroban 250 mg/ Dextrose 252.5 mls @ 2.43 mls/hr IV .Q24H SIMON; 0.5 MCG/KG/ MIN PRN Reason: Protocol Last Admin: 04/28/16 14:44 Dose: 2.43 mls/hr Lactulose (Enulose) 20 gm PO DAILY SIMON Last Admin: 04/28/16 09:46 Dose: 20 gm Lorazepam (Ativan) 2 mg IVP Q2H PRN; Protocol PRN Reason: Agitation Last Admin: 04/28/16 08:37 Dose: 2 mg Midodrine (Proamatine) 10 mg PO TID SIMON Last Admin: 04/28/16 14:42 Dose: 10 mg Morphine Sulfate (Morphine) 2 mg IVP Q6H PRN PRN Reason: Pain, moderate (4-7) Last Admin: 04/28/16 08:38 Dose: 2 mg Vancomycin HCl (Vancocin 25 Mg/Ml (Oral Use)) 125 mg PO QID SIMON PRN Reason: Protocol Last Admin: 04/28/16 14:42 Dose: 125 mg - Labs Labs: 04/28/16 06:30 04/28/16 06:30 PT 40.8 Seconds (9.9-11.8) H* 04/28/16 08:20 INR 3.78 (0.93-1.08) H* 04/28/16 08:20 APTT 60.1 Seconds (23.7-30.8) H 04/28/16 08:20 - Constitutional Appears: Well, No Acute Distress - Head Exam Head Exam: ATRAUMATIC, NORMAL INSPECTION, NORMOCEPHALIC - ENT Exam ENT Exam: Mucous Membranes Moist, Normal Exam - Respiratory Exam Respiratory Exam: Clear to Ausculation Bilateral, NORMAL BREATHING PATTERN. absent: Rhonchi, Wheezes - Cardiovascular Exam Cardiovascular Exam: RRR, +S1, +S2 - GI/Abdominal Exam GI & Abdominal Exam: Soft, Normal Bowel Sounds. absent: Tenderness - Extremities Exam Extremities Exam: Normal Inspection. absent: Calf Tenderness, Pedal Edema - Neurological Exam Neurological Exam: Alert, Awake, Oriented x3 - Psychiatric Exam Psychiatric exam: Normal Affect, Normal Mood - Skin Skin Exam: Warm Assessment and Plan - Assessment and Plan (Free Text) Plan: 50 y/o male with PMH of ESRD on HD (T,TH,S) cirrhosis, hep C, alcohol abuse, and polysubstance abuse with cocaine and heroin use presented with hypoxemic respiratory failure and septic shock secondary to klebsiella pneumonia and SBP. Pt resting comfortably on nasal cannula today, with no respiratory distress. Dobutamine stopped, no longer on any pressors. Platelets increased today after previous day, pt remains on agatroban. Heparin antibodies are still pending at this time. Plan as per ICU team. Neuro - AAO x3 at this time. - Continue lactulose and rifaximin for possible hepatic encephalopathy cardio - Off pressors, dobutamine stopped - Midodrine changed to TID - BP stable - echo: EF of 50% with severe pulmonary HTN and bioprosthesis valve - cardiology following pulm - CTA demonstrated no PE - B/l pleural effusions - CXR stable today. - CXR (04/27/16) shows improving right sided infiltrate and stable left sided infiltrate. - CXR (04/26/16) shows improving b/l infiltrates - Right sided chest tube on suction without air leak. Output: 430 cc of serosanganous fluid - aspiration precaution, HOB >35 - surgery following GI - lactulose and rifaxmin for empiric treatment for hepatic encephalopathy - Ammonia level less than 9 - protonix ppx - GI following, IR following Renal - ESRD on HD T,T,S - Maintain euvolemia - Replenish electrolytes as needed endo - fingerstick q6h - cont to monitor glucose ID - Afebrile, no leukocytosis - septic shock 2/2 aspiration PNA, (+) Klebsiella pna - C Diff Ag positive, continue vancomycin, Flagyl stopped - Merrem finished after 8 day course - ID following, Dr. Millard Seen, reviewed, and discussed with attending. Gabby, PGY-1 <Elly Flores - Last Filed: 04/28/16 15:32> Objective - Vital Signs/Intake and Output Vital Signs (last 24 hours): Temp Pulse Resp BP Pulse Ox 97.8 F 79 75 H 95/59 L 91 L 04/28/16 06:00 04/28/16 10:02 04/28/16 10:02 04/28/16 10:02 04/28/16 10:02 Intake and Output: 04/28/16 04/28/16 06:59 18:59 Intake Total 831 Output Total 430 Balance 401 - Medications Medications: Current Medications Albuterol/Ipratropium (Duoneb 3 Mg/0.5 Mg (3 Ml) Ud) 3 ml IH [id number] PRN PRN Reason: Shortness of Breath Last Admin: 04/27/16 07:48 Dose: 3 ml Calcium Acetate (Phoslo) 667 mg PO WM SIMON Last Admin: 04/28/16 12:02 Dose: 667 mg Famotidine (Pepcid) 40 mg PO HS SIMON Last Admin: 04/27/16 21:53 Dose: 40 mg Hydrocortisone Sodium Succinate (Solu-Cortef) 50 mg IVP Q12 SIMON Argatroban 250 mg/ Dextrose 252.5 mls @ 2.43 mls/hr IV .Q24H SIMNO; 0.5 MCG/KG/ MIN PRN Reason: Protocol Last Admin: 04/28/16 14:44 Dose: 2.43 mls/hr Lactulose (Enulose) 20 gm PO DAILY [facility] Last Admin: 04/28/16 09:46 Dose: 20 gm Lorazepam (Ativan) 2 mg IVP Q2H PRN; Protocol PRN Reason: Agitation Last Admin: 04/28/16 08:37 Dose: 2 mg Midodrine (Proamatine) 10 mg PO TID [facility] Last Admin: 04/28/16 14:42 Dose: 10 mg Morphine Sulfate (Morphine) 2 mg IVP Q6H PRN PRN Reason: Pain, moderate (4-7) Last Admin: 04/28/16 08:38 Dose: 2 mg Vancomycin HCl (Vancocin 25 Mg/Ml (Oral Use)) 125 mg PO QID SIMON PRN Reason: Protocol Last Admin: 04/28/16 14:42 Dose: 125 mg - Labs Labs: 04/28/16 06:30 04/28/16 06:30 PT 40.8 Seconds (9.9-11.8) H* 04/28/16 08:20 INR 3.78 (0.93-1.08) H* 04/28/16 08:20 APTT 60.1 Seconds (23.7-30.8) H 04/28/16 08:20 Attending/Attestation - Attestation I have personally seen and examined this patient.: Yes I have fully participated in the care of the patient.: Yes I have reviewed all pertinent clinical information, including history, physical exam and plan: Yes Notes (Text): 04/28/16 15:30 50 year old male with past medical history of CAD s/p CABG, alcohol abuse, substance abuse, chronic liver disease and ESRD who presented with altered mental status, sepsis and hypoxic respiratory failure s/p intubation. He is now extubated, on nasal cannula oxygen. He was found to have aspiration pneumonia (sputum culture growing Klebsiella). He is now off meropenem. He also had bilateral pleural effusion for which he is s/p chest tube. Continue with chest tube care as per surgery. He is on agatroban for DVT of left IJV. Heparin drip was discontinued due to thrombocytopenia. Will follow up HIT panel. Follow up with hematology and IR recommendations. Thrombocytopenia is slowly improving. Continue with dialysis for ESRD as per nephrology. He is off pressors. His midodrine was increased yesterday. He is on po flagyl for C Diff diarrhea. Elly Flores MD Hospitalist.
[2016-04-28 16:09] LABS: RESULT Negative (Negative)
[2016-04-28 16:09] LABS: HEPARIN-IND PLATELET AB Negative (Negative)
[2016-04-28 17:07] LABS: UFH SRA RESULT Negative (Negative)
--- NOTE | 2016-04-28 21:51 | PN ---
DATE: 04/28/2016 This is the patient's hospital visit in the intensive care unit. For Dr. Latham. SUBJECTIVE: The patient is a 50-year-old male seen lying awake in bed in the intensive care unit, [facility] with 1-on-1 observation, hospitalized for multiple medical problems including septic shock, chron ic kidney disease on dialysis which was done today, respiratory failure, right-sided pneumothorax wit h chest tube with thrombocytopenic indices. At present, the patient is now being transitioned from ar gatroban to Coumadin as per Dr. Latham's recommendations, with the patient in no acute distress. An algesics being given for his pain. OBJECTIVE: PHYSICAL EXAMINATION: VITAL SIGNS: Temperature 97.8, pulse 79, respirations 28, blood pressure 116/62, pulse ox 91%. HENT: Unremarkable. NECK: Supple. HEART: Regular rate. LUNGS: Chest tube on the right; left rare rhonchi. ABDOMEN: Soft with positive ascitic fluid wave. EXTREMITIES: Faint +1 edema. NEUROLOGIC: Awake, alert. SKIN: Otherwise, warm, dry, and clear, but ashen. The patient's labs were done. White blood cell count of 7.8, hemoglobin 10.3, hematocrit 31.3, plate let count of 68,000 with a manual count of 80,000, improving from a platelet count of 47,000 three da ys prior. His chem metabolic panel shows a BUN of 66, creatinine of 4.9 for which he will receive di alysis today as per Dr. Gonzalez. His INR today was 3.78 on argatroban, PT of 40.8, PTT of 60.1. The patient had a chest x-ray done today which was read as stable ovoid opacity at the left base, rul e out neoplasm. Followup advised. Right chest tube without evidence of pneumothorax. The patient di d have a CT scan of the chest done approximately 8 days prior which showed limited exam. No large ce ntral pulmonary embolism, bilateral pleural effusion, right greater than left; bilateral lower lobe a telectasis likely secondary to pleural effusion. Endotracheal tube terminates close to tracheal tiffanie na; should be repositioned. Left subclavian vascular stent, ascites. The patient had a previous CT scan of the chest done on 09/28. At that time it was read as bibasal c onsolidation, adjacent pleural effusion cysts with atelectasis, probably loculated; moderate ascites, no evidence of pulmonary embolism. ASSESSMENT: Septic shock, chronic kidney disease on dialysis done today, thrombocytopenia, subacute thrombus left internal jugular on argatroban, transitioned now to Coumadin. Aspiration pneumonia, Cl ostridium difficile enterocolitis, right-sided chest tube, pneumothorax, cirrhosis of the liver, asc ites, IV drug abuse, history of hepatic encephalopathy improved, hepatitis C positivity, history of h ypoxic respiratory failure. PLAN: After conversation with Dr. Latham, will recommend transitioning the patient from argatroban to Coumadin, and will monitor him clinically and with labs. Prognosis for this patient, unfortunately, is guarded. Jose Alejandro Miles MD cc: [phone] TT: 04/28/2016 21:50:18 Confirmation # [id number] Dictation # [id number] yung
[2016-04-29] MEDS: Morphine 2 mg/ml ISec IVP PRN ×4 (02:32→23:28)
[2016-04-29 07:05] LABS: ADD MANUAL DIFF? NO
[2016-04-29 07:11] LABS: GRAN # 7.62 (1.4-6.5); GRAN % 88.7 % (50.0-68.0); HEMATOCRIT 30.7 % (42.0-52.0); LYMPH # 0.3 (1.2-3.4); MEAN CELL VOLUME 90.8 fL (80.0-105.0); MEAN CORPUSCULAR HEMOGLOBIN 29.6 pg (25.0-35.0); MEAN CORPUSCULAR HGB CONC 32.6 g/dl (31.0-37.0); MEAN PLATELET VOLUME 11.3 fl (7.0-11.0); MONO # 0.7 (0.1-0.6); MONO % 8.3 % (1.0-6.0); PLATELET COUNT 95 10^3/uL (120.0-450.0); RED CELL DISTRIBUTION WIDTH 15.6 % (11.5-14.5); WHITE BLOOD COUNT 8.6 10^3/ul (4.5-11.0)
[2016-04-29 07:21] LABS: INR 3.02 (0.93-1.08)
[2016-04-29 07:23] LABS: BILIRUBIN,TOTAL 0.8 mg/dL (0.2-1.3); CALCIUM 8.1 mg/dL (8.4-10.5); MAGNESIUM 1.9 mg/dL (1.7-2.2); PHOSPHOROUS 3.5 mg/dL (2.5-4.5); POTASSIUM 3.7 mmol/L (3.6-5.0); TOTAL PROTEIN 3.6 g/dL (5.8-8.3)
[2016-04-29] MEDS: Vancomycin 25 MG/ML PO SCH ×4 (09:13→21:50)
--- NOTE | 2016-04-29 10:03 | CP.PCM.PN ---
Subjective - Date & Time of Evaluation Date of Evaluation: 04/29/16 Time of Evaluation: 09:10 - Subjective Subjective: Patient is comfortable on a chair, not in distress, no fevers, stools are loose but soft and not watery. Objective - Vital Signs/Intake and Output Vital Signs (last 24 hours): Temp Pulse Resp BP Pulse Ox 97.4 F L 74 31 H 94/59 L 95 04/29/16 08:31 04/29/16 07:00 04/29/16 07:00 04/29/16 07:00 04/29/16 07:00 Intake and Output: 04/29/16 04/29/16 06:59 18:59 Intake Total 270 Output Total 350 Balance -80 - Medications Medications: Current Medications Albuterol/Ipratropium (Duoneb 3 Mg/0.5 Mg (3 Ml) Ud) 3 ml IH [id number] PRN PRN Reason: Shortness of Breath Last Admin: 04/27/16 07:48 Dose: 3 ml Calcium Acetate (Phoslo) 667 mg PO WM [facility] Last Admin: 04/29/16 07:55 Dose: 667 mg Famotidine (Pepcid) 40 mg PO HS [facility] Last Admin: 04/28/16 21:54 Dose: 40 mg Hydrocortisone Sodium Succinate (Solu-Cortef) 50 mg IVP Q12 SIMON Last Admin: 04/28/16 21:54 Dose: 50 mg Argatroban 250 mg/ Dextrose 252.5 mls @ 2.43 mls/hr IV .Q24H SIMON; 0.5 MCG/KG/ MIN PRN Reason: Protocol Last Admin: 04/28/16 14:44 Dose: 2.43 mls/hr Lactulose (Enulose) 20 gm PO DAILY [facility] Last Admin: 04/28/16 09:46 Dose: 20 gm Lorazepam (Ativan) 2 mg IVP Q2H PRN; Protocol PRN Reason: Agitation Last Admin: 04/29/16 06:16 Dose: 2 mg Midodrine (Proamatine) 10 mg PO TID SIMON Last Admin: 04/28/16 17:07 Dose: 10 mg Morphine Sulfate (Morphine) 2 mg IVP Q6H PRN PRN Reason: Pain, moderate (4-7) Last Admin: 04/29/16 02:32 Dose: 2 mg Vancomycin HCl (Vancocin 25 Mg/Ml (Oral Use)) 125 mg PO QID SIMON PRN Reason: Protocol Last Admin: 04/28/16 21:54 Dose: 125 mg - Labs Labs: 04/29/16 06:45 04/29/16 06:45 PT 32.6 Seconds (9.9-11.8) H* 04/29/16 06:45 INR 3.02 (0.93-1.08) H 04/29/16 06:45 APTT 60.1 Seconds (23.7-30.8) H 04/28/16 08:20 - Constitutional Appears: Non-toxic, No Acute Distress - Head Exam Head Exam: NORMAL INSPECTION - ENT Exam ENT Exam: Mucous Membranes Moist - Neck Exam Neck Exam: absent: Lymphadenopathy, Meningismus - Respiratory Exam Respiratory Exam: Decreased Breath Sounds Additional comments: right sided chest tube in place with serosanguinous fluid - Cardiovascular Exam Cardiovascular Exam: +S1, +S2 - GI/Abdominal Exam GI & Abdominal Exam: Soft. absent: Tenderness - Extremities Exam Additional comments: right femoral central venous catheter in place; left femoral arterial line in place Assessment and Plan - Assessment and Plan (Free Text) Plan: Assessment Septic shock with multiorgan dysfunction syndrome (MODS) with acute toxic- metabolic encephalopathy, chronic renal failure, hypoxic respiratory failure (S/ P ventilator-dependence) with probable right sided severe healthcare-associated pneumonia with Klebsiella (ESBL-producing, multidrug-resistant) with pleural effusion S/P chest tube placement POD #7 in a patient who possibly overdosed on heroin; patient has clinically improved and S/P treatment for pneumonia C. diff associated diarrhea, slowly improving CAD S/P CABG ESRD on HD history of lymphadenopathy Plan S/P Meropenem; continue PO Vancomycin (day 7 - target 10 days total) Recommend removal or change site of femoral lines when feasible to decrease the risk of infections will continue to monitor closely
--- NOTE | 2016-04-29 10:42 | RAD ---
HISTORY: comparison COMPARISON: 04/28/2016 FINDINGS: The right-sided dual lumen central venous catheter terminates at the cavoatrial junction. There is stable position of the right chest tube. Left subclavian and axillary endovascular stent is again visualized. LUNGS: The right lung is clear. There is persistent opacity in the left mid lung and the linear scarring in the left lower lobe. PLEURA: No significant pleural effusion identified, no pneumothorax apparent. CARDIOVASCULAR: The heart is normal in size. Status post prosthetic valve and median sternotomy. OSSEOUS STRUCTURES: No significant abnormalities. VISUALIZED UPPER ABDOMEN: Normal. OTHER FINDINGS: None. IMPRESSION: Stable position of line and tube. Opacity in the left mid lung could represent consolidation or loculated pleural effusion. Follow-up is advised
--- NOTE | 2016-04-29 12:00 | CP.PCM.PN ---
Subjective - Date & Time of Evaluation Date of Evaluation: 04/29/16 Time of Evaluation: 07:10 - Subjective Subjective: General Surgery Dr. Lowery Pt S&E @bedside. NAEO. tolerating diet. no N/V, F/C. RCT 350cc [id number] Objective - Vital Signs/Intake and Output Vital Signs (last 24 hours): Temp Pulse Resp BP Pulse Ox 97.4 F L 86 23 114/57 L 96 04/29/16 08:31 04/29/16 11:05 04/29/16 11:05 04/29/16 10:00 04/29/16 10:00 Intake and Output: 04/29/16 04/29/16 06:59 18:59 Intake Total 270 Output Total 350 Balance -80 - Medications Medications: Current Medications Albuterol/Ipratropium (Duoneb 3 Mg/0.5 Mg (3 Ml) Ud) 3 ml IH [id number] PRN PRN Reason: Shortness of Breath Last Admin: 04/27/16 07:48 Dose: 3 ml Calcium Acetate (Phoslo) 667 mg PO WM SIMON Last Admin: 04/29/16 11:09 Dose: 667 mg Famotidine (Pepcid) 40 mg PO HS SIMON Last Admin: 04/28/16 21:54 Dose: 40 mg Hydrocortisone Sodium Succinate (Solu-Cortef) 50 mg IVP Q12 SIMON Last Admin: 04/29/16 09:13 Dose: 50 mg Argatroban 250 mg/ Dextrose 252.5 mls @ 2.43 mls/hr IV .Q24H SIMON; 0.5 MCG/KG/ MIN PRN Reason: Protocol Last Admin: 04/28/16 14:44 Dose: 2.43 mls/hr Lactulose (Enulose) 20 gm PO DAILY SIMON Last Admin: 04/29/16 09:12 Dose: 20 gm Lorazepam (Ativan) 2 mg IVP Q2H PRN; Protocol PRN Reason: Agitation Last Admin: 04/29/16 10:22 Dose: 2 mg Midodrine (Proamatine) 10 mg PO TID SIMON Last Admin: 04/29/16 09:12 Dose: 10 mg Morphine Sulfate (Morphine) 2 mg IVP Q6H PRN PRN Reason: Pain, moderate (4-7) Last Admin: 04/29/16 09:25 Dose: 2 mg Vancomycin HCl (Vancocin 25 Mg/Ml (Oral Use)) 125 mg PO QID SIMON PRN Reason: Protocol Last Admin: 04/29/16 09:13 Dose: 125 mg - Labs Labs: 04/29/16 06:45 04/29/16 06:45 PT 32.6 Seconds (9.9-11.8) H* 04/29/16 06:45 INR 3.02 (0.93-1.08) H 04/29/16 06:45 APTT 60.1 Seconds (23.7-30.8) H 04/28/16 08:20 Laboratory Tests 04/29/16 06:45 Calcium 8.1 L Phosphorus 3.5 Magnesium 1.9 Total Bilirubin 0.8 AST 15 ALT 25 Alkaline Phosphatase 108 Total Protein 3.6 L Albumin 1.8 L - Constitutional Appears: Non-toxic, No Acute Distress - Head Exam Head Exam: NORMAL INSPECTION - Eye Exam Eye Exam: Normal appearance - ENT Exam ENT Exam: Mucous Membranes Moist - Respiratory Exam Respiratory Exam: NORMAL BREATHING PATTERN. absent: Accessory Muscle Use, Respiratory Distress Additional comments: RCT in place dressing changed c/d/i - Cardiovascular Exam Cardiovascular Exam: REGULAR RHYTHM - GI/Abdominal Exam GI & Abdominal Exam: Soft. absent: Distended - Neurological Exam Neurological Exam: Alert, Awake - Psychiatric Exam Psychiatric exam: Normal Affect, Normal Mood - Skin Skin Exam: Dry, Intact, Normal Color, Warm Assessment and Plan - Assessment and Plan (Free Text) Assessment: 50 y/o M POD#8 s/p R side chest tube placement - f/u CXR - monitor CT drainage - dressing changes daily - CT ok to be pulled pending ICU approval - Cont ICU management Pt discussed w/ Dr. Sebastián Robert DO PGY1
--- NOTE | 2016-04-29 12:53 | CP.CCUPN ---
CCU Subjective - Physician Review Events Since Last Encounter (Free Text): 04/29/16 12:48 No acute events overnight. Critical Care Time Spent (in minutes): 35 CCU Objective - Vital Signs / Intake & Output Vital Signs (Last 4 hours): Vital Signs Temp Pulse Resp BP Pulse Ox 04/29/16 12:39 78 22 04/29/16 12:35 97.2 F L 04/29/16 11:05 86 23 04/29/16 11:00 79 22 92/58 L 93 L 04/29/16 10:01 64 19 97 04/29/16 10:00 57 L 20 114/57 L 96 04/29/16 09:56 60 16 98 04/29/16 09:06 74 16 96 04/29/16 09:00 81 17 113/40 L 96 Intake and Output (Last 8hrs): Intake & Output 04/28/16 04/29/16 04/29/16 22:59 06:59 14:59 Intake Total 270 Output Total 350 Balance -80 Weight 177 lb Intake: IV 30 Argatroban 30 Oral 240 Output: Chest Tube Drainage 350 Right 350 Urine 0 Urine, Voided 0 Other: Voiding Method Bedpan # Bowel Movements 0 - Physical Exam Head: Positive for: Atraumatic, Normocephalic Pupils: Positive for: PERRL Extroacular Muscles: Positive for: EOMI Conjunctiva: Positive for: Normal. Negative for: Injected, Icteric Mouth: Positive for: Moist Mucous Membranes Pharnyx: Positive for: Normal Neck: Positive for: Normal Range of Motion Respiratory/Chest: Positive for: Decreased Breath Sounds (l base , R CT in place ), Other (CT on R chest: 500Lcc/24. SS .). Negative for: Accessory Muscle Use Cardiovascular: Positive for: Regular Rate and Rhythm, Normal S1, S2. Negative for: Murmurs Abdomen: Positive for: Distention, Normal Bowel Sounds. Negative for: Tenderness, Peritoneal Signs, Rebound Upper Extremity: Positive for: Normal Inspection, Edema. Negative for: Cyanosis Lower Extremity: Positive for: Edema, Tenderness. Negative for: CALF TENDERNESS Neurological: Positive for: GCS=15, CN II-XII Intact, Speech Normal Skin: Positive for: Warm, Dry, Normal Color. Negative for: Rashes Psychiatric: Positive for: Alert, Oriented x 3, Normal Concentration - Medications Active Medications: Active Medications Generic Name Dose Route Start Last Admin Trade Name Freq PRN Reason Stop Dose Admin Albuterol/Ipratropium 3 ml 04/20/16 13:13 04/27/16 07:48 Duoneb 3 Mg/0.5 Mg (3 Ml) Ud IH 3 ml [id number] PRN Administration Shortness of Breath Calcium Acetate 667 mg 04/21/16 08:00 04/29/16 11:09 Phoslo PO 667 mg WM SIMON Administration Famotidine 40 mg 04/25/16 22:00 04/28/16 21:54 Pepcid PO 40 mg HS SIMON Administration Hydrocortisone Sodium Succinate 50 mg 04/28/16 22:00 04/29/16 09:13 Solu-Cortef IVP 50 mg Q12 SIMON Administration Argatroban 250 mg/ Dextrose 252.5 mls @ 2.43 mls/hr 04/26/16 13:45 04/28/16 14: 44 IV 2.43 mls/hr .Q24H SIMON Administration Protocol 0.5 MCG/KG/MIN Lactulose 20 gm 04/24/16 10:00 04/29/16 09:12 Enulose PO 20 gm DAILY SIMON Administration Lorazepam 2 mg 04/21/16 08:41 04/29/16 10:22 Ativan IVP 2 mg Q2H PRN Administration Agitation Protocol Midodrine 10 mg 04/27/16 14:00 04/29/16 09:12 Proamatine PO 10 mg TID SIMON Administration Morphine Sulfate 2 mg 04/28/16 08:26 04/29/16 09:25 Morphine IVP 2 mg Q6H PRN Administration Pain, moderate (4-7) Vancomycin HCl 125 mg 04/23/16 18:00 04/29/16 09:13 Vancocin 25 Mg/Ml (Oral Use) PO 125 mg QID SIMON Administration Protocol - Patient Studies Lab Studies: Lab Studies 04/29/16 04/28/16 04/28/16 Range/Units 06:45 22:02 16:20 WBC 8.6 (4.5-11.0) 10^3/ul RBC 3.38 L (3.5-6.1) 10^6/uL Hgb 10.0 L (14.0-18.0) gm/dL Hct 30.7 L (42.0-52.0) % MCV 90.8 (80.0-105.0) fL MCH 29.6 (25.0-35.0) pg MCHC 32.6 (31.0-37.0) g/dl RDW 15.6 H (11.5-14.5) % Plt Count 95 L (120.0-450.0) 10^3/uL MPV 11.3 H (7.0-11.0) fl Gran % 88.7 H (50.0-68.0) % Lymph % (Auto) 3.0 L (22.0-35.0) % [place] % (Auto) 8.3 H (1.0-6.0) % Eos % (Auto) 0.0 L (1.5-5.0) % Baso % (Auto) 0.0 (0.0-3.0) % Gran # 7.62 H (1.4-6.5) Lymph # 0.3 L (1.2-3.4) [place] # 0.7 H (0.1-0.6) Eos # 0.0 (0.0-0.7) Baso # 0.00 (0.0-2.0) K/mm3 PT 32.6 H* (9.9-11.8) Seconds INR 3.02 H (0.93-1.08) Hep-[place]ilee Thrombocytopen (Negative) Sodium 134 (132-148) mmol/L Potassium 3.7 (3.6-5.0) mmol/L Chloride 103 (95-110) mmol/L Carbon Dioxide 24 (21-33) mmol/L Anion Gap 11 (10-20) BUN 56 H (7-21) mg/dL Creatinine 4.3 H (0.5-1.4) mg/dL Est GFR ( Amer) 18 Est GFR (Non-Af Amer) 15 POC Glucose (mg/dL) 103 86 (65-110) mg/dL Random Glucose 108 (70-110) mg/dL Calcium 8.1 L (8.4-10.5) mg/dL Phosphorus 3.5 (2.5-4.5) mg/dL Magnesium 1.9 (1.7-2.2) mg/dL Total Bilirubin 0.8 (0.2-1.3) mg/dL AST 15 (15-59) U/L ALT 25 (7-56) U/L Alkaline Phosphatase 108 (38-133) U/L Total Protein 3.6 L (5.8-8.3) g/dL Albumin 1.8 L (3.0-4.8) g/dL Globulin 1.8 gm/dL Albumin/Globulin Ratio 1.0 L (1.1-1.8) Heparin-induced Plt Ab (Negative) ANGIE UFH Low Dose 0.1 (()) % Release ANGIE UFH Low Dose 0.5 (()) % Release ANGIE UFH High Dose 100 (()) % Release 04/28/16 04/28/16 04/27/16 Range/Units 11:26 07:21 21:32 WBC (4.5-11.0) 10^3/ul RBC (3.5-6.1) 10^6/uL Hgb (14.0-18.0) gm/dL Hct (42.0-52.0) % MCV (80.0-105.0) fL MCH (25.0-35.0) pg MCHC (31.0-37.0) g/dl RDW (11.5-14.5) % Plt Count (120.0-450.0) 10^3/uL MPV (7.0-11.0) fl Gran % (50.0-68.0) % Lymph % (Auto) (22.0-35.0) % [place] % (Auto) (1.0-6.0) % Eos % (Auto) (1.5-5.0) % Baso % (Auto) (0.0-3.0) % Gran # (1.4-6.5) Lymph # (1.2-3.4) [place] # (0.1-0.6) Eos # (0.0-0.7) Baso # (0.0-2.0) K/mm3 PT (9.9-11.8) Seconds INR (0.93-1.08) Hep-[place] Thrombocytopen (Negative) Sodium (132-148) mmol/L Potassium (3.6-5.0) mmol/L Chloride (95-110) mmol/L Carbon Dioxide (21-33) mmol/L Anion Gap (10-20) BUN (7-21) mg/dL Creatinine (0.5-1.4) mg/dL Est GFR ( Amer) Est GFR (Non-Af Amer) POC Glucose (mg/dL) 116 H 111 H 127 H (65-110) mg/dL Random Glucose (70-110) mg/dL Calcium (8.4-10.5) mg/dL Phosphorus (2.5-4.5) mg/dL Magnesium (1.7-2.2) mg/dL Total Bilirubin (0.2-1.3) mg/dL AST (15-59) U/L ALT (7-56) U/L Alkaline Phosphatase (38-133) U/L Total Protein (5.8-8.3) g/dL Albumin (3.0-4.8) g/dL Globulin gm/dL Albumin/Globulin Ratio (1.1-1.8) Heparin-induced Plt Ab (Negative) ANGIE UFH Low Dose 0.1 (()) % Release ANGIE UFH Low Dose 0.5 (()) % Release ANGIE UFH High Dose 100 (()) % Release 04/26/16 04/26/16 Range/Units 20:35 07:57 WBC (4.5-11.0) 10^3/ul RBC (3.5-6.1) 10^6/uL Hgb (14.0-18.0) gm/dL Hct (42.0-52.0) % MCV (80.0-105.0) fL MCH (25.0-35.0) pg MCHC (31.0-37.0) g/dl RDW (11.5-14.5) % Plt Count (120.0-450.0) 10^3/uL MPV (7.0-11.0) fl Gran % (50.0-68.0) % Lymph % (Auto) (22.0-35.0) % [place] % (Auto) (1.0-6.0) % Eos % (Auto) (1.5-5.0) % Baso % (Auto) (0.0-3.0) % Gran # (1.4-6.5) Lymph # (1.2-3.4) [place] # (0.1-0.6) Eos # (0.0-0.7) Baso # (0.0-2.0) K/mm3 PT (9.9-11.8) Seconds INR (0.93-1.08) Hep-[place] Thrombocytopen Negative (Negative) Sodium (132-148) mmol/L Potassium (3.6-5.0) mmol/L Chloride (95-110) mmol/L Carbon Dioxide (21-33) mmol/L Anion Gap (10-20) BUN (7-21) mg/dL Creatinine (0.5-1.4) mg/dL Est GFR ( Amer) Est GFR (Non-Af Amer) POC Glucose (mg/dL) (65-110) mg/dL Random Glucose (70-110) mg/dL Calcium (8.4-10.5) mg/dL Phosphorus (2.5-4.5) mg/dL Magnesium (1.7-2.2) mg/dL Total Bilirubin (0.2-1.3) mg/dL AST (15-59) U/L ALT (7-56) U/L Alkaline Phosphatase (38-133) U/L Total Protein (5.8-8.3) g/dL Albumin (3.0-4.8) g/dL Globulin gm/dL Albumin/Globulin Ratio (1.1-1.8) Heparin-induced Plt Ab Negative (Negative) ANGIE UFH Low Dose 0.1 8 (()) % Release ANGIE UFH Low Dose 0.5 5 (()) % Release ANGIE UFH High Dose 100 6 (()) % Release Laboratory Results - last 24 hr 04/26/16 04/26/16 04/27/16 07:57 20:35 21:32 WBC RBC Hgb Hct MCV MCH MCHC RDW Plt Count MPV Gran % Lymph % (Auto) [place] % (Auto) Eos % (Auto) Baso % (Auto) Gran # Lymph # [place] # Eos # Baso # PT INR Hep-[place]ilee Thrombocytopen Negative Sodium Potassium Chloride Carbon Dioxide Anion Gap BUN Creatinine Est GFR ( Amer) Est GFR (Non-Af Amer) POC Glucose (mg/dL) 127 H Random Glucose Calcium Phosphorus Magnesium Total Bilirubin AST ALT Alkaline Phosphatase Total Protein Albumin Globulin Albumin/Globulin Ratio Heparin-induced Plt Ab Negative ANGIE UFH Low Dose 0.1 8 ANGIE UFH Low Dose 0.5 5 ANGIE UFH High Dose 100 6 04/28/16 04/28/16 04/28/16 07:21 11:26 16:20 WBC RBC Hgb Hct MCV MCH MCHC RDW Plt Count MPV Gran % Lymph % (Auto) [place] % (Auto) Eos % (Auto) Baso % (Auto) Gran # Lymph # [place] # Eos # Baso # PT INR Hep-[place] Thrombocytopen Sodium Potassium Chloride Carbon Dioxide Anion Gap BUN Creatinine Est GFR ( Amer) Est GFR (Non-Af Amer) POC Glucose (mg/dL) 111 H 116 H 86 Random Glucose Calcium Phosphorus Magnesium Total Bilirubin AST ALT Alkaline Phosphatase Total Protein Albumin Globulin Albumin/Globulin Ratio Heparin-induced Plt Ab ANGIE UFH Low Dose 0.1 ANGIE UFH Low Dose 0.5 ANGIE UFH High Dose 100 04/28/16 04/29/16 22:02 06:45 WBC 8.6 RBC 3.38 L Hgb 10.0 L Hct 30.7 L MCV 90.8 MCH 29.6 MCHC 32.6 RDW 15.6 H Plt Count 95 L MPV 11.3 H Gran % 88.7 H Lymph % (Auto) 3.0 L [place] % (Auto) 8.3 H Eos % (Auto) 0.0 L Baso % (Auto) 0.0 Gran # 7.62 H Lymph # 0.3 L [place] # 0.7 H Eos # 0.0 Baso # 0.00 PT 32.6 H* INR 3.02 H Hep-[place] Thrombocytopen Sodium 134 Potassium 3.7 Chloride 103 Carbon Dioxide 24 Anion Gap 11 BUN 56 H Creatinine 4.3 H Est GFR ( Amer) 18 Est GFR (Non-Af Amer) 15 POC Glucose (mg/dL) 103 Random Glucose 108 Calcium 8.1 L Phosphorus 3.5 Magnesium 1.9 Total Bilirubin 0.8 AST 15 ALT 25 Alkaline Phosphatase 108 Total Protein 3.6 L Albumin 1.8 L Globulin 1.8 Albumin/Globulin Ratio 1.0 L Heparin-induced Plt Ab ANGIE UFH Low Dose 0.1 ANGIE UFH Low Dose 0.5 ANGIE UFH High Dose 100 Fingerstick Blood Sugar Results: 127 Critical Care Progress Note - Ventilator Checklist Daily Sedation Vacation: Yes Daily Spontaneous Breathing Trial: Yes PUD Prophalyxis: Yes DVT Prophylaxis: Yes - Nutrition Nutrition: Nutrition Category Date Time Status Renal Diet [DIET] Diets 04/23/16 Dinner Ordered Assessment/Plan - Assessment and Plan (Free Text) Assessment: 50 y/o M w/ decompensated Liver Failure s/p Septic shock Complete abx treatment for SBP/ C.Diff with I.D following dosing on H.D My need repeat paracentesis due to increased abd size. Encephalopathy improving, on lactulose, aaox 3 . On minimal oxygen and ambulating with assistance in the room. Need PT/ OT Thrombocytopenia secondary to likely sepsis and Liver failure. AFIA negative, stop agatroban, would consider another choice , d/w hematology possibly coumadin? for Upper DVT . Monitor for bleeding. HX of recent drug use, heroin, cocaine . Rehab? need G.I outpatient follow up , in the setting of having HEP c with high viral load and possible cirrhotic picture. cc time 35 min case d/w hospitalist team - Date & Time Date: 04/29/16
--- NOTE | 2016-04-29 13:02 | US ---
PROCEDURE: Limited abdominal ultrasound HISTORY: evaluation of ascites COMPARISON: None TECHNIQUE: Grayscale imaging was performed. FINDINGS: There is moderate amount of fluid in all 4 quadrants, the largest in right upper quadrant. IMPRESSION: Large abdominal ascites, the largest pocket in the right upper quadrant.
[2016-04-29] MEDS: Argatroban 250 MG in Dextrose 5% In Water 250 ML IV SCH (13:23)
--- NOTE | 2016-04-29 14:01 | CP.PCM.PN ---
<Leonel Pierre - Last Filed: 04/29/16 14:21> Subjective - Date & Time of Evaluation Date of Evaluation: 04/29/16 Time of Evaluation: 13:54 - Subjective Subjective: Pt seen and examined at bedside. Pt doing well sitting in a chair. Pt states he has no complaints at this time. No acute events overnight as per nursing. Chest tube in place. Pt admits to having bowel movements overnight. Denies CP, SOB, Nausea, vomiting, fevers. Objective - Vital Signs/Intake and Output Vital Signs (last 24 hours): Temp Pulse Resp BP Pulse Ox 97.2 F L 78 22 92/58 L 93 L 04/29/16 12:35 04/29/16 12:39 04/29/16 12:39 04/29/16 11:00 04/29/16 11:00 Intake and Output: 04/29/16 04/29/16 06:59 18:59 Intake Total 270 Output Total 350 Balance -80 - Medications Medications: Current Medications Albuterol/Ipratropium (Duoneb 3 Mg/0.5 Mg (3 Ml) Ud) 3 ml IH [id number] PRN PRN Reason: Shortness of Breath Last Admin: 04/27/16 07:48 Dose: 3 ml Calcium Acetate (Phoslo) 667 mg PO WM SIMON Last Admin: 04/29/16 11:09 Dose: 667 mg Famotidine (Pepcid) 40 mg PO HS SIMON Last Admin: 04/28/16 21:54 Dose: 40 mg Hydrocortisone Sodium Succinate (Solu-Cortef) 50 mg IVP Q12 SIMON Last Admin: 04/29/16 09:13 Dose: 50 mg Argatroban 250 mg/ Dextrose 252.5 mls @ 2.43 mls/hr IV .Q24H SIMON; 0.5 MCG/KG/ MIN PRN Reason: Protocol Last Admin: 04/29/16 13:23 Dose: 2.43 mls/hr Lactulose (Enulose) 20 gm PO DAILY SIMON Last Admin: 04/29/16 09:12 Dose: 20 gm Lorazepam (Ativan) 2 mg IVP Q2H PRN; Protocol PRN Reason: Agitation Last Admin: 04/29/16 10:22 Dose: 2 mg Midodrine (Proamatine) 10 mg PO TID SIMON Last Admin: 04/29/16 13:23 Dose: 10 mg Morphine Sulfate (Morphine) 2 mg IVP Q6H PRN PRN Reason: Pain, moderate (4-7) Last Admin: 04/29/16 09:25 Dose: 2 mg Vancomycin HCl (Vancocin 25 Mg/Ml (Oral Use)) 125 mg PO QID SIMON PRN Reason: Protocol Last Admin: 04/29/16 13:24 Dose: 125 mg - Labs Labs: 04/29/16 06:45 04/29/16 06:45 PT 32.6 Seconds (9.9-11.8) H* 04/29/16 06:45 INR 3.02 (0.93-1.08) H 04/29/16 06:45 APTT 60.1 Seconds (23.7-30.8) H 04/28/16 08:20 - Constitutional Appears: Well, No Acute Distress - Head Exam Head Exam: ATRAUMATIC, NORMAL INSPECTION, NORMOCEPHALIC - ENT Exam ENT Exam: Mucous Membranes Moist, Normal Exam - Respiratory Exam Respiratory Exam: Clear to Ausculation Bilateral, NORMAL BREATHING PATTERN. absent: Rhonchi, Wheezes - Cardiovascular Exam Cardiovascular Exam: REGULAR RHYTHM, +S1, +S2 - GI/Abdominal Exam GI & Abdominal Exam: Distended, Soft, Normal Bowel Sounds. absent: Guarding, Rigid, Tenderness - Extremities Exam Extremities Exam: Normal Inspection. absent: Calf Tenderness, Pedal Edema - Neurological Exam Neurological Exam: Alert, Awake, Oriented x3 - Psychiatric Exam Psychiatric exam: Normal Affect, Normal Mood - Skin Skin Exam: Intact, Normal Color, Warm Assessment and Plan - Assessment and Plan (Free Text) Plan: 50 y/o male with PMH of ESRD on HD (T,TH,S) cirrhosis, hep C, alcohol abuse, and polysubstance abuse with cocaine and heroin use presented with hypoxemic respiratory failure and septic shock secondary to klebsiella pneumonia and SBP. Pt resting comfortably on nasal cannula, with no respiratory distress. No pressors required at this time. Awaiting hem/onc recommendations on bridging patient on from agatroban to coumadin. HIT panel and antibodies negative. Surgery planning for removal of chest tube and central line later today. Patient will be transferred to telemetry today. Neuro - AAO x3 at this time. - Continue lactulose and rifaximin for possible hepatic encephalopathy Cardio - Awaiting recommendations for bridging to warfarin - Midodrine changed to TID - BP stable - echo: EF of 50% with severe pulmonary HTN and bioprosthesis valve - cardiology following pulm - CTA demonstrated no PE - B/l pleural effusions, resolving. Abx stopped - CXR shows stable left mid lung consolidation of locculated effusion - Right sided chest tube on suction without air leak. Output: 350 cc of serosanganous fluid - Chest tube will likely be removed today by surgery - Nicotine patch ordered - aspiration precaution, HOB >35 - surgery following GI - lactulose and rifaxmin for empiric treatment for hepatic encephalopathy - Continue treatment for SBP - Abdominal US shows large amount of ascites. Will consider lasix to treat as patient is on anticoagulation and would not be a good candidate for paracentesis - protonix ppx - GI following, IR following Renal - ESRD on HD T,T,S - Maintain euvolemia - Replenish electrolytes as needed endo - fingerstick q6h - cont to monitor glucose ID - Afebrile, no leukocytosis - Will taper steroids - septic shock 2/2 aspiration PNA, (+) Klebsiella pna - C Diff Ag positive, continue vancomycin, - Abx stopped after 8 day course - ID following, Dr. Millard Seen, reviewed, and discussed with attending. Gabby, PGY-1 <Elly Flores - Last Filed: 04/29/16 15:35> Objective - Vital Signs/Intake and Output Vital Signs (last 24 hours): Temp Pulse Resp BP Pulse Ox 97.2 F L 70 19 98/57 L 95 04/29/16 12:35 04/29/16 15:13 04/29/16 15:13 04/29/16 14:00 04/29/16 14:00 Intake and Output: 04/29/16 04/29/16 06:59 18:59 Intake Total 270 Output Total 350 Balance -80 - Medications Medications: Current Medications Albuterol/Ipratropium (Duoneb 3 Mg/0.5 Mg (3 Ml) Ud) 3 ml IH [id number] PRN PRN Reason: Shortness of Breath Last Admin: 04/27/16 07:48 Dose: 3 ml Calcium Acetate (Phoslo) 667 mg PO WM SIMON Last Admin: 04/29/16 11:09 Dose: 667 mg Famotidine (Pepcid) 40 mg PO HS [facility] Last Admin: 04/28/16 21:54 Dose: 40 mg Furosemide (Lasix) 20 mg PO DAILY [facility] Hydrocortisone Sodium Succinate (Solu-Cortef) 25 mg IVP Q12 [facility] Argatroban 250 mg/ Dextrose 252.5 mls @ 2.43 mls/hr IV .Q24H SIMON; 0.5 MCG/KG/ MIN PRN Reason: Protocol Last Admin: 04/29/16 13:23 Dose: 2.43 mls/hr Lactulose (Enulose) 20 gm PO DAILY [facility] Last Admin: 04/29/16 09:12 Dose: 20 gm Lorazepam (Ativan) 2 mg IVP Q2H PRN; Protocol PRN Reason: Agitation Last Admin: 04/29/16 10:22 Dose: 2 mg Midodrine (Proamatine) 10 mg PO TID [facility] Last Admin: 04/29/16 13:23 Dose: 10 mg Morphine Sulfate (Morphine) 2 mg IVP Q6H PRN PRN Reason: Pain, moderate (4-7) Last Admin: 04/29/16 09:25 Dose: 2 mg Nicotine (Nicoderm Cq) 1 patch TD DAILY [facility] Last Admin: 04/29/16 14:34 Dose: 1 patch Vancomycin HCl (Vancocin 25 Mg/Ml (Oral Use)) 125 mg PO QID SIMON PRN Reason: Protocol Last Admin: 04/29/16 13:24 Dose: 125 mg - Labs Labs: 04/29/16 06:45 04/29/16 06:45 PT 32.6 Seconds (9.9-11.8) H* 04/29/16 06:45 INR 3.02 (0.93-1.08) H 04/29/16 06:45 APTT 60.1 Seconds (23.7-30.8) H 04/28/16 08:20 Attending/Attestation - Attestation I have personally seen and examined this patient.: Yes I have fully participated in the care of the patient.: Yes I have reviewed all pertinent clinical information, including history, physical exam and plan: Yes Notes (Text): 04/29/16 15:30 50 year old male with past medical history of CAD s/p CABG, alcohol abuse, substance abuse, chronic liver disease and ESRD who presented with altered mental status, sepsis and hypoxic respiratory failure s/p intubation. He was later extubated, on nasal cannula oxygen. He was found to have aspiration pneumonia (sputum culture growing Klebsiella) and has completed iv meropenem. He also had bilateral pleural effusion for which he is s/p chest tube. Continue with chest tube care as per surgery. Plan is to possibly remove chest tube soon as per surgery. He is on agatroban for DVT of left IJV. Heparin drip was discontinued due to thrombocytopenia. However HIT panel was negative. Thrombocytopenia is slowly improving. Plan is to possibly switch to coumadin as per hematology. Continue with dialysis for ESRD as per nephrology. He is off pressors. He is on midodrine. Will taper his steroids. He is on po flagyl for C Diff diarrhea. Abdominal ultasound today showed large ascites. Will add lasix for diuresis and hold off on paracentesis for now as patient is on anticoagulation as above. Elly Flores MD Hospitalist.
--- NOTE | 2016-04-29 14:10 | PN ---
DATE: 04/29/2016 SUBJECTIVE: The patient was seen in the intensive care unit. He continues to remain on argatroban i nfusion. He also has a right chest tube in place, which is draining serosanguineous fluid. He denie s any chest pain, shortness of breath, abdominal pain, nausea, vomiting and has no palpitations. He is in good spirits, 1:1 remains present at bedside. He is not on any inotropes nor is he on any pres sors. OBJECTIVE: VITAL SIGNS: Blood pressure is 92/58 with a minimum blood pressure of 69/46 and a maximum of approxi mately 115/70 in the last 24-hour period. Heart rate is 78, but has ranged from the 70s to 106 beats per minute in the last 24-hour period with monitoring showing sinus rhythm and sinus tachycardia. O ral temperature is 97.2 degrees and the patient has been afebrile for the last 48 hour regular. Resp iratory rate is 22 breaths per minute, but has ranged from 19-42 breaths per minute in the last 24-ho ur period. Oxygen saturation is 93%, but has ranged from 93% -100% on 2 liters oxygen via nasal radha pascale. I's and O's are not strictly documented. The remainder of the exam is as follows: HEENT: The patient was normocephalic and atraumatic without any sinus tenderness. He did appear to be chronically ill as well as somewhat cachectic Conjunctivae were pale nor were they icteric. NECK: There was jugular venous distention. RESPIRATORY: Lung paez on my exam were grossly clear to auscultation. The patient has a right-ajit ed chest tube in place as stated above. Diaphragmatic excursion and airflow into both lung paez wa s bilaterally symmetrical. CARDIAC: Had a regular rate and rhythm without any rubs or gallops. ABDOMEN: Soft, distended with ascites, but nontender. There was no rebound, guarding or rigidity. EXTREMITIES: Had 1+ sacral and lower extremity edema. SKIN: Notable for a right IJ PermCath in place. VASCULAR: Had no bruits. SKIN: Also chronic stasis changes and hyperpigmentation of the skin. NEUROLOGIC: The patient was nonfocal. LABORATORY STUDIES: White count is 8.6, H and H is 10/30.7 with a platelet count of 95,000. There i s 89% neutrophils, 3% lymphocytes, 8% monocytes. INR is 3.02. Sodium is 134, potassium is 3.7, chlo ride is 103, bicarbonate 24, BUN/creatinine 56/4.2 with a glucose of 108 and corrected calcium is 9.7 . Heparin-induced antiplatelet antibody is negative, using both antibiotics against heparin platelet factor 4 and his serotonin release assay in this patient ranged between 5%-8%, which is a negative r esult. Chest x-ray from today revealed an opacity in the left mid lung, thought to represent either consolidation or loculated pleural effusion, but has a chest tube in the right. Abdominal ultrasound from yesterday revealed large ascites. The patient is noted to be Clostridium difficile positive. IMPRESSION AND PLAN: The patient is a 50-year-old gentleman with history of alcohol abuse, hepatitis C and cirrhosis, history of intravenous heroin and cocaine abuse, end-stage renal disease on hemodia lysis every Monday, , Monday at [facility] via right internal jugular PermCath brought t o the [facility] after being found to be lethargic and surrounded by 30 bags of heroin. After he received 2 doses of Narcan in the Emergency Department, his mentation improved. Hospitaliza tion has been complicated by septic shock, presumed secondary to aspiration pneumonia for which the p atient had been on Levophed, vasopressin and dobutamine, although these are currently off. Of note, echocardiogram has revealed severe pulmonary hypertension. 1. The patient is status post hemodialysis yesterday, which he tolerated well. His next hemodialysi s session will be tomorrow. 2. Given the fact that the patient has cirrhosis, he is hypotensive at baseline and at present, his blood pressure is acceptable. We will continue midodrine 10 mg orally 3 times a day. If his blood p ressure would decrease again, rather than initiating pressors, we can start him on pseudoephedrine 20 mg orally 3 times a day as well. 3. The patient is noted to have a left internal jugular deep vein thrombosis. There is a concern ab out heparin-induced thrombocytopenia and thrombocytosis, so the patient was placed on argatroban inst ead of heparin infusion; however, anti heparin platelet factor 4 antibody test is negative and his se rotonin release assay is also negative, essentially ruling out heparin-induced thrombocytopenia, thro mbocytosis. In light of this, perhaps we can change the patient to unfractionated heparin infusion s o that he can be transferred out of the intensive care unit and perhaps begin warfarin given this thr ombosis, but we will defer this decision to hematology. 4. The patient's phosphorus is now well controlled, although his calcium is recorded as low, after c orrecting for the fact that his albumin is 1.8, it is 9.7, which is within normal limits and we will continue PhosLo 667 mg orally with each meal. 5. For gastrointestinal prophylaxis, the patient is on famotidine. 6. He is also on hydrocortisone since he had recently been on steroids and I would continue to taper this down to eventually off. 7. Chest tube management as per surgery, but hopefully it can be removed soon so that the patient wi ll be able to ambulate and receive some physical therapy in anticipation of possible discharge planni ng soon. 8. In addition to aspiration pneumonia, the patient has also been treated for Clostridium difficile associated diarrhea with oral vancomycin with today being day #7 out of a total of 10 days. Review of systems, past medical history, social history and family history were all reviewed and ther e are no new changes. More than 35 minutes were spent in the care of this ICU patient today. Jose Gonzalez MD cc: [phone] TT: 04/29/2016 14:08:54 Confirmation # [id number] Dictation # [id number] yung
--- NOTE | 2016-04-29 18:45 | PN ---
DATE: 04/29/[address] Latham. SUBJECTIVE: The patient is a 50-year-old male seen lying awake in bed in the intensive care unit, st ill with 1:1 observation, hospitalized for multiple medical problems including septic shock, respirat ory failure now improved, chronic kidney disease on dialysis, right-sided pneumothorax with chest tub e, severe thrombocytopenia, which is modestly improving on argatroban with consideration for heparin- induced thrombocytopenia with HIT testing negative, just reported with the patient also known to have had a subacute thrombus in the left internal jugular vein. He is otherwise resting comfortably now, analgesics being given for his pain. After conversation with Dr. Latham there will be a transition for his argatroban to be changed to Coumadin with protocol to be reviewed at the end of this dictati on. PHYSICAL EXAMINATION: VITAL SIGNS: Temperature 97.8, pulse 84, respirations 19, blood pressure 117/67, pulse ox 96%. HEENT: Unremarkable. NECK: Supple. HEART: Regular rate. LUNGS: Chest tube on the right, scattered rhonchi on the left. ABDOMEN: Soft, positive ascitic fluid wave. Minimally distended. EXTREMITIES: Faint +1 edema. NEUROLOGIC: Awake and alert. SKIN: Warm, dry and clear, ashen. LABORATORY DATA: The patient's labs were done. White blood cell count of 8.6, hemoglobin 10.0, tran tocrit 30.7, platelet count of 95,000. His INR 3.02 on argatroban. His chem metabolic panel is with in normal limits except for BUN of 56, creatinine of 4.3, status post dialysis yesterday. The patien t had a chest x-ray done today, which was read as stable position of line and tube, opacity left midd le lung could represent consolidation or loculated pleural effusion. ASSESSMENT: Septic shock, chronic kidney disease with dialysis, thrombocytopenia, subacute thrombus left internal jugular vein on argatroban now to be transitioned to Coumadin, aspiration pneumonia, Cl ostridium difficile enterocolitis, right-sided chest tube for pneumothorax, cirrhosis of liver, ascit es, IV drug abuse, history of hepatic encephalopathy, improved, hepatitis C positive, history of resp iratory failure. PLAN: After conversation with Dr. Latham, we will continue the present medical regimen with the pat ient now to be transitioned to Coumadin as per Dr. Latham's recommendation. We will continue the ar gatroban concomitantly with no loading dose, but at routine dose of 5 mg of Coumadin with the INR to be monitored and to stop the argatroban when the INR is greater than or equal to 4 on the combined re gimen of argatroban and Coumadin together. This was relayed to Dr. Flores and also to keith Vines and the nurses. With this, the patient's present INR is 3.02. It was also reported that the patient's HIT testing were noted to be negative. Results are not on the chart yet. He is also recom mended to be transferred to telemetry when he is stable. Will monitor clinically and with labs with protocol above to be implemented. Jose Alejandro Miles MD cc: [phone] TT: 04/29/2016 18:44:46 Confirmation # [id number] Dictation # [id number] jn
[2016-04-30] MEDS: Morphine 2 mg/ml ISec IVP PRN ×3 (05:43→21:56)
[2016-04-30 06:14] LABS: HEMATOCRIT 32.6 % (42.0-52.0); MEAN CELL VOLUME 90.8 fL (80.0-105.0); MEAN CORPUSCULAR HEMOGLOBIN 29.8 pg (25.0-35.0); MEAN CORPUSCULAR HGB CONC 32.8 g/dl (31.0-37.0); MEAN PLATELET VOLUME 10.8 fl (7.0-11.0); PLATELET COUNT 117 10^3/uL (120.0-450.0); RED CELL DISTRIBUTION WIDTH 15.7 % (11.5-14.5); WHITE BLOOD COUNT 10.6 10^3/ul (4.5-11.0)
[2016-04-30 06:15] LABS: ADD MANUAL DIFF? YES
[2016-04-30 06:23] LABS: BILIRUBIN,TOTAL 0.7 mg/dL (0.2-1.3); CALCIUM 7.7 mg/dL (8.4-10.5); MAGNESIUM 1.9 mg/dL (1.7-2.2); PHOSPHOROUS 3.5 mg/dL (2.5-4.5); POTASSIUM 3.3 mmol/L (3.6-5.0); TOTAL PROTEIN 3.8 g/dL (5.8-8.3)
[2016-04-30 06:34] LABS: INR 5.61 (0.93-1.08)
[2016-04-30 09:01] LABS: BAND 4 % (0-2); NEUTROPHIL 87 % (50.0-70.0)
[2016-04-30 09:02] LABS: ANISOCYTOSIS SLIGHT; HYPOCHROMIA 1+; PLATELET ESTIMATE SL. DEC. (NORMAL)
--- NOTE | 2016-04-30 09:34 | PN ---
DATE: 04/30/2016 The patient is in bed and was seen earlier today in the CCU, 129, bed 4. The patient is awake and re sponsive. No fevers have been documented. PHYSICAL EXAMINATION: VITAL SIGNS: Temperature is 97. Blood pressure is 108/50, respiratory rate of 22, heart rate of 79. HEENT: Unremarkable. NECK: Supple. LUNGS: Have decreased breath sounds. HEART: Normal S1, S2. ABDOMEN: Soft, nontender. LABORATORY EXAMINATION: Reveals a white count of 10,000, hemoglobin of 10, platelets of 117. Chemis tries reveal the BUN of 73, creatinine of 5.1. Initial fluid was the pleural fluid of 587 WBCs. The peritoneal fluid has 25,000 WBCs with 28% polys. Cultures reveal Klebsiella pneumoniae species in t he sputum. Cultures of the ascitic fluid has no growth. Klebsiella is mendieta resistant. It is ESBL Kl ebsiella. The stool for C. diff antigen is positive, and C toxin is negative. Review of the orders reveals the patient to be on p.o. vancomycin. ASSESSMENT AND PLAN: This is a 50-year-old male with septic shock, multiorgan dysfunction syndrome, and acute toxic metabolic encephalopathy, chronic renal failure, hypoxic respiratory failure, status post ventilator dependence with probable right-sided severe healthcare-associated pneumonia and Klebs iella extended-spectrum beta-lactamase, producing multidrug resistance with pleural effusion, and sta tus post chest tube placement, post-procedure day #8 in a patient with possibly overdose on heroin, a nd now is status post treatment for pneumonia and pseudomembranous colitis. Today is day #8 of 10 da ys of p.o. vancomycin, and we will follow closely with you. Krystian Young MD cc: [phone] TT: 04/30/2016 09:33:35 Confirmation # [id number] Dictation # [id number] yung
[2016-04-30] MEDS: Vancomycin 25 MG/ML PO SCH ×4 (10:44→22:00)
--- NOTE | 2016-04-30 10:54 | CP.PCM.PN ---
<Kenneth Christine - Last Filed: 04/30/16 10:54> Subjective - Date & Time of Evaluation Date of Evaluation: 04/30/16 Time of Evaluation: 07:00 - Subjective Subjective: Patient seen and examined at bedside. TLC catheter removed overnight. Patient was in the middle of HD during the examination. Not in acute distress. Chest tube in place. Denies headache, fever, shortness of breath, chest pain, Nausea, vomiting, or fevers. Objective - Vital Signs/Intake and Output Vital Signs (last 24 hours): Temp Pulse Resp BP Pulse Ox 97.0 F L 79 23 102/47 L 96 04/30/16 06:00 04/30/16 06:00 04/30/16 06:00 04/30/16 10:46 04/30/16 06:00 Intake and Output: 04/30/16 04/30/16 06:59 18:59 Intake Total 264 Output Total 200 Balance 64 - Medications Medications: Current Medications Albuterol/Ipratropium (Duoneb 3 Mg/0.5 Mg (3 Ml) Ud) 3 ml IH [id number] PRN PRN Reason: Shortness of Breath Last Admin: 04/27/16 07:48 Dose: 3 ml Calcium Acetate (Phoslo) 667 mg PO WM SIMON Last Admin: 04/30/16 10:45 Dose: 667 mg Famotidine (Pepcid) 40 mg PO HS SIMON Last Admin: 04/29/16 21:52 Dose: 40 mg Furosemide (Lasix) 20 mg PO DAILY SIMON Last Admin: 04/30/16 10:46 Dose: 20 mg Hydrocortisone Sodium Succinate (Solu-Cortef) 25 mg IVP Q12 SIMON Last Admin: 04/30/16 10:45 Dose: 25 mg Argatroban 250 mg/ Dextrose 252.5 mls @ 2.43 mls/hr IV .Q24H SIMON; 0.5 MCG/KG/ MIN PRN Reason: Protocol Last Admin: 04/29/16 13:23 Dose: 2.43 mls/hr Lactulose (Enulose) 20 gm PO DAILY SIMON Last Admin: 04/30/16 10:44 Dose: 20 gm Lorazepam (Ativan) 2 mg IVP Q2H PRN; Protocol PRN Reason: Agitation Last Admin: 04/29/16 20:00 Dose: 2 mg Midodrine (Proamatine) 10 mg PO TID [facility] Last Admin: 04/30/16 10:45 Dose: 10 mg Morphine Sulfate (Morphine) 2 mg IVP Q6H PRN PRN Reason: Pain, moderate (4-7) Last Admin: 04/30/16 05:43 Dose: 2 mg Nicotine (Nicoderm Cq) 1 patch TD DAILY [facility] Last Admin: 04/30/16 10:45 Dose: 1 patch Vancomycin HCl (Vancocin 25 Mg/Ml (Oral Use)) 125 mg PO QID [facility] PRN Reason: Protocol Last Admin: 04/30/16 10:44 Dose: 125 mg Warfarin Sodium (Coumadin) 5 mg PO 1800 [facility] PRN Reason: Protocol Last Admin: 04/29/16 17:34 Dose: 5 mg - Labs Labs: 04/30/16 06:00 04/30/16 06:00 PT 60.6 Seconds (9.9-11.8) H* 04/30/16 06:00 INR 5.61 (0.93-1.08) H* 04/30/16 06:00 APTT 60.1 Seconds (23.7-30.8) H 04/28/16 08:20 - Constitutional Appears: Non-toxic, No Acute Distress - Head Exam Head Exam: ATRAUMATIC, NORMAL INSPECTION, NORMOCEPHALIC - ENT Exam ENT Exam: Mucous Membranes Moist, Normal Exam - Respiratory Exam Respiratory Exam: Clear to Ausculation Bilateral, NORMAL BREATHING PATTERN. absent: Rhonchi - Cardiovascular Exam Cardiovascular Exam: REGULAR RHYTHM, +S1, +S2 - GI/Abdominal Exam GI & Abdominal Exam: Distended, Soft, Normal Bowel Sounds. absent: Guarding, Rigid, Tenderness - Extremities Exam Extremities Exam: Normal Inspection. absent: Calf Tenderness, Pedal Edema - Neurological Exam Neurological Exam: Alert, Awake, Oriented x3 - Psychiatric Exam Psychiatric exam: Normal Affect, Normal Mood - Skin Skin Exam: Intact, Normal Color, Warm Assessment and Plan - Assessment and Plan (Free Text) Assessment: 50 y/o male with PMH of ESRD on HD (T,TH,S) cirrhosis, hep C, alcohol abuse, and polysubstance abuse with cocaine and heroin use presented with hypoxemic respiratory failure and septic shock secondary to klebsiella pneumonia and SBP. Pt resting comfortably on nasal cannula, with no respiratory distress. No pressors required at this time. Awaiting hem/onc recommendations on bridging patient on from agatroban to coumadin. HIT panel and antibodies negative. Surgery planning for removal of chest tube and central line later today. Patient will be transferred to telemetry today. Neuro - AAO x3 at this time. - Continue lactulose for possible hepatic encephalopathy Cardio - Currently on warfarin. INR today was 5.6. Per Heme/onc, repeat INR and will decided on warfarin dose - Continue Midodrine - BP stable - echo: EF of 50% with severe pulmonary HTN and bioprosthesis valve - cardiology following pulm - CTA demonstrated no PE - B/l pleural effusions, resolving. Abx stopped - CXR shows stable left mid lung consolidation of locculated effusion - Right sided chest tube on suction without air leak. Output: 350 cc of serosanganous fluid - Chest tube will likely be removed today by surgery - Nicotine patch ordered - aspiration precaution, HOB >35 - surgery following GI - lactulose and rifaxmin for empiric treatment for hepatic encephalopathy - Continue treatment for SBP - Abdominal US shows large amount of ascites. Will consider lasix to treat as patient is on anticoagulation and would not be a good candidate for paracentesis - protonix ppx - GI following, IR following Renal - ESRD on HD T,T,S - Maintain euvolemia - Replenish electrolytes as needed endo - fingerstick q6h - cont to monitor glucose ID - Afebrile, no leukocytosis - Will taper steroids - septic shock 2/2 aspiration PNA, (+) Klebsiella pna - C Diff Ag positive, continue vancomycin, - Abx stopped after 8 day course - ID following, Dr. Millard <Elly Flores - Last Filed: 04/30/16 11:54> Objective - Vital Signs/Intake and Output Vital Signs (last 24 hours): Temp Pulse Resp BP Pulse Ox 97.0 F L 79 23 102/47 L 96 04/30/16 06:00 04/30/16 06:00 04/30/16 06:00 04/30/16 10:46 04/30/16 06:00 Intake and Output: 04/30/16 04/30/16 06:59 18:59 Intake Total 264 Output Total 200 Balance 64 - Medications Medications: Current Medications Albuterol/Ipratropium (Duoneb 3 Mg/0.5 Mg (3 Ml) Ud) 3 ml IH [id number] PRN PRN Reason: Shortness of Breath Last Admin: 04/27/16 07:48 Dose: 3 ml Calcium Acetate (Phoslo) 667 mg PO WM [facility] Last Admin: 04/30/16 10:45 Dose: 667 mg Famotidine (Pepcid) 40 mg PO HS [facility] Last Admin: 04/29/16 21:52 Dose: 40 mg Furosemide (Lasix) 20 mg PO DAILY [facility] Last Admin: 04/30/16 10:46 Dose: 20 mg Hydrocortisone Sodium Succinate (Solu-Cortef) 25 mg IVP Q12 [facility] Last Admin: 04/30/16 10:45 Dose: 25 mg Argatroban 250 mg/ Dextrose 252.5 mls @ 2.43 mls/hr IV .Q24H SIMON; 0.5 MCG/KG/ MIN PRN Reason: Protocol Last Admin: 04/29/16 13:23 Dose: 2.43 mls/hr Lactulose (Enulose) 20 gm PO DAILY [facility] Last Admin: 04/30/16 10:44 Dose: 20 gm Lorazepam (Ativan) 2 mg IVP Q2H PRN; Protocol PRN Reason: Agitation Last Admin: 04/29/16 20:00 Dose: 2 mg Midodrine (Proamatine) 10 mg PO TID [facility] Last Admin: 04/30/16 10:45 Dose: 10 mg Morphine Sulfate (Morphine) 2 mg IVP Q6H PRN PRN Reason: Pain, moderate (4-7) Last Admin: 04/30/16 05:43 Dose: 2 mg Nicotine (Nicoderm Cq) 1 patch TD DAILY [facility] Last Admin: 04/30/16 10:45 Dose: 1 patch Vancomycin HCl (Vancocin 25 Mg/Ml (Oral Use)) 125 mg PO QID [facility] PRN Reason: Protocol Last Admin: 04/30/16 10:44 Dose: 125 mg Warfarin Sodium (Coumadin) 5 mg PO 1800 [facility] PRN Reason: Protocol Last Admin: 04/29/16 17:34 Dose: 5 mg - Labs Labs: 04/30/16 06:00 04/30/16 06:00 PT 60.6 Seconds (9.9-11.8) H* 04/30/16 06:00 INR 5.61 (0.93-1.08) H* 04/30/16 06:00 APTT 60.1 Seconds (23.7-30.8) H 04/28/16 08:20 Attending/Attestation - Attestation I have personally seen and examined this patient.: Yes I have fully participated in the care of the patient.: Yes I have reviewed all pertinent clinical information, including history, physical exam and plan: Yes Notes (Text): 04/30/16 11:46 50 year old male with past medical history of CAD s/p CABG, alcohol abuse, substance abuse, chronic liver disease and ESRD who presented with altered mental status, sepsis and hypoxic respiratory failure s/p intubation. He was later extubated and is now on nasal cannula oxygen. He was found to have aspiration pneumonia (sputum culture growing Klebsiella) and has completed iv meropenem therapy. He also had bilateral pleural effusion for which he is s/p chest tube. Continue with chest tube care as per surgery. Plan is to possibly remove chest tube soon as per surgery. Serial cxrs have been stable. He was found to have left IJV DVT. He is on agatroban drip and started on coumadin last night as well. Today INR is 5.61. Will d/c agatroban drip and recheck INR later today to decide regarding anticoagulation tonight with coumadin as per hematology recommendations. HIT panel was negative. Thrombocytopenia has been improving. Continue with dialysis for ESRD as per nephrology. He is off pressors. He is on midodrine. Continue with tapering steroids. He is on po flagyl for C Diff diarrhea. ID is following the patient. Abdominal ultasound yesterday showed large ascites. He was started on lasix for diuresis and paracentesis was deferred as he is on anticoagulation. He is comfortable. Elly Flores MD Hospitalist.
[2016-04-30 14:00] LABS: INR 1.86 (0.93-1.08)
--- NOTE | 2016-04-30 15:17 | CP.PCM.PN ---
Subjective - Date & Time of Evaluation Date of Evaluation: 04/30/16 Time of Evaluation: 12:00 - Subjective Subjective: General Surgery progress note for Dr. Lowery Pt s/e at bedside this AM. NAEO. Patient states that he has some pain at the chest tube site, but no SOB or any other symptoms. 200cc of clear sero- sanguinous fluid drainage from the chest tube. Objective - Vital Signs/Intake and Output Vital Signs (last 24 hours): Temp Pulse Resp BP Pulse Ox 97.0 F L 79 23 102/47 L 96 04/30/16 06:00 04/30/16 06:00 04/30/16 06:00 04/30/16 10:46 04/30/16 06:00 Intake and Output: 04/30/16 04/30/16 06:59 18:59 Intake Total 264 Output Total 200 Balance 64 - Medications Medications: Current Medications Albuterol/Ipratropium (Duoneb 3 Mg/0.5 Mg (3 Ml) Ud) 3 ml IH [id number] PRN PRN Reason: Shortness of Breath Last Admin: 04/27/16 07:48 Dose: 3 ml Calcium Acetate (Phoslo) 667 mg PO WM SIMON Last Admin: 04/30/16 10:45 Dose: 667 mg Famotidine (Pepcid) 40 mg PO HS [facility] Last Admin: 04/29/16 21:52 Dose: 40 mg Furosemide (Lasix) 20 mg PO DAILY [facility] Last Admin: 04/30/16 10:46 Dose: 20 mg Hydrocortisone Sodium Succinate (Solu-Cortef) 25 mg IVP Q12 [facility] Last Admin: 04/30/16 10:45 Dose: 25 mg Argatroban 250 mg/ Dextrose 252.5 mls @ 2.43 mls/hr IV .Q24H SIMON; 0.5 MCG/KG/ MIN PRN Reason: Protocol Last Admin: 04/29/16 13:23 Dose: 2.43 mls/hr Lactulose (Enulose) 20 gm PO DAILY [facility] Last Admin: 04/30/16 10:44 Dose: 20 gm Lorazepam (Ativan) 2 mg IVP Q2H PRN; Protocol PRN Reason: Agitation Last Admin: 04/29/16 20:00 Dose: 2 mg Midodrine (Proamatine) 10 mg PO TID [facility] Last Admin: 04/30/16 10:45 Dose: 10 mg Morphine Sulfate (Morphine) 2 mg IVP Q6H PRN PRN Reason: Pain, moderate (4-7) Last Admin: 04/30/16 05:43 Dose: 2 mg Nicotine (Nicoderm Cq) 1 patch TD DAILY [facility] Last Admin: 04/30/16 10:45 Dose: 1 patch Vancomycin HCl (Vancocin 25 Mg/Ml (Oral Use)) 125 mg PO QID [facility] PRN Reason: Protocol Last Admin: 04/30/16 10:44 Dose: 125 mg Warfarin Sodium (Coumadin) 2.5 mg PO 1800 ONE PRN Reason: Protocol Stop: 04/30/16 18:01 - Labs Labs: 04/30/16 06:00 04/30/16 06:00 PT 20.1 Seconds (9.9-11.8) H 04/30/16 13:30 INR 1.86 (0.93-1.08) H 04/30/16 13:30 APTT 60.1 Seconds (23.7-30.8) H 04/28/16 08:20 - Constitutional Appears: Well, Non-toxic, No Acute Distress - Head Exam Head Exam: ATRAUMATIC, NORMOCEPHALIC - Eye Exam Eye Exam: Normal appearance - ENT Exam ENT Exam: Mucous Membranes Moist - Respiratory Exam Respiratory Exam: NORMAL BREATHING PATTERN. absent: Accessory Muscle Use, Respiratory Distress Additional comments: chest tube inserted on right chest with minimal sero-sanguinous drainage. On water seal. No air leak present - Cardiovascular Exam Cardiovascular Exam: RRR - GI/Abdominal Exam GI & Abdominal Exam: Distended (moderately distended), Soft. absent: Tenderness - Neurological Exam Neurological Exam: Alert, Awake, Oriented x3 - Psychiatric Exam Psychiatric exam: Normal Affect, Normal Mood - Skin Skin Exam: Dry, Intact, Normal Color, Warm Assessment and Plan - Assessment and Plan (Free Text) Assessment: 50 y/o M POD#9 s/p R side chest tube placement Plan: - f/u CXR tomorrow AM - monitor chest tube drainage - dressing changes daily - D/C chest tube on Monday if patient continues to improve - Cont ICU management Pt discussed w/ Dr. Sebastián Alexandra, PGY1
--- NOTE | 2016-05-01 00:19 | CP.PCM.PN ---
Subjective - Date & Time of Evaluation Date of Evaluation: 05/01/16 Time of Evaluation: 07:00 - Subjective Subjective: General Surgery progress note for Dr. Lowery Pt s/e at bedside this AM. NAEO. Patient reports pain at the tube insertion site but denies any SOB or any other symptoms. Objective - Vital Signs/Intake and Output Vital Signs (last 24 hours): Temp Pulse Resp BP Pulse Ox 97.8 F 80 23 102/47 L 96 04/30/16 18:00 04/30/16 18:00 04/30/16 06:00 04/30/16 10:46 04/30/16 06:00 Intake and Output: 04/30/16 05/01/16 18:59 06:59 Intake Total 612 Output Total 2540 Balance -1928 - Medications Medications: Current Medications Albuterol/Ipratropium (Duoneb 3 Mg/0.5 Mg (3 Ml) Ud) 3 ml IH [id number] PRN PRN Reason: Shortness of Breath Last Admin: 04/27/16 07:48 Dose: 3 ml Calcium Acetate (Phoslo) 667 mg PO WM [facility] Last Admin: 04/30/16 19:11 Dose: 667 mg Famotidine (Pepcid) 40 mg PO HS [facility] Last Admin: 04/30/16 22:01 Dose: 40 mg Furosemide (Lasix) 20 mg PO DAILY [facility] Last Admin: 04/30/16 10:46 Dose: 20 mg Hydrocortisone Sodium Succinate (Solu-Cortef) 25 mg IVP Q12 [facility] Last Admin: 04/30/16 22:01 Dose: 25 mg Argatroban 250 mg/ Dextrose 252.5 mls @ 2.43 mls/hr IV .Q24H [facility]; 0.5 MCG/KG/ MIN PRN Reason: Protocol Last Admin: 04/29/16 13:23 Dose: 2.43 mls/hr Lactulose (Enulose) 20 gm PO DAILY [facility] Last Admin: 04/30/16 10:44 Dose: 20 gm Lorazepam (Ativan) 2 mg IVP Q2H PRN; Protocol PRN Reason: Agitation Last Admin: 04/29/16 20:00 Dose: 2 mg Midodrine (Proamatine) 10 mg PO TID [facility] Last Admin: 04/30/16 19:10 Dose: 10 mg Morphine Sulfate (Morphine) 2 mg IVP Q6H PRN PRN Reason: Pain, moderate (4-7) Last Admin: 04/30/16 21:56 Dose: 2 mg Nicotine (Nicoderm Cq) 1 patch TD DAILY [facility] Last Admin: 04/30/16 10:45 Dose: 1 patch Vancomycin HCl (Vancocin 25 Mg/Ml (Oral Use)) 125 mg PO QID [facility] PRN Reason: Protocol Last Admin: 04/30/16 19:26 Dose: 125 mg - Labs Labs: 04/30/16 06:00 04/30/16 06:00 PT 20.1 Seconds (9.9-11.8) H 04/30/16 13:30 INR 1.86 (0.93-1.08) H 04/30/16 13:30 APTT 60.1 Seconds (23.7-30.8) H 04/28/16 08:20 - Constitutional Appears: Non-toxic, No Acute Distress - Head Exam Head Exam: ATRAUMATIC, NORMOCEPHALIC - Eye Exam Eye Exam: Normal appearance - ENT Exam ENT Exam: Mucous Membranes Moist - Respiratory Exam Respiratory Exam: NORMAL BREATHING PATTERN. absent: Accessory Muscle Use, Respiratory Distress Additional comments: Chest tube inserted on right chest on water seal. Moderate serous fluid leak around tube. No air leak - Cardiovascular Exam Cardiovascular Exam: REGULAR RHYTHM. absent: Bradycardia, Tachycardia - GI/Abdominal Exam GI & Abdominal Exam: Distended, Soft. absent: Tenderness - Extremities Exam Extremities Exam: Tenderness. absent: Calf Tenderness, Pedal Edema - Neurological Exam Neurological Exam: Alert, Awake, Oriented x3 - Psychiatric Exam Psychiatric exam: Normal Affect, Normal Mood - Skin Skin Exam: Dry, Intact, Normal Color, Warm Assessment and Plan - Assessment and Plan (Free Text) Assessment: 50 y/o M with right loculated pleural effusion POD#10 s/p R side chest tube placement CXR: no significant pleural effusion on R Plan: - f/u CXR in AM - monitor chest tube drainage - dressing changes daily - D/C chest tube on Monday if patient continues to improve - Cont ICU management Pt discussed w/ Dr. Sebastián Alexandra, PGY1
[2016-05-01] MEDS: Morphine 2 mg/ml ISec IVP PRN ×4 (02:43→22:59)
[2016-05-01 05:55] LABS: ADD MANUAL DIFF? NO
[2016-05-01 06:07] LABS: ALB/GLOB RATIO 0.9 (1.1-1.8); BILIRUBIN,TOTAL 0.7 mg/dL (0.2-1.3); CALCIUM 7.6 mg/dL (8.4-10.5); POTASSIUM 3.6 mmol/L (3.6-5.0); TOTAL PROTEIN 3.8 g/dL (5.8-8.3)
[2016-05-01 06:12] LABS: BASO # 0.01 K/mm3 (0.0-2.0); BASO % 0.1 % (0.0-3.0); EOS # 0.1 (0.0-0.7); EOS % 1.2 % (1.5-5.0); GRAN # 8.53 (1.4-6.5); GRAN % 83.4 % (50.0-68.0); LYMPH # 0.9 (1.2-3.4); LYMPH % 9.1 % (22.0-35.0); MEAN CELL VOLUME 90.4 fL (80.0-105.0); MEAN CORPUSCULAR HEMOGLOBIN 29.4 pg (25.0-35.0); MEAN CORPUSCULAR HGB CONC 32.6 g/dl (31.0-37.0); MEAN PLATELET VOLUME 10.6 fl (7.0-11.0); MONO # 0.6 (0.1-0.6); MONO % 6.2 % (1.0-6.0); PLATELET COUNT 118 10^3/uL (120.0-450.0); RED CELL DISTRIBUTION WIDTH 15.7 % (11.5-14.5); WHITE BLOOD COUNT 10.2 10^3/ul (4.5-11.0)
[2016-05-01 06:19] LABS: INR 2.18 (0.93-1.08)
[2016-05-01] MEDS: Vancomycin 25 MG/ML PO SCH ×4 (09:08→22:02)
--- NOTE | 2016-05-01 10:21 | CP.PCM.PN ---
<Leonel Pierre - Last Filed: 05/01/16 10:18> Subjective - Date & Time of Evaluation Date of Evaluation: 05/01/16 Time of Evaluation: 10:18 - Subjective Subjective: Pt seen and examined at bedside. Pt doing well with no complaints at this time. No acute events overnight. Right chest tube in place. Pt is still on 1:1 at this time. Denies CP, SOB, N/V/D, fevers, chills. Objective - Vital Signs/Intake and Output Vital Signs (last 24 hours): Temp Pulse Resp BP Pulse Ox 98 F 92 H 172 H 107/52 L 95 05/01/16 07:20 05/01/16 07:14 05/01/16 07:14 05/01/16 09:10 04/30/16 13:00 Intake and Output: 05/01/16 05/01/16 06:59 18:59 Intake Total 460 Output Total 50 Balance 410 - Medications Medications: Current Medications Albuterol/Ipratropium (Duoneb 3 Mg/0.5 Mg (3 Ml) Ud) 3 ml IH [id number] PRN PRN Reason: Shortness of Breath Last Admin: 04/27/16 07:48 Dose: 3 ml Calcium Acetate (Phoslo) 667 mg PO WM [facility] Last Admin: 05/01/16 08:12 Dose: 667 mg Famotidine (Pepcid) 40 mg PO HS [facility] Last Admin: 04/30/16 22:01 Dose: 40 mg Furosemide (Lasix) 20 mg PO DAILY [facility] Last Admin: 05/01/16 09:10 Dose: 20 mg Hydrocortisone Sodium Succinate (Solu-Cortef) 25 mg IVP Q12 [facility] Last Admin: 05/01/16 09:06 Dose: 25 mg Argatroban 250 mg/ Dextrose 252.5 mls @ 2.43 mls/hr IV .Q24H [facility]; 0.5 MCG/KG/ MIN PRN Reason: Protocol Last Admin: 04/29/16 13:23 Dose: 2.43 mls/hr Lactulose (Enulose) 20 gm PO DAILY [facility] Last Admin: 05/01/16 09:06 Dose: 20 gm Lorazepam (Ativan) 2 mg IVP Q2H PRN; Protocol PRN Reason: Agitation Last Admin: 05/01/16 01:45 Dose: 2 mg Midodrine (Proamatine) 10 mg PO TID [facility] Last Admin: 05/01/16 09:07 Dose: 10 mg Morphine Sulfate (Morphine) 2 mg IVP Q6H PRN PRN Reason: Pain, moderate (4-7) Last Admin: 05/01/16 08:12 Dose: 2 mg Nicotine (Nicoderm Cq) 1 patch TD DAILY [facility] Last Admin: 05/01/16 09:08 Dose: 1 patch Vancomycin HCl (Vancocin 25 Mg/Ml (Oral Use)) 125 mg PO QID [facility] PRN Reason: Protocol Last Admin: 05/01/16 09:08 Dose: 125 mg - Labs Labs: 05/01/16 05:30 05/01/16 05:30 PT 23.5 Seconds (9.9-11.8) H 05/01/16 05:30 INR 2.18 (0.93-1.08) H 05/01/16 05:30 APTT 60.1 Seconds (23.7-30.8) H 04/28/16 08:20 - Constitutional Appears: Well, No Acute Distress - Head Exam Head Exam: ATRAUMATIC, NORMAL INSPECTION, NORMOCEPHALIC - ENT Exam ENT Exam: Mucous Membranes Moist, Normal Exam - Neck Exam Neck Exam: Normal Inspection. absent: Lymphadenopathy - Respiratory Exam Respiratory Exam: Clear to Ausculation Bilateral, NORMAL BREATHING PATTERN. absent: Rhonchi, Wheezes - Cardiovascular Exam Cardiovascular Exam: RRR, +S1, +S2 - GI/Abdominal Exam GI & Abdominal Exam: Distended, Soft, Normal Bowel Sounds. absent: Firm, Guarding, Tenderness - Extremities Exam Extremities Exam: Normal Inspection. absent: Calf Tenderness, Pedal Edema - Neurological Exam Neurological Exam: Alert, Awake, Oriented x3 - Psychiatric Exam Psychiatric exam: Normal Affect, Normal Mood - Skin Skin Exam: Intact, Normal Color, Warm Assessment and Plan - Assessment and Plan (Free Text) Plan: 50 y/o male with PMH of ESRD on HD (T,,S) cirrhosis, hep C, alcohol abuse, and polysubstance abuse with cocaine and heroin use presented with hypoxemic respiratory failure and septic shock secondary to klebsiella pneumonia and SBP. Pt is still on agatroban in addition to coumadin. As per recs from Heme/onc, pt should be on both anticoagulants until INR is greater than 4. INR today is 2.18. Chest tube planned for removal tomorrow. Ascites is beginning to increase , will await GI recs on treatment options. Neuro - AAO x3 at this time. - Continue lactulose for possible hepatic encephalopathy Cardio - INR subtherapeutic at this time, will continue coumadin as per hem/onc. - Continue Midodrine - BP stable - echo: EF of 50% with severe pulmonary HTN and bioprosthesis valve - cardiology following Pulm - CTA demonstrated no PE - B/l pleural effusions, resolving. Abx stopped - CXR today pending - Right sided chest tube on suction without air leak. Output: 50 cc of serosanganous fluid overnight - Chest tube will likely be removed tomorrow by surgery - aspiration precaution, HOB >35 - surgery following GI - lactulose for empiric treatment for hepatic encephalopathy - Ascites increasing, will consider albumin vs paracentesis - Will await GI recs - Abdominal US shows large amount of ascites. - protonix ppx Renal - ESRD on HD T,T,S - Maintain euvolemia - Replenish electrolytes as needed endo - fingerstick q6h - cont to monitor glucose ID - Afebrile, no leukocytosis - Will taper steroids - septic shock 2/2 aspiration PNA, (+) Klebsiella pna - C Diff Ag positive, continue vancomycin for 2 more days - Abx stopped after 8 day course - ID following, Dr. Millard Seen, reviewed, and discussed with attending Gabby, PGY-1 <Elly Flores - Last Filed: 05/01/16 11:15> Objective - Vital Signs/Intake and Output Vital Signs (last 24 hours): Temp Pulse Resp BP Pulse Ox 98 F 61 21 107/52 L 95 05/01/16 07:20 05/01/16 09:00 05/01/16 09:00 05/01/16 09:10 04/30/16 13:00 Intake and Output: 05/01/16 05/01/16 06:59 18:59 Intake Total 460 Output Total 50 Balance 410 - Medications Medications: Current Medications Albuterol/Ipratropium (Duoneb 3 Mg/0.5 Mg (3 Ml) Ud) 3 ml IH [id number] PRN PRN Reason: Shortness of Breath Last Admin: 04/27/16 07:48 Dose: 3 ml Calcium Acetate (Phoslo) 667 mg PO WM [facility] Last Admin: 05/01/16 08:12 Dose: 667 mg Famotidine (Pepcid) 40 mg PO HS [facility] Last Admin: 04/30/16 22:01 Dose: 40 mg Furosemide (Lasix) 20 mg PO DAILY [facility] Last Admin: 05/01/16 09:10 Dose: 20 mg Hydrocortisone Sodium Succinate (Solu-Cortef) 25 mg IVP DAILY [facility] Argatroban 250 mg/ Dextrose 252.5 mls @ 2.43 mls/hr IV .Q24H [facility]; 0.5 MCG/KG/ MIN PRN Reason: Protocol Last Admin: 04/29/16 13:23 Dose: 2.43 mls/hr Lactulose (Enulose) 20 gm PO DAILY [facility] Last Admin: 05/01/16 09:06 Dose: 20 gm Lorazepam (Ativan) 2 mg IVP Q2H PRN; Protocol PRN Reason: Agitation Last Admin: 05/01/16 01:45 Dose: 2 mg Midodrine (Proamatine) 10 mg PO TID [facility] Last Admin: 05/01/16 09:07 Dose: 10 mg Morphine Sulfate (Morphine) 2 mg IVP Q6H PRN PRN Reason: Pain, moderate (4-7) Last Admin: 05/01/16 08:12 Dose: 2 mg Nicotine (Nicoderm Cq) 1 patch TD DAILY [facility] Last Admin: 05/01/16 09:08 Dose: 1 patch Vancomycin HCl (Vancocin 25 Mg/Ml (Oral Use)) 125 mg PO QID [facility] PRN Reason: Protocol Last Admin: 05/01/16 09:08 Dose: 125 mg - Labs Labs: 05/01/16 05:30 05/01/16 05:30 PT 23.5 Seconds (9.9-11.8) H 05/01/16 05:30 INR 2.18 (0.93-1.08) H 05/01/16 05:30 APTT 60.1 Seconds (23.7-30.8) H 04/28/16 08:20 Attending/Attestation - Attestation I have personally seen and examined this patient.: Yes I have fully participated in the care of the patient.: Yes I have reviewed all pertinent clinical information, including history, physical exam and plan: Yes Notes (Text): 05/01/16 11:10 50 year old male with past medical history of CAD s/p CABG, alcohol abuse, substance abuse, chronic liver disease and ESRD who presented with altered mental status, sepsis and hypoxic respiratory failure s/p intubation. He was later extubated and is now on nasal cannula oxygen. His mental status has improved to baseline. He is s/p iv meropenem thearapy for pneumonia. Sputum culture grew klebsiella. He has pleural effusion for which he is s/p chest tube. Continue with chest tube care as per surgery. Plan is to possibly remove chest tube tomorrow as per surgery. Serial cxrs have been stable and today's cxr is pending. He was found to have left IJV DVT. He was on agatroban drip which was discontinued yesterday. He is on coumadin as per hematology. INR today is 2.06. His thrombocytopenia has been improving. HIT panel was negative. He is on dialysis for ESRD. He has been off pressors. He is on midodrine and tapering steroids. He is on po flagyl for C Diff diarrhea. ID is following the patient. His diarrhea has improved. Recent abdominal ultasound showed large ascites. He is on lasix and hemodialysis. He received albumin last week. Paracentesis was not done on Monday as he was on agatroban with supratherapeutic INR. At time time we will request GI follow up. Overall he has been stable over the past few days. He is on 1:1 for agitation few nights prior. I did discuss with ICU staff to consider discontinuing his 1: 1 sitter if there are no acute issues. Elly Flores MD Hospitalist.
--- NOTE | 2016-05-01 10:55 | PN ---
DATE: 05/01/2016 The patient is in bed, in no acute distress. The patient was seen in CCU 129, bed 4. No fevers and no chills. PHYSICAL EXAMINATION: VITAL SIGNS: Temperature is 98, blood pressure is 107/50, respiratory rate of 18, heart rate of 92. HEENT: Unremarkable. NECK: Supple. LUNGS: Have decreased breath sounds. HEART: Normal S1, S2. ABDOMEN: Soft, nontender. LABORATORY EXAMINATION: Reveals a white count of 10,000, hemoglobin of 10, platelets of 118. BUN of 55, creatinine is 1.6. Toxicology is noted. Immunology is noted. Microbiology reveals Klebsiella pneumoniae in the sputum. The blood cultures have no growth and stool for C. diff antigen and toxin, the antigen is positive, the toxin is negative. Review of orders reveals the patient to have p.o. vancomycin. ASSESSMENT AND PLAN: A 50-year-old male with septic shock with multiorgan dysfunction syndrome and a cute toxic metabolic encephalopathy and chronic renal failure, hypoxic respiratory failure, status po st ventilatory dependence with probable right-sided severe healthcare-associated pneumonia and Klebsi mima and extended-spectrum beta-lactamase producing multidrug resistant pleural effusion, status post chest tube placement, post-procedure day #9, possible overdose on heroin, status post treatment for pneumonia and now with pseudomembranous colitis. Today is day #9 of 10 days of p.o. vancomycin. Wou ld complete 10 days. Krystian Young MD cc: 350 TT: 05/01/2016 10:54:42 Confirmation # [id number] Dictation # [id number] en
--- NOTE | 2016-05-01 12:18 | RAD ---
HISTORY: re-evaluate pleural effusion COMPARISON: Chest x-ray performed 04/28/16 TECHNIQUE: Chest, one view. FINDINGS: Right-sided dialysis catheter. Right-sided chest tube. LUNGS: Mild central/pulmonary vascular congestion. Interval decrease in left mid lung consolidation. Please note that chest x-ray has limited sensitivity for the detection of pulmonary masses. PLEURA: No significant pleural effusion identified. No definite pneumothorax . CARDIOVASCULAR: Median sternotomy wires. Mild cardiomegaly. Cardiac valve prosthesis. OSSEOUS STRUCTURES: No acute osseous abnormality identified. VISUALIZED UPPER ABDOMEN: Left axillary and subclavian stents. OTHER FINDINGS: Subcutaneous emphysema, right chest wall. IMPRESSION: Right-sided dialysis catheter. Right-sided chest tube. Mild central/pulmonary vascular congestion. Interval decrease in left mid lung consolidation. Subcutaneous emphysema, right chest wall.
[2016-05-02 05:24] LABS: BASO # 0.01 K/mm3 (0.0-2.0); BASO % 0.1 % (0.0-3.0); EOS # 0.3 (0.0-0.7); EOS % 2.9 % (1.5-5.0); GRAN # 8.96 (1.4-6.5); GRAN % 79.2 % (50.0-68.0); HEMATOCRIT 30.7 % (42.0-52.0); LYMPH # 0.9 (1.2-3.4); MEAN CELL VOLUME 92.7 fL (80.0-105.0); MEAN CORPUSCULAR HEMOGLOBIN 29.6 pg (25.0-35.0); MEAN CORPUSCULAR HGB CONC 31.9 g/dl (31.0-37.0); MEAN PLATELET VOLUME 11.5 fl (7.0-11.0); MONO # 1.1 (0.1-0.6); MONO % 9.8 % (1.0-6.0); PLATELET COUNT 112 10^3/uL (120.0-450.0); RED CELL DISTRIBUTION WIDTH 16.2 % (11.5-14.5); WHITE BLOOD COUNT 11.3 10^3/ul (4.5-11.0)
[2016-05-02 05:41] LABS: ALB/GLOB RATIO 0.9 (1.1-1.8); BILIRUBIN,TOTAL 0.6 mg/dL (0.2-1.3); CALCIUM 7.3 mg/dL (8.4-10.5); POTASSIUM 3.7 mmol/L (3.6-5.0)
[2016-05-02 05:43] LABS: INR 2.85 (0.93-1.08)
[2016-05-02] MEDS: Morphine 2 mg/ml ISec IVP PRN (06:10)
[2016-05-02 06:44] LABS: ADD MANUAL DIFF? NO
--- NOTE | 2016-05-02 08:35 | CP.PCM.PN ---
Subjective - Date & Time of Evaluation Date of Evaluation: 05/02/16 Time of Evaluation: 08:32 - Subjective Subjective: SURGERY NOTE FOR DR. HENAO 50M seen and examined at bedside. Patient denies shortness of breathe of difficult breathing. 100cc/24hrs sero montse, currently on waterseal. Objective - Vital Signs/Intake and Output Vital Signs (last 24 hours): Temp Pulse Resp BP Pulse Ox 98.4 F 60 19 101/61 98 05/02/16 05:04 05/02/16 05:48 05/02/16 05:04 05/02/16 05:04 05/02/16 05:04 Intake and Output: 05/02/16 05/02/16 06:59 18:59 Intake Total 360 Output Total 0 Balance 360 - Medications Medications: Current Medications Albuterol/Ipratropium (Duoneb 3 Mg/0.5 Mg (3 Ml) Ud) 3 ml IH [id number] PRN PRN Reason: Shortness of Breath Last Admin: 04/27/16 07:48 Dose: 3 ml Calcium Acetate (Phoslo) 667 mg PO WM [facility] Last Admin: 05/02/16 08:15 Dose: 667 mg Famotidine (Pepcid) 40 mg PO HS [facility] Last Admin: 05/01/16 22:02 Dose: 40 mg Furosemide (Lasix) 20 mg PO DAILY [facility] Last Admin: 05/01/16 09:10 Dose: 20 mg Hydrocortisone Sodium Succinate (Solu-Cortef) 25 mg IVP DAILY [facility] Argatroban 250 mg/ Dextrose 252.5 mls @ 2.43 mls/hr IV .Q24H [facility]; 0.5 MCG/KG/ MIN PRN Reason: Protocol Last Admin: 04/29/16 13:23 Dose: 2.43 mls/hr Lactulose (Enulose) 20 gm PO DAILY [facility] Last Admin: 05/01/16 09:06 Dose: 20 gm Lorazepam (Ativan) 2 mg IVP Q2H PRN; Protocol PRN Reason: Agitation Last Admin: 05/01/16 01:45 Dose: 2 mg Midodrine (Proamatine) 10 mg PO TID [facility] Last Admin: 05/01/16 17:21 Dose: 10 mg Nicotine (Nicoderm Cq) 1 patch TD DAILY [facility] Last Admin: 03/19/17 09:08 Dose: 1 patch Vancomycin HCl (Vancocin 25 Mg/Ml (Oral Use)) 125 mg PO QID [facility] PRN Reason: Protocol Last Admin: 05/01/16 22:02 Dose: 125 mg - Labs Labs: 05/02/16 05:16 05/02/16 05:16 PT 30.8 Seconds (9.9-11.8) H* 05/02/16 05:16 INR 2.85 (0.93-1.08) H 05/02/16 05:16 APTT 60.1 Seconds (23.7-30.8) H 04/28/16 08:20 - Constitutional Appears: Non-toxic, No Acute Distress - Head Exam Head Exam: ATRAUMATIC - Respiratory Exam Respiratory Exam: Clear to Ausculation Bilateral, NORMAL BREATHING PATTERN - Cardiovascular Exam Cardiovascular Exam: REGULAR RHYTHM, +S1, +S2 Additional comments: chest tube in place, dressing is CDI. - GI/Abdominal Exam GI & Abdominal Exam: Soft. absent: Distended, Firm, Guarding, Rigid, Tenderness - Neurological Exam Neurological Exam: Alert, Awake - Skin Skin Exam: Dry, Intact, Normal Color, Warm Assessment and Plan - Assessment and Plan (Free Text) Assessment: 50 y/o M with right loculated pleural effusion POD#11 s/p R side chest tube placement - D/C chest tube on today - CXR after removal - Dressing changes - Cont ICU management Further recs discuss with Dr. Sebastián Soto, PGY1
[2016-05-02] MEDS: Vancomycin 25 MG/ML PO SCH ×5 (09:13→21:58)
--- NOTE | 2016-05-02 09:47 | CP.PCM.PN ---
Subjective - Date & Time of Evaluation Date of Evaluation: 05/02/16 Time of Evaluation: 09:10 - Subjective Subjective: Comfortable on a chair but still has loose bowel movement (about 4 times yesterday). Afebrile overnight, no cough or SOB. Objective - Vital Signs/Intake and Output Vital Signs (last 24 hours): Temp Pulse Resp BP Pulse Ox 98.4 F 60 19 101/61 98 05/02/16 05:04 05/02/16 05:48 05/02/16 05:04 05/02/16 05:04 05/02/16 05:04 Intake and Output: 05/01/16 05/02/16 18:59 06:59 Intake Total 850 360 Output Total 0 0 Balance 850 360 - Medications Medications: Current Medications Albuterol/Ipratropium (Duoneb 3 Mg/0.5 Mg (3 Ml) Ud) 3 ml IH [id number] PRN PRN Reason: Shortness of Breath Last Admin: 04/27/16 07:48 Dose: 3 ml Calcium Acetate (Phoslo) 667 mg PO WM [facility] Last Admin: 05/01/16 16:34 Dose: 667 mg Famotidine (Pepcid) 40 mg PO HS [facility] Last Admin: 05/01/16 22:02 Dose: 40 mg Furosemide (Lasix) 20 mg PO DAILY [facility] Last Admin: 05/01/16 09:10 Dose: 20 mg Hydrocortisone Sodium Succinate (Solu-Cortef) 25 mg IVP DAILY [facility] Argatroban 250 mg/ Dextrose 252.5 mls @ 2.43 mls/hr IV .Q24H [facility]; 0.5 MCG/KG/ MIN PRN Reason: Protocol Last Admin: 04/29/16 13:23 Dose: 2.43 mls/hr Lactulose (Enulose) 20 gm PO DAILY [facility] Last Admin: 05/01/16 09:06 Dose: 20 gm Lorazepam (Ativan) 2 mg IVP Q2H PRN; Protocol PRN Reason: Agitation Last Admin: 05/01/16 01:45 Dose: 2 mg Midodrine (Proamatine) 10 mg PO TID [facility] Last Admin: 05/01/16 17:21 Dose: 10 mg Morphine Sulfate (Morphine) 2 mg IVP Q6H PRN PRN Reason: Pain, moderate (4-7) Last Admin: 05/02/16 06:10 Dose: 2 mg Nicotine (Nicoderm Cq) 1 patch TD DAILY [facility] Last Admin: 05/01/16 09:08 Dose: 1 patch Vancomycin HCl (Vancocin 25 Mg/Ml (Oral Use)) 125 mg PO QID [facility] PRN Reason: Protocol Last Admin: 05/01/16 22:02 Dose: 125 mg - Labs Labs: 05/02/16 05:16 05/02/16 05:16 PT 30.8 Seconds (9.9-11.8) H* 05/02/16 05:16 INR 2.85 (0.93-1.08) H 05/02/16 05:16 APTT 60.1 Seconds (23.7-30.8) H 04/28/16 08:20 - Constitutional Appears: Non-toxic, No Acute Distress - Head Exam Head Exam: NORMAL INSPECTION - ENT Exam ENT Exam: Mucous Membranes Moist - Neck Exam Neck Exam: absent: Lymphadenopathy, Meningismus - Respiratory Exam Respiratory Exam: Decreased Breath Sounds - Cardiovascular Exam Cardiovascular Exam: +S1, +S2 - GI/Abdominal Exam GI & Abdominal Exam: Soft. absent: Tenderness Assessment and Plan - Assessment and Plan (Free Text) Plan: Assessment S/P Septic shock with multiorgan dysfunction syndrome (MODS) with acute toxic- metabolic encephalopathy, chronic renal failure, hypoxic respiratory failure (S/ P ventilator-dependence) with probable right sided severe healthcare-associated pneumonia with Klebsiella (ESBL-producing, multidrug-resistant) with pleural effusion S/P chest tube placement POD #10 in a patient who possibly overdosed on heroin; patient has clinically improved and S/P treatment for pneumonia C. diff associated diarrhea, slowly improving CAD S/P CABG ESRD on HD history of lymphadenopathy Plan S/P Meropenem; continue PO Vancomycin (day 10) -since the patient still has diarrhea, will increase the dose to 500 mg q6 and give up to 14 days total (ie. 4 more days) and continue to observe will continue to monitor closely
--- NOTE | 2016-05-02 10:42 | CP.PCM.PN ---
<Leonel Pierre - Last Filed: 05/02/16 10:38> Subjective - Date & Time of Evaluation Date of Evaluation: 05/02/16 Time of Evaluation: 10:38 - Subjective Subjective: Pt seen and examined at bedside. Pt doing well overnight, no acute events. Pt states he is still having diarrhea, very loose bowel movements. Denies CP, SOB, N/V/D. Objective - Vital Signs/Intake and Output Vital Signs (last 24 hours): Temp Pulse Resp BP Pulse Ox 98.4 F 60 19 101/61 98 05/02/16 05:04 05/02/16 05:48 05/02/16 05:04 05/02/16 09:12 05/02/16 05:04 Intake and Output: 05/02/16 05/02/16 06:59 18:59 Intake Total 360 Output Total 0 Balance 360 - Medications Medications: Current Medications Albuterol/Ipratropium (Duoneb 3 Mg/0.5 Mg (3 Ml) Ud) 3 ml IH [id number] PRN PRN Reason: Shortness of Breath Last Admin: 04/27/16 07:48 Dose: 3 ml Calcium Acetate (Phoslo) 667 mg PO WM SIMON Last Admin: 05/02/16 08:15 Dose: 667 mg Famotidine (Pepcid) 40 mg PO HS SIMON Last Admin: 05/01/16 22:02 Dose: 40 mg Furosemide (Lasix) 20 mg PO DAILY [facility] Last Admin: 05/02/16 09:12 Dose: 20 mg Hydrocortisone Sodium Succinate (Solu-Cortef) 25 mg IVP DAILY [facility] Last Admin: 05/02/16 09:13 Dose: 25 mg Argatroban 250 mg/ Dextrose 252.5 mls @ 2.43 mls/hr IV .Q24H SIMON; 0.5 MCG/KG/ MIN PRN Reason: Protocol Last Admin: 04/29/16 13:23 Dose: 2.43 mls/hr Lactulose (Enulose) 20 gm PO DAILY [facility] Last Admin: 05/02/16 09:12 Dose: 20 gm Lorazepam (Ativan) 2 mg IVP Q2H PRN; Protocol PRN Reason: Agitation Last Admin: 05/01/16 01:45 Dose: 2 mg Midodrine (Proamatine) 10 mg PO TID [facility] Last Admin: 05/02/16 09:13 Dose: 10 mg Nicotine (Nicoderm Cq) 1 patch TD DAILY [facility] Last Admin: 05/02/16 09:12 Dose: 1 patch Vancomycin HCl (Vancocin 25 Mg/Ml (Oral Use)) 500 mg PO QID [facility] PRN Reason: Protocol Stop: 05/06/16 10:01 - Labs Labs: 05/02/16 05:16 05/02/16 05:16 PT 30.8 Seconds (9.9-11.8) H* 05/02/16 05:16 INR 2.85 (0.93-1.08) H 05/02/16 05:16 APTT 60.1 Seconds (23.7-30.8) H 04/28/16 08:20 - Constitutional Appears: Well, No Acute Distress - Head Exam Head Exam: ATRAUMATIC, NORMAL INSPECTION, NORMOCEPHALIC - ENT Exam ENT Exam: Mucous Membranes Moist, Normal Exam - Respiratory Exam Respiratory Exam: Clear to Ausculation Bilateral, NORMAL BREATHING PATTERN. absent: Rhonchi, Wheezes - Cardiovascular Exam Cardiovascular Exam: RRR, +S1, +S2 - GI/Abdominal Exam GI & Abdominal Exam: Distended, Soft, Normal Bowel Sounds. absent: Guarding, Tenderness - Extremities Exam Extremities Exam: absent: Calf Tenderness, Pedal Edema Additional comments: Left upper extremity edema secondary to venous clot. - Neurological Exam Neurological Exam: Alert, Awake, Oriented x3 - Psychiatric Exam Psychiatric exam: Normal Affect, Normal Mood - Skin Skin Exam: Intact, Normal Color, Warm Assessment and Plan - Assessment and Plan (Free Text) Plan: 50 y/o male with PMH of ESRD on HD (T,,S) cirrhosis, hep C, alcohol abuse, and polysubstance abuse with cocaine and heroin use presented with hypoxemic respiratory failure and septic shock secondary to klebsiella pneumonia and SBP. Argatroban on hold today along with coumadin. Coumadin held for possible paracentesis. Pt will also be reevaluated by GI for increasing ascites. Neuro - AAO x3 at this time. - Continue lactulose for possible hepatic encephalopathy Cardio - INR subtherapeutic at this time, will hold coumadin for possible procedure - Continue Midodrine - BP stable - echo: EF of 50% with severe pulmonary HTN and bioprosthesis valve - cardiology following Pulm - CTA demonstrated no PE - B/l pleural effusions, resolving. Abx stopped - Right sided chest tube on suction without air leak. Output: 0 cc of serosanganous fluid overnight - Chest tube removed today by surgery - aspiration precaution, HOB >35 - surgery following GI - lactulose for empiric treatment for hepatic encephalopathy - Ascites increasing, will consider albumin vs paracentesis - Will await GI recs - Abdominal US shows large amount of ascites - protonix ppx Renal - ESRD on HD T,T,S - Maintain euvolemia - Replenish electrolytes as needed endo - fingerstick q6h - cont to monitor glucose ID - Afebrile, no leukocytosis - Will taper steroids - septic shock 2/2 aspiration PNA, (+) Klebsiella pna - C Diff Ag positive, continue vancomycin for 4 more days - Vancomycin changed to 500 mg QID - Abx stopped after 8 day course - ID following, Dr. Millard Seen, reviewed, and discussed with attending Gabby, PGY-1 <Rich RILEY,Luis - Last Filed: 05/02/16 14:23> Objective - Vital Signs/Intake and Output Vital Signs (last 24 hours): Temp Pulse Resp BP Pulse Ox 98.4 F 59 L 12 101/61 98 05/02/16 05:04 05/02/16 10:00 05/02/16 10:00 05/02/16 09:12 05/02/16 05:04 Intake and Output: 05/02/16 05/02/16 06:59 18:59 Intake Total 360 Output Total 0 Balance 360 - Medications Medications: Current Medications Albuterol/Ipratropium (Duoneb 3 Mg/0.5 Mg (3 Ml) Ud) 3 ml IH [id number] PRN PRN Reason: Shortness of Breath Last Admin: 04/27/16 07:48 Dose: 3 ml Calcium Acetate (Phoslo) 667 mg PO WM [facility] Last Admin: 05/02/16 11:24 Dose: 667 mg Famotidine (Pepcid) 40 mg PO HS [facility] Last Admin: 05/01/16 22:02 Dose: 40 mg Furosemide (Lasix) 20 mg PO DAILY [facility] Last Admin: 05/02/16 09:12 Dose: 20 mg Hydrocortisone Sodium Succinate (Solu-Cortef) 25 mg IVP DAILY [facility] Last Admin: 05/02/16 09:13 Dose: 25 mg Argatroban 250 mg/ Dextrose 252.5 mls @ 2.43 mls/hr IV .Q24H [facility]ON; 0.5 MCG/KG/ MIN PRN Reason: Protocol Last Admin: 04/29/16 13:23 Dose: 2.43 mls/hr Lactulose (Enulose) 20 gm PO DAILY [facility] Last Admin: 05/02/16 09:12 Dose: 20 gm Lorazepam (Ativan) 2 mg IVP Q2H PRN; Protocol PRN Reason: Agitation Last Admin: 05/01/16 01:45 Dose: 2 mg Midodrine (Proamatine) 10 mg PO TID [facility] Last Admin: 05/02/16 09:13 Dose: 10 mg Nicotine (Nicoderm Cq) 1 patch TD DAILY [facility] Last Admin: 05/02/16 09:12 Dose: 1 patch Vancomycin HCl (Vancocin 25 Mg/Ml (Oral Use)) 500 mg PO QID [facility] PRN Reason: Protocol Stop: 05/06/16 10:01 Last Admin: 05/02/16 11:24 Dose: Not Given - Labs Labs: 05/02/16 05:16 05/02/16 05:16 PT 30.8 Seconds (9.9-11.8) H* 05/02/16 05:16 INR 2.85 (0.93-1.08) H 05/02/16 05:16 APTT 60.1 Seconds (23.7-30.8) H 04/28/16 08:20 Attending/Attestation - Attestation I have personally seen and examined this patient.: Yes I have fully participated in the care of the patient.: Yes I have reviewed all pertinent clinical information, including history, physical exam and plan: Yes Notes (Text): Patient was seen and examined with biomedical engineering internship .Agreed with resident assessment and plan. 50 year old male with past medical history of CAD s/p CABG, alcohol abuse, substance abuse, chronic liver disease and ESRD who presented with altered mental status, sepsis and hypoxic respiratory failure s/p intubation. He was later extubated and is now on nasal cannula oxygen. His mental status has improved to baseline.He is s/p IV meropenem therapy for pneumonia. Sputum culture grew klebsiella. He had chest tube for right sided pleural effusion which was removed by Surgery today.Patient is still having diarrhea, has 8 stools yesterday.ID has increased dose of vancomycin 500 mg PO Q 6 hr We will get Physical therapy evaluation. Management plan was discussed in detail with patient Education was provided.
--- NOTE | 2016-05-02 15:18 | RAD ---
HISTORY: re-evaluate pleural effusion COMPARISON: 05/01/2016 FINDINGS: LUNGS: Resolved left basilar opacity. No pulmonary infiltrate. PLEURA: Right chest tube unchanged. No pneumothorax seen. No pleural effusion. CARDIOVASCULAR: Mitral valvular prosthesis. Sternotomy wires. Left brachiocephalic and upper extremity vascular stent. Central venous dialysis catheter. OSSEOUS STRUCTURES: No significant abnormalities. VISUALIZED UPPER ABDOMEN: Normal. OTHER FINDINGS: None. IMPRESSION: Right chest tube. No pneumothorax. No left basilar opacity seen. Otherwise no significant change.
--- NOTE | 2016-05-02 15:19 | RAD ---
HISTORY: Chest tube pull COMPARISON: 05/02/2016 at 5:27 a.m. FINDINGS: LUNGS: No infiltrate. PLEURA: Status post removal of right chest tube. No pneumothorax seen. CARDIOVASCULAR: Left brachiocephalic/upper extremity vascular stent. Central venous dialysis catheter. Mitral valvular prosthesis. OSSEOUS STRUCTURES: No significant abnormalities. VISUALIZED UPPER ABDOMEN: Normal. OTHER FINDINGS: None. IMPRESSION: Removal of right chest tube. No pneumothorax seen.
[2016-05-02 19:39] LABS: UFH SRA RESULT Negative (Negative)
--- NOTE | 2016-05-02 23:47 | PN ---
DATE: 05/02/2016 SUBJECTIVE: The patient was seen in the intensive care unit. When I saw him, he was requesting morp titus. The right-sided chest tube has been removed. He does not appear to be in any pain or distress . OBJECTIVE: VITAL SIGNS: Blood pressure is 101/61, heart rate 59, respiratory rate is 11, temperature is 97.7, h e has been afebrile for 48 hours, oxygen saturation is 98% on 2L via nasal cannula. HEENT: The patient was normocephalic and atraumatic. He did appear to be chronically ill. There was no jugular venous distention that I could appreciate. CHEST: Lungs paez were clear to auscultation, but he was not cooperative with deep breaths. CARDIAC: Had a regular rate and rhythm without any rubs or gallops. ABDOMEN: Soft, distended with ascites, but nontender. There was no rebound, guarding, or rigidity. EXTREMITIES: Had 1+ sacral edema. NEUROLOGIC: He was awake and alert. VASCULAR: He vascular. SKIN: Notable for right IJ PermCath. LABORATORY STUDIES: White count is 11.3, H and H 9.8 and 30.7 with a platelet count of 112,000. The re are 79% neutrophils, 8% lymphocytes, 10% monocytes, 3% eosinophils. Sodium is 135, potassium is 3 .7, chloride is 103, bicarbonate 22, BUN and creatinine is 82 and 5.8, with glucose 100. Calcium is 7 but corrects to 8.9, since the albumin is 1.9. Chest x-ray from today revealed no pneumothorax fo llowing removal of his chest tube. There is no new microbiology data to report. IMPRESSION AND PLAN: The patient is a 50-year-old gentleman with a known history of hepatitis C, alc ohol abuse, cirrhosis, history of intravenous heroin and cocaine use, end-stage renal disease on hemo dialysis every Monday, , Monday at [facility], via right internal jugular PermCath. Admitted after being found lethargic and surrounded by 30 bags of heroin. He received 2 bags of Na rcan in the ED, which caused him to become more alert. Over the course of the hospitalization, he angeles d septic shock, secondary to aspiration pneumonia, which was present on admission. He is currently o ff all pressors. Of note, echo has revealed severe pulmonary hypertension. He was also noted to hav e left internal jugular vein thrombosis as well. 1. The patient is for hemodialysis tomorrow and we will maintain his Monday, , Monday outp atient schedule Upon discharge, he is to return [place] [facility] [place] 2. Infectious disease followup is appreciated and the patient has completed a course of meropenem for aspiration pneumonia. He is on day #10 of vancomycin, but continues to have diarrhea and so the dos e of the oral vancomycin was increased to 500 mg orally every 6 hours and he will have an additional 4 days of treatment for 14 days total. 3. Upon discharge, patient is to go to subacute rehabilitation. Hopefully, there he can receive venita e counseling so he does not experience a relapse, with respect to his heroin and cocaine abuse. 4. Empiric treatment of hepatic encephalopathy. He remains on lactulose and he may undergo repeat erapeutic paracentesis prior to eventual transfer out. 5. Since the patient is off of all steroids, continue to taper hydrocortisone until off. 6. To help maintain blood pressure in this chronically hypotensive patient, arising from cirrhosis. Continue midodrine 10 mg orally 3 times a day. 7. The patient's next hemodialysis session will be tomorrow. Jose Gonzalez MD cc: [id number] TT: 05/02/2016 23:46:37 Confirmation # [id number] Dictation # [id number]
[2016-05-03 06:35] LABS: HEMATOCRIT 33.6 % (42.0-52.0); MEAN CELL VOLUME 90.8 fL (80.0-105.0); MEAN CORPUSCULAR HEMOGLOBIN 29.7 pg (25.0-35.0); MEAN CORPUSCULAR HGB CONC 32.7 g/dl (31.0-37.0); PLATELET COUNT 114 10^3/uL (120.0-450.0); RED CELL DISTRIBUTION WIDTH 15.9 % (11.5-14.5); WHITE BLOOD COUNT 10.8 10^3/ul (4.5-11.0)
[2016-05-03 06:38] LABS: ADD MANUAL DIFF? YES
[2016-05-03 06:43] LABS: INR 2.12 (0.93-1.08)
--- NOTE | 2016-05-03 07:23 | CP.PCM.PN ---
Subjective - Date & Time of Evaluation Date of Evaluation: 05/03/16 Time of Evaluation: 07:19 - Subjective Subjective: PROGRESS NOTE FOR SURGERY DR. HENAO Pt is seen and examined at bedside. Chest tube removed yesterday. Denies having any SOB, CP. Patient continues to c/o B/L LE pain. Is tolerating diet. Denies having any N/V, fevers or chills. Objective - Vital Signs/Intake and Output Vital Signs (last 24 hours): Temp Pulse Resp BP Pulse Ox 97.5 F L 60 84 H 101/61 98 05/03/16 00:01 05/03/16 02:00 05/03/16 02:06 05/02/16 09:12 05/02/16 05:04 - Medications Medications: Current Medications Albuterol/Ipratropium (Duoneb 3 Mg/0.5 Mg (3 Ml) Ud) 3 ml IH [id number] PRN PRN Reason: Shortness of Breath Last Admin: 04/27/16 07:48 Dose: 3 ml Calcium Acetate (Phoslo) 667 mg PO WM SIMON Last Admin: 05/02/16 18:23 Dose: 667 mg Famotidine (Pepcid) 40 mg PO HS [facility] Last Admin: 05/02/16 21:04 Dose: 40 mg Furosemide (Lasix) 20 mg PO DAILY [facility] Last Admin: 05/02/16 09:12 Dose: 20 mg Hydrocortisone Sodium Succinate (Solu-Cortef) 25 mg IVP DAILY [facility] Last Admin: 05/02/16 09:13 Dose: 25 mg Argatroban 250 mg/ Dextrose 252.5 mls @ 2.43 mls/hr IV .Q24H SIMON; 0.5 MCG/KG/ MIN PRN Reason: Protocol Last Admin: 04/29/16 13:23 Dose: 2.43 mls/hr Lactulose (Enulose) 20 gm PO DAILY [facility] Last Admin: 05/02/16 09:12 Dose: 20 gm Lorazepam (Ativan) 2 mg IVP Q2H PRN; Protocol PRN Reason: Agitation Last Admin: 05/02/16 21:05 Dose: 2 mg Midodrine (Proamatine) 10 mg PO TID [facility] Last Admin: 05/02/16 18:23 Dose: 10 mg Nicotine (Nicoderm Cq) 1 patch TD DAILY [facility] Last Admin: 05/02/16 09:12 Dose: 1 patch Vancomycin HCl (Vancocin 25 Mg/Ml (Oral Use)) 500 mg PO QID [facility] PRN Reason: Protocol Stop: 05/06/16 10:01 Last Admin: 05/02/16 21:58 Dose: 500 mg - Labs Labs: 05/03/16 06:20 05/02/16 05:16 PT 22.9 Seconds (9.9-11.8) H 05/03/16 06:20 INR 2.12 (0.93-1.08) H 05/03/16 06:20 APTT 60.1 Seconds (23.7-30.8) H 04/28/16 08:20 - Constitutional Appears: Non-toxic, No Acute Distress - Head Exam Head Exam: ATRAUMATIC - ENT Exam ENT Exam: Mucous Membranes Moist - Respiratory Exam Respiratory Exam: absent: Accessory Muscle Use, Respiratory Distress Additional comments: dressing on previous site of CP in place - GI/Abdominal Exam GI & Abdominal Exam: Soft. absent: Distended, Firm, Tenderness - Neurological Exam Neurological Exam: Alert, Awake, Oriented x3 - Psychiatric Exam Psychiatric exam: Normal Affect, Normal Mood - Skin Skin Exam: Dry, Intact, Normal Color, Warm Assessment and Plan - Assessment and Plan (Free Text) Assessment: 50 y/o M is s/p right sided chest tube removal yesterday. - Dressing in place at site of previous chest tube. Will change dressing tomorrow. - CXR after removal was negative for pneumothorax - Cont ICU management Further recs discuss with Dr. Sebastián Mcwilliams, PGY1
[2016-05-03 08:19] LABS: ATYPICAL LYMPHOCYTE 1 % (0.0-0.0); EOSINOPHIL 2 % (0.0-3.0); NEUTROPHIL 81 % (50.0-70.0)
[2016-05-03 08:20] LABS: PLATELET ESTIMATE SL. DEC (NORMAL)
[2016-05-03 08:21] LABS: ANISOCYTOSIS 1+; GIANT PLATELETS PRESENT; HYPOCHROMIA 1+; OVALOCYTES SLIGHT
[2016-05-03 08:45] LABS: BILIRUBIN,TOTAL 0.6 mg/dL (0.2-1.3); CALCIUM 7.5 mg/dL (8.4-10.5); POTASSIUM 4.5 mmol/L (3.6-5.0); TOTAL PROTEIN 4.4 g/dL (5.8-8.3)
[2016-05-03] MEDS: Vancomycin 25 MG/ML PO SCH ×4 (11:29→23:22)
--- NOTE | 2016-05-03 11:45 | CP.PCM.PN ---
<Karan Martinez - Last Filed: 05/03/16 13:21> Subjective - Date & Time of Evaluation Date of Evaluation: 05/03/16 Time of Evaluation: 09:00 - Subjective Subjective: PGY4 GI Fellow Progress Note Reconsulted by primary service with concern for re-accumulation of ascites. The patient was seen and examined bedside this morning during HD session. He admits to abdominal distention but denies any abdominal pain. Passing 3 stool per day. More confused today, with some difficulty naming Hospital location. C/O B/L leg pain. 12 system ROS performed and negative except where stated. Objective - Vital Signs/Intake and Output Vital Signs (last 24 hours): Temp Pulse Resp BP Pulse Ox 97.5 F L 99 H 32 H 98/62 L 98 05/03/16 06:00 05/03/16 07:54 05/03/16 07:40 05/03/16 11:27 05/02/16 05:04 Intake and Output: 05/03/16 05/03/16 06:59 18:59 Intake Total 360 Balance 360 - Medications Medications: Current Medications Albuterol/Ipratropium (Duoneb 3 Mg/0.5 Mg (3 Ml) Ud) 3 ml IH [id number] PRN PRN Reason: Shortness of Breath Last Admin: 04/27/16 07:48 Dose: 3 ml Calcium Acetate (Phoslo) 667 mg PO WM SIMON Last Admin: 05/03/16 08:25 Dose: 667 mg Famotidine (Pepcid) 40 mg PO HS [facility] Last Admin: 05/02/16 21:04 Dose: 40 mg Furosemide (Lasix) 20 mg PO DAILY [facility] Last Admin: 05/03/16 11:27 Dose: 20 mg Hydrocortisone Sodium Succinate (Solu-Cortef) 12.5 mg IVP DAILY [facility] Last Admin: 05/03/16 11:29 Dose: 12.5 mg Argatroban 250 mg/ Dextrose 252.5 mls @ 2.43 mls/hr IV .Q24H [facility]ON; 0.5 MCG/KG/ MIN PRN Reason: Protocol Last Admin: 04/29/16 13:23 Dose: 2.43 mls/hr Lactulose (Enulose) 20 gm PO DAILY [facility] Last Admin: 05/03/16 11:27 Dose: 20 gm Lorazepam (Ativan) 1 mg IVP Q2H PRN; Protocol PRN Reason: Agitation Midodrine (Proamatine) 10 mg PO TID [facility] Last Admin: 05/03/16 11:28 Dose: 10 mg Nicotine (Nicoderm Cq) 1 patch TD DAILY [facility] Last Admin: 05/03/16 11:31 Dose: 1 patch Vancomycin HCl (Vancocin 25 Mg/Ml (Oral Use)) 500 mg PO QID [facility] PRN Reason: Protocol Stop: 05/06/16 10:01 Last Admin: 05/03/16 11:29 Dose: 500 mg - Labs Labs: 05/03/16 06:20 05/03/16 06:40 PT 22.9 Seconds (9.9-11.8) H 05/03/16 06:20 INR 2.12 (0.93-1.08) H 05/03/16 06:20 APTT 60.1 Seconds (23.7-30.8) H 04/28/16 08:20 - Constitutional Appears: Non-toxic, No Acute Distress - Eye Exam Eye Exam: EOMI, PERRL - ENT Exam ENT Exam: Mucous Membranes Dry - Respiratory Exam Respiratory Exam: Clear to Ausculation Bilateral. absent: Rales, Rhonchi, Wheezes - Cardiovascular Exam Cardiovascular Exam: RRR, +S1, +S2 - GI/Abdominal Exam GI & Abdominal Exam: Distended, Soft, Normal Bowel Sounds. absent: Firm, Guarding, Rigid, Tenderness, Organomegaly - Extremities Exam Extremities Exam: absent: Pedal Edema Additional comments: B/L LE discoloration - Neurological Exam Neurological Exam: Alert, Awake. absent: Oriented x3 - Psychiatric Exam Psychiatric exam: Normal Affect, Normal Mood - Skin Skin Exam: Dry, Warm Assessment and Plan - Assessment and Plan (Free Text) Assessment: 50yo male with history of CAD s/p CABG, chronic Hepatitis C, ESRD on hemodialysis (T/R/Sa), polysubstance abuse admitted to ICU with altered mental status. Currently in septic shock with multiple infectious etiologies. -HCV decompensated cirrhosis with ascites -Spontaneous bacterial peritonitis, s/p IV antibiotic and albumin therapy -Pneumonia, Klebsiella ESBL, resolving -C diff infection, resolved -Left internal jugular vein DVT -ESRD on hemodialysis -CAD/CABG -Polysubstance abuse Plan: -Given abdominal distention, would request IR evaluation for repeat diagnostic/ therapeutic paracentesis -If patient can tolerate, he would benefit from diuretic therapy but given his need for midodrine, this is unlikely -Send fluid for cell count/culture -Will sign off. Please reconsult if needed. <Ezekiel Quiroz - Last Filed: 05/03/16 21:06> Objective - Vital Signs/Intake and Output Vital Signs (last 24 hours): Temp Pulse Resp BP Pulse Ox 97.9 F 69 20 98/62 L 94 L 05/03/16 16:24 05/03/16 16:24 05/03/16 16:24 05/03/16 11:27 05/03/16 16:24 - Medications Medications: Current Medications Albuterol/Ipratropium (Duoneb 3 Mg/0.5 Mg (3 Ml) Ud) 3 ml IH [id number] PRN PRN Reason: Shortness of Breath Last Admin: 04/27/16 07:48 Dose: 3 ml Calcium Acetate (Phoslo) 667 mg PO WM [facility] Last Admin: 05/03/16 17:12 Dose: 667 mg Famotidine (Pepcid) 40 mg PO HS [facility] Last Admin: 05/02/16 21:04 Dose: 40 mg Hydrocortisone Sodium Succinate (Solu-Cortef) 12.5 mg IVP DAILY [facility] Last Admin: 05/03/16 11:29 Dose: 12.5 mg Argatroban 250 mg/ Dextrose 252.5 mls @ 2.43 mls/hr IV .Q24H SIMON; 0.5 MCG/KG/ MIN PRN Reason: Protocol Last Admin: 04/29/16 13:23 Dose: 2.43 mls/hr Lactulose (Enulose) 20 gm PO DAILY [facility] Last Admin: 05/03/16 11:27 Dose: 20 gm Lorazepam (Ativan) 1 mg IVP Q2H PRN; Protocol PRN Reason: Agitation Midodrine (Proamatine) 10 mg PO TID [facility] Last Admin: 05/03/16 17:52 Dose: 10 mg Nicotine (Nicoderm Cq) 1 patch TD DAILY [facility] Last Admin: 05/03/16 11:31 Dose: 1 patch Vancomycin HCl (Vancocin 25 Mg/Ml (Oral Use)) 500 mg PO QID [facility] PRN Reason: Protocol Stop: 05/06/16 10:01 Last Admin: 05/03/16 17:53 Dose: 500 mg - Labs Labs: 05/03/16 06:20 05/03/16 06:40 PT 22.9 Seconds (9.9-11.8) H 05/03/16 06:20 INR 2.12 (0.93-1.08) H 05/03/16 06:20 APTT 60.1 Seconds (23.7-30.8) H 04/28/16 08:20 Attending/Attestation - Attestation I have personally seen and examined this patient.: Yes I have fully participated in the care of the patient.: Yes I have reviewed all pertinent clinical information, including history, physical exam and plan: Yes Notes (Text): 05/03/16 21:02 50 year old male with h/o CAD s/p CABG, HCV, ESRD on HD, polysubstance abuse admitted to ICU with altered mental status, sepsis, C. diff, pneumona, SBP, and ascites. 1. Hepatitis C Cirrhosis 2. Ascites 3. SBP Plan: -Recommend repeat US guided paracentesis -he will likely need frequent paracentesis considering he has renal failure and can not take diuretics -replace albumin 8 g per liter removed -send fluid for cell count, diff, culture -low sodium diet < 2 g per day -s/p course of antibiotics for SBP and albumin -recommend bactrim DS 1 tab three times per week after HD on //Mon for lifelong SBP prophylaxis -will sign off at this time
--- NOTE | 2016-05-03 12:04 | CP.PCM.PN ---
Subjective - Date & Time of Evaluation Date of Evaluation: 05/03/16 Time of Evaluation: 08:20 - Subjective Subjective: Comfortable in bed, eating his breakfast well, no fevers overnight, no nausea, no SOB or cough. Stools are now soft and not watery anymore. Objective - Vital Signs/Intake and Output Vital Signs (last 24 hours): Temp Pulse Resp BP Pulse Ox 97.5 F L 99 H 32 H 98/62 L 98 05/03/16 06:00 05/03/16 07:54 05/03/16 07:40 05/03/16 11:27 05/02/16 05:04 Intake and Output: 05/03/16 05/03/16 06:59 18:59 Intake Total 360 Balance 360 - Medications Medications: Current Medications Albuterol/Ipratropium (Duoneb 3 Mg/0.5 Mg (3 Ml) Ud) 3 ml IH [id number] PRN PRN Reason: Shortness of Breath Last Admin: 04/27/16 07:48 Dose: 3 ml Calcium Acetate (Phoslo) 667 mg PO WM SIMON Last Admin: 05/03/16 08:25 Dose: 667 mg Famotidine (Pepcid) 40 mg PO HS SIMON Last Admin: 05/02/16 21:04 Dose: 40 mg Furosemide (Lasix) 20 mg PO DAILY [facility]ON Last Admin: 05/03/16 11:27 Dose: 20 mg Hydrocortisone Sodium Succinate (Solu-Cortef) 12.5 mg IVP DAILY [facility]ON Last Admin: 05/03/16 11:29 Dose: 12.5 mg Argatroban 250 mg/ Dextrose 252.5 mls @ 2.43 mls/hr IV .Q24H SIMON; 0.5 MCG/KG/ MIN PRN Reason: Protocol Last Admin: 04/29/16 13:23 Dose: 2.43 mls/hr Lactulose (Enulose) 20 gm PO DAILY SIMON Last Admin: 05/03/16 11:27 Dose: 20 gm Lorazepam (Ativan) 1 mg IVP Q2H PRN; Protocol PRN Reason: Agitation Midodrine (Proamatine) 10 mg PO TID SIMON Last Admin: 05/03/16 11:28 Dose: 10 mg Nicotine (Nicoderm Cq) 1 patch TD DAILY SIMON Last Admin: 05/03/16 11:31 Dose: 1 patch Vancomycin HCl (Vancocin 25 Mg/Ml (Oral Use)) 500 mg PO QID SIMON PRN Reason: Protocol Stop: 05/06/16 10:01 Last Admin: 05/03/16 11:29 Dose: 500 mg - Labs Labs: 05/03/16 06:20 05/03/16 06:40 PT 22.9 Seconds (9.9-11.8) H 05/03/16 06:20 INR 2.12 (0.93-1.08) H 05/03/16 06:20 APTT 60.1 Seconds (23.7-30.8) H 04/28/16 08:20 - Constitutional Appears: Non-toxic, No Acute Distress - Head Exam Head Exam: NORMAL INSPECTION - Neck Exam Neck Exam: absent: Lymphadenopathy, Meningismus - Respiratory Exam Respiratory Exam: Decreased Breath Sounds Additional comments: chest tube on the right side has been removed - Cardiovascular Exam Cardiovascular Exam: +S1, +S2 - GI/Abdominal Exam GI & Abdominal Exam: Soft. absent: Tenderness - Extremities Exam Additional comments: both femoral lines have been removed Assessment and Plan - Assessment and Plan (Free Text) Plan: Assessment S/P Septic shock with multiorgan dysfunction syndrome (MODS) with acute toxic- metabolic encephalopathy, chronic renal failure, hypoxic respiratory failure (S/ P ventilator-dependence) with probable right sided severe healthcare-associated pneumonia with Klebsiella (ESBL-producing, multidrug-resistant) with pleural effusion S/P chest tube placement POD #11 in a patient who possibly overdosed on heroin (now the chest tube has been removed); patient has clinically improved and S/P treatment for pneumonia C. diff associated diarrhea, slowly improving CAD S/P CABG ESRD on HD history of lymphadenopathy Plan S/P Meropenem; continue PO Vancomycin (day 11) - patient is improving with the increased dose of 500 mg q6 and will give up to 14 days total (ie. 3 more days) and will continue to observe Femoral lines have been removed and this will decrease his risk for other infections
--- NOTE | 2016-05-03 12:39 | CP.PCM.PN ---
<Leonel Pierre - Last Filed: 05/03/16 12:35> Subjective - Date & Time of Evaluation Date of Evaluation: 05/03/16 Time of Evaluation: 12:35 - Subjective Subjective: Pt seen and examined at bedside. Pt doing well overnight, with no complaints of agitation overnight. Pt is 1:1. Pt states he had 3 bowel movements overnight and they are more formed than previous days. Denies CP, SOB, nausea, vomiting, fever. Objective - Vital Signs/Intake and Output Vital Signs (last 24 hours): Temp Pulse Resp BP Pulse Ox 97.5 F L 99 H 32 H 98/62 L 98 05/03/16 06:00 05/03/16 07:54 05/03/16 07:40 05/03/16 11:27 05/02/16 05:04 Intake and Output: 05/03/16 05/03/16 06:59 18:59 Intake Total 360 Balance 360 - Medications Medications: Current Medications Albuterol/Ipratropium (Duoneb 3 Mg/0.5 Mg (3 Ml) Ud) 3 ml IH [id number] PRN PRN Reason: Shortness of Breath Last Admin: 04/27/16 07:48 Dose: 3 ml Calcium Acetate (Phoslo) 667 mg PO WM SIMON Last Admin: 05/03/16 08:25 Dose: 667 mg Famotidine (Pepcid) 40 mg PO HS SIMON Last Admin: 05/02/16 21:04 Dose: 40 mg Furosemide (Lasix) 20 mg PO DAILY SIMON Last Admin: 05/03/16 11:27 Dose: 20 mg Hydrocortisone Sodium Succinate (Solu-Cortef) 12.5 mg IVP DAILY SIMON Last Admin: 05/03/16 11:29 Dose: 12.5 mg Argatroban 250 mg/ Dextrose 252.5 mls @ 2.43 mls/hr IV .Q24H SIMON; 0.5 MCG/KG/ MIN PRN Reason: Protocol Last Admin: 04/29/16 13:23 Dose: 2.43 mls/hr Lactulose (Enulose) 20 gm PO DAILY SIMON Last Admin: 05/03/16 11:27 Dose: 20 gm Lorazepam (Ativan) 1 mg IVP Q2H PRN; Protocol PRN Reason: Agitation Midodrine (Proamatine) 10 mg PO TID SIMON Last Admin: 05/03/16 11:28 Dose: 10 mg Nicotine (Nicoderm Cq) 1 patch TD DAILY [facility] Last Admin: 05/03/16 11:31 Dose: 1 patch Vancomycin HCl (Vancocin 25 Mg/Ml (Oral Use)) 500 mg PO QID [facility] PRN Reason: Protocol Stop: 05/06/16 10:01 Last Admin: 05/03/16 11:29 Dose: 500 mg - Labs Labs: 05/03/16 06:20 05/03/16 06:40 PT 22.9 Seconds (9.9-11.8) H 05/03/16 06:20 INR 2.12 (0.93-1.08) H 05/03/16 06:20 APTT 60.1 Seconds (23.7-30.8) H 04/28/16 08:20 - Constitutional Appears: Well, No Acute Distress - Head Exam Head Exam: ATRAUMATIC, NORMAL INSPECTION, NORMOCEPHALIC - ENT Exam ENT Exam: Mucous Membranes Moist, Normal Exam - Respiratory Exam Respiratory Exam: Clear to Ausculation Bilateral, NORMAL BREATHING PATTERN. absent: Rhonchi, Wheezes - Cardiovascular Exam Cardiovascular Exam: RRR, +S1, +S2 - GI/Abdominal Exam GI & Abdominal Exam: Distended, Soft, Normal Bowel Sounds. absent: Guarding, Tenderness - Extremities Exam Extremities Exam: absent: Calf Tenderness, Pedal Edema Additional comments: Left upper extremity edema - Neurological Exam Neurological Exam: Alert, Awake, Oriented x3 - Psychiatric Exam Psychiatric exam: Normal Affect, Normal Mood - Skin Skin Exam: Intact, Normal Color, Warm Assessment and Plan - Assessment and Plan (Free Text) Plan: 50 y/o male with PMH of ESRD on HD (T,TH,S) cirrhosis, hep C, alcohol abuse, and polysubstance abuse with cocaine and heroin use presented with hypoxemic respiratory failure and septic shock secondary to klebsiella pneumonia and SBP. Argatroban on hold today along with coumadin. Coumadin held for possible paracentesis. Pt will also be reevaluated by GI for increasing ascites. GI recommends paracentesis. IR consulted. Pt will be transferred to med-surg today. Pt undergoing dialysis today. Neuro - AAO x3 at this time. - Continue lactulose for possible hepatic encephalopathy Cardio - INR subtherapeutic at this time, will hold coumadin for possible procedure - Continue Midodrine - BP stable - echo: EF of 50% with severe pulmonary HTN and bioprosthesis valve - cardiology following Pulm - CTA demonstrated no PE - B/l pleural effusions, resolving. Abx stopped - Chest tube removed - aspiration precaution, HOB >35 - surgery following GI - lactulose for empiric treatment for hepatic encephalopathy - Ascites increasing, will consider albumin vs paracentesis - GI recommends paracentesis by IR - Abdominal US shows large amount of ascites - protonix ppx Renal - ESRD on HD T,T,S - Maintain euvolemia - Replenish electrolytes as needed endo - fingerstick q6h - cont to monitor glucose ID - Afebrile, no leukocytosis - Will continue to taper steroids - septic shock 2/2 aspiration PNA, (+) Klebsiella pna - C Diff Ag positive, continue vancomycin for 3 more days - Vancomycin changed to 500 mg QID - Abx stopped after 8 day course - ID following, Dr. Millard Seen, reviewed, and discussed with attending Gabby, PGY-1 <Rich RILEY,Kellyshanikojuice - Last Filed: 05/03/16 16:10> Objective - Vital Signs/Intake and Output Vital Signs (last 24 hours): Temp Pulse Resp BP Pulse Ox 97.5 F L 99 H 32 H 98/62 L 98 05/03/16 06:00 05/03/16 07:54 05/03/16 07:40 05/03/16 11:27 05/02/16 05:04 Intake and Output: 05/03/16 05/03/16 06:59 18:59 Intake Total 360 Balance 360 - Medications Medications: Current Medications Albuterol/Ipratropium (Duoneb 3 Mg/0.5 Mg (3 Ml) Ud) 3 ml IH [id number] PRN PRN Reason: Shortness of Breath Last Admin: 04/27/16 07:48 Dose: 3 ml Calcium Acetate (Phoslo) 667 mg PO WM SIMON Last Admin: 05/03/16 14:56 Dose: Not Given Famotidine (Pepcid) 40 mg PO HS SIMON Last Admin: 05/02/16 21:04 Dose: 40 mg Hydrocortisone Sodium Succinate (Solu-Cortef) 12.5 mg IVP DAILY [facility] Last Admin: 05/03/16 11:29 Dose: 12.5 mg Argatroban 250 mg/ Dextrose 252.5 mls @ 2.43 mls/hr IV .Q24H SIMON; 0.5 MCG/KG/ MIN PRN Reason: Protocol Last Admin: 04/29/16 13:23 Dose: 2.43 mls/hr Lactulose (Enulose) 20 gm PO DAILY [facility] Last Admin: 05/03/16 11:27 Dose: 20 gm Lorazepam (Ativan) 1 mg IVP Q2H PRN; Protocol PRN Reason: Agitation Midodrine (Proamatine) 10 mg PO TID SIMON Last Admin: 05/03/16 15:09 Dose: 10 mg Nicotine (Nicoderm Cq) 1 patch TD DAILY [facility] Last Admin: 05/03/16 11:31 Dose: 1 patch Vancomycin HCl (Vancocin 25 Mg/Ml (Oral Use)) 500 mg PO QID SIMON PRN Reason: Protocol Stop: 05/06/16 10:01 Last Admin: 05/03/16 15:09 Dose: 500 mg - Labs Labs: 05/03/16 06:20 05/03/16 06:40 PT 22.9 Seconds (9.9-11.8) H 05/03/16 06:20 INR 2.12 (0.93-1.08) H 05/03/16 06:20 APTT 60.1 Seconds (23.7-30.8) H 04/28/16 08:20 Attending/Attestation - Attestation I have personally seen and examined this patient.: Yes I have fully participated in the care of the patient.: Yes I have reviewed all pertinent clinical information, including history, physical exam and plan: Yes Notes (Text): Patient was seen and examined with medical research scientist .Agreed with resident assessment and plan. 50 year old male with past medical history of CAD s/p CABG, alcohol abuse, substance abuse, chronic liver disease and ESRD who presented with altered mental status, sepsis and hypoxic respiratory failure s/p intubation. He was later extubated and is now on nasal cannula oxygen. His mental status has improved to baseline.He is s/p IV meropenem therapy for Klebsiella pneumonia. He had chest tube for right sided pleural effusion which was removed yesterday .Patient is still having diarrhea, Diarrhea is relatively better.ID has increased dose of vancomycin 500 mg PO Q 6 hr Patient is very deconditioned, will eventually need to go to [facility] The issue of DNR/DNI was discussed in detail with patient.Patient is a full code at this time Prognosis is guarded. Management plan was discussed in detail with patient Education was provided.
--- NOTE | 2016-05-03 14:36 | PN ---
DATE: 05/03/2016 The patient was seen at dialysis earlier today that was being performed in the intensive care unit. He was tolerating it well without any difficulties and was in good spirits. PHYSICAL EXAMINATION: VITAL SIGNS: Blood pressure is 98/62, heart rate 99, oral temperature is 97.5, respiratory rate is 1 8. HEENT: The patient was normocephalic and atraumatic. There is no sinus tenderness. Conjunctivae we re neither pale nor icteric. The patient did look chronically ill. CHEST: Lungs paez were auscultated anteriorly and there were no rales, rhonchi or wheezing. [facility]. CARDIAC: Had a regular rate and rhythm without any rubs or gallops. ABDOMEN: Soft, distended, but nontender. He had ascites, but there was no rebounding, guarding or r igidity. EXTREMITIES: Had 1+ sacral edema with dependent edema. NEUROLOGIC: He was nonfocal. He did have a right IJ PermCath in place. LABORATORY STUDIES: White count is 10.8, H and H is 11/33.6 with a platelet count of 114,000. There are 81% neutrophils, 10% lymphocytes. INR is 2.12. Sodium is 134, potassium 4.5, chloride is 103, bicarbonate 20, BUN/creatinine is 103/7.2 with a glucose of 71. Corrected calcium is 8.7. There is no new microbiology data to report. There no new imaging to report either. IMPRESSION AND PLAN: The patient is a 50-year-old gentleman with a known history of alcohol abuse, h epatitis C with cirrhosis, history of cocaine and heroin abuse, end-stage renal disease on hemodialys is every Monday, , Monday at [facility] under the care of Dr. Ramirez, who is his nephro logist, via right IJ PermCath, admitted after being found lethargic and surrounded by approximately 3 0 bags of heroin. He required 2 bags of Narcan in the ED, which caused him to become more alert. Hos pitalization was complicated by septic shock, presumably secondary to aspiration pneumonia for which the patient had been on pressors as well as antibiotics. He ultimately required right-sided chest tu be as well. Chest tube has been removed. The patient is currently off pressors. Of note, hospitali zation was also complicated by a left internal jugular vein thrombosis and an echocardiogram that rev ealed pulmonary hypertension 1. Infectious disease followup is appreciated. The patient has completed a course of meropenem for his aspiration pneumonia. He is on oral vancomycin for Clostridium difficile associated diarrhea, wh ich is improving, with today being day #11 out of 14. 2. The patient is currently on hemodialysis and tolerating well. We will continue dialyzing him Mon, , Monday via right IJ PermCath as per his outpatient dialysis schedule. 3. Gastrointestinal followup is appreciated as well. I agree with performing repeat therapeutic par acentesis prior to discharge. 4. Because patient has end-stage renal disease. He would not be responsive to diuretic therapy. 5. For chronic hypotension, continue midodrine 10 mg orally 3 times a day. 6. For his left jugular thrombosis, patient is currently off anticoagulation. Will defer to hematol ogy as to whether he requires additional anticoagulation. 7. For gastrointestinal prophylaxis, continue famotidine 40 mg nightly. 8. After today, next hemodialysis session will be on . Jose Gonzalez MD cc: [phone] TT: 05/03/2016 14:35:23 Confirmation # [id number] Dictation # [id number] lobo
--- NOTE | 2016-05-04 01:40 | PN ---
DATE: 05/03/2016 The patient is currently in room 561. SUBJECTIVE: The patient was in the unit. He was being dialyzed and is tolerating it well without di fficulties and in good spirits. The patient is being followed by me for thrombocytopenia. PHYSICAL EXAMINATION: VITAL SIGNS: Stable. Blood pressure is 98/62, heart rate is 99, T-max is 98.4, respirations 18. HEENT: Head is normocephalic, atraumatic. Conjunctivae pale. Sclerae are anicteric. NECK: Supple. There is no adenopathy. LUNGS: Clear to percussion and auscultation without any rales, rhonchi or wheezing. Right chest tub e has been removed earlier in the unit. HEART: Reveals S1 and S2 to be normal. No gallop or murmur is heard. ABDOMEN: Soft, distended, nontender. The patient has ascites, but no rebound, guarding or rigidity. EXTREMITIES: The patient has 1+ sacral edema with dependent edema. NEUROLOGIC: The patient has a right internal jugular PermCath in place. His prior diagnosis was helio t he had a subacute DVT in the left internal jugular vein. LABORATORY DATA: Reveals a white count of 10.8, H and H is 11 and 33, platelet count 114,000. INR i s 2.1, is on low doses of Coumadin. Sodium is 134, K is 4.5, chloride 103, BUN is 20, creatinine to BUN ratio is 1.03 to 7.2, glucose of 71. Corrected calcium is 8.7. ASSESSMENT NOTES AND PLAN: This is a 50-year-old male who had multiple complications with known hist ory of alcohol abuse, hepatitis C, cirrhosis, cocaine and heroin abuse with end-stage renal disease o n hemodialysis on a Monday, , Monday schedule at [facility]. Has been under the care of ____ _, was admitted after being found lethargic and surrounded by almost 30 packs of heroin. He required 2 bags of Narcan in the Emergency Room and then his hospitalization was complicated by septic shock secondary to aspiration pneumonia for which he was on pressors, had ascitic fluid tapped. He also [place] d a chest tube placed on the right side and, during the course of the hospitalization in the unit, wa s also significantly thrombocytopenic, which worsened in a period of 5 days when he was on heparin, s witched over to argatroban while heparin-induced antibody study count was ordered, but the count came back as negative. The patient was switched over from argatroban to Coumadin, which he is currently on. ID is following him and has completed his course of meropenem for his aspirations on oral vancom ycin for C. diff. The patient is on hemodialysis on a 3-day schedule. We will follow the patient wit h you for now. The patient is cleared for low dose Coumadin therapy. We will review treatment recom mendations by the mangle tender cloth as well and discussed with the treatment team as well. Esha Latham MD cc: [phone] TT: 05/04/2016 01:40:14 Confirmation # [id number] Dictation # [id number] mn
[2016-05-04 06:58] VITALS: RESP 18
--- NOTE | 2016-05-04 08:05 | CP.PCM.PN ---
Subjective - Date & Time of Evaluation Date of Evaluation: 05/04/16 Time of Evaluation: 08:03 - Subjective Subjective: SURGERY PROGRESS NOTE FOR DR. HENAO Patient is seen and examined at bedside. No acute events overnight. Patient is transferred out of ICU yesterday. Tolerating diet. No fevers, chills, CP, SOB or LE pain. Pt does c/o feeling cold and has all his street clothes on. Objective - Vital Signs/Intake and Output Vital Signs (last 24 hours): Temp Pulse Resp BP Pulse Ox 97.4 F L 57 L 18 109/63 95 05/04/16 06:00 05/04/16 06:00 05/04/16 06:00 05/04/16 06:00 05/04/16 06:00 Intake and Output: 05/04/16 05/04/16 06:59 18:59 Intake Total 900 Output Total 400 Balance 500 - Medications Medications: Current Medications Albuterol/Ipratropium (Duoneb 3 Mg/0.5 Mg (3 Ml) Ud) 3 ml IH [id number] PRN PRN Reason: Shortness of Breath Last Admin: 04/27/16 07:48 Dose: 3 ml Calcium Acetate (Phoslo) 667 mg PO WM SIMON Last Admin: 05/03/16 17:12 Dose: 667 mg Famotidine (Pepcid) 40 mg PO HS SIMON Last Admin: 05/03/16 23:24 Dose: 40 mg Hydrocortisone Sodium Succinate (Solu-Cortef) 12.5 mg IVP DAILY [facility] Last Admin: 05/03/16 11:29 Dose: 12.5 mg Argatroban 250 mg/ Dextrose 252.5 mls @ 2.43 mls/hr IV .Q24H SIMON; 0.5 MCG/KG/ MIN PRN Reason: Protocol Last Admin: 04/29/16 13:23 Dose: 2.43 mls/hr Lactulose (Enulose) 20 gm PO DAILY [facility] Last Admin: 05/03/16 11:27 Dose: 20 gm Lorazepam (Ativan) 1 mg IVP Q2H PRN; Protocol PRN Reason: Agitation Midodrine (Proamatine) 10 mg PO TID [facility] Last Admin: 05/03/16 17:52 Dose: 10 mg Nicotine (Nicoderm Cq) 1 patch TD DAILY [facility] Last Admin: 05/03/16 11:31 Dose: 1 patch Trimethoprim/Sulfamethoxazole (Bactrim Ds Tab) 1 tab PO TuThSa@2000 [facility] PRN Reason: Protocol Vancomycin HCl (Vancocin 25 Mg/Ml (Oral Use)) 500 mg PO QID [facility] PRN Reason: Protocol Stop: 05/06/16 10:01 Last Admin: 05/03/16 23:22 Dose: 500 mg - Labs Labs: 05/03/16 06:20 05/03/16 06:40 PT 22.9 Seconds (9.9-11.8) H 05/03/16 06:20 INR 2.12 (0.93-1.08) H 05/03/16 06:20 APTT 60.1 Seconds (23.7-30.8) H 04/28/16 08:20 - Constitutional Appears: Non-toxic, No Acute Distress - Head Exam Head Exam: ATRAUMATIC - ENT Exam ENT Exam: Mucous Membranes Moist - Respiratory Exam Respiratory Exam: absent: Accessory Muscle Use, Respiratory Distress - Extremities Exam Extremities Exam: Full ROM. absent: Calf Tenderness, Pedal Edema, Tenderness - Neurological Exam Neurological Exam: Alert, Awake, Oriented x3 - Psychiatric Exam Psychiatric exam: Normal Affect, Normal Mood - Skin Skin Exam: Dry, Intact, Normal Color, Warm Assessment and Plan - Assessment and Plan (Free Text) Assessment: 50 y/o M is s/p right sided chest tube removal two days ago - Dressing in place at site of previous chest tube. Dressing changed today. - Cont medical management - Will sign off patient. Please feel free to reconsult as needed. Further recs discuss with Dr. Sebastián Mcwilliams, PGY1
[2016-05-04 09:50] LABS: HEMATOCRIT 33.1 % (42.0-52.0); MEAN CELL VOLUME 92.2 fL (80.0-105.0); MEAN CORPUSCULAR HEMOGLOBIN 30.1 pg (25.0-35.0); MEAN CORPUSCULAR HGB CONC 32.6 g/dl (31.0-37.0); MEAN PLATELET VOLUME 11.4 fl (7.0-11.0); RED CELL DISTRIBUTION WIDTH 16.3 % (11.5-14.5); WHITE BLOOD COUNT 9.6 10^3/ul (4.5-11.0)
[2016-05-04 10:01] LABS: BILIRUBIN,TOTAL 0.8 mg/dL (0.2-1.3); CALCIUM 7.5 mg/dL (8.4-10.5); TOTAL PROTEIN 4.3 g/dL (5.8-8.3)
[2016-05-04 10:02] LABS: INR 1.55 (0.93-1.08)
[2016-05-04] MEDS: Vancomycin 25 MG/ML PO SCH ×3 (11:01→17:25)
--- NOTE | 2016-05-04 16:00 | CP.PCM.PN ---
Subjective - Date & Time of Evaluation Date of Evaluation: 05/04/16 Time of Evaluation: 14:55 - Subjective Subjective: Stools are becoming more formed, no abdominal pain, no fevers overnight, no SOB at rest. Objective - Vital Signs/Intake and Output Vital Signs (last 24 hours): Temp Pulse Resp BP Pulse Ox 97.4 F L 57 L 18 109/63 95 05/04/16 08:57 05/04/16 08:57 05/04/16 08:57 05/04/16 08:57 05/04/16 08:57 Intake and Output: 05/04/16 05/04/16 06:59 18:59 Intake Total 900 600 Output Total 400 Balance 500 600 - Medications Medications: Current Medications Albuterol/Ipratropium (Duoneb 3 Mg/0.5 Mg (3 Ml) Ud) 3 ml IH [id number] PRN PRN Reason: Shortness of Breath Last Admin: 04/27/16 07:48 Dose: 3 ml Calcium Acetate (Phoslo) 667 mg PO WM [facility] Last Admin: 05/04/16 11:01 Dose: 667 mg Famotidine (Pepcid) 40 mg PO HS [facility] Last Admin: 05/03/16 23:24 Dose: 40 mg Argatroban 250 mg/ Dextrose 252.5 mls @ 2.43 mls/hr IV .Q24H SIMON; 0.5 MCG/KG/ MIN PRN Reason: Protocol Last Admin: 04/29/16 13:23 Dose: 2.43 mls/hr Lactulose (Enulose) 20 gm PO DAILY [facility] Last Admin: 05/04/16 10:57 Dose: 20 gm Lorazepam (Ativan) 1 mg PO Q6H PRN; Protocol PRN Reason: Agitation Midodrine (Proamatine) 10 mg PO TID [facility] Last Admin: 05/04/16 14:08 Dose: 10 mg Nicotine (Nicoderm Cq) 1 patch TD DAILY [facility] Last Admin: 05/04/16 10:57 Dose: 1 patch Trimethoprim/Sulfamethoxazole (Bactrim Ds Tab) 1 tab PO TuThSa@2000 [facility] PRN Reason: Protocol Vancomycin HCl (Vancocin 25 Mg/Ml (Oral Use)) 500 mg PO QID [facility] PRN Reason: Protocol Stop: 05/06/16 10:01 Last Admin: 05/04/16 14:08 Dose: 500 mg - Labs Labs: 05/04/16 09:47 05/04/16 09:47 PT 16.7 Seconds (9.9-11.8) H 05/04/16 09:47 INR 1.55 (0.93-1.08) H 05/04/16 09:47 APTT 60.1 Seconds (23.7-30.8) H 04/28/16 08:20 - Constitutional Appears: Non-toxic, No Acute Distress - Head Exam Head Exam: NORMAL INSPECTION - ENT Exam ENT Exam: Mucous Membranes Moist - Neck Exam Neck Exam: absent: Lymphadenopathy, Meningismus - Respiratory Exam Respiratory Exam: Decreased Breath Sounds Additional comments: right anterior chest wall HD catheter site intact and clean - Cardiovascular Exam Cardiovascular Exam: +S1, +S2 - GI/Abdominal Exam GI & Abdominal Exam: Soft. absent: Tenderness Assessment and Plan - Assessment and Plan (Free Text) Plan: Assessment S/P Septic shock with multiorgan dysfunction syndrome (MODS) with acute toxic- metabolic encephalopathy, chronic renal failure, hypoxic respiratory failure (S/ P ventilator-dependence) with probable right sided severe healthcare-associated pneumonia with Klebsiella (ESBL-producing, multidrug-resistant) with pleural effusion S/P chest tube placement POD #12 in a patient who possibly overdosed on heroin (now the chest tube has been removed); patient has clinically improved and S/P treatment for pneumonia C. diff associated diarrhea, slowly improving CAD S/P CABG ESRD on HD history of lymphadenopathy Plan S/P Meropenem; continue PO Vancomycin (day 12) - patient is improving with the increased dose of 500 mg q6 and will give up to 14 days total (ie. 2 more days) and will continue to observe
[2016-05-04 16:32] VITALS: BP 94/66; PULSE 67; TEMP 97.6; O2SAT 94
--- NOTE | 2016-05-05 18:02 | CP.PCM.DIS ---
Provider - Provider Date of Admission: 04/19/16 14:57 Attending physician: Luis Villanueva MD Primary care physician: Ciaran Matt Jr, MD Consults: ID - Dr. Venice Urias - Dr. Latham Surgery - Dr. Lowery Nephro - Dr. Gonzalez Time Spent in preparation of Discharge (in minutes): 45 Diagnosis - Discharge Diagnosis (1) Altered mental status Status: Resolved Priority: Low (2) Hypotension Status: Chronic Priority: Medium (3) Overdose Status: Acute Priority: Medium (4) Renal failure Status: Chronic Priority: Medium Hospital Course - Lab Results Lab Results: Micro Results 04/22/16 16:07 Ascitic Fluid Gram Stain - Final 04/22/16 16:07 Ascitic Fluid Anaerobic Culture - Final NO ANAEROBES ISOLATED. 04/22/16 16:07 Ascitic Fluid Body Fluid Culture - Final No growth. 04/22/16 16:07 Ascitic Fluid Fungal Culture - Preliminary NO FUNGUS GROWTH IN 1 WEEK. 04/21/16 20:27 Sputum Gram Stain - Final 04/21/16 20:27 Sputum Sputum Culture - Final Klebsiella Pneumoniae Ssp Pneu 04/23/16 10:44 Stool C. difficile Antigen & Toxin A,B (M - Final 04/19/16 17:25 Naris MRSA Culture (Admit) - Final MRSA NOT DETECTED Most Recent Lab Values WBC 9.6 10^3/ul (4.5-11.0) 05/04/16 09:47 RBC 3.59 10^6/uL (3.5-6.1) 05/04/16 09:47 Hgb 10.8 gm/dL (14.0-18.0) L 05/04/16 09:47 Hct 33.1 % (42.0-52.0) L 05/04/16 09:47 MCV 92.2 fL (80.0-105.0) 05/04/16 09:47 MCH 30.1 pg (25.0-35.0) 05/04/16 09:47 MCHC 32.6 g/dl (31.0-37.0) 05/04/16 09:47 RDW 16.3 % (11.5-14.5) H 05/04/16 09:47 Plt Count 123 10^3/uL (120.0-450.0) 05/04/16 09:47 Manual Plt Count 80 K/mm3 (120-450) L 04/28/16 06:30 MPV 11.4 fl (7.0-11.0) H 05/04/16 09:47 Gran % 79.2 % (50.0-68.0) H 05/02/16 05:16 Lymph % (Auto) 8.0 % (22.0-35.0) L 05/02/16 05:16 [place] % (Auto) 9.8 % (1.0-6.0) H 05/02/16 05:16 Eos % (Auto) 2.9 % (1.5-5.0) 05/02/16 05:16 Baso % (Auto) 0.1 % (0.0-3.0) 05/02/16 05:16 Gran # 8.96 (1.4-6.5) H 05/02/16 05:16 Lymph # 0.9 (1.2-3.4) L 05/02/16 05:16 [place] # 1.1 (0.1-0.6) H 05/02/16 05:16 Eos # 0.3 (0.0-0.7) 05/02/16 05:16 Baso # 0.01 K/mm3 (0.0-2.0) 05/02/16 05:16 Neutrophils % (Manual) 81 % (50.0-70.0) H 05/03/16 06:20 Band Neutrophils % 4 % (0-2) H 04/30/16 06:00 Lymphocytes % (Manual) 10 % (22.0-35.0) L 05/03/16 06:20 Atypical Lymphs % 1 % (0.0-0.0) H 05/03/16 06:20 Monocytes % (Manual) 6 % (1.0-6.0) 05/03/16 06:20 Eosinophils % (Manual) 2 % (0.0-3.0) 05/03/16 06:20 Platelet Evaluation Sl. dec (NORMAL) 05/03/16 06:20 Giant Platelets Present 05/03/16 06:20 Polychromasia Slight 04/27/16 06:00 Hypochromasia 1+ 05/03/16 06:20 Anisocytosis (manual) 1+ 05/03/16 06:20 Tear Drop Cells Slight 04/27/16 06:00 Ovalocytes Slight 05/03/16 06:20 PT 16.7 Seconds (9.9-11.8) H 05/04/16 09:47 INR 1.55 (0.93-1.08) H 05/04/16 09:47 APTT 60.1 Seconds (23.7-30.8) H 04/28/16 08:20 Hep-Kailee Thrombocytopen Negative (Negative) 04/26/16 07:57 pCO2 18 mm/Hg (35-45) L* 04/23/16 06:00 pO2 103.0 mm/Hg (80-100) H 04/23/16 06:00 HCO3 10.4 mmol/L (21-28) L 04/23/16 06:00 ABG pH 7.37 (7.35-7.45) 04/23/16 06:00 ABG Total CO2 11.0 mmol.L (22-28) L 04/23/16 06:00 ABG O2 Saturation 98.4 % (95-98) H 04/23/16 06:00 ABG O2 Content 10.5 ML/dl (15-23) L 04/23/16 06:00 ABG Base Excess -13.4 mmol/L (-2.0-3.0) L 04/23/16 06:00 ABG Hemoglobin 7.5 g/dL (11.7-17.4) L 04/23/16 06:00 ABG Carboxyhemoglobin 1.0 % (0.5-1.5) 04/23/16 06:00 POC ABG HHb (Measured) 1.6 % (0-5) 04/23/16 06:00 ABG Methemoglobin 0.1 % (0.0-3.0) 04/23/16 06:00 ABG O2 Capacity 10.7 mL/dl (16-24) L 04/23/16 06:00 ABG Potassium 3.3 mmol/L (3.6-5.2) L 04/22/16 13:53 Hgb O2 Saturation 97.2 % (95.0-98.0) 04/23/16 06:00 Sodium 132.0 mmol/L (132-148) 04/22/16 13:53 Chloride 104.0 mmol/L (98-107) 04/22/16 13:53 Glucose 134 mg/dl (75-110) H 04/22/16 13:53 Lactate 1.2 mmol/L (0.7-2.1) 04/22/16 13:53 FiO2 60.0 % 04/23/16 06:00 PEEP 5 04/22/16 13:53 Pressure Support 7 04/22/16 13:53 Sodium 133 mmol/L (132-148) 05/04/16 09:47 Potassium 5.0 mmol/L (3.6-5.0) 05/04/16 09:47 Chloride 101 mmol/L (98-107) 05/04/16 09:47 Carbon Dioxide 22 mmol/L (21-33) 05/04/16 09:47 Anion Gap 15 (10-20) 05/04/16 09:47 BUN 80 mg/dL (7-21) H 05/04/16 09:47 Creatinine 6.0 mg/dL (0.5-1.4) H 05/04/16 09:47 Est GFR ( Amer) 12 05/04/16 09:47 Est GFR (Non-Af Amer) 10 05/04/16 09:47 POC Glucose (mg/dL) 96 mg/dL (65-110) 05/03/16 21:56 Random Glucose 94 mg/dL (70-110) 05/04/16 09:47 Calcium 7.5 mg/dL (8.4-10.5) L 05/04/16 09:47 Phosphorus 3.5 mg/dL (2.5-4.5) 04/30/16 06:00 Magnesium 1.9 mg/dL (1.7-2.2) 04/30/16 06:00 Total Bilirubin 0.8 mg/dL (0.2-1.3) 05/04/16 09:47 AST 15 U/L (15-59) 05/04/16 09:47 ALT 23 U/L (7-56) 05/04/16 09:47 Alkaline Phosphatase 115 U/L (38-133) 05/04/16 09:47 Ammonia < 9 umol/L (9-33) L 04/28/16 06:45 Lactate Dehydrogenase 826 U/L (333-699) H 04/20/16 05:30 Total Creatine Kinase 1031 U/L (35-230) H 04/20/16 05:30 CK-MB (CK-2) 17.8 NG/ML (0.0-3.6) H 04/20/16 05:30 CK-MB (CK-2) % 1.7 % (2.5-3.0) L 04/20/16 05:30 Troponin I < 0.01 ng/mL D 04/20/16 05:30 NT-Pro-B Natriuret Pep 86054 pg/mL (0-450) H 04/19/16 12:56 Total Protein 4.3 g/dL (5.8-8.3) L 05/04/16 09:47 Albumin 2.1 g/dL (3.0-4.8) L 05/04/16 09:47 Globulin 2.2 gm/dL 05/04/16 09:47 Albumin/Globulin Ratio 1.0 (1.1-1.8) L 05/04/16 09:47 Serotonin <10 ng/mL (56-244) L 04/26/16 20:35 UF Heparin Interp Negative (Negative) 04/28/16 08:20 Ethanolamine None detected (()) 04/19/16 21:10 Procalcitonin 2.89 NG/ML (0.19-0.49) H 04/21/16 10:05 Arterial Blood Potassium 3.3 mmol/L (3.6-5.2) L 04/22/16 13:53 Fluid Source Peritoneal/ascites 04/22/16 16:07 Fluid Appearance Clear (CLEAR) 04/22/16 16:07 Fluid WBC 27587.0 /uL (0.0-300.0) H 04/22/16 16:07 Fluid RBC 0.0 /uL (0.0-0.0) 04/22/16 16:07 Fluid Tot Cell Count 100 (0-0) H 04/22/16 16:07 Fluid Neutrophils 28.0 % (0-0) H 04/22/16 16:07 Fluid Lymphocytes 72.0 % (0-0) H 04/22/16 16:07 Fld Monocyte/Macrophag TEST NOT PERFORMED 04/22/16 16:07 Fluid Albumin 0.4 g/dL (()) 04/22/16 16:07 Fluid Comment yellow 04/22/16 16:07 Peritoneal Lipase 5.0 U/L (<10) 04/22/16 16:07 Pleural pH 8.0 04/22/16 09:00 Pleural Total Protein <3.0 g/dL (()) 04/22/16 09:00 Pleural LDH 126 U/L (()) 04/22/16 09:00 Digoxin 1.1 ng/mL (0.8-2.0) 04/19/16 12:30 Acetaminophen < 10.0 ug/ml (10.0-20.0) L 04/19/16 18:00 Toxicology Panel see note (()) 04/19/16 21:10 Alcohol, Quantitative < 10 mg/dL (0-10) 04/19/16 12:56 Methyl Alcohol Level None detected (()) 04/19/16 21:10 Isopropanol None detected (()) 04/19/16 21:10 Acetone Level 7 mg/dL (()) H 04/19/16 21:10 Heparin-induced Plt Ab Negative (Negative) 04/26/16 20:35 ANGIE UFH Low Dose 0.1 0 % Release (()) 04/28/16 08:20 ANGIE UFH Low Dose 0.5 0 % Release (()) 04/28/16 08:20 ANGIE UFH High Dose 100 0 % Release (()) 04/28/16 08:20 - Hospital Course Hospital Course: 50 y/o with PMH of alcohol abuse, cocaine and heroine abuse, ascites with liver cirrhosis, ESRD (HD on , , and Monday), CAD with CABG in the past brought in by ambulance after patient was found unconscious at [facility], where patient resides. Patient was found with bags of heroin in front of him. In the ED patient was giving 2 doses of narcan. Patient is currently awake, but very altered and lethargic. Pt became hypoxic and was found to have aspiration pneumonia and intubated. Pt finished 8 days of Merrem for pneumonia. Subsequent CT of chest displayed loculated effusion of the right chest. Pt had a chest tube placed by surgery which stayed in place for 2 weeks. Pt also began to develop abdominal ascites and underwent paracentesis. As pt improved, he was found to have left upper extremity blood clot and was started on heparin. Platelets began to fall and pt was transitioned to agatroban which swiftly corrected platelets. Pt was then transitioned to warfarin and transitioned out of the ICU. During the time in the ICU, pt was found to have C. diff colitis and placed on vancomycin. Pt was not improving on vancomycin and vancomycin dose was increased which cause the patient to respond. Pt undergoing dialysis on Monday, , and Saturdays during his time in the hospital Pt will be transferred to TCU for further care and management. Discharge Exam - Head Exam Head Exam: ATRAUMATIC, NORMAL INSPECTION, NORMOCEPHALIC - ENT Exam ENT Exam: Mucous Membranes Moist, Normal Exam - Respiratory Exam Respiratory Exam: Rhonchi, NORMAL BREATHING PATTERN, UNREMARKABLE. absent: Wheezes - Cardiovascular Exam Cardiovascular Exam: RRR, +S1, +S2 - GI/Abdominal Exam GI & Abdominal Exam: Normal Bowel Sounds, Soft. absent: Tenderness - Extremities Exam Extremities exam: normal inspection - Neurological Exam Neurological exam: Alert, CN II-XII Intact, Oriented x3 - Psychiatric Exam Psychiatric exam: Normal Affect, Normal Mood - Skin Skin Exam: Intact, Normal Color, Warm Discharge Plan - Follow Up Plan Condition: CRITICAL Disposition: TRANSF TO SNF Instructions: How to Stop Smoking (DC), Pneumococcal Vaccine for Adults (DC), Renal Failure Diet (DC), Cigarette Smoking and Your Health (GEN), Narcotic Abuse (DC), Influenza Vaccine (DC), Clostridium Difficile Infection (DC), Abuse of Alcohol (DC), Extended Spectrum Beta Lactamase (GEN), Fall Prevention (DC), End Stage Kidney Disease (DC), Altered Mental Status (GEN) Additional Instructions: Discharge patient to TR. Referrals: Ciaran Matt Jr., MD [Primary Care Provider] -
--- NOTE | 2016-05-05 18:55 | CP.PCM.HP ---
History of Present Illness - History of Present Illness History of Present Illness: 50 y/o with PMH of alcohol abuse, cocaine and heroine abuse, ascites with liver cirrhosis, ESRD (HD on , , and Monday), CAD with CABG in the past brought in by ambulance after patient was found unconscious at [facility], where patient resides. Patient was found with bags of heroin in front of him. In the ED patient was giving 2 doses of narcan. Patient is currently awake, but very altered and lethargic. Pt became hypoxic and was found to have aspiration pneumonia and intubated. Pt finished 8 days of Merrem for pneumonia. Subsequent CT of chest displayed loculated effusion of the right chest. Pt had a chest tube placed by surgery which stayed in place for 2 weeks. Pt also began to develop abdominal ascites and underwent paracentesis. As pt improved, he was found to have left upper extremity blood clot and was started on heparin. Platelets began to fall and pt was transitioned to agatroban which swiftly corrected platelets. Pt was then transitioned to warfarin and transitioned out of the ICU. During the time in the ICU, pt was found to have C. diff colitis and placed on vancomycin. Pt was not improving on vancomycin and vancomycin dose was increased which cause the patient to respond. Pt undergoing dialysis on Monday, , and Saturdays during his time in the hospital Pt will be transferred to TCU for further care and management. PMH: alcohol abuse, cocaine and heroine abuse, ascites with liver cirrhosis, ESRD ( on HD , , and Monday), CAD with CABG PSH: CABG, cardiac cath, paracentesis Social: Admits to alcohol abuse, uses heroinr, cocaine. Homeless. Allergy: NKDA Present on Admission - Present on Admission Any Indicators Present on Admission: No Review of Systems - Constitutional Constitutional: absent: Fatigue, Lethargy - EENT Eyes: absent: Blurred Vision, Change in Vision - Cardiovascular Cardiovascular: absent: Chest Pain, Irregular Heart Rhythm, Syncope - Respiratory Respiratory: absent: Cough - Gastrointestinal Gastrointestinal: Abdominal Pain, Diarrhea. absent: Vomiting - Genitourinary Genitourinary: absent: Difficulty Urinating, Dysuria - Integumentary Integumentary: absent: New Lesions, Swelling - Neurological Neurological: absent: Syncope, Tingling, Tremor - Hematologic/Lymphatic Hematologic: absent: Easy Bleeding, Easy Bruising Past Patient History - Past Social History Smoking Status: Heavy Smoker > 10 Cigarettes Daily - CARDIAC Hx Cardiac Disorders: Yes - PULMONARY Hx Pneumonia: Yes - NEUROLOGICAL Hx Dizziness: Yes - HEENT Other/Comment: with dentures upper and lower dentures - RENAL Hx Renal Failure: Yes - HEMATOLOGICAL/ONCOLOGICAL Hx Hepatitis B: Yes - INTEGUMENTARY Other/Comment: multiple tatoos, multiple small abrasions to left forehead, ble dry scaley tight discolored skin +1 pitting edema, rred sacrum - MUSCULOSKELETAL/RHEUMATOLOGICAL Hx Arthritis: Yes - GASTROINTESTINAL Hx Gastrointestinal Disorders: Yes (umbilical hernia, ascites) Hx Liver Failure: Yes (cirrhosis) - PSYCHIATRIC Hx Substance Use: No - SURGICAL HISTORY Hx Open Heart Surgery: Yes - ANESTHESIA Hx Anesthesia: Yes Hx Anesthesia Reactions: No Hx Malignant Hyperthermia: No Meds Home Medications: Home Medication List Medication Instructions Recorded Confirmed Type Albuterol/Ipratropium [Duoneb 3 3 ml IH [id number] PRN #0 neb 05/04/16 05/04/16 Rx mg/0.5 mg (3 ml) UD] Calcium Acetate [Phoslo] 667 mg PO WM #0 tab 05/04/16 05/04/16 Rx Famotidine [Pepcid] 40 mg PO HS #0 tab 05/04/16 05/04/16 Rx LORazepam [Ativan] 1 mg PO Q6H PRN #0 tab 05/04/16 05/04/16 Rx Lactulose [Enulose] 20 gm PO DAILY #0 udc 05/04/16 05/04/16 Rx Midodrine [Proamatine] 10 mg PO TID #0 tab 05/04/16 05/04/16 Rx Nicotine 14 mg/24 hr [Nicoderm CQ] 1 patch TD DAILY #0 patch 05/04/16 05/04/16 Rx Sulfamethoxazole/Trimethoprim 1 tab PO TuThSa@2000 #0 tab 05/04/16 05/04/16 Rx [Bactrim DS Tab] Vancomycin [Vancocin 25 mg/ml 500 mg PO QID #0 ml 05/04/16 05/04/16 Rx (Oral Use)] Allergies/Adverse Reactions: Allergies Allergy/AdvReac Type Severity Reaction Status Date / Time No Known Allergies Allergy Verified 05/04/16 19:21 Physical Exam - Constitutional Appears: Well, No Acute Distress - Head Exam Head Exam: ATRAUMATIC, NORMAL INSPECTION, NORMOCEPHALIC - Eye Exam Eye Exam: EOMI, Normal appearance - ENT Exam ENT Exam: Mucous Membranes Moist, Normal Exam - Neck Exam Neck exam: Positive for: Normal Inspection. Negative for: Lymphadenopathy - Respiratory Exam Respiratory Exam: Clear to Auscultation Bilateral, NORMAL BREATHING PATTERN. absent: Rhonchi, Wheezes - Cardiovascular Exam Cardiovascular Exam: RRR, +S1, +S2 - GI/Abdominal Exam GI & Abdominal Exam: Normal Bowel Sounds, Soft. absent: Tenderness - Extremities Exam Extremities exam: Positive for: normal inspection. Negative for: calf tenderness, pedal edema - Neurological Exam Neurological exam: Alert, CN II-XII Intact, Oriented x3 - Psychiatric Exam Psychiatric exam: Normal Affect, Normal Mood - Skin Skin Exam: Intact, Normal Color, Warm Results - Vital Signs Recent Vital Signs: Last Vital Signs Temp 97.6 F 05/04/16 16:00 Pulse 67 05/04/16 16:00 Resp 18 05/04/16 16:00 BP 94/66 L 05/04/16 16:00 Pulse Ox 94 L 05/04/16 16:00 - Labs Result Diagrams: 05/04/16 09:47 05/04/16 09:47 Assessment & Plan (1) Altered mental status Status: Resolved Priority: Low (2) Hypotension Status: Chronic Priority: Medium (3) Overdose Status: Acute Priority: Medium (4) Renal failure Status: Chronic Priority: Medium - Assessment and Plan (Free Text) Assessment: 50 y/o with PMH of alcohol abuse, cocaine and heroine abuse, ascites with liver cirrhosis, ESRD (HD on , , and Monday), CAD with CABG presents to the TCU for further treatment and physical therapy after prolonged hospital stay. Pt underwent paracentesis today and refused dialysis. Dialysis likely scheduled for tomorrow. Pt was hypotensive earlier this morning and was given a 500 cc bolus which helped to correct this. Will monitor BP. 1. C. Diff colitis - Finishing vancomycin at this time - Monitor for loose stools 2. Left upper extremity clot - Will resume warfarin tomorrow since pt has had paracentesis 3. Hypotension - Midodrine - Fluid bolus for hypotension 4. Ascites - Paracentesis today - Monitor for re-accumulation of ascites - Pain medication, oxycodone - Lactulose for hepatic encephalopathy ppx 5. PPX - Zofran - PPX Seen, reviewed, and discussed with attending. Gabby, PGY-1
[2016-05-05] MEDS ORDERED: Tmp-Smz 800 mg-160 mg DS Tab PO SCH (20:00)
== END 2016-05-04 18:45 | DRG 871 ==
LOC: ED 10:43 → ERH 14:57 → CCU 16:22 → 5RNO 05-03 13:32
PROVIDERS: ADMIT Internal Medicine; ATTEND Internal Medicine
PROC: 5A1945Z Respiratory Ventilation, 24-96 Consecutive Hours (ICD-10-PCS; principal; 2016-04-21)
PROC: 0W9B30Z Drainage of Left Pleural Cavity with Drainage Device, Percutaneous Approach (ICD-10-PCS; 2016-04-21)
PROC: 06HM33Z Insertion of Infusion Device into Right Femoral Vein, Percutaneous Approach (ICD-10-PCS; 2016-04-21)
PROC: 04HL33Z Insertion of Infusion Device into Left Femoral Artery, Percutaneous Approach (ICD-10-PCS; 2016-04-21)
PROC: 0BH17EZ Insertion of Endotracheal Airway into Trachea, Via Natural or Artificial Opening (ICD-10-PCS; 2016-04-21)
PROC: 02HV33Z Insertion of Infusion Device into Superior Vena Cava, Percutaneous Approach (ICD-10-PCS; 2016-04-22)
PROC: 0W9G3ZZ Drainage of Peritoneal Cavity, Percutaneous Approach (ICD-10-PCS; 2016-04-22)
PROC: BW40ZZZ Ultrasonography of Abdomen (ICD-10-PCS; 2016-04-22)
DX: A41.59 Other Gram-negative sepsis (principal); J96.01 Acute respiratory failure with hypoxia; K72.00 Acute and subacute hepatic failure without coma; R65.21 Severe sepsis with septic shock; J69.0 Pneumonitis due to inhalation of food and vomit; G92 Toxic encephalopathy; J91.8 Pleural effusion in other conditions classified elsewhere; T68.XXXA Hypothermia, initial encounter; J15.0 Pneumonia due to Klebsiella pneumoniae; N18.6 End stage renal disease; K65.2 Spontaneous bacterial peritonitis; A04.7 Enterocolitis due to Clostridium difficile; Z99.11 Dependence on respirator [ventilator] status; J44.0 Chronic obstructive pulmonary disease with (acute) lower respiratory infection; I82.622 Acute embolism and thrombosis of deep veins of left upper extremity; I82.C13 Acute embolism and thrombosis of internal jugular vein, bilateral; I12.0 Hypertensive chronic kidney disease with stage 5 chronic kidney disease or end stage renal disease; J93.9 Pneumothorax, unspecified; J98.11 Atelectasis; K76.6 Portal hypertension; M62.82 Rhabdomyolysis; E46 Unspecified protein-calorie malnutrition; E87.1 Hypo-osmolality and hyponatremia; D69.59 Other secondary thrombocytopenia; B18.2 Chronic viral hepatitis C; Z99.2 Dependence on renal dialysis; F10.10 Alcohol abuse, uncomplicated; F11.90 Opioid use, unspecified, uncomplicated; D75.82 Heparin induced thrombocytopenia (HIT); E16.2 Hypoglycemia, unspecified; E83.39 Other disorders of phosphorus metabolism; E83.51 Hypocalcemia; E87.6 Hypokalemia; E88.09 Other disorders of plasma-protein metabolism, not elsewhere classified; I08.1 Rheumatic disorders of both mitral and tricuspid valves; I25.10 Atherosclerotic heart disease of native coronary artery without angina pectoris; Z95.1 Presence of aortocoronary bypass graft; Z16.24 Resistance to multiple antibiotics; Y95 Nosocomial condition; I27.2 Other secondary pulmonary hypertension; I95.89 Other hypotension; R56.9 Unspecified convulsions; R79.1 Abnormal coagulation profile; Z59.0 Homelessness; Z78.1 Physical restraint status; Z79.01 Long term (current) use of anticoagulants; Z86.718 Personal history of other venous thrombosis and embolism; Z87.01 Personal history of pneumonia (recurrent); Z87.19 Personal history of other diseases of the digestive system; Z95.2 Presence of prosthetic heart valve; F17.210 Nicotine dependence, cigarettes, uncomplicated; M19.90 Unspecified osteoarthritis, unspecified site; Z91.19 Patient's noncompliance with other medical treatment and regimen; R16.2 Hepatomegaly with splenomegaly, not elsewhere classified; R13.12 Dysphagia, oropharyngeal phase; E83.42 Hypomagnesemia; F19.10 Other psychoactive substance abuse, uncomplicated; R40.2414 Glasgow coma scale score 13-15, 24 hours or more after hospital admission; T40.1X4A Poisoning by heroin, undetermined, initial encounter; R19.7 Diarrhea, unspecified; K70.31 Alcoholic cirrhosis of liver with ascites

== ENCOUNTER 2016-05-04 18:48 | Inpatient (IN) | payer OTHER ==
[2016-05-04 19:24] VITALS: BMI 25.9
[2016-05-04] MEDS ORDERED: Albuterol-Ipratrop 3 mg / 0.5 (3 ml) UD IH PRN (19:28)
[2016-05-04] MEDS: Vancomycin 25 MG/ML PO SCH (21:25)
[2016-05-05] MEDS ORDERED: Morphine 2 mg/ml ISec IVP PRN (08:56)
[2016-05-05] MEDS: Vancomycin 25 MG/ML PO SCH ×4 (09:41→21:30)
[2016-05-05 11:21] LABS: INR 1.3 (0.93-1.08)
[2016-05-05] MEDS: Sodium Chloride 0.9% 500 ML IV STA ×2 (12:00→12:20)
--- NOTE | 2016-05-05 13:18 | CP.PCM.PN ---
Subjective - Date & Time of Evaluation Date of Evaluation: 05/05/16 Time of Evaluation: 12:15 - Subjective Subjective: Patient has very poor veins,needs iv access. Objective - Vital Signs/Intake and Output Vital Signs (last 24 hours): Temp Pulse Resp BP Pulse Ox 97 F L 75 18 72/48 L 94 L 05/05/16 10:00 05/05/16 10:00 05/05/16 10:00 05/05/16 10:00 05/05/16 10:00 Intake and Output: 05/05/16 05/05/16 06:59 18:59 Intake Total 420 Balance 420 - Medications Medications: Current Medications Albuterol/Ipratropium (Duoneb 3 Mg/0.5 Mg (3 Ml) Ud) 3 ml IH [id number] PRN PRN Reason: Shortness of Breath Calcium Acetate (Phoslo) 667 mg PO WM [facility] Last Admin: 05/05/16 12:39 Dose: 667 mg Famotidine (Pepcid) 40 mg PO HS [facility] Last Admin: 05/04/16 21:25 Dose: 40 mg Lactulose (Enulose) 20 gm PO DAILY [facility] Last Admin: 05/05/16 09:40 Dose: 20 gm Lorazepam (Ativan) 1 mg PO Q6H PRN; Protocol PRN Reason: Agitation Midodrine (Proamatine) 10 mg PO TID [facility] Last Admin: 05/05/16 09:40 Dose: 10 mg Nicotine (Nicoderm Cq) 1 patch TD DAILY [facility] Last Admin: 05/05/16 09:40 Dose: 1 patch Oxycodone HCl (Oxycodone Immediate Release Tab) 5 mg PO Q6H PRN; Protocol PRN Reason: Pain, severe (8-10) Vancomycin HCl (Vancocin 25 Mg/Ml (Oral Use)) 500 mg PO QID [facility] PRN Reason: Protocol Last Admin: 05/05/16 09:41 Dose: 500 mg - Labs Labs: PT 14.0 Seconds (9.9-11.8) H 05/05/16 11:00 INR 1.30 (0.93-1.08) H 05/05/16 11:00 - Constitutional Appears: No Acute Distress Assessment and Plan - Assessment and Plan (Free Text) Assessment: Poor venous access Plan: Hep lock inserted in the R hand. # 24 angiocath used.
[2016-05-05 14:16] LABS: HEMATOCRIT 32.5 % (42.0-52.0); MEAN CORPUSCULAR HEMOGLOBIN 30.3 pg (25.0-35.0); MEAN CORPUSCULAR HGB CONC 33.2 g/dl (31.0-37.0); MEAN PLATELET VOLUME 11.6 fl (7.0-11.0); RED CELL DISTRIBUTION WIDTH 16.3 % (11.5-14.5); WHITE BLOOD COUNT 8.5 10^3/ul (4.5-11.0)
[2016-05-05 14:20] LABS: ALB/GLOB RATIO 0.9 (1.1-1.8); BILIRUBIN,TOTAL 0.8 mg/dL (0.2-1.3); CALCIUM 7.3 mg/dL (8.4-10.5); POTASSIUM 4.9 mmol/L (3.6-5.0); TOTAL PROTEIN 4.7 g/dL (5.8-8.3)
--- NOTE | 2016-05-05 15:01 | CP.PCM.CON ---
History of Present Illness - History of Present Illness History of Present Illness: 49 year old male with PMH of CAD S/P CABG, ESRD on HD, history of lymphadenopathy was initially admitted in [facility] after being found unconscious at the [facility]. He was on the ventilator, chest tube placed on the right for pleural effusion and treated for pneumonia. He also developed C diff associated diarrhea. He has done well and is now transferred to [facility] to continue medical therapy and physical rehabilitation. Infectious diseases consult is requested to continue his C diff infection treatment. Currently the patient is comfortable on a chair, not in distress, has no fever or chills, has occasional pain on the right side of his chest, no headache or dizziness, no abdominal pain. His stools are now more formed, no nausea or vomiting, no dysuria. Social History: The patient is apparently homeless, and lives at the [facility]. He has a significant smoking history, has been a chronic alcohol drinker and uses heroin and cocaine Review of Systems - Review of Systems All systems: reviewed and no additional remarkable complaints except (as per HPI ) Past Patient History - Past Medical History & Family History Past Medical History?: Yes Past Family History: Reviewed and not pertinent - Past Social History Smoking Status: Former Smoker Alcohol: > 2 Drinks/Day Drugs: Cocaine, Opiates Home Situation {Lives}: Homeless - CARDIAC Hx Cardiac Disorders: Yes - PULMONARY Hx Pneumonia: Yes - NEUROLOGICAL Hx Dizziness: Yes - HEENT Other/Comment: with dentures upper and lower dentures - RENAL Hx Renal Failure: Yes - HEMATOLOGICAL/ONCOLOGICAL Hx Hepatitis B: Yes - INTEGUMENTARY Other/Comment: multiple tatoos, multiple small abrasions to left forehead, ble dry scaley tight discolored skin +1 pitting edema, rred sacrum - MUSCULOSKELETAL/RHEUMATOLOGICAL Hx Arthritis: Yes Hx Falls: No - GASTROINTESTINAL Hx Gastrointestinal Disorders: Yes (umbilical hernia, ascites) Hx Liver Failure: Yes (cirrhosis) - PSYCHIATRIC Hx Substance Use: No - SURGICAL HISTORY Hx Open Heart Surgery: Yes - ANESTHESIA Hx Anesthesia: Yes Hx Anesthesia Reactions: No Hx Malignant Hyperthermia: No Meds Allergies/Adverse Reactions: Allergies Allergy/AdvReac Type Severity Reaction Status Date / Time No Known Allergies Allergy Verified 05/04/16 19:21 - Medications Medications: Current Medications Albuterol/Ipratropium (Duoneb 3 Mg/0.5 Mg (3 Ml) Ud) 3 ml IH [id number] PRN PRN Reason: Shortness of Breath Calcium Acetate (Phoslo) 667 mg PO [facility] Famotidine (Pepcid) 40 mg PO HS [facility] Last Admin: 05/04/16 21:25 Dose: 40 mg Lactulose (Enulose) 20 gm PO DAILY [facility] Lorazepam (Ativan) 1 mg PO Q6H PRN; Protocol PRN Reason: Agitation Midodrine (Proamatine) 10 mg PO TID [facility] Nicotine (Nicoderm Cq) 1 patch TD DAILY [facility] Trimethoprim/Sulfamethoxazole (Bactrim Ds Tab) 1 tab PO TuThSa@2000 [facility] PRN Reason: Protocol Vancomycin HCl (Vancocin 25 Mg/Ml (Oral Use)) 500 mg PO QID [facility] PRN Reason: Protocol Last Admin: 05/04/16 21:25 Dose: 500 mg Physical Exam - Constitutional Appears: Non-toxic, No Acute Distress - Head Exam Head Exam: NORMAL INSPECTION - ENT Exam ENT Exam: Mucous Membranes Moist - Neck Exam Neck exam: Negative for: Lymphadenopathy, Meningismus - Respiratory Exam Respiratory Exam: Decreased Breath Sounds Additional comments: right anterior chest wall HD catheter site intact and clean - Cardiovascular Exam Cardiovascular Exam: +S1, +S2 - GI/Abdominal Exam GI & Abdominal Exam: Soft. absent: Tenderness Results - Vital Signs Recent Vital Signs: Last Vital Signs Temp 97.8 F 05/05/16 06:00 Pulse 65 05/05/16 06:00 Resp 20 05/05/16 06:00 BP 91/62 L 05/05/16 06:00 Pulse Ox 93 L 05/05/16 06:00 - Labs Result Diagrams: 05/05/16 14:05 05/05/16 14:05 Assessment & Plan - Assessment and Plan (Free Text) Plan: Assessment S/P Septic shock with multiorgan dysfunction syndrome (MODS) with acute toxic- metabolic encephalopathy, chronic renal failure, hypoxic respiratory failure (S/ P ventilator-dependence) with probable right sided severe healthcare-associated pneumonia with Klebsiella (ESBL-producing, multidrug-resistant) with pleural effusion S/P chest tube placement POD #13 in a patient who possibly overdosed on heroin (now the chest tube has been removed); patient has clinically improved and S/P treatment for pneumonia C. diff associated diarrhea, clinically improving CAD S/P CABG ESRD on HD history of lymphadenopathy Plan S/P Meropenem; continue PO Vancomycin (day 13) - patient is improving with the increased dose of 500 mg q6 and will give up to 14 days total (ie. 1 more day) and will continue to observe
[2016-05-05] MEDS ORDERED: Tmp-Smz 800 mg-160 mg DS Tab PO SCH (20:00)
[2016-05-05] MEDS: oxyCODONE 5 mg Immediate Release Tab PO PRN (21:23)
[2016-05-06] MEDS: oxyCODONE 5 mg Immediate Release Tab PO PRN ×3 (03:30→22:01)
[2016-05-06 07:14] LABS: INR 1.3 (0.93-1.08)
--- NOTE | 2016-05-06 08:48 | CON ---
DATE: 05/05/2016 This is the patient's hospital visit on the TCU. For Dr. Latham. CHIEF COMPLAINT: Deconditioning/left upper extremity DVT. HISTORY OF PRESENT ILLNESS: The patient is a 50-year-old male with heroin, cocaine, alcohol abuse, l iver cirrhosis, ascites, status post CABG, found unconscious recently, brought to the hospital with c onsideration for heroin overdose with Narcan given with the patient then known to be hypoxic with int ubation, aspiration pneumonia with chest tube placed on the right, then ascites tapped for paracentes is with left upper extremity deep venous thrombosis, started on argatroban with transition to Coumadi n. C. difficile enterocolitis was also treated and the patient on dialysis for his chronic kidney di sease. He is presently resting comfortably on TCU, participating with reconditioning, requesting fred n medicines. ALLERGIES: No known allergies. MEDICATIONS: Include the Ativan, Coumadin, DuoNeb, Enulose, nicotine patch, Pepcid, PhosLo, midodrin e, vancomycin, oxycodone. PAST MEDICAL HISTORY: As above. FAMILY HISTORY AND SOCIAL HISTORY: As above. REVIEW OF SYSTEMS: Essentially negative to questioning except as above. OBJECTIVE AND PHYSICAL EXAMINATION: VITAL SIGNS: Temperature 97, pulse 59, respirations 18, blood pressure 92/68, pulse ox 94%. HEENT: Unremarkable. NECK: Supple. HEART: Regular rate, occasional ectopic beat. LUNGS: Status post chest tube on the right, minimal decreased breath sounds. ABDOMEN: Soft, nontender. EXTREMITIES: No edema. SKIN: Warm, dry, clear, tattooed. NEUROLOGIC: Awake and alert. LABORATORIES: Were done, white blood cell count of 8.5, hemoglobin 10.8, hematocrit 32.5, platelet c ount of 128,000 with an INR of 1.30, for which he will receive an extra dose of 1 mg of Coumadin toda y making a total dose of 2 mg today. Chem panel: BUN of 98, creatinine of 7.2, total protein 4.7. ASSESSMENT: Deconditioning, history of septic shock, status post treatment, chronic kidney disease w ith dialysis, thrombocytopenia, improved, subacute thrombus left internal jugular vein on Coumadin, a spiration pneumonia, Clostridium difficile enterocolitis, right-sided chest tube for pneumothorax, no w withdrawn, cirrhosis of the liver, ascites, intravenous drug abuse, history of hepatic encephalopat hy, alcoholism, hepatitis C positivity, history of respiratory failure. PLAN: To continue his present medical regimen to get his Coumadin therapeutic at an INR of 2-3 with prognosis for this patient guarded. We will monitor clinically and with labs. Jose Alejandro Miles MD cc: [phone] TT: 05/06/2016 08:48:00 Confirmation # [id number] Dictation # [id number]
[2016-05-06] MEDS: Vancomycin 25 MG/ML PO SCH ×2 (10:44→14:33)
[2016-05-06] MEDS ORDERED: Sodium Chloride 0.9% 500 ML IV STA (11:41)
--- NOTE | 2016-05-06 14:17 | PN ---
DATE: 05/06/2016 Hospital visit on TCU. For Dr. Latham. SUBJECTIVE: The patient is a 50-year-old male known to abuse heroin, cocaine, alcohol, diagnosed wit h cirrhosis, ascites, status post a CABG, recently found unconscious, brought to the hospital for her oin overdose with Narcan given. The patient noted to be hypoxic with intubation, aspiration pneumoni a with right chest tube placed and discontinued, paracentesis tap for ascites with the patient known to have a DVT in the subacute thrombus, left internal jugular vein, on anticoagulation with argatroba n, transitioned now to Coumadin with the INR not therapeutic. We will monitor him clinically for thi s. The patient is also on dialysis for chronic kidney disease, is on TCU, participating with [employer] , also history of Clostridium difficile enterocolitis. OBJECTIVE: PHYSICAL EXAMINATION: VITAL SIGNS: Temperature 98.1, pulse 79, respirations 20, blood pressure 74/44, pulse ox 92%. HEENT: Unremarkable. NECK: Supple. HEART: Regular rate, occasional ectopic beat. LUNGS: Status post chest tube on the right, minimal decreased breath sounds. ABDOMEN: Soft, nontender. EXTREMITIES: No edema. SKIN: Warm, dry and tattooed. LABORATORY DATA: The patient's labs were done with an INR today of 1.30, previous IN[facility] 1.30 [facility]. His other labs were not ordered. They will be ordered for the morning, as per his primary do ctor, to be checked. ASSESSMENT: Deconditioning, history of septic shock, status post effective treatment, chronic kidney disease on dialysis, thrombocytopenia improved, subacute thrombus left internal jugular vein, on Cou madin, history of aspiration pneumonia with right-sided chest tube for pneumothorax, Clostridium diff icile enterocolitis, cirrhosis of the liver, ascites, IV drug abuse, history of hepatic encephalopath y, alcoholism, hepatitis C positivity, history of respiratory failure, status post extubation. PLAN: As per his primary doctors, we will continue present medical regimen with Coumadin increased t o 2 mg a day as per Dr. Latham's recommendation with monitoring of his INR. Continue present medica l regimen as per his attending doctor and infectious disease consultants. Jose Alejandro Miles MD cc: [phone] TT: 05/06/2016 14:16:16 Confirmation # [id number] Dictation # [id number] rn
--- NOTE | 2016-05-06 14:27 | CP.PCM.PN ---
<Leonel Pierre - Last Filed: 05/06/16 14:20> Subjective - Date & Time of Evaluation Date of Evaluation: 05/06/16 Time of Evaluation: 14:21 - Subjective Subjective: Pt seen and examined at bedside. Pt doing well with no acute overnight events. Pt had BP of 77/42 earlier this morning. Pt was asymptomatic with no complaints. Tolerating diet well, BM's more formed. Denies CP, SOB, N/V/D. Objective - Vital Signs/Intake and Output Vital Signs (last 24 hours): Temp Pulse Resp BP Pulse Ox 98.1 F 79 20 74/44 L 92 L 05/06/16 10:00 05/06/16 10:00 05/06/16 10:00 05/06/16 10:00 05/06/16 10:00 Intake and Output: 05/06/16 05/06/16 06:59 18:59 Intake Total 300 Balance 300 - Medications Medications: Current Medications Albuterol/Ipratropium (Duoneb 3 Mg/0.5 Mg (3 Ml) Ud) 3 ml IH [id number] PRN PRN Reason: Shortness of Breath Calcium Acetate (Phoslo) 667 mg PO WM REPLACED BY [facility] Last Admin: 05/06/16 11:51 Dose: 667 mg Famotidine (Pepcid) 40 mg PO HS REPLACED BY [facility] Last Admin: 05/05/16 21:29 Dose: 40 mg Lactulose (Enulose) 20 gm PO DAILY REPLACED BY [facility] Last Admin: 05/06/16 10:43 Dose: 20 gm Lorazepam (Ativan) 1 mg PO Q6H PRN; Protocol PRN Reason: Agitation Last Admin: 05/05/16 21:23 Dose: 1 mg Midodrine (Proamatine) 10 mg PO TID REPLACED BY [facility] Last Admin: 05/06/16 10:44 Dose: 10 mg Nicotine (Nicoderm Cq) 1 patch TD DAILY REPLACED BY [facility] Last Admin: 05/06/16 10:43 Dose: 1 patch Oxycodone HCl (Oxycodone Immediate Release Tab) 5 mg PO Q6H PRN; Protocol PRN Reason: Pain, severe (8-10) Last Admin: 05/06/16 03:30 Dose: 5 mg Vancomycin HCl (Vancocin 25 Mg/Ml (Oral Use)) 500 mg PO QID SIMON PRN Reason: Protocol Last Admin: 05/06/16 10:44 Dose: 500 mg Warfarin Sodium (Coumadin) 2 mg PO 1800 SIMON PRN Reason: Protocol - Labs Labs: 05/05/16 14:05 05/05/16 14:05 PT 14.0 Seconds (9.9-11.8) H 05/06/16 06:00 INR 1.30 (0.93-1.08) H 05/06/16 06:00 - Constitutional Appears: Well, No Acute Distress - Head Exam Head Exam: ATRAUMATIC, NORMAL INSPECTION, NORMOCEPHALIC - Respiratory Exam Respiratory Exam: Clear to Ausculation Bilateral, NORMAL BREATHING PATTERN. absent: Rhonchi, Wheezes - Cardiovascular Exam Cardiovascular Exam: RRR, +S1, +S2 - GI/Abdominal Exam GI & Abdominal Exam: Soft, Normal Bowel Sounds. absent: Tenderness - Extremities Exam Extremities Exam: Normal Inspection. absent: Calf Tenderness, Pedal Edema - Neurological Exam Neurological Exam: Alert, Awake, Oriented x3 - Psychiatric Exam Psychiatric exam: Normal Affect, Normal Mood - Skin Skin Exam: Intact, Normal Color, Warm Assessment and Plan - Assessment and Plan (Free Text) Plan: 50 y/o with PMH of alcohol abuse, cocaine and heroine abuse, ascites with liver cirrhosis, ESRD (HD on , , and Monday), CAD with CABG presents to the TCU for further treatment and physical therapy after prolonged hospital stay. Pt underwent paracentesis yesterday and refused dialysis. His dialysis session has been rescheduled tomorrow to resume his weekly schedule. Pt was also given 500 cc bolus for BP. Continue to monitor BP. Pt will continue to work with physical therapy. 1. C. Diff colitis - Finishing vancomycin today. - Monitor for loose stools 2. Left upper extremity clot - Warfarin 1 mg daily resumed - Will check INR daily 3. Hypotension - Midodrine - Fluid bolus for hypotension again today 4. Ascites - S/p Paracentesis - Monitor for re-accumulation of ascites - Awaiting fluid analysis - Pain medication, oxycodone - Lactulose for hepatic encephalopathy ppx 5. PPX - Zofran - PPX Seen, reviewed, and discussed with attending. Gabby, PGY-1 <Rich RILEY,Luis - Last Filed: 05/06/16 16:28> Objective - Vital Signs/Intake and Output Vital Signs (last 24 hours): Temp Pulse Resp BP Pulse Ox 98.1 F 79 20 74/44 L 92 L 05/06/16 10:00 05/06/16 10:00 05/06/16 10:00 05/06/16 10:00 05/06/16 10:00 Intake and Output: 05/06/16 05/06/16 06:59 18:59 Intake Total 300 Balance 300 - Medications Medications: Current Medications Albuterol/Ipratropium (Duoneb 3 Mg/0.5 Mg (3 Ml) Ud) 3 ml IH [id number] PRN PRN Reason: Shortness of Breath Calcium Acetate (Phoslo) 667 mg PO WM REPLACED BY [facility] Last Admin: 05/06/16 11:51 Dose: 667 mg Famotidine (Pepcid) 40 mg PO HS REPLACED BY [facility] Last Admin: 05/05/16 21:29 Dose: 40 mg Lactulose (Enulose) 20 gm PO DAILY REPLACED BY [facility] Last Admin: 05/06/16 10:43 Dose: 20 gm Lorazepam (Ativan) 1 mg PO Q6H PRN; Protocol PRN Reason: Agitation Last Admin: 05/05/16 21:23 Dose: 1 mg Midodrine (Proamatine) 10 mg PO TID REPLACED BY [facility] Last Admin: 05/06/16 14:32 Dose: 10 mg Nicotine (Nicoderm Cq) 1 patch TD DAILY REPLACED BY [facility] Last Admin: 05/06/16 10:43 Dose: 1 patch Oxycodone HCl (Oxycodone Immediate Release Tab) 5 mg PO Q6H PRN; Protocol PRN Reason: Pain, severe (8-10) Last Admin: 05/06/16 14:31 Dose: 5 mg Vancomycin HCl (Vancocin 25 Mg/Ml (Oral Use)) 500 mg PO QID REPLACED BY [facility] PRN Reason: Protocol Last Admin: 05/06/16 14:33 Dose: 500 mg Warfarin Sodium (Coumadin) 2 mg PO 1800 REPLACED BY [facility] PRN Reason: Protocol - Labs Labs: 05/05/16 14:05 05/05/16 14:05 PT 14.0 Seconds (9.9-11.8) H 05/06/16 06:00 INR 1.30 (0.93-1.08) H 05/06/16 06:00 Attending/Attestation - Attestation I have personally seen and examined this patient.: Yes I have fully participated in the care of the patient.: Yes I have reviewed all pertinent clinical information, including history, physical exam and plan: Yes Notes (Text): Patient was seen and examined with biomedical engineering internship .Agreed with resident assessment and plan. 50 Yrs old male with ESRD on HD, Chronic liver disease, Ascites, Left IJV DVT, SP treatment for HCAP Pneumonia, C diff colitis. His blood pressure was low this morning, but he is asymptometic.He refused his dialysis yesterday but in fluid overload.He is not hyperkalemic. The issue of compliance with dialysis and compl;iance with medication was discussed in detail. Management plan was discussed in detail with patient Education was provided. Prognosis is guarded.
--- NOTE | 2016-05-06 16:57 | CP.PCM.PN ---
Subjective - Date & Time of Evaluation Date of Evaluation: 05/06/16 Time of Evaluation: 10:10 - Subjective Subjective: Comfortable, afebrile, not in distress, stools are formed. Objective - Vital Signs/Intake and Output Vital Signs (last 24 hours): Temp Pulse Resp BP Pulse Ox 97.1 F L 86 20 78/52 L 91 L 05/06/16 16:00 05/06/16 16:00 05/06/16 16:00 05/06/16 16:00 05/06/16 16:00 Intake and Output: 05/06/16 05/06/16 06:59 18:59 Intake Total 300 Balance 300 - Medications Medications: Current Medications Albuterol/Ipratropium (Duoneb 3 Mg/0.5 Mg (3 Ml) Ud) 3 ml IH [id number] PRN PRN Reason: Shortness of Breath Calcium Acetate (Phoslo) 667 mg PO WM PENDING SALE TO [facility] Last Admin: 05/06/16 11:51 Dose: 667 mg Famotidine (Pepcid) 40 mg PO HS PENDING SALE TO [facility] Last Admin: 05/05/16 21:29 Dose: 40 mg Lactulose (Enulose) 20 gm PO DAILY PENDING SALE TO [facility] Last Admin: 05/06/16 10:43 Dose: 20 gm Lorazepam (Ativan) 1 mg PO Q6H PRN; Protocol PRN Reason: Agitation Last Admin: 05/05/16 21:23 Dose: 1 mg Midodrine (Proamatine) 10 mg PO TID [facility]END[facility] S[facility] TO [facility] Last Admin: 05/06/16 14:32 Dose: 10 mg Nicotine (Nicoderm Cq) 1 patch TD DAILY PENDING SALE TO [facility] Last Admin: 05/06/16 10:43 Dose: 1 patch Oxycodone HCl (Oxycodone Immediate Release Tab) 5 mg PO Q6H PRN; Protocol PRN Reason: Pain, severe (8-10) Last Admin: 05/06/16 14:31 Dose: 5 mg Vancomycin HCl (Vancocin 25 Mg/Ml (Oral Use)) 500 mg PO QID [facility] PRN Reason: Protocol Last Admin: 05/06/16 14:33 Dose: 500 mg Warfarin Sodium (Coumadin) 2 mg PO 1800 [facility] PRN Reason: Protocol - Labs Labs: 05/05/16 14:05 05/05/16 14:05 PT 14.0 Seconds (9.9-11.8) H 05/06/16 06:00 INR 1.30 (0.93-1.08) H 05/06/16 06:00 - Constitutional Appears: Non-toxic, No Acute Distress - Head Exam Head Exam: NORMAL INSPECTION - ENT Exam ENT Exam: Mucous Membranes Moist - Neck Exam Neck Exam: absent: Meningismus - Respiratory Exam Respiratory Exam: Decreased Breath Sounds - Cardiovascular Exam Cardiovascular Exam: +S1, +S2 - GI/Abdominal Exam GI & Abdominal Exam: Soft. absent: Tenderness Assessment and Plan - Assessment and Plan (Free Text) Plan: Assessment S/P Septic shock with multiorgan dysfunction syndrome (MODS) with acute toxic- metabolic encephalopathy, chronic renal failure, hypoxic respiratory failure (S/ P ventilator-dependence) with probable right sided severe healthcare-associated pneumonia with Klebsiella (ESBL-producing, multidrug-resistant) with pleural effusion S/P chest tube placement POD #14 in a patient who possibly overdosed on heroin (now the chest tube has been removed); patient has clinically improved and S/P treatment for pneumonia C. diff associated diarrhea, clinically improved CAD S/P CABG ESRD on HD history of lymphadenopathy Plan S/P Meropenem; on PO Vancomycin (day 14) - patient has improved - will d/c antibiotics and observe Will follow clinically
[2016-05-07 07:51] LABS: BASO # 0.01 K/mm3 (0.0-2.0); BASO % 0.1 % (0.0-3.0); EOS # 0.3 (0.0-0.7); EOS % 3.1 % (1.5-5.0); GRAN # 6.41 (1.4-6.5); GRAN % 80.4 % (50.0-68.0); HEMATOCRIT 30.3 % (42.0-52.0); LYMPH # 0.8 (1.2-3.4); LYMPH % 9.4 % (22.0-35.0); MEAN CELL VOLUME 90.2 fL (80.0-105.0); MEAN CORPUSCULAR HEMOGLOBIN 29.8 pg (25.0-35.0); MEAN PLATELET VOLUME 11.2 fl (7.0-11.0); MONO # 0.6 (0.1-0.6); PLATELET COUNT 111 10^3/uL (120.0-450.0); RED CELL DISTRIBUTION WIDTH 16.5 % (11.5-14.5)
[2016-05-07 07:55] LABS: INR 1.5 (0.93-1.08)
[2016-05-07 07:58] LABS: ADD MANUAL DIFF? NO
[2016-05-07 07:59] LABS: ALB/GLOB RATIO 0.9 (1.1-1.8); BILIRUBIN,TOTAL 0.7 mg/dL (0.2-1.3); TOTAL PROTEIN 4.3 g/dL (5.8-8.3)
[2016-05-07 08:17] LABS: CALCIUM 6.6 mg/dL (8.4-10.5)
[2016-05-07 08:47] LABS: POTASSIUM 6.1 mmol/L (3.6-5.0)
[2016-05-07] MEDS ORDERED: Insulin Regular 1 UNITS/0.01 ML ML IV STA (08:50)
[2016-05-07] MEDS ORDERED: Dextrose 50% SYRINGE Inj (50 ml) IVP STA (08:50)
[2016-05-07] MEDS ORDERED: Sod Polystyrene Sulf 15 gm/60 ml Oral Susp PO ONE (08:52)
[2016-05-07] MEDS ORDERED: Sodium Chloride 0.9% 500 ML IV STA (08:57)
[2016-05-07] MEDS ORDERED: Albuterol 0.5% Inhal Sol (2.5 mg/0.5 ml) UD IH SCH (09:00)
--- NOTE | 2016-05-07 12:49 | PN ---
DATE: 05/07/2016 The patient was seen earlier this morning in room 319. No fevers and chills. PHYSICAL EXAMINATION: VITAL SIGNS: Temperature is 98. Blood pressure 78/50, respiratory rate of 20, heart rate of 86. HEENT: Unremarkable. NECK: Supple. LUNGS: Have decreased breath sounds. HEART: Normal S1, S2. ABDOMEN: Soft, nontender. LABORATORY DATA: Reveals a white count of 8000, hemoglobin of 10, platelets of 111. Urinalysis is n oted. Chemistries are noted. Review of orders reveals the patient to be off of antibiotics. ASSESSMENT AND PLAN: This is a 50-year-old male status post septic shock, multiorgan dysfunction, ac [place] toxic metabolic encephalopathy, chronic renal failure, hypoxic respiratory failure, status post v entilatory dependence, probable right-sided severe healthcare-associated pneumonia with extended-spec trum beta-lactamase Klebsiella producing multidrug resistant with pleural effusion and a chest tube p lacement, post-procedure day #15 in a patient who possibly overdosed on heroin. Chest tube has been removed. Currently, off of antibiotics, afebrile, appears to be improving. We will follow with you. The patient is at risk for developing nosocomial infection. Krystian Young MD cc: [phone] TT: 05/07/2016 12:48:41 Confirmation # [id number] Dictation # [id number] lobo
--- NOTE | 2016-05-07 14:27 | PN ---
DATE: 05/07/2016 Hospital visit on the TCU floor. For Dr. Latham. SUBJECTIVE: The patient is a 50-year-old male with known history of abusing heroin, cocaine and alco hol, diagnosed with cirrhosis, ascites, status post CABG, now here for reconditioning, status post in tubation with right chest tube withdrawn for pneumothorax, known to have a subacute thrombus left int ernal jugular vein on Coumadin, which is gingerly being increased as per his INR. He is otherwise fe eling better today, in no acute distress, for dialysis due to his chronic kidney disease, on dialysis . OBJECTIVE: PHYSICAL EXAMINATION: VITAL SIGNS: Today, temperature 97.8, pulse 86, respirations 18, blood pressure 82/55, pulse ox 94%. HEENT: Unremarkable. NECK: Supple. HEART: Tachy rate, regular rhythm. LUNGS: Occasional rhonchi in the right. ABDOMEN: Soft. Minimal vague generalized tenderness. EXTREMITIES: No edema. SKIN: Warm, dry, clear and tattooed. LABORATORY DATA: The patient's labs were done. White blood cell count of 8.0, hemoglobin 10.0, tran tocrit of 30.3, platelet count of 111,000 with a chem metabolic panel showing a potassium of 6.1, BUN of 127, creatinine of 8.7, for dialysis today. His INR was 1.5 today. ASSESSMENT: Deconditioning, history of septic shock, chronic kidney disease for dialysis today, hype rkalemia to be addressed during dialysis, thrombocytopenia improved, subacute thrombus left internal jugular vein on Coumadin being adjusted, history of pneumothorax, history of Clostridium difficile en terocolitis, cirrhosis of the liver, status post extubation, hepatic encephalopathy, positive drug ab use history. PLAN: As per Dr. Latham, continue his present medical regimen. We will monitor the INR and keep hi m at 2 mg of Coumadin on a daily basis with adjustment in the future as indicated; however, to do thi s gingerly. We will monitor clinically and with labs. Jose Alejandro Miles MD cc: [phone] TT: 05/07/2016 14:26:42 Confirmation # [id number] Dictation # [id number] rn
--- NOTE | 2016-05-07 14:29 | CARD ---
APPROVED REPORT EKG Measurement Heart [id number] <Conclusion> Normal sinus rhythm Rightward axis Low voltage QRS Borderline ECG
--- NOTE | 2016-05-07 16:18 | CP.PCM.PN ---
<TheresaJerry - Last Filed: 05/07/16 16:06> Subjective - Date & Time of Evaluation Date of Evaluation: 05/07/16 Time of Evaluation: 10:00 - Subjective Subjective: Medicine Progress note. Dr Villanueva Pt seen and examined at bedside. Patient was slightly hypotensive overnight into 70s systolic. Patient was requesting pain medication and was denied due to hypotension. Currently denies any new complaints. Diarrhea improved. No F/C. No CP/SOB. No new complaints. Objective - Vital Signs/Intake and Output Vital Signs (last 24 hours): Temp Pulse Resp BP Pulse Ox 97.8 F 111 H 18 82/55 L 94 L 05/07/16 10:00 05/07/16 10:00 05/07/16 10:00 05/07/16 10:00 05/07/16 10:00 Intake and Output: 05/07/16 05/07/16 06:59 18:59 Intake Total 420 Balance 420 - Medications Medications: Current Medications Albuterol Sulfate (Albuterol 0.5% Inhal Ciara (2.5 Mg/0.5 Ml) Ud) 2.5 mg IH Q15MIN [facility] Stop: 05/09/16 09:01 Albuterol/Ipratropium (Duoneb 3 Mg/0.5 Mg (3 Ml) Ud) 3 ml IH [id number] PRN PRN Reason: Shortness of Breath Calcium Acetate (Phoslo) 667 mg PO WM [facility] Last Admin: 05/07/16 12:55 Dose: 667 mg Famotidine (Pepcid) 40 mg PO HS [facility] Last Admin: 05/06/16 22:02 Dose: 40 mg Lactulose (Enulose) 20 gm PO DAILY [facility] Last Admin: 05/07/16 11:06 Dose: 20 gm Lorazepam (Ativan) 1 mg PO Q6H PRN; Protocol PRN Reason: Agitation Last Admin: 05/05/16 21:23 Dose: 1 mg Midodrine (Proamatine) 10 mg PO TID [facility] Last Admin: 05/07/16 14:28 Dose: 10 mg Nicotine (Nicoderm Cq) 1 patch TD DAILY [facility] Last Admin: 05/07/16 11:05 Dose: 1 patch Oxycodone HCl (Oxycodone Immediate Release Tab) 5 mg PO Q6H PRN; Protocol PRN Reason: Pain, severe (8-10) Last Admin: 05/06/16 22:01 Dose: 5 mg Warfarin Sodium (Coumadin) 2 mg PO 1800 [facility] PRN Reason: Protocol Last Admin: 05/06/16 18:06 Dose: 2 mg - Labs Labs: 05/07/16 07:40 05/07/16 15:10 PT 16.2 Seconds (9.9-11.8) H 05/07/16 07:40 INR 1.50 (0.93-1.08) H 05/07/16 07:40 - Constitutional Appears: Well, No Acute Distress - Head Exam Head Exam: ATRAUMATIC, NORMAL INSPECTION, NORMOCEPHALIC - Eye Exam Eye Exam: EOMI, Normal appearance, PERRL. absent: Scleral icterus Pupil Exam: PERRL - ENT Exam ENT Exam: Mucous Membranes Moist - Neck Exam Neck Exam: Full ROM, Normal Inspection - Respiratory Exam Respiratory Exam: Clear to Ausculation Bilateral, Respiratory Distress, NORMAL BREATHING PATTERN. absent: Wheezes - Cardiovascular Exam Cardiovascular Exam: REGULAR RHYTHM, RRR, +S1, +S2. absent: JVD - GI/Abdominal Exam GI & Abdominal Exam: Distended, Soft, Normal Bowel Sounds. absent: Tenderness - Extremities Exam Extremities Exam: Full ROM, Normal Inspection. absent: Calf Tenderness - Back Exam Back Exam: NORMAL INSPECTION - Neurological Exam Neurological Exam: Alert, Awake, Oriented x3 - Psychiatric Exam Psychiatric exam: Normal Affect, Normal Mood - Skin Skin Exam: Dry, Intact, Normal Color, Warm Assessment and Plan - Assessment and Plan (Free Text) Assessment: 50 y/o M with PMH of alcohol abuse, cocaine and heroine abuse, ascites with liver cirrhosis, ESRD (HD on , , and Monday), CAD with CABG presents to the TCU for further treatment and physical therapy after prolonged hospital stay. Pt underwent paracentesis on 05/05 and refused dialysis on that day. He is also with Hypokalemia to 6.1 this morning, was given albuterol neb x3, kaexalate , Insulin 5U IV, D50 25ml. EKG with no acute changes. Patient will go for dialysis today 05/07. 1. C. Diff colitis - improved - Finished course of vancomycin - Monitor for loose stools 2. Left upper extremity clot - increased Warfarin 2 mg daily - INR 1.5 today (05/07) - continue to check INR daily 3. Hypotension - continue Midodrine - Fluid bolus 500cc for hypotension prn 4. Hypokalemia in the setting of missed dialysis on 05/05 K 6.2 this morning - Kayexalate - Insulin 5U, D50 25ml - EKG - no changes - Albuterol neb x3 p27hhum - To dialysis today. 5. Ascites - S/p Paracentesis 05/05 - Monitor for re-accumulation of ascites - Awaiting fluid analysis - Pain medication, oxycodone - Lactulose for hepatic encephalopathy ppx 6. PPX - Pepcid 40mg PO HS - on warfarin, no DVT ppx necessary. Discussed case with Dr. Rich Cardenas [phone] <Rich RILEY,[email or web address] - Last Filed: 05/07/16 17:12> Objective - Vital Signs/Intake and Output Vital Signs (last 24 hours): Temp Pulse Resp BP Pulse Ox 97.8 F 111 H 18 82/55 L 94 L 05/07/16 10:00 05/07/16 10:00 05/07/16 10:00 05/07/16 10:00 05/07/16 10:00 Intake and Output: 05/07/16 05/07/16 06:59 18:59 Intake Total 420 Balance 420 - Medications Medications: Current Medications Albuterol Sulfate (Albuterol 0.5% Inhal Ciara (2.5 Mg/0.5 Ml) Ud) 2.5 mg IH Q15MIN [facility] Stop: 05/09/16 09:01 Albuterol/Ipratropium (Duoneb 3 Mg/0.5 Mg (3 Ml) Ud) 3 ml IH [id number] PRN PRN Reason: Shortness of Breath Calcium Acetate (Phoslo) 667 mg PO WM [facility] Last Admin: 05/07/16 12:55 Dose: 667 mg Famotidine (Pepcid) 40 mg PO HS [facility] Last Admin: 05/06/16 22:02 Dose: 40 mg Lactulose (Enulose) 20 gm PO DAILY [facility] Last Admin: 05/07/16 11:06 Dose: 20 gm Lorazepam (Ativan) 1 mg PO Q6H PRN; Protocol PRN Reason: Agitation Last Admin: 05/05/16 21:23 Dose: 1 mg Midodrine (Proamatine) 10 mg PO TID [facility] Last Admin: 05/07/16 14:28 Dose: 10 mg Nicotine (Nicoderm Cq) 1 patch TD DAILY [facility] Last Admin: 05/07/16 11:05 Dose: 1 patch Oxycodone HCl (Oxycodone Immediate Release Tab) 5 mg PO Q6H PRN; Protocol PRN Reason: Pain, severe (8-10) Last Admin: 05/06/16 22:01 Dose: 5 mg Warfarin Sodium (Coumadin) 2 mg PO 1800 [facility]ON PRN Reason: Protocol Last Admin: 05/06/16 18:06 Dose: 2 mg - Labs Labs: 05/07/16 07:40 05/07/16 15:10 PT 16.2 Seconds (9.9-11.8) H 05/07/16 07:40 INR 1.50 (0.93-1.08) H 05/07/16 07:40 Attending/Attestation - Attestation I have personally seen and examined this patient.: Yes I have fully participated in the care of the patient.: Yes I have reviewed all pertinent clinical information, including history, physical exam and plan: Yes Notes (Text): Patient was seen and examined with director biomedical engineering .Agreed with resident assessment and plan. 50 y/o M with PMH of alcohol abuse, cocaine and heroine abuse, ascites with liver cirrhosis, ESRD (HD on , , and Monday), CAD with CABG presents to the TCU for further treatment and physical therapy after prolonged hospital stay. Pt underwent paracentesis on 05/05 and refused dialysis on that day, was found to be hyperkalemia this morning, was treated for hyperkalemia.patient underwent dialysis , repeat Potassium is back to normal. Patient has low blood pressure but he is asymptometic, alert,awake and oriented, His Blood pressure always runns low 75-85 systolic and is on Midodrine. Prognosis is guarded. Management plan was discussed in detail with patient Education was provided.
[2016-05-07 18:40] LABS: POTASSIUM 3.7 mmol/L (3.6-5.0)
[2016-05-07 18:55] LABS: CALCIUM 6.7 mg/dL (8.4-10.5)
[2016-05-08] MEDS: oxyCODONE 5 mg Immediate Release Tab PO PRN ×2 (05:33→22:39)
[2016-05-08 07:52] LABS: HEMATOCRIT 27.6 % (42.0-52.0); MEAN CELL VOLUME 89.9 fL (80.0-105.0); MEAN CORPUSCULAR HGB CONC 33.3 g/dl (31.0-37.0); MEAN PLATELET VOLUME 11.6 fl (7.0-11.0); RED CELL DISTRIBUTION WIDTH 16.6 % (11.5-14.5); WHITE BLOOD COUNT 6.7 10^3/ul (4.5-11.0)
[2016-05-08 08:10] LABS: INR 2.47 (0.93-1.08)
[2016-05-08 08:19] LABS: POTASSIUM 4.5 mmol/L (3.6-5.0)
[2016-05-08 08:45] LABS: CALCIUM 6.3 mg/dL (8.4-10.5)
--- NOTE | 2016-05-08 10:03 | PN ---
DATE: 05/08/2016 The patient is in bed in no acute distress, nontoxic, no fevers. PHYSICAL EXAMINATION: VITAL SIGNS: Temperature is 97. Blood pressure is 82/50, respiratory rate of 18, heart rate of 111. HEENT: Unremarkable. NECK: Supple. LUNGS: Have decreased breath sounds. HEART: Normal S1, S2. ABDOMEN: Soft, nontender. No organomegaly, no rebound, no guarding. LABORATORY EXAMINATION: Reveals a white count of 6.7, hemoglobin of 9, platelets of 104. Coagulatio n is noted. Chemistries reveal the BUN of 70, creatinine of 5.4. ASSESSMENT AND PLAN: This is a 50-year-old male with septic shock, multiorgan dysfunction, acute tox ic metabolic encephalopathy, chronic renal failure, and hypoxic respiratory failure, status post vent ilatory dependence, probable right-sided severe healthcare-associated pneumonia, extended-spectrum be ta-lactamase, Klebsiella producing multidrug resistant and pleural effusion, and chest tube placement , post-procedure day #16 in a patient with a possible overdose on heroin, and chest tube has been rem [place]. Currently off of antibiotics, afebrile. Review of the orders reveals the patient to be on 2 mg of Coumadin, off of antibiotics, at risk for d eveloping nosocomial infections. Krystian Young MD cc: [phone] TT: 05/08/2016 10:02:35 Confirmation # [id number] Dictation # [id number] yung
[2016-05-08] MEDS ORDERED: Albuterol 0.5% Inhal Sol (2.5 mg/0.5 ml) UD IH SCH (18:30)
--- NOTE | 2016-05-08 20:23 | PN ---
DATE: 05/08/2016 This is the patient's hospital visit on the TCU floor. For Dr. Latham. SUBJECTIVE: The patient is a 50-year-old male now sitting up in a chair, leaning forward, reporting to be in no acute distress with the patient's room with the door closed with the heat on, with the pa tient reporting he feels better when the heat is on. He is known to have abused heroin, cocaine and alcohol, has a diagnosis of cirrhosis with ascites, status post CABG with chronic kidney disease on d ialysis, status post intubation with right chest tube, recently discontinued for pneumothorax with a subacute thrombus in the left internal jugular vein, on Coumadin. Otherwise, the patient is now rest ing comfortably, denying any complaint at this time. PHYSICAL EXAMINATION: VITAL SIGNS: Temperature 98.1, pulse 90, respirations 18, blood pressure 75/49, pulse ox 98%. HEENT: Unremarkable. NECK: Supple. HEART: Regular rate. LUNGS: Rare rhonchi right. ABDOMEN: Soft. Minimal vague generalized tenderness. EXTREMITIES: No edema. SKIN: Warm, dry. LABORATORY DATA: The patient's labs were done: White blood cell count 6.7, hemoglobin 9.2, hematocr it 27.6, platelet count of 104,000 with a chem metabolic panel showing a calcium of 6.3, BUN of 70, c reatinine of 5.4 post-dialysis. His INR today is 2.47. ASSESSMENT: Deconditioning, history of septic shock, chronic kidney disease on dialysis, hyperkalemi a, corrected; thrombocytopenia, improved; subacute thrombus left internal jugular vein on Coumadin, w hich is now therapeutic; history of pneumothorax, history of Clostridium difficile enterocolitis, cir rhosis to the liver, status post extubation, hepatic encephalopathy, positive drug abuse history. PLAN: The patient is to continue present medical regimen, to keep the INR between 2 and 3, therapeut ic, as per Dr. Latham's recommendation with Dr. Luis Villanueva now adjusting his Coumadin to 1.5 mg per day. Monitoring of his INR will continue with the patient to continue care as per his primary do ctors'. We will sign off with reconsult as indicated. Jose Alejandro Ginger RILEY cc: [phone] TT: 05/08/2016 20:22:49 Confirmation # [id number] Dictation # [id number] dn
--- NOTE | 2016-05-09 09:19 | CP.PCM.PN ---
Subjective - Date & Time of Evaluation Date of Evaluation: 05/09/16 Time of Evaluation: 09:14 - Subjective Subjective: Pt seen and examined at bedside. No acute events overnight as per nursing. Pt complains this morning of leg pain, which he has chronically. He states pain medication is no longer controlling his pain. Denies CP, SOB, N/V/D. Objective - Vital Signs/Intake and Output Vital Signs (last 24 hours): Temp Pulse Resp BP Pulse Ox 98.1 F 90 18 75/49 L 98 05/08/16 16:00 05/08/16 16:00 05/08/16 16:00 05/08/16 16:00 05/08/16 16:00 - Medications Medications: Current Medications Albuterol/Ipratropium (Duoneb 3 Mg/0.5 Mg (3 Ml) Ud) 3 ml IH [id number] PRN PRN Reason: Shortness of Breath Calcium Acetate (Phoslo) 667 mg PO WM [facility] PRN Reason: Protocol Last Admin: 05/09/16 08:12 Dose: 667 mg Famotidine (Pepcid) 40 mg PO HS [facility] PRN Reason: Protocol Last Admin: 05/08/16 22:35 Dose: 40 mg Lactulose (Enulose) 20 gm PO DAILY [facility] PRN Reason: Protocol Lorazepam (Ativan) 1 mg PO Q6H PRN; Protocol PRN Reason: Agitation Last Admin: 05/09/16 03:05 Dose: 1 mg Midodrine (Proamatine) 10 mg PO TID [facility] Last Admin: 05/08/16 17:15 Dose: 10 mg Nicotine (Nicoderm Cq) 1 patch TD DAILY [facility] PRN Reason: Protocol Oxycodone HCl (Oxycodone Immediate Release Tab) 5 mg PO Q6H PRN; Protocol PRN Reason: Pain, severe (8-10) Last Admin: 05/08/16 22:39 Dose: 5 mg Warfarin Sodium (Coumadin) 1.5 mg PO 1800 [facility] PRN Reason: Protocol Last Admin: 05/08/16 17:16 Dose: 1.5 mg - Labs Labs: 05/08/16 07:40 05/08/16 07:40 PT 26.7 Seconds (9.9-11.8) H 05/08/16 07:40 INR 2.47 (0.93-1.08) H 05/08/16 07:40 - Constitutional Appears: Well, No Acute Distress - Head Exam Head Exam: ATRAUMATIC, NORMAL INSPECTION, NORMOCEPHALIC - ENT Exam ENT Exam: Mucous Membranes Moist, Normal Exam - Respiratory Exam Respiratory Exam: Clear to Ausculation Bilateral, NORMAL BREATHING PATTERN. absent: Rhonchi, Wheezes - Cardiovascular Exam Cardiovascular Exam: +S1, +S2 - GI/Abdominal Exam GI & Abdominal Exam: Soft, Normal Bowel Sounds. absent: Tenderness - Extremities Exam Extremities Exam: Normal Inspection. absent: Calf Tenderness, Pedal Edema - Neurological Exam Neurological Exam: Alert, Awake, Oriented x3 - Skin Skin Exam: Normal Color, Warm Assessment and Plan - Assessment and Plan (Free Text) Plan: 50 y/o M with PMH of alcohol abuse, cocaine and heroine abuse, ascites with liver cirrhosis, ESRD (HD on , , and Monday), CAD with CABG presents to the TCU for further treatment and physical therapy after prolonged hospital stay. Pt doing well in TCU at this time and working with physical therapy. 1. C. Diff colitis - Finished vancomycin, normal stools - Monitor for loose stools 2. Left upper extremity clot - Continue warfarin - continue to check INR daily 3. Hypotension - continue Midodrine - Remains hypotensive, but at baseline 4. Ascites - S/p Paracentesis 05/05 - Monitor for re-accumulation of ascites - Pain medication, oxycodone - Lactulose for hepatic encephalopathy ppx 6. PPX - Pepcid 40mg PO HS Seen, reviewed, and discussed with attending. Gabby, PGY-1
[2016-05-09 10:28] VITALS: BP 83/52; PULSE 93; RESP 20; TEMP 97.5; O2SAT 97
--- NOTE | 2016-05-10 00:13 | PN ---
DATE: 05/09/2016 The patient is in [facility], bed #1. He may be discharged today. SUBJECTIVE: This is a 50-year-old male sitting out of bed in the chair, complaining of significant p ain which is not being relieved with the current medications. The patient is known to be a heroin ab user, cocaine and alcohol user with history of cirrhosis with ascites, status post CABG, status post dialysis for chronic kidney disease, status post intubation with right chest tube, history of DVT, le ft internal jugular vein for which initially was on heparin then with thrombocytopenia switched over to argatroban. Heparin antibodies were negative, and the patient was switched over to Coumadin. The patient also has history of hepatic encephalopathy for which he is on lactulose. His ascitic fluid was tapped several times as well. The patient is otherwise resting comfortable. Denying any other s ignificant complaints. PHYSICAL EXAMINATION: VITAL SIGNS: Stable. T-max is 98.4, pulse is 90, respirations 18, blood pressure 75/49, pulse ox is 98% on room air. HEENT: Head is normocephalic, atraumatic. Conjunctivae pale. Sclerae are anicteric. Pupils are eq ually reactive to light and accommodation. Examination of the oropharynx reveals no oropharyngeal le sions. NECK: Supple. HEART: Reveals S1 and S2 to be normal. LUNGS: Reveals scattered rhonchi bilaterally, especially on the right side. ABDOMEN: Soft with minimum, vague generalized tenderness. Fluid thrill is palpable. EXTREMITIES: Reveals no significant edema. SKIN: Warm and dry. LABORATORY DATA: From the last blood work reveals a white count of 6.7, hemoglobin 9.2, hematocrit 2 7, platelet count is now up to 104,000. Metabolic panel shows a BUN of 70, creatinine 5.4 post-dialy sis. His INR is 2.47. ASSESSMENT: Deconditioning; history of septic shock; history of deep vein thrombosis, left internal jugular vein; end-stage renal disease on dialysis; thrombocytopenia, slowly improving; subacute throm bus in the left internal jugular vein for which he is on Coumadin with a ratio of the INR to be kept between 2 and 2.5; history of Clostridium difficile enterocolitis; cirrhosis of the liver; status pos t extubation; status post placement of chest tube; status post repeated ascitic fluid tapping. RECOMMENDATIONS: Would continue the current medications and attempt to keep the INR, as I mentioned, between 2 and 2.5 with the lowest doses of Coumadin possible. PMD is adjusting the doses now of Cou madin, which is at 1.5 a day. Recommendations have been made so that the patient can be followed in the outpatient facility where he is getting his dialysis. Esha Latham MD cc: [phone] TT: 05/10/2016 00:12:48 Confirmation # [id number] Dictation # [id number]
--- NOTE | 2016-05-10 16:28 | CP.PCM.DIS ---
<Leonel Pierre - Last Filed: 05/10/16 16:22> Provider - Provider Date of Admission: 05/04/16 18:48 Attending physician: Elly Flores MD Primary care physician: Ciaran Matt Jr, MD Time Spent in preparation of Discharge (in minutes): 45 Diagnosis - Discharge Diagnosis (1) Bradycardia Status: Chronic Priority: Medium (2) Chronic pain Status: Chronic Priority: Medium (3) Hypotension Status: Chronic Priority: Medium (4) Renal failure Status: Chronic Priority: Medium Hospital Course - Lab Results Lab Results: Most Recent Lab Values WBC 6.7 10^3/ul (4.5-11.0) 05/08/16 07:40 RBC 3.07 10^6/uL (3.5-6.1) L 05/08/16 07:40 Hgb 9.2 gm/dL (14.0-18.0) L 05/08/16 07:40 Hct 27.6 % (42.0-52.0) L 05/08/16 07:40 MCV 89.9 fL (80.0-105.0) 05/08/16 07:40 MCH 30.0 pg (25.0-35.0) 05/08/16 07:40 MCHC 33.3 g/dl (31.0-37.0) 05/08/16 07:40 RDW 16.6 % (11.5-14.5) H 05/08/16 07:40 Plt Count 104 10^3/uL (120.0-450.0) L 05/08/16 07:40 MPV 11.6 fl (7.0-11.0) H 05/08/16 07:40 Gran % 80.4 % (50.0-68.0) H 05/07/16 07:40 Lymph % (Auto) 9.4 % (22.0-35.0) L 05/07/16 07:40 [place] % (Auto) 7.0 % (1.0-6.0) H 05/07/16 07:40 Eos % (Auto) 3.1 % (1.5-5.0) 05/07/16 07:40 Baso % (Auto) 0.1 % (0.0-3.0) 05/07/16 07:40 Gran # 6.41 (1.4-6.5) 05/07/16 07:40 Lymph # 0.8 (1.2-3.4) L 05/07/16 07:40 [place] # 0.6 (0.1-0.6) 05/07/16 07:40 Eos # 0.3 (0.0-0.7) 05/07/16 07:40 Baso # 0.01 K/mm3 (0.0-2.0) 05/07/16 07:40 PT 26.7 Seconds (9.9-11.8) H 05/08/16 07:40 INR 2.47 (0.93-1.08) H 05/08/16 07:40 Sodium 130 mmol/L (132-148) L 05/08/16 07:40 Potassium 4.5 mmol/L (3.6-5.0) 05/08/16 07:40 Chloride 98 mmol/L (98-107) 05/08/16 07:40 Carbon Dioxide 24 mmol/L (21-33) 05/08/16 07:40 Anion Gap 13 (10-20) 05/08/16 07:40 BUN 70 mg/dL (7-21) H 05/08/16 07:40 Creatinine 5.4 mg/dL (0.5-1.4) H 05/08/16 07:40 Est GFR ( Amer) 14 05/08/16 07:40 Est GFR (Non-Af Amer) 11 05/08/16 07:40 POC Glucose (mg/dL) 99 mg/dL (65-110) 05/07/16 11:15 Random Glucose 92 mg/dL (70-110) 05/08/16 07:40 Calcium 6.3 mg/dL (8.4-10.5) L* 05/08/16 07:40 Total Bilirubin 0.7 mg/dL (0.2-1.3) 05/07/16 07:40 AST 12 U/L (15-59) L 05/07/16 07:40 ALT 16 U/L (7-56) 05/07/16 07:40 Alkaline Phosphatase 124 U/L (38-133) 05/07/16 07:40 Total Protein 4.3 g/dL (5.8-8.3) L 05/07/16 07:40 Albumin 2.0 g/dL (3.0-4.8) L 05/07/16 07:40 Globulin 2.2 gm/dL 05/07/16 07:40 Albumin/Globulin Ratio 0.9 (1.1-1.8) L 05/07/16 07:40 - Hospital Course Hospital Course: 50 y/o with PMH of alcohol abuse, cocaine and heroine abuse, ascites with liver cirrhosis, ESRD (HD on , , and Monday), CAD with CABG in the past initially brought in by ambulance after patient was found unconscious at [facility]. Patient was found with bags of heroin in front of him. Patient is currently awake, but very altered and lethargic. Pt became hypoxic and was found to have aspiration pneumonia and intubated. Pt finished 8 days of [place] for pneumonia. Subsequent CT of chest displayed loculated effusion of the right chest. Pt had a chest tube placed by surgery which stayed in place for 2 weeks. Pt also began to develop abdominal ascites and underwent paracentesis. As pt improved, he was found to have left upper extremity blood clot and was started on heparin. Platelets began to fall and pt was transitioned to agatroban which swiftly corrected platelets. Pt was then transitioned to warfarin and transitioned out of the ICU. During the time in the ICU, pt was found to have C. diff colitis and placed on vancomycin. Pt was not improving on vancomycin and vancomycin dose was increased which cause the patient to respond. Pt undergoing dialysis on Monday, , and Saturdays during his time in the hospital. Pt was then transferred to TCU for further care. Pt continued to be hypotensive during his time in TCU, requiring fluid bolus'. Pt finished his round of vancomycin in the TCU for C. diff colitis. Pt did not have anymore bouts of diarrhea. Pt also continued to work with Physical therapy during his time there. Pt left AMA on as he thought he was not getting adequate pain medication. Appropriate paperwork was filled out and signed by the patient and witnessed by the nurse. Discharge Exam - Head Exam Head Exam: ATRAUMATIC, NORMAL INSPECTION, NORMOCEPHALIC - ENT Exam ENT Exam: Mucous Membranes Moist, Normal Exam - Respiratory Exam Respiratory Exam: NORMAL BREATHING PATTERN, UNREMARKABLE. absent: Rales, Rhonchi - Cardiovascular Exam Cardiovascular Exam: RRR, +S1, +S2 - GI/Abdominal Exam GI & Abdominal Exam: Normal Bowel Sounds, Soft. absent: Tenderness - Extremities Exam Extremities exam: normal inspection - Neurological Exam Neurological exam: Alert, CN II-XII Intact, Oriented x3 - Psychiatric Exam Psychiatric exam: Normal Affect, Normal Mood - Skin Skin Exam: Normal Color, Warm Discharge Plan - Follow Up Plan Condition: GOOD Disposition: AGAINST MEDICAL ADVICE Referrals: Ciaran Matt Jr., MD [Primary Care Provider] - <Elly Flores - Last Filed: 05/10/16 17:51> Provider - Provider Date of Admission: 05/04/16 18:48 Attending physician: Elly Flores MD Primary care physician: Ciaran Matt Jr, MD Hospital Course - Lab Results Lab Results: Most Recent Lab Values WBC 6.7 10^3/ul (4.5-11.0) 05/08/16 07:40 RBC 3.07 10^6/uL (3.5-6.1) L 05/08/16 07:40 Hgb 9.2 gm/dL (14.0-18.0) L 05/08/16 07:40 Hct 27.6 % (42.0-52.0) L 05/08/16 07:40 MCV 89.9 fL (80.0-105.0) 05/08/16 07:40 MCH 30.0 pg (25.0-35.0) 05/08/16 07:40 MCHC 33.3 g/dl (31.0-37.0) 05/08/16 07:40 RDW 16.6 % (11.5-14.5) H 05/08/16 07:40 Plt Count 104 10^3/uL (120.0-450.0) L 05/08/16 07:40 MPV 11.6 fl (7.0-11.0) H 05/08/16 07:40 Gran % 80.4 % (50.0-68.0) H 05/07/16 07:40 Lymph % (Auto) 9.4 % (22.0-35.0) L 05/07/16 07:40 [place] % (Auto) 7.0 % (1.0-6.0) H 05/07/16 07:40 Eos % (Auto) 3.1 % (1.5-5.0) 05/07/16 07:40 Baso % (Auto) 0.1 % (0.0-3.0) 05/07/16 07:40 Gran # 6.41 (1.4-6.5) 05/07/16 07:40 Lymph # 0.8 (1.2-3.4) L 05/07/16 07:40 [place] # 0.6 (0.1-0.6) 05/07/16 07:40 Eos # 0.3 (0.0-0.7) 05/07/16 07:40 Baso # 0.01 K/mm3 (0.0-2.0) 05/07/16 07:40 PT 26.7 Seconds (9.9-11.8) H 05/08/16 07:40 INR 2.47 (0.93-1.08) H 05/08/16 07:40 Sodium 130 mmol/L (132-148) L 05/08/16 07:40 Potassium 4.5 mmol/L (3.6-5.0) 05/08/16 07:40 Chloride 98 mmol/L (98-107) 05/08/16 07:40 Carbon Dioxide 24 mmol/L (21-33) 05/08/16 07:40 Anion Gap 13 (10-20) 05/08/16 07:40 BUN 70 mg/dL (7-21) H 05/08/16 07:40 Creatinine 5.4 mg/dL (0.5-1.4) H 05/08/16 07:40 Est GFR ( Amer) 14 05/08/16 07:40 Est GFR (Non-Af Amer) 11 05/08/16 07:40 POC Glucose (mg/dL) 99 mg/dL (65-110) 05/07/16 11:15 Random Glucose 92 mg/dL (70-110) 05/08/16 07:40 Calcium 6.3 mg/dL (8.4-10.5) L* 05/08/16 07:40 Total Bilirubin 0.7 mg/dL (0.2-1.3) 05/07/16 07:40 AST 12 U/L (15-59) L 05/07/16 07:40 ALT 16 U/L (7-56) 05/07/16 07:40 Alkaline Phosphatase 124 U/L (38-133) 05/07/16 07:40 Total Protein 4.3 g/dL (5.8-8.3) L 05/07/16 07:40 Albumin 2.0 g/dL (3.0-4.8) L 05/07/16 07:40 Globulin 2.2 gm/dL 05/07/16 07:40 Albumin/Globulin Ratio 0.9 (1.1-1.8) L 05/07/16 07:40 Attending/Attestation - Attestation I have personally seen and examined this patient.: Yes I have fully participated in the care of the patient.: Yes I have reviewed all pertinent clinical information, including history, physical exam and plan: Yes Notes (Text): D/C SUMMARY for 05/09/16 50 year old male with past medical history of alcohol abuse, cocaine/heroin abuse, ascites, cirrhosis, ESRD and CAD who presented initially with AMS secondary to suspected substance abuse and pneumonia. He was initially in the ICU, intubated on pressors and antibiotics. His symptoms improved as did his mental status. He was extubated and off pressors. He completed his antibiotics for pneumonia. He was also found to have ascites s/p paracentesis x 2. He had c dif and completed antibiotics. He had DVT UE and is on anticoagulation. He is on midodrine for chronic hypotension. He was transferred to TCU for physical therapy and conditioning. While in TCU he had low BP which is chronic. He was asking for narcotics and it was explained to him risks of further lowering of blood pressure. Patient was upset and signed out AMA. He was explained the risks of signing out AMA by the resident. Advised to follow up with pmd and counselled on risks of continued substance abuse. Elly Flores MD Hospitalist.
== END 2016-05-09 16:35 | disposition left against medical advice (07) | DRG 871 ==
LOC: TRCU 18:48
PROVIDERS: ADMIT Internal Medicine; ATTEND Internal Medicine
PROC: F07Z9ZZ Gait Training/Functional Ambulation Treatment (ICD-10-PCS; principal; 2016-05-06)
PROC: F07M6ZZ Therapeutic Exercise Treatment of Musculoskeletal System - Whole Body (ICD-10-PCS; 2016-05-06)
PROC: F08Z0ZZ Bathing/Showering Techniques Treatment (ICD-10-PCS; 2016-05-06)
PROC: F08Z0ZZ Bathing/Showering Techniques Treatment (ICD-10-PCS; 2016-05-06)
DX: A41.9 Sepsis, unspecified organism (principal); G92 Toxic encephalopathy; J96.91 Respiratory failure, unspecified with hypoxia; J69.0 Pneumonitis due to inhalation of food and vomit; R65.21 Severe sepsis with septic shock; A04.7 Enterocolitis due to Clostridium difficile; I82.622 Acute embolism and thrombosis of deep veins of left upper extremity; J90 Pleural effusion, not elsewhere classified; N18.6 End stage renal disease; I82.C19 Acute embolism and thrombosis of unspecified internal jugular vein; R18.8 Other ascites; T40.1X1A Poisoning by heroin, accidental (unintentional), initial encounter; I95.89 Other hypotension; D69.6 Thrombocytopenia, unspecified; E87.70 Fluid overload, unspecified; E87.5 Hyperkalemia; E87.6 Hypokalemia; F19.10 Other psychoactive substance abuse, uncomplicated; G89.29 Other chronic pain; I25.10 Atherosclerotic heart disease of native coronary artery without angina pectoris; K74.60 Unspecified cirrhosis of liver; Y95 Nosocomial condition; Z16.24 Resistance to multiple antibiotics; Z59.0 Homelessness; Z87.01 Personal history of pneumonia (recurrent); Z87.891 Personal history of nicotine dependence; Z95.1 Presence of aortocoronary bypass graft; R00.1 Bradycardia, unspecified; S00.01XA Abrasion of scalp, initial encounter; K42.9 Umbilical hernia without obstruction or gangrene; R53.81 Other malaise; F10.10 Alcohol abuse, uncomplicated; F14.10 Cocaine abuse, uncomplicated; F11.10 Opioid abuse, uncomplicated; K72.90 Hepatic failure, unspecified without coma

== ENCOUNTER 2016-05-05 15:28 | Day surgery (SDC) | payer MEDICARE, OTHER ==
[2016-05-05 16:18] VITALS: BMI 25.3
[2016-05-05 18:20] VITALS: BP 90/60; PULSE 64; RESP 18; TEMP 97.3; O2SAT 97
--- NOTE | 2016-05-05 19:48 | US ---
PROCEDURE: Ultrasound guided paracentesis. HISTORY: Alcoholic cirrhosis Recurrent ascites with abdominal pain and distension. Needs repeat paracentesis. PHYSICIAN(S): Josh Gayle MD. TECHNIQUE: The relative risks and indications for the procedure were explained to the patient and informed written consent obtained. Sonography of the abdomen was performed in a supine position. This revealed a moderate amount of non-loculated ascites, greatest in the right lower quadrant. A puncture site was selected and the area was prepped and draped in the usual sterile fashion. 1% Xylocaine was used to anesthetize the skin and soft tissues. A 7 Arabic paracentesis catheter was trocared into the right lower quadrantand 5000 cc of roger fluid aspirated. No labs were sent IMPRESSION: Ultrasound-guided paracentesis in the right lower quadrant. 5000 cc of fluid were aspirated.
== END 2016-05-05 19:03 ==
LOC: OPSURG 15:28
PROVIDERS: ATTEND Radiology Vascular & Interventional Radiology
DX: K70.31 Alcoholic cirrhosis of liver with ascites (principal); R10.9 Unspecified abdominal pain